=== PATIENT | male | born 1965 | race Caucasian/White ===

== ENCOUNTER 2020-04-04 18:39 | Outpatient (REF) | payer OTHER, SELFPAY ==
--- NOTE | 2020-04-04 18:51 | MR_ITS ---
EXAMINATION: MR LUMBAR SPINE WITHOUT CONTRAST CLINICAL INFORMATION: Disc degeneration, low back pain. COMPARISON: Plain films of the lumbar spine 01/12/2020. MRI scan of the lumbar spine 07/06/2012. TECHNIQUE: MRI of the lumbar spine was obtained using routine sequences without contrast. FINDINGS: VERTEBRAL BODIES AND PARASPINAL STRUCTURES: The study redemonstrates a dextroscoliosis. There are mild retrolistheses of L4 on L5 and L5 on S1. There is narrowing of intervertebral disc height with loss of signal throughout the lumbar spine, relatively sparing L3-L4. There are mild degenerative endplate contour changes with edematous signal toward the right at L5-S1. Vertebral body heights are maintained. No fractures are demonstrated. Marrow signal is homogenous overall. The visualized retroperitoneal and pelvic structures are unremarkable. CONUS MEDULLARIS AND CAUDA EQUINA: Normal, terminating at the level of L1-L2. The lower thoracic spinal cord appears normal. The cauda equina nerve roots and filum terminale appear normal. SPINAL LEVELS: L1-L2: The transverse processes are partially articulated. The facet joints appear normal. There is a small right foraminal disc protrusion without definite exiting nerve root impingement. There is no central stenosis. L2-L3: There is mild bilateral facet arthropathy with ligamenta flava hypertrophy and small facet joint effusions. There is a right foraminal disc protrusion extending far laterally with impingement on the extraforaminal right L2 nerve root, which has developed since the prior study. There is no central stenosis. L3-L4: There is mild bilateral facet arthropathy with ligamenta flava hypertrophy. Disc contour is normal. There is no central stenosis or foraminal narrowing. L4-L5: There is mild to moderate bilateral facet arthropathy. There is a small right paracentral disc protrusion which distorts the ventral thecal sac and narrows the right subarticular recess, similar compared to prior imaging. There is no foraminal nerve root impingement. There is no central stenosis. L5-S1: There is mild to moderate bilateral facet arthropathy. There is a broad-based posterior disc protrusion extending into the right greater than left neural foramina, and there is impingement on the exiting right L5 nerve root. The right neural foramen is further narrowed by right-sided facet osteophytes. There is no central stenosis. These findings appear similar compared to prior imaging. IMPRESSION: 1. At L2-L3 there is now a right foraminal disc protrusion extending far laterally with impingement on the extraforaminal right L2 nerve root. 2. At L4-L5 there is a small right paracentral disc protrusion with narrowing of the right subarticular recess, similar compared to prior imaging. 3. At L5-S1 there is a posterior disc protrusion extending into the right greater than left neural foramina, with impingement on the exiting right L5 nerve root. There is no central stenosis. These findings appear stable.
== END 2020-04-04 18:40 | disposition home or self-care (01) ==
LOC: HO.MRI 18:39
PROVIDERS: Visit Provider Anesthesiology
DX: M51.36 Other intervertebral disc degeneration, lumbar region (principal)
CPT/HCPCS: 72148

== ENCOUNTER → 2020-04-17 10:56 | Outpatient (BNVA) | payer OTHER, SELFPAY | PROVIDERS: PCP Internal Medicine; Visit Provider Anesthesiology | DX: M47.816 Spondylosis without myelopathy or radiculopathy, lumbar region (principal); E11.65 Type 2 diabetes mellitus with hyperglycemia; E11.42 Type 2 diabetes mellitus with diabetic polyneuropathy; G90.523 Complex regional pain syndrome I of lower limb, bilateral | CPT/HCPCS: 99214 ==

== ENCOUNTER 2020-05-28 06:17 | Outpatient (REF) | payer OTHER, SELFPAY ==
--- NOTE | 2020-05-28 08:38 | FL_ITS ---
EXAMINATION: XR FLUOROSCOPY WITH IMAGES CLINICAL INFORMATION: M47.816 - Spondylosis without myelopathy or radiculopathy, lumbar region COMPARISON: MRI lumbar spine 04/04/2020 TECHNIQUE: Fluoroscopy performed by Marjorie Tapia NP. Fluoroscopy time: 0.8 minutes DAP: 12.0 Gycm2 Images: 6 FINDINGS: There are bilateral spinal needles overlying outer aspect of the L3-L4, L4-L5, and L5-S1 neural foramen. Contrast is seen in the nerve sheaths with some transforaminal epidural extension. FL/FL guidance in treatment room IMPRESSION: Fluoroscopy for pain management procedures.
== END 2020-05-28 06:18 | disposition home or self-care (01) ==
LOC: HO.RADIR 06:17
PROVIDERS: Visit Provider Anesthesiology
DX: M47.816 Spondylosis without myelopathy or radiculopathy, lumbar region (principal); E11.65 Type 2 diabetes mellitus with hyperglycemia; E11.42 Type 2 diabetes mellitus with diabetic polyneuropathy; G90.523 Complex regional pain syndrome I of lower limb, bilateral
CPT/HCPCS: 64493; 64494; Q9967

== ENCOUNTER → 2020-06-03 15:17 | Outpatient (BNVA) | payer OTHER, SELFPAY | PROVIDERS: PCP Internal Medicine; Referring Provider Internal Medicine; Visit Provider Anesthesiology | DX: M47.816 Spondylosis without myelopathy or radiculopathy, lumbar region (principal); E11.65 Type 2 diabetes mellitus with hyperglycemia; E11.42 Type 2 diabetes mellitus with diabetic polyneuropathy; G90.523 Complex regional pain syndrome I of lower limb, bilateral | CPT/HCPCS: 99212 ==

== ENCOUNTER 2020-08-01 10:00 | Outpatient (RCR) | payer OTHER, SELFPAY ==
--- NOTE | 2020-06-24 13:00 | MHC.PT.EP ---
[facility] [place] Office [place] Office [place] Office [address] [place] Rand [address] [phone] F: [phone] F: [phone] F: [phone] F: [phone] Physical Therapy Plan of Care Date of Evaluation: 06/24/20 Date of Surgery: none Diagnosis: lumbar spondylosis without myelopathy Assessment: Patient is a 54 year old R handed male who presents with s/s consistent with lumbar spondylosis without myelopathy and radiculopathy. He is currently not working after losing his job in December. He has had chronic low back pain with MRI confirming significant pathology. He also admittedly has poorly controlled Diabetes with peripheral neuropathy. Current impairments include pain, ROM, strength, safety, independence, activity tolerance and functional mobility. Functional limitations include decreased ability to walk, stand, transfer, negotiate stairs, and perform weight bearing activities.. Patient is motivated with good rehab potential. Skilled PT will address impairments and functional limitations in order to achieve goals. 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 Manual therapy to restore motion and function. Therapeutic exercise to improve strength and flexibility. Neuromuscular re-education for posture and balance. Therapeutic activities to return to functional activities of daily living. Electronically signed by: Vikram Woo, PT Please sign and return to therapist. Thank you for your referral.
--- NOTE | 2020-08-23 07:51 | MHC.PT.DC ---
[facility] [place] Office [place] Office [place] Office [address] [place] Rand 140 [facility] [phone] F: [phone] F: [phone] F: [phone] F: [phone] Physical Therapy Discharge Report Diagnosis: lumbar spondylosis without myelopathy Date of Surgery: none Date of Evaluation: 06/24/20 Date of Discharge: 08/23/20 Treatments to Date: 11 Cancellations to Date: No Shows to Date: Discharge Status: Recommend MD Follow-up Discharge Summary: Due to no significant improvement on impairments and functional limitations, we will d/c to HEP with edu on TENS at this time. Pt had very limited activity tolerance, and was unable to have appreciable improvement over the course of skilled PT. He had TTP that never resolved, impaired joint mobility and alignment, and poor response to strength, ROM, flexibility interventions where he had a tough time progressing toward higher level intervention that would translate more to his daily function. As a result of the limited progress, we are holding PT at this time and referring back to MD. Electronically signed by: Vikram Woo, PT Please sign and return to therapist. Thank you for your referral.
== END 2020-08-23 07:52 | disposition home or self-care (01) ==
LOC: HO.PTCHIC 10:00
PROVIDERS: PCP Internal Medicine; Visit Provider Anesthesiology
DX: M47.816 Spondylosis without myelopathy or radiculopathy, lumbar region (principal)
CPT/HCPCS: 97014; 97110; 97112; 97140; 97162

== ENCOUNTER 2020-10-16 11:06 | Outpatient (REF) | payer OTHER, SELFPAY ==
[2020-10-16 14:03] LABS: Hematocrit 44.9 % (42-52); Hemoglobin 15.3 g/dl (14.0-18.0)
[2020-10-16 14:19] LABS: Estimated Average Glucose 163 mg/dL; Hemoglobin A1c % 7.3 %
[2020-10-16 14:42] LABS: Alanine Aminotransferase 39 U/L (0-40); Albumin Level 4.5 g/dL (3.5-5.0); Alkaline Phosphatase 117 U/L (39-117); Anion Gap 17 (12-20); Aspartate Amino Transferase 24 U/L (5-37); Blood Urea Nitrogen 26 mg/dL (9-16); Calcium 9.8 mg/dL (8.4-10.2); Carbon Dioxide 27 mmol/L (22-29); Chloride 101 mmol/L (96-108); Cholesterol 96 mg/dL; Estimated Glomerular Filt Rate 47; HDL Cholesterol 34 mg/dL; LDL Cholesterol Calculated 40 mg/dl; Potassium 4.7 mmol/L (3.3-5.1); Sodium 140 mmol/L (135-145); Total Protein 7.3 g/dL (6.5-8.0); Triglycerides 114 mg/dL
[2020-10-16 15:15] LABS: Glucose Random 300 mg/dL (60-115)
[2020-10-16 15:39] LABS: Creatinine Urine 186.37 mg/dL; Microalbum/Creatinine Ratio Ur 17.1 ug/mg cr
[2020-10-17 07:41] LABS: LDL Cholesterol Direct 41 mg/dL (<100)
== END 2020-10-16 11:07 | disposition home or self-care (01) ==
LOC: HO.HMGCLDS 11:06
PROVIDERS: PCP Internal Medicine; Visit Provider Internal Medicine
DX: E11.65 Type 2 diabetes mellitus with hyperglycemia (principal); E11.42 Type 2 diabetes mellitus with diabetic polyneuropathy; E78.9 Disorder of lipoprotein metabolism, unspecified; I10 Essential (primary) hypertension; E66.9 Obesity, unspecified; F33.9 Major depressive disorder, recurrent, unspecified; G90.523 Complex regional pain syndrome I of lower limb, bilateral; Z79.4 Long term (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
CPT/HCPCS: 36415; 80048; 80053; 80061; 82043; 83036; 83721; 85014; 85018

== ENCOUNTER → 2020-10-21 12:18 | Outpatient (BNVA) | payer OTHER, SELFPAY | PROVIDERS: PCP Internal Medicine; Visit Provider Anesthesiology ==

== ENCOUNTER 2020-12-10 06:30 | Outpatient (REF) | payer OTHER, SELFPAY ==
--- NOTE | ~2020-12-10 | FL_ITS ---
EXAMINATION: XR FLUOROSCOPY WITH IMAGES CLINICAL INFORMATION: Spondylosis without myelopathy COMPARISON: None. TECHNIQUE: Fluoroscopy performed by Marjorie church. Fluoroscopy time: 0.6 minutes DAP: 12.3 Gycm2 Images: 6 FINDINGS: There are needles positioned bilaterally lateral to S1 transverse processes, superior to bilateral L4 and L5 pedicles with contrast opacifying the soft tissues for pain management. Visualized bones and soft tissues are unremarkable. FL/FL guidance in treatment room IMPRESSION: Fluoroscopy was provided to an at least Marjorie Church during pain management
== END 2020-12-10 06:31 | disposition home or self-care (01) ==
LOC: HO.RADIR 06:30
PROVIDERS: Visit Provider Anesthesiology
DX: M47.816 Spondylosis without myelopathy or radiculopathy, lumbar region (principal); G90.523 Complex regional pain syndrome I of lower limb, bilateral; E11.65 Type 2 diabetes mellitus with hyperglycemia; E11.42 Type 2 diabetes mellitus with diabetic polyneuropathy
CPT/HCPCS: 64493; 64494; Q9967

== ENCOUNTER 2020-12-23 16:13 | Outpatient (REF) | payer OTHER, SELFPAY ==
--- NOTE | ~2020-12-23 | XR_ITS ---
EXAMINATION: XR HIP, RIGHT XR PELVIS CLINICAL INFORMATION: Osteoarthritis. COMPARISON: None TECHNIQUE: Two views of the right hip. Two AP views of the pelvis. FINDINGS: Imaged lower lumbar spine is unremarkable. Sacroiliac joints and pubic symphysis are intact. The sacrum is partially obscured by overlying bowel contents. Surgical clips project over the groin soft tissues. There is normal alignment of the right hip. No significant cartilage space loss. No displaced fracture or dislocation. XR/XR hip RT min 2V IMPRESSION: No acute abnormality.
== END 2020-12-23 16:14 | disposition home or self-care (01) ==
LOC: HO.XRAY 16:13
PROVIDERS: PCP Internal Medicine; Visit Provider Anesthesiology
DX: M47.816 Spondylosis without myelopathy or radiculopathy, lumbar region (principal); M16.9 Osteoarthritis of hip, unspecified; E11.65 Type 2 diabetes mellitus with hyperglycemia; E11.42 Type 2 diabetes mellitus with diabetic polyneuropathy; G90.523 Complex regional pain syndrome I of lower limb, bilateral
CPT/HCPCS: 73502; 99212

== ENCOUNTER → 2021-01-02 14:26 | Outpatient (BNVA) | payer OTHER, SELFPAY | PROVIDERS: PCP Internal Medicine; Visit Provider Anesthesiology | DX: E11.65 Type 2 diabetes mellitus with hyperglycemia (principal); E11.42 Type 2 diabetes mellitus with diabetic polyneuropathy; I10 Essential (primary) hypertension; G90.523 Complex regional pain syndrome I of lower limb, bilateral; M47.816 Spondylosis without myelopathy or radiculopathy, lumbar region; M16.9 Osteoarthritis of hip, unspecified; Z79.4 Long term (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 | CPT/HCPCS: 99212 ==

== ENCOUNTER 2021-01-09 08:47 | Outpatient (REF) | payer OTHER, SELFPAY ==
[2021-01-09 11:30] LABS: Hemoglobin 14.6 g/dl (14.0-18.0)
[2021-01-09 11:58] LABS: Microalbum/Creatinine Ratio Ur 3.9 ug/mg cr
[2021-01-09 12:06] LABS: Anion Gap 14 (12-20); Blood Urea Nitrogen 38 mg/dL (9-16); Carbon Dioxide 25 mmol/L (22-29); Chloride 102 mmol/L (96-108); Estimated Glomerular Filt Rate 52; Glucose Fasting 178 mg/dL (60-99); Sodium 137 mmol/L (135-145)
== END 2021-01-09 08:48 | disposition home or self-care (01) ==
LOC: HO.HMGCLDS 08:47
PROVIDERS: PCP Internal Medicine; Visit Provider Internal Medicine
DX: E11.42 Type 2 diabetes mellitus with diabetic polyneuropathy (principal); E11.65 Type 2 diabetes mellitus with hyperglycemia; E78.9 Disorder of lipoprotein metabolism, unspecified; I10 Essential (primary) hypertension; E66.9 Obesity, unspecified; F33.9 Major depressive disorder, recurrent, unspecified; G90.523 Complex regional pain syndrome I of lower limb, bilateral; Z79.4 Long term (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
CPT/HCPCS: 36415; 80048; 82043; 85014; 85018

== ENCOUNTER → 2021-02-17 13:57 | Outpatient (BNVA) | payer OTHER, SELFPAY | PROVIDERS: Visit Provider Internal Medicine | DX: L03.818 Cellulitis of other sites (principal) | CPT/HCPCS: 99212 ==

== ENCOUNTER 2021-03-04 06:30 | Outpatient (REF) | payer OTHER, SELFPAY ==
--- NOTE | ~2021-03-04 | FL_ITS ---
EXAMINATION: XR FLUOROSCOPY WITH IMAGES CLINICAL INFORMATION: Sacrococcygeal disorder. COMPARISON: None. TECHNIQUE: Fluoroscopy performed by Marjorie Tapia. Fluoroscopy time: 0.2 minutes DAP: 2.83 Gycm2 Images: 2 FINDINGS: There are 2 images revealing needle positioned along the SI joint with minimal contrast opacifying the SI joint and the adjacent soft tissues. FL/FL guidance in treatment room IMPRESSION: Fluoroscopy was provided to Marjorie Tapia during SI joint injection.
== END 2021-03-04 06:31 | disposition home or self-care (01) ==
LOC: HO.RADIR 06:30
PROVIDERS: Visit Provider Anesthesiology
DX: M53.3 Sacrococcygeal disorders, not elsewhere classified (principal)
CPT/HCPCS: 27096; J3300; Q9967

== ENCOUNTER 2021-03-22 10:46 | Inpatient (IN) | payer OTHER, SELFPAY ==
[2021-03-22] VITALS (9 sets, daily range): BP systolic 96–132; BP diastolic 48–97; PULSE 72–95; RESP 16–18; TEMP 36.7–36.8; O2SAT 96–99; BMI 35.3
--- NOTE | ~2021-03-22 | CT_ITS ---
EXAMINATION: CT abdomen pelvis wo con CLINICAL INFORMATION: Reason for Exam left flank pain ? kidney stone COMPARISON: No prior CT available for comparison. TECHNIQUE: Multidetector volumetric imaging was performed from the superior aspect of the liver through the pubic symphysis 100 mL of Omnipaque 300 injected Sagittal and coronal reformatted images were obtained on the technologist's workstation. This CT examination was performed using dose optimization techniques as appropriate, variously including the following: *Automated exposure control *Adjustment of mA and/or kV according to patient size (this includes techniques or standardized protocols for targeted exams where dose is matched to indication/reason for exam; i.e. extremities or head) *Use of iterative reconstruction technique DLP: 2675 mGy-cm FINDINGS: LOWER THORAX: Included lung bases are clear. HEPATOBILIARY: No focal hepatic lesions. No biliary ductal dilatation. GALLBLADDER: Gallbladder unremarkable. SPLEEN: Spleen is normal in size. PANCREAS: No focal mass or ductal dilatation. STOMACH AND GASTROINTESTINAL TRACT: Stomach is grossly unremarkable. There is no bowel distention or thickening. There are few diverticula, no evidence of diverticulitis. Appendix is unremarkable. ADRENALS: No adrenal nodules. KIDNEYS/URETERS: There is a left renal hydronephrosis and hydroureter secondary to 3 mm stone lodged in the proximal left ureter about 9 cm from the left ureteropelvic junction this stone measure 5 mm craniocaudally, it is too small for accurate Hounsfield unit attenuation measurement. There is nonobstructing 3 mm stone in the collecting system of the right kidney upper pole and about 4 4 mm nonobstructing stone lower calyx right kidney. No hydronephrosis on the right side. Mild perinephric fat stranding around the left kidney suggesting moderate degree of obstruction. URINARY BLADDER: Partially decompressed. PELVIC VISCERA: Unremarkable PERITONEUM: No free air or fluid. LYMPH NODES: No lymphadenopathy. VASCULAR:Abdominal aorta normal in size, no aneurysm found. BONES, ABDOMINAL WALL AND SOFT TISSUES: Age-appropriate changes of the spine and skeletal system, no destructive osteolytic or osteosclerotic bone lesion found CT/CT abdomen pelvis wo con IMPRESSION: 1. Mild to moderate left renal hydronephrosis and hydroureter secondary to 5 mm stone lodged in the mid course left ureter about 9 cm from the left UPJ. Mild perinephric fat stranding suggesting moderate degree of obstruction. 2. There are nonobstructing stones in the right kidney. 3. Mild diverticular disease.
[2021-03-22 11:59] LABS: Appearance Urine CLEAR; Color Urine YELLOW; Glucose Urine UA NEG (NEG); Leukocyte Esterase Urine NEG (NEG); Nitrite Urine NEG (NEG); PH 5.5 (5.0-8.0); Specific Gravity - Urine >= 1.030 (1.005-1.025); UACC Culture Trigger NO; Urine Blood 2+ (NEG); Urine Ketones NEG (NEG); Urine Protein NEG (NEG-TRACE)
[2021-03-22 12:08] LABS: RBC Urine 30-49 /HPF (0); Renal Epithelial Cells Urine 1+ /LPF
--- NOTE | 2021-03-22 12:32 | ED.GENADULT ---
HPI - General Adult General Chief complaint: General Medical Stated complaint: abd pain Time Seen by Provider: 03/22/21 12:30 History of Present Illness HPI narrative: Patient is 55-year-old male presents today with having abdominal pain. The pain is over the left flank area radiating to the left front. It is sharp in nature is been ongoing for last 3 4 days associated with nausea. No vomiting. Positive generalized malaise. No history of similar pain the past. History of kidney stones in the past. History diabetes. Question history of kidney problems. No cough no congestion or upper respiratory symptoms. Patient been vaccinated for COVID. No pain on urination. No frequency. No change in bowel movement. No history of abdominal surgery in the past. Related Data Home Medications Medication Instructions Recorded Confirmed bupropion HCl 300 mg 24 hr tablet, 300 mg PO QAM 04/17/20 01/15/21 extended release gabapentin 800 mg tablet 800 mg PO TID 04/17/20 01/15/21 insulin aspart U-100 100 unit/mL 6 unit SUBCUT TID 04/17/20 01/15/21 (3 mL) subcutaneous pen duloxetine 60 mg capsule,delayed 60 mg PO DAILY 06/19/20 01/15/21 release aripiprazole 5 mg tablet 5 mg PO DAILY 10/16/20 01/15/21 trazodone 50 mg tablet 50 mg PO BEDTIME 02/07/21 Previous Rx's Medication Instructions Recorded blood-glucose meter (FreeStyle #1 ea 05/30/20 Lite Meter) lancets 28 gauge (FreeStyle #100 ea 05/30/20 Lancets) aspirin 81 mg tablet,delayed 81 mg PO DAILY 90 Days #90 tab 06/13/20 release (Aspirin Low Dose) amlodipine 10 mg tablet 10 mg PO DAILY 90 Days #90 tab 08/28/20 allopurinol 300 mg tablet 300 mg PO DAILY #30 tab 09/09/20 furosemide 20 mg tablet 20 mg PO QAM 90 Days #90 tab 09/30/20 pioglitazone 15 mg tablet 15 mg PO DAILY #90 tab 10/11/20 insulin aspart U-100 100 unit/mL 7 unit SUBCUT TID 90 Days #18.9 ml 11/12/20 (3 mL) subcutaneous pen (Novolog Flexpen U-100 Insulin aspart) insulin glargine 100 unit/mL (3 60 unit SUBCUT QPM 90 Days #54 ml 11/12/20 mL) subcutaneous pen (Lantus Solostar U-100 Insulin) clotrimazole-betamethasone 1 1 appl TOPICAL BID #45 g 01/06/21 %-0.05 % topical cream atorvastatin 20 mg tablet 20 mg PO DAILY 90 Days #90 tab 01/09/21 spironolactone 25 mg tablet 25 mg PO DAILY 90 Days #90 tab 01/17/21 doxycycline hyclate 100 mg tablet 100 mg PO BID #14 tab 02/07/21 prednisone 20 mg tablet 20 mg PO .COMPLEX #18 tab 02/07/21 tizanidine 4 mg tablet 4 mg PO TID PRN 30 Days #90 tab 02/25/21 losartan 100 mg tablet 100 mg PO DAILY #90 tab 03/04/21 oxycodone 5 mg tablet 5 mg PO Q8H PRN #7 tab 03/22/21 tamsulosin 0.4 mg capsule (Flomax) 0.4 mg PO DAILY #7 cap 03/22/21 Allergies Allergy/AdvReac Type Severity Reaction Status Date / Time No Known Allergies Allergy Verified 03/22/21 11:06 Review of Systems Review of Systems: No fever no chills No cough no congestion or upper Respiratory symptoms. No diaphoresis Positive flank pain on the left side. Positive nausea. Yes all other systems are reviewed and are negative [facility] Past Medical History Medical History (Updated 03/22/21 @ 15:23 by Ligia Shultz MD) Complex regional pain syndrome of both lower extremities Depression, major, recurrent Diabetes 1.5, managed as type 1 Diabetes type 2, uncontrolled Diabetic peripheral neuropathy Fatty liver Gout 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, essential Kidney stones Lipid disorder 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 Spondylosis of lumbar region without myelopathy or radiculopathy Family History Family History Other Mental health disorder Social History Social History Housing: Condominium Alcohol intake: never Patient Tobacco Use Status: Never used Tobacco Second Hand Smoke Exposure: No Use of substances other than those prescribed or required for medical reasons: No Advance Directives: No Advance Directives Information Provided: No Current occupational status: disabled Physical Exam Vital Signs: Vital Signs: Last Vital Signs Temp 98.3 F 03/22/21 11:07 Pulse 73 03/22/21 15:07 Resp 18 03/22/21 15:07 BP 113/63 03/22/21 15:07 Pulse Ox 99 03/22/21 15:07 Body Mass Index 35.3 Appearance: Alert. Oriented X3. No acute distress. Eyes: Pupils equal, round and reactive to light. ENT: Pharynx normal. Neck: Normal inspection. Neck supple. No lymph nodes noted. No crepitus CVS: Normal heart rate and rhythm. Pulses normal. Normal S1 and S2 Respiratory: No respiratory distress. Breath sounds normal. No Wheezing. No rales Abdomen: Soft and nontender. No rigidity. No distention. good BS x4 Skin: Skin warm and dry. Normal skin color. Normal skin turgor. Extremities: No lower extremity edema. Neurovascular intact to all extremities. No Lacerations. No Rash Neuro: Oriented X 3. No motor deficit. No sensory deficit. Moving all extermities. No slurred speech Medical Decision Making MDM Narrative Medical decision making narrative: Patient's CT scan of the abdomen positive for a kidney stone. 5 mm mid ureter. Likely causing patient's symptoms. We will give pain medication. Patient's urine showed no infection. Creatinine mildly elevated will have patient follow-up with urology on an outpatient basis. Percocet for pain. Zofran for nausea. Flomax to help move the stone. Patient in stable condition with discharge home. Patient given additional pain medication however prior to discharge patient had increasing in amount of pain. Case was discussed with Urology. An official consult was placed. Will admit patient to the hospitalist service. Patient's case discussed with the hospitalist as well. Understood patient dilemma. Currently in stable condition awaiting admission. Lab Data Result diagrams: 03/22/21 12:56 03/22/21 12:56 Labs: Lab Results 03/22/21 03/22/21 03/22/21 Range/Units 11:50 12:56 12:56 WBC 8.3 (4.8-10.8) X10*3/uL RBC 4.22 L (4.60-5.80) X10*6/uL Hgb 13.2 L (14.0-18.0) g/dl Hct 37.9 L (42-52) % MCV 89.8 (80-98) fL MCH 31.3 (27.0-33.0) pg MCHC 34.8 (31.0-36.0) g/dl RDW 13.1 (11.0-16.0) % Plt Count 201 (160-400) X10*3/uL MPV 10.5 (9.4-12.4) fL Immature Gran % (Auto) 0.2 (0.0-0.4) % Neut % (Auto) 86.7 H (45-73) % Lymph % (Auto) 6.9 L (20-40) % [place] % (Auto) 4.8 (2-11) % Eos % (Auto) 1.0 (0-4) % Baso % (Auto) 0.4 (0-2) % Lymph # (Auto) 0.6 L (1.2-4.9) X10*3/uL [place] # (Auto) 0.4 (0.1-1.2) X10*3/uL Eos # (Auto) 0.1 (0.0-0.4) X10*3/uL Baso # (Auto) 0.0 (0.0-0.2) X10*3/uL Abs Immat Gran (auto) 0.02 (0.00-0.03) X10*3/uL Absolute Neuts (auto) 7.2 (2.0-8.3) X10*3/uL Absolute Nucleated RBC 0.000 (0.0-0.012) X10*3/uL Nucleated RBC % (auto) 0.0 (0.0-0.2) /100WBC Sodium 137 (135-145) mmol/L Potassium 4.8 (3.3-5.1) mmol/L Chloride 103 (96-108) mmol/L Carbon Dioxide 24 (22-29) mmol/L Anion Gap 15 (12-20) BUN 33 H (9-16) mg/dL Creatinine 1.77 H (0.5-1.4) mg/dL Estim Creat Clear Calc 69.8 Estimated GFR 40 Random Glucose 274 H (60-115) mg/dL Calcium 9.6 (8.4-10.2) mg/dL Total Bilirubin 0.6 (0.0-1.0) mg/dL Direct Bilirubin 0.3 (0.0-0.5) mg/dL AST 17 (5-37) U/L ALT 45 H (0-40) U/L Alkaline Phosphatase 77 D (39-117) U/L Total Protein 6.5 (6.5-8.0) g/dL Albumin 4.0 (3.5-5.0) g/dL Lipase 21 (8-78) U/L Urine Color YELLOW Urine Appearance CLEAR Urine pH 5.5 (5.0-8.0) Ur Specific [place] >= 1.030 H (1.005-1.025) Urine Protein NEG (NEG-TRACE) MG/DL Urine Glucose (UA) NEG (NEG) MG/DL Urine Ketones NEG (NEG) MG/DL Urine Blood 2+ H (NEG) Urine Nitrite NEG (NEG) Ur Leukocyte Esterase NEG (NEG) Urine RBC 30-49 H (0) /HPF Urine WBC 1-4 (0-4) /HPF Ur Squamous Epith Cells NONE /LPF Ur Renal Epithelial Cell 1+ /LPF Urine Bacteria NONE /LPF Discharge Plan Discharge Clinical Impression: Renal colic Patient Disposition: Admitted As Inpatient Instructions: Renal Colic (ED) Prescriptions: New tamsulosin [Flomax] 0.4 mg capsule 0.4 mg PO DAILY Qty: 7 RF: 0 oxycodone 5 mg tablet 5 mg PO Q8H PRN (Reason: pain) Qty: 7 RF: 0 No Action (DME) blood-glucose meter [FreeStyle Lite Meter] Kit See Rx Instructions .ROUTE .MEDSUPPLY Qty: 1 RF: 0 (DME) lancets [FreeStyle Lancets] 28 gauge misc See Rx Instructions .ROUTE .MEDSUPPLY Qty: 100 RF: 3 aspirin [Aspirin Low Dose] 81 mg tablet,delayed release (DR/EC) 81 mg PO DAILY 90 Days Qty: 90 RF: 3 amlodipine 10 mg tablet 10 mg PO DAILY 90 Days Qty: 90 RF: 0 allopurinol 300 mg tablet 300 mg PO DAILY Qty: 30 RF: 2 furosemide 20 mg tablet 20 mg PO QAM 90 Days Qty: 90 RF: 0 pioglitazone 15 mg tablet 15 mg PO DAILY Qty: 90 RF: 2 Lantus Solostar U-100 Insulin 100 unit/mL (3 mL) insulin pen 60 unit subcut QPM 90 Days Qty: 54 RF: 3 insulin aspart U-100 [Novolog Flexpen U-100 Insulin] 100 unit/mL (3 mL) insulin pen 7 unit subcut TID 90 Days Qty: 18.9 RF: 3 atorvastatin 20 mg tablet 20 mg PO DAILY 90 Days Qty: 90 RF: 0 spironolactone 25 mg tablet 25 mg PO DAILY 90 Days Qty: 90 RF: 0 tizanidine 4 mg tablet 4 mg PO TID PRN (Reason: muscle spasticity) 30 Days Qty: 90 RF: 11 losartan 100 mg tablet 100 mg PO DAILY Qty: 90 RF: 1 duloxetine 60 mg capsule,delayed release(DR/EC) 60 mg PO DAILY RF: 0 aripiprazole 5 mg tablet 5 mg PO DAILY RF: 0 clotrimazole-betamethasone 1-0.05 % cream 1 appl topical BID Qty: 45 RF: 1 trazodone 50 mg tablet 50 mg PO BEDTIME RF: 0 prednisone 20 mg tablet 20 mg PO .COMPLEX Qty: 18 RF: 0 doxycycline hyclate 100 mg tablet 100 mg PO BID Qty: 14 RF: 0 bupropion HCl 300 mg tablet extended release 24 hr 300 mg PO QAM RF: 0 insulin aspart U-100 100 unit/mL (3 mL) insulin pen 6 unit subcut TID RF: 0 gabapentin 800 mg tablet 800 mg PO TID RF: 0 Referrals: Sylvester Thompson MD [Physician] - 2 days
[2021-03-22 13:03] LABS: MANUAL DIFF FLAG NO
[2021-03-22 13:04] LABS: Basophils Percent Auto 0.4 % (0-2); Eosinophils Absolute Auto 0.1 X10*3/uL (0.0-0.4); Hematocrit 37.9 % (42-52); Hemoglobin 13.2 g/dl (14.0-18.0); Imm Gran Abs Auto 0.02 X10*3/uL (0.00-0.03); Imm Gran Pct Auto 0.2 % (0.0-0.4); Lymphocytes Absolute Auto 0.6 X10*3/uL (1.2-4.9); Lymphocytes Percent Auto 6.9 % (20-40); Mean Corpuscular HGB Conc 34.8 g/dl (31.0-36.0); Mean Corpuscular Hemoglobin 31.3 pg (27.0-33.0); Mean Corpuscular Volume 89.8 fL (80-98); Mean Platelet Volume 10.5 fL (9.4-12.4); Monocytes Absolute Auto 0.4 X10*3/uL (0.1-1.2); Monocytes Percent Auto 4.8 % (2-11); Neutrophils Absolute Auto 7.2 X10*3/uL (2.0-8.3); Neutrophils Percent Auto 86.7 % (45-73); Platelet Count 201 X10*3/uL (160-400); Red Blood Count 4.22 X10*6/uL (4.60-5.80); Red Cell Distribution Width 13.1 % (11.0-16.0); White Blood Count 8.3 X10*3/uL (4.8-10.8)
[2021-03-22] MEDS: HYDROmorphone HCl 0.5 MG/0.5 ML SYRINGE IVPUSH ×2 (13:14→15:37)
[2021-03-22] MEDS: 0.9 % Sodium Chloride 1,000 ML 999 ML IV (13:14)
[2021-03-22] MEDS: ondansetron HCL 4 MG/2 ML VIAL IVPUSH ×2 (13:14→20:45)
[2021-03-22 13:23] LABS: Alanine Aminotransferase 45 U/L (0-40); Alkaline Phosphatase 77 U/L (39-117); Anion Gap 15 (12-20); Aspartate Amino Transferase 17 U/L (5-37); Bilirubin Direct 0.3 mg/dL (0.0-0.5); Bilirubin Total 0.6 mg/dL (0.0-1.0); Blood Urea Nitrogen 33 mg/dL (9-16); Calcium 9.6 mg/dL (8.4-10.2); Carbon Dioxide 24 mmol/L (22-29); Chloride 103 mmol/L (96-108); Creatinine Clr Calc Pharmacy 69.8; Estimated Glomerular Filt Rate 40; Glucose Random 274 mg/dL (60-115); Lipase 21 U/L (8-78); Potassium 4.8 mmol/L (3.3-5.1); Sodium 137 mmol/L (135-145); Total Protein 6.5 g/dL (6.5-8.0)
--- NOTE | 2021-03-22 17:11 | P.HPHOSP_ITS ---
History of Present Illness Date of Service: 03/22/21 Attending physician on admission: Roque Wheeler Chief Complaint: renal stone 55-year-old male with multiple medical issues including diabetes, hypertension, HLP, ch back pain ,fatty liver , gout -patient has right-sided flank pain from few days-he said that he had similar symptoms 5 years ago and that time also had kidney stones and he passed kidney stone that time simultaneously. This time he is having significant pain from 3-4 days and feeling nauseated. Pain is intermittent, left sided , 7 to 8/10, spasmodic, radiated down in the from flank to down, only pain medication helps. Denies any fever or other urinary complaining including dysuria frequency or any hematuria. Denies any new complaint of chest pain or shortness of breath or chills or nausea or vomiting Denies any cough Denies any weakness or numbness. Social history fontaine: Patient does not drink alcohol or recreational drugs or smoking. Has chronic back pain and does not work because of that. Lives with his . Lab imaging reviewed personally and interpreted: Patient has creatinine of 1.77 which is increased from the baseline, imaging fontaine has [id number] and 5 mm stone in the ureter, UA shows rbc's which might be consistent because of renal stone. Patient was given IV Dilaudid as per ED physician -discussed case with urologist on-call as per ED recommended to admit inpatient-for renal colic management. Med reconciliation is still pending have made ED staff aware multiple times. 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 In addition they said that hypertension runs in the family. Social History Housing: [facility] Alcohol intake: never Patient Tobacco Use Status: Never used Tobacco Second Hand Smoke Exposure: No Use of substances other than those prescribed or required for medical reasons: No Advance Directives: No Advance Directives Information Provided: No Current occupational status: disabled Meds Allergies Allergy/AdvReac Type Severity Reaction Status Date / Time No Known Allergies Allergy Verified 03/22/21 11:06 Active Medications: Current Medications Enoxaparin Sodium (Enoxaparin Sodium 40 Mg/0.4 Ml Syringe) 40 mg SUBCUT Q24H [facility]I Hydromorphone HCl (Hydromorphone Hcl 1 Mg/Ml Syringe) 0.5 mg IVPUSH Q3H [facility]I; Protocol Lactated Ringer's (Lr) 1,000 mls @ 100 mls/hr IVCONT .Q10H [facility] Ondansetron HCl (Ondansetron Hcl 4 Mg/2 Ml Vial) 4 mg IVPUSH Q8H [facility]I Sodium Chloride (0.9 % Sodium Chloride Flush 3 Ml Syringe) 3 ml IVFLUSH QSHIFT [facility] Tamsulosin HCl (Tamsulosin Hcl 0.4 Mg Capsule) 0.4 mg PO DAILY HE[facility]I Home Medications Medication Instructions Recorded Confirmed Last Taken Type bupropion HCl 300 mg 24 hr tablet, 300 mg PO QAM 04/17/20 03/22/21 Unknown History extended release gabapentin 800 mg tablet 800 mg PO DAILY 04/17/20 03/22/21 Unknown History duloxetine 60 mg capsule,delayed 60 mg PO BEDTIME 06/19/20 03/23/21 Unknown History release aripiprazole 5 mg tablet 5 mg PO DAILY 10/16/20 03/22/21 Unknown History trazodone 50 mg tablet 100 mg PO BEDTIME 02/07/21 03/22/21 Unknown History gabapentin 800 mg tablet 1,600 mg PO BEDTIME 03/22/21 03/22/21 03/22/21 History (Neurontin) insulin glargine 100 unit/mL (3 50 unit SUBCUT QPM 03/22/21 03/22/21 Unknown History mL) subcutaneous pen (Lantus Solostar U-100 Insulin) penicillin V potassium 250 mg 250 mg PO BID 03/22/21 03/22/21 Unknown History tablet Physical Exam Vital Signs and Narrative: Vital Signs: Last Vital Signs Temp 98.3 F 03/22/21 11:07 Pulse 94 03/22/21 17:09 Resp 16 03/22/21 17:09 BP 132/97 H 03/22/21 17:09 Pulse Ox 99 03/22/21 15:07 Body Mass Index 35.3 Physical exam: Appearance: Alert.? Oriented X3.? not in distress.? Eyes: Pupils equal, round and reactive to light.? Sclera nonicteric.? ENT: Pharynx normal.? Moist mucous membranes. cvs: rrr, [id number] , no murmur res: clear to auscultation ,no rhonchii or wheezing abd: no rebound or guarding ,left flank pain going to groin,, bs present. ext pulses present , no cyanosis ,Gait well balanced well coordinated. neuro: axo3 , nonfocal. Results Labs CBC and Chem 7: 03/22/21 12:56 03/23/21 06:22 Labs: Laboratory Results - last 24 hr 03/22/21 03/22/21 03/22/21 11:50 12:56 12:56 MCV 89.8 MCH 31.3 MCHC 34.8 RDW 13.1 Plt Count 201 MPV 10.5 Immature Gran % (Auto) 0.2 Neut % (Auto) 86.7 H Lymph % (Auto) 6.9 L [place] % (Auto) 4.8 Eos % (Auto) 1.0 Baso % (Auto) 0.4 Lymph # (Auto) 0.6 L [place] # (Auto) 0.4 Eos # (Auto) 0.1 Baso # (Auto) 0.0 Abs Immat Gran (auto) 0.02 Absolute Neuts (auto) 7.2 Absolute Nucleated RBC 0.000 Nucleated RBC % (auto) 0.0 Anion Gap 15 Estim Creat Clear Calc 69.8 Estimated GFR 40 Random Glucose 274 H Calcium 9.6 Total Bilirubin 0.6 Direct Bilirubin 0.3 AST 17 ALT 45 H Alkaline Phosphatase 77 D Total Protein 6.5 Albumin 4.0 Lipase 21 Urine Color YELLOW Urine Appearance CLEAR Urine pH 5.5 Ur Specific [place] >= 1.030 H Urine Protein NEG Urine Glucose (UA) NEG Urine Ketones NEG Urine Blood 2+ H Urine Nitrite NEG Ur Leukocyte Esterase NEG Urine RBC 30-49 H Urine WBC 1-4 Ur Squamous Epith Cells NONE Ur Renal Epithelial Cell 1+ Urine Bacteria NONE Imaging Radiologist's Impressions: Impressions Abdomen/Pelvis CT 03/22/21 12:30 IMPRESSION: 1. Mild to moderate left renal hydronephrosis and hydroureter secondary to 5 mm stone lodged in the mid course left ureter about 9 cm from the left UPJ. Mild perinephric fat stranding suggesting moderate degree of obstruction. 2. There are nonobstructing stones in the right kidney. 3. Mild diverticular disease. Assessment and Plan (1) Renal colic: Status: Acute (2) GÉNESIS (acute kidney injury): Status: Acute 1. left sided Hydronephrosis secondary toObstructive uropathy / nephrolithiasis on left side: Started on IV fluids, IV Dilaudid, Flomax Urology evaluation 2. Diabetes fontaine fingersticks with sliding scale coverage, diabetic diet. 3. 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 we will continue home insulin blood pressure medications. 4. GÉNESIS on ckd : Probably related to hydronephrosis/obstructive uropathy creatinine range 1.2 to 1.4 range Started on IV fluids Check CPK. Urology evaluation 5. Hyperlipidemia: Continue home atorvastatin. DVT prophylaxis with Lovenox Above management discussed with patient in detail and he understand and in agree ment with above plan, in addition: Care discussed with patient and his - currently they want DNR DNI.. Total time spent 70 minutes. Quality Stroke Does the patient have a stroke diagnosis?: No VTE Prior VTE?: No VTE Risk Level:: Medical - moderate - high VTE Device Contraindication: N/A - Device Ordered VTE Drug Contraindication: N/A - Med Ordered
[2021-03-22] MEDS: Lactated Ringers 1,000 ML 100 ML IVCONT (18:08)
[2021-03-22] MEDS: Tamsulosin HCL 0.4 MG CAPSULE PO (18:09)
[2021-03-22] MEDS: HYDROmorphone HCl 1 MG/ML SYRINGE 0.5 MG IVPUSH ×2 (18:10→20:44)
[2021-03-22] MEDS: Enoxaparin Sodium 40 MG/0.4 ML SYRINGE SUBCUT (18:11)
[2021-03-22 18:29] LABS: COVID-19 Test Negative (Negative); IDNOW Serial# 08D9AD1C
--- NOTE | 2021-03-22 19:12 | PC.NURSE ---
Pt was ambulatory to BR with steady gait. Was able to void naturaley.
[2021-03-22 20:33] LABS: Glucose, Whole Blood 345 mg/dL (60-115)
[2021-03-22] MEDS: Insulin Lispro 100 UNIT/ML 3 ML VIAL SUBCUT (20:46)
[2021-03-22 22:08] LABS: Glucose, Whole Blood 248 mg/dL (60-115)
[2021-03-22] MEDS: traZODone HCL 100 MG TABLET PO (23:28)
[2021-03-22] MEDS: Gabapentin 400 MG CAPSULE 1600 MG PO (23:29)
[2021-03-23] VITALS (8 sets, daily range): BP systolic 104–149; BP diastolic 60–75; PULSE 67–93; RESP 16–19; TEMP 36.2–37; O2SAT 94–97
[2021-03-23] MEDS: DULoxetine HCl 60 MG CAPSULE.DR PO ×2 (00:38→10:22)
[2021-03-23] MEDS: ARIPiprazole 5 MG TABLET PO ×2 (00:39→10:23)
[2021-03-23] MEDS: Atorvastatin Calcium 20 MG TABLET PO ×2 (00:39→10:23)
--- NOTE | 2021-03-23 00:40 | PC.NURSE ---
according to the pt, his meds are incorrect in the system, most of the meds that are scheduled for morning but he takes them at night, gave the abilify, atorvastin, and duloxetine tonight
--- NOTE | 2021-03-23 00:51 | PC.NURSE ---
report given to imc rn
[2021-03-23] MEDS: HYDROmorphone HCl 1 MG/ML SYRINGE 0.5 MG IVPUSH ×2 (01:35→06:21)
[2021-03-23] MEDS: 0.9 % Sodium Chloride Flush 3 ML SYRINGE IVFLUSH ×3 (01:35→21:31)
[2021-03-23] MEDS: Lactated Ringers 1,000 ML 100 ML IVCONT ×2 (05:55→14:22)
[2021-03-23 08:06] LABS: Glucose, Whole Blood 137 mg/dL (60-115)
[2021-03-23 08:06] LABS: Anion Gap 15 (12-20); Blood Urea Nitrogen 22 mg/dL (9-16); Calcium 9.2 mg/dL (8.4-10.2); Carbon Dioxide 21 mmol/L (22-29); Chloride 107 mmol/L (96-108); Creatinine Clr Calc Pharmacy 100.4; Estimated Glomerular Filt Rate > 60; Glucose Random 147 mg/dL (60-115); Potassium 4.7 mmol/L (3.3-5.1); Sodium 138 mmol/L (135-145)
--- NOTE | 2021-03-23 08:17 | HO.PM.IMPN ---
Subjective Subjective Date of Service: 03/23/21 Interval History: Obstructive uropathy, renal colic Review of Systems abd /flank pain seems improving Denies any new complaint of chest pain or shortness of breath or fever or chills or nausea or vomiting Denies any cough Denies any weakness or numbness. Physical Exam Vital Signs: Vital Signs: Last Vital Signs Temp 98.0 F 03/23/21 07:27 Pulse 67 03/23/21 07:27 Resp 18 03/23/21 07:27 BP 104/75 03/23/21 07:27 Pulse Ox 97 03/23/21 07:27 Body Mass Index 35.3 Appearance: Alert.? Oriented X3.? not in distress.? Eyes: Pupils equal, round and reactive to light.? Sclera nonicteric.? ENT: Pharynx normal.? Moist mucous membranes. cvs: rrr, [id number] , no murmur res: clear to auscultation ,no rhonchii or wheezing abd: no rebound or guarding ,left flank pain seems improvin,, bs present. ext pulses present , no cyanosis ,Gait well balanced well coordinated. neuro: axo3 , nonfocal. Objective Data Active Medications Amlodipine Besylate (Amlodipine Besylate 10 Mg Tablet) 10 mg PO DAILY [facility]; Protocol Aripiprazole (Aripiprazole 5 Mg Tablet) 5 mg PO DAILY [facility] Last Admin: 03/23/21 00:39 Dose: 5 mg Documented by: FELICIA Aspirin (Aspirin Enteric Coated 81 Mg Tablet.) 81 mg PO DAILY [facility] Atorvastatin Calcium (Atorvastatin Calcium 20 Mg Tablet) 20 mg PO DAILY [facility] Last Admin: 03/23/21 00:39 Dose: 20 mg Documented by: FELICIA Bupropion HCl (Bupropion Hcl Xl 300 Mg Tab.Er.24h) 300 mg PO DAILY [facility] Dextrose (Dextrose 50 % 25 Gm/50 Ml Vial) 25 gm IVPUSH Q15M PRN; Protocol PRN Reason: per Hypoglycemia Standing Ord. Duloxetine HCl (Duloxetine Hcl 60 Mg Capsule.) 60 mg PO DAILY [facility] Last Admin: 03/23/21 00:38 Dose: 60 mg Documented by: FELICIA Enoxaparin Sodium (Enoxaparin Sodium 40 Mg/0.4 Ml Syringe) 40 mg SUBCUT Q24H [facility] Last Admin: 03/22/21 18:11 Dose: 40 mg Documented by: KATHRINE Gabapentin (Gabapentin 400 Mg Capsule) 800 mg PO DAILY [facility] Gabapentin (Gabapentin 400 Mg Capsule) 1,600 mg PO BEDTIME [facility] Last Admin: 03/22/21 23:29 Dose: 1,600 mg Documented by: FELICIA Glucose (Glucose Gel 15 Gm Gel..Gram.) 15 gm PO Q15M PRN; Protocol PRN Reason: per Hypoglycemia Standing Ord. Hydromorphone HCl (Hydromorphone Hcl 1 Mg/Ml Syringe) 0.5 mg IVPUSH Q3H HEIDI; Protocol Last Admin: 03/23/21 06:21 Dose: 0.5 mg Documented by: DOM Lactated Ringer's (Lr) 1,000 mls @ 100 mls/hr IVCONT .Q10H [facility] Last Admin: 03/23/21 05:55 Dose: 100 mls/hr Documented by: DOM Insulin Glargine (Insulin Glargine,Hum.Rec.Anlog 100 Unit/Ml 10 Ml Vial) 50 unit SUBCUT BEDTIME [facility] Insulin Human Lispro (Insulin Lispro 100 Unit/Ml 3 Ml Vial) 0 unit SUBCUT QIDACHS [facility]; Protocol Last Admin: 03/23/21 08:09 Dose: Not Given Documented by: OWEN Non-Admin Reason: No Insulin Coverage Insulin Human Lispro (Insulin Lispro 100 Unit/Ml 3 Ml Vial) 7 unit SUBCUT TID [facility] Losartan Potassium (Losartan Potassium 50 Mg Tablet) 100 mg PO DAILY [facility]; Protocol Ondansetron HCl (Ondansetron Hcl 4 Mg/2 Ml Vial) 4 mg IVPUSH Q8H [facility] Last Admin: 03/23/21 05:55 Dose: Not Given Documented by: DOM Non-Admin Reason: Patient Refused Sodium Chloride (0.9 % Sodium Chloride Flush 3 Ml Syringe) 3 ml IVFLUSH QSHIFT [facility] Last Admin: 03/23/21 01:35 Dose: 3 ml Documented by: DOM Spironolactone (Spironolactone 25 Mg Tablet) 25 mg PO DAILY [facility]; Protocol Tamsulosin HCl (Tamsulosin Hcl 0.4 Mg Capsule) 0.4 mg PO DAILY [facility] Last Admin: 03/22/21 18:09 Dose: 0.4 mg Documented by: HO.SANTEE Trazodone HCl (Trazodone Hcl 100 Mg Tablet) 100 mg PO BEDTIME [facility]I Last Admin: 03/22/21 23:28 Dose: 100 mg Documented by: FELICIA Labs CBC & Chem 7: 03/22/21 12:56 03/23/21 06:22 Labs: Laboratory Results - last 24 hr 03/22/21 03/22/21 03/22/21 11:50 12:56 12:56 MCV 89.8 MCH 31.3 MCHC 34.8 RDW 13.1 Plt Count 201 MPV 10.5 Immature Gran % (Auto) 0.2 Neut % (Auto) 86.7 H Lymph % (Auto) 6.9 L [place] % (Auto) 4.8 Eos % (Auto) 1.0 Baso % (Auto) 0.4 Lymph # (Auto) 0.6 L [place] # (Auto) 0.4 Eos # (Auto) 0.1 Baso # (Auto) 0.0 Abs Immat Gran (auto) 0.02 Absolute Neuts (auto) 7.2 Absolute Nucleated RBC 0.000 Nucleated RBC % (auto) 0.0 Anion Gap 15 Estim Creat Clear Calc 69.8 Estimated GFR 40 POC Glucose Random Glucose 274 H Calcium 9.6 Total Bilirubin 0.6 Direct Bilirubin 0.3 AST 17 ALT 45 H Alkaline Phosphatase 77 D Total Creatine Kinase 71 Total Protein 6.5 Albumin 4.0 Lipase 21 Urine Color YELLOW Urine Appearance CLEAR Urine pH 5.5 Ur Specific [place] >= 1.030 H Urine Protein NEG Urine Glucose (UA) NEG Urine Ketones NEG Urine Blood 2+ H Urine Nitrite NEG Ur Leukocyte Esterase NEG Urine RBC 30-49 H Urine WBC 1-4 Ur Squamous Epith Cells NONE Ur Renal Epithelial Cell 1+ Urine Bacteria NONE COVID-19 ([facility]) COVID-19 Clin Com 03/22/21 03/22/21 03/22/21 17:58 20:29 21:54 MCV MCH MCHC RDW Plt Count MPV Immature Gran % (Auto) Neut % (Auto) Lymph % (Auto) [place] % (Auto) Eos % (Auto) Baso % (Auto) Lymph # (Auto) [place] # (Auto) Eos # (Auto) Baso # (Auto) Abs Immat Gran (auto) Absolute Neuts (auto) Absolute Nucleated RBC Nucleated RBC % (auto) Anion Gap Estim Creat Clear Calc Estimated GFR POC Glucose 345 H 248 H Random Glucose Calcium Total Bilirubin Direct Bilirubin AST ALT Alkaline Phosphatase Total Creatine Kinase Total Protein Albumin Lipase Urine Color Urine Appearance Urine pH Ur Specific [place] Urine Protein Urine Glucose (UA) Urine Ketones Urine Blood Urine Nitrite Ur Leukocyte Esterase Urine RBC Urine WBC Ur Squamous Epith Cells Ur Renal Epithelial Cell Urine Bacteria COVID-19 ([facility]I) Negative COVID-19 Clin Com See Note 03/23/21 03/23/21 06:22 07:29 MCV MCH MCHC RDW Plt Count MPV Immature Gran % (Auto) Neut % (Auto) Lymph % (Auto) [place] % (Auto) Eos % (Auto) Baso % (Auto) Lymph # (Auto) [place] # (Auto) Eos # (Auto) Baso # (Auto) Abs Immat Gran (auto) Absolute Neuts (auto) Absolute Nucleated RBC Nucleated RBC % (auto) Anion Gap 15 Estim Creat Clear Calc 100.4 Estimated GFR > 60 POC Glucose 137 H Random Glucose 147 H D Calcium 9.2 Total Bilirubin Direct Bilirubin AST ALT Alkaline Phosphatase Total Creatine Kinase Total Protein Albumin Lipase Urine Color Urine Appearance Urine pH Ur Specific [place] Urine Protein Urine Glucose (UA) Urine Ketones Urine Blood Urine Nitrite Ur Leukocyte Esterase Urine RBC Urine WBC Ur Squamous Epith Cells Ur Renal Epithelial Cell Urine Bacteria COVID-19 ([facility]) COVID-19 Clin Com Assessment and Plan (1) Ureteral calculus: Status: Acute Assessment and Plan: ?? 1. left sided Hydronephrosis secondary toObstructive uropathy / nephrolithiasis on left side: Started on IV fluids, IV Dilaudid, Flomax 2. Diabetes fontaine fingersticks with sliding scale coverage, diabetic diet. 3. 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 we will continue home insulin blood pressure medications. 4. GÉNESIS on ckd :? Probably related to hydronephrosis/obstructive uropathy creatinine range 1.2 to 1.4 range, cr improving near absleine Check CPK-normal. Started on IV fluids Urology evaluation-moniter , npo past midnight , if does not pass stone -may need urology procedure. 5. Hyperlipidemia:? Continue home atorvastatin. DVT prophylaxis with Lovenox Quality Stroke Does the patient have a stroke diagnosis?: No VTE Prior VTE?: No VTE Risk Level:: Medical - moderate - high VTE Device Contraindication: N/A - Device Ordered VTE Drug Contraindication: N/A - Med Ordered
--- NOTE | 2021-03-23 08:32 | P.CNUR_ITS ---
History of Present Illness Consult details Consult date: 03/23/21 Reason for consult: other (Patient admitted overnight with a ureteral stone 3 x 5 mm. Approximately 9 cm from the UVJ. Patient does have a history of passing stones on his own in the past. Reviewed the stones location and the fact that this should pass on its own. Notably patient is not in acute distress does not have any) Review of Systems Review of Systems: Previous flank pain otherwise review systems is negative. 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 Spondylosis of lumbar region without myelopathy or radiculopathy Family History Family History Other Mental health disorder Social History Social History Housing: [facility] Alcohol intake: never Patient Tobacco Use Status: Never used Tobacco Second Hand Smoke Exposure: No Use of substances other than those prescribed or required for medical reasons: No Advance Directives: No Advance Directives Information Provided: No Current occupational status: disabled Meds Allergies Allergy/AdvReac Type Severity Reaction Status Date / Time No Known Allergies Allergy Verified 03/22/21 11:06 Active Medications: Current Medications Amlodipine Besylate (Amlodipine Besylate 10 Mg Tablet) 10 mg PO DAILY [facility]; Protocol Aripiprazole (Aripiprazole 5 Mg Tablet) 5 mg PO DAILY [facility] Last Admin: 03/23/21 00:39 Dose: 5 mg Documented by: Aspirin (Aspirin Enteric Coated 81 Mg Tablet.) 81 mg PO DAILY [facility] Atorvastatin Calcium (Atorvastatin Calcium 20 Mg Tablet) 20 mg PO DAILY [facility] Last Admin: 03/23/21 00:39 Dose: 20 mg Documented by: Bupropion HCl (Bupropion Hcl Xl 300 Mg Tab.Er.24h) 300 mg PO DAILY [facility] Dextrose (Dextrose 50 % 25 Gm/50 Ml Vial) 25 gm IVPUSH Q15M PRN; Protocol PRN Reason: per Hypoglycemia Standing Ord. Duloxetine HCl (Duloxetine Hcl 60 Mg Capsule.) 60 mg PO DAILY [facility] Last Admin: 03/23/21 00:38 Dose: 60 mg Documented by: Enoxaparin Sodium (Enoxaparin Sodium 40 Mg/0.4 Ml Syringe) 40 mg SUBCUT Q24H [facility] Last Admin: 03/22/21 18:11 Dose: 40 mg Documented by: Gabapentin (Gabapentin 400 Mg Capsule) 800 mg PO DAILY [facility] Gabapentin (Gabapentin 400 Mg Capsule) 1,600 mg PO BEDTIME [facility] Last Admin: 03/22/21 23:29 Dose: 1,600 mg Documented by: Glucose (Glucose Gel 15 Gm Gel..Gram.) 15 gm PO Q15M PRN; Protocol PRN Reason: per Hypoglycemia Standing Ord. Hydromorphone HCl (Hydromorphone Hcl 1 Mg/Ml Syringe) 0.5 mg IVPUSH Q3H [facility]; Protocol Last Admin: 03/23/21 06:21 Dose: 0.5 mg Documented by: Lactated Ringer's (Lr) 1,000 mls @ 100 mls/hr IVCONT .Q10H [facility] Last Admin: 03/23/21 05:55 Dose: 100 mls/hr Documented by: Insulin Glargine (Insulin Glargine,Hum.Rec.Anlog 100 Unit/Ml 10 Ml Vial) 50 unit SUBCUT BEDTIME [facility] Insulin Human Lispro (Insulin Lispro 100 Unit/Ml 3 Ml Vial) 0 unit SUBCUT QIDACHS [facility]; Protocol Last Admin: 03/23/21 08:09 Dose: Not Given Documented by: Insulin Human Lispro (Insulin Lispro 100 Unit/Ml 3 Ml Vial) 7 unit SUBCUT TID [facility] Losartan Potassium (Losartan Potassium 50 Mg Tablet) 100 mg PO DAILY [facility]; P rotocol Ondansetron HCl (Ondansetron Hcl 4 Mg/2 Ml Vial) 4 mg IVPUSH Q8H [facility] Last Admin: 03/23/21 05:55 Dose: Not Given Documented by: Sodium Chloride (0.9 % Sodium Chloride Flush 3 Ml Syringe) 3 ml IVFLUSH QSHIFT [facility] Last Admin: 03/23/21 01:35 Dose: 3 ml Documented by: Spironolactone (Spironolactone 25 Mg Tablet) 25 mg PO DAILY [facility]; Protocol Tamsulosin HCl (Tamsulosin Hcl 0.4 Mg Capsule) 0.4 mg PO DAILY [facility] Last Admin: 03/22/21 18:09 Dose: 0.4 mg Documented by: Trazodone HCl (Trazodone Hcl 100 Mg Tablet) 100 mg PO BEDTIME [facility] Last Admin: 03/22/21 23:28 Dose: 100 mg Documented by: Home Medications Medication Instructions Recorded Confirmed Last Taken Type bupropion HCl 300 mg 24 hr tablet, 300 mg PO QAM 04/17/20 03/22/21 Unknown History extended release gabapentin 800 mg tablet 800 mg PO DAILY 04/17/20 03/22/21 Unknown History duloxetine 60 mg capsule,delayed 60 mg PO BEDTIME 06/19/20 03/23/21 Unknown History release aripiprazole 5 mg tablet 5 mg PO DAILY 10/16/20 03/22/21 Unknown History trazodone 50 mg tablet 100 mg PO BEDTIME 02/07/21 03/22/21 Unknown History gabapentin 800 mg tablet 1,600 mg PO BEDTIME 03/22/21 03/22/21 03/22/21 History (Neurontin) insulin glargine 100 unit/mL (3 50 unit SUBCUT QPM 03/22/21 03/22/21 Unknown History mL) subcutaneous pen (Lantus Solostar U-100 Insulin) penicillin V potassium 250 mg 250 mg PO BID 03/22/21 03/22/21 Unknown History tablet Physical Exam Vital Signs: Vital Signs: Last Vital Signs Temp 98.0 F 03/23/21 07:27 Pulse 67 03/23/21 07:27 Resp 18 03/23/21 07:27 BP 104/75 03/23/21 07:27 Pulse Ox 97 03/23/21 07:27 Body Mass Index 35.3 Const: General: cooperative, healthy appearing, comfortable and no acute distress Orientation/consciousness: patient oriented x3 HENMT: Head: Yes normal to inspection Neck: Neck: Yes normal visual inspection Chest: Chest palpation & inspection: normal inspection of the chest Resp: Effort & Inspection: normal respiratory effort and able to speak in complete sentences Cardio: Rate: regular rate Rhythm: regular rhythm GI: Inspection: Yes normal to inspection : General: Yes no CVA tenderness Back/Spine/Pelvis: Back: no CVA tenderness Neuro: General: patient oriented x3 Extrem: General: Yes full ROM Psych: Appearance: grossly normal Results Labs Result diagrams: 03/22/21 12:56 03/23/21 06:22 Labs: Abnormal lab results 03/22/21 03/22/21 03/22/21 Range/Units 11:50 12:56 12:56 RBC 4.22 L (4.60-5.80) X10*6/uL Hgb 13.2 L (14.0-18.0) g/dl Hct 37.9 L (42-52) % Neut % (Auto) 86.7 H (45-73) % Lymph % (Auto) 6.9 L (20-40) % Lymph # (Auto) 0.6 L (1.2-4.9) X10*3/uL Carbon Dioxide (22-29) mmol/L BUN 33 H (9-16) mg/dL Creatinine 1.77 H (0.5-1.4) mg/dL POC Glucose (60-115) mg/dL Random Glucose 274 H (60-115) mg/dL ALT 45 H (0-40) U/L Ur Specific [place] >= 1.030 H (1.005-1.025) Urine Blood 2+ H (NEG) Urine RBC 30-49 H (0) /HPF 03/22/21 03/22/21 03/23/21 Range/Units 20:29 21:54 06:22 RBC (4.60-5.80) X10*6/uL Hgb (14.0-18.0) g/dl Hct (42-52) % Neut % (Auto) (45-73) % Lymph % (Auto) (20-40) % Lymph # (Auto) (1.2-4.9) X10*3/uL Carbon Dioxide 21 L (22-29) mmol/L BUN 22 H (9-16) mg/dL Creatinine (0.5-1.4) mg/dL POC Glucose 345 H 248 H (60-115) mg/dL Random Glucose 147 H D (60-115) mg/dL ALT (0-40) U/L Ur Specific [place] (1.005-1.025) Urine Blood (NEG) Urine RBC (0) /HPF 03/23/21 Range/Units 07:29 RBC (4.60-5.80) X10*6/uL Hgb (14.0-18.0) g/dl Hct (42-52) % Neut % (Auto) (45-73) % Lymph % (Auto) (20-40) % Lymph # (Auto) (1.2-4.9) X10*3/uL Carbon Dioxide (22-29) mmol/L BUN (9-16) mg/dL Creatinine (0.5-1.4) mg/dL POC Glucose 137 H (60-115) mg/dL Random Glucose (60-115) mg/dL ALT (0-40) U/L Ur Specific [place] (1.005-1.025) Urine Blood (NEG) Urine RBC (0) /HPF Short CBC 03/22/21 Range/Units 12:56 WBC 8.3 (4.8-10.8) X10*3/uL Hgb 13.2 L (14.0-18.0) g/dl Hct 37.9 L (42-52) % Plt Count 201 (160-400) X10*3/uL BMP 03/22/21 03/23/21 12:56 06:22 Sodium 137 138 Potassium 4.8 4.7 Chloride 103 107 Carbon Dioxide 24 21 L BUN 33 H 22 H Creatinine 1.77 H 1.23 Calcium 9.6 9.2 Cardiac Enzymes 03/22/21 Range/Units 12:56 Total Creatine Kinase 71 (38-174) U/L Liver Function 03/22/21 Range/Units 12:56 Total Bilirubin 0.6 (0.0-1.0) mg/dL Direct Bilirubin 0.3 (0.0-0.5) mg/dL AST 17 (5-37) U/L ALT 45 H (0-40) U/L Alkaline Phosphatase 77 D (39-117) U/L Albumin 4.0 (3.5-5.0) g/dL Urine 03/22/21 Range/Units 11:50 Urine Color YELLOW Urine Appearance CLEAR Urine pH 5.5 (5.0-8.0) Ur Specific [place] >= 1.030 H (1.005-1.025) Urine Protein NEG (NEG-TRACE) MG/DL Urine Glucose (UA) NEG (NEG) MG/DL All other labs normal. Imaging Abdomen CT scan report/results: report reviewed and image reviewed Assessment and Plan (1) Ureteral calculus: Status: Acute Procedures Date of Service Date of Service: 03/23/21
[2021-03-23] MEDS: buPROPion HCl XL 300 MG TAB.ER.24H PO (10:22)
[2021-03-23] MEDS: Gabapentin 400 MG CAPSULE 800 MG PO (10:23)
[2021-03-23] MEDS: Aspirin Enteric Coated 81 MG TABLET.DR PO (10:23)
[2021-03-23] MEDS: amLODIPine Besylate 10 MG TABLET PO (10:24)
[2021-03-23] MEDS: Tamsulosin HCL 0.4 MG CAPSULE PO (10:24)
[2021-03-23] MEDS: Insulin Lispro 100 UNIT/ML 3 ML VIAL 7 UNIT SUBCUT ×3 (10:24→21:28)
[2021-03-23] MEDS: Spironolactone 25 MG TABLET PO (10:24)
[2021-03-23] MEDS: Losartan Potassium 50 MG TABLET 100 MG PO (10:25)
--- NOTE | 2021-03-23 11:09 | MHC.CM.PN ---
Lives w/, drives, owns cane. No prior services. Plan is home w/ via when D/C ready. Patient switched from OBS to INP; no HERNANDEZ Form required. CM to follow.
[2021-03-23 11:16] LABS: Glucose, Whole Blood 122 mg/dL (60-115)
[2021-03-23 15:21] LABS: Appearance Urine CLEAR; Color Urine STRAW; Glucose Urine UA NEG (NEG); Leukocyte Esterase Urine TRACE (NEG); Nitrite Urine NEG (NEG); UACC Culture Trigger YES; Urine Blood 3+ (NEG); Urine Ketones NEG (NEG); Urine Protein NEG (NEG-TRACE)
[2021-03-23 15:31] LABS: Squamous Epithelial Cell Urine TRACE /LPF
[2021-03-23 16:26] LABS: Glucose, Whole Blood 138 mg/dL (60-115)
[2021-03-23] MEDS: Enoxaparin Sodium 40 MG/0.4 ML SYRINGE SUBCUT (17:36)
[2021-03-23 20:43] LABS: Glucose, Whole Blood 217 mg/dL (60-115)
[2021-03-23] MEDS: Insulin Lispro 100 UNIT/ML 3 ML VIAL SUBCUT (21:28)
[2021-03-23] MEDS: Gabapentin 400 MG CAPSULE 1600 MG PO (21:30)
[2021-03-23] MEDS: traZODone HCL 100 MG TABLET PO (21:30)
[2021-03-24] MEDS: Lactated Ringers 1,000 ML 100 ML IVCONT ×2 (01:20→10:12)
[2021-03-24 03:22] VITALS: BP 113/59; PULSE 81; RESP 18; TEMP 37; O2SAT 97
[2021-03-24 06:50] LABS: Anion Gap 15 (12-20); Blood Urea Nitrogen 20 mg/dL (9-16); Calcium 9.1 mg/dL (8.4-10.2); Carbon Dioxide 23 mmol/L (22-29); Chloride 106 mmol/L (96-108); Creatinine Clr Calc Pharmacy 101.3; Estimated Glomerular Filt Rate > 60; Glucose Random 113 mg/dL (60-115); Potassium 4.6 mmol/L (3.3-5.1); Sodium 139 mmol/L (135-145)
[2021-03-24 07:34] LABS: Glucose, Whole Blood 106 mg/dL (60-115)
[2021-03-24 08:00] VITALS: BP 143/81; PULSE 74; RESP 17; TEMP 36.3; O2SAT 95
[2021-03-24] MEDS: Tamsulosin HCL 0.4 MG CAPSULE PO (10:10)
[2021-03-24 10:11] VITALS: BP 140/80; PULSE 74
[2021-03-24] MEDS: Losartan Potassium 50 MG TABLET 100 MG PO (10:11)
[2021-03-24] MEDS: Gabapentin 400 MG CAPSULE 800 MG PO (10:11)
[2021-03-24] MEDS: buPROPion HCl XL 300 MG TAB.ER.24H PO (10:11)
[2021-03-24] MEDS: ARIPiprazole 5 MG TABLET PO (10:11)
[2021-03-24 10:12] VITALS: BP 140/80; PULSE 74
[2021-03-24] MEDS: amLODIPine Besylate 10 MG TABLET PO (10:12)
[2021-03-24] MEDS: Insulin Lispro 100 UNIT/ML 3 ML VIAL 7 UNIT SUBCUT (10:12)
[2021-03-24] MEDS: DULoxetine HCl 60 MG CAPSULE.DR PO (10:12)
[2021-03-24] MEDS: Spironolactone 25 MG TABLET PO (10:12)
[2021-03-24] MEDS: Atorvastatin Calcium 20 MG TABLET PO (10:12)
--- NOTE | 2021-03-24 10:57 | P.PNUR_ITS ---
Subjective Subjective Date of Service: 03/24/21 Interval history: Pain resolved early yesterday No pain medications in past 24 hours Creatinine 1.2 Can go home with prednisone and Flomax Follow-up in 4 weeks with ultrasound Physical Exam Vital Signs: Vital Signs: Last Vital Signs Temp 97.3 F 03/24/21 08:00 Pulse 74 03/24/21 10:12 Resp 17 03/24/21 08:00 BP 140/80 H 03/24/21 10:12 Pulse Ox 95 03/24/21 08:00 Body Mass Index 35.3 Const: General: cooperative, healthy appearing, comfortable and no acute distress Orientation/consciousness: patient oriented x3 HENMT: Face and sinus: Yes normal facial exam Mouth: moist mucous membranes Neck: Neck: Yes normal visual inspection, Yes full ROM and Yes trachea midline Chest: Chest palpation & inspection: normal inspection of the chest Resp: Effort & Inspection: normal respiratory effort, able to speak in complete sentences and no respiratory distress GI: Inspection: Yes normal to inspection Back/Spine/Pelvis: Cervical Spine: normal cervical lordosis Thoracic/Lumbar Spine: thoracic and lumbar spine normal to inspection Skin: General skin exam: no rashes or lesions noted Neuro: General: patient oriented x3, gait normal, tone normal and moves all extremities Extrem: General: Yes normal to inspection and Yes capillary refill normal Urology Results Labs CBC & Chem 7: 03/22/21 12:56 03/24/21 05:44 Labs: Laboratory Results - last 24 hr 03/23/21 03/23/21 03/23/21 11:02 14:21 16:10 Sodium Potassium Chloride Carbon Dioxide Anion Gap BUN Creatinine Estim Creat Clear Calc Estimated GFR POC Glucose 122 H 138 H Random Glucose Calcium Urine Color STRAW Urine Appearance CLEAR Urine pH 6.0 Ur Specific [place] 1.010 Urine Protein NEG Urine Glucose (UA) NEG Urine Ketones NEG Urine Blood 3+ H Urine Nitrite NEG Ur Leukocyte Esterase TRACE H Urine RBC 5-9 H Urine WBC 1-4 Ur Squamous Epith Cells TRACE Urine Bacteria NONE 03/23/21 03/24/21 03/24/21 20:31 05:44 07:28 Sodium 139 Potassium 4.6 Chloride 106 Carbon Dioxide 23 Anion Gap 15 BUN 20 H Creatinine 1.22 Estim Creat Clear Calc 101.3 Estimated GFR > 60 POC Glucose 217 H 106 Random Glucose 113 Calcium 9.1 Urine Color Urine Appearance Urine pH Ur Specific [place] Urine Protein Urine Glucose (UA) Urine Ketones Urine Blood Urine Nitrite Ur Leukocyte Esterase Urine RBC Urine WBC Ur Squamous Epith Cells Urine Bacteria Progress Note: A&P Assessment and plan (1) Ureteral calculus: Status: Acute Assessment and Plan: Follow-up 4 week ultrasound Fall Risk Details Current Medications: Current Medications Amlodipine Besylate (Amlodipine Besylate 10 Mg Tablet) 10 mg PO DAILY [facility]; Pr otocol Last Admin: 03/24/21 10:12 Dose: 10 mg Documented by: Aripiprazole (Aripiprazole 5 Mg Tablet) 5 mg PO DAILY [facility] Last Admin: 03/24/21 10:11 Dose: 5 mg Documented by: Aspirin (Aspirin Enteric Coated 81 Mg Tablet.) 81 mg PO DAILY [facility] Last Admin: 03/24/21 10:16 Dose: Not Given Documented by: Atorvastatin Calcium (Atorvastatin Calcium 20 Mg Tablet) 20 mg PO DAILY [facility] Last Admin: 03/24/21 10:12 Dose: 20 mg Documented by: Bupropion HCl (Bupropion Hcl Xl 300 Mg Tab.Er.24h) 300 mg PO DAILY [facility] Last Admin: 03/24/21 10:11 Dose: 300 mg Documented by: Dextrose (Dextrose 50 % 25 Gm/50 Ml Vial) 25 gm IVPUSH Q15M PRN; Protocol PRN Reason: per Hypoglycemia Standing Ord. Duloxetine HCl (Duloxetine Hcl 60 Mg Capsule.) 60 mg PO DAILY [facility] Last Admin: 03/24/21 10:12 Dose: 60 mg Documented by: Enoxaparin Sodium (Enoxaparin Sodium 40 Mg/0.4 Ml Syringe) 40 mg SUBCUT Q24H [facility] Last Admin: 03/23/21 17:36 Dose: 40 mg Documented by: Gabapentin (Gabapentin 400 Mg Capsule) 800 mg PO DAILY [facility] Last Admin: 03/24/21 10:11 Dose: 800 mg Documented by: Gabapentin (Gabapentin 400 Mg Capsule) 1,600 mg PO BEDTIME [facility] Last Admin: 03/23/21 21:30 Dose: 1,600 mg Documented by: Glucose (Glucose Gel 15 Gm Gel..Gram.) 15 gm PO Q15M PRN; Protocol PRN Reason: per Hypoglycemia Standing Ord. Hydromorphone HCl (Hydromorphone Hcl 1 Mg/Ml Syringe) 0.25 mg IVPUSH Q3H [facility]; Protocol Last Admin: 03/24/21 10:22 Dose: Not Given Documented by: Lactated Ringer's (Lr) 1,000 mls @ 100 mls/hr IVCONT .Q10H [facility] Last Admin: 03/24/21 10:12 Dose: 100 mls/hr Documented by: Insulin Glargine (Insulin Glargine,Hum.Rec.Anlog 100 Unit/Ml 10 Ml Vial) 50 unit SUBCUT BEDTIME [facility] Last Admin: 03/23/21 21:29 Dose: Not Given Documented by: Insulin Human Lispro (Insulin Lispro 100 Unit/Ml 3 Ml Vial) 0 unit SUBCUT QIDACHS [facility]; Protocol Last Admin: 03/24/21 08:00 Dose: Not Given Documented by: Insulin Human Lispro (Insulin Lispro 100 Unit/Ml 3 Ml Vial) 7 unit SUBCUT TID [facility] Last Admin: 03/24/21 10:12 Dose: 7 unit Documented by: Losartan Potassium (Losartan Potassium 50 Mg Tablet) 100 mg PO DAILY [facility]; Protocol Last Admin: 03/24/21 10:11 Dose: 100 mg Documented by: Ondansetron HCl (Ondansetron Hcl 4 Mg/2 Ml Vial) 4 mg IVPUSH Q8H [facility] Last Admin: 03/24/21 05:15 Dose: Not Given Documented by: Sodium Chloride (0.9 % Sodium Chloride Flush 3 Ml Syringe) 3 ml IVFLUSH QSHIFT [facility] Last Admin: 03/24/21 10:16 Dose: Not Given Documented by: Spironolactone (Spironolactone 25 Mg Tablet) 25 mg PO DAILY [facility]; Protocol Last Admin: 03/24/21 10:12 Dose: 25 mg Documented by: Tamsulosin HCl (Tamsulosin Hcl 0.4 Mg Capsule) 0.4 mg PO DAILY [facility] Last Admin: 03/24/21 10:10 Dose: 0.4 mg Documented by: Trazodone HCl (Trazodone Hcl 100 Mg Tablet) 100 mg PO BEDTIME [facility] Last Admin: 03/23/21 21:30 Dose: 100 mg Documented by: Time Spent With Patient Time: Total time spent is greater than 50% in coordination of care (as documented) at patient's floor/unit and/or counseling patient: Time with patient: less than 15 minutes Progress Note: Quality Stroke Does the patient have a stroke diagnosis?: No
--- NOTE | 2021-03-24 11:14 | PM.DS ---
DS: Providers Provider Date of Service: 03/24/21 Date of admission: 03/22/21 17:09 Date of discharge: 03/24/21 Primary care physician: Gabby Kelly MD Consults: 03/22/21 16:32 Consult to Urology Stat Consulting Provider: Juvencio Marquez III Reason for consultation: kidney stone 03/22/21 16:52 Consult to Urology Routine Consulting Provider: Juvencio Marquez III Reason for consultation: renal colic Has provider been notified: No DS: Diagnosis Discharge Diagnosis (1) Ureteral calculus: Status: Acute DS: Summary Hospital Course Hospital Course: 55-year-old male with multiple medical issues including diabetes, hypertension, HLP, ch back pain ,fatty liver , gout -patient has right-sided flank pain from few days-he said that he had similar symptoms 5 years ago and that time also had kidney stones and he passed kidney stone that time simultaneously.? This time he is having significant pain from 3-4 days and feeling nauseated. Pain is intermittent, left sided , 7 to 8/10, spasmodic, radiated down in the? from flank to down, only pain medication helps. Denies any fever or other urinary complaining including dysuria frequency or any hematuria. Denies any new complaint of chest pain or shortness of breath or chills or nausea or vomiting Denies any cough Denies any weakness or numbness. Social history fontaine:? Patient does not drink alcohol or recreational drugs or smoking. Has chronic back pain and does not work because of that. Lives with his . Lab imaging reviewed personally and interpreted:? Patient has creatinine of 1.77 which is increased from the baseline, imaging fontaine has [id number] and 5 mm stone in the ureter, UA shows rbc's which might be consistent because of renal stone. Patient was given IV Dilaudid as per ED physician -discussed case with urologist on-call as per ED recommended to admit inpatient-for renal colic management. Med reconciliation is still pending have made ED staff aware multiple time. Hospital course: Patient came with obstructive uropathy secondary to nephrolithiasis and also found to have GÉNESIS: Improved with hydration and pain medication and Flomax. Patient is going home and needs to follow up outpatient with urologist Dr. zepeda. Will hold Lasix since has recent GÉNESIS and need to repeat BMP with PCP and further management and consider starting Lasix after repeating BMP with PCP. Time Spent with Patient Time attestation: Total time spent providing and/or coordinating discharge services: Discharge coordination time: Greater than 30 minutes Quality: Stroke Does the patient have a stroke diagnosis?: No Physical Exam Vital Signs: Vital Signs: Last Vital Signs Temp 97.3 F 03/24/21 08:00 Pulse 74 03/24/21 10:12 Resp 17 03/24/21 08:00 BP 140/80 H 03/24/21 10:12 Pulse Ox 95 03/24/21 08:00 Body Mass Index 35.3 Physical exam: Appearance: Alert.? Oriented X3.? not in distress.? Eyes: Pupils equal, round and reactive to light.? Sclera nonicteric.? ENT: Pharynx normal.? Moist mucous membranes. cvs: rrr, [id number] , no murmur res: clear to auscultation ,no rhonchii or wheezing abd: no rebound or guarding ,nt, bs present. ext pulses present , no cyanosis ,Gait well balanced well coordinated. neuro: axo3 , nonfocal. DS: Data Data Completed and Pending Labs on day of discharge: Laboratory Results - last 24 hr 03/23/21 03/23/21 03/23/21 11:02 14:21 16:10 Sodium Potassium Chloride Carbon Dioxide Anion Gap BUN Creatinine Estim Creat Clear Calc Estimated GFR POC Glucose 122 H 138 H Random Glucose Calcium Urine Color STRAW Urine Appearance CLEAR Urine pH 6.0 Ur Specific [place] 1.010 Urine Protein NEG Urine Glucose (UA) NEG Urine Ketones NEG Urine Blood 3+ H Urine Nitrite NEG Ur Leukocyte Esterase TRACE H Urine RBC 5-9 H Urine WBC 1-4 Ur Squamous Epith Cells TRACE Urine Bacteria NONE 03/23/21 03/24/21 03/24/21 20:31 05:44 07:28 Sodium 139 Potassium 4.6 Chloride 106 Carbon Dioxide 23 Anion Gap 15 BUN 20 H Creatinine 1.22 Estim Creat Clear Calc 101.3 Estimated GFR > 60 POC Glucose 217 H 106 Random Glucose 113 Calcium 9.1 Urine Color Urine Appearance Urine pH Ur Specific [place] Urine Protein Urine Glucose (UA) Urine Ketones Urine Blood Urine Nitrite Ur Leukocyte Esterase Urine RBC Urine WBC Ur Squamous Epith Cells Urine Bacteria Discharge Plan Discharge Patient Disposition: Home, Self-Care Discharge Diagnosis: Obstructive uropathy secondary to nephrolithiasis, GÉNESIS. Referrals: Sylvester Zepeda MD [Physician] - 2 days Gabby Kelly MD [Primary Care Provider] - 1 Week Discharge Medications: New tamsulosin 0.4 mg Capsule 0.4 mg PO BEDTIME 14 Days Qty: 14 RF: 0 Continued (DME) blood-glucose meter [FreeStyle Lite Meter] Kit See Rx Instructions .ROUTE .MEDSUPPLY Qty: 1 RF: 0 (DME) lancets [FreeStyle Lancets] 28 gauge misc See Rx Instructions .ROUTE .MEDSUPPLY Qty: 100 RF: 3 aspirin [Aspirin Low Dose] 81 mg tablet,delayed release (DR/EC) 81 mg PO DAILY 90 Days Qty: 90 RF: 3 amlodipine 10 mg tablet 10 mg PO DAILY 90 Days Qty: 90 RF: 0 pioglitazone 15 mg tablet 15 mg PO DAILY Qty: 90 RF: 2 insulin aspart U-100 [Novolog Flexpen U-100 Insulin] 100 unit/mL (3 mL) insulin pen 7 unit subcut TID 90 Days Qty: 18.9 RF: 3 atorvastatin 20 mg tablet 20 mg PO DAILY 90 Days Qty: 90 RF: 0 spironolactone 25 mg tablet 25 mg PO DAILY 90 Days Qty: 90 RF: 0 losartan 100 mg tablet 100 mg PO DAILY Qty: 90 RF: 1 penicillin V potassium 250 mg Tablet 250 mg PO BID RF: 0 Lantus Solostar U-100 Insulin 100 unit/mL (3 mL) insulin pen 50 unit subcut QPM RF: 0 gabapentin [Neurontin] 800 mg Tablet 1,600 mg PO BEDTIME RF: 0 duloxetine 60 mg capsule,delayed release(DR/EC) 60 mg PO BEDTIME RF: 0 aripiprazole 5 mg tablet 5 mg PO DAILY RF: 0 trazodone 50 mg tablet 100 mg PO BEDTIME RF: 0 bupropion HCl 300 mg tablet extended release 24 hr 300 mg PO QAM RF: 0 gabapentin 800 mg tablet 800 mg PO DAILY RF: 0 Held furosemide 20 mg tablet 20 mg PO QAM 90 Days Qty: 90 RF: 0 Hold Instructions: Resume on 03/26/21. Check BMP in 1 week with PCP and restart Lasix. No Action allopurinol 300 mg tablet 300 mg PO DAILY Qty: 30 RF: 2 Discharge Orders: Discharge Order (Routine); Ordered 03/24/21 Ordered By: Roque Wheeler Diet: advance to usual diet, low fat, low cholesterol and low salt diet Activity on Discharge: As tolerated Stand Alone Forms: Patient Portal Discharge page Care Plan Goals: Patient came with kidney stone and also found to have GÉNESIS: Improved with hydration and pain medication and Flomax. Patient is going home and needs to follow up outpatient with urologist Dr. zepeda. Will hold Lasix since has recent GÉNESIS and need to repeat BMP with PCP and further management and consider starting Lasix after repeating BMP with PCP. Health Concerns: As above. Plan of Treatment: As above. Assessment: As above. Patient Instructions: Renal Colic (ED) Discharge Date/Time: 03/24/21 13:15
--- NOTE | 2021-03-24 11:20 | MHC.CM.PN ---
pt dcd home no skilled servceis ordered by
[2021-03-24 11:27] VITALS: BP 129/76; PULSE 82; RESP 18; TEMP 36.5; O2SAT 94
[2021-03-24 11:36] LABS: Glucose, Whole Blood 132 mg/dL (60-115)
== END 2021-03-24 13:15 | disposition home or self-care (01) | DRG 465 ==
LOC: HO.ED 16:32 → HO.EDOVER 16:58 → HO.IMC 03-23 00:20
PROVIDERS: Admitting Provider Internal Medicine; Emergency Provider Emergency Medicine Emergency Medical Services; PCP Internal Medicine; Visit Provider Internal Medicine
DX: N13.2 Hydronephrosis with renal and ureteral calculous obstruction (principal); N17.9 Acute kidney failure, unspecified; E11.22 Type 2 diabetes mellitus with diabetic chronic kidney disease; Z87.442 Personal history of urinary calculi; K76.0 Fatty (change of) liver, not elsewhere classified; E78.5 Hyperlipidemia, unspecified; G89.29 Other chronic pain; I12.9 Hypertensive chronic kidney disease with stage 1 through stage 4 chronic kidney disease, or unspecified chronic kidney disease; N18.9 Chronic kidney disease, unspecified; Z20.822 Contact with and (suspected) exposure to COVID-19; Z79.4 Long term (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; Z79.82 Long term (current) use of aspirin; Z79.899 Other long term (current) drug therapy
CPT/HCPCS: 36415; 74176; 80048; 80076; 81001; 81003; 82550; 82947; 83690; 85025; 87086; 87635; 99285; J1170; J1650; J2405

== ENCOUNTER 2021-03-31 14:24 | Outpatient (REF) | payer OTHER, SELFPAY ==
--- NOTE | ~2021-03-31 | US_ITS ---
EXAMINATION: US RETROPERITONEAL LIMITED (RENAL ONLY) CLINICAL INFORMATION: Calculus of kidney. COMPARISON: CT abdomen and pelvis without contrast dated 03/22/2021. TECHNIQUE: Real-time imaging of the kidneys. Technically difficult study secondary to body habitus. FINDINGS: RIGHT KIDNEY: 12.5 x 5.6 x 5.7 cm (SAG x AP x TRV). The kidney is normal in size, contour, and echogenicity. Renal cortical thickness is normal. There is a 8 x 6 x 8 mm stone in the midpole. No focal parenchymal lesions or hydronephrosis. LEFT KIDNEY: 12.9 x 6.4 x 5.9 cm (SAG x AP x TRV). The kidney is normal in size, contour, and echogenicity. Renal cortical thickness is normal. No calculi or focal parenchymal lesions. No hydronephrosis. Comparison with previous CT 03/22/2021, left hydronephrosis has resolved. US/US renal BI IMPRESSION: Right renal stone. Resolved left hydronephrosis.
== END 2021-03-31 14:25 | disposition home or self-care (01) ==
LOC: HO.HMGCX 14:24
PROVIDERS: PCP Internal Medicine; Visit Provider Urology
DX: N20.0 Calculus of kidney (principal); N20.1 Calculus of ureter
CPT/HCPCS: 76775

== ENCOUNTER → 2021-04-03 08:49 | Outpatient (BNVA) | payer OTHER, SELFPAY | PROVIDERS: PCP Internal Medicine; Visit Provider Anesthesiology | DX: E11.65 Type 2 diabetes mellitus with hyperglycemia (principal); E11.42 Type 2 diabetes mellitus with diabetic polyneuropathy; M16.9 Osteoarthritis of hip, unspecified; M47.816 Spondylosis without myelopathy or radiculopathy, lumbar region; G90.523 Complex regional pain syndrome I of lower limb, bilateral | CPT/HCPCS: 99212 ==

== ENCOUNTER → 2021-04-25 13:24 | Outpatient (BNVA) | payer OTHER, SELFPAY | PROVIDERS: PCP Internal Medicine; Visit Provider Urology ==

== ENCOUNTER 2021-05-14 06:52 | Day surgery (SDC) | payer OTHER, SELFPAY ==
--- NOTE | 2021-05-13 12:04 | HO.ANESPROP2 ---
Documented by User: Nidia Ortiz NP 05/13/21 12:07 HPI - Anesthesia Eval Consult details Narrative: 55yo M for Right Lithotripsy ESW No prev ESWL on record PMFSH Active Problems Active Problems: All Active Problems (Updated 04/25/21 @ 13:28 by Sylvester Thompson MD) Nephrolithiasis (Acute) Chronic pain syndrome (Acute) Ureteral calculus (Acute) GÉNESIS (acute kidney injury) (Acute) Obesity (Acute) Cellulitis (Acute) Gout (Acute) Dermatitis (Acute) Sacroiliac joint pain (Acute) Renal colic (Acute) Depression, major, recurrent (Acute) Lipid disorder (Acute) 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, essential (Acute) shelter (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 (Acute) Diabetes 1.5, managed as type 1 (Acute) Complex regional pain syndrome of both lower extremities (Acute) Diabetic peripheral neuropathy (Acute) Diabetes type 2, uncontrolled (Acute) Spondylosis of lumbar region without myelopathy or radiculopathy (Acute) Past Medical History Medical History (Updated 04/25/21 @ 13:28 by Sylvester Thompson MD) Chronic pain syndrome Complex regional pain syndrome of both lower extremities Depression, major, recurrent Diabetes 1.5, managed as type 1 Diabetes type 2, uncontrolled Diabetic peripheral neuropathy Fatty liver Gout 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, essential Kidney stones 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 If so, by whom?: No Are you DNR?: No Advance Directives: No Advance Directives Information Provided: Yes Recently lost weight without trying: No Nutrition Risks: No Nutritional Risk Poor oral hygiene: No Current occupational status: disabled Meds Allergies Allergy/AdvReac Type Severity Reaction Status Date / Time No Known Allergies Allergy Verified 04/03/21 09:10 Home Medications Medication Instructions Recorded Confirmed Last Taken Type bupropion HCl 300 mg 24 hr tablet, 300 mg PO QAM 04/17/20 03/22/21 Unknown History extended release gabapentin 800 mg tablet 800 mg PO DAILY 04/17/20 03/22/21 Unknown History duloxetine 60 mg capsule,delayed 60 mg PO BEDTIME 06/19/20 03/23/21 Unknown History release aripiprazole 5 mg tablet 5 mg PO DAILY 10/16/20 03/22/21 Unknown History trazodone 50 mg tablet 100 mg PO BEDTIME 02/07/21 03/22/21 Unknown History gabapentin 800 mg tablet 1,600 mg PO BEDTIME 03/22/21 03/22/21 03/22/21 History (Neurontin) insulin glargine 100 unit/mL (3 50 unit SUBCUT QPM 03/22/21 03/22/21 Unknown History mL) subcutaneous pen (Lantus Solostar U-100 Insulin) penicillin V potassium 250 mg 250 mg PO BID 03/22/21 03/22/21 Unknown History tablet penicillin V potassium 250 mg mg PO 05/14/21 05/14/21 Unknown History tablet Exam Exam Date and Time: May 13, 2021 1204 Pertinent Lab Results Pertinent Lab Results: Laboratory Tests 03/22/21 03/24/21 12:56 05:44 WBC 8.3 Hgb 13.2 L Hct 37.9 L Plt Count 201 Sodium 139 Potassium 4.6 Chloride 106 Carbon Dioxide 23 BUN 20 H Creatinine 1.22 Assessment and Plan Assessment Anesthesia Assessment: Chart Reviewed Documented by User: Laura Espinosa MD 05/14/21 08:29 [facility] Past Medical History Medical History (Updated 04/25/21 @ 13:28 by Sylvester Thompson MD) Chronic pain syndrome Complex regional pain syndrome of both lower extremities Depression, major, recurrent Diabetes 1.5, managed as type 1 Diabetes type 2, uncontrolled Diabetic peripheral neuropathy Fatty liver Gout 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, essential Kidney stones Lipid disorder shelter (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 Spondylosis of lumbar region without myelopathy or radiculopathy Family History Family History Other Mental health disorder Family history of problems with anesthesia: No Surgical History Surgical History (Updated 05/14/21 @ 07:39 by Sophy Rubio RN) Hx of colonoscopy Social History Social History Housing: [facility] Alcohol intake: never Patient Tobacco Use Status: Never used Tobacco Second Hand Smoke Exposure: No Use of substances other than those prescribed or required for medical reasons: No Have you been hit, kicked, punched, or otherwise hurt by someone within the past year? If so, by whom?: No Are you DNR?: No Advance Directives: No Advance Directives Information Provided: Yes Recently lost weight without trying: No Nutrition Risks: No Nutritional Risk Poor oral hygiene: No Current occupational status: disabled [employer] Allergies Allergy/AdvReac Type Severity Reaction Status Date / Time No Known Allergies Allergy Verified 04/03/21 09:10 Home Medications Medication Instructions Recorded Confirmed Last Taken Type bupropion HCl 300 mg 24 hr tablet, 300 mg PO QAM 04/17/20 03/22/21 Unknown History extended release gabapentin 800 mg tablet 800 mg PO DAILY 04/17/20 03/22/21 Unknown History duloxetine 60 mg capsule,delayed 60 mg PO BEDTIME 06/19/20 03/23/21 Unknown History release aripiprazole 5 mg tablet 5 mg PO DAILY 10/16/20 03/22/21 Unknown History trazodone 50 mg tablet 100 mg PO BEDTIME 02/07/21 03/22/21 Unknown History gabapentin 800 mg tablet 1,600 mg PO BEDTIME 03/22/21 03/22/21 03/22/21 History (Neurontin) insulin glargine 100 unit/mL (3 50 unit SUBCUT QPM 03/22/21 03/22/21 Unknown History mL) subcutaneous pen (Lantus Solostar U-100 Insulin) penicillin V potassium 250 mg 250 mg PO BID 03/22/21 03/22/21 Unknown History tablet penicillin V potassium 250 mg mg PO 05/14/21 05/14/21 Unknown History tablet Exam Airway Mallampati Class: III ( Cap upper right) TM Dist: >3cm Neck ROM: Full Heart: rrr Lungs: bl breath sounds Assessment and Plan Assessment Anesthesia Assessment: Anesthesia Plan Discussed and Chart Reviewed Final Anesthetic Review Family History of Problems with Anesthesia: No NPO: Yes ASA Class: III Final Preanesthetic Review: Meds/Zeb Chart Reviewed Patient Risk: Intermediate Procedure Risk: Intermediate Anesthetic Plan Anesthetic Plan: MAC: Disposition: Standard PACU
--- NOTE | ~2021-05-14 | XR_ITS ---
EXAMINATION: XR ABDOMEN KUB CLINICAL INDICATION: Nephrolithiasis COMPARISON: Previous CT of the abdomen and pelvis February 2021 and renal ultrasound March 2021 TECHNIQUE: AP view of the abdomen. FINDINGS: No stone is seen by KUB. The bowel gas pattern is normal. There is curvature of the lumbar spine to the right and degenerative change. XR/XR KUB IMPRESSION: No stone seen by KUB
[2021-05-14 07:15] VITALS: BP 113/46; PULSE 83; RESP 17; TEMP 36.6; O2SAT 99; BMI 35.9
[2021-05-14 07:24] LABS: Glucose, Whole Blood 146 mg/dL (60-115)
[2021-05-14] MEDS: Acetaminophen 325 MG TABLET 650 MG PO (07:47)
[2021-05-14] MEDS: Lactated Ringers 1,000 ML 100 ML IVCONT (07:48)
--- NOTE | 2021-05-14 08:51 | MHC.SHP ---
Pre-Procedural Eval Section A Date of Service: 05/14/21 Section B Chief Complaint: kidney stone Details of Present Illness: right 8mm renal pole stone Relevant Family History (Specify if Yes): No Relevant Social History: None Present Medications: see Short Stay Collaborative assessment Medical History: Significant History History of Previous Operations: Relevant previous surgery/procedure and date(s) Allergies: Allergies Allergy/AdvReac Type Severity Reaction Status Date / Time No Known Allergies Allergy Verified 04/03/21 09:10 Review of Systems Sugical H&P ROS: Negative: Constitution, Cardiovascular, Respiratory, Neurological, Psychiatric, Hem-Onc, Allergic/Immunologic, Gastrointestinal, Genitourinary, Musculoskeletal, Integumentary, Endocrine and Eyes/Ears/Nose/Throat Exam Surgical H&P Exam: Normal: HEENT, Normal: Heart, Normal: Lungs, Normal: Extremities, Normal: Abdomen, Normal: Skin and Normal: Neurological Plan Diagnosis/Plan: Unchanged (Right renal stones midpole ESWL) I have reviewed the history and physical and performed a pertinent physical examination on my patient. No changes have occurred unless specified.
--- NOTE | 2021-05-14 09:48 | W.PM.OPN ---
Operative Note Operative Note Date of Service: 05/14/21 Narrative: PreOperative Diagnosis: Right Renal stones Post Operative Diagnosis: Right Renal stones Procedure: Right ESWL Surgeon: Dr Sylvester Thompson Anesthesia: mac/sedation Indications for procedure: The patient understands ESWL may be a staged procedure and subsequent intervention may be required based on imaging after ESWL. They also understand there is a risk of bleeding to the kidney, infection, damage to adjacent organs, and stone migration following the procedure. - right 8 mm mid pole Procedure: After informed consent was verified the patient was brought to the operating room and placed in a supine position. Anesthesia was performed per protocol. Safety pause time-out was performed. Imaging was displayed in the room and laterality confirmed. ESWL was performed. The 1st 500 shocks were performed at 60 hertz. These were performed with increasing power. Once maximum power was reached the rate was increased to 180 hertz. A total of 2500 shocks were given. Targetted imaging with ultrasound/fluoroscopy showed stone smudging suggestive of disintegration. The patient tolerated the procedure well and was transferred to the recovery area upon completion. Post procedure imaging will be organized. There was no evidence for flank discoloration.
[2021-05-14 10:00] VITALS: BP 136/65; PULSE 77; RESP 12; TEMP 36.9; O2SAT 98
[2021-05-14 10:15] VITALS: BP 117/52; PULSE 72; RESP 17; TEMP 36.9; O2SAT 98
== END 2021-05-14 10:45 | disposition home or self-care (01) ==
PROVIDERS: PCP Internal Medicine; Visit Provider Urology
PROC: (CPT 50590; principal; 2021-05-14 08:50)
DX: N20.0 Calculus of kidney (principal); Z87.442 Personal history of urinary calculi; G89.29 Other chronic pain; M47.816 Spondylosis without myelopathy or radiculopathy, lumbar region; M10.9 Gout, unspecified; G90.523 Complex regional pain syndrome I of lower limb, bilateral; I10 Essential (primary) hypertension; E13.9 Other specified diabetes mellitus without complications; E11.42 Type 2 diabetes mellitus with diabetic polyneuropathy; F33.9 Major depressive disorder, recurrent, unspecified; Z79.4 Long term (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; Z79.899 Other long term (current) drug therapy
CPT/HCPCS: 50590; 74018; 82947; J1100; J2250; J2405; J3010

== ENCOUNTER 2021-06-02 14:23 | Outpatient (REF) | payer OTHER, SELFPAY ==
--- NOTE | ~2021-06-02 | US_ITS ---
EXAMINATION: US RETROPERITONEAL LIMITED (RENAL ONLY) CLINICAL INFORMATION: Calculus of kidney. COMPARISON: KUB dated 05/14/2021. Bilateral renal ultrasound dated 03/31/2021. CT abdomen and pelvis without contrast dated 03/22/2021. Ultrasound abdomen complete dated 12/10/2011. TECHNIQUE: Real-time imaging of the kidneys. FINDINGS: RIGHT KIDNEY: 12.1 x 8.4 x 7.3 cm (SAG x AP x TRV). The kidney is normal in size, contour, and echogenicity. Renal cortical thickness is normal. Previously visualized midpole calculi is not seen at this time. No hydronephrosis. There is a large pericapsular hematoma measuring 7.5 x 3.2 cm. LEFT KIDNEY: 11.5 x 5.5 x 6.7 cm (SAG x AP x TRV). The kidney is normal in size, contour, and echogenicity. Renal cortical thickness is normal. No calculi or focal parenchymal lesions. No hydronephrosis. US/US renal BI IMPRESSION: 1. Large right capsular hematoma. There is mild mass effect on the kidney. 2. Otherwise both kidneys are unremarkable.
== END 2021-06-02 14:24 | disposition home or self-care (01) ==
LOC: HO.HMGCX 14:23
PROVIDERS: PCP Internal Medicine; Visit Provider Urology
DX: N20.0 Calculus of kidney (principal)
CPT/HCPCS: 76775

== ENCOUNTER → 2021-06-06 13:01 | Outpatient (BNVA) | payer OTHER, SELFPAY | PROVIDERS: PCP Internal Medicine; Visit Provider Urology | DX: N20.0 Calculus of kidney (principal); R82.991 Hypocitraturia | CPT/HCPCS: 99212 ==

== ENCOUNTER → 2021-06-09 16:58 | Outpatient (BNVA) | payer OTHER, SELFPAY | PROVIDERS: PCP Internal Medicine; Visit Provider Anesthesiology ==

== ENCOUNTER 2021-08-19 09:54 | Outpatient (REF) | payer OTHER, SELFPAY ==
[2021-08-19 11:56] LABS: Alanine Aminotransferase 23 U/L (0-40); Albumin Level 4.4 g/dL (3.5-5.0); Alkaline Phosphatase 97 U/L (39-117); Anion Gap 16 (12-20); Aspartate Amino Transferase 22 U/L (5-37); Bilirubin Total 0.5 mg/dL (0.0-1.0); Blood Urea Nitrogen 25 mg/dL (9-16); Calcium 9.7 mg/dL (8.4-10.2); Carbon Dioxide 26 mmol/L (22-29); Chloride 101 mmol/L (96-108); Cholesterol 103 mg/dL; Estimated Glomerular Filt Rate 41; Glucose Fasting 217 mg/dL (60-99); HDL Cholesterol 39 mg/dL; LDL Cholesterol Calculated 41 mg/dl; Potassium 4.5 mmol/L (3.3-5.1); Sodium 138 mmol/L (135-145); Total Protein 7.5 g/dL (6.5-8.0); Triglycerides 119 mg/dL
[2021-08-19 11:59] LABS: Estimated Average Glucose 134 mg/dL; Hemoglobin A1c % 6.3 %
[2021-08-19 12:35] LABS: Creatinine Urine 117.03 mg/dL; Microalbumin Urine < 5.0 mg/L
== END 2021-08-19 09:55 | disposition home or self-care (01) ==
LOC: HO.HMGCLDS 09:54
PROVIDERS: PCP Internal Medicine; Visit Provider Urology
DX: E11.65 Type 2 diabetes mellitus with hyperglycemia (principal); E11.42 Type 2 diabetes mellitus with diabetic polyneuropathy; I10 Essential (primary) hypertension; N20.0 Calculus of kidney; E78.9 Disorder of lipoprotein metabolism, unspecified; F33.9 Major depressive disorder, recurrent, unspecified; R79.89 Other specified abnormal findings of blood chemistry; Z79.4 Long term (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
CPT/HCPCS: 36415; 80053; 80061; 82043; 83036

== ENCOUNTER → 2021-09-04 12:58 | Outpatient (BNVA) | payer OTHER, SELFPAY | PROVIDERS: PCP Internal Medicine; Visit Provider Psychiatry & Neurology Neurology | DX: G47.33 Obstructive sleep apnea (adult) (pediatric) (principal); G25.81 Restless legs syndrome | CPT/HCPCS: 99202 ==

== ENCOUNTER 2021-10-07 09:07 | Outpatient (REF) | payer OTHER, SELFPAY ==
[2021-10-07 11:47] LABS: Anion Gap 14 (12-20); Carbon Dioxide 26 mmol/L (22-29); Chloride 105 mmol/L (96-108); Potassium 4.6 mmol/L (3.3-5.1); Sodium 140 mmol/L (135-145)
[2021-10-07 11:52] LABS: Anion Gap 14 (12-20); Blood Urea Nitrogen 25 mg/dL (9-16); Carbon Dioxide 26 mmol/L (22-29); Chloride 104 mmol/L (96-108); Estimated Glomerular Filt Rate 42; Potassium 4.6 mmol/L (3.3-5.1); Sodium 139 mmol/L (135-145)
== END 2021-10-07 09:08 | disposition home or self-care (01) ==
LOC: HO.HMGCLDS 09:07
PROVIDERS: Urology; Visit Provider Internal Medicine
DX: N20.0 Calculus of kidney (principal); R79.89 Other specified abnormal findings of blood chemistry
CPT/HCPCS: 36415; 80051; 82565; 84520

== ENCOUNTER 2021-10-23 14:25 | Outpatient (REF) | payer OTHER, SELFPAY ==
--- NOTE | ~2021-10-23 | US_ITS ---
EXAMINATION: US RETROPERITONEAL LIMITED (RENAL ONLY) CLINICAL INFORMATION: Calculus of kidney. COMPARISON: US retroperitoneal limited (renal only) 06/02/2021 and 03/31/2021. XR abdomen KUB 05/14/2021. CT abdomen and pelvis 03/22/2021. TECHNIQUE: Real-time imaging of the kidneys. FINDINGS: RIGHT KIDNEY: 11.4 x 4.94 x 5.65 cm (SAG x AP x TRV). The kidney is normal in size, contour, and echogenicity. Renal cortical thickness is normal. No renal calculi or hydronephrosis. There is a midpole simple cyst measuring 1 cm. No follow-up imaging recommended. LEFT KIDNEY: 11.5 x 6.52 x 5.23 cm (SAG x AP x TRV). The kidney is normal in size, contour, and echogenicity. Renal cortical thickness is normal. No calculi or focal parenchymal lesions. No hydronephrosis. US/US renal BI IMPRESSION: No calculi visualized. No hydronephrosis.
== END 2021-10-23 14:26 | disposition home or self-care (01) ==
LOC: HO.HMGCX 14:25
PROVIDERS: PCP Internal Medicine; Visit Provider Urology
DX: N20.0 Calculus of kidney (principal)
CPT/HCPCS: 76775

== ENCOUNTER → 2021-10-27 15:46 | Outpatient (REF) | payer OTHER, SELFPAY | LOC: HO.SL 15:46 | PROVIDERS: PCP Internal Medicine; Visit Provider Psychiatry & Neurology Neurology | DX: G47.33 Obstructive sleep apnea (adult) (pediatric) (principal) | CPT/HCPCS: 95806 ==

== ENCOUNTER → 2021-11-03 12:55 | Outpatient (BNVA) | payer OTHER, SELFPAY | PROVIDERS: PCP Internal Medicine; Visit Provider Nurse Practitioner Family | DX: G47.33 Obstructive sleep apnea (adult) (pediatric) (principal) | CPT/HCPCS: 99212 ==

== ENCOUNTER → 2021-12-16 14:29 | Outpatient (BNVA) | payer OTHER, SELFPAY | PROVIDERS: PCP Internal Medicine; Visit Provider Urology | DX: R82.991 Hypocitraturia (principal); Z87.442 Personal history of urinary calculi | CPT/HCPCS: 99212 ==

== ENCOUNTER 2021-12-25 11:39 | Outpatient (REF) | payer OTHER, SELFPAY ==
[2021-12-25 13:50] LABS: Hematocrit 41.9 % (42.0-52.0); Hemoglobin 14.7 g/dl (14.0-18.0); Mean Corpuscular HGB Conc 35.1 g/dl (31.0-36.0); Mean Corpuscular Hemoglobin 30.9 pg (27.0-33.0); Mean Corpuscular Volume 88.2 fL (80.0-98.0); Platelet Count 195 X10*3/uL (160-400); Red Blood Count 4.75 X10*6/uL (4.60-5.80); Red Cell Distribution Width 12.8 % (11.0-16.0); White Blood Count 4.3 X10*3/uL (4.8-10.8)
[2021-12-25 14:05] LABS: Alanine Aminotransferase 21 U/L (0-40); Albumin Level 4.4 g/dL (3.5-5.0); Alkaline Phosphatase 99 U/L (39-117); Anion Gap 11 (12-20); Aspartate Amino Transferase 19 U/L (5-37); Bilirubin Total 0.6 mg/dL (0.0-1.0); Blood Urea Nitrogen 33 mg/dL (9-16); Calcium 9.2 mg/dL (8.4-10.2); Carbon Dioxide 27 mmol/L (22-29); Chloride 104 mmol/L (96-108); Estimated Glomerular Filt Rate 43; Glucose Random 183 mg/dL (60-115); Potassium 4.2 mmol/L (3.3-5.1); Sodium 138 mmol/L (135-145); Total Protein 7.1 g/dL (6.5-8.0)
[2021-12-25 14:49] LABS: Creatinine Urine 142.66 mg/dL; Total Protein Urine Random < 7 mg/dL (<12)
[2021-12-26 12:02] LABS: Calcium (PTHI) 9.6 mg/dL (8.6-10.3); PTHI 64 pg/mL (16-77)
== END 2021-12-25 11:40 | disposition home or self-care (01) ==
LOC: HO.HMGCLDS 11:39
PROVIDERS: Visit Provider Internal Medicine Hypertension Specialist
DX: N18.31 Chronic kidney disease, stage 3a (principal)
CPT/HCPCS: 36415; 80053; 83970; 84156; 85027

== ENCOUNTER 2022-02-09 16:20 | Outpatient (REF) | payer OTHER, SELFPAY ==
--- NOTE | ~2022-02-09 | US_ITS ---
EXAMINATION: US RETROPERITONEAL LIMITED (RENAL ONLY) CLINICAL INFORMATION: Calculus of kidney. COMPARISON: Renal ultrasound 10/23/2021 and 06/02/2021. X-ray abdomen KUB 05/14/2021. CT abdomen and pelvis 03/22/2021. TECHNIQUE: Real-time imaging of the kidneys. FINDINGS: RIGHT KIDNEY: 12.3 x 5.9 x 6.1 cm (SAG x AP x TRV). The kidney is normal in size, contour, and echogenicity. Renal cortical thickness is normal. There is a 7 mm echogenic density in the mid to lower pole with twinkle artifact questionable for a stone. There is question of a 1 x 1.2 cm cyst in the mid to lower pole. No hydronephrosis. LEFT KIDNEY: 12.3 x 6.8 x 4.7 cm (SAG x AP x TRV). The kidney is normal in size, contour, and echogenicity. Renal cortical thickness is normal. No calculi or focal parenchymal lesions. No hydronephrosis. US/US renal BI IMPRESSION: Question right renal stone and small cyst.
== END 2022-02-09 16:21 | disposition home or self-care (01) ==
LOC: HO.US 16:20
PROVIDERS: Visit Provider Internal Medicine Hypertension Specialist
DX: N20.0 Calculus of kidney (principal); N18.31 Chronic kidney disease, stage 3a
CPT/HCPCS: 76775

== ENCOUNTER → 2022-02-17 13:51 | Outpatient (BNVA) | payer OTHER, SELFPAY | PROVIDERS: PCP Internal Medicine; Visit Provider Internal Medicine | DX: L03.818 Cellulitis of other sites (principal) | CPT/HCPCS: 99212 ==

== ENCOUNTER 2022-05-01 08:27 | Outpatient (REF) | payer OTHER, SELFPAY ==
[2022-05-01 11:43] LABS: Hematocrit 41.4 % (42.0-52.0); Hemoglobin 14.2 g/dl (14.0-18.0); Mean Corpuscular HGB Conc 34.3 g/dl (31.0-36.0); Mean Corpuscular Hemoglobin 31.1 pg (27.0-33.0); Mean Corpuscular Volume 90.6 fL (80.0-98.0); Mean Platelet Volume 11.4 fL (9.4-12.4); Platelet Count 183 X10*3/uL (160-400); Red Blood Count 4.57 X10*6/uL (4.60-5.80); White Blood Count 6.5 X10*3/uL (4.8-10.8)
[2022-05-01 12:27] LABS: Anion Gap 18 (12-20); Blood Urea Nitrogen 30 mg/dL (9-16); Calcium 9.8 mg/dL (8.4-10.2); Carbon Dioxide 25 mmol/L (22-29); Chloride 102 mmol/L (96-108); Estimated Glomerular Filt Rate 41; Glucose Random 124 mg/dL (60-115); Potassium 4.5 mmol/L (3.3-5.1); Sodium 140 mmol/L (135-145)
== END 2022-05-01 08:28 | disposition home or self-care (01) ==
LOC: HO.HMGCLDS 08:27
PROVIDERS: PCP Internal Medicine; Visit Provider Internal Medicine Hypertension Specialist
DX: N18.31 Chronic kidney disease, stage 3a (principal)
CPT/HCPCS: 36415; 80048; 85027

== ENCOUNTER → 2022-07-16 10:13 | Outpatient (BNVA) | payer OTHER, SELFPAY | PROVIDERS: PCP Internal Medicine; Visit Provider Anesthesiology | DX: Z76.0 Encounter for issue of repeat prescription (principal); G89.4 Chronic pain syndrome; G90.523 Complex regional pain syndrome I of lower limb, bilateral; G25.81 Restless legs syndrome; M16.9 Osteoarthritis of hip, unspecified; M47.816 Spondylosis without myelopathy or radiculopathy, lumbar region; N20.0 Calculus of kidney; E10.42 Type 1 diabetes mellitus with diabetic polyneuropathy; F33.9 Major depressive disorder, recurrent, unspecified; Z79.4 Long term (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 | CPT/HCPCS: 99212 ==

== ENCOUNTER → 2022-08-04 11:16 | Outpatient (BNVA) | payer OTHER, SELFPAY | PROVIDERS: PCP Internal Medicine; Visit Provider Nurse Practitioner Family | DX: G47.33 Obstructive sleep apnea (adult) (pediatric) (principal) | CPT/HCPCS: 99212 ==

== ENCOUNTER → 2022-08-19 14:19 | Outpatient (BNVA) | payer OTHER, SELFPAY | PROVIDERS: PCP Internal Medicine; Visit Provider Anesthesiology | DX: M47.816 Spondylosis without myelopathy or radiculopathy, lumbar region (principal); M16.9 Osteoarthritis of hip, unspecified; E11.65 Type 2 diabetes mellitus with hyperglycemia; E11.42 Type 2 diabetes mellitus with diabetic polyneuropathy; G90.523 Complex regional pain syndrome I of lower limb, bilateral | CPT/HCPCS: 99212 ==

== ENCOUNTER 2022-10-09 07:28 | Day surgery (SDC) | payer OTHER, SELFPAY ==
[2022-10-07 14:35] VITALS: BMI 37.2
--- NOTE | 2022-10-08 12:10 | HO.ANESPROP2 ---
Documented by User: Nidia Ortiz NP 10/08/22 13:20 HPI - Anesthesia Eval Consult details Narrative: 57yo M for Right Peripheral Nerve Stimulator Trial CKD Stage 3 - last seen by nephro 07/2022 - stable with baseline creat 1.3-1.7 PMFSH Active Problems Active Problems: All Active Problems (Updated 12/16/21 @ 15:02 by Sylvester Thompson MD) Cellulitis (Acute) Gout (Acute) Dermatitis (Acute) Sacroiliac joint pain (Acute) Renal colic (Acute) GÉNESIS (acute kidney injury) (Acute) Nephrolithiasis (Acute) Obesity due to excess calories (Acute) Hypocitraturia (Acute) Elevated serum creatinine (Acute) Restless legs syndrome (RLS) (Acute) Obstructive sleep apnea (Acute) Chronic pain syndrome (Acute) Depression, major, recurrent (Acute) Lipid disorder (Acute) 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, essential (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) Diabetes 1.5, managed as type 1 (Acute) Complex regional pain syndrome of both lower extremities (Acute) Diabetic peripheral neuropathy (Acute) Spondylosis of lumbar region without myelopathy or radiculopathy (Acute) Past Medical History Medical History (Updated 10/15/22 @ 14:59 by Ye Najera MD) Chronic pain syndrome Complex regional pain syndrome of both lower extremities Depression, major, recurrent Diabetes 1.5, managed as type 1 Diabetic peripheral neuropathy Fatty liver Gout 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, essential Kidney stones 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 Obstructive sleep apnea Restless legs syndrome (RLS) Spondylosis of lumbar region without myelopathy or radiculopathy Ureteral calculus Family History Family History Other Mental health disorder Family history of problems with anesthesia: No Surgical History Surgical History (Updated 10/07/22 @ 06:39 by Minda Wolff RN) Hx of colonoscopy Hx of lithotripsy Social History Social History Housing: Condominium Alcohol intake: never Patient Tobacco Use Status: Never used Tobacco Second Hand Smoke Exposure: No Current occupational status: disabled Cognitive needs: No Hearing needs: No Vision needs: Yes Meds Allergies Allergy/AdvReac Type Severity Reaction Status Date / Time No Known Allergies Allergy Verified 10/19/22 09:27 Home Medications Medication Instructions Recorded Confirmed Last Taken Type bupropion HCl 300 mg 24 hr tablet, 300 mg PO QAM 04/17/20 10/19/22 10/09/22 History extended release duloxetine 60 mg capsule,delayed 60 mg PO BEDTIME 06/19/20 10/19/22 Unknown History release aripiprazole 5 mg tablet 5 mg PO DAILY 10/16/20 10/19/22 Unknown History trazodone 50 mg tablet 100 mg PO BEDTIME 02/07/21 10/19/22 Unknown History Exam Exam Date and Time: October 08, 2022 1210 Height,Weight and Vital Signs: Height 6 ft 4 in Weight 138.799 kg Assessment and Plan Final Anesthetic Review Family History of Problems with Anesthesia: No Documented by User: Naren Marx MD 10/29/22 17:00 HPI - Anesthesia Eval Consult details Narrative: 57yo M for Right Peripheral Nerve Stimulator Trial no chest pain , functinal status greater than 4 mets KRISTIN , uses CPAP on penicillin for recurrent LLE celulitis CKD Stage 3 - last seen by nephro 07/2022 - stable with baseline creat 1.3-1.7 PMFSH Past Medical History Medical History (Updated 10/15/22 @ 14:59 by Ye Najera MD) Chronic pain syndrome Complex regional pain syndrome of both lower extremities Depression, major, recurrent Diabetes 1.5, managed as type 1 Diabetic peripheral neuropathy Fatty liver Gout 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, essential Kidney stones Lipid disorder 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 Obstructive sleep apnea Restless legs syndrome (RLS) Spondylosis of lumbar region without myelopathy or radiculopathy Ureteral calculus Family History Family History Other Mental health disorder Surgical History Surgical History (Updated 10/07/22 @ 06:39 by Minda Wolff RN) Hx of colonoscopy Hx of lithotripsy History of Problems with Anesthesia: No Social History Social History Housing: Condominium Alcohol intake: never Patient Tobacco Use Status: Never used Tobacco Second Hand Smoke Exposure: No Current occupational status: disabled Cognitive needs: No Hearing needs: No Vision needs: Yes Meds Allergies Allergy/AdvReac Type Severity Reaction Status Date / Time No Known Allergies Allergy Verified 10/19/22 09:27 Home Medications Medication Instructions Recorded Confirmed Last Taken Type bupropion HCl 300 mg 24 hr tablet, 300 mg PO QAM 04/17/20 10/19/22 10/09/22 History extended release duloxetine 60 mg capsule,delayed 60 mg PO BEDTIME 06/19/20 10/19/22 Unknown History release aripiprazole 5 mg tablet 5 mg PO DAILY 10/16/20 10/19/22 Unknown History trazodone 50 mg tablet 100 mg PO BEDTIME 02/07/21 10/19/22 Unknown History Exam Airway Mallampati Class: III TM Dist: >3cm Neck ROM: Full Loose/Missing/Broken Teeth: Yes Assessment and Plan Assessment Anesthesia Assessment: Anesthesia Plan Discussed and Chart Reviewed Final Anesthetic Review History of Problems with Anesthesia: No NPO: Yes ASA Class: III Final Preanesthetic Review: Meds/Allgs Chart Reviewed, Consent Obtained/Reviewed and Anes Risks/Benef Reviewed Patient Risk: Intermediate Procedure Risk: Intermediate Anesthetic Plan Anesthetic Plan: GA and Agree w/ Assess. and Plan Disposition: Standard PACU
[2022-10-09] VITALS (8 sets, daily range): BP systolic 82–136; BP diastolic 46–92; PULSE 52–80; RESP 16–18; TEMP 36.1–36.6; O2SAT 94–100; BMI 36.5
--- NOTE | ~2022-10-09 | FL_ITS ---
EXAMINATION: XR FLUOROSCOPY WITH IMAGES CLINICAL INFORMATION: Right sacroiliac joint stimulator trial. COMPARISON: 03/04/2021 TECHNIQUE: Fluoroscopy Supervised By: Dr. Ye Najera. Fluoroscopy Time: 0.2 minutes. Cumulative Dose: 6.97 mGy-cm DAP: 1.89 Gy-cm2 Images: 2. FINDINGS: Stimulator wire is seen adjacent to the right sacroiliac joint. FL/FL guidance in OR IMPRESSION: Intraoperative fluoroscopy for pain management procedure.
[2022-10-09 08:01] LABS: Hematocrit 41.6 % (42.0-52.0); Hemoglobin 14.3 g/dl (14.0-18.0); Mean Corpuscular HGB Conc 34.4 g/dl (31.0-36.0); Mean Corpuscular Hemoglobin 30.8 pg (27.0-33.0); Mean Corpuscular Volume 89.7 fL (80.0-98.0); Mean Platelet Volume 10.5 fL (9.4-12.4); Platelet Count 172 X10*3/uL (160-400); Red Blood Count 4.64 X10*6/uL (4.60-5.80); Red Cell Distribution Width 13.2 % (11.0-16.0); White Blood Count 4.2 X10*3/uL (4.8-10.8)
[2022-10-09 08:08] LABS: Glucose, Whole Blood 117 mg/dL (60-115)
[2022-10-09 08:16] LABS: Anion Gap 10 (12-20); Blood Urea Nitrogen 27 mg/dL (9-16); Calcium 9.4 mg/dL (8.4-10.2); Carbon Dioxide 30 mmol/L (22-29); Chloride 106 mmol/L (96-108); Estimated Glomerular Filt Rate 38; Glucose Fasting 126 mg/dL (60-99); Potassium 4.7 mmol/L (3.3-5.1); Sodium 141 mmol/L (135-145)
[2022-10-09] MEDS: Lactated Ringers 1,000 ML 100 ML IVCONT (08:16)
--- NOTE | 2022-10-09 10:08 | P.HPSUR_ITS ---
Pre-Procedural Eval Section A Date of Service: 10/09/22 The patient is an INPATIENT: No Changes since office visit: Yes Patient answered all questions The History & Physical has been completed within 30 days and I have reviewed it.: No Section B Chief Complaint: Sacroiliitis,Sacrococcygeal disorders, Details of Present Illness: as above Relevant Family History (Specify if Yes): No Relevant Social History: None Present Medications: see Short Stay Collaborative assessment Medical History: No relevant PMH History of Previous Operations: Relevant previous surgery/procedure and date(s) Allergies: Allergies Allergy/AdvReac Type Severity Reaction Status Date / Time No Known Allergies Allergy Verified 08/19/22 14:34 Review of Systems Sugical H&P ROS: Negative: Cardiovascular, Respiratory, Neurological, Psychiatric, Hem-Onc, Allergic/Immunologic, Gastrointestinal, Integumentary and Eyes/Ears/Nose/Throat and Yes, Specify: Constitution (morbid obesity), Genito urinary (mild to moderate CRI), Musculoskeletal (sacroiliitis) and Endocrine (DM type 2) Exam Surgical H&P Exam: Normal: HEENT, Normal: Heart, Normal: Lungs, Normal: Extremities, Normal: Skin and Normal: Neurological and Significant Findings: Abdomen (enlarged due to i/a and s/q fat) Plan Diagnosis/Plan: Unchanged I have reviewed the history and physical and performed a pertinent physical examination on my patient. No changes have occurred unless specified. Time Spent With Patient Time: Total time managing care of this patient today ____ minutes.
--- NOTE | 2022-10-09 11:24 | P.BOP_ITS ---
Brief Operative Note Date of Service: 10/09/22 Pre-op diagnosis: sacroiliitis right SI joint pain Post-op diagnosis: same Procedure: SI joint innervation stimulation Curonics trial. Surgeon: eY Najera MD Anesthesia: GLMA Was an Automotive Salesperson used for this Procedure?: No Estimated blood loss (mL): 0 Condition: stable Disposition: PACU
--- NOTE | 2022-10-09 11:26 | W.PM.OPN ---
Operative Note Operative Note Date of Service: 10/09/22 Narrative: Trial of the sacroiliac joint innervation stimulation stim wave right Informed consent was thoroughly explained to the patient before moving him to the operating room.? Risks and benefits were explained and all the questions were answered. Patient ? was taken to the operating room, he was positioned prone on the operating table with the pillow under her pelvis.? [employer] monitors were applied and GLMA was induced. Time out was performed delineated correct name and of the patient, site, side and nature of the procedure, risks of DVT and fire, need for antibiotics. he received 3 g of cefazolin approximately 15 minutes before the onset of the procedure. lower back and buttocks was prepped with ChloraPrep twice, and draped with sterile towels.? Sterilely draped C-arm was brought over the operating field and sq picture of patient's pelvis was demonstrated on the screen.? Attention was concentrated on the? Right SI joint. The sacral ala on the? right was chosen as a target of the needles insertion. 3 cm above the sacral ala projection in the lumbar area injection of the local anesthetic was performed in the skin. Using 11 blade scalpel small linnette in the skin was performed. 16 gauge introducer malleable needle? was inserted through the linnette and advanced toward the sacral alae on the right.? After needle met the bone on sacral ala it was redirected slightly posterior and continued to advance alongside the curvature of the sacral bone.? When the tip of the needle reached the end of the projection of the sacroiliac joint inferiorly advancement stops and guitar wire was introduced into the needle.? It went through the needle without difficulties.. ?After that 8 electrode stimulating array lead was inserted through the needle and advanced to the desired position.? The needle was removed and care was taken not to dislodge the lead.? The driving stylet was removed from the lead and it was replaced with stimulating copper wire antenna electrodes.? After that the knot was was tied just below the level of the 2nd antenna ? contact.? 0-0 silk stitchwere applied to the skin to anchor the leads to the skin. Mastisol was applied to the skin a and Steri-Strips was used to fix the stimulating leads to the skin.? Sterile dressing applied, stimulating pad was applied and taped to the skin using Medipore tape. Upon completion of the procedure the patient was awaken she was taken outside of the operating room to recovery room where she recovered uneventfully.
== END 2022-10-09 12:50 | disposition home or self-care (01) ==
PROVIDERS: Nurse Practitioner; PCP Internal Medicine; Visit Provider Anesthesiology
PROC: (CPT 64555; principal; 2022-10-09 09:10)
DX: M46.1 Sacroiliitis, not elsewhere classified (principal); M53.3 Sacrococcygeal disorders, not elsewhere classified; G89.4 Chronic pain syndrome; G90.523 Complex regional pain syndrome I of lower limb, bilateral; M47.816 Spondylosis without myelopathy or radiculopathy, lumbar region; E13.42 Other specified diabetes mellitus with diabetic polyneuropathy; E13.22 Other specified diabetes mellitus with diabetic chronic kidney disease; I12.9 Hypertensive chronic kidney disease with stage 1 through stage 4 chronic kidney disease, or unspecified chronic kidney disease; N18.30 Chronic kidney disease, stage 3 unspecified; K76.0 Fatty (change of) liver, not elsewhere classified; M10.9 Gout, unspecified; G25.81 Restless legs syndrome; F33.9 Major depressive disorder, recurrent, unspecified; G47.33 Obstructive sleep apnea (adult) (pediatric); Z79.4 Long term (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; Z79.899 Other long term (current) drug therapy; Z79.82 Long term (current) use of aspirin; M16.9 Osteoarthritis of hip, unspecified
CPT/HCPCS: 64555; 36415; 80048; 82947; 85027; C1897; J0690; J2250; J2795; J3010

== ENCOUNTER → 2022-10-15 10:19 | Outpatient (BNVA) | payer OTHER, SELFPAY | PROVIDERS: PCP Internal Medicine; Visit Provider Anesthesiology | DX: M16.9 Osteoarthritis of hip, unspecified (principal); M47.816 Spondylosis without myelopathy or radiculopathy, lumbar region; M53.3 Sacrococcygeal disorders, not elsewhere classified; M46.1 Sacroiliitis, not elsewhere classified; E11.65 Type 2 diabetes mellitus with hyperglycemia; E11.42 Type 2 diabetes mellitus with diabetic polyneuropathy; G90.523 Complex regional pain syndrome I of lower limb, bilateral; Z96.89 Presence of other specified functional implants | CPT/HCPCS: 99212 ==

== ENCOUNTER → 2022-10-19 08:47 | Outpatient (BNVA) | payer OTHER, SELFPAY | PROVIDERS: PCP Internal Medicine; Visit Provider Anesthesiology | DX: G90.523 Complex regional pain syndrome I of lower limb, bilateral (principal); M16.9 Osteoarthritis of hip, unspecified; M47.816 Spondylosis without myelopathy or radiculopathy, lumbar region; M53.3 Sacrococcygeal disorders, not elsewhere classified; M46.1 Sacroiliitis, not elsewhere classified; E11.65 Type 2 diabetes mellitus with hyperglycemia; E11.42 Type 2 diabetes mellitus with diabetic polyneuropathy | CPT/HCPCS: 99212 ==

== ENCOUNTER 2022-12-02 08:53 | Outpatient (REF) | payer OTHER, SELFPAY ==
--- NOTE | ~2022-12-02 | US_ITS ---
EXAMINATION: US RETROPERITONEAL LIMITED (RENAL ONLY) CLINICAL INFORMATION: Calculus of kidney. COMPARISON: Renal ultrasound 02/09/2022 and 10/23/2021. TECHNIQUE: Real-time imaging of the kidneys. FINDINGS: RIGHT KIDNEY: 11.5 x 5.6 x 5.7 cm (SAG x AP x TRV). The kidney is normal in size, contour, and echogenicity. Renal cortical thickness is normal. No renal calculi or hydronephrosis. Simple cyst in the midpole measuring 1.1 cm, for which no imaging follow-up is recommended. LEFT KIDNEY: 12.1 x 6.4 x 5.3 cm (SAG x AP x TRV). The kidney is normal in size, contour, and echogenicity. Renal cortical thickness is normal. No calculi or focal parenchymal lesions. No hydronephrosis. US/US renal BI IMPRESSION: No nephrolithiasis or hydronephrosis.
== END 2022-12-02 08:54 | disposition home or self-care (01) ==
LOC: HO.HMGCX 08:53
PROVIDERS: PCP Internal Medicine; Visit Provider Urology
DX: N20.0 Calculus of kidney (principal)
CPT/HCPCS: 76775

== ENCOUNTER 2022-12-18 13:25 | Outpatient (AMB) | payer OTHER, SELFPAY ==
--- NOTE | 2022-12-18 13:50 | A.OFFVIS_ITS ---
Intake Intake Visit Reasons: 1Y US(set) Intake Note: Patient is present for Follow Up Ultrasound Urology Med: None Antibiotic Allergy: None Blood Thinner: Aspirin Allergies No Known Allergies Allergy (Verified 03/11/23 09:23) HPI HPI Comments History of Present Illness Details Adama is a pleasant male. He is seen for the following urologic conditions - nephrolithiasis - hypocitrauria No stones on imaging Encourage fluid intake Twelve month follow-up Nephrolithiasis Recurrent stone former Intervention - 05/18 right ESWL Urinalysis - 05/18 24 hour urine shows good volume with high sodium, low citrate - 12/17 good volume, improved sodium, imp roved citrate, improved pH, does have increased oxalate Imaging - 03/18 CT scan left distal ureter 3 mm s tone, 6 mm stone on right side - 04/17 renal ultrasound right side 6 mm stone - 06/17 renal ultrasound no evidence of stone, hematoma on right side post ESWL - 12/17 renal ultrasound no stones - 12/18 renal ultrasound no stones Therapeutic plan - 12 months with imaging [facility] Medical History Restless legs syndrome (RLS) Obstructive sleep apnea Chronic pain syndrome Ureteral calculus Fatty liver Gout Kidney stones Depression, major, recurrent Lipid disorder 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, 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 Diabetes 1.5, managed as type 1 Complex regional pain syndrome of both lower extremities Diabetic peripheral neuropathy Spondylosis of lumbar region without myelopathy or radiculopathy Surgical History Hx of lithotripsy Hx of colonoscopy Family History Other Mental health disorder Social History Housing: Condominium Alcohol intake: never Patient Tobacco Use Status: Never used Tobacco e-Cigarette/Vaping Use: Never Used Second Hand Smoke Exposure: No Current occupational status: disabled Cognitive needs: No Hearing needs: No Vision needs: Yes Review of Systems Const Denies chills and Denies fever(s) Card Reports no additional complaints and Denies syncope Resp Denies cough GI Denies abdominal pain and Denies heartburn Reports as per HPI and Denies change in libido Neuro Denies syncope Psych Denies change in libido Endo Denies change in libido Physical Exam Const General: cooperative, healthy appearing, comfortable and no acute distress Orientation/consciousness: patient oriented x3 HEENT Face and sinus: Yes normal facial exam Mouth: moist mucous membranes Neck Neck: Yes normal visual inspection, Yes full ROM and Yes trachea midline Chest Chest palpation & inspection: normal inspection of the chest Resp Effort & Inspection: normal respiratory effort, able to speak in complete sentences and no respiratory distress GI Inspection: Yes normal to inspection Back/Spine/Pelvis Cervical Spine: normal cervical lordosis Thoracic/Lumbar Spine: thoracic and lumbar spine normal to inspection Skin General skin exam: no rashes or lesions noted Neuro General: patient oriented x3, gait normal, tone normal and moves all extremities Extrem General: Yes normal to inspection and Yes capillary refill normal Assessment & Plan Assessment & Plan (1) Nephrolithiasis: Code(s): N20.0 - Calculus of kidney Plan 12 month follow-up ultrasound Patient Instructions: Imaging studies, laboratory and physical exam results were discussed and reviewed in detail. No major barriers to patient understanding were identified. An opportunity to ask questions regarding the treatment plan was provided. All questions were answered. The patient expressed understanding and agreement with the above treatment plan. The patient is aware they should contact our office by phone for worsening of their current condition or the appearance of new urologic symptoms. Compliance is encouraged with any medications and followup testing that is ordered. It is a privilege to participate in the urologic care of your patient. If you have any questions or concerns regarding treatment for the above conditions, or other urologic issues, please do not hesitate to contact me. The office telephone contact is [phone]. This note is constructed using voice recognition software. While every effort has been made to ensure accuracy product owner errors may have been included. Yours sincerely, Dr Sylvester Thompson MD, [facility] - Urology Providers of Expert, Compassionate Care for the Genitourinary System Coding Level of Care Code Est Pt Level 3 (96872) Diagnoses Nephrolithiasis N20.0
== END 2022-12-18 14:22 | disposition home or self-care (01) ==
LOC: HO.HUSH 13:25
PROVIDERS: PCP Internal Medicine; Visit Provider Urology
DX: N20.0 Calculus of kidney (principal)
CPT/HCPCS: 99213

== ENCOUNTER → 2022-12-18 13:25 | Outpatient (BNVA) | payer OTHER, SELFPAY | PROVIDERS: PCP Internal Medicine; Visit Provider Urology | DX: N20.0 Calculus of kidney (principal); R82.991 Hypocitraturia; E10.9 Type 1 diabetes mellitus without complications; E10.42 Type 1 diabetes mellitus with diabetic polyneuropathy | CPT/HCPCS: 99212 ==

== ENCOUNTER 2023-01-13 09:49 | Outpatient (REF) | payer OTHER, SELFPAY ==
[2023-01-13 13:01] LABS: MANUAL DIFF FLAG NO
[2023-01-13 13:32] LABS: Basophils Percent Auto 0.7 % (0-2); Eosinophils Absolute Auto 0.2 X10*3/uL (0.0-0.4); Eosinophils Percent Auto 2.5 % (0-4); Hematocrit 42.7 % (42.0-52.0); Imm Gran Abs Auto 0.01 X10*3/uL (0.00-0.03); Imm Gran Pct Auto 0.2 % (0.0-0.4); Mean Corpuscular HGB Conc 35.1 g/dl (31.0-36.0); Mean Corpuscular Hemoglobin 32.4 pg (27.0-33.0); Mean Corpuscular Volume 92.2 fL (80.0-98.0); Mean Platelet Volume 11.4 fL (9.4-12.4); Monocytes Absolute Auto 0.4 X10*3/uL (0.1-1.2); Monocytes Percent Auto 6.4 % (2-11); Neutrophils Absolute Auto 4.4 x10*3/uL (2.0-8.3); Neutrophils Percent Auto 74.2 % (45-73); Platelet Count 202 X10*3/uL (160-400); Red Blood Count 4.63 X10*6/uL (4.60-5.80); Red Cell Distribution Width 13.1 % (11.0-16.0); White Blood Count 5.9 X10*3/uL (4.8-10.8)
[2023-01-13 15:21] LABS: Estimated Average Glucose 100 mg/dL; Hemoglobin A1C 119.3216 umol/L; Hemoglobin A1c % 5.1 %
[2023-01-13 22:02] LABS: Alanine Aminotransferase 30 U/L (0-40); Albumin Level 4.3 g/dL (3.5-5.0); Alkaline Phosphatase 83 U/L (39-117); Anion Gap 15 (12-20); Aspartate Amino Transferase 30 U/L (5-37); Bilirubin Total 0.5 mg/dL (0.0-1.0); Blood Urea Nitrogen 29 mg/dL (9-16); Calcium 9.8 mg/dL (8.4-10.2); Carbon Dioxide 26 mmol/L (22-29); Chloride 104 mmol/L (96-108); Estimated Glomerular Filt Rate 48; Glucose Random 96 mg/dL (60-115); Potassium 4.5 mmol/L (3.3-5.1); Sodium 140 mmol/L (135-145); Total Protein 7.1 g/dL (6.5-8.0)
[2023-01-15 14:17] LABS: LDL Cholesterol Direct 42 mg/dL (<100)
== END 2023-01-13 09:50 | disposition home or self-care (01) ==
LOC: HO.HMGCLDS 09:49
PROVIDERS: PCP Internal Medicine; Visit Provider Internal Medicine
DX: E11.42 Type 2 diabetes mellitus with diabetic polyneuropathy (principal); E66.09 Other obesity due to excess calories; E78.9 Disorder of lipoprotein metabolism, unspecified; F33.9 Major depressive disorder, recurrent, unspecified; I10 Essential (primary) hypertension; R79.89 Other specified abnormal findings of blood chemistry; Z79.4 Long term (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
CPT/HCPCS: 36415; 80053; 83036; 83721; 85025

== ENCOUNTER 2023-01-15 12:10 | Outpatient (AMB) | payer OTHER, SELFPAY ==
--- NOTE | 2023-01-15 12:12 | A.OFFPC_ITS ---
Vital Signs 01/15/23 12:15 Height 6 ft 4 in Weight 304 lb BMI 37.0 BP 110/70 Blood Pressure Location Lt brachial Position Sitting Pulse 90 Pulse Source Pulse Oximeter Pulse Oximetry (%) 97 Oxygen Delivery Method Room Air Intake Visit Reasons: blood sug re fernando Allergies No Known Allergies Allergy (Verified 01/15/23 12:16) Medication List - Last Reconciled 01/15/23 by Gabby Kelly MD allopurinol 300 mg PO DAILY amlodipine 5 mg PO DAILY amlodipine 5 mg PO DAILY aripiprazole 5 mg PO DAILY aripiprazole 10 mg PO DAILY aspirin (Erick Low Dose Aspirin) 81 mg PO DAILY 90 days atorvastatin 20 mg PO DAILY 90 days blood-glucose meter (FreakOut Lite Meter kit) As directed bupropion HCl 300 mg PO QAM cephalexin 1,000 mg (2 x 500 mg) PO Q8H 7 days duloxetine 60 mg PO BEDTIME flash glucose scanning reader (FreakOut Sonido 2 [place]) As directed flash glucose sensor (FreakOut Sonido 2 Sensor kit) As directed furosemide 20 mg PO QAM 90 days gabapentin 800 mg PO TID insulin aspart U-100 7 units (0.07 mL) subcut TID 90 days insulin glargine (Lantus Solostar U-100 Insulin) 50 units (0.5 mL) subcut QPM 90 days lancets (Mirimusyle Lancets) TID PRN losartan 100 mg PO DAILY pen needle, diabetic (AboutTime Pen Needle) As directed penicillin V potassium 250 mg PO BID 90 days pioglitazone 15 mg PO DAILY potassium citrate ER 20 mEq (2 x 10 mEq (1,080 mg)) PO BID 90 days spironolactone 25 mg PO DAILY 90 days tadalafil 5 mg PO DAILY 30 days trazodone 100 mg PO BEDTIME Tobacco use date assessed: 01/15/23 Dental Screening Dental Screen Date: 01/15/23 Did you have a dental visit in the last 12 months?: Yes Did you have a dental problem in the last 6 months where you did not have access to dental care?: No Was dental information given to patient?: No HPI blood sug re fernando HPI Details Patient is 57-year-old gentleman came in today for his regular follow- up Patient says that he feels his sugar has been dropping more frequently he was seen in walk-in clinic for that as well patient is currently on long-acting insulin 50 units in the night and short- acting insulin 7 units before meals 3 times a day.? I am reducing the dose before meals to 3 units daily If he continued to have hypoglycemia he may stop pre meal insulin altogether. He is eating healthy food now and trying to exercise His hemoglobin A1c came back at 5.1 recently Patient is also taking Actos 15 mg Nephropathy: he is seeing Dr Abraham, all his blood pressure medications are through Nephrology office now Patient has also been seeing Urology , for renal calculi, and was started on potassium supplement recently to prevent them Gout is stable patient is on allopurinol 300 mg.? All his psychiatric medications are through Psychiatry. 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 Obstructive sleep apnea Restless legs syndrome (RLS) Spondylosis of lumbar region without myelopathy or radiculopathy Ureteral calculus Surgical History Hx of colonoscopy Hx of lithotripsy Family History Other Mental health disorder Social History Housing: Condominium Alcohol intake: never Patient Tobacco Use Status: Never used Tobacco e-Cigarette/Vaping Use: Never Used Second Hand Smoke Exposure: No Current occupational status: disabled Cognitive needs: No Hearing needs: No Vision needs: Yes Questionnaire Thrive Questionnaire Date Thrive assessed: 10/30/22 AUDIT C Alcohol Use Questionnaire (AUDIT-C) 1. How often do you have a drink containing alcohol?: Never 3. How often do you have six or more drinks on one occasion?: Never Total Score: 0 Score Reviewed/Action Taken: Yes CRISTOBAL-7 AMB Questionnaire CRISTOBAL-7 Date CRISTOBAL - 7 assessed: 10/30/22 Source: Developed by Drs. Ken Padilla, Vandana Magallon, Janusz Barlow and colleagues, with an educational nick from [employer]. Review of Systems Const Denies chills and Denies fever(s) ENT Denies epistaxis and Denies nasal discharge Card Denies chest pain Resp Denies chest congestion, Denies cough and Denies hemoptysis GI Denies diarrhea and Denies nausea Skin/Breast Denies rash Neuro Reports no additional complaints Psych Reports no additional complaints Endo Reports no additional complaints Physical exam (Primary Care) Vital Signs: Last Vital Signs Pulse 90 01/15/23 12:15 BP 110/70 01/15/23 12:15 Pulse Ox 97 01/15/23 12:15 Oxygen Delivery Method Room Air 01/15/23 12:15 BMI result Body Mass Index 37.0 Tobacco/Smoking Status: Tobacco use Status Tobacco use date assessed 01/15/23 01/15/23 12:17 Patient Tobacco Use Status Never used Tobacco 01/15/23 12:14 e-Cigarette/Vaping Use Never Used 01/15/23 12:17 Thrive Assessment: Date of Thrive Assessment Date Thrive assessed 10/30/22 01/15/23 12:14 Const General: cooperative, comfortable and no acute distress Orientation/consciousness: patient oriented x3 HENMT Head: Yes normocephalic Eyes General: appearance normal, both eyes and all related structures Neck Neck: Yes supple Resp Effort & Inspection: normal respiratory effort, no cough and no stridor Cardio Rhythm: regular rhythm Heart sounds: S1 normal heart sound present and S2 normal heart sound present Skin General skin exam: turgor normal Neuro General: patient oriented x3, tone normal and moves all extremities Extrem Right lower extremity: no edema Left lower extremity: no edema Assessment and Plan Assessment & Plan (1) Diabetes 1.5, managed as type 1: Code(s): E13.9 - Other specified diabetes mellitus without complications (2) Diabetic peripheral neuropathy: Code(s): E11.42 - Type 2 diabetes mellitus with diabetic polyneuropathy (3) 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, essential: Code(s): I10 - Essential (primary) hypertension (4) Lipid disorder: Code(s): E78.9 - Disorder of lipoprotein metabolism, unspecified (5) Depression, major, recurrent: Code(s): F33.9 - Major depressive disorder, recurrent, unspecified (6) Obesity due to excess calories: Code(s): E66.09 - Other obesity due to excess calories (7) Nasal congestion: Code(s): R09.81 - Nasal congestion (8) Bilateral leg weakness: Code(s): R29.898 - Other symptoms and signs involving the musculoskeletal system Plan Patient is 57-year-old gentleman came in today for his regular follow-up Patient says that he feels his sugar has been dropping more frequently he was seen in walk-in clinic for that as well patient is currently on long-acting insulin 50 units in the night and short- acting insulin 7 units before meals 3 times a day.? I am reducing the dose before meals to 3 units daily If he continued to have hypoglycemia he may stop pre meal insulin altogether. He is eating healthy food now and trying to exercise, says that he feels weak in his legs and is requesting physical therapy His hemoglobin A1c came back at 5.1 recently Patient is also taking Actos 15 mg Patient also have diabetic neuropathy in his lower extremity Nephropathy: he is seeing Dr Abraham, all his blood pressure medications are through Nephrology office now Patient has also been seeing Urology , for renal calculi, and was started on potassium supplement recently to prevent them Gout is stable patient is on allopurinol 300 mg.? All his psychiatric medications are through Psychiatry. Continue atorvastatin 20 mg for lipid control Pain medication through Pain Management, gabapentin through Pain Management Follow-up 3 months Orders: Orders Comprehensive Met. Panel 2 Months E11.42 - Type 2 diabetes mellitus with diabetic polyneuropathy, E13.9 - Other specified diabetes mellitus without complications, E78.9 - Disorder of lipoprotein metabolism, unspecified, F33.9 - Major depressive disorder, recurrent, unspecified, I10 - Essential (primary) hypertension Hemoglobin A1c 2 Months E11.42 - Type 2 diabetes mellitus with diabetic polyneuropathy, E13.9 - Other specified diabetes mellitus without complications, E78.9 - Disorder of lipoprotein metabolism, unspecified, F33.9 - Major depressive disorder, recurrent, unspecified, I10 - Essential (primary) hypertension PT Evaluation and Treatment Today R29.898 - Other symptoms and signs involving the musculoskeletal system Medications: Discontinued penicillin V potassium Discontinued Reason: Doctor's Order 250 mg PO BID 90 days 180 tabs 3RF cephalexin take OTC probiotics 25 billion cultures in between the doses of the antibiotics. Discontinued Reason: Patient Completed Course 1,000 mg (2 x 500 mg) PO Q8H 7 days 42 caps 0RF Coding Level of Care Code Est Pt Level 4 (42000) Diagnoses Diabetes 1.5, managed as type 1 E13.9 Diabetic peripheral neuropathy E11.42 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, essential I10 Lipid disorder E78.9 Depression, major, recurrent F33.9 Obesity due to excess calories E66.09 Nasal congestion R09.81 Bilateral leg weakness R29.898
[2023-01-15 12:15] VITALS: BP 110/70; PULSE 90; O2SAT 97; BMI 37.0
== END 2023-01-15 13:15 | disposition home or self-care (01) ==
PROVIDERS: PCP Internal Medicine; Visit Provider Internal Medicine
DX: E11.42 Type 2 diabetes mellitus with diabetic polyneuropathy (principal); I10 Essential (primary) hypertension; E66.09 Other obesity due to excess calories; Z68.37 Body mass index [BMI] 37.0-37.9, adult; F33.9 Major depressive disorder, recurrent, unspecified; E78.9 Disorder of lipoprotein metabolism, unspecified; R09.81 Nasal congestion; R29.898 Other symptoms and signs involving the musculoskeletal system
CPT/HCPCS: 99214

== ENCOUNTER 2023-02-15 11:21 | Outpatient (AMB) | payer MEDICARE, MEDICAID, SELFPAY ==
--- NOTE | 2023-02-15 11:26 | A.OFFVIS_ITS ---
Intake Vital Signs 02/15/23 11:31 Height 6 ft 4 in Weight 303 lb BMI 36.9 BP 122/76 Blood Pressure Location Rt brachial Position Sitting Respiration 19 Pulse 84 Pulse Source Pulse Oximeter Pulse Oximetry (%) 95 Oxygen Delivery Method Room Air Intake Visit Reasons: next steps follow up Allergies No Known Allergies Allergy (Verified 02/15/23 11:30) HPI HPI Comments History of Present Illness Details Adama is back in my office to discuss possibility of treatment of his pain with Nevro SCS. He is suffering from spondylosis of the lumbar spine disc degeneration lumbar spine but his main problem is diabetic polyneuropathy of bilateral lower extremities. Nevro SCS is approved for treatment of pain related to diabetic neuropathy. Due to sympathetic blockade it may also improve circulation in bilateral lower extremities. Will schedule this patient for trial after the insurance approval. He was approved by psychological evaluation for the trial of Nevro SCS. trial of Curonics/stim wave on the right sacroiliac joint.? The trial was done on 10/09/2022.? He reports no pain improvement for the pain in the joint.? He reported unpleasant irritating sensation from the stimulation.? Prior: SI joint injection results 3 weeks of pain relieve on diagnostic injection 100%.? I will schedule him for the The pain under right scapula is another problem for this patient.? I told him that this pain can be treated potentially as a myofascial pain syndrome and I can perform once he is here in my office a trigger point injection into this area hopefully it will give him good pain relief.? ?He is under care of urologist and urologist thinks that this pain might be related to his kidney stones.? However the larger stone he has? is on the left side and that he experiences pain only on the right.? He is going for shockwave lithotripsy with this urologist in the future to destroyed the stones.? As of his polyneuropathy it stems out from diabetes.? His hemoglobin A1c is equal to 8. it is certain improvement from number in around 10. however unfortunately it is not good enough to reduce polyneuropathy.? He reports significant bilateral pain as burning sensations pins and needles in bilateral feet in the is distribution of the low socks.? We discussed the situation with peripheral neuropathy.? Explained to him that unless he would decrease his hemoglobin A1c below 6 I would not expect his pain getting better. ?He is suffering from axial lower back pain and peripheral diabetic polyneuropathy.? ? He was complaining on the pain in the lateral hip area, he was sent for hip x- ray which demonstrated almost no pathology normal alignment no cartilage loss. He went for consult with Dr. Rodrigez a neurosurgeon.? There were no indications to do any surgical interventions by Dr. Rodrigez. 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 Obstructive sleep apnea Restless legs syndrome (RLS) Spondylosis of lumbar region without myelopathy or radiculopathy Ureteral calculus Surgical History Hx of colonoscopy Hx of lithotripsy Family History Other Mental health disorder Social History Housing: Condominium Alcohol intake: never Patient Tobacco Use Status: Never used Tobacco e-Cigarette/Vaping Use: Never Used Second Hand Smoke Exposure: No Current occupational status: disabled Cognitive needs: No Hearing needs: No Vision needs: Yes Review of Systems Const All systems reviewed & are unremarkable except as noted in HPI and below Physical Exam Vital Signs: Last Vital Signs Pulse 84 02/15/23 11:31 Resp 19 02/15/23 11:31 BP 122/76 02/15/23 11:31 Pulse Ox 95 02/15/23 11:31 Oxygen Delivery Method Room Air 02/15/23 11:31 BMI result Body Mass Index 36.9 Const General: cooperative and no acute distress Nutritional Appearance: obese Limitations: no limitations HEENT Head: Yes normocephalic Ears: hearing grossly normal bilaterally Neck Neck: Yes full ROM and Yes supple Resp Effort & Inspection: normal respiratory effort and able to speak in complete sentences Back/Spine/Pelvis Other: Darryl test is positive bilaterally, Gaenslen test is positive bilaterally, pelvic compression test is positive on the right, Stinchfield test is positive on the right. Psych Appearance: grossly normal Mental Status: mental status grossly normal Speech and movement: Normal speech and movement present Affect: normal affect Attitude: cooperative Thought process: Normal thought process present Thought content: Normal thought content present Insight: Good insight present (Psych) Judgement: Good judgement present (Psych) Assessment & Plan Assessment & Plan (1) Hip osteoarthritis: Code(s): M16.9 - Osteoarthritis of hip, unspecified (2) Spondylosis of lumbar region without myelopathy or radiculopathy: Code(s): M47.816 - Spondylosis without myelopathy or radiculopathy, lumbar region (3) Diabetes type 2, uncontrolled: Code(s): E11.65 - Type 2 diabetes mellitus with hyperglycemia (4) Diabetic peripheral neuropathy: Code(s): E11.42 - Type 2 diabetes mellitus with diabetic polyneuropathy (5) Complex regional pain syndrome of both lower extremities: Code(s): G90.523 - Complex regional pain syndrome I of lower limb, bilateral (6) Sacroiliac joint pain: Code(s): M53.3 - Sacrococcygeal disorders, not elsewhere classified (7) Sacroiliitis: Code(s): M46.1 - Sacroiliitis, not elsewhere classified Plan PNS Curonix was not very successful to treat the patient's pain. I offered him Nevro SCS. He is suffering from diabetic neuropathy, he is suffering from bilateral Complex regional pain syndrome of the lower extremities, he also has lower back pain secondary to spondylosis of lumbar spine and disc degeneration of lumbar spine. I will schedule him for the procedure of a trial of Nevro SCS as soon as he is approved by insurance for the procedure. After that we will decide whether never SCS is right way to perform permanent implant. Coding Level of Care Code Est Pt Level 4 (45148) Diagnoses Hip osteoarthritis M16.9 Spondylosis of lumbar region without myelopathy or radiculopathy M47.816 Diabetes type 2, uncontrolled E11.65 Diabetic peripheral neuropathy E11.42 Complex regional pain syndrome of both lower extremities G90.523 Sacroiliac joint pain M53.3 Sacroiliitis M46.1
[2023-02-15 11:31] VITALS: BP 122/76; PULSE 84; RESP 19; O2SAT 95; BMI 36.9
== END 2023-02-15 12:05 | disposition home or self-care (01) ==
PROVIDERS: PCP Internal Medicine; Visit Provider Anesthesiology
DX: M16.9 Osteoarthritis of hip, unspecified (principal); M47.816 Spondylosis without myelopathy or radiculopathy, lumbar region; E11.65 Type 2 diabetes mellitus with hyperglycemia; E11.42 Type 2 diabetes mellitus with diabetic polyneuropathy; G90.523 Complex regional pain syndrome I of lower limb, bilateral; M53.3 Sacrococcygeal disorders, not elsewhere classified; M46.1 Sacroiliitis, not elsewhere classified
CPT/HCPCS: 99214

== ENCOUNTER → 2023-02-15 11:21 | Outpatient (BNVA) | payer MEDICARE, MEDICAID, SELFPAY | PROVIDERS: PCP Internal Medicine; Visit Provider Anesthesiology | DX: G89.4 Chronic pain syndrome (principal); M16.11 Unilateral primary osteoarthritis, right hip; M47.816 Spondylosis without myelopathy or radiculopathy, lumbar region; M53.3 Sacrococcygeal disorders, not elsewhere classified; G90.523 Complex regional pain syndrome I of lower limb, bilateral; G25.81 Restless legs syndrome; E10.42 Type 1 diabetes mellitus with diabetic polyneuropathy; E10.65 Type 1 diabetes mellitus with hyperglycemia; Z79.4 Long term (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 | CPT/HCPCS: 99212 ==

== ENCOUNTER 2023-02-17 13:27 | Outpatient (AMB) | payer OTHER, SELFPAY ==
--- NOTE | 2023-02-17 13:27 | MHC.OFFVIS ---
Intake Vital Signs 02/17/23 13:28 Height 6 ft 4 in Weight 309 lb BMI 37.6 BP 114/80 Blood Pressure Location Lt brachial Position Sitting Pulse 93 Pulse Source Pulse Oximeter Pulse Oximetry (%) 96 Intake Visit Reasons: cellulitis 1 year follow up Allergies No Known Allergies Allergy (Verified 02/19/23 14:43) HPI cellulitis 1 year follow up HPI Details He has no complaints. 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 Obstructive sleep apnea Restless legs syndrome (RLS) Spondylosis of lumbar region without myelopathy or radiculopathy Ureteral calculus Surgical History Hx of colonoscopy Hx of lithotripsy Family History Other Mental health disorder Social History Housing: Condominium Alcohol intake: never Patient Tobacco Use Status: Never used Tobacco e-Cigarette/Vaping Use: Never Used Second Hand Smoke Exposure: No Current occupational status: disabled Cognitive needs: No Hearing needs: No Vision needs: Yes Review of Systems Const All systems reviewed & are unremarkable except as noted in HPI and below Physical Exam Vital Signs: Last Vital Signs Pulse 93 02/17/23 13:28 BP 114/80 02/17/23 13:28 Pulse Ox 96 02/17/23 13:28 BMI result Body Mass Index 37.6 Const General: cooperative Orientation/consciousness: patient oriented x3 HEENT Head: Yes normal to inspection Mouth: Normal oral and palatal mucosa present Eyes General: appearance normal, both eyes and all related structures Pupils: Equal, round and reactive pupils present Resp Effort & Inspection: normal respiratory effort Cardio Rate: regular rate Rhythm: regular rhythm GI Palpation (GI): Soft to palpation and nontender General: Yes no CVA tenderness Back/Spine/Pelvis Back: no CVA tenderness Skin General skin exam: no rashes or lesions noted Neuro General: patient oriented x3 Cranial nerves: Yes CN's II-XII intact bilaterally and Yes Equal, round and reactive pupils present Extrem General: Yes normal to inspection Psych Appearance: grossly normal Assessment & Plan Assessment & Plan (1) Cellulitis: Comment: He has not had any cellulitis last year Code(s): L03.90 - Cellulitis, unspecified Qualifiers: Site of cellulitis: other site Qualified Code(s): L03.818 - Cellulitis of other sites Plan: Continue preventive antibiotics. See in one year. Medications: New penicillin V potassium 250 mg PO BID 180 tabs 3RF 90 days Coding Level of Care Code Est Pt Level 3 (89780) Diagnoses Cellulitis L03.818 Site of cellulitis: other site
[2023-02-17 13:28] VITALS: BP 114/80; PULSE 93; O2SAT 96; BMI 37.6
== END 2023-02-17 14:48 | disposition home or self-care (01) ==
LOC: HO.HID 13:27
PROVIDERS: PCP Internal Medicine; Visit Provider Internal Medicine
DX: L03.818 Cellulitis of other sites (principal)
CPT/HCPCS: 99213

== ENCOUNTER → 2023-02-17 13:27 | Outpatient (BNVA) | payer OTHER, SELFPAY | PROVIDERS: PCP Internal Medicine; Visit Provider Internal Medicine ==

== ENCOUNTER 2023-02-19 13:00 | Outpatient (RCR) | payer OTHER, MEDICAID, SELFPAY ==
--- NOTE | 2023-01-27 15:56 | MHC.PT.EP ---
[facility] Office [place] Office [place] Office [address] [place] [address] [phone] F: [phone] F: [phone] F: [phone] F: [phone] Physical Therapy Plan of Care Date of Evaluation: Date of Surgery: n/a Diagnosis: B leg weakness Assessment: Patient is a 57 year old male presenting to PT with complaints of B LE weakness. Pt reports onset of pain began 3-4 months ago due to insidious onset. He presents today with impairments in LE strength, balance, and endurance. Pt's current occupation is disabled, with baseline physical activities including ambulating, stair negotiation, transfers. Pt expresses half-way goal of improving strength, and is motivated to work towards this in PT. Clinical presentation today is most consistent with signs and sx associated with B LE weakness and pt will benefit from skilled PT 2 week x 4 weeks to address the following problems and impairments noted upon evaluation: strength, balance, and endurance. These problems limit the patient with the following functional activities: ambulating, stair negotiation, transfers. The prescribed treatment plan of care is medically necessary. Co-morbidities of CRPS B LE, DM 1.5, peripheral neuropathy, gout, HTN were identified and taken into considerations of plan of care. Pt was educated on HEP, role of PT, prognosis, POC. Frequency and Duration: The patient will be seen 2 x week x 4 weeks Short Term Goals: Pt will demonstrate 5/5 knee MMT strength in 2 weeks. Pt will demonstrate 4/5 hip abd MMT strength in 2 weeks. Pt will demonstrate ability to perform tandem stance x 30 sec ea with min sway in 2 weeks. 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 Pt will demonstrate improved 30 sec chair stand test by 3 STS in 4 weeks for improved LE endurance. Pt will demonstrate ability to ambulate and negotiate stairs with min to no difficulty in 4 weeks for return to PLOF. Treatment Plan: Modalities to reduce pain, spasms and effusion. Manual therapy to restore motion and function. Therapeutic exercise to improve strength and flexibility. Neuromuscular re-education for posture and balance. Therapeutic activities to return to functional activities of daily living. Electronically signed by: Serenity Macias, PT, DPT, ATC Please sign and return to therapist. Thank you for your referral.
--- NOTE | 2023-03-23 13:56 | MHC.PT.DC ---
[facility] [place] Office [place] Office [place] Office [address] [place] [address] [facility] [phone] F: [phone] F: [phone] F: [phone] F: [phone] Physical Therapy Discharge Report Diagnosis: B leg weakness Date of Surgery: n/a Date of Evaluation: 01/27/23 Date of Discharge: 03/23/23 Treatments to Date: 3 Cancellations to Date: 2 No Shows to Date: 0 Discharge Status: Discharge Summary: Pt has not attended skilled PT in >30 days and therefore to be d/c. Electronically signed by: Serenity Macias, PT, DPT, ATC Please sign and return to therapist. Thank you for your referral.
== END 2023-03-23 13:56 | disposition home or self-care (01) ==
LOC: HO.PTCHIC 13:00
PROVIDERS: PCP Internal Medicine; Visit Provider Internal Medicine
DX: R29.898 Other symptoms and signs involving the musculoskeletal system (principal)
CPT/HCPCS: 97110; 97162; 97530

== ENCOUNTER 2023-02-19 14:27 | Outpatient (AMB) | payer OTHER, SELFPAY ==
--- NOTE | 2023-02-19 14:33 | A.OFFVIS_ITS ---
Intake Vital Signs 02/19/23 14:46 Height 6 ft 4 in Weight 309 lb BMI 37.6 BP 106/82 Blood Pressure Location Rt brachial Position Sitting Pulse 92 Pulse Source Pulse Oximeter Pulse Oximetry (%) 97 Oxygen Delivery Method Room Air Intake Visit Reasons: 02/17/23 LVM+LetNew prob-Amnesia -Confirmed Intake Note: Patient presents for evaluation amnesia. Patient states I've been forgetting important things like putting my insulin after meals,also instructions that are to long I can get it in my head and my mobility has decreased a lolt as well. Allergies No Known Allergies Allergy (Verified 02/19/23 14:43) HPI HPI Comments History of Present Illness Details 57 y/o male patient presents with his for follow up of KRISTIN and new concerns of memory loss. Pt's reports that patient is forgetful and it has worsened over the 2 years. He is also confused by long instructions. Pt usually likes to play video games, but is having difficulty playing complex video games lately. Denies difficulty driving or repeating same questions over. states that patient still takes care of all financial stuff and is good at it. Pt has family hx of autism, and thinks that he has autism. He does not care of his basic daily activities, which include checking his blood sugar and insulin injection. Pt's thinks that he has a lack of motivation to do it. Pt's also thinks that patient has been more spaced out since he started get insulin which 2 years ago. The CPAP compliance and therapy response (11/22/22-02/19/23) reviewed. He is on APAP [id number]. The usage days 98% and the average usage hours 9 hrs. The median pressure was 9.4 and the AHI was 4.6/hr. He sleeps a lot, also has been isolated more lately. He fell a couple times at home, his legs gave out. He is doing physical therapy twice a week. [facility] Medical History Chronic pain syndrome Complex regional pain syndrome of both lower extremities Depression, major, recurrent Diabetes 1.5, managed as type 1 Diabetic peripheral neuropathy Fatty liver Gout 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, essential Kidney stones Lipid disorder [facility] (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 Obstructive sleep apnea Restless legs syndrome (RLS) Spondylosis of lumbar region without myelopathy or radiculopathy Ureteral calculus Surgical History Hx of colonoscopy Hx of lithotripsy Family History Other Mental health disorder Social History Housing: Condominium Alcohol intake: never Patient Tobacco Use Status: Never used Tobacco e-Cigarette/Vaping Use: Never Used Second Hand Smoke Exposure: No Current occupational status: disabled Cognitive needs: No Hearing needs: No Vision needs: Yes Review of Systems Const All systems reviewed & are unremarkable except as noted in HPI and below ENT Reports Normal hearing present Neuro Reports Normal hearing present Physical Exam Vital Signs: Last Vital Signs Pulse 92 02/19/23 14:46 BP 106/82 02/19/23 14:46 Pulse Ox 97 02/19/23 14:46 Oxygen Delivery Method Room Air 02/19/23 14:46 BMI result Body Mass Index 37.6 Const General: cooperative and no acute distress Nutritional Appearance: obese Orientation/consciousness: patient oriented x3 Limitations: no limitations HEENT Head: Yes normocephalic Ears: hearing grossly normal bilaterally Neck Neck: Yes full ROM and Yes supple Resp Effort & Inspection: normal respiratory effort and able to speak in complete sentences Neuro General: patient oriented x3, gait normal and moves all extremities Cranial nerves: Yes Bilaterally intact EOM present, Yes Normal facial strength present, Yes Normal hearing present, Yes Ability to bilaterally rotate head present and Yes Ability to bilaterally elevate shoulders present Cognition (Neuro): normal cognition Gait exam (Neuro): Normal gait present Psych Appearance: grossly normal Mental Status: mental status grossly normal Speech and movement: Normal speech and movement present Assessment & Plan Assessment & Plan (1) Fatigue: Code(s): R53.83 - Other fatigue (2) Hypersomnia: Code(s): G47.10 - Hypersomnia, unspecified (3) Forgetfulness: Code(s): R68.89 - Other general symptoms and signs (4) Memory changes: Code(s): R41.3 - Other amnesia (5) Obstructive sleep apnea: Comment: Severe degree of KRISTIN. AHI 47/hr with oxygen jeremiah was 75%. Code(s): G47.33 - Obstructive sleep apnea (adult) (pediatric) Plan Advised patient to undergo brain MRI. Check labs to find out reversible causes for memory loss and fatigue. Refer patient to neuropsychology evaluation. Advised patient to check his blood sugar regularly to prevent hypoglycemia. Continue to use APAP [id number]. Advised patient to engage more social and physical activity. Orders: Orders Vitamin B12 and Folate 02/19/23 E55.9 - Vitamin D deficiency, unspecified, R41.3 - Other amnesia, R68.89 - Other general symptoms and signs Vitamin D 25-OH (D2 and D3) 02/19/23 E55.9 - Vitamin D deficiency, unspecified, R41.3 - Other amnesia, R68.89 - Other general symptoms and signs MR head/brain wo con 02/19/23 R41.3 - Other amnesia, R68.89 - Other general symptoms and signs TSH reflex Free T4 Today G47.10 - Hypersomnia, unspecified, R41.3 - Other amnesia, R53.83 - Other fatigue, R68.89 - Other general symptoms and signs Referrals Neuropsychiatry Referral R41.3 - Other amnesia, R68.89 - Other general symptoms and signs Coding Level of Care Code Est Pt Level 4 (96654) Diagnoses Fatigue R53.83 Hypersomnia G47.10 Forgetfulness R68.89 Memory changes R41.3 Obstructive sleep apnea G47.33
[2023-02-19 14:46] VITALS: BP 106/82; PULSE 92; O2SAT 97; BMI 37.6
== END 2023-02-19 15:25 | disposition home or self-care (01) ==
PROVIDERS: PCP Internal Medicine; Visit Provider Nurse Practitioner Family
DX: R53.83 Other fatigue (principal); G47.10 Hypersomnia, unspecified; R68.89 Other general symptoms and signs; R41.3 Other amnesia; G47.33 Obstructive sleep apnea (adult) (pediatric)
CPT/HCPCS: 99214

== ENCOUNTER → 2023-02-19 14:27 | Outpatient (BNVA) | payer OTHER, SELFPAY | PROVIDERS: PCP Internal Medicine; Visit Provider Nurse Practitioner Family ==

== ENCOUNTER 2023-03-05 06:05 | Day surgery (SDC) | payer MEDICARE, SELFPAY ==
[2023-03-03 08:16] VITALS: BMI 36.9
--- NOTE | 2023-03-04 10:45 | P.CONAN_ITS ---
Documented by User: Nidia Ortiz NP 03/04/23 10:49 HPI - Anesthesia Eval Consult details Narrative: 57yo M for Spinal Cord Stimulation Trial s/p Right Peripheral Nerve Stimulator Trial 09/2022 with GA-LMA 4 Tx for chronic LE cellulitis CKD Stage 3 - last seen by nephro 01/2023 - stable with baseline creat 1.3-1.7 PMFSH Active Problems Active Problems: All Active Problems (Updated 02/22/23 @ 08:50 by Elías Newman CNP) Fatigue (Acute) Hypersomnia (Acute) Vitamin D deficiency (Acute) Forgetfulness (Acute) Memory changes (Acute) Bilateral leg weakness (Acute) Nasal congestion (Acute) Sacroiliitis (Acute) Cellulitis (Acute) Gout (Acute) Dermatitis (Acute) Sacroiliac joint pain (Acute) Renal colic (Acute) GÉNESIS (acute kidney injury) (Acute) Nephrolithiasis (Acute) Obesity due to excess calories (Acute) Hypocitraturia (Acute) Elevated serum creatinine (Acute) Restless legs syndrome (RLS) (Acute) Obstructive sleep apnea (Acute) Chronic pain syndrome (Acute) Depression, major, recurrent (Acute) Lipid disorder (Acute) 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, essential (Acute) residential (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 (Acute) Diabetes 1.5, managed as type 1 (Acute) Complex regional pain syndrome of both lower extremities (Acute) Diabetic peripheral neuropathy (Acute) Spondylosis of lumbar region without myelopathy or radiculopathy (Acute) Past Medical History Medical History Restless legs syndrome (RLS) Obstructive sleep apnea Chronic pain syndrome Ureteral calculus Fatty liver Gout Kidney stones Depression, major, recurrent Lipid disorder 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, 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 Diabetes 1.5, managed as type 1 Complex regional pain syndrome of both lower extremities Diabetic peripheral neuropathy Spondylosis of lumbar region without myelopathy or radiculopathy Family History Family History Other Mental health disorder Family history of problems with anesthesia: No Surgical History Surgical History Hx of lithotripsy Hx of colonoscopy History of Problems with Anesthesia: No Social History [facility] Alcohol intake: never Patient Tobacco Use Status: Never used Tobacco e-Cigarette/Vaping Use: Never Used Second Hand Smoke Exposure: No Use of substances other than those prescribed or required for medical reasons: No Are you DNR?: No Advance Directives: No Advance Directives Information Provided: Yes Current occupational status: disabled Cognitive needs: No Hearing needs: No Vision needs: Yes Meds Allergies Allergy/AdvReac Type Severity Reaction Status Date / Time No Known Allergies Allergy Verified 02/19/23 14:43 Home Medications Medication Instructions Recorded Confirmed Last Taken Type bupropion HCl 300 mg 24 hr tablet, 300 mg PO QAM 04/17/20 03/05/23 03/05/23 History extended release duloxetine 60 mg capsule,delayed 60 mg PO BEDTIME 06/19/20 03/05/23 Unknown History release trazodone 50 mg tablet 100 mg PO BEDTIME 02/07/21 03/05/23 Unknown History amlodipine 5 mg tablet 5 mg PO DAILY 12/18/22 03/05/23 Unknown History Exam Exam Date and Time: March 04, 2023 1045 Height,Weight and Vital Signs: Height 6 ft 4 in Weight 137.439 kg Pertinent Lab Results Pertinent Lab Results: Laboratory Tests 01/13/23 09:53 WBC 5.9 Hgb 15.0 Hct 42.7 Plt Count 202 Sodium 140 Potassium 4.5 Chloride 104 Carbon Dioxide 26 BUN 29 H Creatinine 1.51 H Assessment and Plan Assessment Anesthesia Assessment: Chart Reviewed Final Anesthetic Review Family History of Problems with Anesthesia: No History of Problems with Anesthesia: No Documented by User: Missy Martin MD 03/05/23 08:43 PMFSH Active Problems Active Problems: All Active Problems (Updated 03/05/23 @ 07:25 by Missy Martin MD) Fatigue (Acute) Hypersomnia (Acute) Vitamin D deficiency (Acute) Forgetfulness (Acute) Memory changes (Acute) Bilateral leg weakness (Acute) Nasal congestion (Acute) Sacroiliitis (Acute) Cellulitis (Acute) Gout (Acute) Dermatitis (Acute) Sacroiliac joint pain (Acute) Renal colic (Acute) GÉNESIS (acute kidney injury) (Acute) Nephrolithiasis (Acute) Obesity due to excess calories (Acute) Hypocitraturia (Acute) Elevated serum creatinine (Acute) Restless legs syndrome (RLS) (Acute) Obstructive sleep apnea (Acute). 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 (Acute) Diabetes 1.5, managed as type 1 (Acute) Complex regional pain syndrome of both lower extremities (Acute) Diabetic peripheral neuropathy (Acute) Spondylosis of lumbar region without myelopathy or radiculopathy (Acute) CKD Past Medical History Medical History Restless legs syndrome (RLS) Obstructive sleep apnea Chronic pain syndrome Ureteral calculus Fatty liver Gout Kidney stones Depression, major, recurrent Lipid disorder 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, essential residential (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 Diabetes 1.5, managed as type 1 Complex regional pain syndrome of both lower extremities Diabetic peripheral neuropathy Spondylosis of lumbar region without myelopathy or radiculopathy Family History Family History Other Mental health disorder Surgical History Surgical History Hx of lithotripsy Hx of colonoscopy Social History Social History Housing: Condominium Alcohol intake: never Patient Tobacco Use Status: Never used Tobacco e-Cigarette/Vaping Use: Never Used Second Hand Smoke Exposure: No Use of substances other than those prescribed or required for medical reasons: No Are you DNR?: No Advance Directives: No Advance Directives Information Provided: Yes Current occupational status: disabled Cognitive needs: No Hearing needs: No Vision needs: Yes Meds Allergies Allergy/AdvReac Type Severity Reaction Status Date / Time No Known Allergies Allergy Verified 02/19/23 14:43 Home Medications Medication Instructions Recorded Confirmed Last Taken Type bupropion HCl 300 mg 24 hr tablet, 300 mg PO QAM 04/17/20 03/05/23 03/05/23 History extended release duloxetine 60 mg capsule,delayed 60 mg PO BEDTIME 06/19/20 03/05/23 Unknown History release trazodone 50 mg tablet 100 mg PO BEDTIME 02/07/21 03/05/23 Unknown History amlodipine 5 mg tablet 5 mg PO DAILY 12/18/22 03/05/23 Unknown History Exam Height,Weight and Vital Signs: Height 6 ft 4 in Weight 137.439 kg Vital Signs Temp Pulse Resp BP Pulse Ox O2 Del Method 03/05/23 06:33 96.9 F 78 18 112/71 96 Room Air Pertinent Lab Results Pertinent Lab Results: Laboratory Tests 01/13/23 09:53 WBC 5.9 Hgb 15.0 Hct 42.7 Plt Count 202 Sodium 140 Potassium 4.5 Chloride 104 Carbon Dioxide 26 BUN 29 H Creatinine 1.51 H Lab Results 03/05/23 Range/Units 06:27 POC Glucose 111 (60-115) mg/dL Airway Mallampati Class: II TM Dist: >3cm Neck ROM: Full Loose/Missing/Broken Teeth: No (Cap upper Right intact. Denies broken, loose or missing teeth) Heart: RRR Lungs: CTAB Assessment and Plan Assessment Anesthesia Assessment: Anesthesia Plan Discussed Final Anesthetic Review NPO: Yes ASA Class: III Final Preanesthetic Review: No Changes in Pt Med Stat, Meds/Allgs Chart Reviewed, Consent Obtained/Reviewed and Anes Risks/Benef Reviewed Patient Risk: Intermediate Procedure Risk: Intermediate Assessment/Block/Sedation in SS: Assess/Block/Sedation-SS Anesthetic Plan Anesthetic Plan: GA Disposition: Standard PACU
[2023-03-05] VITALS (7 sets, daily range): BP systolic 112–147; BP diastolic 69–83; PULSE 68–78; RESP 15–18; TEMP 36.1–36.2; O2SAT 96–98; BMI 36.5
--- NOTE | ~2023-03-05 | FL_ITS ---
EXAMINATION: XR FLUOROSCOPY WITH IMAGES CLINICAL INFORMATION: Spinal stimulator trial COMPARISON: None available. TECHNIQUE: Fluoroscopy Supervised By: Dr. Ye Najera. Fluoroscopy Time: 3.9 minutes. Cumulative Dose: 163 mGy. DAP: 44.6 Gycm2. Images: 2. FINDINGS: Spinal stimulator wiring overlies the lower thoracic spine on these images. A appear to span from T8 through T10. FL/FL guidance in OR IMPRESSION: Fluoroscopic guidance for spinal stimulator trial.
[2023-03-05 06:31] LABS: Glucose, Whole Blood 111 mg/dL (60-115)
--- NOTE | 2023-03-05 07:07 | MHC.SHP ---
Pre-Procedural Eval Section A Date of Service: 03/05/23 The patient is an INPATIENT: No Changes since office visit: Yes Patient answered all questions The History & Physical has been completed within 30 days and I have reviewed it.: No Section B Chief Complaint: type 2 debetes,Complex regional pain syndrome I of Details of Present Illness: as above Relevant Family History (Specify if Yes): No Relevant Social History: None Present Medications: None Medical History: Significant History (diabetic neuropathy) History of Previous Operations: No relevant previous surgery Allergies: Allergies Allergy/AdvReac Type Severity Reaction Status Date / Time No Known Allergies Allergy Verified 02/19/23 14:43 Review of Systems Sugical H&P ROS: Negative: Cardiovascular, Respiratory, Neurological, Psychiatric, Hem-Onc, Allergic/Immunologic, Gastrointestinal, Integumentary and Eyes/Ears/Nose/Throat and Yes, Specify: Constitution (morbid obesity), Genitourinary (CRF, EGFR=57), Musculoskeletal (LBP spondylosis lumbar without radiculopathy) and Endocrine (DM , diabetic neuropathy) Exam Surgical H&P Exam: Normal: HEENT, Normal: Heart, Normal: Lungs, Normal: Extremities and Normal: Skin and Significant Findings: Abdomen (enlarged due to i/a and s/q fat) and Significant Findings: Neurological (numbness feet b/l) Plan Diagnosis/Plan: Unchanged I have reviewed the history and physical and performed a pertinent physical examination on my patient. No changes have occurred unless specified. Time Spent With Patient Time: Total time managing care of this patient today ____10 minutes.
[2023-03-05] MEDS: Lactated Ringers 1,000 ML 100 ML IVCONT (07:25)
--- NOTE | 2023-03-05 09:05 | P.BOP_ITS ---
Brief Operative Note Date of Service: 03/05/23 Pre-op diagnosis: diabetic neuropathy Post-op diagnosis: same Procedure: Nevro SCS trial Surgeon: Ye Najera MD Anesthesia: GETA Was an Registered Nurse Surgical Services used for this Procedure?: No Estimated blood loss (mL): 0 Condition: stable Disposition: PACU
--- NOTE | 2023-03-05 09:06 | P.OP_ITS ---
Operative Note Operative Note Date of Service: 03/05/23 Narrative: Adama is very pleasant 57 y.o. male who came to the operating room for trial of spinal cord stimulator Nevro for the treatment of diabetic neuropathy as well as back pain due to spondylosis and sacroiliitis. ?Preoperatively patient received ? cefazolin 2 g approximately 10 minutes before the procedure. After obtaining informed consent the patient was brought to the operating room, she was positioned prone on operating table, ASA monitor were applied and the patient was minimally sedated. ?Time-out was performed delineating correct site, side, the nature of the procedure, patient's allergy, preoperative antibiotic if needed.? All operating room staff was participating in OR time-out procedure. Patient's entire back was prepped with Chloraprep twice and draped with full body fenestrated laparoscopy drape.? Sterilely draped C-arm was brought over operating field and square picture of the ? T12-L1 L2 vertebrae? were demonstrated on the screen.? ?Attention FIRST? was concentrated on the T12-L1 epidural interspace.? The location of the projection of the right pedicle center of the L2 vertebra was found on the skin using C-arm.? This location was injected with mixture of lidocaine 2% and Marcaine 0.5% - 5 cc.? After that 11 blade was used to make a linnette on the skin.? 10 cm 14 gauge? introducer epidural needle was inserted through the linnette and advanced to? T12-L1 epidural interspace.? The advancement of the needle was performed on anterior posterior and lateral views.?Loss of resistance to air? technique were used to locate epidural space., epidural lead was inserted through the needle and? advanced to the bottom of T7 posterior epidural space.. ? .? After that? the location of the projection of the LEFT pedicle center of the? L2 vertebra was found on the skin using C-arm.? This location was injected with mixture of lidocaine 2% and Marcaine 0.5% 5 cc.? After that 11 blade was used to make a linnette on the skin.? 10 cm 14 gauge introducer epidural needle was inserted through the linnette and advanced to [id number] interspace.? The advancement of the needle was performed on anterior posterior and lateral views.? Guitar wire and loss of resistance to air technique were used to locate epidural space.? When guitar wire was spread in the epidural fashion, epidural lead was inserted through the needle and advanced to the middle of? top of T9 epidural interspace slightly? left to the existing electrode. Lateral view demonstrated both electrodes in the posterior epidural space. Impedance was checked? and it was found to be satisfactory.? Posterior lead placement was verified by lateral x-ray ?The needles were withdrawn, the stylette wires were removed from the epidural leads.? The anchoring devices were dislodged on the leads and advanced to the level of the skin.? The anchoring de vices were sutured with two 0-0 ?Silk sutures per each anchor to the skin of the patient. The central fixation screw of each anchor was rotated until three clicks were heard. The leads were connected to testing device.? Bacitracin ointment was applied to the entrance point of bilateral wires.? Sterile dressing was applied to the patient's back.? The testing device was also taped to the patient's back.? the patient tolerated procedure well he was awaken and taken outside of the operating room to recovery room. he recovered uneventfully.
[2023-03-05] MEDS: oxyCODONE HCl Immed Release 5 MG TABLET 10 MG PO (09:46)
== END 2023-03-05 10:20 | disposition home or self-care (01) ==
PROVIDERS: PCP Internal Medicine; Visit Provider Anesthesiology
PROC: (CPT 63650; principal; 2023-03-05 07:30)
DX: G90.523 Complex regional pain syndrome I of lower limb, bilateral (principal); E13.42 Other specified diabetes mellitus with diabetic polyneuropathy; M47.816 Spondylosis without myelopathy or radiculopathy, lumbar region; M51.36 Other intervertebral disc degeneration, lumbar region; M46.1 Sacroiliitis, not elsewhere classified; G89.4 Chronic pain syndrome; M16.9 Osteoarthritis of hip, unspecified; M79.605 Pain in left leg; M79.604 Pain in right leg; G25.81 Restless legs syndrome; R20.2 Paresthesia of skin; M10.9 Gout, unspecified; I10 Essential (primary) hypertension; F33.9 Major depressive disorder, recurrent, unspecified; Z79.4 Long term (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; G47.33 Obstructive sleep apnea (adult) (pediatric)
CPT/HCPCS: 63650 ×2; 82947; C1713; C1778; J0690; J1100; J2250; J2405; J2795; J3010

== ENCOUNTER → 2023-03-05 06:05 | Outpatient (BNV) | payer OTHER, SELFPAY | PROVIDERS: PCP Internal Medicine; Visit Provider Anesthesiology | DX: E11.42 Type 2 diabetes mellitus with diabetic polyneuropathy (principal); M47.816 Spondylosis without myelopathy or radiculopathy, lumbar region; M46.1 Sacroiliitis, not elsewhere classified | CPT/HCPCS: 63650 ==

== ENCOUNTER 2023-03-11 09:04 | Outpatient (AMB) | payer OTHER, SELFPAY ==
--- NOTE | 2023-03-11 09:08 | A.OFFVIS_ITS ---
Intake Vital Signs 03/11/23 09:23 Height 6 ft 4 in Weight 304 lb BMI 37.0 BP 125/61 Blood Pressure Location Lt brachial Position Sitting Respiration 18 Pulse 83 Pulse Source Pulse Oximeter Pulse Oximetry (%) 96 Oxygen Delivery Method Room Air Intake Visit Reasons: s/p Nevro SCS Trial 03/05/23 Intake Note: patient comes in for post-op appointment. Allergies No Known Allergies Allergy (Verified 03/11/23 09:23) HPI HPI Comments History of Present Illness Details Adama is back in my office to after the trial of Nevro SCS. He reports excellent pain relief specially in bilateral lower extremities. He reports that he is able to sleep very well with device on he reports minor pain in the feet but it does not prevent him to take good sleep. He also reports the device helps for the lower back pain improved his mobility activities of daily living and improve his social interactions. He is very much interested in implantation of the device on permanent basis. I will schedule him for the procedure dolores. It will be scheduled under general anesthesia. He is suffering from spondylosis of the lumbar spine disc degeneration lumbar spine but his main problem is diabetic polyneuropathy of bilateral lower extremities. The insertion of the electrodes site dressing was removed, the site is clean no redness no pathological discharge no swelling no local tenderness. The site was prepped with ChloraPrep and anchoring sutures were severed using 15 blade scalpel. After that the wound was washed with ChloraPrep again and epidural leads were removed with tips intact. Sterile dressing with bacitracin was applied. The patient will be scheduled for the permanent implantation. Prior: SI joint injection results 3 weeks of pain relieve on diagnostic injection 100%.? I will schedule him for the The pain under right scapula is another problem for this patient.? I told him that this pain can be treated potentially as a myofascial pain syndrome and I can perform once he is here in my office a trigger point injection into this area hopefully it will give him good pain relief.? ?He is under care of urologist and urologist thinks that this pain might be related to his kidney stones.? However the larger stone he has? is on the left side and that he experiences pain only on the right.? He is going for shockwave lithotripsy with this urologist in the future to destroyed the stones.? As of his polyneuropathy it stems out from diabetes.? His hemoglobin A1c is equal to 8. it is certain improvement from number in around 10. however unf ortunately it is not good enough to reduce polyneuropathy.? He reports significant bilateral pain as burning sensations pins and needles in bilateral feet in the is distribution of the low socks.? We discussed the situation with peripheral neuropathy.? Explained to him that unless he would decrease his hemoglobin A1c below 6 I would not expect his pain getting better. ?He is suffering from axial lower back pain and peripheral diabetic polyneuropathy.? ? He was complaining on the pain in the lateral hip area, he was sent for hip x- ray which demonstrated almost no pathology normal alignment no cartilage loss. He went for consult with Dr. Rodrigez a neurosurgeon.? There were no indications to do any surgical interventions by Dr. Rodrigez. 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 Diabetes 1.5, managed as type 1 Complex regional pain syndrome of both lower extremities Diabetic peripheral neuropathy Spondylosis of lumbar region without myelopathy or radiculopathy Surgical History Hx of lithotripsy Hx of colonoscopy Family History Other Mental health disorder Social History Housing: Condominium Alcohol intake: never Patient Tobacco Use Status: Never used Tobacco e-Cigarette/Vaping Use: Never Used Second Hand Smoke Exposure: No Current occupational status: disabled Cognitive needs: No Hearing needs: No Vision needs: Yes Review of Systems Const All systems reviewed & are unremarkable except as noted in HPI and below Physical Exam Vital Signs: Last Vital Signs Pulse 83 03/11/23 09:23 Resp 18 03/11/23 09:23 BP 125/61 03/11/23 09:23 Pulse Ox 96 03/11/23 09:23 Oxygen Delivery Method Room Air 03/11/23 09:23 BMI result Body Mass Index 37.0 Const General: cooperative and no acute distress Nutritional Appearance: obese Limitations: no limitations HEENT Head: Yes normocephalic Ears: hearing grossly normal bilaterally Neck Neck: Yes full ROM and Yes supple Resp Effort & Inspection: normal respiratory effort and able to speak in complete sentences Back/Spine/Pelvis Other: Darryl test is positive bilaterally, Gaenslen test is positive bilaterally, pelvic compression test is positive on the right, Stinchfield test is positive on the right. Psych Appearance: grossly normal Mental Status: mental status grossly normal Speech and movement: Normal speech and movement present Affect: normal affect Attitude: cooperative Thought process: Normal thought process present Thought content: Normal thought content present Insight: Good insight present (Psych) Judgement: Good judgement present (Psych) Assessment & Plan Assessment & Plan (1) Hip osteoarthritis: Code(s): M16.9 - Osteoarthritis of hip, unspecified (2) Spondylosis of lumbar region without myelopathy or radiculopathy: Code(s): M47.816 - Spondylosis without myelopathy or radiculopathy, lumbar region (3) Diabetes type 2, uncontrolled: Code(s): E11.65 - Type 2 diabetes mellitus with hyperglycemia (4) Diabetic peripheral neuropathy: Code(s): E11.42 - Type 2 diabetes mellitus with diabetic polyneuropathy (5) Complex regional pain syndrome of both lower extremities: Code(s): G90.523 - Complex regional pain syndrome I of lower limb, bilateral (6) Sacroiliac joint pain: Code(s): M53.3 - Sacrococcygeal disorders, not elsewhere classified (7) Sacroiliitis: Code(s): M46.1 - Sacroiliitis, not elsewhere classified Plan Trial of Nevro SCS he reports reduction of the pain in bilateral lower extremities from 7-8 to down to 2/10. He also reports reduction of the pain in lower back at least 50% maybe more. He reports better mobility better activities of daily living better night's sleep on the device. The device was removed today as above. The patient will be scheduled for Nevro implantation. Coding Level of Care Code Est Pt Level 4 (43240) Diagnoses Hip osteoarthritis M16.9 Spondylosis of lumbar region without myelopathy or radiculopathy M47.816 Diabetes type 2, uncontrolled E11.65 Diabetic peripheral neuropathy E11.42 Complex regional pain syndrome of both lower extremities G90.523 Sacroiliac joint pain M53.3 Sacroiliitis M46.1
[2023-03-11 09:23] VITALS: BP 125/61; PULSE 83; RESP 18; O2SAT 96; BMI 37.0
== END 2023-03-11 09:31 | disposition home or self-care (01) ==
PROVIDERS: PCP Internal Medicine; Visit Provider Anesthesiology
DX: M16.9 Osteoarthritis of hip, unspecified (principal); M47.816 Spondylosis without myelopathy or radiculopathy, lumbar region; E11.65 Type 2 diabetes mellitus with hyperglycemia; E11.42 Type 2 diabetes mellitus with diabetic polyneuropathy; G90.523 Complex regional pain syndrome I of lower limb, bilateral; M53.3 Sacrococcygeal disorders, not elsewhere classified; M46.1 Sacroiliitis, not elsewhere classified
CPT/HCPCS: 99024

== ENCOUNTER → 2023-03-11 09:04 | Outpatient (BNVA) | payer OTHER, SELFPAY | PROVIDERS: PCP Internal Medicine; Visit Provider Anesthesiology ==

== ENCOUNTER 2023-03-26 11:55 | Outpatient (AMB) | payer OTHER, SELFPAY ==
--- NOTE | 2023-03-26 11:55 | A.OFFVIS_ITS ---
Intake Intake Visit Reasons: 3m follow up Intake Note: Patient is Present for Telephone Follow Up Urology Med: None Antibiotic Allergy: None Blood Thinner: Aspirin Pharamcy: [facility] Allergies No Known Allergies Allergy (Verified 03/11/23 09:23) HPI HPI Comments History of Present Illness Details Adama is a pleasant male. He is seen for the following urologic conditions - nephrolithiasis - hypocitrauria - erectile dysfunction Telemedicine Evaluation 15 min Consultation [employer] Mariela Video No stones on imaging Encourage fluid intake Twelve month follow-up Second issue erectile dysfunction No prior use of medications Background diabetes, obstructive sleep apnea, dyslipidemia, depression, hypertension Trial daily tadalafil 10 mg Nephrolithiasis Recurrent stone former Intervention - 05/18 right ESWL Indications - potassium citrate 20 mEq b.i.d. Urinalysis - 05/18 24 hour urine shows good volume with high sodium, low citrate - 12/17 good volume, improved sodium, imp roved citrate, improved pH, does have increased oxalate Imaging - 03/18 CT scan left distal ureter 3 mm s tone, 6 mm stone on right side - 04/17 renal ultrasound right side 6 mm stone - 06/17 renal ultrasound no evidence of stone, hematoma on right side post ESWL - 12/17 renal ultrasound no stones - 12/18 renal ultrasound no stones Therapeutic plan - 12 months with imaging [facility] Medical History Restless legs syndrome (RLS) Obstructive sleep apnea Chronic pain syndrome Ureteral calculus Fatty liver Gout Kidney stones Depression, major, recurrent Lipid disorder 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, essential correction (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 Diabetes 1.5, managed as type 1 Complex regional pain syndrome of both lower extremities Diabetic peripheral neuropathy Spondylosis of lumbar region without myelopathy or radiculopathy Surgical History Hx of lithotripsy Hx of colonoscopy Family History Other Mental health disorder Social History Housing: Condominium Alcohol intake: never Patient Tobacco Use Status: Never used Tobacco e-Cigarette/Vaping Use: Never Used Second Hand Smoke Exposure: No Current occupational status: disabled Cognitive needs: No Hearing needs: No Vision needs: Yes Review of Systems Const All systems reviewed & are unremarkable except as noted in HPI and below Reports no additional complaints Resp Reports no additional complaints GI Reports no additional complaints Reports as per HPI Musc Reports no additional complaints Physical Exam Telemedicine evaluation Appropriate responses Regular breathing rate and rhythm HEENT Head: Yes normal to inspection Ears: hearing grossly normal bilaterally Eyes General: appearance normal, both eyes and all related structures Neck Neck: Yes normal visual inspection Chest Chest palpation & inspection: normal inspection of the chest Resp Effort & Inspection: normal respiratory effort and able to speak in complete sentences Assessment & Plan Assessment & Plan (1) Erectile dysfunction associated with type 2 diabetes mellitus: Code(s): E11.69 - Type 2 diabetes mellitus with other specified complication; N52.1 - Erectile dysfunction due to diseases classified elsewhere Plan Trial tadalafil Medications: New tadalafil 10 mg PO DAILY 90 tabs 0RF sexual activity 90 days E11.69 - Type 2 diabetes mellitus with other specified complication, N52.1 - Erectile dysfunction due to diseases classified elsewhere Patient Instructions: Imaging studies, laboratory and physical exam results were discussed and reviewed in detail. No major barriers to patient understanding were identified. An opportunity to ask questions regarding the treatment plan was provided. All questions were answered. The patient expressed understanding and agreement with the above treatment plan. The patient is aware they should contact our office by phone for worsening of their current condition or the appearance of new urologic symptoms. Compliance is encouraged with any medications and followup testing that is ordered. It is a privilege to participate in the urologic care of your patient. If you have any questions or concerns regarding treatment for the above conditions, or other urologic issues, please do not hesitate to contact me. The office telephone contact is [phone]. This note is constructed using voice recognition software. While every effort has been made to ensure accuracy state fire marshal errors may have been included. Yours sincerely, Dr Sylvester Thompson MD, [facility] - Urology Providers of Expert, Compassionate Care for the Genitourinary System Telehealth Telehealth Location of provider rendering services: practice address Location of patient: address on file Patient Identification confirmed using: Name, : Yes Telehealth method: video Patient verbally consented to treatment: Yes Patient verbally consented to billing insurance company: Yes Patient informed of any privacy concerns related to visit: Yes Coding Level of Care Code Tele Est Pt Level 4 (96785) Diagnoses Erectile dysfunction associated with type 2 diabetes mellitus E11.69; N52.1
== END 2023-03-26 12:21 | disposition home or self-care (01) ==
LOC: HO.HUSH 11:55
PROVIDERS: PCP Internal Medicine; Visit Provider Urology
DX: E11.69 Type 2 diabetes mellitus with other specified complication (principal); N52.1 Erectile dysfunction due to diseases classified elsewhere
CPT/HCPCS: 99213

== ENCOUNTER → 2023-03-26 11:55 | Outpatient (BNVA) | payer OTHER, SELFPAY | PROVIDERS: PCP Internal Medicine; Visit Provider Urology ==

== ENCOUNTER 2023-04-09 07:18 | Outpatient (REF) | payer OTHER, SELFPAY ==
--- NOTE | ~2023-04-09 | MR_ITS ---
EXAMINATION: MR BRAIN WITHOUT CONTRAST CLINICAL INFORMATION: 57-year-old with memory changes, forgetful. COMPARISON: None available. TECHNIQUE: Multiplanar multisequence MR imaging of the brain was performed without IV contrast. FINDINGS: BRAIN VOLUME: Mild generalized diffuse parenchymal volume loss within the limitations of qualitative assessment. STRUCTURAL: No malformations. BRAIN AND MENINGES: DWI sequence demonstrates no restricted diffusion to suggest acute or subacute cerebral ischemia. Faint patchy zones of confluent T2 hyperintensity are noted in the deep parietal white matter bilaterally which are nonspecific findings but could reflect chronic ischemic microangiopathy. Otherwise, the brain parenchyma is normal in morphology and signal intensity. Gradient refocused imaging demonstrates no abnormal susceptibility-weighted signal loss to suggest hemorrhage, hemosiderin staining or abnormal mineralization. No extra-axial fluid collections, space-occupying process or mass effect are identified. VENTRICLES AND SUBARACHNOID SPACES: The ventricular system and subarachnoid spaces are consistent with mild generalized volume loss without hydrocephalus. ORBITAL STRUCTURES: The visualized orbital structures are grossly unremarkable within the limitations of the study. VASCULAR: Signal voids are noted in the visualized major intracranial vessels. OSSEOUS STRUCTURES, SINUSES/MASTOIDS, EXTRACRANIAL SOFT TISSUES: Osseous marrow signal intensity appears within normal limits. There is minor mucosal thickening in the maxillary sinuses and ethmoid complex bilaterally. Small retention cyst right sphenoid sinus. Visualized extracranial soft tissue structures appear grossly unremarkable. MR/MR head/brain wo con IMPRESSION: 1. Mild chronic ischemic microangiopathy in the white matter of both parietal lobes. 2. No acute intracranial process. No evidence for infarction, hemorrhage, extra-axial fluid collection, space-occupying process, mass effect or hydrocephalus. 3. Mild paranasal sinus mucosal inflammatory changes.
== END 2023-04-09 07:19 | disposition home or self-care (01) ==
LOC: HO.MRI 07:18
PROVIDERS: PCP Internal Medicine; Visit Provider Nurse Practitioner Family
DX: R41.3 Other amnesia (principal); R68.89 Other general symptoms and signs
CPT/HCPCS: 70551

== ENCOUNTER 2023-04-16 07:30 | Day surgery (SDC) | payer MEDICARE, MEDICAID, SELFPAY ==
[2023-04-14 11:55] VITALS: BMI 41.2
--- NOTE | 2023-04-15 10:57 | P.CONAN_ITS ---
Documented by User: Nidia Ortiz NP 04/15/23 10:59 HPI - Anesthesia Eval Consult details Narrative: 57yo M for Spinal Cord Stimulation Implant s/p trial 02/2023 with GA-ETT 8 Tx for chronic LE cellulitis CKD Stage 3 - last seen by nephro 01/2023 - stable with baseline creat 1.3-1.7 PMFSH Active Problems Active Problems: All Active Problems (Updated 03/26/23 @ 12:19 by Sylvester Thompson MD) Erectile dysfunction associated with type 2 diabetes mellitus (Acute) Fatigue (Acute) Hypersomnia (Acute) Vitamin D deficiency (Acute) Forgetfulness (Acute) Memory changes (Acute) Bilateral leg weakness (Acute) Nasal congestion (Acute) Sacroiliitis (Acute) Elevated serum creatinine (Acute) Hypocitraturia (Acute) Obesity due to excess calories (Acute) Nephrolithiasis (Acute) GÉNESIS (acute kidney injury) (Acute) Renal colic (Acute) Sacroiliac joint pain (Acute) Dermatitis (Acute) Gout (Acute) Cellulitis (Acute) Restless legs syndrome (RLS) (Acute) Obstructive sleep apnea (Acute) Chronic pain syndrome (Acute) Depression, major, recurrent (Acute) Lipid disorder (Acute) 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, essential (Acute) 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 (Acute) Diabetes 1.5, managed as type 1 (Acute) Complex regional pain syndrome of both lower extremities (Acute) Diabetic peripheral neuropathy (Acute) Spondylosis of lumbar region without myelopathy or radiculopathy (Acute) Past Medical History Medical History (Updated 03/26/23 @ 12:19 by Sylvester Thompson MD) Restless legs syndrome (RLS) Obstructive sleep apnea Chronic pain syndrome Ureteral calculus Fatty liver Gout Kidney stones Depression, major, recurrent Lipid disorder 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, essential senior care (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 Diabetes 1.5, managed as type 1 Complex regional pain syndrome of both lower extremities Diabetic peripheral neuropathy Spondylosis of lumbar region without myelopathy or radiculopathy Family History Family History Other Mental health disorder Family history of problems with anesthesia: No Surgical History Surgical History (Updated 04/14/23 @ 11:51 by Kelsie Scott RN) S/P placement of nerve stimulator Hx of lithotripsy Hx of colonoscopy History of Problems with Anesthesia: No Social History Social History Housing: Condominium Alcohol intake: never Patient Tobacco Use Status: Never used Tobacco e-Cigarette/Vaping Use: Never Used Second Hand Smoke Exposure: No Current occupational status: disabled Cognitive needs: No Hearing needs: No Vision needs: Yes Meds Allergies Allergy/AdvReac Type Severity Reaction Status Date / Time No Known Allergies Allergy Verified 03/11/23 09:23 Home Medications Medication Instructions Recorded Confirmed Last Taken Type bupropion HCl 300 mg 24 hr tablet, 300 mg PO QAM 04/17/20 04/14/23 03/05/23 History extended release duloxetine 60 mg capsule,delayed 60 mg PO BEDTIME 06/19/20 04/14/23 Unknown History release trazodone 50 mg tablet 100 mg PO BEDTIME 02/07/21 04/14/23 Unknown History amlodipine 5 mg tablet 5 mg PO DAILY 12/18/22 04/14/23 Unknown History Exam Exam Date and Time: April 15, 2023 1057 Height,Weight and Vital Signs: Height 6 ft Weight 137.892 kg Pertinent Lab Results Pertinent Lab Results: Laboratory Tests 01/13/23 09:53 WBC 5.9 Hgb 15.0 Hct 42.7 Plt Count 202 Sodium 140 Potassium 4.5 Chloride 104 Carbon Dioxide 26 BUN 29 H Creatinine 1.51 H Assessment and Plan Assessment Anesthesia Assessment: Chart Reviewed Final Anesthetic Review Family History of Problems with Anesthesia: No History of Problems with Anesthesia: No Documented by User: Philippe Marrero MD 04/16/23 06:07 [facility] Past Medical History Medical History (Updated 03/26/23 @ 12:19 by Sylvester Thompson MD) Restless legs syndrome (RLS) Obstructive sleep apnea Chronic pain syndrome Ureteral calculus Fatty liver Gout Kidney stones Depression, major, recurrent Lipid disorder 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, essential senior care (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 Diabetes 1.5, managed as type 1 Complex regional pain syndrome of both lower extremities Diabetic peripheral neuropathy Spondylosis of lumbar region without myelopathy or radiculopathy Family History Family History Other Mental health disorder Surgical History Surgical History (Updated 04/14/23 @ 11:51 by Kelsie Scott RN) S/P placement of nerve stimulator Hx of lithotripsy Hx of colonoscopy Social History Social History Housing: Condominium Alcohol intake: never Patient Tobacco Use Status: Never used Tobacco e-Cigarette/Vaping Use: Never Used Second Hand Smoke Exposure: No Current occupational status: disabled Cognitive needs: No Hearing needs: No Vision needs: Yes Meds Allergies Allergy/AdvReac Type Severity Reaction Status Date / Time No Known Allergies Allergy Verified 03/11/23 09:23 Home Medications Medication Instructions Recorded Confirmed Last Taken Type bupropion HCl 300 mg 24 hr tablet, 300 mg PO QAM 04/17/20 04/14/23 03/05/23 Hi story extended release duloxetine 60 mg capsule,delayed 60 mg PO BEDTIME 06/19/20 04/14/23 Unknown History release trazodone 50 mg tablet 100 mg PO BEDTIME 02/07/21 04/14/23 Unknown History amlodipine 5 mg tablet 5 mg PO DAILY 12/18/22 04/14/23 Unknown History Exam Airway Mallampati Class: III TM Dist: >3cm Neck ROM: Limited Heart: rrr Lungs: cta Assessment and Plan Assessment Anesthesia Assessment: Anesthesia Plan Discussed Final Anesthetic Review ASA Class: IV Final Preanesthetic Review: No Changes in Pt Med Stat, Meds/Allgs Chart Reviewed, Consent Obtained/Reviewed and Anes Risks/Benef Reviewed Patient Risk: High Procedure Risk: Intermediate Anesthetic Plan Anesthetic Plan: GA and Agree w/ Assess. and Plan Disposition: Standard PACU
[2023-04-16] VITALS (10 sets, daily range): BP systolic 100–146; BP diastolic 56–86; PULSE 69–76; RESP 16–18; TEMP 36.2–36.7; O2SAT 95–99
--- NOTE | ~2023-04-16 | FL_ITS ---
EXAMINATION: XR FLUOROSCOPY WITH IMAGES CLINICAL INFORMATION: Spinal STIM implant. COMPARISON: None available. TECHNIQUE: Fluoroscopy Supervised By: Dr. Ye Najera. Fluoroscopy Time: 2.7 minutes. Cumulative Dose: 98.1 mGy. DAP: 26.3 Gycm2. Images: 3. FINDINGS: Images demonstrate 2 spinal stimulator leads projecting over the lower thoracic spinal canal FL/FL guidance in OR IMPRESSION: Fluoroscopy guidance for pain management procedure
--- NOTE | 2023-04-16 08:00 | MHC.SHP ---
Pre-Procedural Eval Section A Date of Service: 04/16/23 The patient is an INPATIENT: No Changes since office visit: Yes Patient answered all questions The History & Physical has been completed within 30 days and I have reviewed it.: No Section B Chief Complaint: type 2 diabetes,complex regional pain syndrome Details of Present Illness: as above Relevant Family History (Specify if Yes): No Relevant Social History: None Present Medications: see Short Stay Collaborative assessment Medical History: Significant History History of Previous Operations: No relevant previous surgery Allergies: Allergies Allergy/AdvReac Type Severity Reaction Status Date / Time No Known Allergies Allergy Verified 03/11/23 09:23 Review of Systems Sugical H&P ROS: Negative: Cardiovascular, Respiratory, Psychiatric, Hem-Onc, Allergic/Immunologic, Gastrointestinal, Genitourinary, Integumentary and Eyes/Ears/Nose/Throat and Yes, Specify: Constitution (obesity), Neurological (neuropathy), Musculoskeletal (LBP) and Endocrine (diabetes mellitus) Exam Surgical H&P Exam: Normal: HEENT, Normal: Heart, Normal: Lungs, Normal: Extremities, Normal: Skin and Normal: Neurological and Significant Findings: Abdomen (enlarged 2 to i/a &s/q fat) Plan Diagnosis/Plan: Unchanged I have reviewed the history and physical and performed a pertinent physical examination on my patient. No changes have occurred unless specified. Time Spent With Patient Time: Total time managing care of this patient today _5___ minutes.
--- NOTE | 2023-04-16 08:07 | P.OP_ITS ---
Operative Note Operative Note Date of Service: 04/16/23 Narrative: implantation of the SCS Nevro lower thoracic spine Adama is very pleasant 57 years old gentleman who came today into the operating room for implantation of spinal cord stimulator for the treatment of chronic pain syndrome, spondylosis of lumbar spine, disc degeneration lumbar.. Preoperatively patient received ?cefazolin 3 g approximately 30 minutes before the procedure. After obtaining informed consent the patient was brought to the operating room, HE was supine on the stretcher? [employer] monitors were applied and general anesthesia was induced with endotracheal intubation. After that patient was transferred to the operating table prone all pressure points were protected. ?Time-out was performed delineating correct site, side, the nature of the procedure, patient's allergy, preoperative antibiotic if needed.? All operating room staff was participating in OR time-out procedure Patient's entire back was prepped with ChloraPrep twice and draped with full body fenestrated drape and ioban film.? Sterilely draped C-arm was brought over operating field and square picture of? T12-L1 and [id number] as were demonstrated on the screen.? The skin was? infiltrated with the mixture of lidocaine 2% and ropivacaine 0.5% in the projection of m L1 and L2? spinouse procesess.?? After that? number 10 Blade scalpel was used to perform strict midline 7 cm? long incision.? the incision was widened and deepened until the prevertebral fascia was reached. Thorough hemostasis was obtained,? After that attention? was concentrated on the T12-L1 epidural interspace.? The location of the projection of the right pedicle center of the? L2 vertebra was found on the fascia using C-arm.? This location was injected with mixture of lidocaine 2% and Marcaine 0.5% 5 cc.? ? 10 cm 14 gauge? introducer epidural needle was inserted through the prevertebral fascia and advanced to? T12-L1 epidural interspace.? The advancement of the needle was performed on anterior posterior and lateral views.? Guitar wire and loss of resistance technique were used to locate epidural space.? When guitar wire was spread in the epidural fashion, epidural lead was inserted through the needle and it was advanced to the posterior epidural space.The lead was advanced? slightly right from the midline? approximately to the? top of T8 vertebra in the posterior epidural space. ? After that location of the projection of the LEFT pedicle center of the L2 vertebra was found using C-arm.? This location was injected with mixture of lidocaine 2% and Marcaine 0.5% 5 cc.?10 cm 14 gauge? introducer epidural needle was inserted through the fascia and advanced to T12-L1 epidural interspace.? The advancement of the needle was performed on anterior posterior and lateral views.? Guitar wire and loss of resistance technique were used to locate epidural space.? When guitar wire was spread in the epidural fashion, epidural lead was inserted through the needle.? Loss of resistance to air technique and guitar wire were used to locate epidural space. After that the? epidural lead was advanced? slightly right to the existing electrode to the top of the? T9 vertebra in the posterior epidural space slightly left to the existing electrode.? lateral image was obtained demonstrating both epidural leads in posterior epidural space. After satisfactory position of the leads were established the needles were withdrawn, the stylette wires were removed from the epidural leads.? The anchoring devices were dislodged on the leads and advanced to the level of the prevertebral fascia.?After that the anchoring devices were sutured to the prevertebral fascia using Tycron 0-0 sutures - 2 sutures per each anchoroing device?. The both fixation screws were locked until 3 clicks heard. The wound was irrigated with vancomycin containing saline and packed with the 4x4 soaked with the same saline solution. After that attention was concentrated on the right upper buttock of the patient ? were the decision was made to implant the battery.? 4 cm below the top of the right iliac crest horizontal incision was made 6.5 cm long using 10 blade scalpel, hemostasis was performed using? electric cautery..? Using sharp and dull dissection pocket for the battery was formed in caudad direction from the incision.? Thorough hemostasis was performed.? After that the? wound pocket was? irrigated with vancomycin containing normal saline and tunneling device was used to connect midline incision and upper buttock incision Tunneling device was used to connect the two wounds.? The epidural leads were dislodged from midline incision to the flank incision through the tunneling device.? After that they were connected to the [employer] battery? and impedance was checked? and found to be satisfactory with all leads connected.? Anchoring? screws were fixed on the back of the battery.? Tycron of 0- 0 sutures were applied to the superior lateral and superior medial corners of the upper portion of the pocket? wound and after that the anchoring sutures were connected to the anchoring orifices on the battery.? Electrodes were gathered behind the body of the battery and battery was dislodged into the? subcutaneous pocket wound.? The sutures were tied and? irrigation was repeated.? After that?0-0 Polysorb sutures? used to close the? both wounds and the 0-2 polisorb sutures were used to apptoximate the level of the skin , [place] were applied to the skin and bacitracin ointment was applied to the staple lines. The sterile dressing comprised of several 4x4 for each wound was affixed to the skin using medipore tape.. The patient was transferred supine on the stretcher,? awaken, Extubated and transferred stable to the PACU.
[2023-04-16] MEDS: Lactated Ringers 1,000 ML 100 ML IVCONT (08:14)
--- NOTE | 2023-04-16 08:14 | PC.NURSE ---
patient currently taking penicillin for recurrent cellulitis on left lower extremity. skin brownish in color at cellulitis site. Dr. Marrero anesthesiologist and Dr. Najera aware.
[2023-04-16 08:33] LABS: Glucose, Whole Blood 138 mg/dL (60-115)
[2023-04-16 09:39] LABS: MRSA Nasal PCR NEGATIVE (Negative); SA Nasal PCR NEGATIVE (Negative)
--- NOTE | 2023-04-16 11:58 | P.BOP_ITS ---
Brief Operative Note Date of Service: 04/16/23 Pre-op diagnosis: Diabetic polyneuropathy, Complex regional pain syndrome bilateral lower extremities. Post-op diagnosis: same Procedure: Implantation of spinal cord stimulator Nevro and to epidural leads. Implants: To epidural leads and Omnia RPG Nevro Surgeon: Ye Najera MD Anesthesia: GETA Was an Economic History Teacher used for this Procedure?: No Estimated blood loss (mL): 19 Pathology: none sent Condition: stable Disposition: PACU
[2023-04-16] MEDS: HYDROmorphone HCl 0.5 MG/0.5 ML SYRINGE 0.25 MG IVPUSH (12:25)
[2023-04-16] MEDS: oxyCODONE HCl Immed Release 5 MG TABLET 10 MG PO (12:55)
== END 2023-04-16 14:15 | disposition home or self-care (01) ==
PROVIDERS: Registered Nurse Emergency; PCP Internal Medicine; Visit Provider Anesthesiology
PROC: (CPT 63685; principal; 2023-04-16 09:00)
DX: M47.816 Spondylosis without myelopathy or radiculopathy, lumbar region (principal); G89.4 Chronic pain syndrome; E13.42 Other specified diabetes mellitus with diabetic polyneuropathy; Z79.4 Long term (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; I10 Essential (primary) hypertension; G47.33 Obstructive sleep apnea (adult) (pediatric); K76.0 Fatty (change of) liver, not elsewhere classified; F33.9 Major depressive disorder, recurrent, unspecified; Z87.442 Personal history of urinary calculi; Z79.899 Other long term (current) drug therapy
CPT/HCPCS: 63685; 63650 ×2; 82947; 87640; 87641; C1713; C1778; C1787; C1816; J0131; J0690; J1170; J2250; J2405; J2795; J3010; J3370

== ENCOUNTER → 2023-04-16 07:30 | Outpatient (BNV) | payer OTHER, SELFPAY | PROVIDERS: PCP Internal Medicine; Visit Provider Anesthesiology | DX: G89.4 Chronic pain syndrome (principal); M47.816 Spondylosis without myelopathy or radiculopathy, lumbar region | CPT/HCPCS: 63650; 63685 ==

== ENCOUNTER 2023-04-22 08:55 | Outpatient (AMB) | payer OTHER, SELFPAY ==
--- NOTE | 2023-04-22 08:55 | MHC.OFFVIS ---
Intake Vital Signs 04/22/23 09:20 Height 6 ft Weight 300 lb BMI 40.7 BP 126/72 Blood Pressure Location Rt brachial Position Sitting Respiration 18 Pulse 81 Pulse Source Pulse Oximeter Pulse Oximetry (%) 98 Oxygen Delivery Method Room Air Intake Visit Reasons: s/p Nevro SCS Implant 04/16/23/CONFIRMED Intake Note: Patient comes in for post-op to Nevro SCS implant 04/16/23 week 1. Site was cleared, notice some redness, no drainage or swelling at site. Site clean with alcohol prep pad, and new dsd/tegaderm applied. Pain level today is 5/10. Allergies No Known Allergies Allergy (Verified 04/22/23 09:21) HPI HPI Comments History of Present Illness Details Adama is back in my office to after the implantation of Nevro SCS. His device is on minimal power now because he is still healing from the surgery. He exhibits slight redness in the projection of the incisions, more in the midline incision and less on the right-sided upper buttock incision. No swelling, no pathological discharge, no significant tenderness on palpation, and no local temperature. He continues to take antibiotics. Bacitracin ointment was applied. We will see the patient in 1 week and I will evaluate condition of the wound. It might be required to keep with the jessi little bit longer. Therefore the full power machine action could be delayed as well. Results of the trial of SCS Nevro: He reports excellent pain relief specially in bilateral lower extremities. He reports that he is able to sleep very well with device on he reports minor pain in the feet but it does not prevent him to take good sleep. He also reports the device helps for the lower back pain improved his mobility activities of daily living and improve his social interactions. He is very much interested in implantation of the device on permanent basis. He is suffering from spondylosis of the lumbar spine disc degeneration lumbar spine but his main problem is diabetic polyneuropathy of bilateral lower extremities. Prior: SI joint injection results 3 weeks of pain relieve on diagnostic injection 100%.? I will schedule him for the The pain under right scapula is another problem for this patient.? I told him that this pain can be treated potentially as a myofascial pain syndrome and I can perform once he is here in my office a trigger point injection into this area hopefully it will give him good pain relief.? ?He is under care of urologist and urologist thinks that this pain might be related to his kidney stones.? However the larger stone he has? is on the left side and that he experiences pain only on the right.? He is going for shockwave lithotripsy with this urologist in the future to destroyed the stones.? As of his polyneuropathy it stems out from diabetes.? His hemoglobin A1c is equal to 8. it is certain improvement from number in around 10. however unfortunately it is not good enough to reduce polyneuropathy.? He reports significant bilateral pain as burning sensations pins and needles in bilateral feet in the is distribution of the low socks.? We discussed the situation with peripheral neuropathy.? Explained to him that unless he would decrease his hemoglobin A1c below 6 I would not expect his pain getting better. ?He is suffering from axial lower back pain and peripheral diabetic polyneuropathy.? ? He was complaining on the pain in the lateral hip area, he was sent for hip x-ray which demonstrated almost no pathology normal alignment no cartilage loss. He went for consult with Dr. Rodrigez a neurosurgeon.? There were no indications to do any surgical interventions by Dr. Rodrigez. 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 Diabetes 1.5, managed as type 1 Complex regional pain syndrome of both lower extremities Diabetic peripheral neuropathy Spondylosis of lumbar region without myelopathy or radiculopathy Surgical History (Updated 04/14/23 @ 11:51 by Kelsie Scott RN) S/P placement of nerve stimulator Hx of lithotripsy Hx of colonoscopy Family History Other Mental health disorder Social History Housing: Condominium Alcohol intake: never Patient Tobacco Use Status: Never used Tobacco e-Cigarette/Vaping Use: Never Used Second Hand Smoke Exposure: No Current occupational status: disabled Cognitive needs: No Hearing needs: No Vision needs: Yes Review of Systems Const All systems reviewed & are unremarkable except as noted in HPI and below Physical Exam Vital Signs: Last Vital Signs Pulse 81 04/22/23 09:20 Resp 18 04/22/23 09:20 BP 126/72 04/22/23 09:20 Pulse Ox 98 04/22/23 09:20 Oxygen Delivery Method Room Air 04/22/23 09:20 BMI result Body Mass Index 40.7 Const General: cooperative and no acute distress Nutritional Appearance: obese Limitations: no limitations HEENT Head: Yes normocephalic Ears: hearing grossly normal bilaterally Neck Neck: Yes full ROM and Yes supple Resp Effort & Inspection: normal respiratory effort and able to speak in complete sentences Psych Appearance: grossly normal Mental Status: mental status grossly normal Speech and movement: Normal speech and movement present Affect: normal affect Attitude: cooperative Thought process: Normal thought process present Thought content: Normal thought content present Insight: Good insight present (Psych) Judgement: Good judgement present (Psych) Assessment & Plan Assessment & Plan (1) Hip osteoarthritis: Code(s): M16.9 - Osteoarthritis of hip, unspecified (2) Spondylosis of lumbar region without myelopathy or radiculopathy: Code(s): M47.816 - Spondylosis without myelopathy or radiculopathy, lumbar region (3) Diabetes type 2, uncontrolled: Code(s): E11.65 - Type 2 diabetes mellitus with hyperglycemia (4) Diabetic peripheral neuropathy: Code(s): E11.42 - Type 2 diabetes mellitus with diabetic polyneuropathy (5) Complex regional pain syndrome of both lower extremities: Code(s): G90.523 - Complex regional pain syndrome I of lower limb, bilateral (6) Sacroiliac joint pain: Code(s): M53.3 - Sacrococcygeal disorders, not elsewhere classified (7) Sacroiliitis: Code(s): M46.1 - Sacroiliitis, not elsewhere classified Plan One week after implantation of Nevro SCS he presents for dressing change in evaluation. The dressing was changed slight redness mostly on the midline incision but also minimal redness at the right upper buttock incision. He continues antibiotics. Bacitracin ointment was applied. Machine is on low power now. After his wounds will completely heal will turn machine to the full power. Next appointment in 1 week. Patient Instructions: I here by testify that I spent 20 minutes evaluating prior records of this patient examining the wounds of this patient and planning his care. Coding Level of Care Code Est Pt Level 3 (70490) Diagnoses Hip osteoarthritis M16.9 Spondylosis of lumbar region without myelopathy or radiculopathy M47.816 Diabetes type 2, uncontrolled E11.65 Diabetic peripheral neuropathy E11.42 Complex regional pain syndrome of both lower extremities G90.523 Sacroiliac joint pain M53.3 Sacroiliitis M46.1
[2023-04-22 09:20] VITALS: BP 126/72; PULSE 81; RESP 18; O2SAT 98; BMI 40.7
== END 2023-04-22 09:44 | disposition home or self-care (01) ==
PROVIDERS: PCP Internal Medicine; Visit Provider Anesthesiology
DX: M16.9 Osteoarthritis of hip, unspecified (principal); M47.816 Spondylosis without myelopathy or radiculopathy, lumbar region; E11.65 Type 2 diabetes mellitus with hyperglycemia; E11.42 Type 2 diabetes mellitus with diabetic polyneuropathy; G90.523 Complex regional pain syndrome I of lower limb, bilateral; M53.3 Sacrococcygeal disorders, not elsewhere classified; M46.1 Sacroiliitis, not elsewhere classified
CPT/HCPCS: 99024

== ENCOUNTER → 2023-04-22 08:55 | Outpatient (BNVA) | payer OTHER, SELFPAY | PROVIDERS: PCP Internal Medicine; Visit Provider Anesthesiology ==

== ENCOUNTER 2023-04-23 13:54 | Outpatient (AMB) | payer OTHER, SELFPAY ==
[2023-04-23 14:00] VITALS: BP 124/78; PULSE 91; O2SAT 94; BMI 41.7
--- NOTE | 2023-04-23 14:00 | MHC.PC.OV ---
Vital Signs 04/23/23 14:00 Height 6 ft Weight 307 lb 6 oz BMI 41.7 BP 124/78 Blood Pressure Location Lt brachial Pulse 91 Pulse Source Pulse Oximeter Pulse Oximetry (%) 94 Oxygen Delivery Method Room Air Intake Visit Reasons: 3 Month follow up DM Allergies No Known Allergies Allergy (Verified 04/23/23 14:01) Medication List - Last Reconciled 04/23/23 by Gabby Kelly MD allopurinol 300 mg PO DAILY amlodipine 5 mg PO DAILY aspirin (Erick Low Dose Aspirin) 81 mg PO DAILY 90 days atorvastatin 20 mg PO DAILY 90 days blood-glucose meter (Mobiss[employer] Lite Meter kit) As directed bupropion HCl 300 mg PO QAM cephalexin 1,000 mg (2 x 500 mg) PO Q8H 14 days duloxetine 60 mg PO BEDTIME flash glucose scanning reader (M[employer] Sonido 2 [place]) As directed flash glucose sensor (Aptalis Pharmayle Sonido 2 Sensor kit) As directed furosemide 20 mg PO QAM 90 days gabapentin 800 mg PO TID insulin glargine (Lantus Solostar U-100 Insulin) 50 units (0.5 mL) subcut QPM 90 days lancets (M[employer]issimo Lancets) TID PRN losartan 100 mg PO DAILY pen needle, diabetic (AboutTime Pen Needle) As directed penicillin V potassium 250 mg PO BID 90 days pioglitazone 15 mg PO DAILY potassium citrate ER 20 mEq (2 x 10 mEq (1,080 mg)) PO BID 90 days spironolactone 25 mg PO DAILY 90 days tadalafil 10 mg PO DAILY 90 days trazodone 100 mg PO BEDTIME Tobacco use date assessed: 01/15/23 Dental Screening Dental Screen Date: 04/23/23 Did you have a dental visit in the last 12 months?: Yes Did you have a dental problem in the last 6 months where you did not have access to dental care?: No Was dental information given to patient?: Patient has dentist HPI 3 Month follow up DM HPI Details Patient is 57-year-old gentleman came in today for his regular follow-up He is here with his today who states that patient gets very short of breath when he is doing activities He does not have a history of smoking, at this time he is comfortable his chest is clear, I have ordered pulmonary function test for the patient patient is currently on long-acting insulin 50 units in the night and short-acting insulin 3 units before meals 3 times a day.? Patient is also taking Actos 15 mg due for labs He suffers from diabetic neuropathy Nephropathy: he is seeing Dr Abraham, all his blood pressure medications are through Nephrology office now however Dr. Garsia has moved to a new practice Patient has also been seeing Urology , for renal calculi, and was started on potassium supplement recently to prevent them He also have diabetic erectile dysfunction which is being treated by urology Gout is stable patient is on allopurinol 300 mg.? All his psychiatric medications are through Psychiatry. Patient suffers from major depression and continued to be depressed Continue atorvastatin 20 mg for lipid control Pain medication through Pain Management, patient is on high-dose gabapentin, he has nerve stimulator now , and is gradually improving BMI is 41.7 patient is morbidly obese having difficulty losing weight Follow-up 3 months PFS Medical History Restless legs syndrome (RLS) Obstructive sleep apnea Chronic pain syndrome Ureteral calculus Fatty liver Gout Kidney stones Depression, major, recurrent Lipid disorder 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, essential senior care (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 Diabetes 1.5, managed as type 1 Complex regional pain syndrome of both lower extremities Diabetic peripheral neuropathy Spondylosis of lumbar region without myelopathy or radiculopathy Surgical History S/P placement of nerve stimulator Hx of lithotripsy Hx of colonoscopy Family History Other Mental health disorder Social History Housing: Condominium Alcohol intake: never Patient Tobacco Use Status: Never used Tobacco e-Cigarette/Vaping Use: Never Used Second Hand Smoke Exposure: No Current occupational status: disabled Cognitive needs: No Hearing needs: No Vision needs: Yes Questionnaire PHQ-9 Over the last 2 weeks, how often have you been bothered by any of the following problems? 1. Little interest or pleasure in doing things: more than half the days 2. Feeling down, depressed, or hopeless: more than half the days 3. Trouble falling or staying asleep, or sleeping too much: more than half the days 4. Feeling tired or having little energy: nearly every day 5. Poor appetite or overeating: more than half the days 6. Feeling bad about yourself - or that you are a failure or have let yourself or your family down: more than half the days 7. Trouble concentrating on things, such as reading the newspaper or watching television: nearly every day 8. Moving or speaking so slowly that other people could have noticed. Or the opposite - being so fidgety or restless that you have been moving around a lot more than usual: several days 9. Thoughts that you would be better off or of hurting yourself in some way: several days Total score: 18 Depression Screening Interpretation: Positive Depression Screening Follow-up: Existing condition and In treatment Depression Screening Done: Yes 43910 - PHQ-9 Billing: Yes Source: Developed by Drs. Ken Padilla, Vandana Magallon, Janusz Barlow and colleagues, with an educational nick from [employer]. Thrive Questionnaire Date Thrive assessed: 10/30/22 CRISTOBAL-7 AMB Questionnaire CRISTOBAL-7 Date CRISTOBAL - 7 assessed: 10/30/22 Source: Developed by Drs. Ken Padilla, Vandana Magallon, Janusz Barlow and colleagues, with an educational nick from [employer]. Review of Systems Const Denies chills and Denies fever(s) ENT Denies epistaxis and Denies nasal discharge Card Denies chest pain Resp Denies chest congestion, Denies cough and Denies hemoptysis GI Denies diarrhea and Denies nausea Skin/Breast Denies rash Neuro Reports no additional complaints Psych Reports no additional complaints Endo Reports no additional complaints Physical exam (Primary Care) Vital Signs: Last Vital Signs Pulse 91 04/23/23 14:00 BP 124/78 04/23/23 14:00 Pulse Ox 94 04/23/23 14:00 Oxygen Delivery Method Room Air 04/23/23 14:00 BMI result Body Mass Index 41.7 Tobacco/Smoking Status: Tobacco use Status Tobacco use date assessed 01/15/23 04/23/23 14:02 Patient Tobacco Use Status Never used Tobacco 04/23/23 14:02 e-Cigarette/Vaping Use Never Used 04/23/23 14:02 PHQ-9: PHQ-9 Score PHQ-9: Total score 18 04/23/23 14:21 Depression Screening Interpretation: Positive Depression Screening Follow-up: Existing condition and In treatment Thrive Assessment: Date of Thrive Assessment Date Thrive assessed 10/30/22 04/23/23 14:02 Const General: cooperative, comfortable and no acute distress Orientation/consciousness: patient oriented x3 HENMT Head: Yes normocephalic Eyes General: appearance normal, both eyes and all related structures Neck Neck: Yes supple Resp Effort & Inspection: normal respiratory effort, no cough and no stridor Cardio Rhythm: regular rhythm Heart sounds: S1 normal heart sound present and S2 normal heart sound present Skin General skin exam: turgor normal Neuro General: patient oriented x3, tone normal and moves all extremities Extrem Right lower extremity: no edema Left lower extremity: no edema Assessment and Plan Assessment & Plan (1) Shortness of breath: Code(s): R06.02 - Shortness of breath (2) Diabetes 1.5, managed as type 1: Code(s): E13.9 - Other specified diabetes mellitus without complications (3) senior care (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: Code(s): Z79.4 - intermediate designer (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 (4) Diabetic peripheral neuropathy: Code(s): E11.42 - Type 2 diabetes mellitus with diabetic polyneuropathy (5) Depression, major, recurrent: Code(s): F33.9 - Major depressive disorder, recurrent, unspecified Qualifiers: Active/Remission status: currently active Major depression episode severity: moderate Qualified Code(s): F33.1 - Major depressive disorder, recurrent, moderate (6) Lipid disorder: Code(s): E78.9 - Disorder of lipoprotein metabolism, unspecified (7) Obstructive sleep apnea: Comment: Severe degree of KRISTIN. AHI 47/hr with oxygen jeremiah was 75%. Code(s): G47.33 - Obstructive sleep apnea (adult) (pediatric) (8) Diabetic nephropathy: Code(s): E11.21 - Type 2 diabetes mellitus with diabetic nephropathy Qualifiers: Diabetes mellitus type: due to underlying condition Qualified Code(s): E08.21 - Diabetes mellitus due to underlying condition with diabetic nephropathy (9) Anemia: Code(s): D64.9 - Anemia, unspecified Qualifiers: Anemia type: due to chronic kidney disease Chronic kidney disease stage: stage 3 (moderate) Chronic kidney disease stage 3 subtype: stage 3a (GFR 45-59) Qualified Code(s): N18.31 - Chronic kidney disease, stage 3a; D63.1 - Anemia in chronic kidney disease (10) Morbid obesity due to excess calories: Code(s): E66.01 - Morbid (severe) obesity due to excess calories Plan Patient is 57-year-old gentleman came in today for his regular follow-up He is here with his today who states that patient gets very short of breath when he is doing activities He does not have a history of smoking, at this time he is comfortable his chest is clear, I have ordered pulmonary function test for the patient patient is currently on long-acting insulin 50 units in the night and short-acting insulin 3 units before meals 3 times a day.? Patient is also taking Actos 15 mg due for labs He suffers from diabetic neuropathy Nephropathy: he is seeing Dr Abraham, all his blood pressure medications are through Nephrology office now however Dr. Garsia has moved to a new practice Patient has also been seeing Urology , for renal calculi, and was started on potassium supplement recently to prevent them He also have diabetic erectile dysfunction which is being treated by urology Gout is stable patient is on allopurinol 300 mg.? All his psychiatric medications are through Psychiatry. Patient suffers from major depression and continued to be depressed Continue atorvastatin 20 mg for lipid control Pain medication through Pain Management, patient is on high-dose gabapentin, he has nerve stimulator now , and is gradually improving BMI is 41.7 patient is morbidly obese having difficulty losing weight Follow-up 3 months Orders: Orders Comprehensive Met. Panel 3 Months D64.9 - Anemia, unspecified, E11.21 - Type 2 diabetes mellitus with diabetic nephropathy, E11.42 - Type 2 diabetes mellitus with diabetic polyneuropathy, E13.9 - Other specified diabetes mellitus without complications, E66.01 - Morbid (severe) obesity due to excess calories, E78.9 - Disorder of lipoprotein metabolism, unspecified, F33.9 - Major depressive disorder, recurrent, unspecified, G47.33 - Obstructive sleep apnea (adult) (pediatric), R06.02 - Shortness of breath, Z79.4 - intermediate designer (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 Microalbumin, Random (w Creat) 3 Months D64.9 - Anemia, unspecified, E11.21 - Type 2 diabetes mellitus with diabetic nephropathy, E11.42 - Type 2 diabetes mellitus with diabetic polyneuropathy, E13.9 - Other specified diabetes mellitus without complications, E66.01 - Morbid (severe) obesity due to excess calories, E78.9 - Disorder of lipoprotein metabolism, unspecified, F33.9 - Major depressive disorder, recurrent, unspecified, G47.33 - Obstructive sleep apnea (adult) (pediatric), R06.02 - Shortness of breath, Z79.4 - intermediate designer (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 PFT pulmonary function test Today R06.02 - Shortness of breath Hemoglobin A1c 3 Months D64.9 - Anemia, unspecified, E11.21 - Type 2 diabetes mellitus with diabetic nephropathy, E11.42 - Type 2 diabetes mellitus with diabetic polyneuropathy, E13.9 - Other specified diabetes mellitus without complications, E66.01 - Morbid (severe) obesity due to excess calories, E78.9 - Disorder of lipoprotein metabolism, unspecified, F33.9 - Major depressive disorder, recurrent, unspecified, G47.33 - Obstructive sleep apnea (adult) (pediatric), R06.02 - Shortness of breath, Z79.4 - senior care (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 Complete Blood Count Auto Diff 3 Months D64.9 - Anemia, unspecified, E11.21 - Type 2 diabetes mellitus with diabetic nephropathy, E11.42 - Type 2 diabetes mellitus with diabetic polyneuropathy, E13.9 - Other specified diabetes mellitus without complications, E66.01 - Morbid (severe) obesity due to excess calories, E78.9 - Disorder of lipoprotein metabolism, unspecified, F33.9 - Major depressive disorder, recurrent, unspecified, G47.33 - Obstructive sleep apnea (adult) (pediatric), R06.02 - Shortness of breath, Z79.4 - senior care (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 Coding Level of Care Code Est Pt Level 4 (58561) Diagnoses Shortness of breath R06.02 Diabetes 1.5, managed as type 1 E13.9 intermediate designer (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 Z79.4 Diabetic peripheral neuropathy E11.42 Moderate episode of recurrent major depressive disorder F33.1 Active/Remission status: currently active Major depression episode severity: moderate Lipid disorder E78.9 Obstructive sleep apnea G47.33 Diabetic nephropathy associated with diabetes mellitus due to underlying condition E08.21 Diabetes mellitus type: due to underlying condition Anemia due to stage 3a chronic kidney disease N18.31; D63.1 Anemia type: due to chronic kidney disease Chronic kidney disease stage: stage 3 (moderate) Chronic kidney disease stage 3 subtype: stage 3a (GFR 45-59) Morbid obesity due to excess calories E66.01
== END 2023-04-23 16:02 | disposition home or self-care (01) ==
PROVIDERS: PCP Internal Medicine; Visit Provider Internal Medicine
DX: E11.42 Type 2 diabetes mellitus with diabetic polyneuropathy (principal); Z79.4 Long term (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; F33.1 Major depressive disorder, recurrent, moderate; N18.31 Chronic kidney disease, stage 3a; E08.21 Diabetes mellitus due to underlying condition with diabetic nephropathy; E66.01 Morbid (severe) obesity due to excess calories; E78.9 Disorder of lipoprotein metabolism, unspecified; R06.02 Shortness of breath; G47.33 Obstructive sleep apnea (adult) (pediatric); D63.1 Anemia in chronic kidney disease
CPT/HCPCS: 99214

== ENCOUNTER 2023-04-26 10:33 | Outpatient (REF) | payer OTHER, SELFPAY ==
[2023-04-26 13:30] LABS: Estimated Average Glucose 111 mg/dL; Hemoglobin A1c % 5.5 % (<6.0)
[2023-04-26 13:58] LABS: Alanine Aminotransferase 26 U/L (0-40); Albumin Level 4.3 g/dL (3.5-5.0); Alkaline Phosphatase 81 U/L (39-117); Anion Gap 17 (12-20); Aspartate Amino Transferase 24 U/L (5-37); Bilirubin Total 0.5 mg/dL (0.0-1.0); Blood Urea Nitrogen 29 mg/dL (9-16); Calcium 9.6 mg/dL (8.4-10.2); Carbon Dioxide 25 mmol/L (22-29); Chloride 103 mmol/L (96-108); Estimated Glomerular Filt Rate 46; Glucose Random 115 mg/dL (60-115); Potassium 4.3 mmol/L (3.3-5.1); Sodium 141 mmol/L (135-145); Total Protein 7.1 g/dL (6.5-8.0)
[2023-04-26 13:59] LABS: TSH reflex Free T4 1.31 uIU/mL (0.32-4.0)
[2023-04-26 14:11] LABS: Folate 15.4 ng/mL (> or = 4.0); Vitamin B12 1377 pg/mL (200-900)
[2023-04-30 14:49] LABS: Vitamin D 25-OH, D2 <4 ng/mL; Vitamin D 25-OH, D3 32 ng/mL; Vitamin D 25-OH, Total 32 ng/mL (30-100)
== END 2023-04-26 10:34 | disposition home or self-care (01) ==
LOC: HO.HMGCLDS 10:33
PROVIDERS: Absent Provider Nurse Practitioner Family; PCP Internal Medicine; Visit Provider Internal Medicine
DX: E11.42 Type 2 diabetes mellitus with diabetic polyneuropathy (principal); I10 Essential (primary) hypertension; E78.9 Disorder of lipoprotein metabolism, unspecified; F33.9 Major depressive disorder, recurrent, unspecified; R41.3 Other amnesia; R68.89 Other general symptoms and signs; E55.9 Vitamin D deficiency, unspecified; G47.10 Hypersomnia, unspecified
CPT/HCPCS: 36415; 80053; 82306; 82607; 82746; 83036; 84443

== ENCOUNTER 2023-04-29 08:49 | Outpatient (AMB) | payer OTHER, SELFPAY ==
--- NOTE | 2023-04-29 08:56 | MHC.OFFVIS ---
Intake Vital Signs 04/29/23 09:16 Height 6 ft Weight 307 lb BMI 41.6 BP 122/74 Blood Pressure Location Lt brachial Position Sitting Respiration 16 Pulse 93 Pulse Source Pulse Oximeter Pulse Oximetry (%) 96 Oxygen Delivery Method Room Air Intake Visit Reasons: s/p Nevro SCS Implant 04/16/23 Intake Note: Patient comes in for s/p Nevro SCS Implant 04/16/23 week 2. Allergies No Known Allergies Allergy (Verified 04/29/23 09:17) HPI HPI Comments History of Present Illness Details Adama is back in my office to after the implantation of Nevro SCS. His device is on minimal power now because he is still healing from the surgery. He exhibits much less Will in the projection of the incisions, No swelling, no pathological discharge, no significant tenderness on palpation, and no local temperature. He is chronically on antibiotics penicillin for prevention of the cellulitis of the lower extremities. He was examined by vascular surgeon. The jessi were removed today It might be required to keep with the jessi little bit longer. Therefore the full power machine action could be delayed as well. Genie consumer sales representative is today with the patient and he expresses the concerned that possibility exists that the leads minimally shifted down the spine. To appropriately perform the stimulation I will send the patient for the thoracic x-ray. The patient will go for these today after visit with me and Genie bradford. Results of the trial of SCS Nevro: He reports excellent pain relief specially in bilateral lower extremities. He reports that he is able to sleep very well with device on he reports minor pain in the feet but it does not prevent him to take good sleep. He also reports the device helps for the lower back pain improved his mobility activities of daily living and improve his social interactions. He is very much interested in implantation of the device on permanent basis. He is suffering from spondylosis of the lumbar spine disc degeneration lumbar spine but his main problem is diabetic polyneuropathy of bilateral lower extremities. Prior: SI joint injection results 3 weeks of pain relieve on diagnostic injection 100%.? I will schedule him for the The pain under right scapula is another problem for this patient.? I told him that this pain can be treated potentially as a myofascial pain syndrome and I can perform once he is here in my office a trigger point injection into this area hopefully it will give him good pain relief.? ?He is under care of urologist and urologist thinks that this pain might be related to his kidney stones.? However the larger stone he has? is on the left side and that he experiences pain only on the right.? He is going for shockwave lithotripsy with this urologist in the future to destroyed the stones.? As of his polyneuropathy it stems out from diabetes.? His hemoglobin A1c is equal to 8. it is certain improvement from number in around 10. however unfortunately it is not good enough to reduce polyneuropathy.? He reports significant bilateral pain as burning sensations pins and needles in bilateral feet in the is distribution of the low socks.? We discussed the situation with peripheral neuropathy.? Explained to him that unless he would decrease his hemoglobin A1c below 6 I would not expect his pain getting better. ?He is suffering from axial lower back pain and peripheral diabetic polyneuropathy.? ? He was complaining on the pain in the lateral hip area, he was sent for hip x-ray which demonstrated almost no pathology normal alignment no cartilage loss. He went for consult with Dr. Rodrigez a neurosurgeon.? There were no indications to do any surgical interventions by Dr. Rodrigez. [facility] Medical History Restless legs syndrome (RLS) Obstructive sleep apnea Chronic pain syndrome Ureteral calculus Fatty liver Gout Kidney stones Depression, major, recurrent Lipid disorder 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, essential group home (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 Diabetes 1.5, managed as type 1 Complex regional pain syndrome of both lower extremities Diabetic peripheral neuropathy Spondylosis of lumbar region without myelopathy or radiculopathy Surgical History S/P placement of nerve stimulator Hx of lithotripsy Hx of colonoscopy Family History Other Mental health disorder Social History Housing: Condominium Alcohol intake: never Patient Tobacco Use Status: Never used Tobacco e-Cigarette/Vaping Use: Never Used Second Hand Smoke Exposure: No Current occupational status: disabled Cognitive needs: No Hearing needs: No Vision needs: Yes Review of Systems Const All systems reviewed & are unremarkable except as noted in HPI and below Physical Exam Vital Signs: Last Vital Signs Pulse 93 04/29/23 09:16 Resp 16 04/29/23 09:16 BP 122/74 04/29/23 09:16 Pulse Ox 96 04/29/23 09:16 Oxygen Delivery Method Room Air 04/29/23 09:16 BMI result Body Mass Index 41.6 Const General: cooperative and no acute distress Nutritional Appearance: obese Limitations: no limitations HEENT Head: Yes normocephalic Ears: hearing grossly normal bilaterally Neck Neck: Yes full ROM and Yes supple Resp Effort & Inspection: normal respiratory effort and able to speak in complete sentences Psych Appearance: grossly normal Mental Status: mental status grossly normal Speech and movement: Normal speech and movement present Affect: normal affect Attitude: cooperative Thought process: Normal thought process present Thought content: Normal thought content present Insight: Good insight present (Psych) Judgement: Good judgement present (Psych) Assessment & Plan Assessment & Plan (1) Spinal cord stimulator status: Code(s): Z96.89 - Presence of other specified functional implants (2) Hip osteoarthritis: Code(s): M16.9 - Osteoarthritis of hip, unspecified (3) Spondylosis of lumbar region without myelopathy or radiculopathy: Code(s): M47.816 - Spondylosis without myelopathy or radiculopathy, lumbar region (4) Diabetes type 2, uncontrolled: Code(s): E11.65 - Type 2 diabetes mellitus with hyperglycemia (5) Diabetic peripheral neuropathy: Code(s): E11.42 - Type 2 diabetes mellitus with diabetic polyneuropathy (6) Complex regional pain syndrome of both lower extremities: Code(s): G90.523 - Complex regional pain syndrome I of lower limb, bilateral (7) Sacroiliac joint pain: Code(s): M53.3 - Sacrococcygeal disorders, not elsewhere classified (8) Sacroiliitis: Code(s): M46.1 - Sacroiliitis, not elsewhere classified Plan One week after implantation of Nevro SCS he presents for dressing change in evaluation. The dressing was changed the redness much subsided the ages of the wounds competent and jessi were removed today. Bacitracin ointment was applied. Never rep is with the patient today interrogating the device. He expressed some concerns about position of the leads we will send patient for the x-ray of the thoracic spine to evaluate position of the leads and perform the stimulation appropriately. I will evaluate his leads position. Next appointment is as needed. Orders: Orders XR thoracic spine 3V Today Z96.89 - Presence of other specified functional implants Coding Level of Care Code Est Pt Level 3 (22533) Diagnoses Spinal cord stimulator status Z96.89 Hip osteoarthritis M16.9 Spondylosis of lumbar region without myelopathy or radiculopathy M47.816 Diabetes type 2, uncontrolled E11.65 Diabetic peripheral neuropathy E11.42 Complex regional pain syndrome of both lower extremities G90.523 Sacroiliac joint pain M53.3 Sacroiliitis M46.1
[2023-04-29 09:16] VITALS: BP 122/74; PULSE 93; RESP 16; O2SAT 96; BMI 41.6
== END 2023-04-29 10:09 | disposition home or self-care (01) ==
PROVIDERS: PCP Internal Medicine; Visit Provider Anesthesiology
DX: M16.9 Osteoarthritis of hip, unspecified (principal); Z96.89 Presence of other specified functional implants; M47.816 Spondylosis without myelopathy or radiculopathy, lumbar region; E11.65 Type 2 diabetes mellitus with hyperglycemia; E11.42 Type 2 diabetes mellitus with diabetic polyneuropathy; G90.523 Complex regional pain syndrome I of lower limb, bilateral; M53.3 Sacrococcygeal disorders, not elsewhere classified; M46.1 Sacroiliitis, not elsewhere classified
CPT/HCPCS: 99213

== ENCOUNTER 2023-04-29 08:49 | Outpatient (REF) | payer OTHER, SELFPAY ==
--- NOTE | ~2023-04-29 | XR_ITS ---
EXAMINATION: XR THORACIC SPINE CLINICAL INFORMATION: Presence of functional implants. COMPARISON: Chest of 03/10/2020. Lower fluoroscopic guidance images of 04/16/2023. TECHNIQUE: 5 views of the thoracic spine. FINDINGS: Lung volumes are low. Visualization limited due to body habitus. Redemonstration of 2 spinal stimulator leads projecting over the lower thoracic spinal canal. Mild S-shaped thoracolumbar scoliosis. Mild multilevel degenerative changes with hypertrophic change in the thoracic spine. No thoracic vertebral body compression fractures are identified, although visualization of the upper thoracic spine is limited due to overlying bony structures and body habitus. XR/XR thoracic spine 3V IMPRESSION: Mild multilevel degenerative changes in the thoracic spine.
== END 2023-04-29 08:50 | disposition home or self-care (01) ==
LOC: HO.XRAY 08:49
PROVIDERS: PCP Internal Medicine; Visit Provider Anesthesiology
DX: Z96.89 Presence of other specified functional implants (principal); M16.9 Osteoarthritis of hip, unspecified; M46.1 Sacroiliitis, not elsewhere classified; M53.3 Sacrococcygeal disorders, not elsewhere classified
CPT/HCPCS: 72072

== ENCOUNTER 2023-05-18 10:37 | Outpatient (AMB) | payer OTHER, SELFPAY ==
--- NOTE | 2023-05-18 10:42 | A.OFFVIS_ITS ---
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 Pt's reports that patient is forgetful and it has worsened over the 2 years. He is also confused by long instructions. Pt usually likes to play video games, but is having difficulty playing complex video games lately. Denies difficulty driving or repeating same questions over. states that patient still takes care of all financial stuff and is good at it. The lab result reviewed, B12 level was 1377 and vitamin D and TSH was WNL. The BUN and creatitine level was elevated, he is followed by nephrology. Pt has family hx of autism, and thinks that he has autism. He does not care of his basic daily activities, which include checking his blood sugar and insulin injection. Pt's thinks that he has a lack of motivation to do it. Pt's also thinks that patient has been more spaced out since he started get insulin which 2 years ago. The CPAP compliance and therapy response (02/18/23-05/18/23) reviewed. He is on APAP [id number]. The usage days 98% and the average usage hours 9 hrs 50 min. The max pressure was 12.9 and the AHI was 5.8/hr. He sleeps a lot, about 10 hrs, also has been isolated more lately. [facility] Medical History Restless legs syndrome (RLS) Obstructive sleep apnea Chronic pain syndrome Ureteral calculus Fatty liver Gout Kidney stones Depression, major, recurrent Lipid disorder 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, essential [facility] (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 Diabetes 1.5, managed as type 1 Complex regional pain syndrome of both lower extremities Diabetic peripheral neuropathy Spondylosis of lumbar region without myelopathy or radiculopathy Surgical History S/P placement of nerve stimulator Hx of lithotripsy Hx of colonoscopy Family History Other Mental health disorder (Updated 05/18/23 @ 10:46 by Heather Hazel CMA) Housing: Condominium Alcohol intake: never Patient Tobacco Use Status: Never used Tobacco e-Cigarette/Vaping Use: Never Used Second Hand Smoke Exposure: No Current occupational status: disabled Cognitive needs: No Hearing needs: No Vision needs: Yes Review of Systems Const All systems reviewed & are unremarkable except as noted in HPI and below Physical Exam Vital Signs: Last Vital Signs Pulse 88 05/18/23 10:46 BP 106/72 05/18/23 10:46 Pulse Ox 98 05/18/23 10:46 Oxygen Delivery Method Room Air 05/18/23 10:46 Const General: cooperative and no acute distress Nutritional Appearance: obese Limitations: no limitations HEENT Head: Yes normocephalic Ears: hearing grossly normal bilaterally Neck Neck: Yes full ROM and Yes supple Resp Effort & Inspection: normal respiratory effort and able to speak in complete sentences Psych Appearance: grossly normal Mental Status: mental status grossly normal Speech and movement: Normal speech and movement present Affect: normal affect Attitude: cooperative Thought process: Normal thought process present Thought content: Normal thought content present Insight: Good insight present (Psych) Judgement: Good judgement present (Psych) Orientation What is the (year) (season) (date) (day) (month)?: year, season, day and month Where are we (state) (county) (town or city) (hospital) (floor)?: state, county, town or city, hospital/clinic and floor Registration Name of 3 unrelated objects clearly and slowly, then ask patient to repeat all 3 of them. (1st repeat determines score. Make sure they can repeat all three): object 1, object 2 and object 3 Attention & Calculation (CHOOSE ONE) Spell WORLD backwards (DLROW): 4 letters Recall Ask patient to repeat the 3 items from question #3.: object 1, object 2 and object 3 Language Show patient a wristwatch & ask what it is. Repeat for pencil.: watch and pencil Ask the patient to repeat the phrase 'No ifs, ands, or buts' after you.: correct Ask the patient to 'take a piece of paper with their right hand' 'fold paper in half' 'place paper on floor': take paper in right hand, fold paper in half and place paper on floor Print the sentence 'CLOSE YOUR EYES' on a piece. If patient actually closes eyes then score.: followed written direction Give patient a blank piece of paper & ask to write a sentence. Score if it contains a noun & verb.: sentence contains subject and verb Ask patient to copy figure of intersecting pentagons exactly. Score if all 10 angles & 2 intersects are included.: all 10 angles present & 2 are intersected Score Score: 28 Assessment & Plan Assessment & Plan (1) Hypersomnia: Code(s): G47.10 - Hypersomnia, unspecified (2) Forgetfulness: Code(s): R68.89 - Other general symptoms and signs (3) Memory changes: Code(s): R41.3 - Other amnesia (4) Obstructive sleep apnea: Comment: Severe degree of KRISTIN. AHI 47/hr with oxygen jeremiah was 75%. Code(s): G47.33 - Obstructive sleep apnea (adult) (pediatric) Plan Referred patient to neuropsychology evaluation, and it is in processing. Advised patient to check his blood sugar regularly to prevent hypoglycemia. Continue to use APAP [id number]. Advised patient to engage more social and physical activity. Coding Level of Care Code Est Pt Level 4 (21320) Diagnoses Hypersomnia G47.10 Forgetfulness R68.89 Memory changes R41.3 Obstructive sleep apnea G47.33
[2023-05-18 10:46] VITALS: BP 106/72; PULSE 88; O2SAT 98
== END 2023-05-18 11:16 | disposition home or self-care (01) ==
PROVIDERS: PCP Internal Medicine; Visit Provider Nurse Practitioner Family
DX: G47.10 Hypersomnia, unspecified (principal); R68.89 Other general symptoms and signs; R41.3 Other amnesia; G47.33 Obstructive sleep apnea (adult) (pediatric)
CPT/HCPCS: 99214

== ENCOUNTER → 2023-05-18 10:37 | Outpatient (BNVA) | payer OTHER, SELFPAY | PROVIDERS: PCP Internal Medicine; Visit Provider Nurse Practitioner Family | DX: R41.3 Other amnesia (principal); R68.89 Other general symptoms and signs; E55.9 Vitamin D deficiency, unspecified ==

== ENCOUNTER 2023-07-02 09:22 | Outpatient (AMB) | payer OTHER, SELFPAY ==
--- NOTE | 2023-07-02 09:26 | MHC.OFFVIS ---
Intake Intake Visit Reasons: 3m follow up Intake Note: Patient is Present for Telephone Follow Up Urology Med: Tadalafil Antibiotic Allergy: None Blood Thinner: Aspirin Allergies No Known Allergies Allergy (Verified 07/02/23 09:28) HPI HPI Comments History of Present Illness Details Adama is a pleasant male. He is seen for the following urologic conditions - nephrolithiasis - hypocitrauria - erectile dysfunction Telemedicine Evaluation 15 min Consultation CanoP Mariela Video attempted Follow-up for erectile dysfunction Had trialed daily tadalafil 10 mg given metabolic background Some benefit, but not effective for intercourse Background diabetes, obstructive sleep apnea, dyslipidemia, depression, hypertension Continue daily tadalafil 10 mg and add 20 mg on demand Nephrolithiasis Recurrent stone former Intervention - 05/18 right ESWL Indications - potassium citrate 20 mEq b.i.d. Urinalysis - 05/18 24 hour urine shows good volume with high sodium, low citrate - 12/17 good volume, improved sodium, improved citrate, improved pH, does have increased oxalate Imaging - 03/18 CT scan left distal ureter 3 mm stone, 6 mm stone on right side - 04/17 renal ultrasound right side 6 mm stone - 06/17 renal ultrasound no evidence of stone, hematoma on right side post ESWL - 12/17 renal ultrasound no stones - 12/18 renal ultrasound no stones Therapeutic plan - 12 months with imaging [facility] Medical History Restless legs syndrome (RLS) Obstructive sleep apnea Chronic pain syndrome Ureteral calculus Fatty liver Gout Kidney stones Depression, major, recurrent Lipid disorder 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, essential [facility] (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 Diabetes 1.5, managed as type 1 Complex regional pain syndrome of both lower extremities Diabetic peripheral neuropathy Spondylosis of lumbar region without myelopathy or radiculopathy Surgical History S/P placement of nerve stimulator Hx of lithotripsy Hx of colonoscopy Family History Other Mental health disorder Social History (Updated 05/18/23 @ 10:46 by Heather Hazel CMA) Housing: Condominium Alcohol intake: never Patient Tobacco Use Status: Never used Tobacco e-Cigarette/Vaping Use: Never Used Second Hand Smoke Exposure: No Current occupational status: disabled Cognitive needs: No Hearing needs: No Vision needs: Yes Review of Systems Const All systems reviewed & are unremarkable except as noted in HPI and below Reports no additional complaints Resp Reports no additional complaints GI Reports no additional complaints Reports as per HPI Musc Reports no additional complaints Physical Exam Telemedicine evaluation Appropriate responses Regular breathing rate and rhythm HEENT Head: Yes normal to inspection Ears: hearing grossly normal bilaterally Eyes General: appearance normal, both eyes and all related structures Neck Neck: Yes normal visual inspection Chest Chest palpation & inspection: normal inspection of the chest Resp Effort & Inspection: normal respiratory effort and able to speak in complete sentences Assessment & Plan Assessment & Plan (1) Erectile dysfunction associated with type 2 diabetes mellitus: Code(s): E11.69 - Type 2 diabetes mellitus with other specified complication; N52.1 - Erectile dysfunction due to diseases classified elsewhere Plan Three month follow-up tele Medications: New tadalafil On demand medication take 60 minutes before intended activity 20 mg PO ONCE PRN 30 tabs 0RF sexual activity 30 days E11.69 - Type 2 diabetes mellitus with other specified complication, N52.1 - Erectile dysfunction due to diseases classified elsewhere Refilled tadalafil 10 mg PO DAILY 90 tabs 0RF sexual activity 90 days E11.69 - Type 2 diabetes mellitus with other specified complication, N52.1 - Erectile dysfunction due to diseases classified elsewhere Patient Instructions: Imaging studies, laboratory and physical exam results were discussed and reviewed in detail. No major barriers to patient understanding were identified. An opportunity to ask questions regarding the treatment plan was provided. All questions were answered. The patient expressed understanding and agreement with the above treatment plan. The patient is aware they should contact our office by phone for worsening of their current condition or the appearance of new urologic symptoms. Compliance is encouraged with any medications and followup testing that is ordered. It is a privilege to participate in the urologic care of your patient. If you have any questions or concerns regarding treatment for the above conditions, or other urologic issues, please do not hesitate to contact me. The office telephone contact is [phone]. This note is constructed using voice recognition software. While every effort has been made to ensure accuracy fish header errors may have been included. Yours sincerely, Dr Sylvester Thompson MD, [facility] - Urology Providers of Expert, Compassionate Care for the Genitourinary System Telehealth Telehealth Location of provider rendering services: practice address Location of patient: address on file Patient Identification confirmed using: Name, : Yes Telehealth method: video Patient verbally consented to treatment: Yes Patient verbally consented to billing insurance company: Yes Patient informed of any privacy concerns related to visit: Yes Coding Level of Care Code Tele Est Pt Level 4 (74463) Diagnoses Erectile dysfunction associated with type 2 diabetes mellitus E11.69; N52.1
== END 2023-07-02 09:47 | disposition home or self-care (01) ==
LOC: HO.HUSH 09:22
PROVIDERS: PCP Internal Medicine; Visit Provider Urology
DX: E11.69 Type 2 diabetes mellitus with other specified complication (principal); N52.1 Erectile dysfunction due to diseases classified elsewhere
CPT/HCPCS: 99214

== ENCOUNTER → 2023-07-02 09:22 | Outpatient (BNVA) | payer OTHER, SELFPAY | PROVIDERS: PCP Internal Medicine; Visit Provider Urology ==

== ENCOUNTER 2023-07-02 10:20 | Outpatient (REF) | payer OTHER, SELFPAY ==
[2023-07-02 13:19] LABS: MANUAL DIFF FLAG NO
[2023-07-02 13:56] LABS: Basophils Percent Auto 0.6 % (0-2); Eosinophils Absolute Auto 0.1 X10*3/uL (0.0-0.4); Hematocrit 43.7 % (42.0-52.0); Hemoglobin 14.8 g/dl (14.0-18.0); Imm Gran Abs Auto 0.01 X10*3/uL (0.00-0.03); Imm Gran Pct Auto 0.2 % (0.0-0.4); Lymphocytes Absolute Auto 0.7 X10*3/uL (1.2-4.9); Lymphocytes Percent Auto 14.3 % (20-40); Mean Corpuscular HGB Conc 33.9 g/dl (31.0-36.0); Mean Corpuscular Hemoglobin 30.9 pg (27.0-33.0); Mean Corpuscular Volume 91.2 fL (80.0-98.0); Mean Platelet Volume 11.5 fL (9.4-12.4); Monocytes Absolute Auto 0.3 X10*3/uL (0.1-1.2); Monocytes Percent Auto 6.2 % (2-11); Neutrophils Absolute Auto 3.6 x10*3/uL (2.0-8.3); Neutrophils Percent Auto 75.7 % (45-73); Platelet Count 187 X10*3/uL (160-400); Red Blood Count 4.79 X10*6/uL (4.60-5.80); White Blood Count 4.7 X10*3/uL (4.8-10.8)
[2023-07-02 14:21] LABS: Alanine Aminotransferase 25 U/L (0-40); Albumin Level 4.4 g/dL (3.5-5.0); Alkaline Phosphatase 87 U/L (39-117); Anion Gap 13 (12-20); Aspartate Amino Transferase 24 U/L (5-37); Bilirubin Total 0.6 mg/dL (0.0-1.0); Blood Urea Nitrogen 28 mg/dL (9-16); Calcium 9.9 mg/dL (8.4-10.2); Carbon Dioxide 27 mmol/L (22-29); Chloride 104 mmol/L (96-108); Estimated Glomerular Filt Rate 46; Glucose Random 102 mg/dL (60-115); Potassium 4.5 mmol/L (3.3-5.1); Sodium 139 mmol/L (135-145); Total Protein 7.4 g/dL (6.5-8.0)
== END 2023-07-02 10:21 | disposition home or self-care (01) ==
LOC: HO.HMGCLDS 10:20
PROVIDERS: PCP Internal Medicine; Visit Provider Internal Medicine
DX: E11.42 Type 2 diabetes mellitus with diabetic polyneuropathy (principal); E11.21 Type 2 diabetes mellitus with diabetic nephropathy; F33.9 Major depressive disorder, recurrent, unspecified; E78.9 Disorder of lipoprotein metabolism, unspecified; G47.33 Obstructive sleep apnea (adult) (pediatric); D64.9 Anemia, unspecified; R06.02 Shortness of breath; E66.01 Morbid (severe) obesity due to excess calories; Z79.4 Long term (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
CPT/HCPCS: 36415; 80053; 82043; 82570; 83036; 85025

== ENCOUNTER 2023-07-07 10:28 | Outpatient (AMB) | payer OTHER, SELFPAY ==
[2023-07-07 10:36] VITALS: BP 126/70; PULSE 108; O2SAT 98; BMI 41.1
--- NOTE | 2023-07-07 10:36 | A.OFFPC_ITS ---
Vital Signs 07/07/23 10:36 Height 6 ft Weight 303 lb 2 oz BMI 41.1 BP 126/70 Blood Pressure Location Lt brachial Position Sitting Pulse 108 H Pulse Source Pulse Oximeter Pulse Oximetry (%) 98 Oxygen Delivery Method Room Air Intake Visit Reasons: PE Allergies No Known Allergies Allergy (Verified 07/07/23 10:38) Medication List - Last Reconciled 07/07/23 by Gabby Kelly MD allopurinol 300 mg PO DAILY amlodipine 5 mg PO DAILY aspirin (Erick Low Dose Aspirin) 81 mg PO DAILY 90 days atorvastatin 20 mg PO DAILY 90 days blood-glucose meter (GO-SIM Lite Meter kit) As directed bupropion HCl 300 mg PO QAM duloxetine 60 mg PO BEDTIME flash glucose scanning reader (GO-SIM Sonido 2 [place]) As directed flash glucose sensor (GO-SIM Sonido 2 Sensor kit) As directed furosemide 20 mg PO QAM 90 days gabapentin 800 mg PO TID lancets (Next[employer]ityle Lancets) TID PRN Lantus Solostar U-100 Insulin (insulin glargine) 50 units (0.5 mL) subcut QPM 90 days NS losartan 100 mg PO DAILY pen needle, diabetic (AboutTime Pen Needle) As directed penicillin V potassium 250 mg PO BID 90 days potassium citrate ER 20 mEq (2 x 10 mEq (1,080 mg)) PO BID 90 days spironolactone 25 mg PO DAILY 90 days tadalafil 10 mg PO DAILY 90 days tadalafil 20 mg PO ONCE PRN 30 days trazodone 100 mg PO BEDTIME Tobacco use date assessed: 07/07/23 Dental Screening Dental Screen Date: 07/07/23 Did you have a dental visit in the last 12 months?: Yes Did you have a dental problem in the last 6 months where you did not have access to dental care?: No Was dental information given to patient?: Patient has dentist HPI PE HPI Details 57-year-old gentleman came today physica l exam Colonoscopy at the age of [address] 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 I have created a new referral for to see Nephrology at [facility] His hemoglobin A1c is 5.5 I am stopping his Actos he may continue with long- acting insulin 50 units Other providers patient is seeing our Pain Management [facility] Dr. Gera Garsia neurology Dr. 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 Diabetes 1.5, managed as type 1 Complex regional pain syndrome of both lower extremities Diabetic peripheral neuropathy Spondylosis of lumbar region without myelopathy or radiculopathy Surgical History S/P placement of nerve stimulator Hx of lithotripsy Hx of colonoscopy Family History Other Mental health disorder Social History Housing: Condominium Alcohol intake: never Patient Tobacco Use Status: Never used Tobacco e-Cigarette/Vaping Use: Never Used Second Hand Smoke Exposure: No Current occupational status: disabled Cognitive needs: No Hearing needs: No Vision needs: Yes Questionnaire PHQ-9 Over the last 2 weeks, how often have you been bothered by any of the following problems? 1. Little interest or pleasure in doing things: not at all 2. Feeling down, depressed, or hopeless: not at all 3. Trouble falling or staying asleep, or sleeping too much: not at all 4. Feeling tired or having little energy: not at all 5. Poor appetite or overeating: not at all 6. Feeling bad about yourself - or that you are a failure or have let yourself or your family down: not at all 7. Trouble concentrating on things, such as reading the newspaper or watching television: not at all 8. Moving or speaking so slowly that other people could have noticed. Or the opposite - being so fidgety or restless that you have been moving around a lot more than usual: not at all 9. Thoughts that you would be better off or of hurting yourself in some way: not at all Total score: 0 Depression Screening Interpretation: Negative Depression Screening Done: Yes 46535 - PHQ-9 Billing: Yes Source: Developed by Drs. Ken Padilla, Vandana Magallon, Janusz Barlow and colleagues, with an educational nick from [employer]. Thrive Questionnaire Date Thrive assessed: 07/07/23 I am a: Patient What is your living situation today?: I have a steady place to live Within the past 12 months, did the food you bought not last and you didn't have the money to get more?: Never true Within the past 12 months, did you worry whether your food would run out before you got money to buy more?: Never true Do you have trouble paying for medicines?: No Do you have trouble getting transportation to medical appointments?: No Do you have trouble paying your heating and electricity bill?: No Do you have trouble taking care of your child, family member or friend?: No Do you have trouble with day-to-day activities such as bathing, preparing meals, shopping, managing finances, etc.?: No Are you currently unemployed and looking for a job?: No Are you interested in more education?: No Please select the resources that you would like help with: None Currently or been in a relationship where the following occur: no concerns reported AUDIT C Alcohol Use Questionnaire (AUDIT-C) 1. How often do you have a drink containing alcohol?: Never 3. How often do you have six or more drinks on one occasion?: Never Total Score: 0 Score Reviewed/Action Taken: Yes CRISTOBAL-7 AMB Questionnaire CRISTOBAL-7 Date CRISTOBAL - 7 assessed: 07/07/23 Feeling nervous, anxious, or on edge: 0 = Not at all Not being able to stop or control worryin = Not at all Worrying too much about different things: 0 = Not at all Trouble relaxin = Not at all Being so restless that it is hard to sit still: 0 = Not at all Becoming easily annoyed or irritable: 0 = Not at all Feeling afraid as if something awful might happen: 0 = Not at all Total CRISTOBAL-7 score (0-4 normal; 5-9 mild; 10-14 moderate; 15-21 severe): 0 Source: Developed by Vandana Barroso.W. Naun, Janusz Barlow and colleagues, with an educational nick from [employer]. CRISTOBAL-7 Assessment Billing CRISTOBAL-7 Assessment Tool: CRISTOBAL-7 Assessment 82183 Review of Systems Const Denies chills, Denies fever(s) and Denies headache(s) Eyes Denies blurry vision ENT Denies headache(s), Denies nasal discharge, Denies nasal obstruction, Denies odynophagia and Denies sinus pain Card Denies chest pain at rest and Denies chest pain with activity Resp Denies cough and Denies hemoptysis GI Denies odynophagia and Denies hematemesis Reports as per HPI Musc Denies abnormal gait Skin/Breast Reports as per HPI Neuro Denies Neuro-related abnormal movements, Denies Abnormal speech present, Denies abnormal gait and Denies headache(s) Psych Denies mood swings and Denies paranoia Endo Reports as per HPI Ralf/Lymph Reports as per HPI Aller/Immun Reports as per HPI Physical exam (Primary Care) Vital Signs: Last Vital Signs Pulse 108 H 07/07/23 10:36 BP 126/70 07/07/23 10:36 Pulse Ox 98 07/07/23 10:36 Oxygen Delivery Method Room Air 07/07/23 10:36 BMI result Body Mass Index 41.1 Tobacco/Smoking Status: Tobacco use Status Tobacco use date assessed 07/07/23 07/07/23 10:39 Patient Tobacco Use Status Never used Tobacco 07/07/23 10:39 e-Cigarette/Vaping Use Never Used 07/07/23 10:39 PHQ-9: PHQ-9 Score PHQ-9: Total score 0 07/07/23 10:58 Depression Screening Interpretation: Negative Thrive Assessment: Date of Thrive Assessment Date Thrive assessed 07/07/23 07/07/23 10:55 Currently or been in a relationship where the following occur: no concerns reported Const General: cooperative, comfortable and no acute distress Orientation/consciousness: patient oriented x3 HENMT Head: Yes normocephalic and Yes atraumatic Eyes General: appearance normal, both eyes and all related structures Pupils: Equal, round and reactive pupils present EOM: EOMs intact bilaterally Neck Neck: Yes supple and No lymphadenopathy Thyroid: Thyroid normal Lymphatic: no lymphadenopathy noted Resp Effort & Inspection: normal respiratory effort and able to speak in complete sentences Auscultation: clear to auscultation bilaterally Cardio Heart sounds: S1 normal heart sound present and S2 normal heart sound present GI Palpation (GI): Soft to palpation Auscultation: normal bowel sounds General: Yes no CVA tenderness Back/Spine/Pelvis Back: no CVA tenderness Skin General skin exam: elasticity normal and turgor normal Neuro General: patient oriented x3 Cranial nerves: Yes Equal, round and reactive pupils present Speech: No Abnormal speech present Coordination: Romberg test negative Extrem General: Yes normal exam except as noted and No edema Assessment and Plan Assessment & Plan (1) Encounter for general adult medical examination with abnormal findings: Code(s): Z00.01 - Encounter for general adult medical examination with abnormal findings (2) Morbid obesity due to excess calories: Code(s): E66.01 - Morbid (severe) obesity due to excess calories (3) Diabetic nephropathy: Code(s): E11.21 - Type 2 diabetes mellitus with diabetic nephropathy Qualifiers: Diabetes mellitus type: due to underlying condition Qualified Code(s): E08.21 - Diabetes mellitus due to underlying condition with diabetic nephropathy (4) Erectile dysfunction associated with type 2 diabetes mellitus: Code(s): E11.69 - Type 2 diabetes mellitus with other specified complication; N52.1 - Erectile dysfunction due to diseases classified elsewhere (5) Hypersomnia: Code(s): G47.10 - Hypersomnia, unspecified (6) Vitamin D deficiency: Code(s): E55.9 - Vitamin D deficiency, unspecified (7) Memory changes: Code(s): R41.3 - Other amnesia (8) Sacroiliitis: Code(s): M46.1 - Sacroiliitis, not elsewhere classified (9) Restless legs syndrome (RLS): Code(s): G25.81 - Restless legs syndrome (10) Obstructive sleep apnea: Comment: Severe degree of KRISTIN. AHI 47/hr with oxygen jeremiah was 75%. Code(s): G47.33 - Obstructive sleep apnea (adult) (pediatric) (11) Depression, major, recurrent: Code(s): F33.9 - Major depressive disorder, recurrent, unspecified Qualifiers: Active/Remission status: currently active Major depression episode severity: moderate Qualified Code(s): F33.1 - Major depressive disorder, recurrent, moderate (12) Lipid disorder: Code(s): E78.9 - Disorder of lipoprotein metabolism, unspecified (13) 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, essential: Code(s): I10 - Essential (primary) hypertension (14) jail (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: Code(s): Z79.4 - long term care pharmacist (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 (15) Diabetes 1.5, managed as type 1: Code(s): E13.9 - Other specified diabetes mellitus without complications (16) Complex regional pain syndrome of both lower extremities: Code(s): G90.523 - Complex regional pain syndrome I of lower limb, bilateral Qualifiers: Complex regional pain syndrome type: type I Qualified Code(s): G90.523 - Complex regional pain syndrome I of lower limb, bilateral (17) Diabetic peripheral neuropathy: Code(s): E11.42 - Type 2 diabetes mellitus with diabetic polyneuropathy (18) Chronic kidney disease: Code(s): N18.9 - Chronic kidney disease, unspecified Qualifiers: Chronic kidney disease stage: stage 3 (moderate) Chronic kidney disease stage 3 subtype: unspecified whether 3a or 3b Qualified Code(s): N18.30 - Chronic kidney disease, stage 3 unspecified Plan 57-year-old gentleman came today physical exam Colonoscopy at the age of [address] 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 I have created a new referral for to see Nephrology at [facility] His hemoglobin A1c is 5.5 I am stopping his Actos he may continue with long- acting insulin 50 units Other providers patient is seeing our Pain Management [facility] Dr. Gera Garsia neurology Dr. Thompson urology Psychiatry BMI is elevated above 40 patient is trying to lose weight Medication list reviewed Orders: Orders Complete Blood Count Auto Diff Today E11.21 - Type 2 diabetes mellitus with diabetic nephropathy, E11.42 - Type 2 diabetes mellitus with diabetic polyneuropathy, E11.69 - Type 2 diabetes mellitus with other specified complication, E13.9 - Other specified diabetes mellitus without complications, E55.9 - Vitamin D deficiency, unspecified, E66.01 - Morbid (severe) obesity due to excess calories, E78.9 - Disorder of lipoprotein metabolism, unspecified, F33.9 - Major depressive disorder, recurrent, unspecified, G25.81 - Restless legs syndrome, G47.10 - Hypersomnia, unspecified, G47.33 - Obstructive sleep apnea (adult) (pediatric), G90.523 - Complex regional pain syndrome I of lower limb, bilateral, I10 - Essential (primary) hypertension, M46.1 - Sacroiliitis, not elsewhere classified, N52.1 - Erectile dysfunction due to diseases classified elsewhere, R41.3 - Other amnesia, Z00.01 - Encounter for general adult medical examination with abnormal findings, Z79.4 - long term care pharmacist (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 Hemoglobin A1c Today E11.21 - Type 2 diabetes mellitus with diabetic nephropathy, E11.42 - Type 2 diabetes mellitus with diabetic polyneuropathy, E11.69 - Type 2 diabetes mellitus with other specified complication, E13.9 - Other specified diabetes mellitus without complications, E55.9 - Vitamin D deficiency, unspecified, E66.01 - Morbid (severe) obesity due to excess calories, E78.9 - Disorder of lipoprotein metabolism, unspecified, F33.9 - Major depressive disorder, recurrent, unspecified, G25.81 - Restless legs syndrome, G47.10 - Hypersomnia, unspecified, G47.33 - Obstructive sleep apnea (adult) (pediatric), G90.523 - Complex regional pain syndrome I of lower limb, bilateral, I10 - Essential (primary) hypertension, M46.1 - Sacroiliitis, not elsewhere classified, N52.1 - Erectile dysfunction due to diseases classified elsewhere, R41.3 - Other amnesia, Z00.01 - Encounter for general adult medical examination with abnormal findings, Z79.4 - jail (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 Comprehensive Met. Panel Today E11.21 - Type 2 diabetes mellitus with diabetic nephropathy, E11.42 - Type 2 diabetes mellitus with diabetic polyneuropathy, E11.69 - Type 2 diabetes mellitus with other specified complication, E13.9 - Other specified diabetes mellitus without complications, E55.9 - Vitamin D deficiency, unspecified, E66.01 - Morbid (severe) obesity due to excess calories, E78.9 - Disorder of lipoprotein metabolism, unspecified, F33.9 - Major depressive disorder, recurrent, unspecified, G25.81 - Restless legs syndrome, G47.10 - Hypersomnia, unspecified, G47.33 - Obstructive sleep apnea (adult) (pediatric), G90.523 - Complex regional pain syndrome I of lower limb, bilateral, I10 - Essential (primary) hypertension, M46.1 - Sacroiliitis, not elsewhere classified, N52.1 - Erectile dysfunction due to diseases classified elsewhere, R41.3 - Other amnesia, Z00.01 - Encounter for general adult medical examination with abnormal findings, Z79.4 - jail (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 Microalbumin, Random (w Creat) Today E11.21 - Type 2 diabetes mellitus with diabetic nephropathy, E11.42 - Type 2 diabetes mellitus with diabetic polyneuropathy, E11.69 - Type 2 diabetes mellitus with other specified complication, E13.9 - Other specified diabetes mellitus without complications, E55.9 - Vitamin D deficiency, unspecified, E66.01 - Morbid (severe) obesity due to excess calories, E78.9 - Disorder of lipoprotein metabolism, unspecified, F33.9 - Major depressive disorder, recurrent, unspecified, G25.81 - Restless legs syndrome, G47.10 - Hypersomnia, unspecified, G47.33 - Obstructive sleep apnea (adult) (pediatric), G90.523 - Complex regional pain syndrome I of lower limb, bilateral, I10 - Essential (primary) hypertension, M46.1 - Sacroiliitis, not elsewhere classified, N52.1 - Erectile dysfunction due to diseases classified elsewhere, R41.3 - Other amnesia, Z00.01 - Encounter for general adult medical examination with abnormal findings, Z79.4 - long term care pharmacist (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 Referrals Nephrology Referral E11.21 - Type 2 diabetes mellitus with diabetic nephropathy, N18.9 - Chronic kidney disease, unspecified Coding Level of Care Code Est [facility] Care 40-64y([id number]) Diagnoses Encounter for general adult medical examination with abnormal findings Z00.01 Morbid obesity due to excess calories E66.01 Diabetic nephropathy associated with diabetes mellitus due to underlying condition E08.21 Diabetes mellitus type: due to underlying condition Erectile dysfunction associated with type 2 diabetes mellitus E11.69; N52.1 Hypersomnia G47.10 Vitamin D deficiency E55.9 Memory changes R41.3 Sacroiliitis M46.1 Restless legs syndrome (RLS) G25.81 Obstructive sleep apnea G47.33 Moderate episode of recurrent major depressive disorder F33.1 Active/Remission status: currently active Major depression episode severity: moderate Lipid disorder E78.9 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, essential I10 long term care pharmacist (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 Z79.4 Diabetes 1.5, managed as type 1 E13.9 Complex regional pain syndrome type 1 of both lower extremities G90.523 Complex regional pain syndrome type: type I Diabetic peripheral neuropathy E11.42 Stage 3 chronic kidney disease, unspecified whether stage 3a or 3b CKD N18.30 Chronic kidney disease stage: stage 3 (moderate) Chronic kidney disease stage 3 subtype: unspecified whether 3a or 3b Additional Codes CRISTOBAL-7 Assessment Billing - CRISTOBAL-7 Assessment Tool: CRISTOBAL-7 Assessment [id number] ([id number])
== END 2023-07-07 11:50 | disposition home or self-care (01) ==
PROVIDERS: PCP Internal Medicine; Visit Provider Internal Medicine
DX: Z00.00 Encounter for general adult medical examination without abnormal findings (principal); E66.01 Morbid (severe) obesity due to excess calories; Z68.41 Body mass index [BMI] 40.0-44.9, adult; E11.42 Type 2 diabetes mellitus with diabetic polyneuropathy; G47.10 Hypersomnia, unspecified; E55.9 Vitamin D deficiency, unspecified; R41.3 Other amnesia; G25.81 Restless legs syndrome; G47.33 Obstructive sleep apnea (adult) (pediatric); E78.9 Disorder of lipoprotein metabolism, unspecified; I10 Essential (primary) hypertension; G90.523 Complex regional pain syndrome I of lower limb, bilateral
CPT/HCPCS: 99396

== ENCOUNTER 2023-07-12 14:20 | Outpatient (REF) | payer OTHER, SELFPAY ==
--- NOTE | 2023-07-12 15:02 | PFT_ITS ---
Spirometry [FVC 89%, FEV1 90%, FEV1/FVC= 77 FEF 25-75 = 93 % Lung Volumes [TLC = 79% RV = 70%] Diffusion Capacity [] 90%, DLCO/VL =101 % Methacholine Challenge [] Flow Volume Loops [THE APPEARANCE IS NORMAL] MVV [] 96 % MIP/MEP(Max inspiratory pressure/Max expiratory pressure) [] 6 Minute Walk Test [] ABG ONCE Interpretation ; NORMAL PULMONARY FUNCTION TEST. THERE IS NO EVIDENCE OF OBSTRUCTIVE OR RESTRICTIVE PULMONARY DISORDER. SLIGHTLY REDUCED TLC AND RESIDUAL VOLUME PROBABLY RELATED TO OBESITY. MTDD
== END 2023-07-12 14:21 | disposition home or self-care (01) ==
LOC: HO.RESP 14:20
PROVIDERS: PCP Internal Medicine; Visit Provider Internal Medicine
DX: R06.02 Shortness of breath (principal)
CPT/HCPCS: 94010; 94727; 94729

== ENCOUNTER → 2023-07-12 15:02 | Outpatient (BNV) | payer OTHER, SELFPAY | PROVIDERS: PCP Internal Medicine; Visit Provider Internal Medicine | DX: R06.02 Shortness of breath (principal) | CPT/HCPCS: 94060; 94727; 94729 ==

== ENCOUNTER 2023-07-20 15:14 | Outpatient (AMB) | payer OTHER, SELFPAY ==
--- NOTE | 2023-07-20 15:18 | HO.NEPHOV_ITS ---
HPI HPI Comments History of Present Illness Details 58-year-old man with a history of diabet es mellitus obesity and obstructive sleep apnea with history of nephrolithiasis is here for evaluation of renal function He is being followed by Urology. 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 Diabetes 1.5, managed as type 1 Complex regional pain syndrome of both lower extremities Diabetic peripheral neuropathy Spondylosis of lumbar region without myelopathy or radiculopathy Surgical History S/P placement of nerve stimulator Hx of lithotripsy Hx of colonoscopy Family History Other Mental health disorder Social History Housing: Condominium Alcohol intake: never Patient Tobacco Use Status: Never used Tobacco e-Cigarette/Vaping Use: Never Used Second Hand Smoke Exposure: No Current occupational status: disabled Cognitive needs: No Hearing needs: No Vision needs: Yes Vital Signs 07/20/23 15:19 Height 6 ft Weight 299 lb BMI 40.5 BP 112/72 Blood Pressure Location Lt brachial Position Sitting Pulse 115 H Pulse Source Pulse Oximeter Pulse Oximetry (%) 99 Oxygen Delivery Method Room Air Intake Medication List - Last Reconciled 07/20/23 by Abilio Garsia MD allopurinol 300 mg PO DAILY amlodipine 5 mg PO DAILY aspirin (Erick Low Dose Aspirin) 81 mg PO DAILY 90 days atorvastatin 20 mg PO DAILY 90 days blood-glucose meter ([employer] Lite Meter kit) As directed bupropion HCl 300 mg PO QAM duloxetine 60 mg PO BEDTIME flash glucose scanning reader ([employer] Sonido 2 [place]) As directed flash glucose sensor ([employer] Sonido 2 Sensor kit) As directed furosemide 20 mg PO QAM lancets ([employer] Lancets) TID PRN Lantus Solostar U-100 Insulin (insulin glargine) 50 units (0.5 mL) subcut QPM 90 days NS losartan 100 mg PO DAILY pen needle, diabetic (AboutTime Pen Needle) As directed penicillin V potassium 250 mg PO BID 90 days potassium citrate ER 20 mEq (2 x 10 mEq (1,080 mg)) PO BID 90 days tadalafil 10 mg PO DAILY 90 days tadalafil 20 mg PO ONCE PRN 30 days trazodone 100 mg PO BEDTIME Physical Exam Vital Signs: Last Vital Signs Pulse 115 H 07/20/23 15:19 BP 112/72 07/20/23 15:19 Pulse Ox 99 07/20/23 15:19 Oxygen Delivery Method Room Air 07/20/23 15:19 BMI result Body Mass Index 40.5 Const General: comfortable Nutritional Appearance: well nourished Orientation/consciousness: patient oriented x3 HEENT Head: No normal to inspection Mouth: moist mucous membranes Neck Neck: Yes supple and Yes no JVD Resp Auscultation: clear to auscultation bilaterally, no rales and rub present Cardio Jugular venous distension: no JVD Palpation: no palpable S3 and no palpable S4 Heart sounds: no rubs GI Palpation (GI): Soft to palpation and nontender Percussion: No Fluid wave present General: Yes no CVA tenderness Back/Spine/Pelvis Back: no CVA tenderness Skin General skin exam: no rashes or lesions noted Neuro General: patient oriented x3 Extrem General: Yes no pedal edema and No clubbing Assessment & Plan Assessment & Plan (1) Chronic kidney disease: Code(s): N18.9 - Chronic kidney disease, unspecified Qualifiers: Chronic kidney disease stage: stage 3 (moderate) Chronic kidney disease stage 3 subtype: unspecified whether 3a or 3b Qualified Code(s): N18.30 - Chronic kidney disease, stage 3 unspecified Plan 56-year-old man with hypertension CKD and nephrolithiasis. Given the history of nephrolithiasis he will benefit from a thiazide diuretic. I will discontinue furosemide and switch spironolactone to Aldactazide. The meantime encouraged him to stay on low-sodium diet He should avoid salt substitute. We will monitor serum potassium closely. Encouraged him to use CPAP regularly. He continue to avoid nephrotoxic agents including NSAIDs. Repeat lab work ordered prior to next visit Orders: Orders Electrolytes 07/20/23 N18.9 - Chronic kidney disease, unspecified Electrolytes 3 Months N18.9 - Chronic kidney disease, unspecified Blood Urea Nitrogen 3 Months N18.9 - Chronic kidney disease, unspecified Creatinine 3 Months N18.9 - Chronic kidney disease, unspecified Medications: New spironolacton-hydrochlorothiaz 25-25 mg 1 tab PO DAILY 30 tabs 3RF Discontinued spironolactone Discontinued Reason: Doctor's Order 25 mg PO DAILY 90 days 90 tabs 0RF I10 - Essential (primary) hypertension furosemide Discontinued Reason: Doctor's Order 20 mg PO QAM Coding Level of Care Code Est Pt Level 4 (68300) Diagnoses Stage 3 chronic kidney disease, unspecified whether stage 3a or 3b CKD N18.30 Chronic kidney disease stage: stage 3 (moderate) Chronic kidney disease stage 3 subtype: unspecified whether 3a or 3b Results Reviewed Nephrology Results: Hgb 14.8 g/dl (14.0-18.0) 07/02/23 WBC 4.7 X10*3/uL (4.8-10.8) L 07/02/23 Plt Count 187 X10*3/uL (160-400) 07/02/23 Sodium 139 mmol/L (135-145) 07/02/23 Potassium 4.5 mmol/L (3.3-5.1) 07/02/23 Chloride 104 mmol/L (96-108) 07/02/23 Carbon Dioxide 27 mmol/L (22-29) 07/02/23 BUN 28 mg/dL (9-16) H 07/02/23 Creatinine 1.56 mg/dL (0.5-1.4) H 07/02/23 Calcium 9.9 mg/dL (8.4-10.2) 07/02/23 Urine Creatinine 104.60 mg/dL 07/02/23
[2023-07-20 15:19] VITALS: BP 112/72; PULSE 115; O2SAT 99; BMI 40.5
== END 2023-07-20 15:41 | disposition home or self-care (01) ==
PROVIDERS: PCP Internal Medicine; Visit Provider Internal Medicine Hypertension Specialist
DX: N18.30 Chronic kidney disease, stage 3 unspecified (principal)
CPT/HCPCS: 99214

== ENCOUNTER → 2023-07-20 15:14 | Outpatient (BNVA) | payer OTHER, SELFPAY | PROVIDERS: PCP Internal Medicine; Visit Provider Internal Medicine Hypertension Specialist ==

== ENCOUNTER 2023-08-16 11:45 | Outpatient (REF) | payer OTHER, SELFPAY ==
--- NOTE | ~2023-08-16 | XR_ITS ---
EXAMINATION: XR CERVICAL SPINE XR THORACIC SPINE CLINICAL INFORMATION: Neck pain, mid back pain. COMPARISON: Thoracic spine 05/04/2023, chest of 03/10/2020, CT abdomen and pelvis of 03/22/2021, right hip 12/23/2020, MRI lumbar spine 04/04/2020, x-rays lumbar spine 01/11/2021. TECHNIQUE: Three views of the cervical spine. Four views of the thoracic spine. FINDINGS: CERVICAL SPINE: Straightening of the normal cervical lordosis. Moderate multilevel cervical spondylosis with loss of disc space height at C4-C5 and C5-C6. C6-C7 obscured by overlying soft tissues. THORACIC SPINE: Lung volumes are low. Visualization substantially limited due to body habitus. Mild multilevel degenerative changes in the thoracic spine. Minimal loss of height of a mid to lower thoracic vertebral body. Visualization is limited due to overlying soft tissues. Redemonstration of 2 spinal stimulator leads projecting over the lower thoracic spinal canal. XR/XR thoracic spine 2V IMPRESSION: 1. Moderate multilevel cervical spondylosis with loss of disc space height at C4-C5, and C5-C6. 2. Mild multilevel degenerative changes in the thoracic spine.
--- NOTE | ~2023-08-16 | XR_ITS ---
EXAMINATION: XR CERVICAL SPINE XR THORACIC SPINE CLINICAL INFORMATION: Neck pain, mid back pain. COMPARISON: Thoracic spine 05/04/2023, chest of 03/10/2020, CT abdomen and pelvis of 03/22/2021, right hip 12/23/2020, MRI lumbar spine 04/04/2020, x-rays lumbar spine 01/11/2021. TECHNIQUE: Three views of the cervical spine. Four views of the thoracic spine. FINDINGS: CERVICAL SPINE: Straightening of the normal cervical lordosis. Moderate multilevel cervical spondylosis with loss of disc space height at C4-C5 and C5-C6. C6-C7 obscured by overlying soft tissues. THORACIC SPINE: Lung volumes are low. Visualization substantially limited due to body habitus. Mild multilevel degenerative changes in the thoracic spine. Minimal loss of height of a mid to lower thoracic vertebral body. Visualization is limited due to overlying soft tissues. Redemonstration of 2 spinal stimulator leads projecting over the lower thoracic spinal canal. XR/XR cervical spine 2V IMPRESSION: 1. Moderate multilevel cervical spondylosis with loss of disc space height at C4-C5, and C5-C6. 2. Mild multilevel degenerative changes in the thoracic spine.
== END 2023-08-16 11:46 | disposition home or self-care (01) ==
LOC: HO.XRAY 11:45
PROVIDERS: Visit Provider Chiropractor
DX: M54.2 Cervicalgia (principal); M54.6 Pain in thoracic spine
CPT/HCPCS: 72040; 72070

== ENCOUNTER 2023-08-24 10:19 | Outpatient (REF) | payer OTHER, SELFPAY ==
--- NOTE | ~2023-08-24 | XR_ITS ---
EXAMINATION: XR LUMBOSACRAL SPINE CLINICAL INFORMATION: Reason for Exam LOW BACK PAIN COMPARISON: Lumbar spine radiographs 01/12/2020 TECHNIQUE: 2 views of the lumbar spine FINDINGS: 5 nonrib-bearing lumbar-type vertebral bodies. Vertebral body heights are maintained. Dextroconvex curvature of the lumbar spine. Similar mild multilevel degenerative disc disease with loss of disc space height and facet arthropathy. Right lower quadrant similar device leads terminating outside of the field of view. XR/XR lumbar spine 2-3V IMPRESSION: 1. Dextroconvex curvature of the lumbar spine. 2. Similar mild multilevel degenerative disc disease with loss of disc space height and facet arthropathy.
== END 2023-08-24 10:20 | disposition home or self-care (01) ==
LOC: HO.XRAY 10:19
PROVIDERS: PCP Internal Medicine; Visit Provider Chiropractor
DX: M54.50 Low back pain, unspecified (principal)
CPT/HCPCS: 72100

== ENCOUNTER 2023-09-24 09:25 | Outpatient (AMB) | payer OTHER, SELFPAY ==
[2023-09-24 09:38] VITALS: BP 112/76; PULSE 102; O2SAT 96; BMI 39.8
--- NOTE | 2023-09-24 09:38 | A.OFFPC_ITS ---
Vital Signs 09/24/23 09:38 Height 6 ft Weight 293 lb 4 oz BMI 39.8 BP 112/76 Blood Pressure Location Rt brachial Position Sitting Pulse 102 H Pulse Source Pulse Oximeter Pulse Oximetry (%) 96 Oxygen Delivery Method Room Air Intake Visit Reasons: 3 Month F/u~ Allergies No Known Allergies Allergy (Verified 09/24/23 09:39) Medication List - Last Reconciled 09/24/23 by Gabby Kelly MD allopurinol 300 mg PO DAILY amlodipine 5 mg PO DAILY aspirin (Erick Low Dose Aspirin) 81 mg PO DAILY 90 days atorvastatin 20 mg PO DAILY 90 days blood-glucose meter ([employer] Lite Meter kit) As directed bupropion HCl 300 mg PO QAM duloxetine 60 mg PO BEDTIME flash glucose scanning reader ([employer] Sonido 2 [place]) As directed flash glucose sensor ([employer] Sonido 2 Sensor kit) As directed lancets ([employer] Lancets) TID PRN Lantus Solostar U-100 Insulin (insulin glargine) 50 units (0.5 mL) subcut QPM 90 days NS losartan 100 mg PO DAILY pen needle, diabetic ([employer] Pen Needle) As directed penicillin V potassium 250 mg PO BID 90 days potassium citrate ER 20 mEq (2 x 10 mEq (1,080 mg)) PO BID 90 days spironolacton-hydrochlorothiaz 25-25 mg 1 tab PO DAILY tadalafil 10 mg PO DAILY 90 days tadalafil 20 mg PO ONCE PRN 30 days trazodone 100 mg PO BEDTIME Tobacco use date assessed: 09/24/23 Dental Screening Dental Screen Date: 09/24/23 Did you have a dental visit in the last 12 months?: Yes Did you have a dental problem in the last 6 months where you did not have access to dental care?: No Was dental information given to patient?: Patient has dentist HPI 3 Month F/u~ HPI Details 57-year-old gentleman came today regular follow-up appointment Patient has been evaluated by ENT specialist, and was told that his chronic cough is not because of his sinuses It was recommended that he sees air conditioning specialist, patient has already tried maintenance inhaler which did not help him with his coughing Another possibility is chronic reflux He is requesting referral to air conditioning specialist Creatinine is elevated 1.5 , patient have chronic diabetic nephropathy he has appointment coming up with Nephrology next month His hemoglobin A1c is 5.5 currently he is taking long-acting insulin 50 units only Other providers patient is seeing our Pain Management [facility] Dr. Gera Garsia neurology for obstructive sleep apnea Dr. 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 Diabetes 1.5, managed as type 1 Complex regional pain syndrome of both lower extremities Diabetic peripheral neuropathy Spondylosis of lumbar region without myelopathy or radiculopathy Surgical History S/P placement of nerve stimulator Hx of lithotripsy Hx of colonoscopy Family History Other Mental health disorder Social History Housing: Condominium Alcohol intake: never Patient Tobacco Use Status: Never used Tobacco e-Cigarette/Vaping Use: Never Used Second Hand Smoke Exposure: No service: No Current occupational status: disabled Cognitive needs: No Hearing needs: No Vision needs: Yes Questionnaire PHQ-9 Over the last 2 weeks, how often have you been bothered by any of the following problems? 1. Little interest or pleasure in doing things: several days 2. Feeling down, depressed, or hopeless: several days 3. Trouble falling or staying asleep, or sleeping too much: more than half the days 4. Feeling tired or having little energy: more than half the days 5. Poor appetite or overeating: not at all 6. Feeling bad about yourself - or that you are a failure or have let yourself or your family down: several days 7. Trouble concentrating on things, such as reading the newspaper or watching television: several days 8. Moving or speaking so slowly that other people could have noticed. Or the opposite - being so fidgety or restless that you have been moving around a lot more than usual: not at all 9. Thoughts that you would be better off or of hurting yourself in some way: not at all Total score: 8 Depression Screening Interpretation: Positive Depression Screening Follow-up: Existing condition and In treatment Depression Screening Done: Yes 36381 - PHQ-9 Billing: Yes Source: Developed by Drs. Ken Padilla, Vandana Magallon, Janusz Barlow and colleagues, with an educational nick from [employer]. Thrive Questionnaire Date Thrive assessed: 09/24/23 I am a: Patient What is your living situation today?: I have a steady place to live Within the past 12 months, did the food you bought not last and you didn't have the money to get more?: Never true Within the past 12 months, did you worry whether your food would run out before you got money to buy more?: Never true Do you have trouble paying for medicines?: No Do you have trouble getting transportation to medical appointments?: No Do you have trouble paying your heating and electricity bill?: No Do you have trouble taking care of your child, family member or friend?: No Do you have trouble with day-to-day activities such as bathing, preparing meals, shopping, managing finances, etc.?: No Are you currently unemployed and looking for a job?: No Are you interested in more education?: No Please select the resources that you would like help with: None Currently or been in a relationship where the following occur: no concerns reported THRIVE Score: 0 AUDIT C Alcohol Use Questionnaire (AUDIT-C) 1. How often do you have a drink containing alcohol?: Never 3. How often do you have six or more drinks on one occasion?: Never Total Score: 0 Score Reviewed/Action Taken: Yes CRISTOBAL-7 AMB Questionnaire CRISTOBAL-7 Date CRISTOBAL - 7 assessed: 09/24/23 Feeling nervous, anxious, or on edge: 2 = More than half the days Not being able to stop or control worryin = More than half the days Worrying too much about different things: 2 = More than half the days Trouble relaxin = Nearly every day Being so restless that it is hard to sit still: 1 = Several days Becoming easily annoyed or irritable: 1 = Several days Feeling afraid as if something awful might happen: 2 = More than half the days Total CRISTOBAL-7 score (0-4 normal; 5-9 mild; 10-14 moderate; 15-21 severe): 13 Source: Developed by Drs. Ken Padilla, Vandana Magallon, Janusz Barlow and colleagues, with an educational nick from [employer]. CRISTOBAL-7 Assessment Billing CRISTOBAL-7 Assessment Tool: CRISTOBAL-7 Assessment 46119 Review of Systems Const Denies chills and Denies fever(s) ENT Denies epistaxis and Denies nasal discharge Card Denies chest pain Resp Denies chest congestion and Denies hemoptysis GI Denies diarrhea and Denies nausea Skin/Breast Denies rash Neuro Reports no additional complaints Psych Reports no additional complaints Endo Reports no additional complaints Physical exam (Primary Care) Vital Signs: Last Vital Signs Pulse 102 H 09/24/23 09:38 BP 112/76 09/24/23 09:38 Pulse Ox 96 09/24/23 09:38 Oxygen Delivery Method Room Air 09/24/23 09:38 BMI result Body Mass Index 39.8 Tobacco/Smoking Status: Tobacco use Status Tobacco use date assessed 09/24/23 09/24/23 09:41 Patient Tobacco Use Status Never used Tobacco 09/24/23 09:41 e-Cigarette/Vaping Use Never Used 09/24/23 09:41 PHQ-9: PHQ-9 Score PHQ-9: Total score 8 09/24/23 10:02 Depression Screening Interpretation: Positive Depression Screening Follow-up: Existing condition and In treatment Thrive Assessment: Date of Thrive Assessment Date Thrive assessed 09/24/23 09/24/23 09:41 Currently or been in a relationship where the following occur: no concerns reported Const General: cooperative, comfortable and no acute distress Orientation/consciousness: patient oriented x3 HENMT Head: Yes normocephalic Eyes General: appearance normal, both eyes and all related structures Neck Neck: Yes supple Resp Effort & Inspection: normal respiratory effort, no cough and no stridor Cardio Rhythm: regular rhythm Heart sounds: S1 normal heart sound present and S2 normal heart sound present Skin General skin exam: turgor normal Neuro General: patient oriented x3, tone normal and moves all extremities Assessment and Plan Assessment & Plan (1) Chronic cough: Code(s): R05.3 - Chronic cough (2) Diabetes 1.5, managed as type 1: Code(s): E13.9 - Other specified diabetes mellitus without complications (3) Complex regional pain syndrome of both lower extremities: Code(s): G90.523 - Complex regional pain syndrome I of lower limb, bilateral Qualifiers: Complex regional pain syndrome type: type I Qualified Code(s): G90.523 - Complex regional pain syndrome I of lower limb, bilateral (4) Diabetic peripheral neuropathy: Code(s): E11.42 - Type 2 diabetes mellitus with diabetic polyneuropathy (5) 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: Code(s): Z79.4 - long-term (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 (6) 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, essential: Code(s): I10 - Essential (primary) hypertension (7) Lipid disorder: Code(s): E78.9 - Disorder of lipoprotein metabolism, unspecified (8) Depression, major, recurrent: Code(s): F33.9 - Major depressive disorder, recurrent, unspecified Qualifiers: Active/Remission status: currently active Major depression episode severity: moderate Qualified Code(s): F33.1 - Major depressive disorder, recurrent, moderate (9) Restless legs syndrome (RLS): Code(s): G25.81 - Restless legs syndrome (10) Diabetic nephropathy: Code(s): E11.21 - Type 2 diabetes mellitus with diabetic nephropathy Qualifiers: Diabetes mellitus type: due to underlying condition Qualified Code(s): E08.21 - Diabetes mellitus due to underlying condition with diabetic nephropathy (11) Morbid obesity due to excess calories: Code(s): E66.01 - Morbid (severe) obesity due to excess calories Plan 57-year-old gentleman came today regular follow-up appointment Patient has been evaluated by ENT specialist, and was told that his chronic cough is not because of his sinuses It was recommended that he sees air conditioning specialist, patient has already tried maintenance inhaler which did not help him with his coughing Another possibility is chronic reflux He is requesting referral to air conditioning specialist Creatinine is elevated 1.5 , patient have chronic diabetic nephropathy he has appointment coming up with Nephrology next month His hemoglobin A1c is 5.5 currently he is taking long-acting insulin 50 units only Other providers patient is seeing our Pain Management [facility] for the management of complex regional pain syndrome Dr. Gera Garsia neurology for obstructive sleep apnea Dr. Thompson urology for erectile dysfunction Psychiatry for depression and anxiety management And nephrology BMI is elevated patient is trying to lose weight Medication list reviewed Labs need to be done fasting before next visit in 3 months Orders: Orders Hemoglobin A1c 3 Months E11.21 - Type 2 diabetes mellitus with diabetic nephropathy, E11.42 - Type 2 diabetes mellitus with diabetic polyneuropathy, E13.9 - Other specified diabetes mellitus without complications, E66.01 - Morbid (severe) obesity due to excess calories, E78.9 - Disorder of lipoprotein metabolism, unspecified, F33.9 - Major depressive disorder, recurrent, unspecified, G25.81 - Restless legs syndrome, G90.523 - Complex regional pain syndrome I of lower limb, bilateral, I10 - Essential (primary) hypertension, R05.3 - Chronic cough, Z79.4 - 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 Complete Blood Count Auto Diff 3 Months E11.21 - Type 2 diabetes mellitus with diabetic nephropathy, E11.42 - Type 2 diabetes mellitus with diabetic polyneuropathy, E13.9 - Other specified diabetes mellitus without complications, E66.01 - Morbid (severe) obesity due to excess calories, E78.9 - Disorder of lipoprotein metabolism, unspecified, F33.9 - Major depressive disorder, recurrent, unspecified, G25.81 - Restless legs syndrome, G90.523 - Complex regional pain syndrome I of lower limb, bilateral, I10 - Essential (primary) hypertension, R05.3 - Chronic cough, Z79.4 - long-term (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 Comprehensive [place]. Panel Fast 3 Months E11.21 - Type 2 diabetes mellitus with diabetic nephropathy, E11.42 - Type 2 diabetes mellitus with diabetic polyneuropathy, E13.9 - Other specified diabetes mellitus without complications, E66.01 - Morbid (severe) obesity due to excess calories, E78.9 - Disorder of lipoprotein metabolism, unspecified, F33.9 - Major depressive disorder, recurrent, unspecified, G25.81 - Restless legs syndrome, G90.523 - Complex regional pain syndrome I of lower limb, bilateral, I10 - Essential (primary) hypertension, R05.3 - Chronic cough, Z79.4 - long-term (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 Lipid Panel 3 Months E11.21 - Type 2 diabetes mellitus with diabetic nephropathy, E11.42 - Type 2 diabetes mellitus with diabetic polyneuropathy, E13.9 - Other specified diabetes mellitus without complications, E66.01 - Morbid (severe) obesity due to excess calories, E78.9 - Disorder of lipoprotein metabolism, unspecified, F33.9 - Major depressive disorder, recurrent, unspecified, G25.81 - Restless legs syndrome, G90.523 - Complex regional pain syndrome I of lower limb, bilateral, I10 - Essential (primary) hypertension, R05.3 - Chronic cough, Z79.4 - long-term (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 Referrals Pulmonary Medicine Referral R05.3 - Chronic cough Medications: Refilled Lantus Solostar U-100 Insulin (insulin glargine) 50 units (0.5 mL) subcut QPM 45 mL 3RF 90 days NS E13.9 - Other specified diabetes mellitus without complications Coding Level of Care Code Est Pt Level 4 (40687) Diagnoses Chronic cough R05.3 Diabetes 1.5, managed as type 1 E13.9 Complex regional pain syndrome type 1 of both lower extremities G90.523 Complex regional pain syndrome type: type I Diabetic peripheral neuropathy E11.42 long-term (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 Z79.4 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, essential I10 Lipid disorder E78.9 Moderate episode of recurrent major depressive disorder F33.1 Active/Remission status: currently active Major depression episode severity: moderate Restless legs syndrome (RLS) G25.81 Diabetic nephropathy associated with diabetes mellitus due to underlying condition E08.21 Diabetes mellitus type: due to underlying condition Morbid obesity due to excess calories E66.01 Additional Codes CRISTOBAL-7 Assessment Billing - CRISTOBAL-7 Assessment Tool: CRISTOBAL-7 Assessment [id number] ([id number])
== END 2023-09-24 11:08 | disposition home or self-care (01) ==
PROVIDERS: PCP Internal Medicine; Visit Provider Internal Medicine
DX: E11.42 Type 2 diabetes mellitus with diabetic polyneuropathy (principal); Z79.4 Long term (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; F33.1 Major depressive disorder, recurrent, moderate; E08.21 Diabetes mellitus due to underlying condition with diabetic nephropathy; E66.01 Morbid (severe) obesity due to excess calories; R05.3 Chronic cough; G90.523 Complex regional pain syndrome I of lower limb, bilateral; I10 Essential (primary) hypertension; E78.9 Disorder of lipoprotein metabolism, unspecified; G25.81 Restless legs syndrome
CPT/HCPCS: 99214

== ENCOUNTER 2023-10-01 08:38 | Outpatient (AMB) | payer OTHER, SELFPAY ==
--- NOTE | 2023-10-01 08:40 | MHC.OFFVIS ---
Intake Intake Visit Reasons: 3M Med Review(Tadalafil)Confirmed Intake Note: Patient is Present for Telephone Follow Up Medication review- Tadalafil Urology Med: Tadalafil Antibiotic Allergy: None Blood Thinner: Aspirin Pharmacy: [facility] Allergies No Known Allergies Allergy (Verified 10/01/23 08:41) Medication List - Last Reconciled 10/01/23 by Sylvester Thompson MD allopurinol 300 mg PO DAILY amlodipine 5 mg PO DAILY aripiprazole 5 mg PO DAILY aspirin (Erick Low Dose Aspirin) 81 mg PO DAILY 90 days atorvastatin 20 mg PO DAILY 90 days blood sugar diagnostic (GuardiCore Ultra Test strips) Test blood sugar once a day bupropion HCl XL 300 mg PO QAM duloxetine 60 mg PO BEDTIME flash glucose scanning reader (CyberSense Sonido 2 [place]) As directed flash glucose sensor (LieboStyle Sonido 2 Sensor kit) As directed Lantus Solostar U-100 Insulin (insulin glargine) 50 units (0.5 mL) subcut QPM 90 days NS losartan 100 mg PO DAILY omeprazole 20 mg PO DAILY pen needle, diabetic (AboutTime Pen Needle) As directed penicillin V potassium 250 mg PO BID 90 days potassium citrate ER 20 mEq (2 x 10 mEq (1,080 mg)) PO BID 90 days spironolacton-hydrochlorothiaz 25-25 mg 1 tab PO DAILY tadalafil 20 mg PO ONCE PRN 30 days tadalafil 10 mg PO DAILY 90 days trazodone 100 mg PO BEDTIME HPI HPI Comments History of Present Illness Details Adama is a pleasant male. He is seen for the following urologic conditions - nephrolithiasis - hypocitrauria - erectile dysfunction Telemedicine Evaluation 15 min Consultation Message Missile Mariela Video attempted Follow-up for erectile dysfunction Moderate effect with daily 10 mg 20 mg on demand Interested in trying 20 mg daily That dosage is used for pulmonary hypertension so fits within safety parameter Also sent information regarding penile vacuum pump Discussed injections however at this point he does not want to go down path Background diabetes, obstructive sleep apnea, dyslipidemia, depression, hypertension Six-month follow-up ultrasound Erectile dysfunction Follow-up Trial daily tadalafil 10 mg with 20 mg on demand Nephrolithiasis Recurrent stone former Intervention - 05/18 right ESWL Indications - potassium citrate 20 mEq b.i.d. Urinalysis - 05/18 24 hour urine shows good volume with high sodium, low citrate - 12/17 good volume, improved sodium, improved citrate, improved pH, does have increased oxalate Imaging - 03/18 CT scan left distal ureter 3 mm stone, 6 mm stone on right side - 04/17 renal ultrasound right side 6 mm stone - 06/17 renal ultrasound no evidence of stone, hematoma on right side post ESWL - 12/17 renal ultrasound no stones - 12/18 renal ultrasound no stones Therapeutic plan - 12 months with imaging [facility] Medical History Restless legs syndrome (RLS) Obstructive sleep apnea Chronic pain syndrome Ureteral calculus Fatty liver Gout Kidney stones Depression, major, recurrent Lipid disorder 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, essential 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 Diabetes 1.5, managed as type 1 Complex regional pain syndrome of both lower extremities Diabetic peripheral neuropathy Spondylosis of lumbar region without myelopathy or radiculopathy Surgical History S/P placement of nerve stimulator Hx of lithotripsy Hx of colonoscopy Family History Other Mental health disorder Social History Housing: Condominium Alcohol intake: never Patient Tobacco Use Status: Never used Tobacco e-Cigarette/Vaping Use: Never Used Second Hand Smoke Exposure: No service: No Current occupational status: disabled Cognitive needs: No Hearing needs: No Vision needs: Yes Assessment & Plan Assessment & Plan (1) Nephrolithiasis: Code(s): N20.0 - Calculus of kidney (2) Erectile dysfunction associated with type 2 diabetes mellitus: Code(s): E11.69 - Type 2 diabetes mellitus with other specified complication; N52.1 - Erectile dysfunction due to diseases classified elsewhere Plan Increased tadalafil dose Six-month follow-up renal ultrasound Orders: Orders US renal BI 6 Months R82.991 - Hypocitraturia Medications: Refilled tadalafil 10 mg PO DAILY 90 days 90 tabs 0RF sexual activity E11.69 - Type 2 diabetes mellitus with other specified complication, N52.1 - Erectile dysfunction due to diseases classified elsewhere tadalafil On demand medication take 60 minutes before intended activity 20 mg PO ONCE 30 days PRN 30 tabs 0RF sexual activity E11.69 - Type 2 diabetes mellitus with other specified complication, N52.1 - Erectile dysfunction due to diseases classified elsewhere tadalafil 10 mg PO DAILY 90 days 90 tabs 1RF sexual activity E11.69 - Type 2 diabetes mellitus with other specified complication, N52.1 - Erectile dysfunction due to diseases classified elsewhere Patient Instructions: Imaging studies, laboratory and physical exam results were discussed and reviewed in detail. No major barriers to patient understanding were identified. An opportunity to ask questions regarding the treatment plan was provided. All questions were answered. The patient expressed understanding and agreement with the above treatment plan. The patient is aware they should contact our office by phone for worsening of their current condition or the appearance of new urologic symptoms. Compliance is encouraged with any medications and followup testing that is ordered. It is a privilege to participate in the urologic care of your patient. If you have any questions or concerns regarding treatment for the above conditions, or other urologic issues, please do not hesitate to contact me. The office telephone contact is [phone]. This note is constructed using voice recognition software. While every effort has been made to ensure accuracy optimization specialist errors may have been included. Yours sincerely, Dr Sylvester Thompson MD, [facility] - Urology Providers of Expert, Compassionate Care for the Genitourinary System Telehealth Telehealth Location of provider rendering services: practice address Location of patient: address on file Patient Identification confirmed using: Name, : Yes Telehealth method: video Patient verbally consented to treatment: Yes Patient verbally consented to billing insurance company: Yes Patient informed of any privacy concerns related to visit: Yes Coding Level of Care Code Tele Est Pt Level 4 (99704) Diagnoses Nephrolithiasis N20.0 Erectile dysfunction associated with type 2 diabetes mellitus E11.69; N52.1
== END 2023-10-01 09:58 | disposition home or self-care (01) ==
LOC: HO.HUSH 08:38
PROVIDERS: PCP Internal Medicine; Visit Provider Urology
DX: N20.0 Calculus of kidney (principal); E11.69 Type 2 diabetes mellitus with other specified complication; N52.1 Erectile dysfunction due to diseases classified elsewhere
CPT/HCPCS: 99214

== ENCOUNTER → 2023-10-01 08:38 | Outpatient (BNVA) | payer OTHER, SELFPAY | PROVIDERS: PCP Internal Medicine; Visit Provider Urology ==

== ENCOUNTER 2023-10-13 13:23 | Outpatient (AMB) | payer OTHER, SELFPAY ==
--- NOTE | 2023-10-13 13:26 | A.OFFVIS_ITS ---
Intake Vital Signs 10/13/23 13:37 Height 6 ft Weight 295 lb BMI 40.0 BP 112/64 Blood Pressure Location Lt brachial Position Sitting Respiration 18 Pulse 95 Pulse Source Pulse Oximeter Pulse Oximetry (%) 99 Oxygen Delivery Method Room Air Intake Visit Reasons: FOLLOW UP FOR BACK PAIN Intake Note: Patient comes in for follow up appointment. Reports pain 10/05. Allergies No Known Allergies Allergy (Verified 10/13/23 13:37) HPI HPI Comments History of Present Illness Details Adama is back in my office to after 1 year of absence. He has [employer]. He reports that he does not use the device lately because it does not alleviate his pain. Carlos the logistics service representative from [employer] will be working today with the patient trying to adjust his stimulation. At the same time patient reports pain in the lower thoracic upper lumbar spine. The pain is being aggravated with the patient flexing backwards. I suspect that it is facet joint problem. His pain is facetogenic in nature and predominantly axial. He reports that he is started to experience this pain when a chiropractor ?started to adjust my spine ?, he had minor pain in the thoracolumbar junction however after chiropractor manipulations his pain became unbearable. We agreed that I will schedule him for bilateral T11-T12 L1 medial branch block the level of the block could be changed at the time of the injection based on the examination under fluoroscopy. Results of the trial of SCS [employer]ro: He reports excellent pain relief specially in bilateral lower extremities. He reports that he is able to sleep very well with device on he reports minor pain in the feet but it does not prevent him to take good sleep. He also reports the device helps for the lower back pain improved his mobility activities of daily living and improve his social interactions. He is very much interested in implantation of the device on permanent basis. He is suffering from spondylosis of the lumbar spine disc degeneration lumbar spine but his main problem is diabetic polyneuropathy of bilateral lower extremities. Prior: SI joint injection results 3 weeks of pain relieve on diagnostic injection 100%.? I will schedule him for the The pain under right scapula is another problem for this patient.? I told him that this pain can be treated potentially as a myofascial pain syndrome and I can perform once he is here in my office a trigger point injection into this area hopefully it will give him good pain relief.? ?He is under care of urologist and urologist thinks that this pain might be related to his kidney stones.? However the larger stone he has? is on the left side and that he experiences pain only on the right.? He is going for shockwave lithotripsy with this urologist in the future to destroyed the stones.? As of his polyneuropathy it stems out from diabetes.? His hemoglobin A1c is equal to 8. it is certain improvement from number in around 10. however unfo rtunately it is not good enough to reduce polyneuropathy.? He reports significant bilateral pain as burning sensations pins and needles in bilateral feet in the is distribution of the low socks.? We discussed the situation with peripheral neuropathy.? Explained to him that unless he would decrease his hemoglobin A1c below 6 I would not expect his pain getting better. ?He is suffering from axial lower back pain and peripheral diabetic polyneuropathy.? ? He was complaining on the pain in the lateral hip area, he was sent for hip x- ray which demonstrated almost no pathology normal alignment no cartilage loss. He went for consult with Dr. Rodrigez a neurosurgeon.? There were no indications to do any surgical interventions by Dr. Rodrigez. 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 Diabetes 1.5, managed as type 1 Complex regional pain syndrome of both lower extremities Diabetic peripheral neuropathy Spondylosis of lumbar region without myelopathy or radiculopathy Surgical History S/P placement of nerve stimulator Hx of lithotripsy Hx of colonoscopy Family History Other Mental health disorder Social History Housing: Condominium Alcohol intake: never Patient Tobacco Use Status: Never used Tobacco e-Cigarette/Vaping Use: Never Used Second Hand Smoke Exposure: No service: No Current occupational status: disabled Cognitive needs: No Hearing needs: No Vision needs: Yes Review of Systems Const All systems reviewed & are unremarkable except as noted in HPI and below Physical Exam Vital Signs: Last Vital Signs Pulse 95 10/13/23 13:37 Resp 18 10/13/23 13:37 BP 112/64 10/13/23 13:37 Pulse Ox 99 10/13/23 13:37 Oxygen Delivery Method Room Air 10/13/23 13:37 BMI result Body Mass Index 40.0 Const General: cooperative and no acute distress Nutritional Appearance: obese Limitations: no limitations HEENT Head: Yes normocephalic Ears: hearing grossly normal bilaterally Neck Neck: Yes full ROM and Yes supple Resp Effort & Inspection: normal respiratory effort and able to speak in complete sentences Psych Appearance: grossly normal Mental Status: mental status grossly normal Speech and movement: Normal speech and movement present Affect: normal affect Attitude: cooperative Thought process: Normal thought process present Thought content: Normal thought content present Insight: Good insight present (Psych) Judgement: Good judgement present (Psych) Assessment & Plan Assessment & Plan (1) Spinal cord stimulator status: Code(s): Z96.89 - Presence of other specified functional implants (2) Hip osteoarthritis: Code(s): M16.9 - Osteoarthritis of hip, unspecified (3) Spondylosis of lumbar region without myelopathy or radiculopathy: Code(s): M47.816 - Spondylosis without myelopathy or radiculopathy, lumbar region (4) Diabetes type 2, uncontrolled: Code(s): E11.65 - Type 2 diabetes mellitus with hyperglycemia (5) Diabetic peripheral neuropathy: Code(s): E11.42 - Type 2 diabetes mellitus with diabetic polyneuropathy (6) Complex regional pain syndrome of both lower extremities: Code(s): G90.523 - Complex regional pain syndrome I of lower limb, bilateral Qualifiers: Complex regional pain syndrome type: type I Qualified Code(s): G90.523 - Complex regional pain syndrome I of lower limb, bilateral (7) Sacroiliac joint pain: Code(s): M53.3 - Sacrococcygeal disorders, not elsewhere classified (8) Sacroiliitis: Code(s): M46.1 - Sacroiliitis, not elsewhere classified Plan He reports that [employer] stopped working for him lately he is in the office today to meet Carlos the logistics service representative of a [employer] to adjust his stimulation. The discussion of the procedure to treat the upper back pain after intervention of the local chiropractor who ?adjusted his spine ?is as above. His pain is predominantly axial and facetogenic in nature. I will schedule him for T11-T12 L1 bilateral medial branch block diagnostic, the level of the inject ions may be changed to the examination under fluoroscopy. I will see this patient after the block. I hope that stimulation will be adjusted today by [employer] logistics service representative to return previously very good alleviation of the neuropathic pain in the feet. Patient Instructions: I here by testify that I spent 35 minutes in conversation with this patient as well as planning his care and organizing this note. Coding Level of Care Code Est Pt Level 4 (26976) Diagnoses Spinal cord stimulator status Z96.89 Hip osteoarthritis M16.9 Spondylosis of lumbar region without myelopathy or radiculopathy M47.816 Diabetes type 2, uncontrolled E11.65 Diabetic peripheral neuropathy E11.42 Complex regional pain syndrome type 1 of both lower extremities G90.523 Complex regional pain syndrome type: type I Sacroiliac joint pain M53.3 Sacroiliitis M46.1
[2023-10-13 13:37] VITALS: BP 112/64; PULSE 95; RESP 18; O2SAT 99; BMI 40.0
== END 2023-10-13 14:36 | disposition home or self-care (01) ==
PROVIDERS: PCP Internal Medicine; Visit Provider Anesthesiology
DX: Z96.89 Presence of other specified functional implants (principal); M16.9 Osteoarthritis of hip, unspecified; M47.816 Spondylosis without myelopathy or radiculopathy, lumbar region; E11.65 Type 2 diabetes mellitus with hyperglycemia; E11.42 Type 2 diabetes mellitus with diabetic polyneuropathy; G90.523 Complex regional pain syndrome I of lower limb, bilateral; M53.3 Sacrococcygeal disorders, not elsewhere classified; M46.1 Sacroiliitis, not elsewhere classified
CPT/HCPCS: 99214

== ENCOUNTER → 2023-10-13 13:23 | Outpatient (BNVA) | payer OTHER, SELFPAY | PROVIDERS: PCP Internal Medicine; Visit Provider Anesthesiology ==

== ENCOUNTER 2023-10-19 13:34 | Outpatient (REF) | payer OTHER, SELFPAY ==
[2023-10-19 15:03] LABS: Anion Gap 11 (12-20); Blood Urea Nitrogen 21 mg/dL (9-16); Calcium 9.7 mg/dL (8.4-10.2); Carbon Dioxide 29 mmol/L (22-29); Chloride 103 mmol/L (96-108); Estimated Glomerular Filt Rate 45; Glucose Random 176 mg/dL (60-115); Potassium 4.2 mmol/L (3.3-5.1); Sodium 139 mmol/L (135-145)
== END 2023-10-19 13:35 | disposition home or self-care (01) ==
LOC: HO.LAB 13:34
PROVIDERS: PCP Internal Medicine; Visit Provider Internal Medicine Hypertension Specialist
DX: N18.30 Chronic kidney disease, stage 3 unspecified (principal)
CPT/HCPCS: 36415; 80048

== ENCOUNTER 2023-10-19 13:51 | Outpatient (AMB) | payer OTHER, SELFPAY ==
[2023-10-19 13:35] VITALS: BP 124/72; PULSE 92; O2SAT 98; BMI 40.3
--- NOTE | 2023-10-19 13:35 | HO.NEPHOV_ITS ---
Vital Signs 10/19/23 13:35 Height 6 ft Weight 297 lb BMI 40.3 BP 124/72 Blood Pressure Location Rt brachial Position Sitting Pulse 92 Pulse Source Pulse Oximeter Pulse Oximetry (%) 98 Oxygen Delivery Method Room Air Intake Visit Reasons: 3mo follow up/ Confirmed Group Work Program Aide Required: No Accompanied by: Self / Same As Patient Allergies No Known Allergies Allergy (Verified 10/19/23 13:37) HPI Comments Details: 58-year-old man with a history of diabetes mellitus obesity and obstructive sleep apnea with history of nephrolithiasis is here for evaluation of renal function He is being followed by Urology. 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 Diabetes 1.5, managed as type 1 Complex regional pain syndrome of both lower extremities Diabetic peripheral neuropathy Spondylosis of lumbar region without myelopathy or radiculopathy Surgical History S/P placement of nerve stimulator Hx of lithotripsy Hx of colonoscopy Family History Other Mental health disorder Social History Housing: Condominium Alcohol intake: never Patient Tobacco Use Status: Never used Tobacco e-Cigarette/Vaping Use: Never Used Second Hand Smoke Exposure: No service: No Current occupational status: disabled Cognitive needs: No Hearing needs: No Vision needs: Yes Physical Exam Vital Signs: Last Vital Signs Pulse 92 10/19/23 13:35 BP 124/72 10/19/23 13:35 Pulse Ox 98 10/19/23 13:35 Oxygen Delivery Method Room Air 10/19/23 13:35 BMI result Body Mass Index 40.3 Const General: comfortable Nutritional Appearance: well nourished Orientation/consciousness: patient oriented x3 HEENT Head: No normal to inspection Mouth: moist mucous membranes Neck Neck: Yes supple and Yes no JVD Resp Auscultation: clear to auscultation bilaterally, no rales and rub present Cardio Jugular venous distension: no JVD Palpation: no palpable S3 and no palpable S4 Heart sounds: no rubs GI Palpation (GI): Soft to palpation and nontender Percussion: No Fluid wave present General: Yes no CVA tenderness Back/Spine/Pelvis Back: no CVA tenderness Skin General skin exam: no rashes or lesions noted Neuro General: patient oriented x3 Extrem General: Yes no pedal edema and No clubbing Results Reviewed Nephrology Results: Hgb 14.8 g/dl (14.0-18.0) 07/02/23 WBC 4.7 X10*3/uL (4.8-10.8) L 07/02/23 Plt Count 187 X10*3/uL (160-400) 07/02/23 Sodium 139 mmol/L (135-145) 10/19/23 Potassium 4.2 mmol/L (3.3-5.1) 10/19/23 Chloride 103 mmol/L (96-108) 10/19/23 Carbon Dioxide 29 mmol/L (22-29) 10/19/23 BUN 21 mg/dL (9-16) H 10/19/23 Creatinine 1.58 mg/dL (0.5-1.4) H 10/19/23 Calcium 9.7 mg/dL (8.4-10.2) 10/19/23 Urine Creatinine 104.60 mg/dL 07/02/23 Assessment & Plan Assessment & Plan (1) Chronic kidney disease: Code(s): N18.9 - Chronic kidney disease, unspecified Category: Medical Qualifiers: Chronic kidney disease stage: stage 3 (moderate) Chronic kidney disease stage 3 subtype: unspecified whether 3a or 3b Qualified Code(s): N18.30 - Chronic kidney disease, stage 3 unspecified Plan 56-year-old man with hypertension CKD and nephrolithiasis. Given the history of nephrolithiasis he will benefit from a thiazide diuretic. ON spironolactone to Aldactazide. The meantime encouraged him to stay on low-sodium diet He should avoid salt substitute. We will monitor serum potassium closely. Encouraged him to use CPAP regularly. He continue to avoid nephrotoxic agents including NSAIDs. Repeat lab work ordered today May need to adjust K supplementation based on lab results Orders: Orders Basic Metabolic Panel Today N18.30 - Chronic kidney disease, stage 3 unspecified Medications: Refilled spironolacton-hydrochlorothiaz 25-25 mg 1 tab PO DAILY 90 tabs 1RF Coding Level of Care Code Est Pt Level 4 (86716) Diagnoses Stage 3 chronic kidney disease, unspecified whether stage 3a or 3b CKD N18.30 Chronic kidney disease stage: stage 3 (moderate) Chronic kidney disease stage 3 subtype: unspecified whether 3a or 3b
== END 2023-10-19 13:52 | disposition home or self-care (01) ==
PROVIDERS: PCP Internal Medicine; Visit Provider Internal Medicine Hypertension Specialist
DX: N18.30 Chronic kidney disease, stage 3 unspecified (principal)
CPT/HCPCS: 99214

== ENCOUNTER 2023-10-26 06:14 | Outpatient (REF) | payer OTHER, SELFPAY ==
--- NOTE | ~2023-10-26 | FL_ITS ---
EXAMINATION: XR FLUOROSCOPY WITH IMAGES CLINICAL INFORMATION: Spondylosis without myelopathy or radiculopathy, lumbar region. COMPARISON: Thoracic and lumbar spine radiographs 08/16/2023. TECHNIQUE: Fluoroscopy Supervised By: Dr. Najera. Fluoroscopy Time: 0.5 minutes. Cumulative Dose: 18.3 mGy. DAP: 5.01 Gycm2. Images: 9. FINDINGS: Intraoperative fluoroscopy and spot films were performed during a procedure in the OR. Imaging demonstrates a needle and contrast at multiple levels in the upper lumbar and lower thoracic spine. Please see Dr. Najera's report for complete details. FL/FL guidance in treatment room IMPRESSION: Intraoperative fluoroscopy and spot films were obtained. Please see Dr. Najera's report for complete details.
== END 2023-10-26 06:15 | disposition home or self-care (01) ==
LOC: CF 06:14
PROVIDERS: Visit Provider Anesthesiology
DX: M47.814 Spondylosis without myelopathy or radiculopathy, thoracic region (principal); M16.9 Osteoarthritis of hip, unspecified; M53.3 Sacrococcygeal disorders, not elsewhere classified; M46.1 Sacroiliitis, not elsewhere classified; E11.42 Type 2 diabetes mellitus with diabetic polyneuropathy; E11.65 Type 2 diabetes mellitus with hyperglycemia; G90.523 Complex regional pain syndrome I of lower limb, bilateral; Z96.89 Presence of other specified functional implants
CPT/HCPCS: 64490; 64491; J2795; Q9967

== ENCOUNTER 2023-10-26 10:23 | Outpatient (AMB) | payer OTHER, SELFPAY ==
--- NOTE | 2023-10-26 10:54 | MHC.OFFVIS ---
Vital Signs 10/26/23 11:48 10/26/23 11:50 Height 6 ft Weight 297 lb BMI 40.3 BP 124/80 126/76 Blood Pressure Location Lt brachial Lt brachial Position Sitting Sitting Respiration 18 18 Pulse 90 78 Pulse Source Pulse Oximeter Pulse Oximeter Pulse Oximetry (%) 97 97 Oxygen Delivery Method Room Air Room Air Comment Pre-Op Post-Op Intake Visit Reasons: Sage Dx [id number] MBB Allergies No Known Allergies Allergy (Verified 10/19/23 13:37) PFSH Medical History Restless legs syndrome (RLS) Obstructive sleep apnea Chronic pain syndrome Ureteral calculus Fatty liver Gout Kidney stones Depression, major, recurrent Lipid disorder 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, essential 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 Diabetes 1.5, managed as type 1 Complex regional pain syndrome of both lower extremities Diabetic peripheral neuropathy Spondylosis of lumbar region without myelopathy or radiculopathy Surgical History S/P placement of nerve stimulator Hx of lithotripsy Hx of colonoscopy Family History Other Mental health disorder Social History Housing: Condominium Alcohol intake: never Patient Tobacco Use Status: Never used Tobacco e-Cigarette/Vaping Use: Never Used Second Hand Smoke Exposure: No service: No Current occupational status: disabled Cognitive needs: No Hearing needs: No Vision needs: Yes Physical Exam Vital Signs: Last Vital Signs Pulse 78 10/26/23 11:50 Resp 18 10/26/23 11:50 BP 126/76 10/26/23 11:50 Pulse Ox 97 10/26/23 11:50 Oxygen Delivery Method Room Air 10/26/23 11:50 BMI result Body Mass Index 40.3 Assessment & Plan Assessment & Plan (1) Spinal cord stimulator status: Code(s): Z96.89 - Presence of other specified functional implants Category: Medical (2) Hip osteoarthritis: Code(s): M16.9 - Osteoarthritis of hip, unspecified (3) Spondylosis of lumbar region without myelopathy or radiculopathy: Code(s): M47.816 - Spondylosis without myelopathy or radiculopathy, lumbar region Category: Medical Plan: Diagnostic medial branch block T10,-T11, T12 bilateral.? ? ?Informed consent was explained to the patient. All questions were explained and? answered.? The patient was taken inside the operating room where he was positioned prone on the operating table. Time-out was performed delineating correct site, side, the nature of the procedure, patient's allergy, . All operating room staff was participating in OR time-out procedure. ? ? The lower back was prepped with ChloraPrep and draped with sterile towels.? C-arm was brought over the operating field and lower thoracic vertebra were delineated on the screen.? The spinous processes of the lower thoracic vertebras was palpated and patient reported that the most of the pain he feels in the projection of the T12 thoracic spinous process. The decision was made to do the procedure on T11, T12 and L1 which would constitute T10-T11 and T12 medial branch blocks. The points of interest were delineated at the Centers of the projection of the pedicle on the above-mentioned vertebra bilaterally. The projection of the point of interest to the skin were injected with the small amount of local anesthetic lidocaine 2% 1-1.5 cc.? After that 22 gauge 3.5 inch spinal needle was driven sequentially to the points of interest in tunnel vision fashion. After needles gently contacted the bone at the point of interests the needle was injected with small amount of the contrast.? The injection of the contrast did not demonstrate any intravascular or intrathecal spread of the contrast.? After that injection of the? ropivacaine 0.5%-1cc was performed at each needle location.??after that the needles were removed and Bandaids were applied. ? Upon completion of the injections? needle was? removed and sterile Band-Aids were applied.? The patient tolerated procedure very well. (4) Diabetes type 2, uncontrolled: Code(s): E11.65 - Type 2 diabetes mellitus with hyperglycemia Category: Medical (5) Diabetic peripheral neuropathy: Code(s): E11.42 - Type 2 diabetes mellitus with diabetic polyneuropathy Category: Medical (6) Complex regional pain syndrome of both lower extremities: Code(s): G90.523 - Complex regional pain syndrome I of lower limb, bilateral Category: Medical Qualifiers: Complex regional pain syndrome type: type I Qualified Code(s): G90.523 - Complex regional pain syndrome I of lower limb, bilateral (7) Sacroiliac joint pain: Code(s): M53.3 - Sacrococcygeal disorders, not elsewhere classified Category: Medical (8) Sacroiliitis: Code(s): M46.1 - Sacroiliitis, not elsewhere classified Category: Medical Plan He reports that [employer] [facility] stopped working for him lately he is in the office today to meet Carlos the passenger representative of a [employer] to adjust his stimulation. The discussion of the procedure to treat the upper back pain after intervention of the local chiropractor who ?adjusted his spine ?is as above. His pain is predominantly axial and facetogenic in nature. I will schedule him for T11-T12 L1 bilateral medial branch block diagnostic, the level of the injections may be changed to the examination under fluoroscopy. I will see this patient after the block. I hope that stimulation will be adjusted today by [employer] passenger representative to return previously very good alleviation of the neuropathic pain in the feet. Orders: Orders FL guidance in treatment room Today M47.816 - Spondylosis without myelopathy or radiculopathy, lumbar region Coding Level of Care Code Procedure Only Diagnoses Spinal cord stimulator status Z96.89 Hip osteoarthritis M16.9 Spondylosis of lumbar region without myelopathy or radiculopathy M47.816 Diabetes type 2, uncontrolled E11.65 Diabetic peripheral neuropathy E11.42 Complex regional pain syndrome type 1 of both lower extremities G90.523 Complex regional pain syndrome type: type I Sacroiliac joint pain M53.3 Sacroiliitis M46.1
[2023-10-26 11:48] VITALS: BP 124/80; PULSE 90; RESP 18; O2SAT 97; BMI 40.3
[2023-10-26 11:50] VITALS: BP 126/76; PULSE 78; RESP 18; O2SAT 97
== END 2023-10-26 11:52 | disposition home or self-care (01) ==
LOC: HO.PMCPRC 10:23
PROVIDERS: PCP Internal Medicine; Visit Provider Anesthesiology
DX: M47.816 Spondylosis without myelopathy or radiculopathy, lumbar region (principal)
CPT/HCPCS: 64490; 64491

== ENCOUNTER 2023-11-01 10:06 | Outpatient (AMB) | payer OTHER, SELFPAY ==
--- NOTE | 2023-11-01 10:13 | A.OFFVIS_ITS ---
Vital Signs 11/01/23 10:27 Height 6 ft Weight 301 lb 8 oz BMI 40.9 BP 108/56 L Blood Pressure Location Lt brachial Position Sitting Respiration 18 Pulse 87 Pulse Source Pulse Oximeter Pulse Oximetry (%) 96 Oxygen Delivery Method Room Air Intake Visit Reasons: BILATERAL DIAGNOSTIC T11,T12, L1 MBB Intake Note: Patient comes in for post-op appointment. Reports pain 09/04. Allergies No Known Allergies Allergy (Verified 11/01/23 10:26) HPI Comments Details: Adama is back in my office after diagnostic medial branch block T10-T11 T12 medial branches to treat possible spondylotic changes of the thoracolumbar junction. Unfortunately the results of the procedure not encouraging. The patient reports not enough of the improvement to justify any interventions. If anything after the injection her this pain became stronger and certainly was not in any extent alleviated . He reports spastic sensations when he lies down. I suspect that he might be my hypomagnesemic. I recommended him to start magnesium glycinate 250 mg q.d. or b.i.d. I also would like to send him to physical therapy. I explained to him the home exercise program as an integrated part of physical therapy. Next appointment is as needed. He has [facility] [facility]. He reports that he does not use the device lately because it does not alleviate his pain. Carlos the technical service representative from [employer] will be working today with the patient trying to adjust his stimulation. At the same time patient reports pain in the lower thoracic upper lumbar spine. The pain is being aggravated with the patient flexing backwards. I suspect that it is facet joint problem. His pain is facetogenic in nature and predominantly axial. He reports that he is started to experience this pain when a chiropractor ?started to adjust my spine ?, he had minor pain in the thoracolumbar junction however after chiropractor manipulations his pain became unbearable. We agreed that I will schedule him for bilateral T11-T12 L1 medial branch block the level of the block could be changed at the time of the injection based on the examination under fluoroscopy. Results of the trial of [facility] [employer]: He reports excellent pain relief specially in bilateral lower extremities. He reports that he is able to sleep very well with device on he reports minor pain in the feet but it does not prevent him to take good sleep. He also reports the device helps for the lower back pain improved his mobility activities of daily living and improve his social interactions. He is very much interested in implantation of the device on permanent basis. He is suffering from spondylosis of the lumbar spine disc degeneration lumbar spine but his main problem is diabetic polyneuropathy of bilateral lower extremities. Prior: SI joint injection results 3 weeks of pain relieve on diagnostic injection 100 %.? I will schedule him for the The pain under right scapula is another problem for this patient.? I told him that this pain can be treated potentially as a myofascial pain syndrome and I can perform once he is here in my office a trigger point injection into this area hopefully it will give him good pain relief.? ?He is under care of urologist and urologist thinks that this pain might be related to his kidney stones.? However the larger stone he has? is on the left side and that he experiences pain only on the right.? He is going for shockwave lithotripsy with this urologist in the future to destroyed the stones.? As of his polyneuropathy it stems out from diabetes.? His hemoglobin A1c is equal to 8. it is certain improvement from number in around 10. however unfortunately it is not good enough to reduce polyneuropathy.? He reports significant bilateral pain as burning sensations pins and needles in bilateral feet in the is distribution of the low socks.? We discussed the situation with peripheral neuropathy.? Explained to him that unless he would decrease his hemoglobin A1c below 6 I would not expect his pain getting better. ?He is suffering from axial lower back pain and peripheral diabetic polyneuropathy.? ? He was complaining on the pain in the lateral hip area, he was sent for hip x- ray which demonstrated almost no pathology normal alignment no cartilage loss. He went for consult with Dr. Rodrigez a neurosurgeon.? There were no indications to do any surgical interventions by Dr. Rodrigez. 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 Diabetes 1.5, managed as type 1 Complex regional pain syndrome of both lower extremities Diabetic peripheral neuropathy Spondylosis of lumbar region without myelopathy or radiculopathy Surgical History S/P placement of nerve stimulator Hx of lithotripsy Hx of colonoscopy Family History Other Mental health disorder Social History Housing: Condominium Alcohol intake: never Patient Tobacco Use Status: Never used Tobacco e-Cigarette/Vaping Use: Never Used Second Hand Smoke Exposure: No service: No Current occupational status: disabled Cognitive needs: No Hearing needs: No Vision needs: Yes Review of Systems Const All systems reviewed & are unremarkable except as noted in HPI and below Physical Exam Vital Signs: Last Vital Signs Pulse 87 11/01/23 10:27 Resp 18 11/01/23 10:27 BP 108/56 L 11/01/23 10:27 Pulse Ox 96 11/01/23 10:27 Oxygen Delivery Method Room Air 11/01/23 10:27 BMI result Body Mass Index 40.9 Const General: cooperative and no acute distress Nutritional Appearance: obese Limitations: no limitations HEENT Head: Yes normocephalic Ears: hearing grossly normal bilaterally Neck Neck: Yes full ROM and Yes supple Resp Effort & Inspection: normal respiratory effort and able to speak in complete sentences 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 myelopathy or radiculopathy: Code(s): M47.816 - Spondylosis without myelopathy or radiculopathy, lumbar region Category: Medical (4) Diabetes type 2, uncontrolled: Code(s): E11.65 - Type 2 diabetes mellitus with hyperglycemia Category: Medical (5) Diabetic peripheral neuropathy: Code(s): E11.42 - Type 2 diabetes mellitus with diabetic polyneuropathy Category: Medical (6) Complex regional pain syndrome of both lower extremities: Code(s): G90.523 - Complex regional pain syndrome I of lower limb, bilateral Category: Medical Qualifiers: Complex regional pain syndrome type: type I Qualified Code(s): G90.523 - Complex regional pain syndrome I of lower limb, bilateral (7) Sacroiliac joint pain: Code(s): M53.3 - Sacrococcygeal disorders, not elsewhere classified Category: Medical (8) Sacroiliitis: Code(s): M46.1 - Sacroiliitis, not elsewhere classified Category: Medical (9) 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 However unfortunately did not result in any pain improvement. I recommended him to start physical therapy. I also recommended him to start magnesium glycinate OTC to help his spastic sensations in the back. When he will complete physical therapy and home exercise program he may give me a call and schedule an appointment with me for further discussion. 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
[2023-11-01 10:27] VITALS: BP 108/56; PULSE 87; RESP 18; O2SAT 96; BMI 40.9
== END 2023-11-01 10:53 | disposition home or self-care (01) ==
PROVIDERS: PCP Internal Medicine; Visit Provider Anesthesiology
DX: M16.9 Osteoarthritis of hip, unspecified (principal); M47.816 Spondylosis without myelopathy or radiculopathy, lumbar region; E11.65 Type 2 diabetes mellitus with hyperglycemia; Z96.89 Presence of other specified functional implants; E11.42 Type 2 diabetes mellitus with diabetic polyneuropathy; G90.523 Complex regional pain syndrome I of lower limb, bilateral; M53.3 Sacrococcygeal disorders, not elsewhere classified; M46.1 Sacroiliitis, not elsewhere classified; M47.815 Spondylosis without myelopathy or radiculopathy, thoracolumbar region
CPT/HCPCS: 99213

== ENCOUNTER → 2023-11-01 10:06 | Outpatient (BNVA) | payer OTHER, SELFPAY | PROVIDERS: PCP Internal Medicine; Visit Provider Anesthesiology ==

== ENCOUNTER 2023-12-21 14:29 | Outpatient (AMB) | payer OTHER, SELFPAY ==
--- NOTE | 2023-12-21 14:33 | A.OFFVIS_ITS ---
Vital Signs 12/21/23 14:34 Height 6 ft Weight 304 lb BMI 41.2 BP 112/62 Blood Pressure Location Rt brachial Position Sitting Pulse 87 Pulse Source Doppler Pulse Oximetry (%) 95 Oxygen Delivery Method Room Air Intake Visit Reasons: chronic cough Allergies No Known Allergies Allergy (Verified 12/21/23 14:39) HPI HPI chronic cough: Details: 58-year-old gentleman, nonsmoker, with underlying chronic cough over 2 years intermittently productive of clear sputum with no changes in his cough with body position, food intake, or time of day. Patient has been tried on empiric PPI, inhaled corticosteroids, ppi, antihistamines, and gabapentin. He was evaluated by ENT with no reason for his cough noted. He denies having any acid reflux. Patient denies family history of lung disease. He denies exposure to industrial dusts. He does have underlying KRISTIN treated with CPAP by sleep specialist. His recent PFT is essentially normal. 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 Diabetes 1.5, managed as type 1 Complex regional pain syndrome of both lower extremities Diabetic peripheral neuropathy Spondylosis of lumbar region without myelopathy or radiculopathy Surgical History S/P placement of nerve stimulator Hx of lithotripsy Hx of colonoscopy Family History Other Mental health disorder Social History Housing: Condominium Alcohol intake: never Patient Tobacco Use Status: Never used Tobacco e-Cigarette/Vaping Use: Never Used Second Hand Smoke Exposure: No service: No Current occupational status: disabled Cognitive needs: No Hearing needs: No Vision needs: Yes Review of Systems Const Denies daytime sleepiness, Denies excessive sweating, Denies fatigue, Denies fever(s), Denies lethargy, Denies malaise, Denies night sweats, Denies snoring and Denies weight loss Eyes Denies blurry vision and Denies itchy eyes ENT Denies nasal congestion, Denies post nasal drip, Denies sinus pain, Denies sinus pressure and Denies other ( Thrush) Card Denies chest pain, Denies pedal edema, Denies dyspnea, Denies orthopnea and Denies paroxysmal nocturnal dyspnea Resp Reports cough, Denies hemoptysis, Denies excessive phlegm production, Denies dyspnea, Denies snoring and Denies wheezing GI Denies abdominal pain and Denies heartburn Musc Denies myalgias, Denies arthralgias and Denies joint swelling Skin/Breast Denies rash Neuro Denies memory loss and Denies seizure-like activity Psych Denies abnormal sleep pattern, Denies anxiety and Denies memory loss Endo Denies excessive sweating, Denies fatigue and Denies heat intolerance Ralf/Lymph Denies easy bruising Aller/Immun Denies itchy eyes, Denies seasonal rhinorrhea and Denies wheezing Physical Exam Vital Signs: Last Vital Signs Pulse 87 12/21/23 14:34 BP 112/62 12/21/23 14:34 Pulse Ox 95 12/21/23 14:34 Oxygen Delivery Method Room Air 12/21/23 14:34 BMI result Body Mass Index 41.2 Const General: no acute distress and alert Nutritional Appearance: not obese Orientation/consciousness: Other orientation findings ( oriented) HEENT Head: Yes atraumatic Eyes General: appearance normal, both eyes and all related structures Sclerae: sclerae normal EOM: EOMs intact bilaterally Neck Neck: Yes supple Lymphatic: no lymphadenopathy noted Resp Effort & Inspection: normal respiratory effort and no use of accessory muscles Auscultation: clear to auscultation bilaterally Cardio Rate: regular rate Rhythm: regular rhythm Heart sounds: no gallops, no murmurs and no rubs Skin General skin exam: other ( warm) Extrem General: No clubbing, No cyanosis and No edema Assessment & Plan Assessment & Plan (1) Chronic cough: Code(s): R05.3 - Chronic cough Category: Medical Plan: Essentially negative workup so far. Will obtain CT chest to rule out early interstitial lung disease. (2) Obstructive sleep apnea: Comment: Severe degree of KRISTIN. AHI 47/hr with oxygen jeremiah was 75%. Code(s): G47.33 - Obstructive sleep apnea (adult) (pediatric) Category: Medical Plan: Well controlled on current CPAP therapy. (3) ILD (interstitial lung disease): Code(s): J84.9 - Interstitial pulmonary disease, unspecified Category: Medical Plan: Will obtain CT chest for further evaluation. Orders: Orders CT chest wo IV con Today J84.9 - Interstitial pulmonary disease, unspecified Coding Level of Care Code New Pt Level 4 (69059) Diagnoses Chronic cough R05.3 Obstructive sleep apnea G47.33 ILD (interstitial lung disease) J84.9
[2023-12-21 14:34] VITALS: BP 112/62; PULSE 87; O2SAT 95; BMI 41.2
== END 2023-12-21 15:02 | disposition home or self-care (01) ==
PROVIDERS: PCP Internal Medicine; Visit Provider Internal Medicine Pulmonary Disease
DX: R05.3 Chronic cough (principal); G47.33 Obstructive sleep apnea (adult) (pediatric); J84.9 Interstitial pulmonary disease, unspecified
CPT/HCPCS: 99204

== ENCOUNTER → 2023-12-21 14:29 | Outpatient (BNVA) | payer OTHER, SELFPAY | PROVIDERS: PCP Internal Medicine; Visit Provider Internal Medicine Pulmonary Disease ==

== ENCOUNTER 2023-12-29 08:56 | Outpatient (REF) | payer OTHER, SELFPAY ==
[2023-12-29 10:08] LABS: MANUAL DIFF FLAG NO
[2023-12-29 10:18] LABS: Basophils Percent Auto 0.6 % (0-2); Eosinophils Absolute Auto 0.2 X10*3/uL (0.0-0.4); Eosinophils Percent Auto 2.8 % (0-4); Hemoglobin 14.3 g/dl (14.0-18.0); Imm Gran Abs Auto 0.01 X10*3/uL (0.00-0.03); Imm Gran Pct Auto 0.2 % (0.0-0.4); Lymphocytes Percent Auto 15.4 % (20-40); Mean Corpuscular Hemoglobin 30.6 pg (27.0-33.0); Mean Corpuscular Volume 89.9 fL (80.0-98.0); Mean Platelet Volume 11.1 fL (9.4-12.4); Monocytes Absolute Auto 0.4 X10*3/uL (0.1-1.2); Monocytes Percent Auto 6.4 % (2-11); Neutrophils Absolute Auto 4.8 x10*3/uL (2.0-8.3); Neutrophils Percent Auto 74.6 % (45-73); Platelet Count 191 X10*3/uL (160-400); Red Blood Count 4.67 X10*6/uL (4.60-5.80); Red Cell Distribution Width 12.7 % (11.0-16.0); White Blood Count 6.4 X10*3/uL (4.8-10.8)
[2023-12-29 10:22] LABS: Estimated Average Glucose 143 mg/dL; Hemoglobin A1c % 6.6 % (<6.0)
[2023-12-29 10:25] LABS: Alanine Aminotransferase 36 U/L (0-40); Albumin Level 4.2 g/dL (3.5-5.0); Alkaline Phosphatase 89 U/L (39-117); Anion Gap 12 (12-20); Aspartate Amino Transferase 22 U/L (5-37); Bilirubin Total 0.5 mg/dL (0.0-1.0); Blood Urea Nitrogen 30 mg/dL (9-16); Calcium 10.1 mg/dL (8.4-10.2); Carbon Dioxide 27 mmol/L (22-29); Chloride 103 mmol/L (96-108); Cholesterol 80 mg/dL (<200); Estimated Glomerular Filt Rate 45; Glucose Fasting 187 mg/dL (60-99); HDL Cholesterol 35 mg/dL (>40); LDL Cholesterol Calculated 18 mg/dL (<100); Potassium 4.5 mmol/L (3.3-5.1); Sodium 137 mmol/L (135-145); Total Protein 6.8 g/dL (6.5-8.0); Triglycerides 137 mg/dL (<150)
== END 2023-12-29 08:57 | disposition home or self-care (01) ==
LOC: HO.HMGCLDS 08:56
PROVIDERS: PCP Internal Medicine; Visit Provider Internal Medicine
DX: E11.42 Type 2 diabetes mellitus with diabetic polyneuropathy (principal); G90.523 Complex regional pain syndrome I of lower limb, bilateral; I10 Essential (primary) hypertension; E78.9 Disorder of lipoprotein metabolism, unspecified; F33.9 Major depressive disorder, recurrent, unspecified; G25.81 Restless legs syndrome; R05.3 Chronic cough; E66.01 Morbid (severe) obesity due to excess calories; Z79.4 Long term (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
CPT/HCPCS: 36415; 80053; 80061; 83036; 85025

== ENCOUNTER 2024-01-04 09:22 | Outpatient (AMB) | payer OTHER, SELFPAY ==
[2024-01-04 09:29] VITALS: BP 116/64; PULSE 84; O2SAT 96; BMI 41.5
--- NOTE | 2024-01-04 09:29 | A.OFFPC_ITS ---
Vital Signs 01/04/24 09:29 Height 6 ft Weight 306 lb 2 oz BMI 41.5 BP 116/64 Blood Pressure Location Rt brachial Position Sitting Pulse 84 Pulse Source Pulse Oximeter Pulse Oximetry (%) 96 Oxygen Delivery Method Room Air Intake Visit Reasons: diabetes f/u - see comments Allergies No Known Allergies Allergy (Verified 01/04/24 09:32) Medication List - Last Reconciled 01/04/24 by Gabby Kelly MD allopurinol 300 mg PO DAILY amlodipine 5 mg PO DAILY aripiprazole 5 mg PO DAILY aspirin (Erick Low Dose Aspirin) 81 mg PO DAILY 90 days atorvastatin 20 mg PO DAILY 90 days blood sugar diagnostic (Pantry Ultra Test strips) Test blood sugar once a day bupropion HCl XL 300 mg PO QAM duloxetine 60 mg PO BEDTIME flash glucose scanning reader ([employer] Sonido 2 [place]) As directed flash glucose sensor ([employer] Sonido 2 Sensor kit) As directed Lantus Solostar U-100 Insulin (insulin glargine) 50 units (0.5 mL) subcut QPM 90 days NS losartan 100 mg PO DAILY pen needle, diabetic (AboutTime Pen Needle) As directed penicillin V potassium 250 mg PO BID 90 days potassium citrate ER 20 mEq (2 x 10 mEq (1,080 mg)) PO BID 90 days spironolacton-hydrochlorothiaz 25-25 mg 1 tab PO DAILY tadalafil 20 mg PO ONCE PRN 30 days tadalafil 10 mg PO DAILY 90 days trazodone 100 mg PO BEDTIME Tobacco use date assessed: 01/04/24 Dental Screening Dental Screen Date: 01/04/24 Did you have a dental visit in the last 12 months?: Yes Did you have a dental problem in the last 6 months where you did not have access to dental care?: No Was dental information given to patient?: Patient has dentist HPI diabetes f/u - see comments HPI Details 58-year-old gentleman came today regular follow-up appointment Continued to have chronic irritated cough Patient has already tried using PPI for 6 weeks without any relief Patient has been evaluated by ENT specialist, and was told that his chronic cough is not because of his sinuses It was recommended that he sees nuisance wildlife specialist, patient has already tried maintenance inhaler which did not help him with his coughing He has seen Dr. Gómez and CT scan of lungs were ordered Creatinine is elevated 1.6 , patient have chronic diabetic nephropathy he is established with Nephrology His hemoglobin A1c is 6.6 currently he is taking long-acting insulin 50 units only At times he is having sugar spike, for that I would recommend to keep a food diary and avoid the foods which is causing the spike Other providers patient is seeing our Pain Management [facility] for the management of complex regional pain syndrome Patient is requesting a referral to [facility] pain management for 2nd opinion, referral is placed Dr. Gera Garsia neurology for obstructive sleep apnea Dr. 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 Diabetes 1.5, managed as type 1 Complex regional pain syndrome of both lower extremities Diabetic peripheral neuropathy Spondylosis of lumbar region without myelopathy or radiculopathy Surgical History S/P placement of nerve stimulator Hx of lithotripsy Hx of colonoscopy Family History Other Mental health disorder Social History Housing: Condominium Alcohol intake: never Patient Tobacco Use Status: Never used Tobacco e-Cigarette/Vaping Use: Never Used Second Hand Smoke Exposure: No service: No Current occupational status: disabled Cognitive needs: No Hearing needs: No Vision needs: Yes Questionnaire Thrive Questionnaire Date Thrive assessed: 09/24/23 AUDIT C Alcohol Use Questionnaire (AUDIT-C) 1. How often do you have a drink containing alcohol?: Never 3. How often do you have six or more drinks on one occasion?: Never Total Score: 0 Score Reviewed/Action Taken: Yes CRISTOBAL-7 AMB Questionnaire CRISTOBAL-7 Date CRISTOBAL - 7 assessed: 09/24/23 Source: Developed by Drs. Ken Padilla, Vandana Magallon, Janusz Barlow and colleagues, with an educational nick from [email or web address]. Review of Systems Const Denies chills and Denies fever(s) ENT Denies epistaxis and Denies nasal discharge Card Denies chest pain Resp Denies chest congestion, Denies cough and Denies hemoptysis GI Denies diarrhea and Denies nausea Skin/Breast Denies rash Neuro Reports no additional complaints Psych Reports no additional complaints Endo Reports no additional complaints Physical exam (Primary Care) Vital Signs: Last Vital Signs Pulse 84 01/04/24 09:29 BP 116/64 01/04/24 09:29 Pulse Ox 96 01/04/24 09:29 Oxygen Delivery Method Room Air 01/04/24 09:29 BMI result Body Mass Index 41.5 Tobacco/Smoking Status: Tobacco use Status Tobacco use date assessed 01/04/24 01/04/24 09:33 Patient Tobacco Use Status Never used Tobacco 01/04/24 09:29 e-Cigarette/Vaping Use Never Used 01/04/24 09:29 Thrive Assessment: Date of Thrive Assessment Date Thrive assessed 09/24/23 01/04/24 09:29 Const General: cooperative, comfortable and no acute distress Orientation/consciousness: patient oriented x3 HENMT Head: Yes normocephalic Eyes General: appearance normal, both eyes and all related structures Neck Neck: Yes supple Resp Effort & Inspection: normal respiratory effort, no cough and no stridor Cardio Rhythm: regular rhythm Heart sounds: S1 normal heart sound present and S2 normal heart sound present Skin General skin exam: turgor normal Neuro General: patient oriented x3, tone normal and moves all extremities Extrem Right lower extremity: no edema Left lower extremity: no edema Assessment and Plan Assessment & Plan (1) Diabetes 1.5, managed as type 1: Code(s): E13.9 - Other specified diabetes mellitus without complications (2) Chronic cough: Code(s): R05.3 - Chronic cough (3) Complex regional pain syndrome of both lower extremities: Code(s): G90.523 - Complex regional pain syndrome I of lower limb, bilateral Qualifiers: Complex regional pain syndrome type: type I Qualified Code(s): G90.523 - Complex regional pain syndrome I of lower limb, bilateral (4) Diabetic peripheral neuropathy: Code(s): E11.42 - Type 2 diabetes mellitus with diabetic polyneuropathy (5) prison (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: Code(s): Z79.4 - technician terminal and repeater (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 (6) 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, essential: Code(s): I10 - Essential (primary) hypertension (7) Lipid disorder: Code(s): E78.9 - Disorder of lipoprotein metabolism, unspecified (8) Depression, major, recurrent: Code(s): F33.9 - Major depressive disorder, recurrent, unspecified Qualifiers: Active/Remission status: currently active Major depression episode severity: moderate Qualified Code(s): F33.1 - Major depressive disorder, recurrent, moderate (9) Restless legs syndrome (RLS): Code(s): G25.81 - Restless legs syndrome (10) Diabetic nephropathy: Code(s): E11.21 - Type 2 diabetes mellitus with diabetic nephropathy Qualifiers: Diabetes mellitus type: due to underlying condition Qualified Code(s): E08.21 - Diabetes mellitus due to underlying condition with diabetic nephropathy (11) Morbid obesity due to excess calories: Code(s): E66.01 - Morbid (severe) obesity due to excess calories (12) Spondylosis of lumbar region without myelopathy or radiculopathy: Code(s): M47.816 - Spondylosis without myelopathy or radiculopathy, lumbar region Plan 58-year-old gentleman came today regular follow-up appointment Continued to have chronic irritated cough Patient has already tried using PPI for 6 weeks without any relief Patient has been evaluated by ENT specialist, and was told that his chronic cough is not because of his sinuses It was recommended that he sees nuisance wildlife specialist, patient has already tried maintenance inhaler which did not help him with his coughing He has seen Dr. Gómez and CT scan of lungs were ordered Creatinine is elevated 1.6 , patient have chronic diabetic nephropathy he is established with Nephrology His hemoglobin A1c is 6.6 currently he is taking long-acting insulin 50 units only At times he is having sugar spike, for that I would recommend to keep a food diary and avoid the foods which is causing the spike Other providers patient is seeing our Pain Management [facility] for the management of complex regional pain syndrome Patient is requesting a referral to [facility] pain management for 2nd opinion, referral is placed Dr. Gera Garsia neurology for obstructive sleep apnea Dr. Thompson urology for erectile dysfunction Psychiatry for depression and anxiety management And nephrology BMI is elevated patient is trying to lose weight Medication list reviewed Follow-up 3 or 4 months 45 minute spent in care of this patient Including reviewing pain management notes, labs, [id number] with the patient Charting, coordination of care Orders: Referrals Pain Management Referral G90.523 - Complex regional pain syndrome I of lower limb, bilateral, M47.816 - Spondylosis without myelopathy or radiculopathy, lumbar region Coding Level of Care Code Est Pt Level 5 (09108) Diagnoses Diabetes 1.5, managed as type 1 E13.9 Chronic cough R05.3 Complex regional pain syndrome type 1 of both lower extremities G90.523 Complex regional pain syndrome type: type I Diabetic peripheral neuropathy E11.42 technician terminal and repeater (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
== END 2024-01-04 11:23 | disposition home or self-care (01) ==
PROVIDERS: PCP Internal Medicine; Visit Provider Internal Medicine
DX: E11.42 Type 2 diabetes mellitus with diabetic polyneuropathy (principal); Z79.4 Long term (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; E66.01 Morbid (severe) obesity due to excess calories; Z68.41 Body mass index [BMI] 40.0-44.9, adult; F33.1 Major depressive disorder, recurrent, moderate; R05.3 Chronic cough; G90.523 Complex regional pain syndrome I of lower limb, bilateral; I10 Essential (primary) hypertension; E78.9 Disorder of lipoprotein metabolism, unspecified; G25.81 Restless legs syndrome; M47.816 Spondylosis without myelopathy or radiculopathy, lumbar region
CPT/HCPCS: 99215

== ENCOUNTER 2024-01-26 16:21 | Outpatient (REF) | payer OTHER, SELFPAY ==
--- NOTE | ~2024-01-26 | CT_ITS ---
EXAMINATION: CT CHEST WITHOUT CONTRAST CLINICAL INFORMATION: Interstitial lung disease. COMPARISON: CT chest dated 03/08/2020. TECHNIQUE: Multidetector volumetric CT imaging of the chest was done. Axial MIP volume rendering provided. Sagittal and coronal reformatted images were obtained. This CT examination was performed using dose optimization techniques as appropriate, variously including the following: *Automated exposure control *Adjustment of mA and/or kV according to patient size (this includes techniques or standardized protocols for targeted exams where dose is matched to indication/reason for exam; i.e. extremities or head) *Use of iterative reconstruction technique DLP: 391 mGy-cm FINDINGS: RENEWALS MANAGER: The lungs are symmetrically well expanded and grossly clear. LUNGS: There are a few bilateral benign, calcified granulomas. No nodule, mass, infiltrate or groundglass opacity is seen. There is no generalized increase in peripheral interlobular septal markings. There is minimal linear scar/subsegmental atelectasis within the anteromedial basal segment of the left lower lobe and at the lateral right base, without associated focal airway obstruction. No generalized small airway thickening is seen. No significant air trapping is noted. The central airways appear patent. MEDIASTINUM: The thyroid is unremarkable. There is no thoracic aortic aneurysm [or dissection]. There are atherosclerotic calcifications of the great vessel origins and thoracic aorta. No mediastinal or hilar lymphadenopathy is seen. CORONARY ARTERY CALCIFICATION: None visualized on this study. PLEURA: There is no pleural effusion. No pleural mass or thickening. AXILLA: No lymphadenopathy. UPPER ABDOMEN: Unremarkable. OSSEOUS STRUCTURES: There is multi-level thoracic spondylosis, most pronounced at T10-11 and T11-12. No acute or aggressive osseous abnormality is seen. A spinal stimulator device is noted. CT/CT chest wo IV con IMPRESSION: 1. There are old benign, calcified granulomas. No noncalcified nodule, mass, infiltrate or groundglass opacity is seen. 2. There is again no generalized increase in peripheral interlobular septal markings. 3. There is minimal bibasilar linear scar/subsegmental atelectasis, without associated focal airway obstruction. 4. No thoracic lymphadenopathy or pleural effusion is seen. 5. There are degenerative changes of the spine. Fleischner guidelines were followed. Electronically signed by: Tyrell Bautista MD 02/22/2024 12:33 PM EDT
== END 2024-01-26 16:22 | disposition home or self-care (01) ==
LOC: HO.CT 16:21
PROVIDERS: Visit Provider Internal Medicine Pulmonary Disease
DX: J84.9 Interstitial pulmonary disease, unspecified (principal)
CPT/HCPCS: 71250

== ENCOUNTER 2024-02-15 12:02 | Outpatient (AMB) | payer OTHER, SELFPAY ==
[2024-02-15 12:05] VITALS: BP 124/72; PULSE 81; O2SAT 98; BMI 41.2
--- NOTE | 2024-02-15 12:05 | HO.NEPHOV_ITS ---
Vital Signs 02/15/24 12:05 Height 6 ft Weight 304 lb BMI 41.2 BP 124/72 Blood Pressure Location Rt brachial Position Sitting Pulse 81 Pulse Source Pulse Oximeter Pulse Oximetry (%) 98 Oxygen Delivery Method Room Air Intake Visit Reasons: CKD/ 4 MO FU/ Conf Warp Worker Required: No Accompanied by: Self / Same As Patient Allergies No Known Allergies Allergy (Verified 02/15/24 12:07) Medication List - Last Reconciled 02/15/24 by Abilio Garsia MD allopurinol 300 mg PO DAILY amlodipine 5 mg PO DAILY aripiprazole 5 mg PO DAILY aspirin (Erick Low Dose Aspirin) 81 mg PO DAILY 90 days atorvastatin 20 mg PO DAILY 90 days blood sugar diagnostic ([employer] Ultra Test strips) Test blood sugar once a day bupropion HCl XL 300 mg PO QAM duloxetine 60 mg PO BEDTIME flash glucose scanning reader ([employer] Sonido 2 [place]) As directed flash glucose sensor ([employer] Sonido 2 Sensor kit) As directed Lantus Solostar U-100 Insulin (insulin glargine) 50 units (0.5 mL) subcut QPM 90 days NS losartan 100 mg PO DAILY pen needle, diabetic (AboutTime Pen Needle) As directed penicillin V potassium 250 mg PO BID 90 days potassium citrate ER 20 mEq (2 x 10 mEq (1,080 mg)) PO BID 90 days spironolacton-hydrochlorothiaz 25-25 mg 1 tab PO DAILY tadalafil 20 mg PO ONCE PRN 30 days tadalafil 10 mg PO DAILY 90 days trazodone 100 mg PO BEDTIME HPI Comments Details: 58-year-old man with a history of diabetes mellitus obesity and obstructive sleep apnea with history of nephrolithiasis is here for evaluation of renal function He is being followed by Urology. On salt substitute [facility] Medical History Restless legs syndrome (RLS) Obstructive sleep apnea Chronic pain syndrome Ureteral calculus Fatty liver Gout Kidney stones Depression, major, recurrent Lipid disorder 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, essential FPC (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 Diabetes 1.5, managed as type 1 Complex regional pain syndrome of both lower extremities Diabetic peripheral neuropathy Spondylosis of lumbar region without myelopathy or radiculopathy Surgical History S/P placement of nerve stimulator Hx of lithotripsy Hx of colonoscopy Family History Other Mental health disorder Social History Housing: Condominium Alcohol intake: never Patient Tobacco Use Status: Never used Tobacco e-Cigarette/Vaping Use: Never Used Second Hand Smoke Exposure: No service: No Current occupational status: disabled Cognitive needs: No Hearing needs: No Vision needs: Yes Physical Exam Vital Signs: Last Vital Signs Pulse 81 02/15/24 12:05 BP 124/72 02/15/24 12:05 Pulse Ox 98 02/15/24 12:05 Oxygen Delivery Method Room Air 02/15/24 12:05 BMI result Body Mass Index 41.2 Const General: comfortable; No acute distress Orientation/consciousness: patient oriented x3 Eyes General: appearance normal, both eyes and all related structures Visual Espinoza: normal visual espinoza by confrontation Neck Neck: Yes supple and Yes no JVD Resp Effort & Inspection: normal respiratory effort and respiratory effort not decreased Auscultation: rhonchi Cardio Palpation: no palpable S3 and no palpable S4 Heart sounds: no rubs GI Inspection: Yes normal to inspection Palpation (GI): Soft to palpation Percussion: Yes normal to percussion Auscultation: normal bowel sounds General: Yes no CVA tenderness Back/Spine/Pelvis Back: no CVA tenderness Skin General skin exam: no petechiae and no purpura Neuro General: patient oriented x3 and no focal motor deficits Extrem General: No clubbing and No edema Results Reviewed Nephrology Results: Hgb 14.3 g/dl (14.0-18.0) 12/29/23 WBC 6.4 X10*3/uL (4.8-10.8) 12/29/23 Plt Count 191 X10*3/uL (160-400) 12/29/23 Sodium 137 mmol/L (135-145) 12/29/23 Potassium 4.5 mmol/L (3.3-5.1) 12/29/23 Chloride 103 mmol/L (96-108) 12/29/23 Carbon Dioxide 27 mmol/L (22-29) 12/29/23 BUN 30 mg/dL (9-16) H 12/29/23 Creatinine 1.60 mg/dL (0.5-1.4) H 12/29/23 Calcium 10.1 mg/dL (8.4-10.2) 12/29/23 Assessment & Plan Assessment & Plan (1) Chronic kidney disease: Code(s): N18.9 - Chronic kidney disease, unspecified Category: Medical Qualifiers: Chronic kidney disease stage: stage 3 (moderate) Chronic kidney disease stage 3 subtype: unspecified whether 3a or 3b Qualified Code(s): N18.30 - Chronic kidney disease, stage 3 unspecified Plan 56-year-old man with hypertension CKD and nephrolithiasis. Given the history of nephrolithiasis Hypocitraturia ON potassium citrate and Aldactazide. encouraged him to stay on low-sodium diet He should avoid salt substitute. We will monitor serum potassium closely. Encouraged him to use CPAP regularly. He continue to avoid nephrotoxic agents including NSAIDs. Blood pressure well controlled. Maintain hemoglobin A1c less than 7%. Discussed weight loss. Orders: Orders Basic Metabolic Panel 5 Months N18.30 - Chronic kidney disease, stage 3 unspecified Medications: Refilled losartan 100 mg PO DAILY 90 tabs 1RF Coding Level of Care Code Est Pt Level 4 (95794) Diagnoses Stage 3 chronic kidney disease, unspecified whether stage 3a or 3b CKD N18.30 Chronic kidney disease stage: stage 3 (moderate) Chronic kidney disease stage 3 subtype: unspecified whether 3a or 3b
== END 2024-02-15 12:19 | disposition home or self-care (01) ==
PROVIDERS: PCP Internal Medicine; Visit Provider Internal Medicine Hypertension Specialist
DX: N18.30 Chronic kidney disease, stage 3 unspecified (principal)
CPT/HCPCS: 99214

== ENCOUNTER → 2024-02-15 12:02 | Outpatient (BNVA) | payer OTHER, SELFPAY | PROVIDERS: PCP Internal Medicine; Visit Provider Internal Medicine Hypertension Specialist ==

== ENCOUNTER 2024-02-16 13:04 | Outpatient (AMB) | payer OTHER, SELFPAY ==
--- NOTE | 2024-02-16 13:05 | A.OFFVIS_ITS ---
Vital Signs 3 02/16/24 13:10 Height 6 ft Weight 308 lb BMI 41.8 Pulse 96 Pulse Source Pulse Oximeter Temp 98.8 F Temp Source Oral Pulse Oximetry (%) 98 Oxygen Delivery Method Room Air Intake Visit Reasons: f/u, 1 yr. Cellulitis Allergies No Known Allergies Allergy (Verified 02/25/24 13:06) HPI HPI f/u, 1 yr. Cellulitis: Details: He reports doing well. He takes PCN V 250 mg bid. He has no complaints. 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 Diabetes 1.5, managed as type 1 Complex regional pain syndrome of both lower extremities Diabetic peripheral neuropathy Spondylosis of lumbar region without myelopathy or radiculopathy Surgical History S/P placement of nerve stimulator Hx of lithotripsy Hx of colonoscopy Family History Other Mental health disorder Social History Housing: Condominium Alcohol intake: never Patient Tobacco Use Status: Never used Tobacco e-Cigarette/Vaping Use: Never Used Second Hand Smoke Exposure: No service: No Current occupational status: disabled Cognitive needs: No Hearing needs: No Vision needs: Yes Review of Systems Const All systems reviewed & are unremarkable except as noted in HPI and below Physical Exam Vital Signs: Last Vital Signs Temp 98.8 F 02/16/24 13:10 Pulse 96 02/16/24 13:10 Pulse Ox 98 02/16/24 13:10 Oxygen Delivery Method Room Air 02/16/24 13:10 BMI result Body Mass Index 41.8 Const Other: General: cooperative Orientation/consciousness: patient oriented x3 HEENT Head: Yes normal to inspection Mouth: Normal oral and palatal mucosa present Eyes General: appearance normal, both eyes and all related structures Pupils: Equal, round and reactive pupils present Resp Effort & Inspection: normal respiratory effort Cardio Rate: regular rate Rhythm: regular rhythm GI Palpation (GI): Soft to palpation and nontender General: Yes no CVA tenderness Back/Spine/Pelvis Back: no CVA tenderness Skin General skin exam: no rashes or lesions noted Neuro General: patient oriented x3 Cranial nerves: Yes CN's II-XII intact bilaterally and Yes Equal, round and reactive pupils present Extrem General: Yes normal to inspection Psych Appearance: grossly normal Assessment & Plan Assessment & Plan (1) Cellulitis: Comment: He has not had any cellulitis last year Code(s): L03.90 - Cellulitis, unspecified Category: Medical Qualifiers: Site of cellulitis: other site Qualified Code(s): L03.818 - Cellulitis of other sites Plan Wishes to continue PCN prophylaxis and agree. Return in one year. Medications: Refilled 2 penicillin V potassium 250 mg PO BID 180 tabs 3RF 90 days Coding Level of Care Code Est Pt Level 3 (61867) Diagnoses Cellulitis of other specified site L03.818 Site of cellulitis: other site
[2024-02-16 13:10] VITALS: PULSE 96; TEMP 37.1; O2SAT 98; BMI 41.8
== END 2024-02-16 14:00 | disposition home or self-care (01) ==
LOC: HO.HID 13:04
PROVIDERS: PCP Internal Medicine; Visit Provider Internal Medicine
DX: L03.818 Cellulitis of other sites (principal)
CPT/HCPCS: 99213

== ENCOUNTER → 2024-02-16 13:04 | Outpatient (BNVA) | payer OTHER, SELFPAY | PROVIDERS: PCP Internal Medicine; Visit Provider Internal Medicine ==

== ENCOUNTER 2024-02-25 12:49 | Outpatient (AMB) | payer OTHER, SELFPAY ==
--- NOTE | 2024-02-25 13:02 | A.OFFVIS_ITS ---
Vital Signs 02/25/24 13:04 Weight 302 lb 0.533 oz BP 122/68 Blood Pressure Location Rt brachial Position Sitting Pulse 89 Pulse Source Pulse Oximeter Pulse Oximetry (%) 97 Oxygen Delivery Method Room Air Intake Visit Reasons: Cough/CT Follow Up Allergies No Known Allergies Allergy (Verified 02/25/24 13:06) Medication List - Last Reconciled 02/25/24 by Kaya Hdez LPN allopurinol 300 mg PO DAILY amlodipine 5 mg PO DAILY aripiprazole 5 mg PO DAILY aspirin (Erick Low Dose Aspirin) 81 mg PO DAILY 90 days atorvastatin 20 mg PO DAILY 90 days blood sugar diagnostic ([employer] Test strips) Test blood sugar once a day bupropion HCl XL 300 mg PO QAM duloxetine 60 mg PO BEDTIME flash glucose scanning reader ([employer] Sonido 2 [place]) As directed flash glucose sensor ([employer] Sonido 2 Sensor kit) As directed Lantus Solostar U-100 Insulin (insulin glargine) 50 units (0.5 mL) subcut QPM 90 days NS losartan 100 mg PO DAILY pen needle, diabetic ([employer] Pen Needle) As directed penicillin V potassium 250 mg PO BID 90 days potassium citrate ER 20 mEq (2 x 10 mEq (1,080 mg)) PO BID 90 days spironolacton-hydrochlorothiaz 25-25 mg 1 tab PO DAILY trazodone 100 mg PO BEDTIME HPI HPI Cough/CT Follow Up: Details: 58-year-old gentleman, nonsmoker, with underlying chronic cough over 2 years intermittently productive of clear sputum with no changes in his cough with body position, food intake, or time of day. Patient has been tried on empiric PPI, inhaled corticosteroids, ppi, antihistamines, and gabapentin. He was evaluated by ENT with no reason for his cough noted. He denies having any acid reflux. Patient denies family history of lung disease. He denies exposure to industrial dusts. He does have underlying KRISTIN treated with CPAP by sleep specialist. His recent PFT is essentially normal. His CT chest shows no signs of underlying interstitial lung disease. 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 Diabetes 1.5, managed as type 1 Complex regional pain syndrome of both lower extremities Diabetic peripheral neuropathy Spondylosis of lumbar region without myelopathy or radiculopathy Surgical History S/P placement of nerve stimulator Hx of lithotripsy Hx of colonoscopy Family History Other Mental health disorder Social History Housing: Condominium Alcohol intake: never Patient Tobacco Use Status: Never used Tobacco e-Cigarette/Vaping Use: Never Used Second Hand Smoke Exposure: No service: No Current occupational status: disabled Cognitive needs: No Hearing needs: No Vision needs: Yes Review of Systems Const Denies daytime sleepiness, Denies excessive sweating, Denies fatigue, Denies fever(s), Denies lethargy, Denies malaise, Denies night sweats, Denies snoring and Denies weight loss Eyes Denies blurry vision and Denies itchy eyes ENT Denies nasal congestion, Denies post nasal drip, Denies sinus pain, Denies sinus pressure and Denies other ( Thrush) Card Denies chest pain, Denies pedal edema, Denies dyspnea, Denies orthopnea and Denies paroxysmal nocturnal dyspnea Resp Reports cough, Denies hemoptysis, Reports excessive phlegm production, Denies dyspnea, Denies snoring and Denies wheezing GI Denies abdominal pain and Denies heartburn Musc Denies myalgias, Denies arthralgias and Denies joint swelling Skin/Breast Denies rash Neuro Denies memory loss and Denies seizure-like activity Psych Denies abnormal sleep pattern, Denies anxiety and Denies memory loss Endo Denies excessive sweating, Denies fatigue and Denies heat intolerance Ralf/Lymph Denies easy bruising Aller/Immun Denies itchy eyes, Denies seasonal rhinorrhea and Denies wheezing Physical Exam Vital Signs: Last Vital Signs Pulse 89 02/25/24 13:04 BP 122/68 02/25/24 13:04 Pulse Ox 97 02/25/24 13:04 Oxygen Delivery Method Room Air 02/25/24 13:04 Const General: no acute distress and alert Nutritional Appearance: not obese Orientation/consciousness: Other orientation findings ( oriented) HEENT Head: Yes atraumatic Eyes General: appearance normal, both eyes and all related structures Sclerae: sclerae normal EOM: EOMs intact bilaterally Neck Neck: Yes supple Lymphatic: no lymphadenopathy noted Resp Effort & Inspection: normal respiratory effort and no use of accessory muscles Auscultation: clear to auscultation bilaterally Cardio Rate: regular rate Rhythm: regular rhythm Heart sounds: no gallops, no murmurs and no rubs Skin General skin exam: other ( warm) Extrem General: No clubbing, No cyanosis and No edema Assessment & Plan Assessment & Plan (1) Chronic cough: Code(s): R05.3 - Chronic cough Category: Medical Plan: Cephalexin Shiley with negative workup. Will referred to [facility] cough clinic. Orders: Referrals Pulmonology Referral R05.3 - Chronic cough Coding Level of Care Code Est Pt Level 3 (66811) Diagnoses Chronic cough R05.3
[2024-02-25 13:04] VITALS: BP 122/68; PULSE 89; O2SAT 97
== END 2024-02-25 13:18 | disposition home or self-care (01) ==
PROVIDERS: PCP Internal Medicine; Visit Provider Internal Medicine Pulmonary Disease
DX: R05.3 Chronic cough (principal)
CPT/HCPCS: 99213

== ENCOUNTER → 2024-02-25 12:49 | Outpatient (BNVA) | payer OTHER, SELFPAY | PROVIDERS: PCP Internal Medicine; Visit Provider Internal Medicine Pulmonary Disease ==

== ENCOUNTER 2024-03-14 15:26 | Outpatient (REF) | payer OTHER, SELFPAY ==
--- NOTE | ~2024-03-14 | US_ITS ---
EXAMINATION: US RETROPERITONEAL LIMITED (RENAL ONLY) CLINICAL INFORMATION: Hypocitraturia. COMPARISON: Renal ultrasound 12/02/2022. TECHNIQUE: Real-time imaging of the kidneys. FINDINGS: RIGHT KIDNEY: 12.1 x 5.5 x 4.5 cm (SAG x AP x TRV). The kidney is normal in size, contour, and echogenicity. Renal cortical thickness is normal. No renal calculi or hydronephrosis. Simple appearing cyst in the interpolar kidney measuring 1.1 cm, for which no imaging follow-up is recommended, this is stable compared to 12/02/2022. LEFT KIDNEY: 12.4 x 7.2 x 7.8 cm (SAG x AP x TRV). The kidney is normal in size, contour, and echogenicity. Renal cortical thickness is normal. No calculi or focal parenchymal lesions. No hydronephrosis. US/US renal BI IMPRESSION: No acute sonographic abnormalities. Electronically signed by: Rajwinder Rodriguez MD 03/21/2024 03:53 PM EDT
== END 2024-03-14 15:27 | disposition home or self-care (01) ==
LOC: HO.HMGCX 15:26
PROVIDERS: PCP Internal Medicine; Visit Provider Urology
DX: R82.991 Hypocitraturia (principal)
CPT/HCPCS: 76775

== ENCOUNTER 2024-03-28 13:36 | Outpatient (AMB) | payer OTHER, SELFPAY ==
--- NOTE | 2024-03-28 13:40 | A.OFFVIS_ITS ---
Intake Visit Reasons: 6M Follow Up-Ultrasound(set) Intake Note: Patient is present for 6M F/U ULTRASOUND Urology Medication:POTASSIUM, ALLOPURINOL Antibiotic Allergy:NONE Blood Thinner:NONE Senior Housekeeper Required: No Allergies No Known Allergies Allergy (Verified 03/28/24 13:41) Medication List - Last Reconciled 03/28/24 by Sylvester Thompson MD allopurinol 300 mg PO DAILY amlodipine 5 mg PO DAILY aripiprazole 5 mg PO DAILY aspirin (Erick Low Dose Aspirin) 81 mg PO DAILY 90 days atorvastatin 20 mg PO DAILY 90 days blood sugar diagnostic ([employer] Test strips) Test blood sugar once a day bupropion HCl XL 300 mg PO QAM codeine-guaifenesin 10-100 mg/5 mL 10 mL PO Q4-6H PRN duloxetine 60 mg PO BEDTIME flash glucose scanning reader ([employer] Sonido 2 [place]) As directed flash glucose sensor ([employer] Sonido 2 Sensor kit) As directed Lantus Solostar U-100 Insulin (insulin glargine) 50 units (0.5 mL) subcut QPM 90 days NS losartan 100 mg PO DAILY pen needle, diabetic ([employer] Pen Needle) As directed penicillin V potassium 250 mg PO BID 90 days pioglitazone 15 mg PO DAILY pioglitazone 15 mg PO DAILY potassium citrate ER 20 mEq (2 x 10 mEq (1,080 mg)) PO BID 90 days spironolacton-hydrochlorothiaz 25-25 mg 1 tab PO DAILY trazodone 100 mg PO BEDTIME HPI Comments Details: Adama is a pleasant male. He is seen for the following urologic conditions - nephrolithiasis - hypocitrauria - erectile dysfunction Follow-up for erectile dysfunction Has been trying 20 mg daily ED no longer a concern Nephrolithiasis normal ultrasound Continued good response to potassium citrate and allopurinol Background diabetes, obstructive sleep apnea, dyslipidemia, depression, hypertension Twelve month imaging follow-up Erectile dysfunction Follow-up Trial daily tadalafil 10 mg with 20 mg on demand Nephrolithiasis Recurrent stone former Intervention - 05/18 right ESWL Indications - potassium citrate 20 mEq b.i.d. Urinalysis - 05/18 24 hour urine shows good volume with high sodium, low citrate - 12/17 good volume, improved sodium, improved citrate, improved pH, does have increased oxalate Imaging - 03/18 CT scan left distal ureter 3 mm stone, 6 mm stone on right side - 04/17 renal ultrasound right side 6 mm stone - 06/17 renal ultrasound no evidence of stone, hematoma on right side post ESWL - 12/17 renal ultrasound no stones - 12/18 renal ultrasound no stones - 12/19 renal ultrasound no evidence of stone Therapeutic plan - 12 months with imaging [facility] Medical History Restless legs syndrome (RLS) Obstructive sleep apnea Chronic pain syndrome Ureteral calculus Fatty liver Gout Kidney stones Depression, major, recurrent Lipid disorder 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, 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 Diabetes 1.5, managed as type 1 Complex regional pain syndrome of both lower extremities Diabetic peripheral neuropathy Spondylosis of lumbar region without myelopathy or radiculopathy Surgical History S/P placement of nerve stimulator Hx of lithotripsy Hx of colonoscopy Family History Other Mental health disorder Social History Housing: Condominium Alcohol intake: never Patient Tobacco Use Status: Never used Tobacco e-Cigarette/Vaping Use: Never Used Second Hand Smoke Exposure: No service: No Current occupational status: disabled Cognitive needs: No Hearing needs: No Vision needs: Yes Review of Systems Const All systems reviewed & are unremarkable except as noted in HPI and below Reports no additional complaints Card Reports no additional complaints and Denies syncope Resp Reports no additional complaints GI Reports no additional complaints Reports as per HPI and Denies change in libido Musc Reports no additional complaints Neuro Denies syncope Psych Denies change in libido Endo Denies change in libido Physical Exam Telemedicine evaluation Appropriate responses Regular breathing rate and rhythm Const General: cooperative, healthy appearing, comfortable and no acute distress Orientation/consciousness: patient oriented x3 HEENT Head: Yes normal to inspection Ears: hearing grossly normal bilaterally Face and sinus: Yes normal facial exam Mouth: moist mucous membranes Eyes General: appearance normal, both eyes and all related structures Neck Neck: Yes normal visual inspection Chest Chest palpation & inspection: normal inspection of the chest Resp Effort & Inspection: normal respiratory effort and able to speak in complete sentences GI Inspection: Yes normal to inspection Back/Spine/Pelvis Cervical Spine: normal cervical lordosis Thoracic/Lumbar Spine: thoracic and lumbar spine normal to inspection Skin General skin exam: no rashes or lesions noted Neuro General: patient oriented x3, gait normal, tone normal and moves all extremities Extrem General: Yes normal to inspection and Yes capillary refill normal Telehealth Telehealth Location of provider rendering services: practice address Location of patient: address on file Patient Identification confirmed using: Name, : Yes Telehealth method: voice only Patient verbally consented to treatment: Yes Patient verbally consented to billing insurance company: Yes Patient informed of any privacy concerns related to visit: Yes Assessment & Plan Assessment & Plan (1) Nephrolithiasis: Code(s): N20.0 - Calculus of kidney Category: Medical Plan Continue medications Twelve month follow-up Orders: Orders US renal BI 1 Month N20.0 - Calculus of kidney Patient Instructions: Imaging studies, laboratory and physical exam results were discussed and reviewed in detail. No major barriers to patient understanding were identified. An opportunity to ask questions regarding the treatment plan was provided. All questions were answered. The patient expressed understanding and agreement with the above treatment plan. The patient is aware they should contact our office by phone for worsening of their current condition or the appearance of new urologic symptoms. Compliance is encouraged with any medications and followup testing that is ordered. It is a privilege to participate in the urologic care of your patient. If you have any questions or concerns regarding treatment for the above conditions, or other urologic issues, please do not hesitate to contact me. The office telephone contact is [phone]. This note is constructed using voice recognition software. While every effort has been made to ensure accuracy escort service attendant errors may have been included. Yours sincerely, Dr Sylvester Thompson MD, [facility] - Urology Providers of Expert, Compassionate Care for the Genitourinary System Coding Level of Care Code Est Pt Level 3 (11312) Diagnoses Nephrolithiasis N20.0
== END 2024-03-28 14:02 | disposition home or self-care (01) ==
PROVIDERS: PCP Internal Medicine; Visit Provider Urology
DX: N20.0 Calculus of kidney (principal)
CPT/HCPCS: 99213

== ENCOUNTER → 2024-03-28 13:36 | Outpatient (BNVA) | payer OTHER, SELFPAY | PROVIDERS: PCP Internal Medicine; Visit Provider Urology ==

== ENCOUNTER 2024-05-15 07:28 | Outpatient (REF) | payer OTHER, SELFPAY ==
[2024-05-15 10:02] LABS: MANUAL DIFF FLAG NO
[2024-05-15 10:23] LABS: Basophils Percent Auto 0.5 % (0-2); Eosinophils Absolute Auto 0.1 X10*3/uL (0.0-0.4); Eosinophils Percent Auto 0.8 % (0-4); Hematocrit 41.9 % (42.0-52.0); Hemoglobin 14.6 g/dl (14.0-18.0); Imm Gran Abs Auto 0.03 X10*3/uL (0.00-0.03); Imm Gran Pct Auto 0.4 % (0.0-0.4); Lymphocytes Absolute Auto 0.8 X10*3/uL (1.2-4.9); Lymphocytes Percent Auto 10.1 % (20-40); Mean Corpuscular HGB Conc 34.8 g/dl (31.0-36.0); Mean Corpuscular Hemoglobin 31.3 pg (27.0-33.0); Mean Corpuscular Volume 89.9 fL (80.0-98.0); Mean Platelet Volume 10.9 fL (9.4-12.4); Monocytes Absolute Auto 0.4 X10*3/uL (0.1-1.2); Monocytes Percent Auto 5.2 % (2-11); Neutrophils Absolute Auto 6.5 x10*3/uL (2.0-8.3); Platelet Count 230 X10*3/uL (160-400); Red Blood Count 4.66 X10*6/uL (4.60-5.80); Red Cell Distribution Width 13.3 % (11.0-16.0); White Blood Count 7.8 X10*3/uL (4.8-10.8)
[2024-05-15 10:25] LABS: Estimated Average Glucose 140 mg/dL; Hemoglobin A1C 179.1058 umol/L; Hemoglobin A1c % 6.5 % (<6.0); Total Hemoglobin (HGBA1C) 3776.4482 umol/L
[2024-05-15 10:47] LABS: Alanine Aminotransferase 34 U/L (0-40); Albumin Level 4.2 g/dL (3.5-5.0); Alkaline Phosphatase 86 U/L (39-117); Anion Gap 12 (12-20); Aspartate Amino Transferase 30 U/L (5-37); Bilirubin Total 0.6 mg/dL (0.0-1.0); Blood Urea Nitrogen 25 mg/dL (9-16); Calcium 9.6 mg/dL (8.4-10.2); Carbon Dioxide 28 mmol/L (22-29); Chloride 102 mmol/L (96-108); Estimated Glomerular Filt Rate 41; Glucose Random 111 mg/dL (60-115); Potassium 4.1 mmol/L (3.3-5.1); Sodium 138 mmol/L (135-145); Total Protein 6.9 g/dL (6.5-8.0)
[2024-05-15 11:08] LABS: Creatinine Urine 131.65 mg/dL; Microalbumin Urine < 5.0 mg/L
== END 2024-05-15 07:29 | disposition home or self-care (01) ==
LOC: HO.HMGCLDS 07:28
PROVIDERS: PCP Internal Medicine; Visit Provider Internal Medicine
DX: Z00.01 Encounter for general adult medical examination with abnormal findings (principal); E66.01 Morbid (severe) obesity due to excess calories; E11.21 Type 2 diabetes mellitus with diabetic nephropathy; E11.69 Type 2 diabetes mellitus with other specified complication; N52.1 Erectile dysfunction due to diseases classified elsewhere; G47.10 Hypersomnia, unspecified; E55.9 Vitamin D deficiency, unspecified; R41.3 Other amnesia; M46.1 Sacroiliitis, not elsewhere classified; G25.81 Restless legs syndrome; G47.33 Obstructive sleep apnea (adult) (pediatric); F33.9 Major depressive disorder, recurrent, unspecified; E78.9 Disorder of lipoprotein metabolism, unspecified; I10 Essential (primary) hypertension; Z79.4 Long term (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; G90.523 Complex regional pain syndrome I of lower limb, bilateral; E11.42 Type 2 diabetes mellitus with diabetic polyneuropathy
CPT/HCPCS: 36415; 80053; 82043; 82570; 83036; 85025

== ENCOUNTER 2024-05-18 14:05 | Outpatient (AMB) | payer OTHER, SELFPAY ==
--- NOTE | 2024-05-18 14:12 | A.OFFVIS_ITS ---
Vital Signs 05/18/24 14:13 Height 6 ft Weight 312 lb BMI 42.3 Intake Visit Reasons: 1 yr f/u-Amnesia Intake Note: Patient presents for follow up Allergies No Known Allergies Allergy (Verified 05/18/24 14:16) HPI Comments Details: 57 y/o male patient presents with his for follow up of KRISTIN and memory loss.He has issues with his mask fitting . I do not have his compliance report today . he uses it everyday.His diabetes is not well controlled. He still has cognitive issues, trouble remembering conversations, has trouble finding ways in his neighborhood. He is also confused by long instructions. Pt usually likes to play video games, but is having difficulty playing complex video games lately. Denies difficulty driving or repeating same questions over. states that patient still takes care of all financial stuff and is good at it. The lab result reviewed, B12 level was 1377 and vitamin D and TSH was WNL. The BUN and creatitine level was elevated, he is followed by nephrology. Pt has family hx of autism, and thinks that he has autism. 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 Diabetes 1.5, managed as type 1 Complex regional pain syndrome of both lower extremities Diabetic peripheral neuropathy Spondylosis of lumbar region without myelopathy or radiculopathy Surgical History S/P placement of nerve stimulator Hx of lithotripsy Hx of colonoscopy Family History Other Mental health disorder Social History Housing: Condominium Alcohol intake: never Patient Tobacco Use Status: Never used Tobacco e-Cigarette/Vaping Use: Never Used Second Hand Smoke Exposure: No service: No Current occupational status: disabled Cognitive needs: No Hearing needs: No Vision needs: Yes Physical Exam Vital Signs: BMI result Body Mass Index 42.3 Const General: cooperative and no acute distress Nutritional Appearance: obese Limitations: no limitations HEENT Head: Yes normocephalic Ears: hearing grossly normal bilaterally Neck Neck: Yes full ROM and Yes supple Resp Effort & Inspection: normal respiratory effort and able to speak in complete sentences Psych Appearance: grossly normal Mental Status: mental status grossly normal Speech and movement: Normal speech and movement present Affect: normal affect Attitude: cooperative Thought process: Normal thought process present Thought content: Normal thought content present Insight: Good insight present (Psych) Judgement: Good judgement present (Psych) Results Reviewed Results Reviewed: 04/19 -MRI brain Mild chronic ischemic microangiopathy in the white matter of both parietal lobes. 2. No acute intracranial process. No evidence for infarction, hemorrhage, extra-axial fluid collection, space-occupying process, mass effect or hydrocephalus. 3. Mild paranasal sinus mucosal inflammatory changes. Assessment & Plan Assessment & Plan (1) Obstructive sleep apnea: Comment: Severe degree of KRISTIN. AHI 47/hr with oxygen jeremiah was 75%. Code(s): G47.33 - Obstructive sleep apnea (adult) (pediatric) Category: Medical (2) Memory changes: Code(s): R41.3 - Other amnesia Category: Medical (3) Peripheral neuropathy: Code(s): G62.9 - Polyneuropathy, unspecified Category: Medical Qualifiers: Peripheral neuropathy type: polyneuropathy associated with underlying disease Qualified Code(s): G63 - Polyneuropathy in diseases classified elsewhere Plan I will schedule him for a CPAP titration study to determine the ideal treatment pressure. Advised patient to check his blood sugar regularly to prevent hypoglycemia. Continue to use APAP [id number]. Advised patient to engage more social and physical activity. will monitor his cognition F/u pain clinic Orders: Orders RT PSG in-lab sleep titration Today G47.33 - Obstructive sleep apnea (adult) (pediatric) Coding Level of Care Code Est Pt Level 4 (73305) Complex EM visit Add On G2211 Diagnoses Obstructive sleep apnea G47.33 Memory changes R41.3 Polyneuropathy associated with underlying disease G63 Peripheral neuropathy type: polyneuropathy associated with underlying disease
[2024-05-18 14:13] VITALS: BMI 42.3
== END 2024-05-18 14:42 | disposition home or self-care (01) ==
PROVIDERS: PCP Internal Medicine; Visit Provider Psychiatry & Neurology Neurology
DX: G47.33 Obstructive sleep apnea (adult) (pediatric) (principal); R41.3 Other amnesia; G63 Polyneuropathy in diseases classified elsewhere
CPT/HCPCS: 99214

== ENCOUNTER → 2024-05-18 14:05 | Outpatient (BNVA) | payer OTHER, SELFPAY | PROVIDERS: PCP Internal Medicine; Visit Provider Psychiatry & Neurology Neurology ==

== ENCOUNTER 2024-05-19 14:49 | Outpatient (AMB) | payer OTHER, SELFPAY ==
[2024-05-19 14:51] VITALS: BP 120/68; PULSE 86; O2SAT 98; BMI 15.4
--- NOTE | 2024-05-19 14:51 | A.OFFPC_ITS ---
Vital Signs 05/19/24 14:51 Height 6 ft Weight 113 lb 6 oz BMI 15.4 BP 120/68 Blood Pressure Location Rt brachial Position Sitting Pulse 86 Pulse Source Pulse Oximeter Pulse Oximetry (%) 98 Oxygen Delivery Method Room Air Intake Visit Reasons: diabetes f/u Allergies No Known Allergies Allergy (Verified 05/19/24 14:52) Medication List - Last Reconciled 05/19/24 by Gabby Kelly MD allopurinol 300 mg PO DAILY amlodipine 5 mg PO DAILY aripiprazole 5 mg PO DAILY aspirin (Erick Low Dose Aspirin) 81 mg PO DAILY 90 days atorvastatin 20 mg PO DAILY 90 days blood sugar diagnostic ([employer] Ultra Test strips) Test blood sugar once a day bupropion HCl XL 300 mg PO QAM codeine-guaifenesin 10-100 mg/5 mL 10 mL PO Q4-6H PRN duloxetine 60 mg PO BEDTIME flash glucose scanning reader (Zigabid Sonido 2 [place]) As directed flash glucose sensor ([employer] Sonido 2 Sensor kit) As directed Lantus Solostar U-100 Insulin (insulin glargine) 50 units (0.5 mL) subcut QPM 90 days NS losartan 100 mg PO DAILY pen needle, diabetic ([employer] Pen Needle) As directed penicillin V potassium 250 mg PO BID 90 days pioglitazone 15 mg PO DAILY pioglitazone 15 mg PO DAILY potassium citrate ER 20 mEq (2 x 10 mEq (1,080 mg)) PO BID 90 days spironolacton-hydrochlorothiaz 25-25 mg 1 tab PO DAILY trazodone 100 mg PO BEDTIME Tobacco use date assessed: 05/19/24 Dental Screening Dental Screen Date: 05/19/24 Did you have a dental visit in the last 12 months?: Yes Did you have a dental problem in the last 6 months where you did not have access to dental care?: No Was dental information given to patient?: Patient has dentist HPI diabetes f/u HPI Details Chief Complaint The patient presents for management of chronic conditions and medication review. Assessment and Plan 58-year-old male with a history of Type 2 Diabetes Mellitus, 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, Chronic Kidney Disease, and Depression presenting for management of these chronic conditions and medication review. The patient's most recent labs show stable blood pressure parameters at 120/68 mmHg and an HbA1c of 6.5%, indicating good glycemic control. However, there is a noted decline in renal function with an increase in creatinine from 1.60 in December to 1.71, and a decrease in GFR from 45 to 41, suggesting progression of Chronic Kidney Disease. Insulin dosage adjustments were discussed due to concerns about hypoglycemia. The patient reports no recent flare-ups of gout and mood is stable with current psychiatric medications. A referral to a cough specialist is planned following an inconclusive etiology determination for a persistent chronic cough through retail marketing specialist [facility] Dr. Gómez, and further evaluation for memory loss concerns is pending with a neurology follow-up. Patient has seen neurologist recently for the management of sleep apnea, and repeat sleep study was recommended as his equipment seems not to be working properly. 1. Depression And Bipolar Disorder Continue current psychiatric medications (Abilify, Wellbutrin, Duloxetine). Regular follow-up with psychiatric med nurse is recommended for medication management. 2. Type 2 Diabetes Mellitus Continue monitoring blood glucose levels, and adjust Lantus insulin dosage from 100 to 90 units based on current glycemic control (A1c 6.5%). Patient advised to keep a candy for hypoglycemic events. Maintain current medication regimen with pioglitazone and other antidiabetic agents. 3. Sleep Apnea Re-evaluation of CPAP therapy due to suspected device inefficiency. Upcoming sleep study to be completed to assess current condition. 4. 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 Blood pressure is well-controlled at 120/68 mmHg. Continue current antihypertensive regimen and monitor regularly. Management is through Nephrolo gy 5. Chronic Kidney Disease Monitor renal function and creatinine levels. Follow up with nephrology in June as scheduled for further evaluation and management. 6. Memory Loss Follow up with neurology in 3 months to reassess memory concerns. Patient previously evaluated by neurologist with further testing planned if necessary. 7. Chronic Cough Plan to consult cough specialist at [facility] for further assessment. Chronic cough remains without a determined etiology. Past evaluations including chest CT showed no notable abnormalities. 8. Gout Continue allopurinol therapy. No recent acute episodes noted; maintain monitoring. Problem List - Obesity - 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 - Chronic Kidney Disease - Type 2 Diabetes Mellitus - Depression - Bipolar Disorder - Gout - Sleep Apnea - Chronic Cough - Memory Loss Patient Instructions - Reduce Lantus insulin dosage to 90 uni ts. Monitor blood glucose regularly and carry a fast-acting carbohydrate source to manage potential hypoglycemia. - Maintain scheduled appointments with n ephrology, neurology, and pulmonary specialists. - Comply with current medication regimen for diabetes, hypertension, and psychiatric conditions. - Attend all follow-up visits for contin ued assessment and management of chronic conditions. - Resume home monitoring of blood pressu re and blood glucose, and provide logs d uring next appointment. [facility] Medical History Peripheral neuropathy Obstructive sleep apnea Restless legs syndrome (RLS) Obstructive sleep apnea Chronic pain syndrome Ureteral calculus Fatty liver Gout Kidney stones Depression, major, recurrent Lipid disorder 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, essential tank terminal gauger (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 Diabetes 1.5, managed as type 1 Complex regional pain syndrome of both lower extremities Diabetic peripheral neuropathy Spondylosis of lumbar region without myelopathy or radiculopathy Surgical History S/P placement of nerve stimulator Hx of lithotripsy Hx of colonoscopy Family History Other Mental health disorder Social History Housing: Condominium Alcohol intake: never Patient Tobacco Use Status: Never used Tobacco e-Cigarette/Vaping Use: Never Used Second Hand Smoke Exposure: No service: No Current occupational status: disabled Cognitive needs: No Hearing needs: No Vision needs: Yes Questionnaire PHQ-9 Over the last 2 weeks, how often have you been bothered by any of the following problems? 1. Little interest or pleasure in doing things: several days 2. Feeling down, depressed, or hopeless: several days 3. Trouble falling or staying asleep, or sleeping too much: more than half the days 4. Feeling tired or having little energy: more than half the days 5. Poor appetite or overeating: not at all 6. Feeling bad about yourself - or that you are a failure or have let yourself or your family down: not at all 7. Trouble concentrating on things, such as reading the newspaper or watching television: several days 8. Moving or speaking so slowly that other people could have noticed. Or the opposite - being so fidgety or restless that you have been moving around a lot more than usual: not at all 9. Thoughts that you would be better off or of hurting yourself in some way: not at all Total score: 7 Depression Screening Interpretation: Negative Depression Screening Done: Yes 58910 - PHQ-9 Billing: Yes Source: Developed by Drs. Ken Padilla, Vandana Magallon, Janusz Barlow and colleagues, with an educational nick from [employer]. Thrive Questionnaire Date Thrive assessed: 05/19/24 I am a: Patient What is your living situation today?: I have a steady place to live Within the past 12 months, did the food you bought not last and you didn't have the money to get more?: Never true Within the past 12 months, did you worry whether your food would run out before you got money to buy more?: Never true Do you have trouble paying for medicines?: No Do you have trouble getting transportation to medical appointments?: No Do you have trouble paying your heating and electricity bill?: No Do you have trouble taking care of your child, family member or friend?: No Do you have trouble with day-to-day activities such as bathing, preparing meals, shopping, managing finances, etc.?: Yes Are you currently unemployed and looking for a job?: No Are you interested in more education?: No Please select the resources that you would like help with: None Currently or been in a relationship where the following occur: No concerns reported THRIVE Score: 0 AUDIT C Alcohol Use Questionnaire (AUDIT-C) 1. How often do you have a drink containing alcohol?: Never 3. How often do you have six or more drinks on one occasion?: Never Total Score: 0 Score Reviewed/Action Taken: Yes CRISTOBAL-7 AMB Questionnaire CRISTOBAL-7 Date CRISTOBAL - 7 assessed: 05/19/24 Feeling nervous, anxious, or on edge: 1 = Several days Not being able to stop or control worryin = Several days Worrying too much about different things: 1 = Several days Trouble relaxin = Several days Being so restless that it is hard to sit still: 1 = Several days Becoming easily annoyed or irritable: 1 = Several days Feeling afraid as if something awful might happen: 0 = Not at all Total CRISTOBAL-7 score (0-4 normal; 5-9 mild; 10-14 moderate; 15-21 severe): 6 Source: Developed by Drs. Ken Padilla, Janusz Najera Kroenke and colleagues, with an educational nick from [employer]. CRISTOBAL-7 Assessment Billing CRISTOBAL-7 Assessment Tool: CRISTOBAL-7 Assessment 21694 Review of Systems Const Denies chills and Denies fever(s) ENT Denies epistaxis and Denies nasal discharge Card Denies chest pain Resp Denies chest congestion and Denies hemoptysis GI Denies diarrhea and Denies nausea Skin/Breast Denies rash Neuro Reports no additional complaints Psych Reports no additional complaints Endo Reports no additional complaints Physical exam (Primary Care) Vital Signs: Last Vital Signs Pulse 86 05/19/24 14:51 BP 120/68 05/19/24 14:51 Pulse Ox 98 05/19/24 14:51 Oxygen Delivery Method Room Air 05/19/24 14:51 BMI result Body Mass Index 15.4 Tobacco/Smoking Status: Tobacco use Status Tobacco use date assessed 05/19/24 05/19/24 14:53 Patient Tobacco Use Status Never used Tobacco 05/19/24 14:53 e-Cigarette/Vaping Use Never Used 05/19/24 14:53 PHQ-9: PHQ-9 Score PHQ-9: Total score 7 05/19/24 15:26 Depression Screening Interpretation: Negative Thrive Assessment: Date of Thrive Assessment Date Thrive assessed 05/19/24 05/19/24 14:53 Currently or been in a relationship where the following occur: No concerns reported Const General: cooperative, comfortable and no acute distress Orientation/consciousness: patient oriented x3 HENMT Head: Yes normocephalic Eyes General: appearance normal, both eyes and all related structures Neck Neck: Yes supple Resp Effort & Inspection: normal respiratory effort, no cough and no stridor Cardio Rhythm: regular rhythm Heart sounds: S1 normal heart sound present and S2 normal heart sound present Skin General skin exam: turgor normal Neuro General: patient oriented x3, tone normal and moves all extremities Extrem Right lower extremity: no edema Left lower extremity: no edema Coding Level of Care Code Est Pt Level 5 (73256) Diagnoses Diabetes 1.5, managed as type 1 E13.9 Diabetic peripheral neuropathy E11.42 tank terminal gauger (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 Z79.4 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, essential I10 Lipid disorder E78.9 Moderate episode of recurrent major depressive disorder F33.1 Active/Remission status: currently active Major depression episode severity: moderate Obstructive sleep apnea G47.33 Chronic gout without tophus, unspecified cause, unspecified site [id number] Chronicity: chronic Gout etiology: unspecified cause Gout site: unspecified site Presence of tophus: without tophus Elevated serum creatinine R79.89 Memory changes R41.3 Diabetic nephropathy associated with diabetes mellitus due to underlying conditi on E08.21 Diabetes mellitus type: due to underlying condition Morbid obesity due to excess calories E66.01 Chronic cough R05.3 Additional Codes CRISTOBAL-7 Assessment Billing - CRISTOBAL-7 Assessment Tool: CRISTOBAL-7 Assessment 96140 ([id number]) PHQ-9 - 90325 - PHQ-9 Billing: Yes ([id number]) Assessment & Plan Assessment & Plan (1) Diabetes 1.5, managed as type 1: Code(s): E13.9 - Other specified diabetes mellitus without complications Category: Medical (2) Diabetic peripheral neuropathy: Code(s): E11.42 - Type 2 diabetes mellitus with diabetic polyneuropathy Category: Medical (3) jail (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: Code(s): Z79.4 - tank terminal gauger (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 Category: Medical (4) 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, essential: Code(s): I10 - Essential (primary) hypertension Category: Medical (5) Lipid disorder: Code(s): E78.9 - Disorder of lipoprotein metabolism, unspecified Category: Medical (6) Depression, major, recurrent: Code(s): F33.9 - Major depressive disorder, recurrent, unspecified Category: Medical Qualifiers: Active/Remission status: currently active Major depression episode severity: moderate Qualified Code(s): F33.1 - Major depressive disorder, recurrent, moderate (7) Obstructive sleep apnea: Comment: Severe degree of KRISTIN. AHI 47/hr with oxygen jeremiah was 75%. Code(s): G47.33 - Obstructive sleep apnea (adult) (pediatric) Category: Medical (8) Gout: Code(s): M10.9 - Gout, unspecified Category: Medical Qualifiers: Chronicity: chronic Gout etiology: unspecified cause Gout site: unspecified site Presence of tophus: without tophus Qualified Code(s): [id number].[id number] - Chronic gout, unspecified, without tophus (tophi) (9) Elevated serum creatinine: Code(s): R79.89 - Other specified abnormal findings of blood chemistry Category: Medical (10) Memory changes: Code(s): R41.3 - Other amnesia Category: Medical (11) Diabetic nephropathy: Code(s): E11.21 - Type 2 diabetes mellitus with diabetic nephropathy Category: Medical Qualifiers: Diabetes mellitus type: due to underlying condition Qualified Code(s): E08.21 - Diabetes mellitus due to underlying condition with diabetic nephropathy (12) Morbid obesity due to excess calories: Code(s): E66.01 - Morbid (severe) obesity due to excess calories Category: Medical (13) Chronic cough: Code(s): R05.3 - Chronic cough Category: Medical Plan Chief Complaint The patient presents for management of chronic conditions and medication review. Assessment and Plan 58-year-old male with a history of Type 2 Diabetes Mellitus, 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, Chronic Kidney Disease, and Depression presenting for management of these chronic conditions and medication review. The patient's most recent labs show stable blood pressure parameters at 120/68 mmHg and an HbA1c of 6.5%, indicating good glycemic control. However, there is a noted decline in renal function with an increase in creatinine from 1.60 in December to 1.71, and a decrease in GFR from 45 to 41, suggesting progression of Chronic Kidney Disease. Insulin dosage adjustments were discussed due to concerns about hypoglycemia. The patient reports no recent flare-ups of gout and mood is stable with current psychiatric medications. A referral to a cough specialist is planned following an inconclusive etiology determination for a persistent chronic cough through [facility] Dr. Gómez, and further evaluation for memory loss concerns is pending with a neurology follow-up. Patient has seen neurologist recently for the management of sleep apnea, and repeat sleep study was recommended as his equipment seems not to be working properly. 1. Depression And Bipolar Disorder Continue current psychiatric medications (Abilify, Wellbutrin, Duloxetine). Regular follow-up with psychiatric med nurse is recommended for medication management. 2. Type 2 Diabetes Mellitus Continue monitoring blood glucose levels, and adjust Lantus insulin dosage from 100 to 90 units based on current glycemic control (A1c 6.5%). Patient advised to keep a candy for hypoglycemic events. Maintain current medication regimen with pioglitazone and other antidiabetic agents. 3. Sleep Apnea Re-evaluation of CPAP therapy due to suspected device inefficiency. Upcoming sleep study to be completed to assess current condition. 4. 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 Blood pressure is well-controlled at 120/68 mmHg. Continue current antihypertensive regimen and monitor regularly. Management is through Nephrology 5. Chronic Kidney Disease Monitor renal function and creatinine levels. Follow up with nephrology in June as scheduled for further evaluation and management. 6. Memory Loss Follow up with neurology in 3 months to reassess memory concerns. Patient previously evaluated by neurologist with further testing planned if necessary. 7. Chronic Cough Plan to consult cough specialist at [facility] for further assessment. Chronic cough remains without a determined etiology. Past evaluations including chest CT showed no notable abnormalities. 8. Gout Continue allopurinol therapy. No recent acute episodes noted; maintain monitoring. Problem List - Obesity - 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 - Chronic Kidney Disease - Type 2 Diabetes Mellitus - Depression - Bipolar Disorder - Gout - Sleep Apnea - Chronic Cough - Memory Loss Patient Instructions - Reduce Lantus insulin dosage to 90 units. Monitor blood glucose regularly and carry a fast-acting carbohydrate source to manage potential hypoglycemia. - Maintain scheduled appointments with nephrology, neurology, and pulmonary specialists. - Comply with current medication regimen for diabetes, hypertension, and psychiatric conditions. - Attend all follow-up visits for continued assessment and management of chronic conditions. - Resume home monitoring of blood pressure and blood glucose, and provide logs during next appointment. 45 minutes spent in care of this patient Medications: Changed From Lantus Solostar U-100 Insulin (insulin glargine) 50 units (0.5 mL) subcut QPM 90 days 45 mL 3RF NS E13.9 - Other specified diabetes mellitus without complications To Lantus Solostar U-100 Insulin (insulin glargine) 90 units (0.9 mL) subcut QPM 81 mL 3RF 90 days NS E13.9 - Other specified diabetes mellitus without complications Refilled flash glucose sensor ([employer] Sonido 2 Sensor kit) As directed 6 ea 3RF E13.9 - Other specified diabetes mellitus without complications
== END 2024-05-19 15:57 | disposition home or self-care (01) ==
PROVIDERS: PCP Internal Medicine; Visit Provider Internal Medicine
DX: E11.42 Type 2 diabetes mellitus with diabetic polyneuropathy (principal); Z79.4 Long term (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; E66.01 Morbid (severe) obesity due to excess calories; F33.1 Major depressive disorder, recurrent, moderate; Z68.1 Body mass index [BMI] 19.9 or less, adult; I10 Essential (primary) hypertension; E78.9 Disorder of lipoprotein metabolism, unspecified; G47.33 Obstructive sleep apnea (adult) (pediatric); M1A.9XX0 Chronic gout, unspecified, without tophus (tophi); R41.3 Other amnesia; R05.3 Chronic cough

== ENCOUNTER → 2024-05-19 14:49 | Outpatient (BNVA) | payer OTHER, SELFPAY | PROVIDERS: PCP Internal Medicine; Visit Provider Internal Medicine | DX: E11.42 Type 2 diabetes mellitus with diabetic polyneuropathy (principal); E11.22 Type 2 diabetes mellitus with diabetic chronic kidney disease; I12.9 Hypertensive chronic kidney disease with stage 1 through stage 4 chronic kidney disease, or unspecified chronic kidney disease; N18.9 Chronic kidney disease, unspecified; E78.9 Disorder of lipoprotein metabolism, unspecified; F33.1 Major depressive disorder, recurrent, moderate; G47.33 Obstructive sleep apnea (adult) (pediatric); M1A.9XX0 Chronic gout, unspecified, without tophus (tophi); R79.89 Other specified abnormal findings of blood chemistry; R41.3 Other amnesia; E66.01 Morbid (severe) obesity due to excess calories; R05.3 Chronic cough; Z79.4 Long term (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; Z79.899 Other long term (current) drug therapy | CPT/HCPCS: 96127 ==

== ENCOUNTER → 2024-06-19 20:30 | Outpatient (REF) | payer OTHER, SELFPAY ==
--- OUTSIDE RECORDS SUMMARY | 2024-06-19 21:05 | XMS_ITS | Encounter Summary ---
Author Name [facility] [place] Organization [facility] [place] Address [address] [place] [address] Care Team Providers Care Assembly Department Supervisor Name Role Phone MARILUZ STEWART Primary Care Provider Unavail able Selected Encounter This section includes the information on record at [place] for the Encounter. Date/Time Encounter Type Encounter Description Reason Provider Source November 18, 2023 01:24 PM Outpatient Encounter HT NON-VIDEO MONITORING ICD-10-CM E66.09 Other obesity due to excess calories SHERIE LUDWIG [facility] Encounter Template Text not used by [place] Assessments - Encounter Diagnoses This section includes the primary and secondary diagnoses documented for the Encounter. Date/Time Primary/Secondary Diagnosis Diagnosis Name Provider Source November 18, 2023 01:27 PM PRIMARY Obesity, unspecified MANEKAS,SHERIE L [place] [facility] [place] [facility] November 18, 2023 01:27 PM PRIMARY Other obesity due to excess calories [facility] November 18, 2023 01:27 PM SECONDARY Body mass index [BMI] 37.0-37.9, adult BIGG SOUZA [facility] Lab Results: +/- 30 days of the encounter This section includes the Chemistry and Hematology Lab Results on record with [place] for the patient. Radiology Reports and Pathology Reports are provided separately, in subsequent sections. Lab Results This section contains the Chemistry/Hematology Results that were resulted 30 days before or 30 daysafter the date of the Encounter. Date/Time Source Result Type Result - Unit Interpretation Reference Range Comment Oct 21, 2023 02:50 PM [facility] HEPATITIS A ANTIBODY (IGG) Specimen Type: SERUM Comment: Hep A IgG: A 'Non-reactive ' result indicates no anti-HAV IgG was detected. Ordering Provider: ARY STEWART Report Released Date/Time: Oct 21, 2023 02:15 PM Reporting Lab: [address] [address] Performing Lab: [facility] [address] [address] HEPATITIS A ANTIBODY (IGG) Non Reactive Non Reactive Oct 21, 2023 02:50 PM [facility] HEPATITIS B SURFACE ANTIBODY (HBsAb)-WH Specimen Type: SERUM No comment entered. Ordering Provider: ARY STEWART Report Released Date/Time: Oct 21, 2023 02:15 PM Reporting Lab: [address] [address] Performing Lab: [facility] [address] [address] HBsAb Non Reactive Non Reactive Oct 21, 2023 02:50 PM [facility] URINALYSIS Specimen Type: URINE Comment: If Glucose = >500 and Ketones are positive, please alert the Physician. Ordering Provider: ARY STEWART Report Released Date/Time: Oct 21, 2023 02:15 PM Reporting Lab: [address] [address] Performing Lab: [address] [address] UA COLOR Yellow Yellow UA APPEARANCE Clear Clear UA GLUCOSE NEGATIVE mg/dL Negative UA KETONES NEGATIVE mg/dL Negative UA BLOOD NEGATIVE mg/dL Negative UA PROTEIN 20 mg/dL Negative UA NITRITE NEGATIVE mg/dL Negative UA BILIRUBIN NEGATIVE mg/dL Negative UA SPECIFIC GRAVITY 1.024 H 1.016-1.022 UA pH 6.0 5.0-9.0 UA UROBILINOGEN <2.0 mg/dL <2.0 UA LEUKOCYTE NEGATIVE Negative Oct 21, 2023 02:50 PM [facility] MICROALBUMIN CREATININE RATIO PANEL Specimen Type: URINE No comment entered. Ordering Provider: ARY STEWART Report Released Date/Time: Oct 21, 2023 02:15 PM Reporting Lab: [facility] [address] [facility] [address] Performing Lab: [facility] [address] [facility] [address] MICROALBUMIN/ CREATININE RATIO 6.2 mg/g 0-29.9 MICROALBUMIN, QUANTITATIVE 1.5 mg/dL RR UNAVAIL CREATININE URINE 240.98 mg/dL Oct 21, 2023 02:50 PM [facility] URIC ACID Specimen Type: SERUM No comment entered. Ordering Provider: ARY STEWART Report Released Date/Time: Oct 21, 2023 02:15 PM Reporting Lab: [facility] [address] [facility] [address] Performing Lab: [facility] [address] [facility] [address] URIC ACID 5.4 mg/dL 3.5-7.2 Oct 21, 2023 02:50 PM [facility] CBC AND DIFF (AUTO) Specimen Type: BLOOD No comment entered. Ordering Provider: ARY STEWART Report Released Date/Time: Oct 21, 2023 02:23 PM Reporting Lab: [facility] [address] [facility] [address] Performing Lab: [facility] [address] [facility] [address] WBC 5.99 10*3/uL 4.50-11.00 RBC 4.47 10*6/uL 4.23-5.66 HGB 14.0 g/dL 12.8-17 HCT 40.0 39.2-50.4 MCV 89.5 fL 82-99 MCHC 35.0 g/dL 30.8-35.1 PLT 211 10*3/uL 140-360 RDW-CV 12.3 12.0-16.0 [place], Abs 0.38 10*3/uL 0.30-1.10 MCH 31.3 pg 26.2-32.6 Neut % 72.5 43.7-75.8 Lymph % 17.5 14.0-42.3 [place] % 6.3 5.1-13.7 Eos % 2.7 0.4-6.8 Baso % 0.8 0.1-2.0 Neut, Abs 4.34 10*3/uL 2.20-7.60 Lymph, Abs 1.05 10*3/uL 1.00-3.20 Eos, Abs 0.16 10*3/uL 0.03-0.44 Baso, Abs 0.05 10*3/uL 0.01-0.13 Immature Gran % 0.2 0.0-0.7 Immature Gran, Abs 0.01 10*3/uL 0.00-0.06 Oct 21, 2023 02:50 PM [facility] TSH Specimen Type: SERUM No comment entered. Ordering Provider: ARY STEWART Report Released Date/Time: Oct 21, 2023 02:15 PM Reporting Lab: [address] [phone] Performing Lab: [address] [address] TSH 1.46 u[IU]/mL 0.35-5.00 Oct 21, 2023 02:50 PM [facility] HIV 1&2 Ag/Ab SCREEN Specimen Type: SERUM No comment entered. Ordering Provider: ARY STEWART Report Released Date/Time: Oct 21, 2023 02:15 PM Reporting Lab: [address] [address] Performing Lab: [address] [address] HIV 1&2 Ag/Ab SCREEN NON-REACTIVE Nonreactive Oct 21, 2023 02:50 PM [facility] HEPATITIS C ANTIBODY (HCV)-ARC Specimen Type: SERUM Comment: Hep C Ab: No HCV antibody detected. If recent infection is suspected or other evidence suggests HCV infection, consider HCV nucleic acid testing Ordering Provider: ARY STEWART Report Released Date/Time: Oct 21, 2023 02:15 PM Reporting Lab: [address] [address] Performing Lab: [address] [address] HEPATITIS C ANTIBODY NON-REACTIVE NON-REACTIVE Oct 21, 2023 02:50 PM [facility] BASIC METABOLIC PANEL (fasting) Specimen Type: SERUM No comment entered. Ordering Provider: ARY STEWART Report Released Date/Time: Oct 21, 2023 02:15 PM Reporting Lab: [address] [address] Performing Lab: [address] [address] UREA NITROGEN 28 mg/dL H 7-25 GLUCOSE 147 mg/dL H 65-100 SODIUM 139 mmol/L 135-145 POTASSIUM 4.4 mmol/L 3.5-5.0 CHLORIDE 103 mmol/L 100-110 CO2 27 meq/L 20-30 CREATININE, Serum 1.74 mg/dL H 0.50-1.40 eGFR(CKD-EPI 2020) 45 mL/min L >60 Oct 21, 2023 02:50 PM [facility] LIVER FUNCTION Specimen Type: SERUM No comment entered. Ordering Provider: ARY STEWART Report Released Date/Time: Oct 21, 2023 02:15 PM Reporting Lab: [address] [address] Performing Lab: [address] [address] PROTEIN,TOTAL 6.7 g/dL 6.0-8.3 ALBUMIN 4.1 g/dL 3.5-5.0 ALKALINE PHOSPHATASE 84 U/L 40-150 AST 19 U/L 5-34 ALT 28 U/L BILIRUBIN, TOTAL 0.6 mg/dL 0.2-1.2 Oct 21, 2023 02:50 PM [facility] LIPID PANEL FASTING Specimen Type: SERUM No comment entered. Ordering Provider: ARY STEWART Report Released Date/Time: Oct 21, 2023 02:15 PM Reporting Lab: [facility] [address] [facility] [address] Performing Lab: [facility] [address] [address] CHOLESTEROL 84 mg/dL TRIGLYCERIDE 87 mg/dL 0-150 LDL calculated 30 mg/dL 0-129 CHOL/HDL 2.3 HDL CHOLESTEROL 37 mg/dL L 40-60 Oct 21, 2023 02:50 PM [facility] HEMOGLOBIN A1C PANEL Specimen Type: BLOOD Comment: Values obtained from A1C measurements can vary. For atypical A1C assays, a reported value of 7.0 could actually be between 6.72 and 7.28 if measured by a reference method. A reported value of 9.0 could actually be between 8.73 and 9.27. Ref: http://www.ng sp.org/CAPdat a.asp Ordering Provider: ARY STEWART Report Released Date/Time: Oct 21, 2023 02:15 PM Reporting Lab: [facility] [address] [facility] [address] Performing Lab: [address] [address] HEMOGLOBIN A1C 6.1 H 4.0-5.6 Social History: Smoking Status (Most current) and Tobacco Use (All prior to encounter date) This section includes the most current, and the historical, smoking and tobacco- related health factors from the [place] facility where the Encounter took place. Current Smoking Status This section includes the most current smoking, or tobacco-related health factor, from the [place] facility where the Encounter took place. Date/Time Current Smoking Status Comment Marcus scales Oct 15, 2023 04:18 PM VA-TOBACCO NEVER USED [facility] Encounter Notes: All associated encounter notes This section contains the clinical notes associated to the Encounter. Date/Time Encounter Note(s) Provider Source November 18, 2023 01:26 PM NUTRITION NOTE: LOCAL TITLE: LOW INTENSITY/LOW ACUITY MONTHLY MONITOR NOTE STANDARD TITLE: NUTRITION NOTE DATE OF NOTE: NOVEMBER 18, 2023@13:26 ENTRY DATE: NOVEMBER 18, 2023@13:26:55 AUTHOR: SHERIE LUDWIG EXP COSIGNER: URGENCY: STATUS: COMPLETED The [facility] is enrolled in the Home Telehealth (HT) program and continues to be monitored via HT technology. The data sent by the [facility] is reviewed and analyzed by the HT staff, who provide ongoing case management and health education while communicating and collaborating with the health care team as appropriate. This note covers a total of 30 minutes for the month monitored. Month monitored:OCTOBER 2023 Dx: E66.09 obesity /es/ SHERIE LUDWIG RD,LDN STAFF DIETITIAN Signed: 11/18/2023 13:33 SHERIE LUDWIG [place] [facility]
--- OUTSIDE RECORDS SUMMARY | 2024-06-19 21:05 | XMS_ITS | Continuity of Care Document ---
Author Organization [facility] Address [address] [place] [id number] Care Team Providers Care Chief General [facility] Name Role Phone Not on Staff, PCP Primary Care Physician Unavail able [place] [facility] [place] 03/02[place]24 - 06/01/24 [facility] [address] [place] [id number]- Attending Physician: Axel Stewart MD Admitting Physician: Axel Stewart MD Encounter Type: Pre-OutPatient One Time Allergies, Adverse Reactions, Alerts No Known Allergies Medications allopurinol 300 mg oral tablet TAKE 1 TABLET BY MOUTH EVERY DAY Start Date: 03/02/24 Status: Ordered Repeat number: 1 amLODIPine 5 mg oral tablet TAKE 1 TABLET BY MOUTH EVERY DAY Start Date: 03/02/24 Status: Ordered Repeat number: 1 ARIPiprazole 5 mg oral tablet TAKE 1 TABLET BY MOUTH EVERY DAY Start Date: 03/02/24 Status: Ordered Repeat number: 1 aspirin 81 mg oral capsule 1 capsule = 81 mg, By Mouth, Every 24 hours, 0 Refills, Maintenance, 03/02/24 1:11:00 PM EDT, Partialfill upon patient request if the prescription is for a schedule II opioid drug. Start Date: 03/02/24 Status: Ordered Repeat number: 1 atorvastatin 20 mg oral tablet TAKE 1 TABLET BY MOUTH EVERY DAY FOR 90 DAYS Start Date: 03/02/24 Status: Ordered Repeat number: 1 buPROPion 300 mg/24 hours (XL) oral tablet, extended release TAKE 1 TABLET BY MOUTH EVERY DAY IN THE MORNING Start Date: 03/02/24 Status: Ordered Repeat number: 1 duloxetine 60 mg oral enteric coated capsule TAKE 1 CAPSULE BY MOUTH EVERY DAY IN THE MORNING Start Date: 03/02/24 Status: Ordered Repeat number: 1 FREESTYLE CLOVIS 2 SENSOR FREESTYLE CLOVIS 2 SENSOR, 0 Refills, Maintenance, 03/02/24 1:07:00 PM EDT Start Date: 03/02/24 Status: Ordered Repeat number: 1 hydrochlorothiazide-spironolactone 25 mg-25 mg oral tablet TAKE 1 TABLET BY MOUTH EVERY DAY Start Date: 03/02/24 Status: Ordered Repeat number: 1 Lantus Solostar Pen 100 units/mL subcutaneous solution INJECT 50 UNITS SUBCUTANEOUSLY EVERY EVENING Start Date: 03/02/24 Status: Ordered Repeat number: 1 losartan 100 mg oral tablet TAKE 1 TABLET BY MOUTH EVERY DAY Start Date: 03/02/24 Status: Ordered Repeat number: 1 penicillin V potassium 250 mg oral tablet TAKE 1 TABLET BY MOUTH TWICE A DAY Start Date: 03/02/24 Status: Ordered Repeat number: 1 potassium citrate 10 mEq oral tablet TAKE 2 TABLETS BY MOUTH TWICE A DAY Start Date: 03/02/24 Status: Ordered Repeat number: 1 traZODone 100 mg oral tablet TAKE 1 TABLET BY MOUTH EVERYDAY AT BEDTIME Start Date: 03/02/24 Status: Ordered Repeat number: 1 Patient Care team information Care Team Personnel Name: Not on Staff, PCP Position: [facility] Physician (General Medicine) Member Role: PCP Care Team Related Persons Name: UNKNOWN, UNKNOWN Insurance Providers Guarantor name: NA Health Plan Information #: 1 Payer: SELF PAY INSURANCE Member Number: NA Policy Number: NA Group Number: NA Health Plan Information #: 2 Payer: [facility] Member Number: NA Policy Number: NA Group Number: NA
--- OUTSIDE RECORDS SUMMARY | 2024-06-19 21:05 | XMS_ITS ---
Author Name [facility] [place] [facility] [place] Organization [facility] [place] Address [address] [place] [address] Care Team Providers Care Melt House Supervisor Name Role Phone MARILUZ STEWART Primary Care Provider Unavail able Selected Encounter This section includes the information on record at [place] for the Encounter. Date/Time Encounter Type Encounter Description Reason Pro vider Source Jan 11, 2024 01:57 PM Outpatient Encounter PRIMARY CARE/MEDICINE IHE Encounter Template Text not used by [place] Social History: Smoking Status (Most current) and Tobacco Use (All prior to encounter date) This section includes the most current, and the historical, smoking and tobacco- related health factors from the [place] facility where the Encounter took place. Current Smoking Status This section includes the most current smoking, or tobacco-related health factor, from the [place] facility where the Encounter took place. Date/Time Current Smoking Status Comment Marcus scales Oct 15, 2023 04:18 PM VA-TOBACCO NEVER USED [facility] [place] [facility] Encounter Notes: All associated encounter notes This section contains the clinical notes associated to the Encounter. Date/Time Encounter Note(s) Provider Source Jan 11, 2024 01:57 PM ADMINISTRATIVE NOTE: LOCAL TITLE: ADMINISTRATIVE NOTE STANDARD TITLE: ADMINISTRATIVE NOTE DATE OF NOTE: JAN 11, 2024@13:57 ENTRY DATE: JAN 11, 2024@13:57:17 AUTHOR: OSMAN MANRIQUE COSIGNER: URGENCY: STATUS: COMPLETED [facility] called to inform them that their appointment was CXLD & was adtemping to reschedule with the . Call was made, no answer, left message and CXLD letter was mail to the . /autumn/ OSMAN GUTIERREZ Signed: 01/11/2024 13:57 OSMAN MANRIQUE [place] [facility]
--- OUTSIDE RECORDS SUMMARY | 2024-06-19 21:05 | XMS_ITS | Encounter Summary ---
Author Name [facility] [place] [facility] [place] Organization [facility] [place] Address [address] [place] [address] Care Team Providers Care Painter Set Name Role Phone MARILUZ STEWART Primary Care Provider Unavail able Selected Encounter This section includes the information on record at [place] for the Encounter. Date/Time Encounter Type Encounter Description Reason Provider Source Jan 14, 2024 11:10 AM Outpatient Encounter HT NON-VIDEO MONITORING ICD-10-CM E66.09 Other obesity due to excess calories SHERIE LUDWIG [facility] Encounter Template Text not used by [place] Assessments - Encounter Diagnoses This section includes the primary and secondary diagnoses documented for the Encounter. Date/Time Primary/Secondary Diagnosis Diagnosis Name Provider Source Jan 14, 2024 11:25 AM PRIMARY Obesity, unspecified MANEKAS,SHERIE L [place] [facility] [place] [facility] Jan 14, 2024 11:25 AM PRIMARY Other obesity due to excess calories [facility] Jan 14, 2024 11:25 AM SECONDARY Body mass index [BMI] 37.0-37.9, adult BIGG SOUZA [facility] Social History: Smoking Status (Most current) and Tobacco Use (All prior to encounter date) This section includes the most current, and the historical, smoking and tobacco- related health factors from the [place] facility where the Encounter took place. Current Smoking Status This section includes the most current smoking, or tobacco-related health factor, from the [place] facility where the Encounter took place. Date/Time Current Smoking Status Comment Facil ity Oct 15, 2023 04:18 PM VA-TOBACCO NEVER USED [facility] Encounter Notes: All associated encounter notes This section contains the clinical notes associated to the Encounter. Date/Time Encounter Note(s) Provider Source Jan 14, 2024 11:24 AM NUTRITION NOTE: LOCAL TITLE: LOW INTENSITY/LOW ACUITY MONTHLY MONITOR NOTE STANDARD TITLE: NUTRITION NOTE DATE OF NOTE: JAN 14, 2024@11:24 ENTRY DATE: JAN 14, 2024@11:24:28 AUTHOR: SHERIE LUDWIG EXP COSIGNER: URGENCY: STATUS: COMPLETED The [place] is enrolled in the Home Telehealth (HT) program and continues to be monitored via HT technology. The data sent by the is reviewed and analyzed by the HT staff, who provide ongoing case management and [place] health education while communicating and collaborating with the health care team as appropriate. This note covers a total of 30 minutes for the month monitored. Month monitored:DECEMBER 2023 Dx: E66.09 obesity /es/ SHERIE LUDWIG RD,LDN STAFF DIETITIAN Signed: 01/14/2024 11:30 SHERIE LUDWIG [facility]
--- OUTSIDE RECORDS SUMMARY | 2024-06-19 21:05 | XMS_ITS ---
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 Date/Time Encounter Type Encounter Description Reason Provider Source Oct 21, 2023 01:00 PM OFFICE O/P NEW MOD 45 MIN PRIMARY CARE/MEDICINE ICD-10-CM M47.9 Spondylosis, unspecified VANWAGNER,WILL MEAGHAN F IHE Encounter Template Text not used by [place] Assessments - Encounter Diagnoses This section includes the primary and secondary diagnoses documented for the Encounter. Date/Time Primary/Secondary Diagnosis Diagnosis Name Provider Source Oct 21, 2023 02:22 PM PRIMARY Spondylosis, unspecified VANWAGNER,WILL MEAGHAN F [place] [facility] [place] [facility] Oct 21, 2023 02:22 PM SECONDARY Contact with and exposure to other hazardous substances GUSTABOWAGNER,WILL MEAGHAN [facility] [place] [facility] Lab Results: +/- 30 days of the encounter This section includes the Chemistry and Hematology Lab Results on record with [place] for the patient. Radiology Reports and Pathology Reports are provided separately, in subsequent sections. Lab Results This section contains the Chemistry/Hematology Results that were resulted 30 days before or 30 daysafter the date of the Encounter. Date/Time Source Result Type Result - Unit Interpretation Reference Range Comment Oct 21, 2023 02:50 PM [facility] HEPATITIS A ANTIBODY (IGG) Specimen Type: SERUM Comment: Hep A IgG: A 'Non-reactive ' result indicates no anti-HAV IgG was detected. Ordering Provider: ARY NORRIS Report Released Date/Time: Oct 21, 2023 02:15 PM Reporting Lab: [address] [address] Performing Lab: [facility] [address] [facility] [address] HEPATITIS A ANTIBODY (IGG) Non Reactive Non Reactive Oct 21, 2023 02:50 PM [facility] HEPATITIS B SURFACE ANTIBODY (HBsAb)-WH Specimen Type: SERUM No comment entered. Ordering Provider: ARY NORRIS Report Released Date/Time: Oct 21, 2023 02:15 PM Reporting Lab: [address] [address] Performing Lab: [address] [address] HBsAb Non Reactive Non Reactive Oct 21, 2023 02:50 PM [facility] URINALYSIS Specimen Type: URINE Comment: If Glucose = >500 and Ketones are positive, please alert the Physician. Ordering Provider: ARY NORRIS Report Released Date/Time: Oct 21, 2023 02:15 PM Reporting Lab: [address] [address] Performing Lab: [address] [address] UA COLOR Yellow Yellow UA APPEARANCE Clear Clear UA GLUCOSE NEGATIVE mg/dL Negative UA KETONES NEGATIVE mg/dL Negative UA BLOOD NEGATIVE mg/dL Negative UA PROTEIN 20 mg/dL Negative UA NITRITE NEGATIVE mg/dL Negative UA BILIRUBIN NEGATIVE mg/dL Negative UA SPECIFIC GRAVITY 1.024 H 1.016-1.022 UA pH 6.0 5.0-9.0 UA UROBILINOGEN <2.0 mg/dL <2.0 UA LEUKOCYTE NEGATIVE Negative Oct 21, 2023 02:50 PM [facility] MICROALBUMIN CREATININE RATIO PANEL Specimen Type: URINE No comment entered. Ordering Provider: ARY NORRIS Report Released Date/Time: Oct 21, 2023 02:15 PM Reporting Lab: [address] [address] Performing Lab: [address] [address] MICROALBUMIN/ CREATININE RATIO 6.2 mg/g 0-29.9 MICROALBUMIN, QUANTITATIVE 1.5 mg/dL RR UNAVAIL CREATININE URINE 240.98 mg/dL Oct 21, 2023 02:50 PM [facility] URIC ACID Specimen Type: SERUM No comment entered. Ordering Provider: ARY NORRIS Report Released Date/Time: Oct 21, 2023 02:15 PM Reporting Lab: [address] [address] Performing Lab: [address] [address] URIC ACID 5.4 mg/dL 3.5-7.2 Oct 21, 2023 02:50 PM [facility] CBC AND DIFF (AUTO) Specimen Type: BLOOD No comment entered. Ordering Provider: ARY NORRIS Report Released Date/Time: Oct 21, 2023 02:23 PM Reporting Lab: [address] [address] Performing Lab: [address] [address] WBC 5.99 10*3/uL 4.50-11.00 RBC 4.47 10*6/uL 4.23-5.66 HGB 14.0 g/dL 12.8-17 HCT 40.0 39.2-50.4 MCV 89.5 fL 82-99 MCHC 35.0 g/dL 30.8-35.1 PLT 211 10*3/uL 140-360 RDW-CV 12.3 12.0-16.0 [place], Abs 0.38 10*3/uL 0.30-1.10 MCH 31.3 pg 26.2-32.6 Neut % 72.5 43.7-75.8 Lymph % 17.5 14.0-42.3 [place] % 6.3 5.1-13.7 Eos % 2.7 0.4-6.8 Baso % 0.8 0.1-2.0 Neut, Abs 4.34 10*3/uL 2.20-7.60 Lymph, Abs 1.05 10*3/uL 1.00-3.20 Eos, Abs 0.16 10*3/uL 0.03-0.44 Baso, Abs 0.05 10*3/uL 0.01-0.13 Immature Gran % 0.2 0.0-0.7 Immature Gran, Abs 0.01 10*3/uL 0.00-0.06 Oct 21, 2023 02:50 PM [facility] TSH Specimen Type: SERUM No comment entered. Ordering Provider: ARY NORRIS Report Released Date/Time: Oct 21, 2023 02:15 PM Reporting Lab: [address] [address] Performing Lab: [address] [address] TSH 1.46 u[IU]/mL 0.35-5.00 Oct 21, 2023 02:50 PM [facility] HIV 1&2 Ag/Ab SCREEN Specimen Type: SERUM No comment entered. Ordering Provider: ARY NORRIS Report Released Date/Time: Oct 21, 2023 02:15 PM Reporting Lab: [address] [address] Performing Lab: [address] [address] HIV 1&2 Ag/Ab SCREEN NON-REACTIVE Nonreactive Oct 21, 2023 02:50 PM [facility] HEPATITIS C ANTIBODY (HCV)-ARC Specimen Type: SERUM Comment: Hep C Ab: No HCV antibody detected. If recent infection is suspected or other evidence suggests HCV infection, consider HCV nucleic acid testing Ordering Provider: ARY NORRIS Report Released Date/Time: Oct 21, 2023 02:15 PM Reporting Lab: [address] [address] Performing Lab: [address] [address] HEPATITIS C ANTIBODY NON-REACTIVE NON-REACTIVE Oct 21, 2023 02:50 PM [facility] BASIC METABOLIC PANEL (fasting) Specimen Type: SERUM No comment entered. Ordering Provider: ARY NORRIS Report Released Date/Time: Oct 21, 2023 02:15 PM Reporting Lab: [address] [address] Performing Lab: [address] [address] UREA NITROGEN 28 mg/dL H 7-25 GLUCOSE 147 mg/dL H 65-100 SODIUM 139 mmol/L 135-145 POTASSIUM 4.4 mmol/L 3.5-5.0 CHLORIDE 103 mmol/L 100-110 CO2 27 meq/L 20-30 CREATININE, Serum 1.74 mg/dL H 0.50-1.40 eGFR(CKD-EPI 2020) 45 mL/min L >60 Oct 21, 2023 02:50 PM [facility] LIVER FUNCTION Specimen Type: SERUM No comment entered. Ordering Provider: ARY NORRIS Report Released Date/Time: Oct 21, 2023 02:15 PM Reporting Lab: [address] [address] Performing Lab: [address] [address] PROTEIN,TOTAL 6.7 g/dL 6.0-8.3 ALBUMIN 4.1 g/dL 3.5-5.0 ALKALINE PHOSPHATASE 84 U/L 40-150 AST 19 U/L 5-34 ALT 28 U/L BILIRUBIN, TOTAL 0.6 mg/dL 0.2-1.2 Oct 21, 2023 02:50 PM [facility] LIPID PANEL FASTING Specimen Type: SERUM No comment entered. Ordering Provider: ARY NORRIS Report Released Date/Time: Oct 21, 2023 02:15 PM Reporting Lab: [facility] [address] [facility] [address] Performing Lab: [address] [address] CHOLESTEROL 84 mg/dL TRIGLYCERIDE 87 mg/dL 0-150 LDL calculated 30 mg/dL 0-129 CHOL/HDL 2.3 HDL CHOLESTEROL 37 mg/dL L 40-60 Oct 21, 2023 02:50 PM [facility] HEMOGLOBIN A1C PANEL Specimen Type: BLOOD Comment: Values obtained from A1C measurements can vary. For atypical A1C assays, a reported value of 7.0 could actually be between 6.72 and 7.28 if measured by a reference method. A reported value of 9.0 could actually be between 8.73 and 9.27. Ref: http://www.ng sp.org/CAPdat a.asp Ordering Provider: ARY NORRIS Report Released Date/Time: Oct 21, 2023 02:15 PM Reporting Lab: [facility] [address] [facility] [address] Performing Lab: [address] [address] HEMOGLOBIN A1C 6.1 H 4.0-5.6 Vital Signs: All taken on the encounter date This section contains inpatient and outpatient Vital Signs collected on the date of the Encounter. Date/Time Temperature Pulse Blood Pressure Respiratory Rate SP02 Pain Height Weight Body Mass Index Source Oct 21, 2023 01:06 PM 98.4 88 100/68 88 5 75 301 38 [facility] Social History: Smoking Status (Most current) and Tobacco Use (All prior to encounter date) This section includes the most current, and the historical, smoking and tobacco- related health factors from the [place] facility where the Encounter took place. Current Smoking Status This section includes the most current smoking, or tobacco-related health factor, from the [place] facility where the Encounter took place. Date/Time Current Smoking Status Comment Facil ity Oct 15, 2023 04:18 PM VA-TOBACCO NEVER USED [facility] Encounter Notes: All associated encounter notes This section contains the clinical notes associated to the Encounter. Date/Time Encounter Note(s) Provider Source Oct 22, 2023 02:22 PM LETTERS: LOCAL TITLE: PATIENT LETTER (B) STANDARD TITLE: LETTERS DATE OF NOTE: OCT 22, 2023@14:22 ENTRY DATE: OCT 22, 2023@14:23:02 AUTHOR: GERHARD NORRIS EXP COSIGNER: URGENCY: STATUS: COMPLETED The following letter was mailed to MICHELE PATEL on OCT 22, 2023 MICHELE PATEL [address] [place], [place] [address] OCT 22, 2023 Dear Mr PATELMORENAMICHELE BARRY, : Aug Your recent labs find your glucose a bit elevated. Please repeat labs before our Appt in December. Other labs were fine. Please share with any NONVA providers. Labs are viewable thru [facility]. Below are your pending appointments at the [facility]: 01/21/2024 13:30 CWM/NO/PACT 3 If you have questions, please contact me through our Telephone Advice Program at: [phone] extension [phone] or [phone] extension [phone] (toll free in this region only). Sincerely, Gerhard Norris PA-C [facility] [address] [place] [address] Ex GERHARD NORRIS [facility] Oct 21, 2023 02:21 PM ACCOUNTING OF DISCLOSURES NOTE: LOCAL TITLE: STATE PRESCRIPTION DRUG MONITORING PROGRAM STANDARD TITLE: ACCOUNTING OF DISCLOSURES NOTE DATE OF NOTE: OCT 21, 2023@14:21:26 ENTRY DATE: OCT 21, 2023@14:21:26 AUTHOR: GERHARD NORRIS EXP COSIGNER: URGENCY: STATUS: COMPLETED This PDMP query was submitted by Gerhard Norris. The clinical justification for this PDMP query is to review controlled substances prescribed outside of the [place], and any additional information that may become available, as an important component of standard clinical care, and in accordance with [facility] policy. Patient information was shared with the [facility] [place]. No prescription(s) for controlled substances outside the [place] were found in the last 90 days. /autumn/ Gerhard Norris PA-C STAFF PHYSICIAN DRIVERS LICENSE EXAMINER Signed: 10/21/2023 14:21 GERHARD NORRIS [facility] Oct 21, 2023 01:50 PM PREVENTIVE MEDICINE NURSING NOTE: LOCAL TITLE: CLINICAL REMINDERS/NURSING STANDARD TITLE: PREVENTIVE MEDICINE NURSING NOTE DATE OF NOTE: OCT 21, 2023@13:50 ENTRY DATE: OCT 21, 2023@13:50:44 AUTHOR: MARIANNE GARCIA EXP COSIGNER: URGENCY: STATUS: COMPLETED COVID-19 Immunization: Pfizer Patient received a prior dose of the Pfizer COVID-19 Vaccine. Documented: COVID-19 (PFIZER), MRNA, LNP-S, PF, 30 MCG/0.3 ML DOSE Historical Date Administered: Aug 09, 2020 Series: Series 1 Outside Location: Outside Healthcare Provider Information Source: FROM OTHER PROVIDER Patient received a prior dose of the Pfizer COVID-19 Vaccine. Documented: COVID-19 (PFIZER), MRNA, LNP-S, PF, 30 MCG/0.3 ML DOSE Historical Date Administered: Sep 27, 2020 Series: Series 2 Outside Location: Outside Healthcare Provider Information Source: FROM OTHER PROVIDER COVID-19 Immunization: Moderna Patient received a prior dose of the Moderna COVID-19 Vaccine. Documented: COVID-19 (MODERNA), MRNA, LNP-S, PF, 100 MCG/0.5ML DOSE OR 50 MCG/0.25ML DOSE Historical Date Administered: Mar 09, 2021 Series: Booster Outside Location: Outside Healthcare Provider Information Source: FROM OTHER PROVIDER /autunm/ MARIANNE GARCIA LPN Signed: 10/21/2023 13:55 MARIANNE GARCIA [facility] Oct 21, 2023 01:41 PM H & P NOTE: LOCAL TITLE: 10-10M/PHYSICIAN/MID-LEVEL (NON-TEMPLATE) STANDARD TITLE: H & P NOTE DATE OF NOTE: OCT 21, 2023@13:41 ENTRY DATE: OCT 21, 2023@13:41:33 AUTHOR: GERHARD NORRIS COSIGNER: URGENCY: STATUS: COMPLETED 10-10M/PHYSICIAN/MID-LEVEL (NON-TEMPLATE) Has ADDENDA CC: 58 year old MALE [place] beneficiary here to establish pcp......amenable to Co- management. Today, his CC is.........Back pain, aggravated by recent chiropractic treatment. He only brings a covid card, NO other records. He had a spinal stimulator implanted lsat fall, 'they are still fixing the program' when I ask how it works. Nursing notes reviewed and appreciated. Drug allergies: Patient has answered NKA Local PCP:See recent nursing notes. Consultants:as above. Vision care: Last exam:pending in December. Dental care: Last exam:...Hygiene discussed. Low cost local alternatives for dental care discussed. Hearing:Conservation discussed. VA and Non VA meds were reconciled with the patient who left with a corrected copy. See medication page for details. ROS: Denies rashes, chest pain, sob/crowder. No dizziness, nausea, vomiting or diarrhea. No blood in stool or urine. Pt has been eating, drinking, voiding and stooling in his normal fashion. Denies falls or excessive fall hazards in the home. Past Surgical History:Back Implant. Colonoscopy:One age 50'clean, ten years . EGD:None. Active problems - Computerized Problem List is the source for the followin. Diabetes mellitus type 2 2. Depression 3. Neuropathy 4. Sleep apnea 5. Arthritis 6. 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 7. Fatty liver 8. Cellulitis Cellulitis- Lower Left leg 9. Spondylosis Spondylosis Lumbar spine PFSH: FH: Noncontributory (patient denies FH of Glaucoma, BRCA, Prostate or Colon cancer).DM and Htn. 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 Living arrangements:Owns a condo, lives there with his . RATED DISABILITIES - NONE FOUND SERVICE CONNECTED % - NONE FOUND Access to Rxs, eye, ear and dental care as well as the question 'what do I do if I get sick between visits' discussed. PE: General: Pt is appropriately dressed, good eye contact. 98.4 F [36.9 C] (10/21/2023 13:06) 88 (10/21/2023 13:06) 88 (10/21/2023 13:06) 100/68 (10/21/2023 13:06) 5 (10/21/2023 13:06) 75 in [190.5 cm] (10/21/2023 13:06) 301 lb [136.53 kg] (10/21/2023 13:06) BMI: 37.7 TARGET HR: 85%=138 70%=113 Neuro: aox3, good historian, mood/affect appropriate, CNII-XII intact, HEENT: nc/at. Cor; RRR, nl s1,2 without murmurs, no carotid bruits, no LE edema, cyanosis, clubbing. LUNGS: Clear to auscultation bilaterally. Extremities: full active range of motion. he is obese. Assessment/Plan: 1.Back pain, we will obtain records, then consider further consultation. 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 [place]/caregiver was made aware of educational resources and printed information was offered and provided if desired. /caregiver has no health or medical concerns related to their concern of environmental exposure. No questions at this time /caregiver was informed of local points of contact. Contact information for local resources: Benefits/Claim for Disability Compensation Questions:National VBA [place] Healthcare Enrollment: [facility] Eligibility direct dialed at [phone] Registry: [facility] Health Coordinator ext [phone] The following connections were provided to the [place]/caregiver: No connections needed at this time BMI>30/>24.99 High Risk: At this visit, the health risks of obesity were reviewed and discussed with the , and the benefits of a weight management treatment program, such as MOVE! was discussed and offered to the . After discussing the health risks of being overweight or obese and providing information about available weight management treatment, the agreed to participate in the MOVE program and referral to the [facility] MOVE program was made. If MOVE program not availble, referred to Nutrition. RHS Screen: RHS Screen Environmental Check Upon inquiry, the individual reports that the environment is safe to proceed. Informed Consent to Screen and Document The individual consents to proceed with screening. The individual consents to documentation of responses. PRIMARY SCREEN: In the past 12 months, how often did a current or former intimate partner (e.g., boyfriend, girlfriend, , , sexual partner): 1. Scream or curse at you Never 2. Insult or talk down to you Never 3. Threaten you with harm Never 4. Physically hurt you Never 5. Force or pressure you to have sexual contact against your will, or when you were unable to say no Never ?? The HITS tool (items 1-4 above) is [place] copyright protected by Sheng Bueno MD, and the user has full rights to use it throughout the [place] system. PRIMARY SCREEN RESULT: The Primary Screen is NEGATIVE. The individual answered never to all forms of IPV above (i.e., answered never to all 5 items) The individual accepts education and/or resources: Other: EDUCATION: Other: Please obtain recent pcp and lean process deployment consultant notes, one year of labs nad imaging, immunization history and his one colooscopy reports. Add meds to nonva medlist. /autumn/ Gerhard Norris PA-C STAFF PHYSICIAN DRIVERS LICENSE EXAMINER Signed: 10/21/2023 14:22 Receipt Acknowledged By: 10/27/2023 13:24 /autumn/ GEGE MICHAEL RN REGISTERED NURSE 10/27/2023 ADDENDUM STATUS: COMPLETED requested records /autumn/ GEGE MICHAEL RN REGISTERED NURSE Signed: 10/27/2023 13:24 GERHARD NORRIS [place] [facility]
--- OUTSIDE RECORDS SUMMARY | 2024-06-19 21:05 | XMS_ITS ---
Author Name [facility] [place] Organization [facility] [place] Address [address] [place] [address] Care Team Providers Care Waiter/Waitress Cafeteria Name Role Phone MARILUZ STEWART Primary Care Provider Unavail able Selected Encounter This section includes the information on record at [place] for the Encounter. Date/Time Encounter Type Encounter Description Reason Provider Source Dec 14, 2023 10:44 AM Outpatient Encounter HT NON-VIDEO MONITORING ICD-10-CM E66.09 Other obesity due to excess calories SHERIE LUDWIG [facility] Encounter Template Text not used by [place] Assessments - Encounter Diagnoses This section includes the primary and secondary diagnoses documented for the Encounter. Date/Time Primary/Secondary Diagnosis Diagnosis Name Provider Source Dec 14, 2023 10:50 AM PRIMARY Obesity, unspecified DONALAS,SHERIE L [place] [facility] [facility] Dec 14, 2023 10:50 AM PRIMARY Other obesity due to excess calories [facility] Dec 14, 2023 10:50 AM SECONDARY Body mass index [BMI] 37.0-37.9, adult [facility]G [facility] Social History: Smoking Status (Most current) and Tobacco Use (All prior to encounter date) This section includes the most current, and the historical, smoking and tobacco- related health factors from the [place] facility where the Encounter took place. Current Smoking Status This section includes the most current smoking, or tobacco-related health factor, from the [place] facility where the Encounter took place. Date/Time Current Smoking Status Comment Facil ity Oct 15, 2023 04:18 PM VA-TOBACCO NEVER USED [facility] Encounter Notes: All associated encounter notes This section contains the clinical notes associated to the Encounter. Date/Time Encounter Note(s) Provider Source Dec 14, 2023 10:47 AM NUTRITION NOTE: LOCAL TITLE: LOW INTENSITY/LOW ACUITY MONTHLY MONITOR NOTE STANDARD TITLE: NUTRITION NOTE DATE OF NOTE: DEC 14, 2023@10:47 ENTRY DATE: DEC 14, 2023@10:48:13 AUTHOR: SHERIE LUDWIG EXP COSIGNER: URGENCY: STATUS: COMPLETED The [place] is enrolled in the Home Telehealth (HT) program and continues to be monitored via HT technology. The data sent by the is reviewed and analyzed by the HT staff, who provide ongoing case management and [place] health education while communicating and collaborating with the health care team as appropriate. This note covers a total of 30 minutes for the month monitored. Month monitored:NOVEMBER 2023 Dx: E66.09 obesity /es/ SHERIE LUDWIG RD,LDN STAFF DIETITIAN Signed: 12/14/2023 10:59 SHERIE LUDWIG [facility]
--- OUTSIDE RECORDS SUMMARY | 2024-06-19 21:05 | XMS_ITS | Encounter Summary ---
Author Name [facility] Organization [facility] Address [address] [place] [address] Care Team Providers Care Leadership Development Consultant Name Role Phone MARILUZ STEWART Primary Care Provider Unavail able Selected Encounter This section includes the information on record at [place] for the Encounter. Date/Time Encounter Type Encounter Description Reason Provider Source Feb 21, 2024 02:48 PM Outpatient Encounter HT NON-VIDEO MONITORING ICD-10-CM E66.09 Other obesity due to excess calories SHERIE LUDWIG [facility] Encounter Template Text not used by [place] Assessments - Encounter Diagnoses This section includes the primary and secondary diagnoses documented for the Encounter. Date/Time Primary/Secondary Diagnosis Diagnosis Name Provider Source Feb 21, 2024 02:55 PM PRIMARY Obesity, unspecified MANDARINELAS,SHERIE L [facility] [place] [facility] Feb 21, 2024 02:55 PM PRIMARY Other obesity due to excess calories [facility] Feb 21, 2024 02:55 PM SECONDARY Body mass index [BMI] 37.0-37.9, adult [facility] Social History: Smoking Status (Most current) and Tobacco Use (All prior to encounter date) This section includes the most current, and the historical, smoking and tobacco- related health factors from the [facility] facility where the Encounter took place. Current Smoking Status This section includes the most current smoking, or tobacco-related health factor, from the [facility] facility where the Encounter took place. Date/Time Current Smoking Status Comment Facil ity Oct 15, 2023 04:18 PM VA-TOBACCO NEVER USED [facility] Encounter Notes: All associated encounter notes This section contains the clinical notes associated to the Encounter. Date/Time Encounter Note(s) Provider Source Feb 21, 2024 02:54 PM CARE COORDINATION HOME TELEHEALTH SUMMARIZATION NOTE: LOCAL TITLE: L2 MONTHLY MONITOR NOTE STANDARD TITLE: CARE COORDINATION HOME TELEHEALTH SUMMARIZATION DATE OF NOTE: FEB 21, 2024@14:54 ENTRY DATE: FEB 21, 2024@14:54:53 AUTHOR: SHERIE LUDWIG EXP COSIGNER: URGENCY: STATUS: COMPLETED SUMMARY OF EPISODE (NON-VIDEO MONTHLY MONITORING): [place] is actively enrolled in the [facility] Program and has been monitored for the past month. Data is sent from the [place] home to the program [facility] and is reviewed for [id number] responses. Month monitored:JANUARY 2024 Diagnosis : E66.09 obesity /es/ SHERIE LUDWIG RD,LDN STAFF DIETITIAN Signed: 02/21/2024 15:04 [facility]
--- OUTSIDE RECORDS SUMMARY | 2024-06-19 21:05 | XMS_ITS | Continuity of Care Document ---
Author Name [facility] Organization [facility] Care Team Providers Care Information Security Specialist Name Role Phone [facility] Unavailable Unavailable Problems Combined list of problems from 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 It does not include entries that were removed or entered in error. Problem Status Onset Date Problem Type Date of Resolution Comments Source Cellulitis Active 06/28/19 15 Condition Oct 15, 2023 Entered By: HA HANCOCK Comment: Cellulitis- Lower Left leg [facility] Fatty liver Active 06/28/19 14 Condition [facility] Spondylosis Active 06/28/19 10 Condition Oct 15, 2023 Entered By: HA HANCOCK Comment: Spondylosis Lumbar spine [facility] Arthritis Active Condition [facility] Depression Active Condition [facility] Diabetes mellitus type 2 Active Condition [facility] Exposure [facility] potentially hazardous substance ([facility] [id number] ) Active Condition Oct 22, 2023 Entered By: GILBERT TORRES Comment: Entered automatically through ALISA Problem List documentation program [facility] 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 Active Condition [facility] Neuropathy Active Condition [facility] Sleep apnea Active Condition [facility] Diagnosis: ICD-10-CM E66.09 Other obesity due to excess calories Active Diagnosis [facility] Diagnosis: ICD-10-CM M47.9 Spondylosis, unspecified Active Diagnosis [facility] Immunizations Combined list of available immunizations from the 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 Immunization Series Date Given Administered By Site Reaction Lot Number CVX Code Drug Project Admin Status Comments Source INFLUENZA, UNSPECIFIED FORMULATION 2022 88 complet ed [facility] COVID-19 (MODERNA), MRNA, LNP-S, PF, 100 MCG/0.5ML DOSE OR 50 MCG/0.25ML DOSE 2020 207 complet ed [facility] COVID-19 (PFIZER), MRNA, LNP-S, PF, 30 MCG/0.3 ML DOSE 2 2020 208 complet ed [facility] COVID-19 (PFIZER), MRNA, LNP-S, PF, 30 MCG/0.3 ML DOSE 1 2020 208 complet ed [facility] Results Combined list of recent chemistry, hematology and other laboratory results from Department of Defense and Veterans Affairs, ranging from 15 months to all on record, depending upon the facility. Order Name Results Value Reference Range Date Interpretation Specimen Comments Source HEPATITI S A ANTIBODY (IGG) HEPATITIS A VIRUS IGG AB [PRESENCE] IN SERUM Non Reactive 10/20 Specimen Type: SERUM Comment: Hep A IgG: A 'Non-reacti ve' result indicates no anti-HAV IgG was detected. Ordering Provider: Pablo STEWART Report Released Date/Time: Oct 21, 2023 02:15 PM Reporting Lab: [facility] [address] [facility] [address] Performing Lab: [address] [address] [facility] HEPATITI S B SURFACE ANTIBODY (HBsAb)- WH HEPATITIS B VIRUS SURFACE AB [PRESENCE] IN SERUM BY IMMUNOASSA Y Non Reactive 10/20 Specimen Type: SERUM No comment entered. Ordering Provider: Pablo STEWART Report Released Date/Time: Oct 21, 2023 02:15 PM Reporting Lab: [facility] [address] [facility] [address] Performing Lab: [facility] [address] [facility] [address] [facility] URINALYS IS COLOR OF URINE Yellow 10/20 Specimen Type: URINE Comment: If Glucose = >500 and Ketones are positive, please alert the Physician. Ordering Provider: Pablo STEWART Report Released Date/Time: Oct 21, 2023 02:15 PM Reporting Lab: [facility] [place] [facility] [address] [facility] [address] Performing Lab: [facility] [place] [facility] [address] [facility] [address] [facility] [place] [facility] URINALYS IS APPEARANCE OF URINE Clear 10/20 Specimen Type: URINE Comment: If Glucose = >500 and Ketones are positive, please alert the Physician. Ordering Provider: Pablo STEWART Report Released Date/Time: Oct 21, 2023 02:15 PM Reporting Lab: [facility] [place] [address] [address] Performing Lab: [facility] [place] [facility] [address] [facility] [address] [facility] [place] [facility] URINALYS IS GLUCOSE [MASS/VOLU ME] IN URINE NEGATIVE mg/dL 10/20 Specimen Type: URINE Comment: If Glucose = >500 and Ketones are positive, please alert the Physician. Ordering Provider: Pablo STEWART Report Released Date/Time: Oct 21, 2023 02:15 PM Reporting Lab: [facility] [place] [facility] [address] [facility] [address] Performing Lab: [facility] [place] [facility] [address] [facility] [address] [facility] [place] [facility] URINALYS IS KETONES [MASS/VOLU ME] IN URINE BY TEST STRIP NEGATIVE mg/dL 10/20 Specimen Type: URINE Comment: If Glucose = >500 and Ketones are positive, please alert the Physician. Ordering Provider: Pablo STEWART Report Released Date/Time: Oct 21, 2023 02:15 PM Reporting Lab: [facility] [place] [address] [address] Performing Lab: [facility] [place] [facility] [address] [facility] [address] [facility] [place] [facility] URINALYS IS ERYTHROCYT ES [PRESENCE] IN URINE SEDIMENT BY LIGHT MICROSCOPY NEGATIVE mg/dL 10/20 Specimen Type: URINE Comment: If Glucose = >500 and Ketones are positive, please alert the Physician. Ordering Provider: Pablo STEWART Report Released Date/Time: Oct 21, 2023 02:15 PM Reporting Lab: [facility] [place] [facility] [address] [facility] [address] Performing Lab: [facility]ITALRBULL[facility]ITALTRN [facility]ITAL[facility] [address] [facility] [address] [facility]ITALN [place] [facility] URINALYS IS PROTEIN [MASS/VOLU ME] IN URINE BY TEST STRIP 20 mg/dL 10/20 Specimen Type: URINE Comment: If Glucose = >500 and Ketones are positive, please alert the Physician. Ordering Provider: Pablo STEWART Report Released Date/Time: Oct 21, 2023 02:15 PM Reporting Lab: [facility] [place] [facility] [address] [facility] [address] Performing Lab: [facility] [place] [facility] [address] [facility] [address] [facility]OSPITALN [facility]ITALUSE [facility] URINALYS IS NITRITE [PRESENCE] IN URINE NEGATIVE mg/dL 10/20 Specimen Type: URINE Comment: If Glucose = >500 and Ketones are positive, please alert the Physician. Ordering Provider: Pablo STEWART Report Released Date/Time: Oct 21, 2023 02:15 PM Reporting Lab: [facility] [place] [facility] [address] [facility] [address] Performing Lab: [facility] [place] [facility] [address] [facility] [address] [facility]ITALR[facility] HOSPITALN [facility]CHUSE [facility] URINALYS IS BILIRUBIN. TOTAL [PRESENCE] IN URINE NEGATIVE mg/dL 10/20 Specimen Type: URINE Comment: If Glucose = >500 and Ketones are positive, please alert the Physician. Ordering Provider: Pablo STEWART Report Released Date/Time: Oct 21, 2023 02:15 PM Reporting Lab: [facility]ITALRBULL[facility]PITALTRN [place] [facility] [address] [facility] [address] Performing Lab: [place] [facility] [place] [facility] [address] [facility] [address] [facility]ITALRBULLOCK [facility] HOSPITALTRN [place] [facility] URINALYS IS SPECIFIC GRAVITY OF URINE BY REFRACTOME TRY 1.024 1.016 - 1.022 10/20 H Specimen Type: URINE Comment: If Glucose = >500 and Ketones are positive, please alert the Physician. Ordering Provider: Pablo STEWART Report Released Date/Time: Oct 21, 2023 02:15 PM Reporting Lab: [facility] [place] [address] [address] Performing Lab: [facility]ITAL[facility] TRN [facility]USE[address] [address] [facility]ITALRBULLOCK COUNTY HOSPITALTRN [facility] HOSPITALUSE [facility] URINALYS IS PH OF URINE BY TEST STRIP 6.0 5.0 - 9.0 10/20 Specimen Type: URINE Comment: If Glucose = >500 and Ketones are positive, please alert the Physician. Ordering Provider: Pablo STEWART Report Released Date/Time: Oct 21, 2023 02:15 PM Reporting Lab: [facility]ITALRBULL[facility]OSPITALTRN [place] [address] [address] Performing Lab: [facility]ITALRL TRN [facility]OSPITALUSETS [facility] [address] [facility] [address] [facility]ITALRL TRN [facility]ENTERCHUSE [facility] URINALYS IS UROBILINOG EN [MASS/VOLU ME] IN URINE BY TEST STRIP <2.0mg/d L <2.0 - 2.0 10/20 Specimen Type: URINE Comment: If Glucose = >500 and Ketones are positive, please alert the Physician. Ordering Provider: Pablo STEWART Report Released Date/Time: Oct 21, 2023 02:15 PM Reporting Lab: [facility]ITALRBULL[facility] HOSPITALTRN [place] [facility] [address] [facility] [address] Performing Lab: [facility] [place] [facility] [address] [facility] [address] [facility] [place] [facility] URINALYS IS LEUKOCYTE ESTERASE [PRESENCE] IN URINE BY TEST STRIP NEGATIVE 10/20 Specimen Type: URINE Comment: If Glucose = >500 and Ketones are positive, please alert the Physician. Ordering Provider: Pablo STEWART Report Released Date/Time: Oct 21, 2023 02:15 PM Reporting Lab: [facility] [place] [facility] [address] [facility] [address] Performing Lab: [facility] [place] [facility] [address] [facility] [address] [facility] [place] [facility] MICROALB UMIN CREATINI NE RATIO PANEL MICROALBUM IN/CREATIN INE [MASS RATIO] IN URINE 6.2 mg/g 0 - 29.9 10/20 Specimen Type: URINE No comment entered. Ordering Provider: Pablo STEWART Report Released Date/Time: Oct 21, 2023 02:15 PM Reporting Lab: [facility] [place] [facility] [address] [facility] [address] Performing Lab: [facility] [place] [facility] [address] [facility] [address] [facility] [place] [facility] MICROALB UMIN CREATINI NE RATIO PANEL MICROALBUM IN [MASS/VOLU ME] IN URINE 1.5 mg/dL 10/20 Specimen Type: URINE No comment entered. Ordering Provider: Pablo STEWART Report Released Date/Time: Oct 21, 2023 02:15 PM Reporting Lab: [facility] [place] [facility] [address] [facility] [address] Performing Lab: [facility] [place] [facility] [address] [facility] [address] [facility] [place] [facility] MICROALB UMIN CREATINI NE RATIO PANEL CREATININE [MASS/VOLU ME] IN URINE 240.98 mg/dL 10/20 Specimen Type: URINE No comment entered. Ordering Provider: Pablo STEWART Report Released Date/Time: Oct 21, 2023 02:15 PM Reporting Lab: [facility] [address] [facility] [address] Performing Lab: [facility] [address] [facility] [address] [facility] [place] [facility] URIC ACID URATE [MASS/VOLU ME] IN SERUM OR PLASMA 5.4 mg/dL 3.5 - 7.2 10/20 Specimen Type: SERUM No comment entered. Ordering Provider: Pablo STEWART Report Released Date/Time: Oct 21, 2023 02:15 PM Reporting Lab: [facility] [place] [facility] [address] [facility] [address] Performing Lab: [facility] [place] [facility] [address] [facility] [address] [facility] [place] [facility] CBC AND DIFF (AUTO) LEUKOCYTES [#/VOLUME] IN BLOOD BY AUTOMATED COUNT 5.99 10*3/uL 4.50 - 11.00 10/20 Specimen Type: BLOOD No comment entered. Ordering Provider: Pablo STEWART Report Released Date/Time: Oct 21, 2023 02:23 PM Reporting Lab: [facility] [place] [facility] [address] [facility] [address] Performing Lab: [facility] [place] [facility] [address] [facility] [address] [facility] [place] [facility] CBC AND DIFF (AUTO) ERYTHROCYT ES [#/VOLUME] IN BLOOD BY AUTOMATED COUNT 4.47 10*6/uL 4.23 - 5.66 10/20 Specimen Type: BLOOD No comment entered. Ordering Provider: Pablo STEWART Report Released Date/Time: Oct 21, 2023 02:23 PM Reporting Lab: [facility] [address] [facility] [address] Performing Lab: [facility] [place] [facility] [address] [facility] [address] [facility] CBC AND DIFF (AUTO) HEMOGLOBIN [MASS/VOLU ME] IN BLOOD 14.0 g/dL 12.8 - 17 10/20 Specimen Type: BLOOD No comment entered. Ordering Provider: Pablo STEWART Report Released Date/Time: Oct 21, 2023 02:23 PM Reporting Lab: [facility] [place] [facility] [address] [facility] [address] Performing Lab: [facility] [address] [facility] [address] [facility] [place] [facility] CBC AND DIFF (AUTO) HEMATOCRIT [VOLUME FRACTION] OF BLOOD BY AUTOMATED COUNT 40.0 39.2 - 50.4 10/20 Specimen Type: BLOOD No comment entered. Ordering Provider: Pablo STEWART Report Released Date/Time: Oct 21, 2023 02:23 PM Reporting Lab: [facility] [place] [facility] [address] [facility] [address] Performing Lab: [facility] [place] [facility] [address] [facility] [address] [facility] [place] [facility] CBC AND DIFF (AUTO) MCV [ENTITIC VOLUME] BY AUTOMATED COUNT 89.5 fL 82 - 99 10/20 Specimen Type: BLOOD No comment entered. Ordering Provider: Pablo STEWART Report Released Date/Time: Oct 21, 2023 02:23 PM Reporting Lab: [facility] [place] [facility] [address] [facility] [address] Performing Lab: [facility] [place] [facility] [address] [facility] [address] [facility] [place] CBC AND DIFF (AUTO) MCHC [MASS/VOLU ME] BY AUTOMATED COUNT 35.0 g/dL 30.8 - 35.1 10/20 Specimen Type: BLOOD No comment entered. Ordering Provider: Pablo STEWART Report Released Date/Time: Oct 21, 2023 02:23 PM Reporting Lab: [facility] [place] [facility] [address] [facility] [address] Performing Lab: [facility] [place] [facility] [address] [facility] [address] [facility] [place] [facility] CBC AND DIFF (AUTO) PLATELETS [#/VOLUME] IN BLOOD BY AUTOMATED COUNT 211 10*3/uL 140 - 360 10/20 Specimen Type: BLOOD No comment entered. Ordering Provider: Pablo STEWART Report Released Date/Time: Oct 21, 2023 02:23 PM Reporting Lab: [facility] [place] [facility] [address] [facility] [address] Performing Lab: [facility] [place] [address] [address] [facility] [place] [facility] CBC AND DIFF (AUTO) ERYTHROCYT E DISTRIBUTI ON WIDTH [RATIO] BY AUTOMATED COUNT 12.3 12.0 - 16.0 10/20 Specimen Type: BLOOD No comment entered. Ordering Provider: Pablo STEWART Report Released Date/Time: Oct 21, 2023 02:23 PM Reporting Lab: [facility] [place] [facility] [address] [facility] [address] Performing Lab: [facility] [place] [facility] [address] [facility] [address] [facility] [place] [facility] CBC AND DIFF (AUTO) MONOCYTES [#/VOLUME] IN BLOOD BY AUTOMATED COUNT 0.38 10*3/uL 0.30 - 1.10 10/20 Specimen Type: BLOOD No comment entered. Ordering Provider: Pablo STEWART Report Released Date/Time: Oct 21, 2023 02:23 PM Reporting Lab: [facility] [place] [facility] [address] [facility] [address] Performing Lab: [facility] [place] [address] [address] [facility] [place] [facility] CBC AND DIFF (AUTO) MCH [ENTITIC MASS] BY AUTOMATED COUNT 31.3 pg 26.2 - 32.6 10/20 Specimen Type: BLOOD No comment entered. Ordering Provider: Pablo STEWART Report Released Date/Time: Oct 21, 2023 02:23 PM Reporting Lab: [facility] [address] [facility] [address] Performing Lab: [facility] [address] [facility] [address] [facility] [place] CBC AND DIFF (AUTO) NEUTROPHIL S/100 LEUKOCYTES IN BLOOD BY AUTOMATED COUNT 72.5 43.7 - 75.8 10/20 Specimen Type: BLOOD No comment entered. Ordering Provider: Pablo STEWART Report Released Date/Time: Oct 21, 2023 02:23 PM Reporting Lab: [facility] [address] [facility] [address] Performing Lab: [facility] [place] [facility] [address] [facility] [address] [facility] [place] CBC AND DIFF (AUTO) LYMPHOCYTE S/100 LEUKOCYTES IN BLOOD BY AUTOMATED COUNT 17.5 14.0 - 42.3 10/20 Specimen Type: BLOOD No comment entered. Ordering Provider: Pablo STEWART Report Released Date/Time: Oct 21, 2023 02:23 PM Reporting Lab: [facility] [address] [facility] [address] Performing Lab: [facility] [place] [facility] [address] [facility] [address] [facility] [place] CBC AND DIFF (AUTO) MONOCYTES/ 100 LEUKOCYTES IN BLOOD BY AUTOMATED COUNT 6.3 5.1 - 13.7 10/20 Specimen Type: BLOOD No comment entered. Ordering Provider: Pablo STEWART Report Released Date/Time: Oct 21, 2023 02:23 PM Reporting Lab: [facility] [place] [facility] [address] [facility] [address] Performing Lab: [facility] [place] [facility] [address] [facility] [address] [facility] [place] CBC AND DIFF (AUTO) EOSINOPHIL S/100 LEUKOCYTES IN BLOOD BY AUTOMATED COUNT 2.7 0.4 - 6.8 10/20 Specimen Type: BLOOD No comment entered. Ordering Provider: Pablo STEWART Report Released Date/Time: Oct 21, 2023 02:23 PM Reporting Lab: [facility] [place] [address] [address] Performing Lab: [facility] [place] [facility] [address] [facility] [address] [facility] [place] [facility] CBC AND DIFF (AUTO) BASOPHILS/ 100 LEUKOCYTES IN BLOOD BY AUTOMATED COUNT 0.8 0.1 - 2.0 10/20 Specimen Type: BLOOD No comment entered. Ordering Provider: Pablo STEWART Report Released Date/Time: Oct 21, 2023 02:23 PM Reporting Lab: [facility] [place] [address] [address] Performing Lab: [facility] [place] [address] [address] [facility] [place] [facility] CBC AND DIFF (AUTO) NEUTROPHIL S [#/VOLUME] IN BLOOD BY AUTOMATED COUNT 4.34 10*3/uL 2.20 - 7.60 10/20 Specimen Type: BLOOD No comment entered. Ordering Provider: Pablo STEWART Report Released Date/Time: Oct 21, 2023 02:23 PM Reporting Lab: [facility] [place] [address] [address] Performing Lab: [facility] [place] [address] [address] [facility] [place] [facility] CBC AND DIFF (AUTO) LYMPHOCYTE S [#/VOLUME] IN BLOOD BY AUTOMATED COUNT 1.05 10*3/uL 1.00 - 3.20 10/20 Specimen Type: BLOOD No comment entered. Ordering Provider: Pablo STEWART Report Released Date/Time: Oct 21, 2023 02:23 PM Reporting Lab: [facility] [place] [address] [address] Performing Lab: [facility] [place] [facility] [address] [facility] [address] [facility] [place] CBC AND DIFF (AUTO) EOSINOPHIL S [#/VOLUME] IN BLOOD BY AUTOMATED COUNT 0.16 10*3/uL 0.03 - 0.44 10/20 Specimen Type: BLOOD No comment entered. Ordering Provider: Pablo STEWART Report Released Date/Time: Oct 21, 2023 02:23 PM Reporting Lab: [facility] [place] [facility] [address] [facility] [address] Performing Lab: [facility] [place] [address] [address] [facility] [place] CBC AND DIFF (AUTO) BASOPHILS [#/VOLUME] IN BLOOD BY AUTOMATED COUNT 0.05 10*3/uL 0.01 - 0.13 10/20 Specimen Type: BLOOD No comment entered. Ordering Provider: Pablo STEWART Report Released Date/Time: Oct 21, 2023 02:23 PM Reporting Lab: [facility] [place] [address] [address] Performing Lab: [facility] [place] [address] [address] [facility] [place] [facility] CBC AND DIFF (AUTO) IMMATURE GRANULOCYT ES/100 LEUKOCYTES IN BLOOD BY AUTOMATED COUNT 0.2 0.0 - 0.7 10/20 Specimen Type: BLOOD No comment entered. Ordering Provider: Pablo STEWART Report Released Date/Time: Oct 21, 2023 02:23 PM Reporting Lab: [facility] [place] [address] [address] Performing Lab: [facility] [place] [address] [address] [facility] CBC AND DIFF (AUTO) IMMATURE GRANULOCYT ES [#/VOLUME] IN BLOOD 0.01 10*3/uL 0.00 - 0.06 10/20 Specimen Type: BLOOD No comment entered. Ordering Provider: Pablo STEWART Report Released Date/Time: Oct 21, 2023 02:23 PM Reporting Lab: [facility] [place] [facility] [address] [facility] [address] Performing Lab: [facility] [place] [address] [address] [facility] [place] [facility] TSH THYROTROPI N [UNITS/VOL UME] IN SERUM OR PLASMA 1.46 u[IU]/mL 0.35 - 5.00 10/20 Specimen Type: SERUM No comment entered. Ordering Provider: Pablo STEWART Report Released Date/Time: Oct 21, 2023 02:15 PM Reporting Lab: [facility] [place] [address] [address] Performing Lab: [facility] [address] [address] [facility] HIV 1&2 Ag/Ab SCREEN HIV 1+2 AB+HIV1 P24 AG [PRESENCE] IN SERUM OR PLASMA BY IMMUNOASSA Y NON-REAC TIVE 10/20 Specimen Type: SERUM No comment entered. Ordering Provider: Pablo STEWART Report Released Date/Time: Oct 21, 2023 02:15 PM Reporting [facility] [address] [address] [facility] Lab[facility] [address] [address] [place] [facility] [place] [facility] HEPATITI S C ANTIBODY (HCV)-AR C HEPATITIS C VIRUS AB [PRESENCE] IN SERUM NON-REAC TIVE 10/20 Specimen Type: SERUM Comment: Hep C Ab: No HCV antibody detected. If recent infection is suspected or other evidence suggests HCV infection, consider HCV nucleic acid testing Ordering Provider: Pablo STEWART Report Released Date/Time: Oct 21, 2023 02:15 PM Reporting [facility] [address] [address] Performing Lab: [place] [facility] [place] [facility] [address] [facility] [phone] [place] [facility] [place] [facility] BASIC METABOLI C PANEL (fasting ) UREA NITROGEN [MASS/VOLU ME] IN SERUM OR PLASMA 28 mg/dL 7 - 25 10/20 H Specimen Type: SERUM No comment entered. Ordering Provider: Pablo STEWART Report Released Date/Time: Oct 21, 2023 02:15 PM Reporting Lab: [place] [facility] [place] [facility] [address] [facility] [phone] Performing Lab: [facility] [address] [facility] [phone] [facility] BASIC METABOLI C PANEL (fasting ) GLUCOSE [MASS/VOLU ME] IN SERUM OR PLASMA 147 mg/dL 65 - 100 10/20 H Specimen Type: SERUM No comment entered. Ordering Provider: Pablo STEWART Report Released Date/Time: Oct 21, 2023 02:15 PM Reporting [facility] [address] [facility] [address] Performing Lab: [place] [facility] [address] [facility] [address] [facility] BASIC METABOLI C PANEL (fasting ) SODIUM [MOLES/VOL UME] IN SERUM OR PLASMA 139 mmol/L 135 - 145 10/20 Specimen Type: SERUM No comment entered. Ordering Provider: Pablo STEWART Report Released Date/Time: Oct 21, 2023 02:15 PM Reporting Lab: [place] [facility] [facility] [address] [facility] [address] Performing Lab: [place] [facility] [facility] [address] [facility] [address] [facility] BASIC METABOLI C PANEL (fasting ) POTASSIUM [MOLES/VOL UME] IN SERUM OR PLASMA 4.4 mmol/L 3.5 - 5.0 10/20 Specimen Type: SERUM No comment entered. Ordering Provider: Pablo STEWART Report Released Date/Time: Oct 21, 2023 02:15 PM Reporting Lab: [facility] [place] [facility] [address] [facility] [address] Performing Lab: [place] [facility] [place] [facility] [address] [facility] [address] [facility] [place] [facility] BASIC METABOLI C PANEL (fasting ) CHLORIDE [MOLES/VOL UME] IN SERUM OR PLASMA 103 mmol/L 100 - 110 10/20 Specimen Type: SERUM No comment entered. Ordering Provider: Pablo TSEWART Report Released Date/Time: Oct 21, 2023 02:15 PM Reporting Lab: [facility] [place] [address] [address] Performing Lab: [facility] [place] [address] [address] [facility] [place] [facility] BASIC METABOLI C PANEL (fasting ) CARBON DIOXIDE, TOTAL [MOLES/VOL UME] IN SERUM OR PLASMA 27 meq/L 20 - 30 10/20 Specimen Type: SERUM No comment entered. Ordering Provider: Pablo STEWART Report Released Date/Time: Oct 21, 2023 02:15 PM Reporting Lab: [facility] [place] [address] [address] Performing Lab: [facility] [place] [address] [address] [facility] [place] [facility] BASIC METABOLI C PANEL (fasting ) CREATININE [MASS/VOLU ME] IN SERUM OR PLASMA 1.74 mg/dL 0.50 - 1.40 10/20 H Specimen Type: SERUM No comment entered. Ordering Provider: Pablo STEWART Report Released Date/Time: Oct 21, 2023 02:15 PM Reporting Lab: [facility] [place] [address] [address] Performing Lab: [facility] [place] [address] [address] [facility] [place] [facility] BASIC METABOLI C PANEL (fasting ) GLOMERULAR FILTRATION RATE/1.73 SQ M.PREDICTE D [VOLUME RATE/AREA] IN SERUM, PLASMA OR BLOOD BY CREATININE -BASED FORMULA (CKD-EPI 2020) 45 mL/min 60 10/20 L Specimen Type: SERUM No comment entered. Ordering Provider: Pablo STEWART Report Released Date/Time: Oct 21, 2023 02:15 PM Reporting Lab: [facility] [place] [facility] [address] [facility] [address] Performing Lab: [facility] [place] [facility] [address] [facility] [address] [facility] [place] [facility] Vital Signs Combined list of inpatient and outpatient Vital Signs from Department of Defense and Veterans Affairs, ranging from 12 months to all on record, depending upon the facility. Vital Sign Value Date Comments Source WEIGHT 305 04/27/2024 15:05:35 [facility] [place] [facility] BMI 38kg/m2 04/27/2024 15:05:35 [facility] WEIGHT 304 03/24/2024 13[facility]20:57 [facility] BMI 38kg/m2 03/24/2024 13:20:57 [facility] WEIGHT 302 01/25/2024 14:53:18 [facility] [place] BMI 38kg/m2 01/25/2024 14:53:18 [facility] SYSTOLIC BLOOD PRESSURE 100 10/21/19 24 13:06:03 [facility] DIASTOLIC BLOOD PRESSURE 68 10/20/ 024 13:06:03 [facility] WEIGHT 301 10/21/2023 13:06:03 [facility] BMI 38kg/m2 10/21/2023 13:06:03 [facility] PAIN 5 10/21/2023 13:06:03 [facility] HEIGHT 75 10/21/2023 13:06:03 [facility] TEMPERATURE 98.4 10/21/2023 13:06:03 [facility] PULSE 88 10/21/2023 13:06:03 [facility] RESPIRATION 88 10/21/2023 13:06:03 [facility] Encounters Combined list of: 1) Encounters from Department of Veterans Affairs facilities going back up to thelast 18 months. 2) Encounters from the Department of [employer] facilities going back up to 280 months. Location Location Details Encounter Type Encounter Number Reason For Visit Attending Provider ADM Date DC Date Status Disposition Source [facility] Encounter [id number] 02/26 [facility] [id number] 10/11 [facility] En[facility] [id number] 10/11 [facility] En[facility] [id number] 10/14 [facility] En[facility] [id number] 10/14 [facility] OFFICE O/P NEW MOD 45 MIN [id number] Diagnos is: ICD-10- CM 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
MARILUZ STEWART 10/20 [facility] Encounter [id number] Diagnos is: ICD-10- CM E66.09 Other obesity due to excess calorie s
MANEKAS,DI NA L 11/17 [facility] En[facility] [id number] 11/25 [facility] En[facility] [id number] Diagnos is: ICD-10- CM E66.09 Other obesity due to excess calorie s
MANEKAS,DI NA L 12/13 [facility] En[facility] [id number] 01/10 [facility] En[facility] [id number] Diagnos is: ICD-10- CM E66.09 Other obesity due to excess calorie s
MANEKAS,DI NA L 01/13 [facility] En[facility] [id number] 02/20 [facility] Encounter [id number] Diagnos is: ICD-10- CM E66.09 Other obesity due to excess calorie s
MANEKAS,DI NA L 02/20 [facility] En[facility] [id number] SARAH GARCIA ISTOPHER E 02/23 [facility] Encounter [id number] Diagnos is: ICD-10- CM E66.09 Other obesity due to excess calorie s
MANEKAS,DI NA L 03/13 [facility] [place] [facility] [place] [facility] Outpatient Encounter [id number] 03/27 [facility] [place] [facility] Outpatient Encounter [id number] Diagnos is: ICD-10- CM E66.09 Other obesity due to excess calorie s
IAM LUDWIG NA L 04/14 [facility] [place] [facility] [place] [facility] Outpatient Encounter [id number] 05/02 [facility] [place] [facility] Social History Combined list of available smoking, tobacco, and other social 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 Social History Type Response Date Comment [facility] e Tobacco smoking status [facility] VA-TOBACCO NEVER USED 10/15/2023 [facility] [place] [facility]
--- OUTSIDE RECORDS SUMMARY | 2024-06-19 21:05 | XMS_ITS ---
Author Name [facility] [place] [facility] [place] Address [address] [place] [address] Care Team Providers Care Patient Observation Assistant Name Role Phone MARILUZ STEWART Primary Care Provider Unavail able Selected Encounter This section includes the information on record at [place] for the Encounter. Date/Time Encounter Type Encounter Description Reason Provider Source Feb 24, 2024 12:48 PM Outpatient Encounter PRIMARY CARE/MEDICINE GABRIELLA GARCIA Encounter Template Text not used by [place] Social History: Smoking Status (Most current) and Tobacco Use (All prior to encounter date) This section includes the most current, and the historical, smoking and tobacco- related health factors from the [place] facility where the Encounter took place. Current Smoking Status This section includes the most current smoking, or tobacco-related health factor, from the [place] facility where the Encounter took place. Date/Time Current Smoking Status Comment Facil loyda Oct 15, 2023 04:18 PM VA-TOBACCO NEVER USED [place] [facility] [facility] Encounter Notes: All associated encounter notes This section contains the clinical notes associated to the Encounter. Date/Time Encounter Note(s) Provider Source Feb 24, 2024 12:48 PM PRIMARY CARE SECUR E MESSAGING: LOCAL TITLE: PRIMARY CARE SECURE MESSAGING STANDARD TITLE: PRIMARY CARE SECURE MESSAGING DATE OF NOTE: FEB 24, 2024@12:48 ENTRY DATE: FEB 24, 2024@12:48:50 AUTHOR: MARIANNE GARCIA EXP COSIGNER: URGENCY: STATUS: COMPLETED ------Original Message -------- Sent: 02/24/2024 12:48 PM ET From: MARIANNE GARCIA To: MICHELE PATEL Subject: General:General Inquiry Please let us know if you have had a colonoscopy or have one scheduled, please give dates and locations /autumn/ MARIANNE GARCIA BAND SALVAGER Signed: 02/24/2024 12:48 MARIANNE GARCIA [place] [facility] [place] [facility]
--- OUTSIDE RECORDS SUMMARY | 2024-06-19 21:05 | XMS_ITS | Encounter Summary ---
Author Name [facility] [place] [place] [facility] [place] [facility] [place] Address [address] [place] [address] Care Team Providers Care Elastic Attacher Chainstitch Name Role Phone MARILUZ STEWART Primary Care Provider Unavail able Selected Encounter This section includes the information on record at [place] for the Encounter. Date/Time Encounter Type Encounter Description Reason Pro vider Source November 26, 2023 01:35 PM Outpatient Encounter TELEPHONE/MEDICINE IHE Encounter Template Text not used by [place] Social History: Smoking Status (Most current) and Tobacco Use (All prior to encounter date) This section includes the most current, and the historical, smoking and tobacco- related health factors from the [place] facility where the Encounter took place. Current Smoking Status This section includes the most current smoking, or tobacco-related health factor, from the [place] facility where the Encounter took place. Date/Time Current Smoking Status Comment Facil loyda Oct 15, 2023 04:18 PM VA-TOBACCO NEVER USED [facility] Encounter Notes: All associated encounter notes This section contains the clinical notes associated to the Encounter. Date/Time Encounter Note(s) Provider Source November 26, 2023 01:35 PM NUTRITION NOTE: LOCAL TITLE: LOW INTENSITY/LOW ACUITY NOTE STANDARD TITLE: NUTRITION NOTE DATE OF NOTE: NOVEMBER 26, 2023@13:35 ENTRY DATE: NOVEMBER 26, 2023@13:35:27 AUTHOR: SHERIE LUDWIG COSIGNER: URGENCY: STATUS: COMPLETED Patient is actively enrolled in the Home TeleMOVE! Weight Management program and is monitored with an in-home messaging device. Monthly data summary is below. Pt identified using two forms of ID: full name and birthdate WEIGHT HISTORY: 11/24/2023 21:01 301.0 Numeric 11/22/2023 23:28 301.0 Numeric 11/20/2023 10:41 298.0 Numeric 11/18/2023 10:15 302.0 Numeric 11/15/2023 11:34 302.0 Numeric INTERVENTION: Monthly data summary [place] has completed 5 sessions out of 90 sessions. Pt has lost 1 pound since start of TeleMOVE! program on Did not speak with pt. New to program. PLAN: Will continue to monitor the 's Home TeleMOVE! transmissions and will follow-up, as appropriate. /autumn/ SHERIE LUDWIG RD,AMRITN STAFF DIETITIAN Signed: 11/26/2023 13:36 SHERIE LUDWIG [place] [facility]
--- OUTSIDE RECORDS SUMMARY | 2024-06-19 21:05 | XMS_ITS ---
Author Name [facility] [place] [facility] [place] [facility] [place] Address [address] [place] [address] Care Team Providers Care Cardiac Exercise Specialist Name Role Phone MARILUZ STEWART Primary Care Provider Unavail able Selected Encounter This section includes the information on record at [place] for the Encounter. Date/Time Encounter Type Encounter Description Reason Pro vider Source Feb 21, 2024 11:55 AM Outpatient Encounter ADMIN PAT ACTIVTIES (MASNONCT) IHE Encounter Template Text not used by [place] Social History: Smoking Status (Most current) and [...] 15, 2023 04:18 PM VA-TOBACCO NEVER USED [place] [facility] [place] [facility] Encounter Notes: All associated encounter notes This section contains the clinical notes associated to the Encounter. 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 Educated that 3x weekly participation is required in order to remain on the L2 program. Vet acknowledged understanding and stated he will transmit a health check when he arrives home later today. Follow-up: e commerce merchandising coordinator will monitor for L2 responses. Length of call: 1 min /autumn/ BIGG SOUZA Signed: 02/21/2024 11:57 BIGG SOUZA [facility]
--- OUTSIDE RECORDS SUMMARY | 2024-06-19 21:06 | XMS_ITS ---
Author Name [facility] [place] [facility] [place] Address [address] [place] [address] Care Team Providers Care Rate Inserter Name Role Phone MARILUZ STEWART Primary Care Provider Unavail able Selected Encounter This section includes the information on record at [place] for the Encounter. Date/Time Encounter Type Encounter Description Reason Pro vider Source Mar 27, 2024 10:23 AM Outpatient Encounter TELEPHONE/MEDICINE IHE Encounter Template Text [...] 15, 2023 04:18 PM VA-TOBACCO NEVER USED [place] [facility] [place] [facility] Encounter Notes: All associated encounter notes This section contains the clinical notes associated to the Encounter. Date/Time Encounter Note(s) Provider Source Mar 27, 2024 10:23 AM CARE COORDINATION HOME TELEHEALTH NOTE: LOCAL TITLE: L2 PROGRESS NOTE (LOW ACUITY/INTENSITY TELEHEALTH) STANDARD TITLE: CARE COORDINATION HOME TELEHEALTH NOTE DATE OF NOTE: MAR 27, 2024@10:23 ENTRY DATE: MAR 28, 2024@10:23:34 AUTHOR: SHERIE LUDWIG EXP COSIGNER: URGENCY: STATUS: COMPLETED L2 Intervention Note is actively enrolled in the L2 Telehealth Program Pt identified using two forms of ID: full name and birthdate. NO ACTION REQUESTED FROM PROVIDER IS BEING MONITORED USING THE FOLLOWING DISEASE MANAGEMENT PROTOCOL: L2 Telehealth, L2 Dmp Weight Management DATA/ASSESSMENT/WEIGHT HISTORY: 03/24/2024 10:51 304.0 Numeric 03/19/2024 10:07 304.0 Numeric 03/15/2024 11:20 303.0 Numeric 03/10/2024 17:54 304.0 Numeric 03/08/2024 21:02 304.0 Numeric 03/01/2024 18:05 304.0 Numeric 02/27/2024 11:21 304.0 Numeric 02/24/2024 16:56 304.0 Numeric 02/21/2024 12:21 304.0 Numeric 02/16/2024 22:59 304.0 Numeric 01/30/2024 18:00 305.0 Numeric 01/26/2024 15:03 302.0 Numeric 01/22/2024 19:41 302.0 Numeric 01/16/2024 19:59 304.0 Numeric 01/12/2024 16:12 303.0 Numeric 01/08/2024 17:03 303.0 Numeric 01/03/2024 12:17 301.0 Numeric 12/30/2023 13:51 301.0 Numeric 12/25/2023 11:40 301.0 Numeric 12/22/2023 16:29 301.0 Numeric 12/19/2023 10:17 302.0 Numeric 12/17/2023 19:55 302.0 Numeric 12/13/2023 22:31 302.0 Numeric 12/10/2023 20:51 302.0 Numeric 12/08/2023 11:15 301.0 Numeric 12/06/2023 11:34 301.0 Numeric 12/03/2023 21:02 301.0 Numeric 11/30/2023 22:29 301.0 Numeric 11/27/2023 10:52 297.0 Numeric 11/24/2023 21:01 301.0 Numeric 11/22/2023 23:28 301.0 Numeric 11/20/2023 10:41 298.0 Numeric 11/18/2023 10:15 302.0 Numeric 11/15/2023 11:34 302.0 Numeric INTERVENTION: Monthly data summary [place] has completed 32 sessions out of 90 sessions. Pt has gained 2 pounds since start of TeleMOVE! program on 11-15-23 BRIEF SUMMARY OF 'S SELF-REPORTED INFORMATION AND EDUCATION: Called pt. No answer. Left vm. PLAN: Will continue to monitor the 's Home TeleMOVE! transmissions and will follow-up, as appropriate. /autumn/ SHERIE LUDWIG RD,LDN STAFF DIETITIAN Signed: 03/28/2024 10:24 SHERIE LUDWIG [place] [facility]
--- OUTSIDE RECORDS SUMMARY | 2024-06-19 21:06 | XMS_ITS ---
Author Name [facility] [place] Organization [facility] [place] Address [address] [place] [address] Care Team Providers Care Senior Applications Engineer Name Role Phone MARILUZ SAHU Primary Care Provider Unavail able Selected Encounter This section includes the information on record at [place] for the Encounter. Date/Time Encounter Type Encounter Description Reason Pro vider Source Oct 15, 2023 04:18 PM Outpatient Encounter TELEPHONE PRIMARY CARE IHE Encounter Template Text not used by [place] Plan of Treatment: Future Appointments (+ 6 months) and Future Tests (+/- 45 days) The Plan of Treatment section includes future care activities for the patient from all [place] treatmentfacilities. This section includes future appointments and future orders which are active, pending or scheduled. Future Appointments This section includes appointments that were scheduled to occur 6 months from the date of the Encounter, up to a maximum of 20 appointments. The data comes from all [place] treatment facilities. Appointment Date/Time Appointment Type Appointme nt Facility Name Oct 21, 2023 01:00 PM AMBULATORY - MEDICINE [facility] Lab Results: +/- 30 days of the encounter This section includes the Chemistry and Hematology Lab Results on record with [place] for the patient. Radiology Reports and Pathology Reports are provided separately, in subsequent sections. Lab Results This section contains the Chemistry/Hematology Results that were resulted 30 days before or 30 daysafter the date of the Encounter. Date/Time Source Result Type Result - Unit Interpretation Reference Range Comment Oct 21, 2023 02:50 PM [facility] HEPATITIS A ANTIBODY (IGG) Specimen Type: SERUM Comment: Hep A IgG: A 'Non-reactive ' result indicates no anti-HAV IgG was detected. Ordering Provider: ARY SAHU Report Released Date/Time: Oct 21, 2023 02:15 PM Reporting Lab: [address] [address] Performing Lab: [facility] [address] [facility] [address] HEPATITIS A ANTIBODY (IGG) Non Reactive Non Reactive Oct 21, 2023 02:50 PM [facility] HEPATITIS B SURFACE ANTIBODY (HBsAb)-WH Specimen Type: SERUM No comment entered. Ordering Provider: ARY SAHU Report Released Date/Time: Oct 21, 2023 02:15 PM Reporting Lab: [address] [address] Performing Lab: [facility] [address] [facility] [address] HBsAb Non Reactive Non Reactive Oct 21, 2023 02:50 PM [facility] URINALYSIS Specimen Type: URINE Comment: If Glucose = >500 and Ketones are positive, please alert the Physician. Ordering Provider: ARY SAHU Report Released Date/Time: Oct 21, 2023 02:15 PM Reporting Lab: [address] [address] Performing Lab: [address] [address] UA COLOR Yellow Yellow UA APPEARANCE Clear Clear UA GLUCOSE NEGATIVE mg/dL Negative UA KETONES NEGATIVE mg/dL Negative UA BLOOD NEGATIVE mg/dL Negative UA PROTEIN 20 mg/dL Negative UA NITRITE NEGATIVE mg/dL Negative UA BILIRUBIN NEGATIVE mg/dL Negative UA SPECIFIC GRAVITY 1.024 H 1.016-1.022 UA pH 6.0 5.0-9.0 UA UROBILINOGEN <2.0 mg/dL <2.0 UA LEUKOCYTE NEGATIVE Negative Oct 21, 2023 02:50 PM [facility] MICROALBUMIN CREATININE RATIO PANEL Specimen Type: URINE No comment entered. Ordering Provider: ARY SAHU Report Released Date/Time: Oct 21, 2023 02:15 PM Reporting Lab: [facility] [address] [facility] [address] Performing Lab: [address] [address] MICROALBUMIN/ CREATININE RATIO 6.2 mg/g 0-29.9 MICROALBUMIN, QUANTITATIVE 1.5 mg/dL RR UNAVAIL CREATININE URINE 240.98 mg/dL Oct 21, 2023 02:50 PM [facility] URIC ACID Specimen Type: SERUM No comment entered. Ordering Provider: ARY SAHU Report Released Date/Time: Oct 21, 2023 02:15 PM Reporting Lab: [address] [address] Performing Lab: [address] [address] URIC ACID 5.4 mg/dL 3.5-7.2 Oct 21, 2023 02:50 PM [facility] CBC AND DIFF (AUTO) Specimen Type: BLOOD No comment entered. Ordering Provider: ARY SAHU Report Released Date/Time: Oct 21, 2023 02:23 PM Reporting Lab: [address] [address] Performing Lab: [address] [address] WBC 5.99 10*3/uL 4.50-11.00 RBC 4.47 10*6/uL 4.23-5.66 HGB 14.0 g/dL 12.8-17 HCT 40.0 39.2-50.4 MCV 89.5 fL 82-99 MCHC 35.0 g/dL 30.8-35.1 PLT 211 10*3/uL 140-360 RDW-CV 12.3 12.0-16.0 [place], Abs 0.38 10*3/uL 0.30-1.10 MCH 31.3 pg 26.2-32.6 Neut % 72.5 43.7-75.8 Lymph % 17.5 14.0-42.3 [place] % 6.3 5.1-13.7 Eos % 2.7 0.4-6.8 Baso % 0.8 0.1-2.0 Neut, Abs 4.34 10*3/uL 2.20-7.60 Lymph, Abs 1.05 10*3/uL 1.00-3.20 Eos, Abs 0.16 10*3/uL 0.03-0.44 Baso, Abs 0.05 10*3/uL 0.01-0.13 Immature Gran % 0.2 0.0-0.7 Immature Gran, Abs 0.01 10*3/uL 0.00-0.06 Oct 21, 2023 02:50 PM [facility] TSH Specimen Type: SERUM No comment entered. Ordering Provider: ARY SAHU Report Released Date/Time: Oct 21, 2023 02:15 PM Reporting Lab: [address] [address] Performing Lab: [address] [address] TSH 1.46 u[IU]/mL 0.35-5.00 Oct 21, 2023 02:50 PM [facility] HIV 1&2 Ag/Ab SCREEN Specimen Type: SERUM No comment entered. Ordering Provider: ARY SAHU Report Released Date/Time: Oct 21, 2023 02:15 PM Reporting Lab: [address] [address] Performing Lab: [address] [address] HIV 1&2 Ag/Ab SCREEN NON-REACTIVE Nonreactive Oct 21, 2023 02:50 PM [facility] HEPATITIS C ANTIBODY (HCV)-ARC Specimen Type: SERUM Comment: Hep C Ab: No HCV antibody detected. If recent infection is suspected or other evidence suggests HCV infection, consider HCV nucleic acid testing Ordering Provider: ARY SAHU Report Released Date/Time: Oct 21, 2023 02:15 PM Reporting Lab: [address] [address] Performing Lab: [address] [address] HEPATITIS C ANTIBODY NON-REACTIVE NON-REACTIVE Oct 21, 2023 02:50 PM [facility] BASIC METABOLIC PANEL (fasting) Specimen Type: SERUM No comment entered. Ordering Provider: ARY SAHU Report Released Date/Time: Oct 21, 2023 02:15 PM Reporting Lab: [address] [address] Performing Lab: [address] [address] UREA NITROGEN 28 mg/dL H 7-25 GLUCOSE 147 mg/dL H 65-100 SODIUM 139 mmol/L 135-145 POTASSIUM 4.4 mmol/L 3.5-5.0 CHLORIDE 103 mmol/L 100-110 CO2 27 meq/L 20-30 CREATININE, Serum 1.74 mg/dL H 0.50-1.40 eGFR(CKD-EPI 2020) 45 mL/min L >60 Oct 21, 2023 02:50 PM [facility] LIVER FUNCTION Specimen Type: SERUM No comment entered. Ordering Provider: ARY SAHU Report Released Date/Time: Oct 21, 2023 02:15 PM Reporting Lab: [address] [address] Performing Lab: [address] [address] PROTEIN,TOTAL 6.7 g/dL 6.0-8.3 ALBUMIN 4.1 g/dL 3.5-5.0 ALKALINE PHOSPHATASE 84 U/L 40-150 AST 19 U/L 5-34 ALT 28 U/L BILIRUBIN, TOTAL 0.6 mg/dL 0.2-1.2 Oct 21, 2023 02:50 PM [facility] LIPID PANEL FASTING Specimen Type: SERUM No comment entered. Ordering Provider: ARY SAHU Report Released Date/Time: Oct 21, 2023 02:15 PM Reporting Lab: [facility] [address] [facility] [address] Performing Lab: [address] [address] CHOLESTEROL 84 mg/dL TRIGLYCERIDE 87 mg/dL 0-150 LDL calculated 30 mg/dL 0-129 CHOL/HDL 2.3 HDL CHOLESTEROL 37 mg/dL L 40-60 Oct 21, 2023 02:50 PM [facility] HEMOGLOBIN A1C PANEL Specimen Type: BLOOD Comment: Values obtained from A1C measurements can vary. For atypical A1C assays, a reported value of 7.0 could actually be between 6.72 and 7.28 if measured by a reference method. A reported value of 9.0 could actually be between 8.73 and 9.27. Ref: http://www.ng sp.org/CAPdat a.asp Ordering Provider: ARY SAHU Report Released Date/Time: Oct 21, 2023 02:15 PM Reporting Lab: [address] [address] Performing Lab: [address] [address] HEMOGLOBIN A1C 6.1 H 4.0-5.6 Social History: Smoking Status (Most current) and Tobacco Use (All prior to encounter date) This section includes the most current, and the historical, smoking and tobacco- related health factors from the [place] facility where the Encounter took place. Current Smoking Status This section includes the most current smoking, or tobacco-related health factor, from the [place] facility where the Encounter took place. Date/Time Current Smoking Status Comment Marcus scales Oct 15, 2023 04:18 PM [place]-TOBACCO NEVER USED [facility] Encounter Notes: All associated encounter notes This section contains the clinical notes associated to the Encounter. Date/Time Encounter Note(s) Provider Source Oct 15, 2023 04:29 PM LETTERS: LOCAL TITLE: PATIENT LETTER (B) STANDARD TITLE: LETTERS DATE OF NOTE: OCT 15, 2023@16:29 ENTRY DATE: OCT 15, 2023@16:29:44 AUTHOR: KARINA GARCIAIGNER: URGENCY: STATUS: [place] [address] 0 [phone] * [phone] Ext [phone] * Date: 10/15/23 Dear [place]: Michele Thank you for choosing the Department of [facility] ([place]) [facility]. Please be a few minutes early to this appt- about 15 mins. We would like to update your demographic information. To schedule or if you would like more information regarding [place] health care benefits, please call toll free at [phone]), visit the [place] website at [email or web address] International Groups , or contact your local [place] Medical Center. Welcome to patient aligned care team (Pact Team 3) with (Scotty Sahu PA-C). Prior to meeting you at your new patient appointment we are requesting some of your past medical history so that we may provide you with the exceptional care you deserve. Please note that it is very helpful to have these documents prior to your appointment date as the more information we have the better we will be able to meet your needs: * Last History & Physical * Immunization records * Medication list * Diagnosis list * Most recent labs * Diagnostic screens (Colonoscopy, Abdominal Aortic Aneurysm screen, Mammograms, PAPS, etc.) We have scheduled the following appt with you to see your new PCP: Your appt is scheduled for (10/21/23@1300)- This appt will be about an hour long appt which will give you and your Provider a chance to get to know each other. We have noticed that you are due to receive the following Immunizations: 1. Zoster vaccine- 2 shot series 2. TD/TDAP immunization 3. Covid 19 vaccine 4. Pneumococcal PCR 15, & 20 5. Hep B Virus Vaccine- 3- shot series You may either bring your records with you to your scheduled appointment, or drop them off ahead of your appointment or you may have them faxed to ATTN: NINFA/ALEIDA/PACT- 3Jose Sahu If you have any questions, please do not hesitate to contact the Department of 's Affairs call center at Ext [phone]. Just so that you know if you're feeling sick we have sick call hours at the [facility], and the [facility]- Wed thru Wednesday 08-1530- first come first serve- walk-in basis. [facility] has sick call hours Wed-Wed- -12, and 3P-4P- first come, first serve, walk-in basis- no appt needed. You can utilize our sick call system once you have seen your Primary Care Physician for the first time. Audiology Phone number- [phone] Ext [phone] Optometry Phone Number- [phone] Ext [phone] Mental Health Clinic- [phone] Ext- [phone] Eligibility/Enrollment- [phone]- [phone], or- [phone] Veterans Rep [phone] Ext [phone] [facility] [phone] VA Transportation [phone] Ext [phone], or,[phone] [place] Act [phone] ( Call within 72hrs of being seen in an acute care setting) Sincerely. [facility] [address] [place] [address] Phone: Ext [phone] Upcoming Appointments: 10/21/23@1300- NINFA/ALEIDA/PACT-3Jose Garcia MSN Ed., BSN, RN [facility] [address] [address] [place] [address] - Ext [phone] [facility] [address] [address] [address] [place] [address] [place] [address] KARINA GARCIA [facility] Oct 15, 2023 04:20 PM LETTERS: LOCAL TITLE: PATIENT LETTER (B) STANDARD TITLE: LETTERS DATE OF NOTE: OCT 15, 2023@16:20 ENTRY DATE: OCT 15, 2023@16:20:29 AUTHOR: KARINA GARCIA EXP COSIGNER: URGENCY: STATUS: COMPLETED [facility] Outpatient [facility] [address] [facility] [address] * [phone] * Date: 10/15/23 Dear : Michele Thank you for choosing the [facility] ([place]) [facility]. The Whole Health Program aims to support you in pursuing what matters most to you, and includes services that support your values and overall wellness. This includes the following offerings: * Yoga * Acupuncture * [facility] for Acute Pain (offered weekly; drop-in or scheduled) * Individual health coaching * Helminthologist * Biofeedback for 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 and Anxiety * Guided Imagery Group * Meditation Group * Cancer Support Group * Stress Management Group ( Stress Less ) The following require no referral from a provider, and can be initiated by you at any time: * Yoga * Meditation * [facility] * Cancer Support Group * Individual Health Coaching * Stress Management Group ( Stress Less ) If interested in any of the above offerings, please reach out to the Whole Health Team at [phone]. [phone]. To schedule consult-required services, or if you would like more information regarding [place] health care benefits, please call toll free at [phone]), visit the [place] website at [email or web address] , or contact your local [place] Medical Center. If you have any questions, please do not hesitate to contact the Department of [place]'s Affairs call center. Sincerely. Dr. Archana [facility] and Integrated Excel Analyst [facility] Direct KARINA GARCIA [facility] [place] [facility] Oct 15, 2023 04:18 PM PREVENTIVE MEDICINE NURSING NOTE: LOCAL TITLE: CLINICAL REMINDERS/NURSING STANDARD TITLE: PREVENTIVE MEDICINE NURSING NOTE DATE OF NOTE: OCT 15, 2023@16:18 ENTRY DATE: OCT 15, 2023@16:18:40 AUTHOR: KARINA GARCIA EXP COSIGNER: URGENCY: STATUS: COMPLETED Advance Directive Screen MH AD: Patient does not have an Advance Directive completed and is requesting more information. The patient received education about Advance Directives and written notification of his/her rights. Vet was sent an advanced directive and was asked to fill out and bring in for PCP appt. Depression Screening: Perform PHQ-2 A PHQ-2 screen was performed. The score was 0 which is a negative screen for depression. Over the past two weeks, how often have you been bothered by the following problems? 1. Little interest or pleasure in doing things Not at all 2. Feeling down, depressed, or hopeless Not at all Suicide Screen: C-SSRS Screening [place] Suicide Severity Rating Scale (C-SSRS) screener 1. Over the past month, have you wished you were or wished you could go to sleep and not wake up? No 2. Over the past month, have you had any actual thoughts of killing yourself? No 3. Over the past month, have you been thinking about how you might do this? Response not required due to responses to other questions. 4. Over the past month, have you had these thoughts and had some intention of acting on them? Response not required due to responses to other questions. 5. Over the past month, have you started to work out or worked out the details of how to kill yourself? Response not required due to responses to other questions. 6. If yes, at any time in the past month did you intend to carry out this plan? Response not required due to responses to other questions. 7. In your lifetime, have you ever done anything, started to do anything, or prepared to do anything to end your life (for example, collected pills, obtained a gun, gave away valuables, went to the roof but didn't jump)? No 8. If YES, was this within the past 3 months? Response not required due to responses to other questions. Homelessness/Food Insecurity Screen: In the past 2 months, have you been living in stable housing that you own, rent, or stay in as part of a household? Yes - Living in stable housing. Are you worried or concerned that in the next 2 months you may NOT have stable housing that you own, rent, or stay in as part of a household? No - Not worried about housing near future The [place] reports the following: Within the past 12 months, you worried whether your food would run out before you got money to buy more. Never true Within the past 12 months, the food you bought just didn't last and you didn't have money to get more. Never true MST Screening: Patient denies experiencing sexual trauma (MST). Preferred Language: What is your, or your caregiver's preferred language for healthcare? Preferred Language: [place]i PTSD Screening: PC-PTSD-5 A PTSD screening test (PC-PTSD-5) was negative (score=0). IN THE PAST MONTH, have you ever had any experience that was so frightening, horrible or traumatic. For example: A serious accident or fire a physical or sexual assault or abuse An earthquake or flood A war Seeing someone be killed or seriously injured Having a loved one through homicide or suicide 1. Have you ever experienced this kind of event? NO 2. Had nightmares about the event(s) or thought about the event(s) when you did not want to? Response not required due to responses to other questions. 3. Tried hard not to think about the event(s) or went out of your way to avoid situations that reminded you of the event(s)? Response not required due to responses to other questions. 4. Been constantly on guard, watchful, or easily startled? Response not required due to responses to other questions. 5. [place] numb or detached from people, activities, or your surroundings? Response not required due to responses to other questions. 6. [place] guilty or unable to stop blaming yourself or others for the event(s) or any problems the event(s) may have caused? Response not required due to responses to other questions. Tobacco Use Screening: The patient has never used tobacco. Tobacco Pack Year History: Patient never smoked cigarettes or smoked FEWER THAN 100 cigarettes/lifetime Influenza Immunization: The patient has received the seasonal influenza vaccine for the current season at another location. Documented: INFLUENZA, UNSPECIFIED FORMULATION Historical Date Administered: Feb 2023 Exact date unknown Outside Location: Outside Healthcare Provider Information Source: FROM OTHER REGISTRY Comment: [facility] Alcohol Use Screen (AUDIT-C): Alcohol Screen: SCREEN FOR ALCOHOL (AUDIT-C) An alcohol screening test (AUDIT-C) was negative (score=0). 1. How often did you have a drink containing alcohol in the past year? Consider a drink to be a 12 ounce can or bottle of regular beer, 8 ounces of malt liquor, a 5 ounce glass of table wine, or a 1.5 ounce shot of liquor (like scotch, gin, or vodka). Never 2. How many drinks containing alcohol did you have on a typical day when you were drinking in the past year? Response not required due to responses to other questions. 3. How often did you have six or more drinks on one occasion in the past year? Response not required due to responses to other questions. /autumn/ KARINA GARCIA MSN Ed., BSN PERINATAL TECH NURSE Signed: 10/15/2023 20:05 KARINA GARCIA CNTL [facility]
--- OUTSIDE RECORDS SUMMARY | 2024-06-19 21:06 | XMS_ITS | Encounter Summary ---
Author Name [facility] [place] Organization [facility] [place] Address [address] [place] [address] Care Team Providers Care Dry Wall Installations Mechanic Name Role Phone MARILUZ STEWART Primary Care Provider Unavail able Selected Encounter This section includes the information on record at [place] for the Encounter. Date/Time Encounter Type Encounter Description Reason Provider Source Mar 13, 2024 03:14 PM Outpatient Encounter HT NON-VIDEO MONITORING ICD-10-CM E66.09 Other obesity due to excess calories [facility]ERIE LUDWIG [facility] Encounter Template Text not used by [place] Assessments - Encounter Diagnoses This section includes the primary and secondary diagnoses documented for the Encounter. Date/Time Primary/Secondary Diagnosis Diagnosis Name Provider Source Mar 13, 2024 03:20 PM PRIMARY Obesity, unspecified MANEKAS,SHERIE L [facility] [place] [facility] Mar 13, 2024 03:20 PM PRIMARY Other obesity due to excess calories [facility] Mar 13, 2024 03:20 PM SECONDARY Body mass index [BMI] 37.0-37.9, adult BIGG SOUZA [facility] Social History: Smoking Status (Most current) and Tobacco Use (All prior to encounter date) This section includes the most current, and the historical, smoking and tobacco- related health factors from the [place] facility where the Encounter took place. Current Smoking Status This section includes the most current smoking, or tobacco-related health factor, from the [place] facility where the Encounter took place. Date/Time Current Smoking Status Comment Facil ity Oct 15, 2023 04:18 PM VA-TOBACCO NEVER USED [facility] Encounter Notes: All associated encounter notes This section contains the clinical notes associated to the Encounter. Date/Time Encounter Note(s) Provider Source Mar 13, 2024 03:19 PM CARE COORDINATION HOME TELEHEALTH SUMMARIZATION NOTE: LOCAL TITLE: L2 MONTHLY MONITOR NOTE STANDARD TITLE: CARE COORDINATION HOME TELEHEALTH SUMMARIZATION DATE OF NOTE: MAR 13, 2024@15:19 ENTRY DATE: MAR 13, 2024@15:19:57 AUTHOR: SHERIE LUDWIG EXP COSIGNER: URGENCY: STATUS: COMPLETED SUMMARY OF EPISODE (NON-VIDEO MONTHLY MONITORING): [place] is actively enrolled in the L2 Telehealth Program and has been monitored for the past month. Data is sent from the Ponce's home to the program Manager Of Exhibitions And Collections and is reviewed for [id number] responses. Month monitored:2023 Diagnosis (if required locally):E66.09 obesity /es/ SHERIE LUDWIG RD,LDN STAFF DIETITIAN Signed: 03/13/2024 15:29 SHERIE LUDWIG [facility]
--- OUTSIDE RECORDS SUMMARY | 2024-06-19 21:06 | XMS_ITS ---
Author Name [facility] [place] [facility] [place] [facility] [place] Address [address] [place] [address] Care Team Providers Care Sheepskin Pickler Name Role Phone MARILUZ STEWART Primary Care Provider Unavail able Selected Encounter This section includes the information on record at [place] for the Encounter. Date/Time Encounter Type Encounter Description Reason Provider Source Apr 14, 2024 04:08 PM Outpatient Encounter HT NON-VIDEO MONITORING ICD-10-CM E66.09 Other obesity due to excess calories BLANK LUDWIGA He [facility] Encounter Template Text not used by [place] Assessments - Encounter Diagnoses This section includes the primary and secondary diagnoses documented for the Encounter. Date/Time Primary/Secondary Diagnosis Diagnosis Name Provider Source Apr 14, 2024 04:13 PM PRIMARY Obesity, unspecified MANEKAS,SHERIE L [facility] [place] [facility] Apr 14, 2024 04:13 PM PRIMARY Other obesity due to excess calories MANEKAS,SHERIE L [facility] [place] [facility] Apr 14, 2024 04:13 PM SECONDARY Body mass index [BMI] 38.0-38.9, adult MANEKAS,SHERIE L [facility] [place] [facility] Social History: Smoking Status (Most current) [...] 15, 2023 04:18 PM [facility]-TOBACCO NEVER USED [facility] Encounter Notes: All associated encounter notes This section contains the clinical notes associated to the Encounter. Date/Time Encounter Note(s) Provider Source Apr 14, 2024 04:12 PM CARE COORDINATION HOME TELEHEALTH SUMMARIZATION NOTE: LOCAL TITLE: L2 MONTHLY MONITOR NOTE STANDARD TITLE: CARE COORDINATION HOME TELEHEALTH SUMMARIZATION DATE OF NOTE: APR 14, 2024@16:12 ENTRY DATE: APR 14, 2024@16:12:34 AUTHOR: SHERIE LUDWIG EXP COSIGNER: URGENCY: STATUS: COMPLETED SUMMARY OF EPISODE (NON-VIDEO MONTHLY MONITORING): is actively enrolled in the L2 Telehealth Program and has been monitored for the past month. Data is sent from the [place] to the program Environmental Services Coordinator and is reviewed for [id number] responses. Month monitored:MARCH 2024 Diagnosis:E66.09 obesity /es/ SHERIE LUDWIG RD,LDN STAFF DIETITIAN Signed: 04/14/2024 16:22 SHERIE LUDWIG [facility]
--- OUTSIDE RECORDS SUMMARY | 2024-06-19 21:06 | XMS_ITS ---
Author Name [facility] [place] [place] [facility] [place] Address [address] [place] [address] Care Team Providers Care Health And Safety Specialist Name Role Phone MARILUZ NORRIS Primary Care Provider Unavail able Selected Encounter This section includes the information on record at [place] for the Encounter. Date/Time Encounter Type Encounter Description Reason Pro vider Source Oct 15, 2023 04:38 PM Outpatient Encounter TELEPHONE PRIMARY CARE IHE Encounter Template Text not used by [place] Plan of Treatment: Future Appointments (+ 6 months) and Future Tests (+/- 45 days) The Plan of Treatment section includes future care activities for the patient from all [place] treatmentfacilities. This section includes future appointments and future orders which are active, pending or scheduled. Future Appointments This section includes appointments that were scheduled to occur 6 months from the date of the Encounter, up to a maximum of 20 appointments. The data comes from all [place] treatment facilities. Appointment Date/Time Appointment Type Appointme nt Facility Name Oct 21, 2023 01:00 PM AMBULATORY - MEDICINE [facility] Lab Results: +/- 30 days of the encounter This section includes the Chemistry and Hematology Lab Results on record with [place] for the patient. Radiology Reports and Pathology Reports are provided separately, in subsequent sections. Lab Results This section contains the Chemistry/Hematology Results that were resulted 30 days before or 30 daysafter the date of the Encounter. Date/Time Source Result Type Result - Unit Interpretation Reference Range Comment Oct 21, 2023 02:50 PM [facility] HEPATITIS A ANTIBODY (IGG) Specimen Type: SERUM Comment: Hep A IgG: A 'Non-reactive ' result indicates no anti-HAV IgG was detected. Ordering Provider: ARY NORRIS Report Released Date/Time: Oct 21, 2023 02:15 PM Reporting Lab: [address] [address] Performing Lab: [facility] [address] [facility] [address] HEPATITIS A ANTIBODY (IGG) Non Reactive Non Reactive Oct 21, 2023 02:50 PM [facility] HEPATITIS B SURFACE ANTIBODY (HBsAb)-WH Specimen Type: SERUM No comment entered. Ordering Provider: ARY NORRIS Report Released Date/Time: Oct 21, 2023 02:15 PM Reporting Lab: [address] [address] Performing Lab: [facility] [address] [facility] [address] HBsAb Non Reactive Non Reactive Oct 21, 2023 02:50 PM [facility] URINALYSIS Specimen Type: URINE Comment: If Glucose = >500 and Ketones are positive, please alert the Physician. Ordering Provider: ARY NORRIS Report Released Date/Time: Oct 21, 2023 02:15 PM Reporting Lab: [address] [address] Performing Lab: [address] [address] UA COLOR Yellow Yellow UA APPEARANCE Clear Clear UA GLUCOSE NEGATIVE mg/dL Negative UA KETONES NEGATIVE mg/dL Negative UA BLOOD NEGATIVE mg/dL Negative UA PROTEIN 20 mg/dL Negative UA NITRITE NEGATIVE mg/dL Negative UA BILIRUBIN NEGATIVE mg/dL Negative UA SPECIFIC GRAVITY 1.024 H 1.016-1.022 UA pH 6.0 5.0-9.0 UA UROBILINOGEN <2.0 mg/dL <2.0 UA LEUKOCYTE NEGATIVE Negative Oct 21, 2023 02:50 PM [facility] MICROALBUMIN CREATININE RATIO PANEL Specimen Type: URINE No comment entered. Ordering Provider: ARY NORRIS Report Released Date/Time: Oct 21, 2023 02:15 PM Reporting Lab: [facility] [address] [facility] [address] Performing Lab: [address] [address] MICROALBUMIN/ CREATININE RATIO 6.2 mg/g 0-29.9 MICROALBUMIN, QUANTITATIVE 1.5 mg/dL RR UNAVAIL CREATININE URINE 240.98 mg/dL Oct 21, 2023 02:50 PM [facility] URIC ACID Specimen Type: SERUM No comment entered. Ordering Provider: ARY NORRIS Report Released Date/Time: Oct 21, 2023 02:15 PM Reporting Lab: [address] [address] Performing Lab: [address] [address] URIC ACID 5.4 mg/dL 3.5-7.2 Oct 21, 2023 02:50 PM [facility] CBC AND DIFF (AUTO) Specimen Type: BLOOD No comment entered. Ordering Provider: ARY NORRIS Report Released Date/Time: Oct 21, 2023 02:23 PM Reporting Lab: [address] [address] Performing Lab: [address] [address] WBC 5.99 10*3/uL 4.50-11.00 RBC 4.47 10*6/uL 4.23-5.66 HGB 14.0 g/dL 12.8-17 HCT 40.0 39.2-50.4 MCV 89.5 fL 82-99 MCHC 35.0 g/dL 30.8-35.1 PLT 211 10*3/uL 140-360 RDW-CV 12.3 12.0-16.0 [place], Abs 0.38 10*3/uL 0.30-1.10 MCH 31.3 pg 26.2-32.6 Neut % 72.5 43.7-75.8 Lymph % 17.5 14.0-42.3 [place] % 6.3 5.1-13.7 Eos % 2.7 0.4-6.8 Baso % 0.8 0.1-2.0 Neut, Abs 4.34 10*3/uL 2.20-7.60 Lymph, Abs 1.05 10*3/uL 1.00-3.20 Eos, Abs 0.16 10*3/uL 0.03-0.44 Baso, Abs 0.05 10*3/uL 0.01-0.13 Immature Gran % 0.2 0.0-0.7 Immature Gran, Abs 0.01 10*3/uL 0.00-0.06 Oct 21, 2023 02:50 PM [facility] TSH Specimen Type: SERUM No comment entered. Ordering Provider: ARY NORRIS Report Released Date/Time: Oct 21, 2023 02:15 PM Reporting Lab: [address] [address] Performing Lab: [address] [address] TSH 1.46 u[IU]/mL 0.35-5.00 Oct 21, 2023 02:50 PM [facility] HIV 1&2 Ag/Ab SCREEN Specimen Type: SERUM No comment entered. Ordering Provider: ARY NORRIS Report Released Date/Time: Oct 21, 2023 02:15 PM Reporting Lab: [address] [address] Performing Lab: [address] [address] HIV 1&2 Ag/Ab SCREEN NON-REACTIVE Nonreactive Oct 21, 2023 02:50 PM [facility] HEPATITIS C ANTIBODY (HCV)-ARC Specimen Type: SERUM Comment: Hep C Ab: No HCV antibody detected. If recent infection is suspected or other evidence suggests HCV infection, consider HCV nucleic acid testing Ordering Provider: ARY NORRIS Report Released Date/Time: Oct 21, 2023 02:15 PM Reporting Lab: [address] [address] Performing Lab: [address] [address] HEPATITIS C ANTIBODY NON-REACTIVE NON-REACTIVE Oct 21, 2023 02:50 PM [facility] BASIC METABOLIC PANEL (fasting) Specimen Type: SERUM No comment entered. Ordering Provider: ARY NORRIS Report Released Date/Time: Oct 21, 2023 02:15 PM Reporting Lab: [address] [address] Performing Lab: [address] [address] UREA NITROGEN 28 mg/dL H 7-25 GLUCOSE 147 mg/dL H 65-100 SODIUM 139 mmol/L 135-145 POTASSIUM 4.4 mmol/L 3.5-5.0 CHLORIDE 103 mmol/L 100-110 CO2 27 meq/L 20-30 CREATININE, Serum 1.74 mg/dL H 0.50-1.40 eGFR(CKD-EPI 2020) 45 mL/min L >60 Oct 21, 2023 02:50 PM [facility] LIVER FUNCTION Specimen Type: SERUM No comment entered. Ordering Provider: ARY NORRIS Report Released Date/Time: Oct 21, 2023 02:15 PM Reporting Lab: [address] [address] Performing Lab: [address] [address] PROTEIN,TOTAL 6.7 g/dL 6.0-8.3 ALBUMIN 4.1 g/dL 3.5-5.0 ALKALINE PHOSPHATASE 84 U/L 40-150 AST 19 U/L 5-34 ALT 28 U/L BILIRUBIN, TOTAL 0.6 mg/dL 0.2-1.2 Oct 21, 2023 02:50 PM [facility] LIPID PANEL FASTING Specimen Type: SERUM No comment entered. Ordering Provider: ARY NORRIS Report Released Date/Time: Oct 21, 2023 02:15 PM Reporting Lab: [facility] [address] [facility] [address] Performing Lab: [address] [address] CHOLESTEROL 84 mg/dL TRIGLYCERIDE 87 mg/dL 0-150 LDL calculated 30 mg/dL 0-129 CHOL/HDL 2.3 HDL CHOLESTEROL 37 mg/dL L 40-60 Oct 21, 2023 02:50 PM [facility] HEMOGLOBIN A1C PANEL Specimen Type: BLOOD Comment: [...] Oct 21, 2023 02:15 PM Reporting Lab: [address] [address] Performing Lab: [address] [address] HEMOGLOBIN A1C 6.1 H 4.0-5.6 Social History: Smoking Status (Most current) and Tobacco Use (All prior to encounter date) This section includes the most current, and the historical, smoking and tobacco- related health factors from the [place] facility where the Encounter took place. Current Smoking Status This section includes the most current smoking, or tobacco-related health factor, from the [place] facility where the Encounter took place. Date/Time Current Smoking Status Comment Marcus scales Oct 15, 2023 04:18 PM [facility]-TO[facility]ACCO NEVER USED [facility] Encounter Notes: All associated encounter notes This section contains the clinical notes associated to the Encounter. Date/Time Encounter Note(s) Provider Source Oct 15, 2023 04:39 PM MEDICATION MGT NOTE: LOCAL TITLE: MEDICATION RECONCILIATION STANDARD TITLE: MEDICATION MGT NOTE DATE OF NOTE: OCT 15, 2023@16:39 ENTRY DATE: OCT 15, 2023@16:40:21 AUTHOR: KARINA GARCIA COSIGNER: URGENCY: STATUS: COMPLETED Vet was given an appt with: Scotty Norris PA-C on 10/21/23@1300 F: Medication reconciliation D: Vet is on the following Meds: 1. Penicillin V potassium 250 mg tablet TAKE 1 TABLET BY MOUTH TWICE A DAY 01/30/2021 completed 6. Atorvastatin 20 mg tablet TAKE 1 TABLET BY MOUTH EVERY DAY 7. FreeStyle Lancets 28 gauge USE 3 TIMES A DAY NEEDED active 10. Aspirin 81 mg tablet,delayed release TAKE 1 TABLET BY MOUTH EVERY DAY active 11. Sildenafil 100 mg tablet TAKE 1 TABLET NEEDED (30 DAYS) 12. Spironolactone/HCTZ 25mg/25mg tablet TAKE 1 TABLET BY MOUTH EVERY DAY active 15. Amlodipine 10 mg tablet TAKE 1 TABLET BY MOUTH EVERY DAY active 18. Allopurinol 300 mg tablet TAKE 1 TABLET BY MOUTH EVERY DAY active 20. losartan 100 mg tablet TAKE 1 TABLET BY MOUTH EVERY DAY active 24. Aripiprazole 10 mg tablet TAKE 1 TABLET BY MOUTH EVERY DAY active 25. Bupropion HCl XL 300 mg 24 hr tablet, extended release TAKE 1 TABLET BY MOUTH EVERY DAY DIRECTED active 27. duloxetine 60 mg capsule,delayed release TAKE 1 CAPSULE BY MOUTH EVERY DAY active 29. FreeStyle Lite Meter kit USE DIRECTED active 30. Lantus Solostar U-100 Insulin 100 unit/mL (3 mL) subcutaneous pen INJECT 5O UNITS SUBCUTANEOUS EVERY DAY active 31. Trazadone 100mg by mouth QHS == Vet has the following adverse affect, or medication allergies: 1. He has No Known Drug allergies Vet see's the following community Providers: 1. [facility] Jett Bedolla, DPM [address] [facility] [address] [place] [id number] 2. Gabby Kelly MD PCP - General [phone] [place] [id number] 3. Abilio Garsia MD Nephrology, Nephrology [phone] [address] [facility] [address] [facility] [address] Tricia Wiseman- Infectious Disease [address] [facility], [address], [place] [address]; phone: [phone]; fax: [phone]. 5. Dr. Ye Najera- Back Pain- Pain Management [address] [place] [address] [address], [place] [address] ======= Here is a list of vet's Medical Hx: 1. Type 2 Diabetes Mellitus 2. Toenail fungus 3. Gout 4. Depression 5. Diabetic Neuropathy 6. Sleep Apnea- CPAP machine used 7. 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 8. Cellulitis- Lower Leftleg 9. Fatty Liver 10. Spondylosis Lumbar spine /autumn/ KARINA GARCIA MSN Ed., BSN ADMINISTRATIVE SERVICES DIRECTOR NURSE Signed: 10/15/2023 20:05 Receipt Acknowledged By: 10/18/2023 07:43 /es/ GEGE MICHAEL, MCKENNA REGISTERED NURSE 10/18/2023 10:21 /es/ MARIANNE GARCIA LPN 10/16/2023 17:49 /es/ Mariluz Norris PA-C STAFF PHYSICIAN PYTHON ARCHITECT KARINA GARCIA [facility]
--- OUTSIDE RECORDS SUMMARY | 2024-06-19 21:06 | XMS_ITS ---
Author Name [facility] [place] Address [address] [place] [id number] Care Team Providers Care Calciner Operator Helper Name Role Phone MARILUZ STEWART Primary Care Provider Unavail able Selected Encounter This section includes the information on record at [place] for the Encounter. Date/Time Encounter Type Encounter Description Reason Pro vider Source Oct 12, 2023 01:17 PM Outpatient Encounter TELEPHONE TRIAGE IHE Encounter Template Text not used by [place] Plan of Treatment: Future Appointments (+ 6 months) and Future Tests (+/- 45 days) The Plan of Treatment section includes future care activities for the patient from all [place] treatmentfacilities. This section includes future appointments and future orders which are active, pending or scheduled. Future Appointments This section includes appointments that were scheduled to occur 6 months from the date of the Encounter, up to a maximum of 20 appointments. The data comes from all [place] treatment facilities. Appointment Date/Time Appointment Type Appointme nt Facility Name Oct 21, 2023 01:00 PM AMBULATORY - MEDICINE [facility] Lab Results: +/- 30 days of the encounter This section includes the Chemistry and Hematology Lab Results on record with [place] for the patient. Radiology Reports and Pathology Reports are provided separately, in subsequent sections. Lab Results This section contains the Chemistry/Hematology Results that were resulted 30 days before or 30 daysafter the date of the Encounter. Date/Time Source Result Type Result - Unit Interpretation Reference Range Comment Oct 21, 2023 02:50 PM [facility] HEPATITIS A ANTIBODY (IGG) Specimen Type: SERUM Comment: Hep A IgG: A 'Non-reactive ' result indicates no anti-HAV IgG was detected. Ordering Provider: ARY STEWART Report Released Date/Time: Oct 21, 2023 02:15 PM Reporting Lab: [address] [address] Performing Lab: [facility] [address] [facility] [address] HEPATITIS A ANTIBODY (IGG) Non Reactive Non Reactive Oct 21, 2023 02:50 PM [facility] HEPATITIS B SURFACE ANTIBODY (HBsAb)-WH Specimen Type: SERUM No comment entered. Ordering Provider: ARY STEWART Report Released Date/Time: Oct 21, 2023 02:15 PM Reporting Lab: [address] [address] Performing Lab: [address] [address] HBsAb Non Reactive Non Reactive Oct 21, 2023 02:50 PM [facility] URINALYSIS Specimen Type: URINE Comment: If Glucose = >500 and Ketones are positive, please alert the Physician. Ordering Provider: ARY STEWART Report Released Date/Time: Oct 21, 2023 02:15 PM Reporting Lab: [address] [address] Performing Lab: [address] [address] UA COLOR Yellow Yellow UA APPEARANCE Clear Clear UA GLUCOSE NEGATIVE mg/dL Negative UA KETONES NEGATIVE mg/dL Negative UA BLOOD NEGATIVE mg/dL Negative UA PROTEIN 20 mg/dL Negative UA NITRITE NEGATIVE mg/dL Negative UA BILIRUBIN NEGATIVE mg/dL Negative UA SPECIFIC GRAVITY 1.024 H 1.016-1.022 UA pH 6.0 5.0-9.0 UA UROBILINOGEN <2.0 mg/dL <2.0 UA LEUKOCYTE NEGATIVE Negative Oct 21, 2023 02:50 PM [facility] MICROALBUMIN CREATININE RATIO PANEL Specimen Type: URINE No comment entered. Ordering Provider: ARY STEWART Report Released Date/Time: Oct 21, 2023 02:15 PM Reporting Lab: [address] [address] Performing Lab: [address] [address] MICROALBUMIN/ CREATININE RATIO 6.2 mg/g 0-29.9 MICROALBUMIN, QUANTITATIVE 1.5 mg/dL RR UNAVAIL CREATININE URINE 240.98 mg/dL Oct 21, 2023 02:50 PM [facility] URIC ACID Specimen Type: SERUM No comment entered. Ordering Provider: ARY STEWART Report Released Date/Time: Oct 21, 2023 02:15 PM Reporting Lab: [address] [address] Performing Lab: [address] [address] URIC ACID 5.4 mg/dL 3.5-7.2 Oct 21, 2023 02:50 PM [facility] CBC AND DIFF (AUTO) Specimen Type: BLOOD No comment entered. Ordering Provider: ARY STEWART Report Released Date/Time: Oct 21, 2023 02:23 PM Reporting Lab: [address] [address] Performing Lab: [address] [address] WBC 5.99 10*3/uL 4.50-11.00 RBC 4.47 10*6/uL 4.23-5.66 HGB 14.0 g/dL 12.8-17 HCT 40.0 39.2-50.4 MCV 89.5 fL 82-99 MCHC 35.0 g/dL 30.8-35.1 PLT 211 10*3/uL 140-360 RDW-CV 12.3 12.0-16.0 [place], Abs 0.38 10*3/uL 0.30-1.10 MCH 31.3 pg 26.2-32.6 Neut % 72.5 43.7-75.8 Lymph % 17.5 14.0-42.3 [place] % 6.3 5.1-13.7 Eos % 2.7 0.4-6.8 Baso % 0.8 0.1-2.0 Neut, Abs 4.34 10*3/uL 2.20-7.60 Lymph, Abs 1.05 10*3/uL 1.00-3.20 Eos, Abs 0.16 10*3/uL 0.03-0.44 Baso, Abs 0.05 10*3/uL 0.01-0.13 Immature Gran % 0.2 0.0-0.7 Immature Gran, Abs 0.01 10*3/uL 0.00-0.06 Oct 21, 2023 02:50 PM [facility] TSH Specimen Type: SERUM No comment entered. Ordering Provider: ARY STEWART Report Released Date/Time: Oct 21, 2023 02:15 PM Reporting Lab: [address] [address] Performing Lab: [address] [address] TSH 1.46 u[IU]/mL 0.35-5.00 Oct 21, 2023 02:50 PM [facility] HIV 1&2 Ag/Ab SCREEN Specimen Type: SERUM No comment entered. Ordering Provider: ARY STEWART Report Released Date/Time: Oct 21, 2023 02:15 PM Reporting Lab: [address] [address] Performing Lab: [address] [address] HIV 1&2 Ag/Ab SCREEN NON-REACTIVE Nonreactive Oct 21, 2023 02:50 PM [facility] HEPATITIS C ANTIBODY (HCV)-ARC Specimen Type: SERUM Comment: Hep C Ab: No HCV antibody detected. If recent infection is suspected or other evidence suggests HCV infection, consider HCV nucleic acid testing Ordering Provider: ARY STEWART Report Released Date/Time: Oct 21, 2023 02:15 PM Reporting Lab: [facility] [address] [facility] [address] Performing Lab: [address] [address] HEPATITIS C ANTIBODY NON-REACTIVE NON-REACTIVE Oct 21, 2023 02:50 PM [facility] BASIC METABOLIC PANEL (fasting) Specimen Type: SERUM No comment entered. Ordering Provider: ARY STEWART Report Released Date/Time: Oct 21, 2023 02:15 PM Reporting Lab: [address] [address] Performing Lab: [address] [address] UREA NITROGEN 28 mg/dL H 7-25 GLUCOSE 147 mg/dL H 65-100 SODIUM 139 mmol/L 135-145 POTASSIUM 4.4 mmol/L 3.5-5.0 CHLORIDE 103 mmol/L 100-110 CO2 27 meq/L 20-30 CREATININE, Serum 1.74 mg/dL H 0.50-1.40 eGFR(CKD-EPI 2020) 45 mL/min L >60 Oct 21, 2023 02:50 PM [facility] LIVER FUNCTION Specimen Type: SERUM No comment entered. Ordering Provider: ARY STEWART Report Released Date/Time: Oct 21, 2023 02:15 PM Reporting Lab: [address] [address] Performing Lab: [address] [address] PROTEIN,TOTAL 6.7 g/dL 6.0-8.3 ALBUMIN 4.1 g/dL 3.5-5.0 ALKALINE PHOSPHATASE 84 U/L 40-150 AST 19 U/L 5-34 ALT 28 U/L BILIRUBIN, TOTAL 0.6 mg/dL 0.2-1.2 Oct 21, 2023 02:50 PM [facility] LIPID PANEL FASTING Specimen Type: SERUM No comment entered. Ordering Provider: ARY STEWART Report Released Date/Time: Oct 21, 2023 02:15 PM Reporting Lab: [facility] [address] [facility] [address] Performing Lab: [facility] [address] [facility] [address] CHOLESTEROL 84 mg/dL TRIGLYCERIDE 87 mg/dL 0-150 LDL calculated 30 mg/dL 0-129 CHOL/HDL 2.3 HDL CHOLESTEROL 37 mg/dL L 40-60 Oct 21, 2023 02:50 PM [facility] HEMOGLOBIN A1C PANEL Specimen Type: BLOOD Comment: [...] Oct 21, 2023 02:15 PM Reporting Lab: [address] [address] Performing Lab: [address] [address] HEMOGLOBIN A1C 6.1 H 4.0-5.6 Encounter Notes: All associated encounter notes This section contains the clinical notes associated to the Encounter. Date/Time Encounter Note(s) Provider Source Oct 15, 2023 03:50 PM ADDENDUM: LOCAL TITLE: Addendum STANDARD TITLE: ADDENDUM DATE OF NOTE: OCT 15, 2023@15:50:29 ENTRY DATE: OCT 15, 2023@15:50:30 AUTHOR: FLYNN DURAN EXP COSIGNER: URGENCY: STATUS: COMPLETED Please call to [facility] no pact 3 /autumn/ FLYNN DURAN AIR CONDITIONING UNIT ASSEMBLER VICK Signed: 10/15/2023 15:50 Receipt Acknowledged By: 12/07/2023 11:47 /es/ KARINA GARCIA MSN Ed., BSN JOURNAL BOX INSPECTOR NURSE --- Original Document --- 10/12/23 CCC: CLINICAL TRIAGE: Patient Demographics Patient Name: MICHELE PATEL Patient Primary Address: [address] [place] [address] [place] [address] Patient : 1965 Patient Age: 58 Caller/Recipient Relation to Patient: Self Emergency Contact: JACOBY PATLE Triage Summary Conducted triage/discussed symptoms Utilized the Triage Tool: Yes Chief Complaint: Back Pain System WHEN: Within 2 Weeks Nurse's Recommendation / WHEN: Within 2 Weeks System WHERE: Clinic Nurse's Recommendation / WHERE: Clinic/[facility] Patient Disposition Patient/Caregiver agrees to plan of care: Yes Nursing Plan and Disposition Other course(s) of action Alternative course of action Alternative courses of action: ALERTING HSS TO ESTABLISH CARE IN [place] Nurse Summary Nurse Summary: SITUATION: C/O MID BACK PAIN X APPROXIMATELY 1 MONTH S/P CHIROPRACTIC ADJUSTMENT. AT PRESENT, HE HAS NO PAIN BUT AT TIMES CAN HAVE MILD TO SEVERE PAIN. STATES THE MOST PAINFUL POSITION IS TRYING TO GET UP FROM A SITTING OR LAYING POSITION. TWISTING IS PAINFUL WELL. ALSO STATES MOBILITY IS LIMITED DUE TO BOUTS OF PAIN. *See [facility] details below for additional +/- signs & symptoms. HAS NO PACT, WANTS TO ESTABLISH CARE IN [place]. TRIAGE OUTCOME IS 2 WEEKS. WILL ALERT HSS TO ASSIGN PCP AND SCHEDULE PCP APPOINTMENT. Clinical Contact Center Codes Clinic/Location: V1 CWM PHONE CCC RN TXCC Triage Complete Triage Date: 10/12/2023 12:11 PM Triage Note: Phone Triage 12 Oct 2023 17:04:14 +0000 [facility] Demographics 58 y/o Male Results CC: Back Pain Software suggested: Within 2 Weeks Software suggested follow-up location: Clinic, consider virtual care Values and Measures Duration of CC: 1 Months Positive Responses HPI: back pain, moderate to severe, duration longer than 2 days MEDS: cholesterol-lowering medication MEDS: insulin PMH: diabetes PMH: high cholesterol PMH: kidney stone VS: temperature not taken Negative Responses Denies: HPI: abdominal pain, with back pain Denies: HPI: arm, shoulder or jaw pain, with back pain Denies: HPI: back injury, recent Denies: HPI: back pain, duration longer than 1 month Denies: HPI: back pain, lower back Denies: HPI: back pain, severe Denies: HPI: back pain, worsening Denies: HPI: cancer Denies: HPI: chest pain, with back pain Denies: HPI: diaphoresis, with back pain, duration longer than 10 minutes Denies: HPI: difficulty walking Denies: HPI: dyspnea, with back pain Denies: HPI: dysuria Denies: HPI: hematuria Denies: HPI: increased urinary frequency Denies: HPI: leg numbness, unilateral Denies: HPI: leg weakness, bilateral, new Denies: HPI: leg weakness, unilateral Denies: HPI: lightheadedness with back pain, duration longer than 10 minutes Denies: HPI: muscle tenderness, generalized Denies: HPI: myalgias, generalized Denies: HPI: numbness, groin or legs, new Denies: HPI: pain, radiation down leg Denies: HPI: pain, similar to past kidney stone Denies: HPI: skin erythema, back, worsening Denies: HPI: skin lump, swollen, painful, over the back Denies: HPI: skin swelling, back, worsening Denies: HPI: syncope Denies: HPI: urinary incontinence Denies: HPI: urinary urgency, constant Denies: HPI: vomiting Denies: HPI: weakness, duration longer than 10 minutes, with the back pain Denies: PMH: aortic aneurysm Denies: PMH: heart disease Denies: PMH: Marfan syndrome Denies: PMH: UTI /es/ GEOVANNA LEA [id number] Signed: 10/12/2023 13:17 Receipt Acknowledged By: 10/12/2023 16:23 /es/ AMINTA DE JESUS MSA AIR CONDITIONING UNIT ASSEMBLER, [facility] 10/15/2023 15:49 /es/ FLYNN DURAN AIR CONDITIONING UNIT ASSEMBLER [facility] 10/12/2023 15:09 /es/ MAMIE KRUEGER AIR CONDITIONING UNIT ASSEMBLER [employer] 10/15/2023 ADDENDUM STATUS: COMPLETED F: Telephone call D: Vet was called and was asked to return call when available to set up an appt with a New Provider. /es/ KARINA GARCIA MSN Ed., BSN JOURNAL BOX INSPECTOR NURSE Signed: 10/15/2023 17:10 FLYNN DURAN [place] [facility] Oct 12, 2023 01:17 PM RN PROGRESS NOTE: LOCAL TITLE: CCC: CLINICAL TRIAGE STANDARD TITLE: RN PROGRESS NOTE DATE OF NOTE: OCT 12, 2023@13:17:47 ENTRY DATE: OCT 12, 2023@13:17:47 AUTHOR: GEOVANNA LEA EXP COSIGNER: URGENCY: STATUS: COMPLETED CCC: CLINICAL TRIAGE Has ADDENDA Patient Demographics Patient Name: MICHELE PATEL Patient Primary [address]: [address] [place] [address] [place] [address] Patient : 1965 Patient Age: 58 Caller/Recipient Relation to Patient: Self Emergency Contact: JACOBY PATEL Triage Summary Conducted triage/discussed symptoms Utilized the Triage Tool: Yes Chief Complaint: Back Pain System WHEN: Within 2 Weeks Nurse's Recommendation / WHEN: Within 2 Weeks System WHERE: Clinic Nurse's Recommendation / WHERE: Clinic/[facility] Patient Disposition Patient/Caregiver agrees to plan of care: Yes Nursing Plan and Disposition Other course(s) of action Alternative course of action Alternative courses of action: ALERTING HSS TO ESTABLISH CARE IN [place] Nurse Summary Nurse Summary: SITUATION: C/O MID BACK PAIN X APPROXIMATELY 1 MONTH S/P CHIROPRACTIC ADJUSTMENT. AT PRESENT, HE HAS NO PAIN BUT AT TIMES CAN HAVE MILD TO SEVERE PAIN. STATES THE MOST PAINFUL POSITION IS TRYING TO GET UP FROM A SITTING OR LAYING POSITION. TWISTING IS PAINFUL WELL. ALSO STATES MOBILITY IS LIMITED DUE TO BOUTS OF PAIN. *See [facility] details below for additional +/- signs & symptoms. HAS NO PACT, WANTS TO ESTABLISH CARE IN [place]. TRIAGE OUTCOME IS 2 WEEKS. WILL ALERT HSS TO ASSIGN PCP AND SCHEDULE PCP APPOINTMENT. Clinical Contact Center Codes Clinic/Location: V1 CWM PHONE CCC RN [place] Triage Complete Triage Date: 10/12/2023 12:11 PM Triage Note: Phone Triage 12 Oct 2023 17:04:14 +0000 [facility] Demographics 58 y/o Male Results CC: Back Pain Software suggested: Within 2 Weeks Software suggested follow-up location: Clinic, consider virtual care Values and Measures Duration of CC: 1 Months Positive Responses HPI: back pain, moderate to severe, duration longer than 2 days MEDS: cholesterol-lowering medication MEDS: insulin PMH: diabetes PMH: high cholesterol PMH: kidney stone VS: temperature not taken Negative Responses Denies: HPI: abdominal pain, with back pain Denies: HPI: arm, shoulder or jaw pain, with back pain Denies: HPI: back injury, recent Denies: HPI: back pain, duration longer than 1 month Denies: HPI: back pain, lower back Denies: HPI: back pain, severe Denies: HPI: back pain, worsening Denies: HPI: cancer Denies: HPI: chest pain, with back pain Denies: HPI: diaphoresis, with back pain, duration longer than 10 minutes Denies: HPI: difficulty walking Denies: HPI: dyspnea, with back pain Denies: HPI: dysuria Denies: HPI: hematuria Denies: HPI: increased urinary frequency Denies: HPI: leg numbness, unilateral Denies: HPI: leg weakness, bilateral, new Denies: HPI: leg weakness, unilateral Denies: HPI: lightheadedness with back pain, duration longer than 10 minutes Denies: HPI: muscle tenderness, generalized Denies: HPI: myalgias, generalized Denies: HPI: numbness, groin or legs, new Denies: HPI: pain, radiation down leg Denies: HPI: pain, similar to past kidney stone Denies: HPI: skin erythema, back, worsening Denies: HPI: skin lump, swollen, painful, over the back Denies: HPI: skin swelling, back, worsening Denies: HPI: syncope Denies: HPI: urinary incontinence Denies: HPI: urinary urgency, constant Denies: HPI: vomiting Denies: HPI: weakness, duration longer than 10 minutes, with the back pain Denies: PMH: aortic aneurysm Denies: PMH: heart disease Denies: PMH: Marfan syndrome Denies: PMH: UTI /es/ GEOVANNA LEA [id number] Signed: 10/12/2023 13:17 Receipt Acknowledged By: 10/12/2023 16:23 /es/ AMINTA DE JESUS MSA AIR CONDITIONING UNIT ASSEMBLER, [facility] 10/15/2023 15:49 /es/ FLYNN DURAN AIR CONDITIONING UNIT ASSEMBLER [facility] 10/12/2023 15:09 /es/ MAMIE KRUEGER AIR CONDITIONING UNIT ASSEMBLER [employer] 10/15/2023 ADDENDUM STATUS: COMPLETED Please call to [facility] pact 3 /es/ FLYNN DURAN AIR CONDITIONING UNIT ASSEMBLER VICK Signed: 10/15/2023 15:50 Receipt Acknowledged By: * AWAITING SIGNATURE * KARINA GARCIA 10/15/2023 ADDENDUM STATUS: COMPLETED F: Telephone call D: Vet was called and was asked to return call when available to set up an appt with a New Provider. /autumn/ KARINA GARCIA MSN Ed., BSN JOURNAL BOX INSPECTOR NURSE Signed: 10/15/2023 17:10 [facility]
--- OUTSIDE RECORDS SUMMARY | 2024-06-19 21:06 | XMS_ITS ---
Author Name [facility] [place] Organization [facility] [place] Address [address] [place] [address] Care Team Providers Care Pr Specialist Name Role Phone MARILUZ STEWART Primary Care Provider Unavail able Selected Encounter This section includes the information on record at [place] for the Encounter. Date/Time Encounter Type Encounter Description Reason Pro vider Source Oct 12, 2023 12:56 PM Outpatient Encounter ADMIN PAT ACTIVTIES (MASNONCT) IHE Encounter Template Text not used by [place] Plan of Treatment: Future Appointments (+ 6 months) and Future Tests (+/- 45 days) The Plan of Treatment section includes future care activities for the patient from all [place] treatmentfacilities. This section includes future appointments and future orders which are active, pending or scheduled. Future Appointments This section includes appointments that were scheduled to occur 6 months from the date of the Encounter, up to a maximum of 20 appointments. The data comes from all [place] treatment facilities. Appointment Date/Time Appointment Type Appointme nt Facility Name Oct 21, 2023 01:00 PM AMBULATORY - MEDICINE [facility] [place] [facility] Lab Results: +/- 30 days of the encounter This section includes the Chemistry and Hematology Lab Results on record with [place] for the patient. Radiology Reports and Pathology Reports are provided separately, in subsequent sections. Lab Results This section contains the Chemistry/Hematology Results that were resulted 30 days before or 30 daysafter the date of the Encounter. Date/Time Source Result Type Result - Unit Interpretation Reference Range Comment Oct 21, 2023 02:50 PM [facility] HEPATITIS A ANTIBODY (IGG) Specimen Type: SERUM Comment: Hep A IgG: A 'Non-reactive ' result indicates no anti-HAV IgG was detected. Ordering Provider: ARY STEWART Report Released Date/Time: Oct 21, 2023 02:15 PM Reporting Lab: [address] [address] Performing Lab: [facility] [address] [facility] [address] HEPATITIS A ANTIBODY (IGG) Non Reactive Non Reactive Oct 21, 2023 02:50 PM [facility] HEPATITIS B SURFACE ANTIBODY (HBsAb)-WH Specimen Type: SERUM No comment entered. Ordering Provider: ARY STEWART Report Released Date/Time: Oct 21, 2023 02:15 PM Reporting Lab: [address] [address] Performing Lab: [address] [address] HBsAb Non Reactive Non Reactive Oct 21, 2023 02:50 PM [facility] URINALYSIS Specimen Type: URINE Comment: If Glucose = >500 and Ketones are positive, please alert the Physician. Ordering Provider: ARY STEWART Report Released Date/Time: Oct 21, 2023 02:15 PM Reporting Lab: [address] [address] Performing Lab: [address] [address] UA COLOR Yellow Yellow UA APPEARANCE Clear Clear UA GLUCOSE NEGATIVE mg/dL Negative UA KETONES NEGATIVE mg/dL Negative UA BLOOD NEGATIVE mg/dL Negative UA PROTEIN 20 mg/dL Negative UA NITRITE NEGATIVE mg/dL Negative UA BILIRUBIN NEGATIVE mg/dL Negative UA SPECIFIC GRAVITY 1.024 H 1.016-1.022 UA pH 6.0 5.0-9.0 UA UROBILINOGEN <2.0 mg/dL <2.0 UA LEUKOCYTE NEGATIVE Negative Oct 21, 2023 02:50 PM [facility] MICROALBUMIN CREATININE RATIO PANEL Specimen Type: URINE No comment entered. Ordering Provider: ARY STEWART Report Released Date/Time: Oct 21, 2023 02:15 PM Reporting Lab: [facility] [address] [facility] [address] Performing [facility]: [facility] [address] [facility] [address] MICROALBUMIN/ CREATININE RATIO 6.2 mg/g 0-29.9 MICROALBUMIN, QUANTITATIVE 1.5 mg/dL RR UNAVAIL CREATININE URINE 240.98 mg/dL Oct 21, 2023 02:50 PM [facility] URIC ACID Specimen Type: SERUM No comment entered. Ordering Provider: ARY STEWART Report Released Date/Time: Oct 21, 2023 02:15 PM Reporting Lab: [facility] [address] Performing Lab: [facility] [address] URIC ACID 5.4 mg/dL 3.5-7.2 Oct 21, 2023 02:50 PM [facility] CBC AND DIFF (AUTO) Specimen Type: BLOOD No comment entered. Ordering Provider: ARY STEWART Report Released Date/Time: Oct 21, 2023 02:23 PM Reporting Lab: [facility] [address] [address] Performing Lab: [facility] [address] [address] WBC 5.99 10*3/uL 4.50-11.00 RBC 4.47 10*6/uL 4.23-5.66 HGB 14.0 g/dL 12.8-17 HCT 40.0 39.2-50.4 MCV 89.5 fL 82-99 MCHC 35.0 g/dL 30.8-35.1 PLT 211 10*3/uL 140-360 RDW-CV 12.3 12.0-16.0 [place], Abs 0.38 10*3/uL 0.30-1.10 MCH 31.3 pg 26.2-32.6 Neut % 72.5 43.7-75.8 Lymph % 17.5 14.0-42.3 [place] % 6.3 5.1-13.7 Eos % 2.7 0.4-6.8 Baso % 0.8 0.1-2.0 Neut, Abs 4.34 10*3/uL 2.20-7.60 Lymph, Abs 1.05 10*3/uL 1.00-3.20 Eos, Abs 0.16 10*3/uL 0.03-0.44 Baso, Abs 0.05 10*3/uL 0.01-0.13 Immature Gran % 0.2 0.0-0.7 Immature Gran, Abs 0.01 10*3/uL 0.00-0.06 Oct 21, 2023 02:50 PM [facility] TSH Specimen Type: SERUM No comment entered. Ordering Provider: ARY STEWART Report Released Date/Time: Oct 21, 2023 02:15 PM Reporting Lab: [address] [address] Performing Lab: [address] [address] TSH 1.46 u[IU]/mL 0.35-5.00 Oct 21, 2023 02:50 PM [facility] HIV 1&2 Ag/Ab SCREEN Specimen Type: SERUM No comment entered. Ordering Provider: ARY STEWART Report Released Date/Time: Oct 21, 2023 02:15 PM Reporting Lab: [address] [address] Performing Lab: [address] [address] HIV 1&2 Ag/Ab SCREEN NON-REACTIVE Nonreactive Oct 21, 2023 02:50 PM [facility] HEPATITIS C ANTIBODY (HCV)-ARC Specimen Type: SERUM Comment: Hep C Ab: No HCV antibody detected. If recent infection is suspected or other evidence suggests HCV infection, consider HCV nucleic acid testing Ordering Provider: ARY STEWART Report Released Date/Time: Oct 21, 2023 02:15 PM Reporting Lab: [facility] [address] [facility] [address] Performing Lab: [address] [address] HEPATITIS C ANTIBODY NON-REACTIVE NON-REACTIVE Oct 21, 2023 02:50 PM [facility] BASIC METABOLIC PANEL (fasting) Specimen Type: SERUM No comment entered. Ordering Provider: ARY STEWART Report Released Date/Time: Oct 21, 2023 02:15 PM Reporting Lab: [address] [address] Performing Lab: [address] [address] UREA NITROGEN 28 mg/dL H 7-25 GLUCOSE 147 mg/dL H 65-100 SODIUM 139 mmol/L 135-145 POTASSIUM 4.4 mmol/L 3.5-5.0 CHLORIDE 103 mmol/L 100-110 CO2 27 meq/L 20-30 CREATININE, Serum 1.74 mg/dL H 0.50-1.40 eGFR(CKD-EPI 2020) 45 mL/min L >60 Oct 21, 2023 02:50 PM [facility] LIVER FUNCTION Specimen Type: SERUM No comment entered. Ordering Provider: ARY STEWART Report Released Date/Time: Oct 21, 2023 02:15 PM Reporting Lab: [address] [address] Performing Lab: [address] [address] PROTEIN,TOTAL 6.7 g/dL 6.0-8.3 ALBUMIN 4.1 g/dL 3.5-5.0 ALKALINE PHOSPHATASE 84 U/L 40-150 AST 19 U/L 5-34 ALT 28 U/L BILIRUBIN, TOTAL 0.6 mg/dL 0.2-1.2 Oct 21, 2023 02:50 PM [facility] LIPID PANEL FASTING Specimen Type: SERUM No comment entered. Ordering Provider: ARY STEWART Report Released Date/Time: Oct 21, 2023 02:15 PM Reporting Lab: [facility] [address] [facility] [address] Performing Lab: [facility] [address] [facility] [address] CHOLESTEROL 84 mg/dL TRIGLYCERIDE 87 mg/dL 0-150 LDL calculated 30 mg/dL 0-129 CHOL/HDL 2.3 HDL CHOLESTEROL 37 mg/dL L 40-60 Oct 21, 2023 02:50 PM [facility] HEMOGLOBIN A1C PANEL Specimen Type: [...] Oct 21, 2023 02:15 PM Reporting Lab: [facility] [address] [facility] [address] Performing Lab: [address] [address] HEMOGLOBIN A1C 6.1 H 4.0-5.6 Encounter Notes: All associated encounter notes This section contains the clinical notes associated to the Encounter. Date/Time Encounter Note(s) Provider Source Oct 12, 2023 12:56 PM ADMINISTRATIVE NOTE: LOCAL TITLE: CCC: SCHEDULING ADMINISTRATION STANDARD TITLE: ADMINISTRATIVE NOTE DATE OF NOTE: OCT 12, 2023@12:56 ENTRY DATE: OCT 12, 2023@12:56:53 AUTHOR: LUIS YDER EXP COSIGNER: URGENCY: STATUS: COMPLETED PT CALLED IN WOULD LIKE A CONSULT FOR PRIMARY CARE SET UP AT [facility]. THE PT CAN BE REACHED AT HOME PHONE ON FILE /autumn/ LUIS DYER Signed: 10/12/2023 12:57 Receipt Acknowledged By: 10/12/2023 16:16 /es/ AMINTA DE JESUS MSA CHECK SCALER, KULM CB 10/15/2023 15:48 /es/ FLYNN DURAN CHECK SCALER [facility]IS [facility]LMSTEAD [facility]
--- OUTSIDE RECORDS SUMMARY | 2024-06-19 21:06 | XMS_ITS | Encounter Summary ---
Author Name [facility] [place] Organization [facility] [place] Address [address] [place] [address] Care Team Providers Care Hide Paster Name Role Phone GERHARD NORRIS Primary Care Provider Unavail able Selected Encounter This section includes the information on record at [place] for the Encounter. Date/Time Encounter Type Encounter Description Reason Pro vider Source May 02, 2024 04:04 PM Outpatient Encounter TELEPHONE/MEDICINE IHE Encounter Template Text not used by [place] Social History: Smoking Status (Most current) and Tobacco Use (All prior to encounter date) This section includes the most current, and the historical, smoking and tobacco- related health factors from the [place] facility where the Encounter took place. Current Smoking Status This section includes the most current smoking, or tobacco-related health factor, from the [place] facility where the Encounter took place. Date/Time Current Smoking Status Comment Facil loyda Oct 15, 2023 04:18 PM [facility] NEVER USED [place] [facility] [place] [facility] Encounter Notes: All associated encounter notes This section contains the clinical notes associated to the Encounter. Date/Time Encounter Note(s) Provider Source May 02, 2024 04:04 PM CARE COORDINATION HOME TELEHEALTH DISCHARGE NOTE: LOCAL TITLE: L2 DISCHARGE NOTE STANDARD TITLE: CARE COORDINATION HOME TELEHEALTH DISCHARGE NOTE DATE OF NOTE: MAY 02, 2024@16:04 ENTRY DATE: MAY 02, 2024@16:04:14 AUTHOR: MANEKAS,SHERIE L EXP COSIGNER: URGENCY: STATUS: COMPLETED L2 DISCHARGE NOTE Has ADDENDA L2 Discharge Note DATE OF DISENROLLMENT: MAY 02, 2024 16:04 PROGRAM DISEASE MANAGEMENT PROTOCOL: L2 Telehealth 11/02/2023 L2 Dmp Weight Management REASON(S) FOR DISENROLLMENT: /caregiver declined services acknowledges understanding of the reasons for disenrollment Questions and concerns have been addressed RESOURCES REVIEWED WITH : has been offered alternate resources to support reaching health goals SUMMARY OF PROGRESS/REVIEW OF GOAL(S) SET BY : Pt has gained 3 pounds since start of TeleMOVE! program on 11-15-23 FOLLOW-UP PLAN FOR CONTINUED DISEASE SPECIFIC, SELF-MANAGEMENT EDUCATION AND HEALTH COACHING: will follow up with PACT team for usual care. /autumn/ SHERIE LUDWIG RD,AMRITN STAFF DIETITIAN Signed: 05/02/2024 16:06 Receipt Acknowledged By: 05/03/2024 15:07 /autumn/ PHILIP GREENBERG 05/02/2024 16:24 /autumn/ Gerhard Norris PA-C STAFF PHYSICIAN TELECASTING ENGINEER 05/03/2024 ADDENDUM STATUS: COMPLETED Discharge letter mailed to . /corina GREENBERG Signed: 05/03/2024 15:08 SHERIE LUDWIG [facility] [place] [facility]
== END ==
LOC: HO.SL 20:30
PROVIDERS: PCP Internal Medicine; Visit Provider Psychiatry & Neurology Neurology
DX: G47.33 Obstructive sleep apnea (adult) (pediatric) (principal)
CPT/HCPCS: 95811

== ENCOUNTER → 2024-06-19 20:50 | Outpatient (BNV) | payer OTHER, SELFPAY | PROVIDERS: PCP Internal Medicine; Visit Provider Psychiatry & Neurology Neurology | DX: G47.33 Obstructive sleep apnea (adult) (pediatric) (principal) | CPT/HCPCS: 95811 ==

== ENCOUNTER 2024-07-14 09:53 | Outpatient (REF) | payer OTHER, SELFPAY ==
--- OUTSIDE RECORDS SUMMARY | 2024-07-14 11:11 | XMS_ITS | Continuity of Care Document ---
Author Name [facility] Organization [facility] Care Team Providers Care Band Splicer Name Role Phone [facility] Unavailable Unavailable Problems Combined list of problems [...] [facility] [facility] Exposure to potentially hazardous substance ([facility] [id number] ) Active Condition Oct 22, 2023 Entered [...] Site Reaction Lot Number CVX Code Drug Mine Inspector Status Comments Source INFLUENZA, UNSPECIFIED FORMULATION 2022 [...] Oct 21, 2023 02:15 PM Reporting Lab: [facility] [address] [facility] [address] Performing Lab: [address] [address] [facility] HEPATITI S B SURFACE ANTIBODY (HBsAb)- WH HEPATITIS B VIRUS SURFACE AB [PRESENCE] IN SERUM BY IMMUNOASSA Y Non Reactive 10/20 Specimen Type: SERUM No comment entered. Ordering Provider: Pablo STEWART Report Released Date/Time: Oct 21, 2023 02:15 PM Reporting Lab: [facility] [address] [facility] [address] Performing Lab: [facility] [address] [facility] [address] [facility] URINALYS IS COLOR OF URINE Yellow 10/20 Specimen Type: URINE Comment: If Glucose = >500 and Ketones are positive, please alert the Physician. Ordering Provider: Pablo STEWART Report Released Date/Time: Oct 21, 2023 02:15 PM Reporting Lab: [facility] [place] [facility] [address] [facility] [address] Performing Lab: [facility] [place] [facility] [address] [facility] [address] [facility] [place] [facility] URINALYS IS APPEARANCE OF URINE Clear 10/20 Specimen Type: URINE Comment: If Glucose = >500 and Ketones are positive, please alert the Physician. Ordering Provider: Pablo STEWART Report Released Date/Time: Oct 21, 2023 02:15 PM Reporting Lab: [facility] [place] [address] [address] Performing Lab: [facility] [place] [facility] [address] [facility] [address] [facility] [place] [facility] URINALYS IS GLUCOSE [MASS/VOLU ME] IN URINE NEGATIVE mg/dL 10/20 Specimen Type: URINE Comment: If Glucose = >500 and Ketones are positive, please alert the Physician. Ordering Provider: Pablo STEWART Report Released Date/Time: Oct 21, 2023 02:15 PM Reporting Lab: [facility] [place] [facility] [address] [facility] [address] Performing Lab: [facility] [place] [facility] [address] [facility] [address] [facility] [place] [facility] URINALYS IS KETONES [MASS/VOLU ME] IN URINE BY TEST STRIP NEGATIVE mg/dL 10/20 Specimen Type: URINE Comment: If Glucose = >500 and Ketones are positive, please alert the Physician. Ordering Provider: Pablo STEWART Report Released Date/Time: Oct 21, 2023 02:15 PM Reporting Lab: [facility] [place] [address] [address] Performing Lab: [facility] [place] [facility] [address] [facility] [address] [facility] [place] [facility] URINALYS IS ERYTHROCYT ES [PRESENCE] IN URINE SEDIMENT BY LIGHT MICROSCOPY NEGATIVE mg/dL 10/20 Specimen Type: URINE Comment: If Glucose = >500 and Ketones are positive, please alert the Physician. Ordering Provider: Pablo STEWART Report Released Date/Time: Oct 21, 2023 02:15 PM Reporting Lab: [facility] [place] [facility] [address] [facility] [address] Performing Lab: [facility]ITALRMOODY HOSPITALTRN [facility] [address] [facility] [address] [facility] HOSPITALN [place] [facility] URINALYS IS PROTEIN [MASS/VOLU ME] IN URINE BY TEST STRIP 20 mg/dL 10/20 Specimen Type: URINE Comment: If Glucose = >500 and Ketones are positive, please alert the Physician. Ordering Provider: Pablo STEWART Report Released Date/Time: Oct 21, 2023 02:15 PM Reporting Lab: [facility] [place] [facility] [address] [facility] [address] Performing Lab: [facility] [place] [facility] [address] [facility] [address] [facility]ITALRUNIVERSITY OF [facility] WOMEN'S HOSPITALN [facility]ITALUSE [facility] URINALYS IS NITRITE [PRESENCE] IN URINE NEGATIVE mg/dL 10/20 Specimen Type: URINE Comment: If Glucose = >500 and Ketones are positive, please alert the Physician. Ordering Provider: Pablo STEWART Report Released Date/Time: Oct 21, 2023 02:15 PM Reporting Lab: [facility] [place] [facility] [address] [facility] [address] Performing Lab: [facility] [place] [facility] [address] [facility] [address] [facility]PITALRUNIVERSITY [facility] WOMEN'S HOSPITALN [facility] URINALYS IS BILIRUBIN. TOTAL [PRESENCE] IN URINE NEGATIVE mg/dL 10/20 Specimen Type: URINE Comment: If Glucose = >500 and Ketones are positive, please alert the Physician. Ordering Provider: Pablo STEWART Report Released Date/Time: Oct 21, 2023 02:15 PM Reporting Lab: [facility]PITALRMOODY HOSPITALTRN [place] [facility] [address] [facility] [address] Performing Lab: [facility] [place] [facility] [address] [facility] [address] [facility]ITALRMOODY HOSPITALTRN [place] [facility] URINALYS IS SPECIFIC GRAVITY OF URINE BY REFRACTOME TRY 1.024 1.016 - 1.022 10/20 H Specimen Type: URINE Comment: If Glucose = >500 and Ketones are positive, please alert the Physician. Ordering Provider: Pablo STEWART Report Released Date/Time: Oct 21, 2023 02:15 PM Reporting Lab: [facility] [place] [address] [address] Performing Lab: [facility]ITALRL TRN [facility]USE[address] [address] [facility]OSPITALRMOODY HOSPITALTRN [facility]OSPITALUSE [facility] URINALYS IS PH OF URINE BY TEST STRIP 6.0 5.0 - 9.0 10/20 Specimen Type: URINE Comment: If Glucose = >500 and Ketones are positive, please alert the Physician. Ordering Provider: Pablo STEWART Report Released Date/Time: Oct 21, 2023 02:15 PM Reporting Lab: [facility]PITALRMOODY HOSPITALTRN [place] [address] [address] Performing Lab: [facility]ITALRL TRN [facility]PITALUSETS [facility] [address] [facility] [address] [facility]ITAL[facility] TRN [facility] URINALYS IS UROBILINOG EN [MASS/VOLU ME] IN URINE BY TEST STRIP <2.0mg/d L <2.0 - 2.0 10/20 Specimen Type: URINE Comment: If Glucose = >500 and Ketones are positive, please alert the Physician. Ordering Provider: Pablo STEWART Report Released Date/Time: Oct 21, 2023 02:15 PM Reporting Lab: [facility]PITALRMOODY HOSPITALTRN [place] [facility] [address] [facility] [address] Performing Lab: [facility] [place] [facility] [address] [facility] [address] [facility] [place] [facility] URINALYS IS LEUKOCYTE ESTERASE [PRESENCE] IN URINE BY TEST STRIP NEGATIVE 10/20 Specimen Type: URINE Comment: If Glucose = >500 and Ketones are positive, please alert the Physician. Ordering Provider: Pablo STEWART Report Released Date/Time: Oct 21, 2023 02:15 PM Reporting Lab: [facility] [place] [facility] [address] [facility] [address] Performing Lab: [facility] [place] [facility] [address] [facility] [address] [facility] [place] [facility] MICROALB UMIN CREATINI NE RATIO PANEL MICROALBUM IN/CREATIN INE [MASS RATIO] IN URINE 6.2 mg/g 0 - 29.9 10/20 Specimen Type: URINE No comment entered. Ordering Provider: Pablo STEWART Report Released Date/Time: Oct 21, 2023 02:15 PM Reporting Lab: [facility] [place] [facility] [address] [facility] [address] Performing Lab: [facility] [place] [facility] [address] [facility] [address] [facility] [place] [facility] MICROALB UMIN CREATINI NE RATIO PANEL MICROALBUM IN [MASS/VOLU ME] IN URINE 1.5 mg/dL 10/20 Specimen Type: URINE No comment entered. Ordering Provider: Pablo STEWART Report Released Date/Time: Oct 21, 2023 02:15 PM Reporting Lab: [facility] [place] [facility] [address] [facility] [address] Performing Lab: [facility] [place] [facility] [address] [facility] [address] [facility] [place] [facility] MICROALB UMIN CREATINI NE RATIO PANEL CREATININE [MASS/VOLU ME] IN URINE 240.98 mg/dL 10/20 Specimen Type: URINE No comment entered. Ordering Provider: Pablo STEWART Report Released Date/Time: Oct 21, 2023 02:15 PM Reporting Lab: [facility] [place] [facility] [address] [facility] [address] Performing Lab: [facility] [place] [facility] [address] [facility] [address] [facility] [place] [facility] URIC ACID URATE [MASS/VOLU ME] IN SERUM OR PLASMA 5.4 mg/dL 3.5 - 7.2 10/20 Specimen Type: SERUM No comment entered. Ordering Provider: Pablo STEWART Report Released Date/Time: Oct 21, 2023 02:15 PM Reporting Lab: [facility] [place] [facility] [address] [facility] [address] Performing Lab: [facility] [place] [facility] [address] [facility] [address] [facility] [place] [facility] CBC AND DIFF (AUTO) LEUKOCYTES [#/VOLUME] IN BLOOD BY AUTOMATED COUNT 5.99 10*3/uL 4.50 - 11.00 10/20 Specimen Type: BLOOD No comment entered. Ordering Provider: Pablo STEWART Report Released Date/Time: Oct 21, 2023 02:23 PM Reporting Lab: [facility] [place] [facility] [address] [facility] [address] Performing Lab: [facility] [place] [facility] [address] [facility] [address] [facility] [place] [facility] CBC AND DIFF (AUTO) ERYTHROCYT ES [#/VOLUME] IN BLOOD BY AUTOMATED COUNT 4.47 10*6/uL 4.23 - 5.66 10/20 Specimen Type: BLOOD No comment entered. Ordering Provider: Pablo STEWART Report Released Date/Time: Oct 21, 2023 02:23 PM Reporting Lab: [facility] [place] [facility] [address] [facility] [address] Performing Lab: [facility] [place] [facility] [address] [facility] [address] [facility] [place] [facility] CBC AND DIFF (AUTO) HEMOGLOBIN [MASS/VOLU ME] IN BLOOD 14.0 g/dL 12.8 - 17 10/20 Specimen Type: BLOOD No comment entered. Ordering Provider: Pablo STEWART Report Released Date/Time: Oct 21, 2023 02:23 PM Reporting Lab: [facility] [place] [facility] [address] [facility] [address] Performing Lab: [facility] [place] [facility] [address] [facility] [address] [facility] [place] [facility] CBC AND DIFF (AUTO) HEMATOCRIT [VOLUME FRACTION] OF BLOOD BY AUTOMATED COUNT 40.0 39.2 - 50.4 10/20 Specimen Type: BLOOD No comment entered. Ordering Provider: Pablo STEWART Report Released Date/Time: Oct 21, 2023 02:23 PM Reporting Lab: [facility] [place] [facility] [address] [facility] [address] Performing Lab: [facility] [place] [facility] [address] [facility] [address] [facility] [place] [facility] CBC AND DIFF (AUTO) MCV [ENTITIC VOLUME] BY AUTOMATED COUNT 89.5 fL 82 - 99 10/20 Specimen Type: BLOOD No comment entered. Ordering Provider: Pablo STEWART Report Released Date/Time: Oct 21, 2023 02:23 PM Reporting Lab: [facility] [place] [facility] [address] [facility] [address] Performing Lab: [facility] [place] [facility] [address] [facility] [address] [facility] [place] [facility] CBC AND DIFF (AUTO) MCHC [MASS/VOLU ME] BY AUTOMATED COUNT 35.0 g/dL 30.8 - 35.1 10/20 Specimen Type: BLOOD No comment entered. Ordering Provider: Pablo STEWART Report Released Date/Time: Oct 21, 2023 02:23 PM Reporting Lab: [facility] [place] [facility] [address] [facility] [address] Performing Lab: [facility] [place] [facility] [address] [facility] [address] [facility] [place] [facility] CBC AND DIFF (AUTO) PLATELETS [#/VOLUME] IN BLOOD BY AUTOMATED COUNT 211 10*3/uL 140 - 360 10/20 Specimen Type: BLOOD No comment entered. Ordering Provider: Pablo STEWART Report Released Date/Time: Oct 21, 2023 02:23 PM Reporting Lab: [facility] [place] [facility] [address] [facility] [address] Performing Lab: [facility] [place] [address] [address] [facility] [place] [facility] CBC AND DIFF (AUTO) ERYTHROCYT E DISTRIBUTI ON WIDTH [RATIO] BY AUTOMATED COUNT 12.3 12.0 - 16.0 10/20 Specimen Type: BLOOD No comment entered. Ordering Provider: Pablo STEWART Report Released Date/Time: Oct 21, 2023 02:23 PM Reporting Lab: [facility] [place] [facility] [address] [facility] [address] Performing Lab: [facility] [place] [facility] [address] [facility] [address] [facility] [place] [facility] CBC AND DIFF (AUTO) MONOCYTES [#/VOLUME] IN BLOOD BY AUTOMATED COUNT 0.38 10*3/uL 0.30 - 1.10 10/20 Specimen Type: BLOOD No comment entered. Ordering Provider: Pablo STEWART Report Released Date/Time: Oct 21, 2023 02:23 PM Reporting Lab: [facility] [place] [facility] [address] [facility] [address] Performing Lab: [facility] [place] [address] [address] [facility] [place] [facility] CBC AND DIFF (AUTO) MCH [ENTITIC MASS] BY AUTOMATED COUNT 31.3 pg 26.2 - 32.6 10/20 Specimen Type: BLOOD No comment entered. Ordering Provider: Pablo STEWART Report Released Date/Time: Oct 21, 2023 02:23 PM Reporting Lab: [facility] [place] [facility] [address] [facility] [address] Performing Lab: [facility] [place] [facility] [address] [facility] [address] [facility] [place] [facility] CBC AND DIFF (AUTO) NEUTROPHIL S/100 LEUKOCYTES IN BLOOD BY AUTOMATED COUNT 72.5 43.7 - 75.8 10/20 Specimen Type: BLOOD No comment entered. Ordering Provider: Pablo STEWART Report Released Date/Time: Oct 21, 2023 02:23 PM Reporting Lab: [facility] [place] [facility] [address] [facility] [address] Performing Lab: [facility] [place] [facility] [address] [facility] [address] [facility] [place] [facility] CBC AND DIFF (AUTO) LYMPHOCYTE S/100 LEUKOCYTES IN BLOOD BY AUTOMATED COUNT 17.5 14.0 - 42.3 10/20 Specimen Type: BLOOD No comment entered. Ordering Provider: Pablo STEWART Report Released Date/Time: Oct 21, 2023 02:23 PM Reporting Lab: [facility] [place] [facility] [address] [facility] [address] Performing Lab: [facility] [place] [facility] [address] [facility] [address] [facility] [place] [facility] CBC AND DIFF (AUTO) MONOCYTES/ 100 LEUKOCYTES IN BLOOD BY AUTOMATED COUNT 6.3 5.1 - 13.7 10/20 Specimen Type: BLOOD No comment entered. Ordering Provider: Pablo STEWART Report Released Date/Time: Oct 21, 2023 02:23 PM Reporting Lab: [facility] [place] [facility] [address] [facility] [address] Performing Lab: [facility] [place] [facility] [address] [facility] [address] [facility] [place] [facility] CBC AND DIFF (AUTO) EOSINOPHIL S/100 LEUKOCYTES IN BLOOD BY AUTOMATED COUNT 2.7 0.4 - 6.8 10/20 Specimen Type: BLOOD No comment entered. Ordering Provider: Pablo STEWART Report Released Date/Time: Oct 21, 2023 02:23 PM Reporting Lab: [facility] [place] [address] [address] Performing Lab: [facility] [place] [facility] [address] [facility] [address] [facility] [place] [facility] CBC AND DIFF (AUTO) BASOPHILS/ 100 LEUKOCYTES IN BLOOD BY AUTOMATED COUNT 0.8 0.1 - 2.0 10/20 Specimen Type: BLOOD No comment entered. Ordering Provider: Pablo STEWART Report Released Date/Time: Oct 21, 2023 02:23 PM Reporting Lab: [facility] [place] [address] [address] Performing Lab: [facility] [place] [address] [address] [facility] [place] [facility] CBC AND DIFF (AUTO) NEUTROPHIL S [#/VOLUME] IN BLOOD BY AUTOMATED COUNT 4.34 10*3/uL 2.20 - 7.60 10/20 Specimen Type: BLOOD No comment entered. Ordering Provider: Pablo STEWART Report Released Date/Time: Oct 21, 2023 02:23 PM Reporting Lab: [facility] [place] [address] [address] Performing Lab: [facility] [place] [address] [address] [facility] [place] [facility] CBC AND DIFF (AUTO) LYMPHOCYTE S [#/VOLUME] IN BLOOD BY AUTOMATED COUNT 1.05 10*3/uL 1.00 - 3.20 10/20 Specimen Type: BLOOD No comment entered. Ordering Provider: Pablo STEWART Report Released Date/Time: Oct 21, 2023 02:23 PM Reporting Lab: [facility] [place] [address] [address] Performing Lab: [facility] [place] [facility] [address] [facility] [address] [facility] [place] [facility] CBC AND DIFF (AUTO) EOSINOPHIL S [#/VOLUME] IN BLOOD BY AUTOMATED COUNT 0.16 10*3/uL 0.03 - 0.44 10/20 Specimen Type: BLOOD No comment entered. Ordering Provider: Pablo STEWART Report Released Date/Time: Oct 21, 2023 02:23 PM Reporting Lab: [facility] [place] [facility] [address] [facility] [address] Performing Lab: [facility] [place] [address] [address] [facility] [place] [facility] CBC AND DIFF (AUTO) BASOPHILS [#/VOLUME] IN BLOOD BY AUTOMATED COUNT 0.05 10*3/uL 0.01 - 0.13 10/20 Specimen Type: BLOOD No comment entered. Ordering Provider: Pablo STEWART Report Released Date/Time: Oct 21, 2023 02:23 PM Reporting Lab: [facility] [place] [address] [address] Performing Lab: [facility] [place] [address] [address] [facility] [place] [facility] CBC AND DIFF (AUTO) IMMATURE GRANULOCYT ES/100 LEUKOCYTES IN BLOOD BY AUTOMATED COUNT 0.2 0.0 - 0.7 10/20 Specimen Type: BLOOD No comment entered. Ordering Provider: Pablo STEWART Report Released Date/Time: Oct 21, 2023 02:23 PM Reporting Lab: [facility] [place] [address] [address] Performing Lab: [facility] [place] [address] [address] [facility] [place] [facility] CBC AND DIFF (AUTO) IMMATURE GRANULOCYT ES [#/VOLUME] IN BLOOD 0.01 10*3/uL 0.00 - 0.06 10/20 Specimen Type: BLOOD No comment entered. Ordering Provider: Pablo STEWART Report Released Date/Time: Oct 21, 2023 02:23 PM Reporting Lab: [facility] [place] [facility] [address] [facility] [address] Performing Lab: [facility] [place] [address] [address] [facility] [place] [facility] TSH THYROTROPI N [UNITS/VOL UME] IN SERUM OR PLASMA 1.46 u[IU]/mL 0.35 - 5.00 10/20 Specimen Type: SERUM No comment entered. Ordering Provider: Pablo STEWART Report Released Date/Time: Oct 21, 2023 02:15 PM Reporting Lab: [facility] [place] [address] [address] Performing Lab: [facility] [address] [address] [facility] [place] [facility] HIV 1&2 Ag/Ab SCREEN HIV 1+2 AB+HIV1 P24 AG [PRESENCE] IN SERUM OR PLASMA BY IMMUNOASSA Y NON-REAC TIVE 10/20 Specimen Type: SERUM No comment entered. Ordering Provider: Pablo STEWART Report Released Date/Time: Oct 21, 2023 02:15 PM Reporting Lab: [facility] [address] [address] Performing Lab: [facility] [address] [address] [facility] [place] [facility] HEPATITI S C ANTIBODY (HCV)-AR C HEPATITIS C VIRUS AB [PRESENCE] IN SERUM NON-REAC TIVE 10/20 Specimen Type: SERUM Comment: Hep C Ab: No HCV antibody detected. If recent infection is suspected or other evidence suggests HCV infection, consider HCV nucleic acid testing Ordering Provider: Pablo STEWART Report Released Date/Time: Oct 21, 2023 02:15 PM Reporting Lab: [facility] [address] [address] Performing Lab: [facility] [place] [facility] [address] [facility] [address] [facility] [place] [facility] BASIC METABOLI C PANEL (fasting ) UREA NITROGEN [MASS/VOLU ME] IN SERUM OR PLASMA 28 mg/dL 7 - 25 10/20 H Specimen Type: SERUM No comment entered. Ordering Provider: Pablo STEWART Report Released Date/Time: Oct 21, 2023 02:15 PM Reporting Lab: [facility] [place] [facility] [address] [facility] [address] Performing Lab: [facility] [address] [facility] [address] [facility] BASIC METABOLI C PANEL (fasting ) GLUCOSE [MASS/VOLU ME] IN SERUM OR PLASMA 147 mg/dL 65 - 100 10/20 H Specimen Type: SERUM No comment entered. Ordering Provider: Pablo STEWART Report Released Date/Time: Oct 21, 2023 02:15 PM Reporting Lab: [facility] [address] [facility] [address] Performing Lab: [facility] [address] [facility] [address] [facility] BASIC METABOLI C PANEL (fasting ) SODIUM [MOLES/VOL UME] IN SERUM OR PLASMA 139 mmol/L 135 - 145 10/20 Specimen Type: SERUM No comment entered. Ordering Provider: Pablo STEWART Report Released Date/Time: Oct 21, 2023 02:15 PM Reporting Lab: [place] [facility] [facility] [address] [facility] [address] Performing Lab: [place] [facility] [facility] [address] [facility] [address] [facility] BASIC METABOLI C PANEL (fasting ) POTASSIUM [MOLES/VOL UME] IN SERUM OR PLASMA 4.4 mmol/L 3.5 - 5.0 10/20 Specimen Type: SERUM No comment entered. Ordering Provider: Pablo STEWART Report Released Date/Time: Oct 21, 2023 02:15 PM Reporting Lab: [facility] [place] [facility] [address] [facility] [address] Performing Lab: [facility] [place] [facility] [address] [facility] [address] [facility] [place] [facility] BASIC METABOLI C PANEL (fasting ) CHLORIDE [MOLES/VOL UME] IN SERUM OR PLASMA 103 mmol/L 100 - 110 10/20 Specimen Type: SERUM No comment entered. Ordering Provider: Pablo STEWART Report Released Date/Time: Oct 21, 2023 02:15 PM Reporting Lab: [facility] [place] [address] [address] Performing Lab: [facility] [place] [address] [address] [facility] [place] [facility] BASIC METABOLI C PANEL (fasting ) CARBON DIOXIDE, TOTAL [MOLES/VOL UME] IN SERUM OR PLASMA 27 meq/L 20 - 30 10/20 Specimen Type: SERUM No comment entered. Ordering Provider: Pablo STEWART Report Released Date/Time: Oct 21, 2023 02:15 PM Reporting Lab: [facility] [place] [address] [address] Performing Lab: [facility] [place] [address] [address] [facility] [place] [facility] BASIC METABOLI C PANEL (fasting ) CREATININE [MASS/VOLU ME] IN SERUM OR PLASMA 1.74 mg/dL 0.50 - 1.40 10/20 H Specimen Type: SERUM No comment entered. Ordering Provider: Pablo STEWART Report Released Date/Time: Oct 21, 2023 02:15 PM Reporting Lab: [facility] [place] [address] [address] Performing Lab: [facility] [place] [address] [address] [facility] [place] [facility] [facility] BASIC METABOLI C PANEL (fasting ) GLOMERULAR FILTRATION RATE/1.73 SQ M.PREDICTE D [VOLUME RATE/AREA] IN SERUM, PLASMA OR BLOOD BY CREATININE -BASED FORMULA (CKD-EPI 2020) 45 mL/min 60 10/20 L Specimen Type: SERUM No comment entered. Ordering Provider: Pablo STEWART Report Released Date/Time: Oct 21, 2023 02:15 PM Reporting Lab: [facility] [address] [address] Performing Lab: [facility] [address] [address] [facility] Vital Signs Combined list of inpatient [...] months. 2) Encounters from the Department of [employer] facilities going back up to 280 months. Location Location Details Encounter Type Encounter Number Reason For Visit Attending Provider ADM Date DC Date Status Disposition Source [facility] Outpatient Encounter [id number] 02/26 [facility] Out[facility]counter [id number] 10/11 [facility] Out[facility]counter [id number] 10/11 [facility] Out[facility] Encounter [id number] 10/14 [facility] Out[facility] Encounter [id number] 10/14 [facility] OFFICE O/P NEW MOD 45 MIN [id number] Diagnos is: ICD-10- CM 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
MARILUZ STEWART 10/20 [facility] Out[facility] Encounter [id number] Diagnos is: ICD-10- CM E66.09 Other obesity due to excess calorie s
MANEKAS,DI NA L 11/17 [facility] Out[facility] Encounter [id number] 11/25 [facility] Out[facility] Encounter [id number] Diagnos is: ICD-10- CM E66.09 Other obesity due to excess calorie s
MANEKAS,DI NA L 12/13 [facility] Encounter [id number] 01/10 [facility] Out[facility] Encounter [id number] Diagnos is: ICD-10- CM E66.09 Other obesity due to excess calorie s
MANEKAS,DI NA L 01/13 [facility] Out[facility] Encounter [id number] 02/20 [facility] Out[facility] Encounter [id number] Diagnos is: ICD-10- CM E66.09 Other obesity due to excess calorie s
MANEKAS,DI NA L 02/20 [facility] Out[facility] Encounter [id number] SARAH GARCIA ISTOPHER E 02/23 [facility] Out[facility] Encounter [id number] Diagnos is: ICD-10- CM E66.09 Other obesity due to excess calorie s
MANEKAS,DI NA L 03/13 [facility] Outpatient Encounter [id number] 03/27 [facility] Outpatient Encounter [id number] Diagnos is: ICD-10- CM E66.09 Other obesity due to excess calorie s
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 Social History Type Response Date Comment [facility] e Tobacco smoking status [facility] VA-TOBACCO NEVER USED 10/15/2023 [facility]
[2024-07-14 13:15] LABS: Anion Gap 13 (12-20); Blood Urea Nitrogen 26 mg/dL (9-16); Calcium 9.5 mg/dL (8.4-10.2); Carbon Dioxide 27 mmol/L (22-29); Chloride 106 mmol/L (96-108); Estimated Glomerular Filt Rate 51; Glucose Random 118 mg/dL (60-115); Potassium 4.5 mmol/L (3.3-5.1); Sodium 141 mmol/L (135-145)
== END 2024-07-14 09:54 | disposition home or self-care (01) ==
LOC: HO.HMGCLDS 09:53
PROVIDERS: PCP Internal Medicine; Visit Provider Internal Medicine Hypertension Specialist
DX: N18.30 Chronic kidney disease, stage 3 unspecified (principal)
CPT/HCPCS: 36415; 80048

== ENCOUNTER 2024-07-18 09:25 | Outpatient (AMB) | payer OTHER, SELFPAY ==
--- NOTE | 2024-07-18 09:26 | HO.NEPHOV_ITS ---
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 Accompanied by: Self / Same As Patient Allergies No Known Allergies Allergy (Verified 07/18/24 09:29) Medication List - Last Reconciled 07/18/24 by Abilio Garsia MD allopurinol 300 mg PO DAILY amlodipine 5 mg PO DAILY aripiprazole 5 mg PO DAILY aspirin (Erick Low Dose Aspirin) 81 mg PO DAILY 90 days atorvastatin 20 mg PO DAILY 90 days blood sugar diagnostic ([employer] Ultra Test strips) Test blood sugar once a day bupropion HCl XL 300 mg PO QAM codeine-guaifenesin 10-100 mg/5 mL 10 mL PO Q4-6H PRN duloxetine 60 mg PO BEDTIME flash glucose scanning reader ([employer] Sonido [employer]) As directed flash glucose sensor ([employer] Sonido 2 Sensor kit) As directed Lantus Solostar U-100 Insulin (insulin glargine) 90 units (0.9 mL) subcut QPM 90 days NS losartan 100 mg PO DAILY pen needle, diabetic ([employer] Pen Needle) As directed penicillin V potassium 250 mg PO BID 90 days pioglitazone 15 mg PO DAILY pioglitazone 15 mg PO DAILY potassium citrate ER 20 mEq (2 x 10 mEq (1,080 mg)) PO BID 90 days spironolacton-hydrochlorothiaz 25-25 mg 1 tab PO DAILY trazodone 100 mg PO BEDTIME HPI Comments Details: 58-year-old man with a history of diabetes mellitus obesity and obstructive sleep apnea with history of nephrolithiasis is here for evaluation of renal function He is being followed by Urology. 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 Diabetes 1.5, managed as type 1 Complex regional pain syndrome of both lower extremities Diabetic peripheral neuropathy Spondylosis of lumbar region without myelopathy or radiculopathy Surgical History S/P placement of nerve stimulator Hx of lithotripsy Hx of colonoscopy Family History Other Mental health disorder Social History Housing: Condominium Alcohol intake: never Patient Tobacco Use Status: Never used Tobacco e-Cigarette/Vaping Use: Never Used Second Hand Smoke Exposure: No service: No Current occupational status: disabled Cognitive needs: No Hearing needs: No Vision needs: Yes Physical Exam Vital Signs: Last Vital Signs Pulse 84 07/18/24 09:27 BP 118/82 07/18/24 09:27 Pulse Ox 97 07/18/24 09:27 Oxygen Delivery Method Room Air 07/18/24 09:27 BMI result Body Mass Index 38.2 Results Reviewed Nephrology Results: Hgb 14.6 g/dl (14.0-18.0) 05/15/24 WBC 7.8 X10*3/uL (4.8-10.8) 05/15/24 Plt Count 230 X10*3/uL (160-400) 05/15/24 Sodium 141 mmol/L (135-145) 07/14/24 Potassium 4.5 mmol/L (3.3-5.1) 07/14/24 Chloride 106 mmol/L (96-108) 07/14/24 Carbon Dioxide 27 mmol/L (22-29) 07/14/24 BUN 26 mg/dL (9-16) H 07/14/24 Creatinine 1.43 mg/dL (0.5-1.4) H 07/14/24 Calcium 9.5 mg/dL (8.4-10.2) 07/14/24 Urine Creatinine 131.65 mg/dL 05/15/24 Renal US 03/14/24 Assessment & Plan Assessment & Plan (1) Chronic kidney disease: Code(s): N18.9 - Chronic kidney disease, unspecified Category: Medical Qualifiers: Chronic kidney disease stage: stage 3 (moderate) Chronic kidney disease stage 3 subtype: unspecified whether 3a or 3b Qualified Code(s): N18.30 - Chronic kidney disease, stage 3 unspecified Plan 56-year-old man with hypertension CKD and nephrolithiasis. Given the history of nephrolithiasis Hypocitraturia ON potassium citrate and Aldactazide. encouraged him to stay on low-sodium diet He should avoid salt substitute. We will monitor serum potassium closely. CKD 3 Cr is down to 1.43 Encouraged him to use CPAP regularly. He continue to avoid nephrotoxic agents including NSAIDs. Blood pressure well controlled. Maintain hemoglobin A1c less than 7%. Discussed weight loss. Orders: Orders Basic Metabolic Panel 4 Months N18.30 - Chronic kidney disease, stage 3 unspecified UA and rflx microscopic 4 Months N18.30 - Chronic kidney disease, stage 3 unspecified Creatinine Urine 4 Months N18.30 - Chronic kidney disease, stage 3 unspecified Total Protein Urine Random 4 Months N18.30 - Chronic kidney disease, stage 3 unspecified Medications: Refilled amlodipine 5 mg PO DAILY 90 tabs 3RF Coding Level of Care Code Est Pt Level 4 (31662) Diagnoses Stage 3 chronic kidney disease, unspecified whether stage 3a or 3b CKD N18.30 Chronic kidney disease stage: stage 3 (moderate) Chronic kidney disease stage 3 subtype: unspecified whether 3a or 3b
[2024-07-18 09:27] VITALS: BP 118/82; PULSE 84; O2SAT 97; BMI 38.2
--- OUTSIDE RECORDS SUMMARY | 2024-07-18 10:16 | XMS_ITS | Continuity of Care Document ---
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 [address] Performing Lab: [address] [address] [facility] HEPATITI S B SURFACE ANTIBODY (HBsAb)- WH HEPATITIS B VIRUS SURFACE AB [PRESENCE] IN SERUM BY IMMUNOASSA Y Non Reactive 10/20 Specimen Type: SERUM No comment entered. Ordering Provider: Pablo STEWART Report Released Date/Time: Oct 21, 2023 02:15 PM Reporting Lab: [facility] [address] [facility] [address] Performing Lab: [facility] [address] [facility] [address] [facility] URINALYS IS COLOR OF URINE Yellow 10/20 Specimen Type: URINE Comment: If Glucose = >500 and Ketones are positive, please alert the Physician. Ordering Provider: Pablo STEWART Report Released Date/Time: Oct 21, 2023 02:15 PM Reporting Lab: [facility] [place] [facility] [address] [facility] [address] Performing Lab: [facility] [place] [facility] [address] [facility] [address] [facility] [place] [facility] URINALYS IS APPEARANCE OF URINE Clear 10/20 Specimen Type: URINE Comment: If Glucose = >500 and Ketones are positive, please alert the Physician. Ordering Provider: Pablo STEWART Report Released Date/Time: Oct 21, 2023 02:15 PM Reporting Lab: [facility] [place] [address] [address] Performing Lab: [facility] [place] [facility] [address] [facility] [address] [facility] [place] [facility] URINALYS IS GLUCOSE [MASS/VOLU ME] IN URINE NEGATIVE mg/dL 10/20 Specimen Type: URINE Comment: If Glucose = >500 and Ketones are positive, please alert the Physician. Ordering Provider: Pablo STEWART Report Released Date/Time: Oct 21, 2023 02:15 PM Reporting Lab: [facility] [place] [facility] [address] [facility] [address] Performing Lab: [facility] [place] [facility] [address] [facility] [address] [facility] [place] [facility] URINALYS IS KETONES [MASS/VOLU ME] IN URINE BY TEST STRIP NEGATIVE mg/dL 10/20 Specimen Type: URINE Comment: If Glucose = >500 and Ketones are positive, please alert the Physician. Ordering Provider: Pablo STEWART Report Released Date/Time: Oct 21, 2023 02:15 PM Reporting Lab: [facility] [place] [address] [address] Performing Lab: [facility] [place] [facility] [address] [facility] [address] [facility] [place] [facility] URINALYS IS ERYTHROCYT ES [PRESENCE] IN URINE SEDIMENT BY LIGHT MICROSCOPY NEGATIVE mg/dL 10/20 Specimen Type: URINE Comment: If Glucose = >500 and Ketones are positive, please alert the Physician. Ordering Provider: Pablo STEWART Report Released Date/Time: Oct 21, 2023 02:15 PM Reporting Lab: [facility] [place] [facility] [address] [facility] [address] Performing Lab: [facility]ITALRSHOALS HOSPITALTRN [facility] HOSPITALUSETS [facility] [address] [facility] [facility] [address] [facility]ITALRW[facility]ITALN [place] [facility] URINALYS IS PROTEIN [MASS/VOLU ME] IN URINE BY TEST STRIP 20 mg/dL 10/20 Specimen Type: URINE Comment: If Glucose = >500 and Ketones are positive, please alert the Physician. Ordering Provider: Pablo STEWART Report Released Date/Time: Oct 21, 2023 02:15 PM Reporting Lab: [facility] [place] [facility] [address] [facility] [address] Performing Lab: [facility] [place] [facility] [address] [facility] [address] [facility]ITALRWALKER COUNTY HOSPITALN [facility] HOSPITALUSE [facility] URINALYS IS NITRITE [PRESENCE] IN URINE NEGATIVE mg/dL 10/20 Specimen Type: URINE Comment: If Glucose = >500 and Ketones are positive, please alert the Physician. Ordering Provider: Pablo STEWART Report Released Date/Time: Oct 21, 2023 02:15 PM Reporting Lab: [facility] [place] [facility] [address] [facility] [address] Performing Lab: [facility] [place] [facility] [address] [facility] [address] [facility]RWALK[facility] HOSPITALN [facility] HOSPITALCHUSE [facility] URINALYS IS BILIRUBIN. TOTAL [PRESENCE] IN URINE NEGATIVE mg/dL 10/20 Specimen Type: URINE Comment: If Glucose = >500 and Ketones are positive, please alert the Physician. Ordering Provider: Pablo STEWART Report Released Date/Time: Oct 21, 2023 02:15 PM Reporting Lab: [facility]ITALRSHOALS HOSPITALTRN [place] [facility] [address] [facility] [address] Performing Lab: [facility] [place] [facility] [address] [facility] [address] [facility]ITALRSHOALS HOSPITALTRN [place] [facility] URINALYS IS SPECIFIC GRAVITY OF URINE BY REFRACTOME TRY 1.024 1.016 - 1.022 10/20 H Specimen Type: URINE Comment: If Glucose = >500 and Ketones are positive, please alert the Physician. Ordering Provider: Pablo STEWART Report Released Date/Time: Oct 21, 2023 02:15 PM Reporting Lab: [facility] [place] [address] [address] Performing Lab: [facility]ITALRL TRN [facility] HOSPITALUSE[address] [address] [facility]PITALRSHOALS HOSPITALTRN [facility] HOSPITALUSE [facility] URINALYS IS PH OF URINE BY TEST STRIP 6.0 5.0 - 9.0 10/20 Specimen Type: URINE Comment: If Glucose = >500 and Ketones are positive, please alert the Physician. Ordering Provider: Pablo STEWART Report Released Date/Time: Oct 21, 2023 02:15 PM Reporting Lab: [facility]ITALRSHOALS HOSPITALTRN [place] [address] [address] Performing Lab: [facility]PITALRL TRN [facility] HOSPITALUSETS [facility] [address] [facility] [facility] [address] FORMERLY [facility]RL TRN [facility] VINCENT'S HOSPITALCHUSE [facility] URINALYS IS UROBILINOG EN [MASS/VOLU ME] IN URINE BY TEST STRIP <2.0mg/d L <2.0 - 2.0 10/20 Specimen Type: URINE Comment: If Glucose = >500 and Ketones are positive, please alert the Physician. Ordering Provider: Pablo STEWART Report Released Date/Time: Oct 21, 2023 02:15 PM Reporting Lab: [facility]ITALRSHOALS HOSPITALTRN [place] [facility] [address] [facility] [facility] [address] Performing Lab: [facility] [place] [facility] [address] [facility] [facility] [address] [facility] [place] [facility] URINALYS IS LEUKOCYTE ESTERASE [PRESENCE] IN URINE BY TEST STRIP NEGATIVE 10/20 Specimen Type: URINE Comment: If Glucose = >500 and Ketones are positive, please alert the Physician. Ordering Provider: Pablo STEWART Report Released Date/Time: Oct 21, 2023 02:15 PM Reporting Lab: [facility] [place] [facility] [address] [facility] [address] Performing Lab: [facility] [place] [facility] [address] [facility] [address] [facility] [place] [facility] MICROALB UMIN CREATINI NE RATIO PANEL MICROALBUM IN/CREATIN INE [MASS RATIO] IN URINE 6.2 mg/g 0 - 29.9 10/20 Specimen Type: URINE No comment entered. Ordering Provider: Pablo STEWART Report Released Date/Time: Oct 21, 2023 02:15 PM Reporting Lab: [facility] [place] [facility] [address] [facility] [facility] [address] Performing Lab: [facility] [place] [facility] [address] [facility] [address] [facility] [place] [facility] MICROALB UMIN CREATINI NE RATIO PANEL MICROALBUM IN [MASS/VOLU ME] IN URINE 1.5 mg/dL 10/20 Specimen Type: URINE No comment entered. Ordering Provider: Pablo STEWART Report Released Date/Time: Oct 21, 2023 02:15 PM Reporting Lab: [facility] [place] [facility] [address] [facility] [address] Performing Lab: [facility] [place] [facility] [address] [facility] [address] [facility] [place] [facility] MICROALB UMIN CREATINI NE RATIO PANEL CREATININE [MASS/VOLU ME] IN URINE 240.98 mg/dL 10/20 Specimen Type: URINE No comment entered. Ordering Provider: Pablo STEWART Report Released Date/Time: Oct 21, 2023 02:15 PM Reporting Lab: [facility] [place] [facility] [address] [facility] [address] Performing Lab: [facility] [place] [facility] [address] [facility] [address] [facility] [place] [facility] URIC ACID URATE [MASS/VOLU ME] IN SERUM OR PLASMA 5.4 mg/dL 3.5 - 7.2 10/20 Specimen Type: SERUM No comment entered. Ordering Provider: Pablo STEWART Report Released Date/Time: Oct 21, 2023 02:15 PM Reporting Lab: [facility] [place] [facility] [address] [facility] [address] Performing Lab: [facility] [place] [facility] [address] [facility] [address] [facility] [place] [facility] CBC AND DIFF (AUTO) LEUKOCYTES [#/VOLUME] IN BLOOD BY AUTOMATED COUNT 5.99 10*3/uL 4.50 - 11.00 10/20 Specimen Type: BLOOD No comment entered. Ordering Provider: Pablo STEWART Report Released Date/Time: Oct 21, 2023 02:23 PM Reporting Lab: [facility] [place] [facility] [address] [facility] [address] Performing Lab: [facility] [place] [facility] [address] [facility] [address] [facility] [place] [facility] CBC AND DIFF (AUTO) ERYTHROCYT ES [#/VOLUME] IN BLOOD BY AUTOMATED COUNT 4.47 10*6/uL 4.23 - 5.66 10/20 Specimen Type: BLOOD No comment entered. Ordering Provider: Pablo STEWART Report Released Date/Time: Oct 21, 2023 02:23 PM Reporting Lab: [facility] [place] [facility] [address] [facility] [address] Performing Lab: [facility] [place] [facility] [address] [facility] [address] [facility] [place] [facility] CBC AND DIFF (AUTO) HEMOGLOBIN [MASS/VOLU ME] IN BLOOD 14.0 g/dL 12.8 - 17 10/20 Specimen Type: BLOOD No comment entered. Ordering Provider: Pablo STEWART Report Released Date/Time: Oct 21, 2023 02:23 PM Reporting Lab: [facility] [place] [facility] [address] [facility] [address] Performing Lab: [facility] [place] [facility] [address] [facility] [address] [facility] [place] [facility] CBC AND DIFF (AUTO) HEMATOCRIT [VOLUME FRACTION] OF BLOOD BY AUTOMATED COUNT 40.0 39.2 - 50.4 10/20 Specimen Type: BLOOD No comment entered. Ordering Provider: Pablo STEWART Report Released Date/Time: Oct 21, 2023 02:23 PM Reporting Lab: [facility] [place] [facility] [address] [facility] [address] Performing Lab: [facility] [place] [facility] [address] [facility] [address] [facility] [place] [facility] CBC AND DIFF (AUTO) MCV [ENTITIC VOLUME] BY AUTOMATED COUNT 89.5 fL 82 - 99 10/20 Specimen Type: BLOOD No comment entered. Ordering Provider: Pablo STEWART Report Released Date/Time: Oct 21, 2023 02:23 PM Reporting Lab: [facility] [place] [facility] [address] [facility] [address] Performing Lab: [facility] [place] [facility] [address] [facility] [address] [facility] [place] [facility] CBC AND DIFF (AUTO) MCHC [MASS/VOLU ME] BY AUTOMATED COUNT 35.0 g/dL 30.8 - 35.1 10/20 Specimen Type: BLOOD No comment entered. Ordering Provider: Pablo STEWART Report Released Date/Time: Oct 21, 2023 02:23 PM Reporting Lab: [facility] [place] [facility] [address] [facility] [address] Performing Lab: [facility] [place] [facility] [address] [facility] [address] [facility] [place] [facility] CBC AND DIFF (AUTO) PLATELETS [#/VOLUME] IN BLOOD BY AUTOMATED COUNT 211 10*3/uL 140 - 360 10/20 Specimen Type: BLOOD No comment entered. Ordering Provider: Pablo STEWART Report Released Date/Time: Oct 21, 2023 02:23 PM Reporting Lab: [facility] [place] [facility] [address] [facility] [address] Performing Lab: [facility] [place] [address] [address] [facility] [place] [facility] CBC AND DIFF (AUTO) ERYTHROCYT E DISTRIBUTI ON WIDTH [RATIO] BY AUTOMATED COUNT 12.3 12.0 - 16.0 10/20 Specimen Type: BLOOD No comment entered. Ordering Provider: Pablo STEWART Report Released Date/Time: Oct 21, 2023 02:23 PM Reporting Lab: [facility] [place] [facility] [address] [facility] [address] Performing Lab: [facility] [place] [facility] [address] [facility] [address] [facility] [place] [facility] CBC AND DIFF (AUTO) MONOCYTES [#/VOLUME] IN BLOOD BY AUTOMATED COUNT 0.38 10*3/uL 0.30 - 1.10 10/20 Specimen Type: BLOOD No comment entered. Ordering Provider: Pablo STEWART Report Released Date/Time: Oct 21, 2023 02:23 PM Reporting Lab: [facility] [place] [facility] [address] [facility] [address] Performing Lab: [facility] [place] [address] [address] [facility] [place] [facility] CBC AND DIFF (AUTO) MCH [ENTITIC MASS] BY AUTOMATED COUNT 31.3 pg 26.2 - 32.6 10/20 Specimen Type: BLOOD No comment entered. Ordering Provider: Pablo STEWART Report Released Date/Time: Oct 21, 2023 02:23 PM Reporting Lab: [facility] [place] [facility] [address] [facility] [address] Performing Lab: [facility] [place] [facility] [address] [facility] [address] [facility] [place] [facility] CBC AND DIFF (AUTO) NEUTROPHIL S/100 LEUKOCYTES IN BLOOD BY AUTOMATED COUNT 72.5 43.7 - 75.8 10/20 Specimen Type: BLOOD No comment entered. Ordering Provider: Pablo STEWART Report Released Date/Time: Oct 21, 2023 02:23 PM Reporting Lab: [facility] [place] [facility] [address] [facility] [address] Performing Lab: [facility] [place] [facility] [address] [facility] [address] [facility] [place] [facility] CBC AND DIFF (AUTO) LYMPHOCYTE S/100 LEUKOCYTES IN BLOOD BY AUTOMATED COUNT 17.5 14.0 - 42.3 10/20 Specimen Type: BLOOD No comment entered. Ordering Provider: Pablo STEWART Report Released Date/Time: Oct 21, 2023 02:23 PM Reporting Lab: [facility] [place] [facility] [address] [facility] [address] Performing Lab: [facility] [place] [facility] [address] [facility] [address] [facility] [place] [facility] CBC AND DIFF (AUTO) MONOCYTES/ 100 LEUKOCYTES IN BLOOD BY AUTOMATED COUNT 6.3 5.1 - 13.7 10/20 Specimen Type: BLOOD No comment entered. Ordering Provider: Pablo STEWART Report Released Date/Time: Oct 21, 2023 02:23 PM Reporting Lab: [facility] [place] [facility] [address] [facility] [address] Performing Lab: [facility] [place] [facility] [address] [facility] [address] [facility] [place] [facility] CBC AND DIFF (AUTO) EOSINOPHIL S/100 LEUKOCYTES IN BLOOD BY AUTOMATED COUNT 2.7 0.4 - 6.8 10/20 Specimen Type: BLOOD No comment entered. Ordering Provider: Pablo STEWART Report Released Date/Time: Oct 21, 2023 02:23 PM Reporting Lab: [facility] [place] [address] [address] Performing Lab: [facility] [place] [facility] [address] [facility] [address] [facility] [place] [facility] CBC AND DIFF (AUTO) BASOPHILS/ 100 LEUKOCYTES IN BLOOD BY AUTOMATED COUNT 0.8 0.1 - 2.0 10/20 Specimen Type: BLOOD No comment entered. Ordering Provider: Pablo STEWART Report Released Date/Time: Oct 21, 2023 02:23 PM Reporting Lab: [facility] [place] [address] [address] Performing Lab: [facility] [place] [address] [address] [facility] [place] [facility] CBC AND DIFF (AUTO) NEUTROPHIL S [#/VOLUME] IN BLOOD BY AUTOMATED COUNT 4.34 10*3/uL 2.20 - 7.60 10/20 Specimen Type: BLOOD No comment entered. Ordering Provider: Pablo STEWART Report Released Date/Time: Oct 21, 2023 02:23 PM Reporting Lab: [facility] [place] [address] [address] Performing Lab: [facility] [place] [address] [address] [facility] [place] [facility] CBC AND DIFF (AUTO) LYMPHOCYTE S [#/VOLUME] IN BLOOD BY AUTOMATED COUNT 1.05 10*3/uL 1.00 - 3.20 10/20 Specimen Type: BLOOD No comment entered. Ordering Provider: Pablo STEWART Report Released Date/Time: Oct 21, 2023 02:23 PM Reporting Lab: [facility] [place] [address] [address] Performing Lab: [facility] [place] [facility] [address] [facility] [address] [facility] [place] [facility] CBC AND DIFF (AUTO) EOSINOPHIL S [#/VOLUME] IN BLOOD BY AUTOMATED COUNT 0.16 10*3/uL 0.03 - 0.44 10/20 Specimen Type: BLOOD No comment entered. Ordering Provider: Pablo STEWART Report Released Date/Time: Oct 21, 2023 02:23 PM Reporting Lab: [facility] [place] [facility] [address] [facility] [address] Performing Lab: [facility] [place] [address] [address] [facility] [place] [facility] CBC AND DIFF (AUTO) BASOPHILS [#/VOLUME] IN BLOOD BY AUTOMATED COUNT 0.05 10*3/uL 0.01 - 0.13 10/20 Specimen Type: BLOOD No comment entered. Ordering Provider: Pablo STEWART Report Released Date/Time: Oct 21, 2023 02:23 PM Reporting Lab: [facility] [place] [address] [address] Performing Lab: [facility] [place] [address] [address] [facility] [place] [facility] CBC AND DIFF (AUTO) IMMATURE GRANULOCYT ES/100 LEUKOCYTES IN BLOOD BY AUTOMATED COUNT 0.2 0.0 - 0.7 10/20 Specimen Type: BLOOD No comment entered. Ordering Provider: Pablo STEWART Report Released Date/Time: Oct 21, 2023 02:23 PM Reporting Lab: [facility] [place] [address] [address] Performing Lab: [facility] [place] [address] [address] [facility] [place] [facility] CBC AND DIFF (AUTO) IMMATURE GRANULOCYT ES [#/VOLUME] IN BLOOD 0.01 10*3/uL 0.00 - 0.06 10/20 Specimen Type: BLOOD No comment entered. Ordering Provider: Pablo STEWART Report Released Date/Time: Oct 21, 2023 02:23 PM Reporting Lab: [facility] [place] [facility] [address] [facility] [address] Performing Lab: [facility] [place] [address] [address] [facility] [place] [facility] TSH THYROTROPI N [UNITS/VOL UME] IN SERUM OR PLASMA 1.46 u[IU]/mL 0.35 - 5.00 10/20 Specimen Type: SERUM No comment entered. Ordering Provider: Pablo STEWART Report Released Date/Time: Oct 21, 2023 02:15 PM Reporting Lab: [facility] [place] [address] [address] Performing Lab: [facility] [address] [address] [facility] [place] [facility] HIV 1&2 Ag/Ab SCREEN HIV 1+2 AB+HIV1 P24 AG [PRESENCE] IN SERUM OR PLASMA BY IMMUNOASSA Y NON-REAC TIVE 10/20 Specimen Type: SERUM No comment entered. Ordering Provider: Pablo STEWART Report Released Date/Time: Oct 21, 2023 02:15 PM Reporting Lab: [facility] [address] [address] Performing Lab: [facility] [address] [address] [facility] [place] [facility] HEPATITI S C ANTIBODY (HCV)-AR C HEPATITIS C VIRUS AB [PRESENCE] IN SERUM NON-REAC TIVE 10/20 Specimen Type: SERUM Comment: Hep C Ab: No HCV antibody detected. If recent infection is suspected or other evidence suggests HCV infection, consider HCV nucleic acid testing Ordering Provider: Pablo STEWART Report Released Date/Time: Oct 21, 2023 02:15 PM Reporting Lab: [facility] [address] [address] Performing Lab: [facility] [place] [facility] [address] [facility] [address] [facility] [place] [facility] BASIC METABOLI C PANEL (fasting ) UREA NITROGEN [MASS/VOLU ME] IN SERUM OR PLASMA 28 mg/dL 7 - 25 10/20 H Specimen Type: SERUM No comment entered. Ordering Provider: Pablo STEWART Report Released Date/Time: Oct 21, 2023 02:15 PM Reporting Lab: [facility] [place] [facility] [address] [facility] [facility] [id number] Performing Lab: [facility] [address] [facility] [id number] [facility] BASIC METABOLI C PANEL (fasting ) GLUCOSE [MASS/VOLU ME] IN SERUM OR PLASMA 147 mg/dL 65 - 100 10/20 H Specimen Type: SERUM No comment entered. Ordering Provider: Pablo STEWART Report Released Date/Time: Oct 21, 2023 02:15 PM Reporting Lab: [facility] [address] [facility] [address] Performing Lab: PR [facility] [address] [facility] [address] [facility] BASIC METABOLI C PANEL (fasting ) SODIUM [MOLES/VOL UME] IN SERUM OR PLASMA 139 mmol/L 135 - 145 10/20 Specimen Type: SERUM No comment entered. Ordering Provider: Pablo STEWART Report Released Date/Time: Oct 21, 2023 02:15 PM Reporting Lab: [place] [facility] [place] [facility] [address] [id number] Performing Lab: [place] [facility] [place] [facility] [address] [address] [facility] BASIC METABOLI C PANEL (fasting ) POTASSIUM [MOLES/VOL UME] IN SERUM OR PLASMA 4.4 mmol/L 3.5 - 5.0 10/20 Specimen Type: SERUM No comment entered. Ordering Provider: Pablo STEWART Report Released Date/Time: Oct 21, 2023 02:15 PM Reporting Lab: [facility] [address] [facility] [address] Performing Lab: [facility] [address] [facility] [address] [facility] BASIC METABOLI C PANEL (fasting ) CHLORIDE [MOLES/VOL UME] IN SERUM OR PLASMA 103 mmol/L 100 - 110 10/20 Specimen Type: SERUM No comment entered. Ordering Provider: Pablo STEWART Report Released Date/Time: Oct 21, 2023 02:15 PM Reporting Lab: [facility] [address] [address] Performing Lab: [facility] [address] [address] [facility] BASIC METABOLI C PANEL (fasting ) CARBON DIOXIDE, TOTAL [MOLES/VOL UME] IN SERUM OR PLASMA 27 meq/L 20 - 30 10/20 Specimen Type: SERUM No comment entered. Ordering Provider: Pablo STEWART Report Released Date/Time: Oct 21, 2023 02:15 PM Reporting Lab: [facility] [address] [address] Performing Lab: [facility] [address] [address] [facility] BASIC METABOLI C PANEL (fasting ) CREATININE [MASS/VOLU ME] IN SERUM OR PLASMA 1.74 mg/dL 0.50 - 1.40 10/20 H Specimen Type: SERUM No comment entered. Ordering Provider: Pablo STEWART Report Released Date/Time: Oct 21, 2023 02:15 PM Reporting Lab: [facility] [address] [address] Performing Lab: [facility] [address] [address] [facility] BASIC METABOLI C PANEL (fasting ) GLOMERULAR FILTRATION RATE/1.73 SQ M.PREDICTE D [VOLUME RATE/AREA] IN SERUM, PLASMA OR BLOOD BY CREATININE -BASED FORMULA (CKD-EPI 2020) 45 mL/min 60 10/20 L Specimen Type: SERUM No comment entered. Ordering Provider: Pablo STEWART Report Released Date/Time: Oct 21, 2023 02:15 PM Reporting Lab: [facility] [address] [address] Performing Lab: [facility] [address] [address] [facility] Vital Signs Combined list of inpatient and [...] months. 2) Encounters from the Department of Countercepts facilities going back up to 280 months. Location Location Details Encounter Type Encounter Number Reason For Visit Attending Provider ADM Date DC Date Status Disposition Source [facility] Out[facility] Encounter [id number] 02/26 [facility] [id number] 10/11 [facility]counter [id number] 10/11 [facility]counter [id number] 10/14 [facility] Encounter [id number] 10/14 [facility] OFFICE O/P NEW MOD 45 MIN [id number] Diagnos is: ICD-10- CM 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
MARILUZ STEWART 10/20 [facility] Encounter [id number] Diagnos is: ICD-10- CM E66.09 Other obesity due to excess calorie s
MANEKAS,DI NA L 11/17 [facility] En[facility] [id number] 11/25 [facility] Encounter [id number] Diagnos is: ICD-10- CM E66.09 Other obesity due to excess calorie s
MANEKAS,DI NA L 12/13 [facility] En[facility] [id number] 01/10 [facility] Encounter [id number] Diagnos is: ICD-10- CM E66.09 Other obesity due to excess calorie s
MANEKAS,DI NA L 01/13 [facility] Encounter [id number] 02/20 [facility] Encounter [id number] Diagnos is: ICD-10- CM E66.09 Other obesity due to excess calorie s
MANEKAS,DI NA L 02/20 [facility] En[facility] [id number] SARAH GARCIA ISTOPHER E 02/23 [facility] Out[facility] Encounter [id number] Diagnos is: ICD-10- CM E66.09 Other obesity due to excess calorie s
MANEKAS,DI NA L 03/13 [facility] Outpatient Encounter [id number] 03/27 [facility] Outpatient Encounter [id number] Diagnos is: ICD-10- CM E66.09 Other obesity due to excess calorie s
IAM LUDWIG NA L 04/14 [facility] Outpatient Encounter [id number] 05/02 [facility] Social History Combined list of available smoking, tobacco, and other social 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 Social History Type Response Date Comment [facility] e Tobacco smoking status [facility] VA-TOBACCO NEVER USED 10/15/2023 [facility]
--- OUTSIDE RECORDS SUMMARY | 2024-07-18 10:16 | XMS_ITS | Clinical Summary ---
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 Name Role Phone Gabby Kelly MD Primary Care Provider [phone] Allergies No known active allergies Medications Multiple Vitamins-Burket als (MULTIVITAMIN ADULT EXTRA C PO) Take 1 capsule by mouth 1 (one) time each day Active allopurinol (ZYLOPRIM) 300 MG tablet Take 1 tablet by mouth 1 (one) time each day Active aspirin (ST LORIN) 81 MG EC tablet Take 1 tablet by mouth 1 (one) time each day Active atorvastatin (LIPITOR) 10 MG tablet Take 1 tablet by mouth 1 (one) time each day Active buPROPion SR (WELLBUTRIN SR) 150 MG 12 hr tablet Take 1 tablet by mouth 1 (one) time each day Active losartan (COZAAR) 50 MG tablet Take 1 tablet by mouth 1 (one) time each day Active penicillin v potassium (VEETID) 250 MG tablet Take 1 tablet by mouth 2 (two) times a day Active ARIPiprazole (ABILIFY) 5 MG tablet Take 5 mg by mouth 1 (one) time each day Active DULoxetine (CYMBALTA) [address] capsule Take 60 mg by mouth 1 (one) time each day Active traZODone (DESYREL) 50 MG tablet Take 50 mg by mouth 1 (one) time each day 2 Active potassium citrate 10 MEQ (1080 MG) CR tablet Take 10 mEq by mouth 1 (one) time each day 2 Active pioglitazone (ACTOS) 15 MG tablet Take 15 mg by mouth 1 (one) time each day Active gabapentin (NEURONTIN) 800 MG tablet Take 800 mg by mouth in the morning and 800 mg at noon and 800 mg in the evening. 3 Active insulin aspart (NovoLOG FLEXPEN) 100 UNIT/ML injection Novolog FlexPen U-100 Insulin aspart 100 unit/mL (3 mL) subcutaneous INJECT 7 UNITS SUBCUTANEOUSLY 3 TIMES A DAY Active Lantus SoloStar 100 UNIT/ML injection INJECT 50 UNITS SUBCUTANEOUSLY EVERY EVENING 2 Active amLODIPine (NORVASC) 5 MG tablet Take 1 tablet (5 mg total) by mouth 1 (one) time each day 90 tablet 3 3 Active spironolactone (Aldactone) 25 MG tablet Take 1 tablet (25 mg total) by mouth 1 (one) time each day 30 tablet 11 3 Active Active Problems Problem Noted Date Diagnosed Date Chronic kidney disease stage 3 08/07/2020 Diabetes mellitus 08/07/2020 Hypertensive disorder 08/07/2020 Renal disorder due to type 2 diabetes mellitus 0 08/07/2020 Family History Medical History Relation Comments Diabetes Father 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 Father Diabetes Mother 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 Mother Diabetes Sibling 1 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 Sibling 2 Relation Status Comments Father Unknown Mother Unknown Sibling 1 Sibling 2 Social History Tobacco Use Types Packs/Day Years Used Date Smoking Tobacco: Never Smokeless Tobacco: Never Alcohol Use Standard Drinks/Week Comments Not Currently 0 (1 standard drink = 0.6 oz pure alcohol) Alcoholic Drinks/day: Occasional social drink Sex and Gender Information Value Date Recorded Sex Assigned at Not on file Legal Sex Male 4:56 PM EST Gender Identity Not on file Sexual Orientation Not on file Last Filed Vital Signs Vital Sign Reading Time Taken Comments Blood Pressure 137/64 02/03/2023 1:03 PM EDT Pulse 86 02/03/2023 1:03 PM EDT Temperature - - Respiratory Rate - - Oxygen Saturation 96% 02/03/2023 1:03 PM EDT Inhaled Oxygen Concentration - - Weight 138 kg (303 lb 6.4 oz) 02/03/2023 1:03 PM EDT Height 193 cm (6' 4 ) 08/05/2022 3:02 PM EST Body Mass Index 36.93 08/05/2022 3:02 PM EST Plan of Treatment Health Maintenance Due Date Last Done Comments Pneumococcal Vaccine: Pediat rics (0 to 5 Years) and At-Risk Patients (6 to 64 Years) (1 of 2 - PCV) 08/27/1971 Hepatitis B Vaccine (1 of 3 - 19+ 3-dose series) 08/26 Colorectal Cancer Screening: Annual FOBT 2014 Colorectal Cancer Screening: Colonoscopy 2014 Colorectal Cancer Screening: Sigmoidoscopy 2014 Diabetes: Hemoglobin A1C 07/28/2020 Diabetes: Ophthalmology Exam 07/28/2020 Diabetes: Pedal Pulse Checked 07/28/2020 Diabetes: Sensory Foot Exam 07/28/2020 Diabetes: Visual Foot Exam 07/28/2020 Influenza Vaccine (#1) 2024 Insurance [place] [facility] [address] [place] [facility] Care Teams 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
== END 2024-07-18 09:41 | disposition home or self-care (01) ==
PROVIDERS: PCP Internal Medicine; Visit Provider Internal Medicine Hypertension Specialist
DX: N18.30 Chronic kidney disease, stage 3 unspecified (principal)
CPT/HCPCS: 99214

== ENCOUNTER → 2024-07-18 09:25 | Outpatient (BNVA) | payer OTHER, SELFPAY | PROVIDERS: PCP Internal Medicine; Visit Provider Internal Medicine Hypertension Specialist ==

== ENCOUNTER 2024-08-23 15:02 | Outpatient (AMB) | payer OTHER, SELFPAY ==
--- NOTE | 2024-08-23 15:01 | MHC.OFFVIS ---
Vital Signs 08/23/24 15:02 Height 6 ft Weight 317 lb 4 oz BMI 43.0 BP 130/88 Blood Pressure Location Rt brachial Position Sitting Pulse 99 Pulse Source Pulse Oximeter Pulse Oximetry (%) 95 Oxygen Delivery Method Room Air Intake Visit Reasons: 1 yr f/u-Amnesia Intake Note: Patient presents to the office today for a 1 year follow up for amnesia. Titration study done on 06/19/24 and sleep study 07/12/24. Accompanied by: Spouse Allergies No Known Allergies Allergy (Verified 08/23/24 15:01) HPI Comments Details: 58 y/o male patient presents with his for follow up of KRISTIN and memory loss. His memory fluctuates He is compliant with CPAP, but uncomfortable . His recent titration showed he did well with BiPAP His last Hg A1C was 6.5 History from last visit ( 05/21)-He has issues with his mask fitting . I do not have his compliance report today . he uses it everyday.His diabetes is not well controlled. He still has cognitive issues, trouble remembering conversations, has trouble finding ways in his neighborhood. He is also confused by long instructions. Pt usually likes to play video games, but is having difficulty playing complex video games lately. Denies difficulty driving or repeating same questions over. states that patient still takes care of all financial stuff and is good at it. The lab result reviewed, B12 level was 1377 and vitamin D and TSH was WNL. The BUN and creatitine level was elevated, he is followed by nephrology. Pt has family hx of autism, and thinks that he has autism. 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 Diabetes 1.5, managed as type 1 Complex regional pain syndrome of both lower extremities Diabetic peripheral neuropathy Spondylosis of lumbar region without myelopathy or radiculopathy Surgical History S/P placement of nerve stimulator Hx of lithotripsy Hx of colonoscopy Family History Other Mental health disorder Social History Housing: Condominium Alcohol intake: never Patient Tobacco Use Status: Never used Tobacco e-Cigarette/Vaping Use: Never Used Second Hand Smoke Exposure: No service: No Current occupational status: disabled Cognitive needs: No Hearing needs: No Vision needs: Yes Physical Exam Vital Signs: Last Vital Signs Pulse 99 08/23/24 15:02 BP 130/88 08/23/24 15:02 Pulse Ox 95 08/23/24 15:02 Oxygen Delivery Method Room Air 08/23/24 15:02 BMI result Body Mass Index 43.0 Const General: cooperative and no acute distress Nutritional Appearance: obese Limitations: no limitations HEENT Head: Yes normocephalic Ears: hearing grossly normal bilaterally Neck Neck: Yes full ROM and Yes supple Resp Effort & Inspection: normal respiratory effort and able to speak in complete sentences Psych Appearance: grossly normal Mental Status: mental status grossly normal Affect: normal affect Attitude: cooperative Thought process: Normal thought process present Thought content: Normal thought content present Insight: Good insight present (Psych) Judgement: Good judgement present (Psych) Orientation What is the (year) (season) (date) (day) (month)?: year, season, date, day and month Where are we (state) (county) (town or city) (hospital) (floor)?: state, county, town or city, hospital/clinic and floor Registration Name of 3 unrelated objects clearly and slowly, then ask patient to repeat all 3 of them. (1st repeat determines score. Make sure they can repeat all three): object 1, object 2 and object 3 Attention & Calculation (CHOOSE ONE) Spell WORLD backwards (DLROW): 5 letters Recall Ask patient to repeat the 3 items from question #3.: object 2 and object 3 Language Show patient a wristwatch & ask what it is. Repeat for pencil.: watch and pencil Ask the patient to repeat the phrase 'No ifs, ands, or buts' after you.: correct Ask the patient to 'take a piece of paper with their right hand' 'fold paper in half' 'place paper on floor': take paper in right hand, fold paper in half and place paper on floor Print the sentence 'CLOSE YOUR EYES' on a piece. If patient actually closes eyes then score.: followed written direction Give patient a blank piece of paper & ask to write a sentence. Score if it contains a noun & verb.: sentence contains subject and verb Ask patient to copy figure of intersecting pentagons exactly. Score if all 10 angles & 2 intersects are included.: all 10 angles present & 2 are intersected Score Score: 29 Assessment & Plan Assessment & Plan (1) Obstructive sleep apnea: Comment: Severe degree of KRISTIN. AHI 47/hr with oxygen jeremiah was 75%. Code(s): G47.33 - Obstructive sleep apnea (adult) (pediatric) Category: Medical (2) Memory changes: Code(s): R41.3 - Other amnesia Category: Medical (3) Peripheral neuropathy: Code(s): G62.9 - Polyneuropathy, unspecified Category: Medical Qualifiers: Peripheral neuropathy type: polyneuropathy associated with underlying disease Qualified Code(s): G63 - Polyneuropathy in diseases classified elsewhere Plan A pres for BiPAP was sent ti [facility] Advised patient to check his blood sugar regularly to prevent hypoglycemia. Continue to use APAP [id number] until he gets CPAP Advised patient to engage more social and physical activity. will monitor his cognition Coding Level of Care Code Est Pt Level 4 (93859) Complex EM visit Add On G2211 Diagnoses Obstructive sleep apnea G47.33 Memory changes R41.3 Polyneuropathy associated with underlying disease G63 Peripheral neuropathy type: polyneuropathy associated with underlying disease
[2024-08-23 15:02] VITALS: BP 130/88; PULSE 99; O2SAT 95; BMI 43.0
--- OUTSIDE RECORDS SUMMARY | 2024-08-23 18:32 | XMS_ITS | Encounter Summary ---
Author Organization [facility] Address [address] [place] [address] Care Team Providers Care Private Equity Associate Name Role Phone Gabby Kelly Primary Care Provider Reason for Visit * Reason Comments New Patient * Consultation (Routine) - Pending Review Specialty Diagnoses / Procedures Referred By Jodie t Referred To Contact Pulmonary Diagnoses cough [facility] [address] [place] [id number] Phone: tel: fax: Referral ID Status Reason Start Date Expiration Date V isits Requested Visits Authorized [id number] Pending Review 03/08/2024 09/07/2025 6 6 Encounter Details Date Type Department Care Team (Late st Contact Info) Description 08/15/2024 11:00 AM EST Office Visit [facility] [address] [place] [id number] Relays Draftsperson: Vikram Pace MD [address] [place] [id number] Chronic cough (Primary Dx) Social History Tobacco Use Types Packs/Day Years Used Date Smoking Tobacco: Never Smokeless Tobacco: Never Tobacco Cessation:Counseling Given: Not Answered Alcohol Use Standard Drinks/Week Comments Not Currently 0 (1 standard drink = 0.6 oz pur e alcohol) Quit years ago pt stated. Sex and Gender Information Value Date Recorded Sex Assigned at Male 08/15/2024 9:58 AM EST Legal Sex Male 2:54 PM EDT Gender Identity Not on file Sexual Orientation Not on file documented as of this encounter Last Filed Vital Signs Vital Sign Reading Time Taken Comments Blood Pressure 119/77 08/15/2024 10:59 AM EST Pulse 98 08/15/2024 10:59 AM EST Temperature - - Respiratory Rate 18 08/15/2024 10:5 9 AM EST Oxygen Saturation 96% 08/15/2024 10: 59 AM EST Inhaled Oxygen Concentration - - Weight 142.3 kg (313 lb 12.8 oz) 2024 10:59 AM EST Height - - Body Mass Index - - documented in this encounter Progress Notes * Vikram Barbour MD - 08/15/2024 11:00 AM EST Images from the original note were not included. Note: This document is intended for record keeping, facilitation of care, and communication of casedata to affiliated medical data analyst. It is not written or constructed in a manner intended forpatient consumption, and therefore may include terminology that is not familiar to patients. Pleaseaddress any questions regarding the content of this note with the author or your care team. This document is also generated with the assistance of an automated dictation program, and may include inadvertent typographical/newspaper distributor supervisor errors until final editing and review is completed. [facility] Patient Name: Adama Ye DOS: 08/15/2024 CHIEF COMPLAINT: Cough HISTORY OF PRESENT ILLNESS: Very pleasant 58-year-old gentleman here in pulmonary clinic for evaluation of chronic cough. He isjoined by his today who aids in supplementing his history. He reports approximately 2 years ofcough. The cough has been consistently the same over those 2 years without significant variation based on season or location. It does vary somewhat based on time of day with most of the symptoms in the morning and in the early evening, but occurs sporadically as well. It is scantly productive of clear phlegm. It appears occasionally associated with postnasal drip. It is severe and pervasive, often resulting in gagging and retching with a prolonged coughing paroxysm. It is not associated dyspnea. He often feels that it it originates in the center of the chest. He has not been treated with any medication or regimen which appears to have been effective in improving his cough. He reports that it may have [facility]. His reports that it began shortly after he switched from drinking a lot of iced tea to drinking mostly water with a dyed flavor packet included. Otherwise he reports no specific inciting event or significant illness, medication change at the time of the onset of his cough. Additional dietary notes include lots of meat, lots of chocolate, no caffeine, no mint, no or minimal fried foods. He reports no symptomatic reflux. He has had an extensive evaluation prior to referral. He has been evaluated by otolaryngology as well as another dollyman. He he had no evidence of sinus disease. He had pulmonary function testing which were overall normal but did show some restriction likely related to body habitus. Notably no methacholine elation challenge was completed. He was treated briefly with a albuterol inhaler. He was treated briefly with a steroid nasal spray and potentially Atrovent nasal spray although both of these were approximately 1 month in duration. PAST MEDICAL HISTORY: DMII HTN HLD Obesity KRISTIN on CPAP CURRENT MEDICATIONS: Reviewed. DRUG ALLERGIES: None. SOCIAL HISTORY: Social History[1] Social history is reviewed with the patient. It is negative for exposures to TB. It is negative forconcerning environmental or occupational exposures except as noted above. No concerning occupational environmental exposures. He is retired. Cough is been pervasive in 2 homes no detectable evidence of mold or water damage. FAMILY HISTORY: NC. REVIEW OF SYSTEMS: Respiratory is as above. GI is as above for esophageal reflux and swallowing difficulty, CARDIAC is negative for chest pain. Other pertinent positives and negatives are as described above. 12 point ROS is otherwise negative except as noted. PHYSICAL EXAMINATION: VITAL SIGNS Blood pressure 119/77, pulse 98, resp. rate 18, weight (!) 142.3 kg (313 lb 12.8 oz), SpO2 96%. GENERAL: a well appearing patient with no evident dyspnea. NAD. He is obese. EYES: Pupils equally round and reactive light, conjunctive not injected, sclera non-icteric. ENT: No oral lesions, no oral thrush, dentition is good. NECK: Supple, trachea midline. LYMPH: No LAD in the head or neck. LUNGS: Normal excursion. No intercostal retractions. No dullness to percussion. Clear to auscultation, good air movement bilaterally. No crackles wheezing or rhonchi. CARDIAC: Regular rate rhythm, normal S1 and S2, no murmurs, pulses 2+ and symmetrical. No JVD, no peripheral edema. GI: Soft, non-distended, normal active bowel sounds, no evidence of hepatosplenomegaly, no tenderness to palpation EXT/MSK: No clubbing cyanosis. No cords. No signs of arthropathy or deformity. Full range of motionUE and LE, bilaterally. NEURO: Alert and oriented x 3. Non-focal. SKIN: no rashes on inspected skin surfaces. PSYCH: Normal mood and affect. DATA: Laboratory Data: All pertinent laboratory data is personally reviewed. Pulmonary Function Testin06/2023: From outside facility. Waggoner, lung volumes, and DLCO are all normal. No KARLIE completed. Chest Imaging: I personally reviewed the chest radiographic images. I have only the report of the CT obtained 12/2023, included below. Cardiac Diagnostic Studies: I have personally reviewed the available cardiac diagnostic studies. ASSESSMENT AND PLANS: 58-year-old gentleman with chronic cough. 1. Cough: Etiology of the patient's cough is uncertain at this time. Testing has been somewhat comprehensive although possibility of cough variant asthma has not been ruled out. Most concerning is his diet which is high in reflux provoking foods, and silent reflux may well be the primary underlyingcause of his cough. We discussed the pathophysiology of chronic cough in detail today with specificattention on reflux. I have supplied the patient with antireflux literature and we have reviewed the foods and habits in his diet which are likely the most problematic. I have recommended he discontinue use of his water additive, and eliminate chocolate from his diet. I believe it is reasonable to t ry to limit any contribution from airway hyperreactivity and ongoing postnasal drip. I have prescribed ipratropium nasal spray to be taken 2-4 times per day. I will also prescribe a combination LABA ICS inhaler which I have asked him to use for the next 3 months. He may benefit from referral to speech-language pathology for additional teaching on cough suppressive techniques. We will reconvene inapproximately 3 months to discuss the impact of these changes. I spent a total of 75 minutes on the date of encounter, which included: ?? Preparing to see the patient (e.g., review of test results) ?? Obtaining and/or reviewing separately obtained history ?? Performing a medically appropriate exam and/or evaluation ?? Counseling and educating the patient/family/caregiver ?? Documenting clinical information in the health record ?? Independently interpreting results (not separately reported) and communicating results to the patient/family/caregiver [1] Social History Socioeconomic History Marital status: Unknown Spouse name: Not on file Number of children: Not on file Years of education: Not on file Highest education level: Not on file Occupational History Not on file Tobacco Use Smoking status: Not on file Smokeless tobacco: Not on file Substance and Sexual Activity Alcohol use: Not on file Drug use: Not on file Sexual activity: Not on file Other Topics Concern Not on file Social History Narrative Not on file documented in this encounter Plan of Treatment Not on file documented as of this encounter Visit Diagnoses Diagnosis Chronic cough- Primary Cough documented in this encounter Care Teams Private Equity Associate Relationship Specialty Start Date End Date Gabby Kelly [facility] [place] [address] PCP - General Internal Medicine 08/15/24 documented as of this encounter
--- OUTSIDE RECORDS SUMMARY | 2024-08-23 18:32 | XMS_ITS | Clinical Summary ---
Author Organization [facility] Address [address] [place] [address] Care Team Providers Care Post Closer Name Role Phone Gabby Kelly Primary Care Provider [phone] Allergies No known active allergies Medications amLODIPine (NORVASC) 5 mg tablet SMARTSI Tablet(s) By Mouth Daily Active allopurinoL (ZYLOPRIM) 300 mg tablet SMARTSI Tablet(s) By Mouth Daily Active ARIPiprazole (ABILIFY) 5 mg tablet Take 10 mg by mouth once a day. 4 Active aspirin 81 mg capsule Take 81 mg by mouth. 4 Active atorvastatin (LIPITOR) 20 mg tablet Take 20 mg by mouth once a day. for 90 days 4 Active buPROPion XL (WELLBUTRIN XL) 300 mg tablet SMARTSI Tablet(s) By Mouth Every Morning Active DULoxetine DR (CYMBALTA) 60 mg capsule SMARTSI Capsule(s) By Mouth Every Morning Active FreeStyle Sonido 2 Sensor kit See admin instructions. 4 Active losartan (COZAAR) 100 mg tablet SMARTSI Tablet(s) By Mouth Daily Active penicillin V potassium 250 mg tablet SMARTSI Tablet(s) By Mouth Twice Daily Active pioglitazone (ACTOS) 15 mg tablet SMARTSI Tablet(s) By Mouth Daily Active potassium citrate ER (UROCIT-K) 10 mEq (1,080 mg) tablet SMARTSI Tablet(s) By Mouth Twice Daily Active spironolacton-h ydrochlorothiaz (ALDACTAZIDE) 25-25 mg per tablet SMARTSI Tablet(s) By Mouth Daily Active traZODone (DESYREL) 50 mg tablet SMARTSI-2 Tablet(s) By Mouth Every Night 4 Active gabapentin (NEURONTIN) 800 mg tablet Take 800 mg by mouth 3 times a day. Active ipratropium (ATROVENT) 0.06% nasal sprayIndication s:Chronic cough Administer 2 sprays into each nostril 4 times a day. 15 mL 5 5 Active budesonide-form oteroL (SYMBICORT) 160-4.5 mcg inhalerIndicati ons:Chronic cough Inhale 2 puffs by mouth 2 times a day. Rinse mouth with water after use. Do not swallow. 10.3 g 5 5 08/15/19 26 Active Encounters Date Type Department Care Team Description 08/15/2024 11:00 AM EST Office Visit [facility] [address] [place] [address] Perishable Freight Inspector: Vikram Pace MD Chronic cough (Primary Dx) 08/15/2024 10:00 AM EST - 08/15/2024 11:59 PM EST Hospital Encounter [facility] [address] [place] [address] Vikram Barbour MD Chronic cough Discharge Disposition: Home or Self Care (01) from Last 3 Months Social History Tobacco Use Types Packs/Day Years [...] - - Body Mass Index - - Plan of Treatment Health Maintenance Due Date Last Done Comments Cologuard 1965 Colon Cancer Screening 1965 Colonoscopy 1965 FOBT / Fit Test 1965 HIV Screening 1965 Hepatitis C Screening 1965 Sigmoidoscopy 1965 Hepatitis B Vaccines (1 of 3 - 19+ 3-dose series) 1984 Zoster Vaccines (1 of 2) 08/27/2015 Pneumococcal Vaccine: 50+ Ye ars (2 of 2 - PCV) 09/10/2019 09/09/2018, 09/03/2015 Alcohol/Substance Use Screening 06/28/2024 Depression Screening and Follow-Up 06/28/2024 Social Drivers of Health Татьяна ual Screening 06/28/2024 DTaP,Tdap,and Td Vaccines (3 - Td or Tdap) 01/31/2030 02/01/2020, 09/09/2018 RSV Vaccine (60+ years old a nd patients) (1 - 1-dose 75+ series) 2040 COVID-19 Vaccine Completed 03/30/2024, 05/2023, 03/09/2022, Additional history exists Influenza Vaccine Completed 03/30/2024, , 02/26/2023, Additional history exists Procedures * Due to [place] [employer] law, this organization might not be sharing negative HIV tests. Procedure Name Priority Date/Time Associated Diagnosis Comments XR CHEST 2 VW Routine 08/15/2024 10:05 AM EST Chronic cough from Last 3 Months Results * Due to [place] [employer] law, this organization might not be sharing negative HIV tests. * XR Chest 2 vw. Standard (08/15/2024 10:05 AM EST) Anatomical Region Laterality Modality Body Computed Radiogr aphy 08/16/2024 9:36 AM EST Impressions 08/16/2024 9:37 AM EST Heart size normal with high diaphragms and low lung volumes. No active airspace process. Neural electrode stimulators present in the lower dorsal spine. If this radiology report contains a blank impression section, it is an incomplete radiology report. ??Please contact the interpreting radiologist or applicable radiology division as soon as possible to obtain the completed interpretation. ? Workstation ID: [id number] Narrative 08/16/2024 9:37 AM EST COMPARISON: ??None FINDINGS AND Resulting Agency Comment [id number] Procedure Note Vikram Fiore MD - 08/16/2024 COMPARISON: None FINDINGS AND IMPRESSION: Heart size normal with high diaphragms and low lung volumes. No activeairspace process. Neural electrode stimulators present in the lower dorsalspine. If this radiology report contains a blank impression section, it is anincomplete radiology report. Please contact the interpreting radiologistor applicable radiology division as soon as possible to obtain thecompleted interpretation. Workstation ID: [id number] us Vikram Barbour MD IMG XR PROCEDURES Final Res ult from Last 3 Months Insurance [facility] Care Teams Post Closer Relationship Specialty Start Date End Date Gabby Kelly [address] [place] [address] PCP - General Internal Medicine 08/15/24
--- OUTSIDE RECORDS SUMMARY | 2024-08-23 18:32 | XMS_ITS | Referral Summary ---
Author Organization [facility] Address [address] [place] [address] Care Team Providers Care Automobile Mechanic Apprentice Name Role Phone Gabby Kelly Primary Care Provider [phone] Encounters Date Type Department Care Team Description 08/15/2024 10:00 AM EST - 08/15/2024 11:59 PM EST Hospital Encounter [facility] [address] [place] [address] Vikram Barbour MD Chronic cough Discharge Disposition: Home or Self Care () 08/15/2024 11:00 AM EST Office Visit [facility] [address] [place] [address] Systems Testing Laboratory Technician: Vikram Pace MD Chronic cough (Primary Dx) from Last 3 Months Allergies No known active allergies Medications amLODIPine [...] 10.3 g 5 5 08/15/19 26 Active Social History Tobacco Use Types Packs/Day Years [...] Mass Index - - Plan of Treatment Not on file Procedures * Due to [place] [employer] law, this organization might not be sharing negative HIV tests. Procedure Name Priority Date/Time Associated Diagnosis Comments XR CHEST 2 VW Routine 08/15/2024 10:05 AM EST Chronic cough from Last 3 Months Results * Due to [place] [employer] law, this organization might not be sharing [...] obtain the completed interpretation. ? Workstation ID: [id number] Narrative 08/16/2024 9:37 AM EST COMPARISON: ??None FINDINGS AND Resulting Agency Comment [id number] Procedure Note Vikram Fiore MD - 08/16/2024 [...] possible to obtain thecompleted interpretation. Workstation ID: [id number] us Vikram Barbour MD IMG XR PROCEDURES Final Res ult from Last 3 Months Insurance [facility] Care Teams Automobile Mechanic Apprentice Relationship Specialty Start Date End Date Gabby Kelly [address] [facility] [place] [address] PCP - General Internal Medicine 08/15/24
--- OUTSIDE RECORDS SUMMARY | 2024-08-23 18:32 | XMS_ITS | Clinical Summary ---
Author Organization [facility] Address [address] [facility] [address] [place] [address] Phone Care Team Providers Care Mail Processing Equipment Mechanic Name Role Phone Gabby Kelly MD Primary Care Provider [phone] Allergies No known active allergies Medications Multiple Vitamins-[place] als (MULTIVITAMIN ADULT EXTRA C PO) Take [...] Influenza Vaccine (#1) 2024 Insurance [place] [address] [place] [address] MEDICAID [facility] Care Teams Mail Processing Equipment Mechanic Relationship Specialty Start Date End Date Gabby Kelly MD [address] [place] [address] PCP - General 07/08/20
--- OUTSIDE RECORDS SUMMARY | 2024-08-23 18:32 | XMS_ITS | Continuity of Care Document ---
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 Ordering Provider: Pablo STEWART Report Released Date/Time: Oct 21, 2023 02:15 PM Reporting Lab: [facility] [address] [facility] [address] Performing Lab: [facility] [address] [address] [facility] URINALYS IS COLOR OF URINE Yellow 10/20 Specimen Type: URINE Comment: If Glucose = >500 and Ketones are positive, please alert the Physician. Ordering Provider: Pablo STEWART Report Released Date/Time: Oct 21, 2023 02:15 PM Reporting Lab: [facility] [place] [facility] [address] [facility] [address] Performing Lab: [facility] [place] [facility] [address] [facility] [address] [facility] [place] [facility] URINALYS IS APPEARANCE OF URINE Clear 10/20 Specimen Type: URINE Comment: If Glucose = >500 and Ketones are positive, please alert the Physician. Ordering Provider: Pablo STEWART Report Released Date/Time: Oct 21, 2023 02:15 PM Reporting Lab: [facility] [place] [address] [address] Performing Lab: [facility] [place] [facility] [address] [facility] [address] [facility] [place] [facility] URINALYS IS GLUCOSE [MASS/VOLU ME] IN URINE NEGATIVE mg/dL 10/20 Specimen Type: URINE Comment: If Glucose = >500 and Ketones are positive, please alert the Physician. Ordering Provider: Pablo STEWART Report Released Date/Time: Oct 21, 2023 02:15 PM Reporting Lab: [facility] [place] [facility] [address] [facility] [address] Performing Lab: [facility] [place] [facility] [address] [facility] [address] [facility] [place] [facility] URINALYS IS KETONES [MASS/VOLU ME] IN URINE BY TEST STRIP NEGATIVE mg/dL 10/20 Specimen Type: URINE Comment: If Glucose = >500 and Ketones are positive, please alert the Physician. Ordering Provider: Pablo STEWART Report Released Date/Time: Oct 21, 2023 02:15 PM Reporting Lab: [facility] [place] [address] [address] Performing Lab: [facility] [place] [facility] [address] [facility] [address] [facility] [place] [facility] URINALYS IS ERYTHROCYT ES [PRESENCE] IN URINE SEDIMENT BY LIGHT MICROSCOPY NEGATIVE mg/dL 10/20 Specimen Type: URINE Comment: If Glucose = >500 and Ketones are positive, please alert the Physician. Ordering Provider: Pablo STEWART Report Released Date/Time: Oct 21, 2023 02:15 PM Reporting Lab: [facility] [place] [facility] [address] [facility] [address] Performing Lab: [facility]ITALRRIVERVIEW [facility]ION[facility]ICAL CENTERTRN [facility]USETS [facility] [address] [facility] [address] [facility]ITALRGR[facility]OSPITALN [place] [facility] URINALYS IS PROTEIN [MASS/VOLU ME] IN URINE BY TEST STRIP 20 mg/dL 10/20 Specimen Type: URINE Comment: If Glucose = >500 and Ketones are positive, please alert the Physician. Ordering Provider: Pablo STEWART Report Released Date/Time: Oct 21, 2023 02:15 PM Reporting Lab: [facility] [place] [facility] [address] [facility] [address] Performing Lab: [facility] [place] [facility] [address] [facility] [address] [facility]ITALRGROVE HILL MEMORIAL HOSPITALN [facility]ENTERUSE [facility] URINALYS IS NITRITE [PRESENCE] IN URINE NEGATIVE mg/dL 10/20 Specimen Type: URINE Comment: If Glucose = >500 and Ketones are positive, please alert the Physician. Ordering Provider: Pablo STEWART Report Released Date/Time: Oct 21, 2023 02:15 PM Reporting Lab: [facility] [place] [facility] [address] [facility] [address] Performing Lab: [facility] [place] [facility] [address] [facility] [address] [facility]ITALRGROVE HILL MEM[facility]IAL HOSPITALN [facility] URINALYS IS BILIRUBIN. TOTAL [PRESENCE] IN URINE NEGATIVE mg/dL 10/20 Specimen Type: URINE Comment: If Glucose = >500 and Ketones are positive, please alert the Physician. Ordering Provider: Pablo STEWART Report Released Date/Time: Oct 21, 2023 02:15 PM Reporting Lab: [facility]ITALRRIVERVIEW REGION[facility] MED[facility] CENTERTRN [place] [facility] [address] [facility] [address] Performing Lab: [facility] [place] [facility] [address] [facility] [address] [facility]ITALRRIVERVIEW REGIONAL MEDICAL CENTERTRN [place] [facility] URINALYS IS SPECIFIC GRAVITY OF URINE BY REFRACTOME TRY 1.024 1.016 - 1.022 10/20 H Specimen Type: URINE Comment: If Glucose = >500 and Ketones are positive, please alert the Physician. Ordering Provider: Pablo STEWART Report Released Date/Time: Oct 21, 2023 02:15 PM Reporting Lab: [facility] [place] [address] [address] Performing Lab: [facility] TRN [facility]ENTERUSE[address] [address] [facility]ITALRRIVERVIEW REGIONAL MEDICAL CENTERTRN [facility] CENTERUSE [facility] URINALYS IS PH OF URINE BY TEST STRIP 6.0 5.0 - 9.0 10/20 Specimen Type: URINE Comment: If Glucose = >500 and Ketones are positive, please alert the Physician. Ordering Provider: Pablo STEWART Report Released Date/Time: Oct 21, 2023 02:15 PM Reporting Lab: [facility]ITALRRIVERVIEW REGION[facility] MEDICAL CENTERTRN [place] [address] [address] Performing Lab: [facility] TRN [facility]ENTERUSETS [facility] [address] [facility] [address] [facility] TRN [facility] CAMPUSCHUSE [facility] URINALYS IS UROBILINOG EN [MASS/VOLU ME] IN URINE BY TEST STRIP <2.0mg/d L <2.0 - 2.0 10/20 Specimen Type: URINE Comment: If Glucose = >500 and Ketones are positive, please alert the Physician. Ordering Provider: Pablo STEWART Report Released Date/Time: Oct 21, 2023 02:15 PM Reporting Lab: [facility]ITALRRIVERVIEW REGIONAL MEDICAL CENTERTRN [place] [facility] [address] [facility] [address] Performing Lab: [facility] [place] [facility] [address] [facility] [address] [facility] [place] [facility] URINALYS IS LEUKOCYTE ESTERASE [PRESENCE] IN URINE BY TEST STRIP NEGATIVE 10/20 Specimen Type: URINE Comment: If Glucose = >500 and Ketones are positive, please alert the Physician. Ordering Provider: Pablo STEWART Report Released Date/Time: Oct 21, 2023 02:15 PM Reporting Lab: [facility] [place] [facility] [address] [facility] [address] Performing Lab: [facility] [place] [facility] [address] [facility] [address] [facility] [place] [facility] MICROALB UMIN CREATINI NE RATIO PANEL MICROALBUM IN/CREATIN INE [MASS RATIO] IN URINE 6.2 mg/g 0 - 29.9 10/20 Specimen Type: URINE No comment entered. Ordering Provider: Pablo STEWART Report Released Date/Time: Oct 21, 2023 02:15 PM Reporting Lab: [facility] [place] [facility] [address] [facility] [address] Performing Lab: [facility] [place] [facility] [address] [facility] [address] [facility] [place] [facility] MICROALB UMIN CREATINI NE RATIO PANEL MICROALBUM IN [MASS/VOLU ME] IN URINE 1.5 mg/dL 10/20 Specimen Type: URINE No comment entered. Ordering Provider: Palbo STEWART Report Released Date/Time: Oct 21, 2023 02:15 PM Reporting Lab: [facility] [place] [facility] [address] [facility] [address] Performing Lab: [facility] [place] [facility] [address] [facility] [address] [facility] [place] [facility] MICROALB UMIN CREATINI NE RATIO PANEL CREATININE [MASS/VOLU ME] IN URINE 240.98 mg/dL 10/20 Specimen Type: URINE No comment entered. Ordering Provider: Pablo STEWART Report Released Date/Time: Oct 21, 2023 02:15 PM Reporting Lab: [facility] [place] [facility] [address] [facility] [address] Performing Lab: [facility] [place] [facility] [address] [facility] [address] [facility] [place] [facility] URIC ACID URATE [MASS/VOLU ME] IN SERUM OR PLASMA 5.4 mg/dL 3.5 - 7.2 10/20 Specimen Type: SERUM No comment entered. Ordering Provider: Pablo STEWART Report Released Date/Time: Oct 21, 2023 02:15 PM Reporting Lab: [facility] [place] [facility] [address] [facility] [address] Performing Lab: [facility] [place] [facility] [address] [facility] [address] [facility] [place] [facility] CBC AND DIFF (AUTO) LEUKOCYTES [#/VOLUME] IN BLOOD BY AUTOMATED COUNT 5.99 10*3/uL 4.50 - 11.00 10/20 Specimen Type: BLOOD No comment entered. Ordering Provider: Pablo STEWART Report Released Date/Time: Oct 21, 2023 02:23 PM Reporting Lab: [facility] [place] [facility] [address] [facility] [address] Performing Lab: [facility] [place] [facility] [address] [facility] [address] [facility] [place] [facility] CBC AND DIFF (AUTO) ERYTHROCYT ES [#/VOLUME] IN BLOOD BY AUTOMATED COUNT 4.47 10*6/uL 4.23 - 5.66 10/20 Specimen Type: BLOOD No comment entered. Ordering Provider: Pablo STEWART Report Released Date/Time: Oct 21, 2023 02:23 PM Reporting Lab: [facility] [place] [facility] [address] [facility] [address] Performing Lab: [facility] [place] [facility] [address] [facility] [address] [facility] [place] [facility] CBC AND DIFF (AUTO) HEMOGLOBIN [MASS/VOLU ME] IN BLOOD 14.0 g/dL 12.8 - 17 10/20 Specimen Type: BLOOD No comment entered. Ordering Provider: Pablo STEWART Report Released Date/Time: Oct 21, 2023 02:23 PM Reporting Lab: [facility] [place] [facility] [address] [facility] [address] Performing Lab: [facility] [place] [facility] [address] [facility] [address] [facility] [place] [facility] CBC AND DIFF (AUTO) HEMATOCRIT [VOLUME FRACTION] OF BLOOD BY AUTOMATED COUNT 40.0 39.2 - 50.4 10/20 Specimen Type: BLOOD No comment entered. Ordering Provider: Pablo STEWART Report Released Date/Time: Oct 21, 2023 02:23 PM Reporting Lab: [facility] [place] [facility] [address] [facility] [address] Performing Lab: [facility] [place] [facility] [address] [facility] [address] [facility] [place] [facility] CBC AND DIFF (AUTO) MCV [ENTITIC VOLUME] BY AUTOMATED COUNT 89.5 fL 82 - 99 10/20 Specimen Type: BLOOD No comment entered. Ordering Provider: Pablo STEWART Report Released Date/Time: Oct 21, 2023 02:23 PM Reporting Lab: [facility] [place] [facility] [address] [facility] [address] Performing Lab: [facility] [place] [facility] [address] [facility] [address] [facility] [place] [facility] CBC AND DIFF (AUTO) MCHC [MASS/VOLU ME] BY AUTOMATED COUNT 35.0 g/dL 30.8 - 35.1 10/20 Specimen Type: BLOOD No comment entered. Ordering Provider: Pablo STEWART Report Released Date/Time: Oct 21, 2023 02:23 PM Reporting Lab: [facility] [place] [facility] [address] [facility] [address] Performing Lab: [facility] [place] [facility] [address] [facility] [address] [facility] [place] [facility] CBC AND DIFF (AUTO) PLATELETS [#/VOLUME] IN BLOOD BY AUTOMATED COUNT 211 10*3/uL 140 - 360 10/20 Specimen Type: BLOOD No comment entered. Ordering Provider: Pablo STEWART Report Released Date/Time: Oct 21, 2023 02:23 PM Reporting Lab: [facility] [place] [facility] [address] [facility] [address] Performing Lab: [facility] [place] [address] [address] [facility] [place] [facility] CBC AND DIFF (AUTO) ERYTHROCYT E DISTRIBUTI ON WIDTH [RATIO] BY AUTOMATED COUNT 12.3 12.0 - 16.0 10/20 Specimen Type: BLOOD No comment entered. Ordering Provider: Pablo STEWART Report Released Date/Time: Oct 21, 2023 02:23 PM Reporting Lab: [facility] [place] [facility] [address] [facility] [address] Performing Lab: [facility] [place] [facility] [address] [facility] [address] [facility] [place] [facility] CBC AND DIFF (AUTO) MONOCYTES [#/VOLUME] IN BLOOD BY AUTOMATED COUNT 0.38 10*3/uL 0.30 - 1.10 10/20 Specimen Type: BLOOD No comment entered. Ordering Provider: Pablo STEWART Report Released Date/Time: Oct 21, 2023 02:23 PM Reporting Lab: [facility] [place] [facility] [address] [facility] [address] Performing Lab: [facility] [place] [address] [address] [facility] [place] [facility] CBC AND DIFF (AUTO) MCH [ENTITIC MASS] BY AUTOMATED COUNT 31.3 pg 26.2 - 32.6 10/20 Specimen Type: BLOOD No comment entered. Ordering Provider: Pablo STEWART Report Released Date/Time: Oct 21, 2023 02:23 PM Reporting Lab: [facility] [place] [facility] [address] [facility] [address] Performing Lab: [facility] [place] [facility] [address] [facility] [address] [facility] [place] [facility] CBC AND DIFF (AUTO) NEUTROPHIL S/100 LEUKOCYTES IN BLOOD BY AUTOMATED COUNT 72.5 43.7 - 75.8 10/20 Specimen Type: BLOOD No comment entered. Ordering Provider: Pablo STEWART Report Released Date/Time: Oct 21, 2023 02:23 PM Reporting Lab: [facility] [place] [facility] [address] [facility] [address] Performing Lab: [facility] [place] [facility] [address] [facility] [address] [facility] [place] [facility] CBC AND DIFF (AUTO) LYMPHOCYTE S/100 LEUKOCYTES IN BLOOD BY AUTOMATED COUNT 17.5 14.0 - 42.3 10/20 Specimen Type: BLOOD No comment entered. Ordering Provider: Pablo STEWART Report Released Date/Time: Oct 21, 2023 02:23 PM Reporting Lab: [facility] [place] [facility] [address] [facility] [address] Performing Lab: [facility] [place] [facility] [address] [facility] [address] [facility] [place] [facility] CBC AND DIFF (AUTO) MONOCYTES/ 100 LEUKOCYTES IN BLOOD BY AUTOMATED COUNT 6.3 5.1 - 13.7 10/20 Specimen Type: BLOOD No comment entered. Ordering Provider: Pablo STEWART Report Released Date/Time: Oct 21, 2023 02:23 PM Reporting Lab: [facility] [place] [facility] [address] [facility] [address] Performing Lab: [facility] [place] [facility] [address] [facility] [address] [facility] [place] [facility] CBC AND DIFF (AUTO) EOSINOPHIL S/100 LEUKOCYTES IN BLOOD BY AUTOMATED COUNT 2.7 0.4 - 6.8 10/20 Specimen Type: BLOOD No comment entered. Ordering Provider: Pablo STEWART Report Released Date/Time: Oct 21, 2023 02:23 PM Reporting Lab: [facility] [place] [address] [address] Performing Lab[facility] [place] [facility] [address] [facility] [address] [facility] [place] [facility] CBC AND DIFF (AUTO) BASOPHILS/ 100 LEUKOCYTES IN BLOOD BY AUTOMATED COUNT 0.8 0.1 - 2.0 10/20 Specimen Type: BLOOD No comment entered. Ordering Provider: Pablo STEWART Report Released Date/Time: Oct 21, 2023 02:23 PM Reporting Lab: [facility] [place] [address] [address] Performing Lab: [facility] [place] [address] [address] [facility] [place] [facility] CBC AND DIFF (AUTO) NEUTROPHIL S [#/VOLUME] IN BLOOD BY AUTOMATED COUNT 4.34 10*3/uL 2.20 - 7.60 10/20 Specimen Type: BLOOD No comment entered. Ordering Provider: Pablo STEWART Report Released Date/Time: Oct 21, 2023 02:23 PM Reporting Lab: [facility] [place] [address] [address] Performing Lab: [facility] [place] [address] [address] [facility] [place] [facility] CBC AND DIFF (AUTO) LYMPHOCYTE S [#/VOLUME] IN BLOOD BY AUTOMATED COUNT 1.05 10*3/uL 1.00 - 3.20 10/20 Specimen Type: BLOOD No comment entered. Ordering Provider: Pablo STEWART Report Released Date/Time: Oct 21, 2023 02:23 PM Reporting Lab: [facility] [place] [address] [address] Performing Lab[facility] [place] [facility] [address] [facility] [address] [facility] [place] [facility] CBC AND DIFF (AUTO) EOSINOPHIL S [#/VOLUME] IN BLOOD BY AUTOMATED COUNT 0.16 10*3/uL 0.03 - 0.44 10/20 Specimen Type: BLOOD No comment entered. Ordering Provider: Pablo STEWART Report Released Date/Time: Oct 21, 2023 02:23 PM Reporting Lab: [facility] [place] [facility] [address] [facility] [address] Performing Lab: [facility] [place] [address] [address] [facility] [place] [facility] CBC AND DIFF (AUTO) BASOPHILS [#/VOLUME] IN BLOOD BY AUTOMATED COUNT 0.05 10*3/uL 0.01 - 0.13 10/20 Specimen Type: BLOOD No comment entered. Ordering Provider: Pablo STEWART Report Released Date/Time: Oct 21, 2023 02:23 PM Reporting Lab: [facility] [place] [address] [address] Performing Lab: [facility] [place] [address] [address] [facility] [place] [facility] CBC AND DIFF (AUTO) IMMATURE GRANULOCYT ES/100 LEUKOCYTES IN BLOOD BY AUTOMATED COUNT 0.2 0.0 - 0.7 10/20 Specimen Type: BLOOD No comment entered. Ordering Provider: Pablo STEWART Report Released Date/Time: Oct 21, 2023 02:23 PM Reporting Lab: [facility] [place] [address] [address] Performing Lab: [facility] [place] [address] [address] [facility] [place] [facility] CBC AND DIFF (AUTO) IMMATURE GRANULOCYT ES [#/VOLUME] IN BLOOD 0.01 10*3/uL 0.00 - 0.06 10/20 Specimen Type: BLOOD No comment entered. Ordering Provider: Pablo STEWART Report Released Date/Time: Oct 21, 2023 02:23 PM Reporting Lab: [facility] [place] [facility] [address] [facility] [address] Performing Lab: [facility] [place] [address] [address] [facility] [place] [facility] TSH THYROTROPI N [UNITS/VOL UME] IN SERUM OR PLASMA 1.46 u[IU]/mL 0.35 - 5.00 10/20 Specimen Type: SERUM No comment entered. Ordering Provider: Pablo STEWART Report Released Date/Time: Oct 21, 2023 02:15 PM Reporting Lab: [facility] [place] [address] [address] Performing Lab: [facility] [address] [address] [facility] [place] [facility] HIV 1&2 Ag/Ab SCREEN HIV 1+2 AB+HIV1 P24 AG [PRESENCE] IN SERUM OR PLASMA BY IMMUNOASSA Y NON-REAC TIVE 10/20 Specimen Type: SERUM No comment entered. Ordering Provider: Pablo STEWART Report Released Date/Time: Oct 21, 2023 02:15 PM Reporting Lab: [facility] [address] [address] Performing Lab: [facility] [address] [address] [facility] [place] [facility] HEPATITI S C ANTIBODY (HCV)-AR C HEPATITIS C VIRUS AB [PRESENCE] IN SERUM NON-REAC TIVE 10/20 Specimen Type: SERUM Comment: Hep C Ab: No HCV antibody detected. If recent infection is suspected or other evidence suggests HCV infection, consider HCV nucleic acid testing Ordering Provider: Pablo STEWART Report Released Date/Time: Oct 21, 2023 02:15 PM Reporting Lab: [facility] [address] [address] Performing Lab: [facility] [place] [facility] [address] [facility] [address] [facility] [place] [facility] BASIC METABOLI C PANEL (fasting ) UREA NITROGEN [MASS/VOLU ME] IN SERUM OR PLASMA 28 mg/dL 7 - 25 10/20 H Specimen Type: SERUM No comment entered. Ordering Provider: Pablo STEWART Report Released Date/Time: Oct 21, 2023 02:15 PM Reporting Lab: [facility] [place] [facility] [address] [facility] [address] Performing Lab: [facility] [address] [facility] [address] [address] [facility] BASIC METABOLI C PANEL (fasting ) GLUCOSE [MASS/VOLU ME] IN SERUM OR PLASMA 147 mg/dL 65 - 100 10/20 H Specimen Type: SERUM No comment entered. Ordering Provider: Pablo STEWART Report Released Date/Time: Oct 21, 2023 02:15 PM Reporting [facility] [address] [facility] [address] Performing Lab: [facility] [address] [facility] [address] [facility] BASIC METABOLI C PANEL (fasting ) SODIUM [MOLES/VOL UME] IN SERUM OR PLASMA 139 mmol/L 135 - 145 10/20 Specimen Type: SERUM No comment entered. Ordering Provider: Pablo STEWART Report Released Date/Time: Oct 21, 2023 02:15 PM Reporting Lab: [facility] [place] [facility] [address] [facility] [phone] Performing Lab: [facility] [place] [facility] [address] [facility] [address] [facility] BASIC METABOLI C PANEL (fasting ) POTASSIUM [MOLES/VOL UME] IN SERUM OR PLASMA 4.4 mmol/L 3.5 - 5.0 10/20 Specimen Type: SERUM No comment entered. Ordering Provider: Pablo STEWART Report Released Date/Time: Oct 21, 2023 02:15 PM Reporting Lab: [facility] [address] [address] Performing Lab: [facility] [address] [facility] [address] [facility] BASIC METABOLI C PANEL (fasting ) CHLORIDE [MOLES/VOL UME] IN SERUM OR PLASMA 103 mmol/L 100 - 110 10/20 Specimen Type: SERUM No comment entered. Ordering Provider: Pablo STEWART Report Released Date/Time: Oct 21, 2023 02:15 PM Reporting Lab: [facility] [address] [address] Performing Lab: [facility] [address] [address] [facility] BASIC METABOLI C PANEL (fasting ) CARBON DIOXIDE, TOTAL [MOLES/VOL UME] IN SERUM OR PLASMA 27 meq/L 20 - 30 10/20 Specimen Type: SERUM No comment entered. Ordering Provider: Pablo STEWART Report Released Date/Time: Oct 21, 2023 02:15 PM Reporting Lab: [facility] [address] [address] Performing Lab: [facility] [address] [address] [facility] BASIC METABOLI C PANEL (fasting ) CREATININE [MASS/VOLU ME] IN SERUM OR PLASMA 1.74 mg/dL 0.50 - 1.40 10/20 H Specimen Type: SERUM No comment entered. Ordering Provider: Pablo STEWART Report Released Date/Time: Oct 21, 2023 02:15 PM Reporting Lab: [facility] [address] [address] Performing Lab: [facility] [address] [address] [facility] BASIC METABOLI C PANEL (fasting ) GLOMERULAR FILTRATION RATE/1.73 SQ M.PREDICTE D [VOLUME RATE/AREA] IN SERUM, PLASMA OR BLOOD BY CREATININE -BASED FORMULA (CKD-EPI 2020) 45 mL/min 60 10/20 L Specimen Type: SERUM No comment entered. Ordering Provider: Pablo STEWART Report Released Date/Time: Oct 21, 2023 02:15 PM Reporting Lab: [facility] [address] [facility] [address] Performing Lab: [facility] [address] [address] [facility] Vital Signs Combined list of inpatient and outpatient Vital Signs from Department of Defense and Veterans Affairs, ranging from 12 months to all on record, depending upon the facility. Vital Sign Value Date Comments Source WEIGHT 305 04/27/2024 15:05:35 [facility] BMI 38 kg/m2 04/27/2024 15:05:35 [facility] WEIGHT 304 03/24/2024 13:20:57 [facility] BMI 38 kg/m2 03/24/2024 13:20:57 [facility] WEIGHT 302 01/25/2024 14:53:18 [facility] BMI 38 kg/m2 01/25/2024 14:53:18 [facility] SYSTOLIC BLOOD PRESSURE 100 10/21/19 24 13:06:03 [facility] DIASTOLIC BLOOD PRESSURE 68 10/20/ 024 13:06:03 [facility] WEIGHT 301 10/21/2023 13:06:03 [facility] BMI 38 kg/m2 10/21/2023 13:06:03 [facility] [...] from Department of Veterans Affairs facilities going backup to the last 18 months, not all VA inpatient encounters are included; 2) Encounters from the Department of Defense facilities going backup to 280 months. Location Location Details Encounter Type Encounter Number Reason For Visit Attending Provider ADM Date DC Date Status Disposition Source [facility] Out[facility] Encounter [id number] 02/26 [facility] [id number] 10/11 [facility] [id number] 10/11 [facility] [id number] 10/14 [facility] En[facility] [id number] 10/14 [facility] OFFICE O/P NEW MOD 45 MIN [id number] Diagnos is: ICD-10- CM 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, unspeci MARILUZ Grider 10/20 [facility] Encounter [id number] Diagnos is: ICD-10- CM E66.09 Other obesity due to excess calorie s MANEKAS,DI NA L 11/17 [facility] En[facility] [id number] 11/25 [facility] Encounter [id number] Diagnos is: ICD-10- CM E66.09 Other obesity due to excess calorie s MANEKAS,DI NA L 12/13 [facility] En[facility] [id number] 01/10 [facility] En[facility] [id number] Diagnos is: ICD-10- CM E66.09 Other obesity due to excess calorie s MANEKAS,DI NA L 01/13 [facility] En[facility] [id number] 02/20 [facility] En[facility] [id number] Diagnos is: ICD-10- CM E66.09 Other obesity due to excess calorie s MANEKAS,DI NA L 02/20 [facility] Encounter [id number] SARAH GARCIA ISTOPHER E 02/23 [facility] Out[facility] Encounter [id number] Diagnos is: ICD-10- CM E66.09 Other obesity due to excess calorie s MANEKAS,DI NA L 03/13 [facility] Outpatient [facility]counter [id number] 03/27 [facility] Outpatient Encounter [id number] Diagnos is: ICD-10- CM E66.09 Other obesity due to excess calorie s IAM LUDWIG 04/14 [facility] Outpatient Encounter [id number] 05/02 [facility] Social History Combined list of available smoking, tobacco, and other social 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 Social History Type Response Date Comment Sourc e Tobacco smoking status [facility] NEVER USED 10/15/2023 [facility]
--- OUTSIDE RECORDS SUMMARY | 2024-08-23 18:32 | XMS_ITS | Encounter Summary ---
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 Name Role Phone Gabby Kelly Primary Care Provider [phone] Encounter Details Date Type Department Care Team (Latest Contact Info) Description 08/15/2024 10:00 AM EST - 08/15/2024 11:59 PM [facility] Hospital Encounter [facility] XRay [address] [place] [address] Vikram Barbour MD [address] [place] [address] Chronic cough Discharge Disposition: Home or Self Care () Social History Tobacco Use Types Packs/Day Years [...] on file documented as of this encounter Medications at Time of Discharge allopurinoL (ZYLOPRIM) 300 mg tablet SMARTSI Tablet(s) By Mouth Daily amLODIPine (NORVASC) 5 mg tablet SMARTSI Tablet(s) By Mouth Daily ARIPiprazole (ABILIFY) 5 mg tablet Take 10 mg by mouth once a day. 03/25/2024 aspirin 81 mg capsule Take 81 mg by mouth. 03/02/2024 atorvastatin (LIPITOR) 20 mg tablet Take 20 mg by mouth once a day. for 90 days 03/02/2024 budesonide-formo teroL (SYMBICORT) 160-4.5 mcg inhalerIndicatio ns:Chronic cough Inhale 2 puffs by mouth 2 times a day. Rinse mouth with water after use. Do not swallow. 10.3 g 5 08/15/2024 buPROPion XL (WELLBUTRIN XL) 300 mg tablet SMARTSI Tablet(s) By Mouth Every Morning DULoxetine DR (CYMBALTA) 60 mg capsule SMARTSI Capsule(s) By Mouth Every Morning FreeStyle Sonido 2 Sensor kit See admin instructions. 05/22/2024 gabapentin (NEURONTIN) 800 mg tablet Take 800 mg by mouth 3 times a day. ipratropium (ATROVENT) 0.06% nasal sprayIndications :Chronic cough Administer 2 sprays into each nostril 4 times a day. 15 mL 5 08/15/2024 losartan (COZAAR) 100 mg tablet SMARTSI Tablet(s) By Mouth Daily penicillin V potassium 250 mg tablet SMARTSI Tablet(s) By Mouth Twice Daily pioglitazone (ACTOS) 15 mg tablet SMARTSI Tablet(s) By Mouth Daily potassium citrate ER (UROCIT-K) 10 mEq (1,080 mg) tablet SMARTSI Tablet(s) By Mouth Twice Daily spironolacton-hy drochlorothiaz (ALDACTAZIDE) 25-25 mg per tablet SMARTSI Tablet(s) By Mouth Daily traZODone (DESYREL) 50 mg tablet SMARTSI-2 Tablet(s) By Mouth Every Night 10/14/2023 documented as of this encounter Plan of Treatment Not on file documented as of this encounter Procedures * Due to [place] [employer] law, this organization might not be sharing negative HIV tests. Procedure Name Priority Date/Time Associated Diagnosis Comments XR CHEST 2 VW Routine 08/15/2024 10:05 AM EST Chronic cough documented in this encounter Results * Due to [place] [employer] law, this organization might not be sharing [...] obtain the completed interpretation. ? Workstation ID: [id number] Narrative 08/16/2024 9:37 AM EST COMPARISON: ??None FINDINGS AND Resulting Agency Comment [id number] Procedure Note Vikram Fiore MD - 08/16/2024 [...] possible to obtain thecompleted interpretation. Workstation ID: [id number] us Vikram Barbour MD IMG XR PROCEDURES Final Res ult documented in this encounter Visit Diagnoses Diagnosis Chronic cough Cough documented in this encounter Care Teams Waste[employer] Treatment Plant Operator Relationship Specialty Start Date End Date Gabby Kelly [address] [place] [phone] PCP - General Internal Medicine 08/15/24 documented as of this encounter
== END 2024-08-23 15:26 | disposition home or self-care (01) ==
PROVIDERS: PCP Internal Medicine; Visit Provider Psychiatry & Neurology Neurology
DX: G47.33 Obstructive sleep apnea (adult) (pediatric) (principal); R41.3 Other amnesia; G63 Polyneuropathy in diseases classified elsewhere
CPT/HCPCS: 99214

== ENCOUNTER → 2024-08-23 15:02 | Outpatient (BNVA) | payer OTHER, SELFPAY | PROVIDERS: PCP Internal Medicine; Visit Provider Psychiatry & Neurology Neurology | DX: G47.33 Obstructive sleep apnea (adult) (pediatric) (principal); R41.3 Other amnesia; G63 Polyneuropathy in diseases classified elsewhere ==

== ENCOUNTER 2024-09-15 14:00 | Outpatient (AMB) | payer OTHER, SELFPAY ==
[2024-09-15 14:02] VITALS: BP 130/78; PULSE 90; O2SAT 93; BMI 42.9
--- NOTE | 2024-09-15 14:02 | A.OFFPC_ITS ---
Vital Signs 09/15/24 14:02 Height 6 ft Weight 316 lb BMI 42.9 BP 130/78 Blood Pressure Location Lt brachial Position Sitting Pulse 90 Pulse Source Pulse Oximeter Pulse Oximetry (%) 93 Oxygen Delivery Method Room Air Intake Visit Reasons: 4m follow up Accompanied by: Self / Same As Patient Allergies No Known Allergies Allergy (Verified 09/15/24 14:03) Medication List - Last Reconciled 09/15/24 by Gabby Kelly MD allopurinol 300 mg PO DAILY amlodipine 5 mg PO DAILY aripiprazole 5 mg PO DAILY aspirin (Erick Low Dose Aspirin) 81 mg PO DAILY 90 days atorvastatin 20 mg PO DAILY 90 days blood sugar diagnostic ([employer] Ultra Test strips) Test blood sugar once a day bupropion HCl XL 300 mg PO QAM duloxetine 60 mg PO BEDTIME flash glucose scanning reader ([employer] Sonido 2 [place]) As directed flash glucose sensor ([employer] Sonido 2 Sensor kit) As directed Lantus Solostar U-100 Insulin (insulin glargine) 90 units (0.9 mL) subcut QPM 90 days NS losartan 100 mg PO DAILY pen needle, diabetic ([employer] Pen Needle) As directed penicillin V potassium 250 mg PO BID 90 days pioglitazone 15 mg PO DAILY pioglitazone 15 mg PO DAILY potassium citrate ER 20 mEq (2 x 10 mEq (1,080 mg)) PO BID 90 days spironolacton-hydrochlorothiaz 25-25 mg 1 tab PO DAILY trazodone 100 mg PO BEDTIME Tobacco use date assessed: 09/15/24 Dental Screening Dental Screen Date: 09/15/24 Did you have a dental visit in the last 12 months?: Yes Did you have a dental problem in the last 6 months where you did not have access to dental care?: No Was dental information given to patient?: Patient has dentist HPI 4m follow up HPI Details History - The patient is a 59-year-old male pres enting with a follow-up for Type 2 Diabetes Mellitus, low back pain, hypertension, and other chronic medical issues. - Type 2 Diabetes Mellitus: The patient has successfully adjusted his insulin dosage to achieve improved blood glucose control. The adjustment from 98 units to 80 units has increased morning glucose readings to approximately 100 mg/dL. - Low Back Pain: The patient experienced a flare-up due to an acute twisting movement, worsening his chronic low back pain. He reports minimal relief and continues to have difficulty with mobility, specifically with activities that involve bending. He has appointment coming up with a paint formulator - Depression: Managed with veronique Waldrop the patient reports as effective in controlling his symptoms. Patient is established with psychiatrist and a counselor - Obesity: The patient?s weight remains a concern, with continued increases despite lifestyle interventions. A therapeutic trial of a GLP-1 receptor agonist is being considered. - Chronic Cellulitis: The patient is on long-term antimicrobial treatment; current monitoring reveals stability in previously affected sites. Through Infectious Disease - Chronic Kidney Disease: An improvement in kidney function has been noted. The patient continues to see a urology physician for management. - Gastroesophageal Reflux Disease (GERD) : Persistent symptoms have been unresponsive to prior treatment efforts. Problem List - Type 2 Diabetes Mellitus - Low Back Pain - 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 - Depression - Obesity - Chronic Cellulitis - Chronic Kidney Disease - Acid Reflux Patient Instructions - Continue with current insulin regimen and monitor blood glucose levels re gularly. 80 units long-acting insulin once a day - Avoid activities that involve bending forward or lifting to prevent aggravation of low back pain. Consider alternative methods to perform household tasks that minimize back strain. - Continue taking Abilify for depression management and report any mood changes. - Explore dietary modifications with inc reased fruits and vegetables to address weight management. - Follow up with the infectious disease specialist for cellulitis management as scheduled. - Monitor kidney function as advised by your kidney specialist. - Continue current GERD management plan and report any persistent or worsening symptoms. - chronic cough, patient has been evalua bhumi by health program specialist in [place] and it was thought that his cough is secondary to GERD - Check with the pharmacy regarding the coverage of the prescribed Zepbound injection and monitor for side effects. - Schedule follow-up appointments as dir ected by your healthcare providers. Review of Systems - General: No fever no chills - Neurological: No headaches no dizziness - Ear nose throat: No sore throat no hearing difficulty no ear pain - Cardiovascular: No syncope, no chest pain, no palpitations - Gastrointestinal: No nausea vomiting or diarrhea - Endocrine: No polyuria polydipsia no heat intolerance - Genitourinary: No dysuria , no blood in urine Physical Exam - General: No acute distress - HEENT: No acute findings - Neck: Supple - Respiratory system: Able to talk in f ull sentences, no audible wheeze - cardiovascular: S1-S2 regular in rate and rhythm - Gastrointestinal: No pain - Extremities: No new findings - ADVERTISING SOLICITOR: Alert awake oriented x3 motor se nsory intact - Skin: Normal turgor PFSH Medical History Peripheral neuropathy Obstructive sleep apnea Restless legs syndrome (RLS) Obstructive sleep apnea Chronic pain syndrome Ureteral calculus Fatty liver Gout Kidney stones Depression, major, recurrent Lipid disorder 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, essential 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 terminal manager (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 Diabetes 1.5, managed as type 1 Complex regional pain syndrome of both lower extremities Diabetic peripheral neuropathy Spondylosis of lumbar region without myelopathy or radiculopathy Surgical History S/P placement of nerve stimulator Hx of lithotripsy Hx of colonoscopy Family History Other Mental health disorder Social History Housing: Condominium Alcohol intake: never Patient Tobacco Use Status: Never used Tobacco e-Cigarette/Vaping Use: Never Used Second Hand Smoke Exposure: No service: No Current occupational status: disabled Cognitive needs: No Hearing needs: No Vision needs: Yes Questionnaire PHQ-9 Over the last 2 weeks, how often have you been bothered by any of the following problems? 1. Little interest or pleasure in doing things: several days 2. Feeling down, depressed, or hopeless: several days 3. Trouble falling or staying asleep, or sleeping too much: more than half the days 4. Feeling tired or having little energy: several days 5. Poor appetite or overeating: not at all 6. Feeling bad about yourself - or that you are a failure or have let yourself or your family down: not at all 7. Trouble concentrating on things, such as reading the newspaper or watching television: several days 8. Moving or speaking so slowly that other people could have noticed. Or the opposite - being so fidgety or restless that you have been moving around a lot more than usual: not at all 9. Thoughts that you would be better off or of hurting yourself in some way: not at all Total score: 6 Depression Screening Interpretation: Negative Depression Screening Done: Yes 71496 - PHQ-9 Billing: Yes Source: Developed by Drs. Ken Padilla, Vandana Magallon, Janusz Barlow and colleagues, with an educational nick from [employer]. Thrive Questionnaire Date Thrive assessed: 09/15/24 I am a: Patient What is your living situation today?: I have a steady place to live Within the past 12 months, did the food you bought not last and you didn't have the money to get more?: Never true Within the past 12 months, did you worry whether your food would run out before you got money to buy more?: Never true Do you have trouble paying for medicines?: No Do you have trouble getting transportation to medical appointments?: No Do you have trouble paying your heating and electricity bill?: No Do you have trouble taking care of your child, family member or friend?: I choose not to answer this question Do you have trouble with day-to-day activities such as bathing, preparing meals, shopping, managing finances, etc.?: No Are you currently unemployed and looking for a job?: No Are you interested in more education?: No Please select the resources that you would like help with: None Currently or been in a relationship where the following occur: No concerns reported THRIVE Score: 0 AUDIT C Alcohol Use Questionnaire (AUDIT-C) 1. How often do you have a drink containing alcohol?: Never 3. How often do you have six or more drinks on one occasion?: Never Total Score: 0 Score Reviewed/Action Taken: Yes CRISTOBAL-7 AMB Questionnaire CRISTOBAL-7 Date CRISTOBAL - 7 assessed: 09/15/24 Feeling nervous, anxious, or on edge: 1 = Several days Not being able to stop or control worryin = Several days Worrying too much about different things: 1 = Several days Trouble relaxin = Several days Being so restless that it is hard to sit still: 1 = Several days Becoming easily annoyed or irritable: 0 = Not at all Feeling afraid as if something awful might happen: 0 = Not at all Total CRISTOBAL-7 score (0-4 normal; 5-9 mild; 10-14 moderate; 15-21 severe): 5 Source: Developed by Vandana Barroso Naun, Janusz Barlow and colleagues, with an educational nick from [employer]. CRISTOBAL-7 Assessment Billing CRISTOBAL-7 Assessment Tool: CRISTOBAL-7 Assessment 59068 Physical exam (Primary Care) Vital Signs: Last Vital Signs Pulse 90 09/15/24 14:02 BP 130/78 09/15/24 14:02 Pulse Ox 93 09/15/24 14:02 Oxygen Delivery Method Room Air 09/15/24 14:02 BMI result Body Mass Index 42.9 Tobacco/Smoking Status: Tobacco use Status Tobacco use date assessed 09/15/24 09/15/24 14:08 Patient Tobacco Use Status Never used Tobacco 09/15/24 14:08 e-Cigarette/Vaping Use Never Used 09/15/24 14:08 PHQ-9: PHQ-9 Score PHQ-9: Total score 6 09/15/24 15:16 Depression Screening Interpretation: Negative Thrive Assessment: Date of Thrive Assessment Date Thrive assessed 09/15/24 09/15/24 14:08 Currently or been in a relationship where the following occur: No concerns reported Coding Level of Care Code Est Pt Level 5 (46615) Diagnoses Diabetes 1.5, managed as type 1 E13.9 Diabetic peripheral neuropathy E11.42 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 Z79.4 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, essential I10 Lipid disorder E78.9 Moderate episode of recurrent major depressive disorder F33.1 Active/Remission status: currently active Major depression episode severity: moderate Obstructive sleep apnea G47.33 Chronic gout without tophus, unspecified cause, unspecified site [id number] Chronicity: chronic Gout etiology: unspecified cause Gout site: unspecified site Presence of tophus: without tophus Elevated serum creatinine R79.89 Memory changes R41.3 Diabetic nephropathy associated with diabetes mellitus due to underlying condition E08.21 Diabetes mellitus type: due to underlying condition Morbid obesity due to excess calories E66.01 Chronic cough R05.3 Additional Codes CRISTOBAL-7 Assessment Billing - CRISTOBAL-7 Assessment Tool: CRISTOBAL-7 Assessment 14128 ([id number]) PHQ-9 - 91284 - PHQ-9 Billing: Yes ([id number]) Time Spent (min) 40 Comment [id number] with the patient and his significant other, coordination of care Assessment & Plan Assessment & Plan (1) Diabetes 1.5, managed as type 1: Code(s): E13.9 - Other specified diabetes mellitus without complications Category: Medical (2) Diabetic peripheral neuropathy: Code(s): E11.42 - Type 2 diabetes mellitus with diabetic polyneuropathy Category: Medical (3) assistant terminal manager (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: Code(s): Z79.4 - 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 Category: Medical (4) 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, essential: Code(s): I10 - Essential (primary) hypertension Category: Medical (5) Lipid disorder: Code(s): E78.9 - Disorder of lipoprotein metabolism, unspecified Category: Medical (6) Depression, major, recurrent: Code(s): F33.9 - Major depressive disorder, recurrent, unspecified Category: Medical Qualifiers: Active/Remission status: currently active Major depression episode severity: moderate Qualified Code(s): F33.1 - Major depressive disorder, recurrent, moderate (7) Obstructive sleep apnea: Comment: Severe degree of KRISTIN. AHI 47/hr with oxygen jeremiah was 75%. Code(s): G47.33 - Obstructive sleep apnea (adult) (pediatric) Category: Medical (8) Gout: Code(s): M10.9 - Gout, unspecified Category: Medical Qualifiers: Chronicity: chronic Gout etiology: unspecified cause Gout site: unspecified site Presence of tophus: without tophus Qualified Code(s): M1A.9XX0 - Chronic gout, unspecified, without tophus (tophi) (9) Elevated serum creatinine: Code(s): R79.89 - Other specified abnormal findings of blood chemistry Category: Medical (10) Memory changes: Code(s): R41.3 - Other amnesia Category: Medical (11) Diabetic nephropathy: Code(s): E11.21 - Type 2 diabetes mellitus with diabetic nephropathy Category: Medical Qualifiers: Diabetes mellitus type: due to underlying condition Qualified Code(s): E08.21 - Diabetes mellitus due to underlying condition with diabetic nephropathy (12) Morbid obesity due to excess calories: Code(s): E66.01 - Morbid (severe) obesity due to excess calories Category: Medical (13) Chronic cough: Code(s): R05.3 - Chronic cough Category: Medical Plan History - The patient is a 59-year-old male with a history of gout, memory change, mostly sedentary, lipid disorder, depression, anxiety, hypertension difficulty sleeping presenting with a follow-up for Type 2 Diabetes Mellitus, low back pain, hypertension, and other chronic medical issues. - Type 2 Diabetes Mellitus: The patient has successfully adjusted his insulin dosage to achieve improved blood glucose control. The adjustment from 98 units to 80 units has increased morning glucose readings to approximately 100 mg/dL. - Low Back Pain: The patient experienced a flare-up due to an acute twisting movement, worsening his chronic low back pain. He reports minimal relief and continues to have difficulty with mobility, specifically with activities that involve bending. He has appointment coming up with a paint formulator - Depression: Managed with Abilify, which the patient reports as effective in controlling his symptoms. Patient is established with psychiatrist and a counselor - Obesity: The patient?s weight remains a concern, with continued increases despite lifestyle interventions. A therapeutic trial of a GLP-1 receptor agonist is being considered. - Chronic Cellulitis: The patient is on long-term antimicrobial treatment; current monitoring reveals stability in previously affected sites. Through Infectious Disease - Chronic Kidney Disease: An improvement in kidney function has been noted. The patient continues to see a urology physician for management. - Gastroesophageal Reflux Disease (GERD): Persistent symptoms have been unresponsive to prior treatment efforts. Problem List - Type 2 Diabetes Mellitus - Low Back Pain - 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 - Depression - Obesity - Chronic Cellulitis - Chronic Kidney Disease - Acid Reflux Patient Instructions - Continue with current insulin regimen and monitor blood glucose levels regularly. 80 units long-acting insulin once a day - Avoid activities that involve bending forward or lifting to prevent aggravation of low back pain. Consider alternative methods to perform household tasks that minimize back strain. - Continue taking Abilify for depression management and report any mood changes. - Explore dietary modifications with increased fruits and vegetables to address weight management. - Follow up with the infectious disease specialist for cellulitis management as scheduled. - Monitor kidney function as advised by your kidney specialist. - Continue current GERD management plan and report any persistent or worsening symptoms. - chronic cough, patient has been evaluated by health program specialist in [place] and it was thought that his cough is secondary to GERD - Check with the pharmacy regarding the coverage of the prescribed Zepbound injection and monitor for side effects. - Schedule follow-up appointments as directed by your healthcare providers. Medications: New tirzepatide (weight loss) (Zepbound) for 4 weeks 2.5 mg (0.5 mL) subcut QWEEK 2 mL 0RF
--- OUTSIDE RECORDS SUMMARY | 2024-09-15 16:18 | XMS_ITS | Encounter Summary ---
Author Organization [facility] Address [address] [place] [address] Care Team Providers Care C Architect Name Role Phone Gabby Kelly Primary Care Provider [phone] Encounter Details Date Type Department Care Team (Latest Contact Info) Description 08/15/2024 10:00 AM EST - 08/15/2024 11:59 PM [facility] Hospital Encounter [facility] XRay [address] [place] [address] Vikram Barbour MD [address] [place] [address] Chronic cough Discharge Disposition: Home or Self [...] of this encounter Procedures * Due to [place] [employer] law, this organization might not be sharing negative HIV tests. Procedure Name Priority Date/Time Associated Diagnosis Comments XR CHEST 2 VW Routine 08/15/2024 10:05 AM EST Chronic cough documented in this encounter Results * Due to [place] [employer] law, this organization might not be sharing [...] obtain the completed interpretation. ? Workstation ID: [id number] Narrative 08/16/2024 9:37 AM EST COMPARISON: ??None FINDINGS AND Resulting Agency Comment [id number] Procedure Note Vikram Fiore MD - 08/16/2024 [...] possible to obtain thecompleted interpretation. Workstation ID: [id number] us Vikram Barbour MD IMG XR PROCEDURES Final Res ult documented in this encounter Visit Diagnoses Diagnosis Chronic cough Cough documented in this encounter Care Teams C Architect Relationship Specialty Start Date End Date Gabby Kelly [address] [place] [id number] PCP - General Internal Medicine 08/15/24 documented as of this encounter
--- OUTSIDE RECORDS SUMMARY | 2024-09-15 16:18 | XMS_ITS | Clinical Summary ---
Author Organization [facility] Address [address] [place] [address] Phone Care Team Providers Care Freight Checker Name Role Phone Gabby Kelly MD Primary Care Provider Allergies No known active allergies Medications Multiple Vitamins-Swain als (MULTIVITAMIN ADULT EXTRA C PO) Take [...] Influenza Vaccine (#1) 2024 Insurance MEDICAID [place] [facility] [place] [address] [place] [facility] Care Teams Freight Checker Relationship Specialty Start Date End Date Gabby Kelly MD [address] [place] [address] PCP - General 07/08/20
--- OUTSIDE RECORDS SUMMARY | 2024-09-15 16:18 | XMS_ITS | Clinical Summary ---
Author Organization [facility] Address [address] [place] [address] Care Team Providers Care Classified Ad Taker Name Role Phone Gabby Kelly Primary Care Provider [phone] Allergies No known active allergies Medications amLODIPine [...] Description 08/15/2024 11:00 AM EST Office Visit [facility] [address] [place] [address] Meat And Poultry Inspector: Vikram Pace MD Chronic cough (Primary Dx) 08/15/2024 10:00 AM EST - 08/15/2024 11:59 PM EST Hospital Encounter [facility] XRay [address] [place] [address] Vikram Barbour MD Chronic cough Discharge Disposition: [...] Additional history exists Procedures * Due to [place] [employer] law, this organization might not be sharing negative HIV tests. Procedure Name Priority Date/Time Associated Diagnosis Comments XR CHEST 2 VW Routine 08/15/2024 10:05 AM EST Chronic cough from Last 3 Months Results * Due to [place] [employer] law, this organization might not be sharing [...] obtain the completed interpretation. ? Workstation ID: [id number] Narrative 08/16/2024 9:37 AM EST COMPARISON: ??None FINDINGS AND Resulting Agency Comment [id number] Procedure Note Vikram Fiore MD - 08/16/2024 [...] possible to obtain thecompleted interpretation. Workstation ID: [id number] us Vikram Barbour MD IMG XR PROCEDURES Final Res ult from Last 3 Months Insurance [facility] Care Teams Classified Ad Taker Relationship Specialty Start Date End Date Gabby Kelly [address] [place] [address] PCP - General Internal Medicine 08/15/24
--- OUTSIDE RECORDS SUMMARY | 2024-09-15 16:18 | XMS_ITS | Continuity of Care Document ---
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 [address] [facility] HEPATITI S B SURFACE ANTIBODY (HBsAb)- WH HEPATITIS B VIRUS SURFACE AB [PRESENCE] IN SERUM BY IMMUNOASSA Y Non Reactive 10/20 Specimen Type: SERUM No comment entered. Ordering Provider: Pablo STEWART Report Released Date/Time: Oct 21, 2023 02:15 PM Reporting Lab: [facility] [address] [facility] [address] Performing Lab: [facility] [address] [facility] [address] [facility] HEMOGLOB IN A1C PANEL HEMOGLOBIN A1C/HEMOGL OBIN.TOTAL IN BLOOD BY HPLC 6.1 4.0 - 5.6 10/20 H Specimen Type: BLOOD Comment: Values obtained from A1C measurement s can vary. For atypical A1C assays, a reported value of 7.0 could actually be between 6.72 and 7.28 if measured by a reference method. A reported value of 9.0 could actually be between 8.73 and 9.27. Ref: http://www. ngsp.org/[place] Pdata.asp Ordering Provider: Pablo STEWART Report Released Date/Time: Oct 21, 2023 02:15 PM Reporting Lab: [facility] [place] [address] [address] Performing Lab: [facility] [place] [address] [address] [facility] [place] [facility] URINALYS IS COLOR OF URINE Yellow 10/20 Specimen Type: URINE Comment: If Glucose = >500 and Ketones are positive, please alert the Physician. Ordering Provider: Pablo STEWART Report Released Date/Time: Oct 21, 2023 02:15 PM Reporting Lab: [facility] [place] [address] [address] Performing Lab: [facility] [place] [address] [address] [facility] [place] [facility] URINALYS IS APPEARANCE OF URINE Clear 10/20 Specimen Type: URINE Comment: If Glucose = >500 and Ketones are positive, please alert the Physician. Ordering Provider: Pablo STEWART Report Released Date/Time: Oct 21, 2023 02:15 PM Reporting Lab: [facility] [place] [address] [address] Performing Lab: [facility] [place] [address] [address] [facility] [place] [facility] URINALYS IS GLUCOSE [MASS/VOLU ME] IN URINE NEGATIVE mg/dL 10/20 Specimen Type: URINE Comment: If Glucose = >500 and Ketones are positive, please alert the Physician. Ordering Provider: Pablo STEWART Report Released Date/Time: Oct 21, 2023 02:15 PM Reporting Lab: [facility] [place] [facility] [address] [facility] [address] Performing Lab: [facility] [place] [facility] [address] [facility] [address] [facility] [place] [facility] URINALYS IS KETONES [MASS/VOLU ME] IN URINE BY TEST STRIP NEGATIVE mg/dL 10/20 Specimen Type: URINE Comment: If Glucose = >500 and Ketones are positive, please alert the Physician. Ordering Provider: Pablo STEWART Report Released Date/Time: Oct 21, 2023 02:15 PM Reporting Lab: [facility] [place] [address] [address] Performing Lab: [facility] [place] [address] [address] [facility] [place] [facility] URINALYS IS ERYTHROCYT ES [PRESENCE] IN URINE SEDIMENT BY LIGHT MICROSCOPY NEGATIVE mg/dL 10/20 Specimen Type: URINE Comment: If Glucose = >500 and Ketones are positive, please alert the Physician. Ordering Provider: Pablo STEWART Report Released Date/Time: Oct 21, 2023 02:15 PM Reporting Lab: [facility] [place] [address] [address] Performing Lab: [facility] [place] [address] [address] [facility] [place] [facility] URINALYS IS PROTEIN [MASS/VOLU ME] IN URINE BY TEST STRIP 20 mg/dL 10/20 Specimen Type: URINE Comment: If Glucose = >500 and Ketones are positive, please alert the Physician. Ordering Provider: Pablo STEWART Report Released Date/Time: Oct 21, 2023 02:15 PM Reporting Lab: [facility] [place] [address] [address] Performing Lab: [facility] [place] [facility] [address] [facility] [address] [facility] [place] [facility] URINALYS IS NITRITE [PRESENCE] IN URINE NEGATIVE mg/dL 10/20 Specimen Type: URINE Comment: If Glucose = >500 and Ketones are positive, please alert the Physician. Ordering Provider: Pablo STEWART Report Released Date/Time: Oct 21, 2023 02:15 PM Reporting Lab: [facility] [place] [facility] [address] [facility] [address] Performing Lab: [facility] [place] [facility] [address] [facility] [address] [facility] [facility] URINALYS IS BILIRUBIN. TOTAL [PRESENCE] IN URINE NEGATIVE mg/dL 10/20 Specimen Type: URINE Comment: If Glucose = >500 and Ketones are positive, please alert the Physician. Ordering Provider: Pablo STEWART Report Released Date/Time: Oct 21, 2023 02:15 PM Reporting Lab: [facility] [place] [facility] [address] [facility] [address] Performing Lab: [facility] [place] [address] [address] [facility] [place] [facility] URINALYS IS SPECIFIC GRAVITY OF URINE BY REFRACTOME TRY 1.024 1.016 - 1.022 10/20 H Specimen Type: URINE Comment: If Glucose = >500 and Ketones are positive, please alert the Physician. Ordering Provider: Pablo STEWART Report Released Date/Time: Oct 21, 2023 02:15 PM Reporting Lab: [facility] [place] [address] [address] Performing Lab: [facility] [place] [address] [address] [facility] URINALYS IS PH OF URINE BY TEST STRIP 6.0 5.0 - 9.0 10/20 Specimen Type: URINE Comment: If Glucose = >500 and Ketones are positive, please alert the Physician. Ordering Provider: Pablo STEWART Report Released Date/Time: Oct 21, 2023 02:15 PM Reporting Lab: [facility] [place] [facility] [address] [facility] [address] Performing Lab: [facility] [place] [facility] [address] [facility] [address] [facility] [place] [facility] URINALYS IS UROBILINOG EN [MASS/VOLU ME] IN URINE BY TEST STRIP <2.0mg/d L <2.0 - 2.0 10/20 Specimen Type: URINE Comment: If Glucose = >500 and Ketones are positive, please alert the Physician. Ordering Provider: Pablo STEWART Report Released Date/Time: Oct 21, 2023 02:15 PM Reporting Lab: [facility] [place] [address] [address] Performing Lab: [facility] [place] [address] [address] [facility] [place] [facility] URINALYS IS LEUKOCYTE ESTERASE [PRESENCE] IN URINE BY TEST STRIP NEGATIVE 10/20 Specimen Type: URINE Comment: If Glucose = >500 and Ketones are positive, please alert the Physician. Ordering Provider: Pablo STEWART Report Released Date/Time: Oct 21, 2023 02:15 PM Reporting Lab: [facility] [place] [address] [address] Performing Lab: [facility] [place] [address] [address] [facility] [place] [facility] MICROALB UMIN CREATINI NE RATIO PANEL MICROALBUM IN/CREATIN INE [MASS RATIO] IN URINE 6.2 mg/g 0 - 29.9 10/20 Specimen Type: URINE No comment entered. Ordering Provider: Pablo STEWART Report Released Date/Time: Oct 21, 2023 02:15 PM Reporting Lab: [facility] [place] [address] [address] Performing Lab: [facility] [place] [facility] [address] [facility] [address] [facility] [place] [facility] MICROALB UMIN CREATINI NE RATIO PANEL MICROALBUM IN [MASS/VOLU ME] IN URINE 1.5 mg/dL 10/20 Specimen Type: URINE No comment entered. Ordering Provider: Pablo STEWART Report Released Date/Time: Oct 21, 2023 02:15 PM Reporting Lab: [facility] [place] [facility] [address] [facility] [address] Performing Lab: [facility] [place] [facility] [address] [facility] [address] [facility] [place] [facility] MICROALB UMIN CREATINI NE RATIO PANEL CREATININE [MASS/VOLU ME] IN URINE 240.98 mg/dL 10/20 Specimen Type: URINE No comment entered. Ordering Provider: Pablo STEWART Report Released Date/Time: Oct 21, 2023 02:15 PM Reporting Lab: [facility] [place] [facility] [address] [facility] [address] Performing Lab: [facility] [place] [facility] [address] [facility] [address] [facility] [place] [facility] URIC ACID URATE [MASS/VOLU ME] IN SERUM OR PLASMA 5.4 mg/dL 3.5 - 7.2 10/20 Specimen Type: SERUM No comment entered. Ordering Provider: Pablo STEWART Report Released Date/Time: Oct 21, 2023 02:15 PM Reporting Lab: [facility] [place] [facility] [address] [facility] [address] Performing Lab: [facility] [place] [facility] [address] [facility] [address] [facility] [place] [facility] CBC AND DIFF (AUTO) LEUKOCYTES [#/VOLUME] IN BLOOD BY AUTOMATED COUNT 5.99 10*3/uL 4.50 - 11.00 10/20 Specimen Type: BLOOD No comment entered. Ordering Provider: Pablo STEWART Report Released Date/Time: Oct 21, 2023 02:23 PM Reporting Lab: [facility] [place] [facility] [address] [facility] [address] Performing Lab: [facility] [place] [facility] [address] [facility] [address] [facility] [place] CBC AND DIFF (AUTO) ERYTHROCYT ES [#/VOLUME] IN BLOOD BY AUTOMATED COUNT 4.47 10*6/uL 4.23 - 5.66 10/20 Specimen Type: BLOOD No comment entered. Ordering Provider: Pablo STEWART Report Released Date/Time: Oct 21, 2023 02:23 PM Reporting Lab: [facility] [place] [facility] [address] [facility] [address] Performing Lab: [facility] [place] [facility] [address] [facility] [address] [facility] [place] CBC AND DIFF (AUTO) HEMOGLOBIN [MASS/VOLU ME] IN BLOOD 14.0 g/dL 12.8 - 17 10/20 Specimen Type: BLOOD No comment entered. Ordering Provider: Pablo STEWART Report Released Date/Time: Oct 21, 2023 02:23 PM Reporting Lab: [facility] [place] [facility] [address] [facility] [address] Performing Lab: [facility] [place] [facility] [address] [facility] [address] [facility] [place] CBC AND DIFF (AUTO) HEMATOCRIT [VOLUME FRACTION] OF BLOOD BY AUTOMATED COUNT 40.0 39.2 - 50.4 10/20 Specimen Type: BLOOD No comment entered. Ordering Provider: Pablo STEWART Report Released Date/Time: Oct 21, 2023 02:23 PM Reporting Lab: [facility] [place] [facility] [address] [facility] [address] Performing Lab: [facility] [place] [facility] [address] [facility] [address] [facility] [place] CBC AND DIFF (AUTO) MCV [ENTITIC VOLUME] BY AUTOMATED COUNT 89.5 fL 82 - 99 10/20 Specimen Type: BLOOD No comment entered. Ordering Provider: Pablo STEWART Report Released Date/Time: Oct 21, 2023 02:23 PM Reporting Lab: [facility] [place] [facility] [address] [facility] [address] Performing Lab: [facility] [place] [facility] [address] [facility] [address] [facility] [place] [facility] CBC AND DIFF (AUTO) MCHC [MASS/VOLU ME] BY AUTOMATED COUNT 35.0 g/dL 30.8 - 35.1 10/20 Specimen Type: BLOOD No comment entered. Ordering Provider: Pablo STEWART Report Released Date/Time: Oct 21, 2023 02:23 PM Reporting Lab: [facility] [place] [address] [address] Performing Lab: [facility] [place] [address] [address] [facility] [place] [facility] CBC AND DIFF (AUTO) PLATELETS [#/VOLUME] IN BLOOD BY AUTOMATED COUNT 211 10*3/uL 140 - 360 10/20 Specimen Type: BLOOD No comment entered. Ordering Provider: Pablo STEWART Report Released Date/Time: Oct 21, 2023 02:23 PM Reporting Lab: [facility] [place] [address] [address] Performing Lab: [facility] [place] [facility] [address] [facility] [address] [facility] [place] [facility] CBC AND DIFF (AUTO) ERYTHROCYT E DISTRIBUTI ON WIDTH [RATIO] BY AUTOMATED COUNT 12.3 12.0 - 16.0 10/20 Specimen Type: BLOOD No comment entered. Ordering Provider: Pablo STEWART Report Released Date/Time: Oct 21, 2023 02:23 PM Reporting Lab: [facility] [place] [address] [address] Performing Lab: [facility] [place] [facility] [address] [facility] [address] [facility] [place] [facility] CBC AND DIFF (AUTO) MONOCYTES [#/VOLUME] IN BLOOD BY AUTOMATED COUNT 0.38 10*3/uL 0.30 - 1.10 10/20 Specimen Type: BLOOD No comment entered. Ordering Provider: Pablo STEWART Report Released Date/Time: Oct 21, 2023 02:23 PM Reporting Lab: [facility] [place] [facility] [address] [facility] [address] Performing Lab: [facility] [place] [facility] [address] [facility] [address] [facility] [place] [facility] CBC AND DIFF (AUTO) MCH [ENTITIC MASS] BY AUTOMATED COUNT 31.3 pg 26.2 - 32.6 10/20 Specimen Type: BLOOD No comment entered. Ordering Provider: Pablo STEWART Report Released Date/Time: Oct 21, 2023 02:23 PM Reporting Lab: [facility] [place] [facility] [address] [facility] [address] Performing Lab: [facility] [place] [facility] [address] [facility] [address] [facility] [place] [facility] CBC AND DIFF (AUTO) NEUTROPHIL S/100 LEUKOCYTES IN BLOOD BY AUTOMATED COUNT 72.5 43.7 - 75.8 10/20 Specimen Type: BLOOD No comment entered. Ordering Provider: Pablo STEWART Report Released Date/Time: Oct 21, 2023 02:23 PM Reporting Lab: [facility] [place] [facility] [address] [facility] [address] Performing Lab: [facility] [place] [facility] [address] [facility] [address] [facility] [place] CBC AND DIFF (AUTO) LYMPHOCYTE S/100 LEUKOCYTES IN BLOOD BY AUTOMATED COUNT 17.5 14.0 - 42.3 10/20 Specimen Type: BLOOD No comment entered. Ordering Provider: Pablo STEWART Report Released Date/Time: Oct 21, 2023 02:23 PM Reporting Lab: [facility] [place] [facility] [address] [facility] [address] Performing Lab: [facility] [place] [facility] [address] [facility] [address] [facility] [place] CBC AND DIFF (AUTO) MONOCYTES/ 100 LEUKOCYTES IN BLOOD BY AUTOMATED COUNT 6.3 5.1 - 13.7 10/20 Specimen Type: BLOOD No comment entered. Ordering Provider: Pablo STEWART Report Released Date/Time: Oct 21, 2023 02:23 PM Reporting Lab: [facility] [place] [facility] [address] [facility] [address] Performing Lab: [facility] [place] [facility] [address] [facility] [address] [facility] [place] [facility] CBC AND DIFF (AUTO) EOSINOPHIL S/100 LEUKOCYTES IN BLOOD BY AUTOMATED COUNT 2.7 0.4 - 6.8 10/20 Specimen Type: BLOOD No comment entered. Ordering Provider: Pablo STEWART Report Released Date/Time: Oct 21, 2023 02:23 PM Reporting Lab: [facility] [place] [facility] [address] [facility] [address] Performing Lab: [facility] [place] [facility] [address] [facility] [address] [facility] [place] [facility] CBC AND DIFF (AUTO) BASOPHILS/ 100 LEUKOCYTES IN BLOOD BY AUTOMATED COUNT 0.8 0.1 - 2.0 10/20 Specimen Type: BLOOD No comment entered. Ordering Provider: Pablo STEWART Report Released Date/Time: Oct 21, 2023 02:23 PM Reporting Lab: [facility] [place] [facility] [address] [facility] [address] Performing Lab: [facility] [place] [facility] [address] [facility] [address] [facility] [place] CBC AND DIFF (AUTO) NEUTROPHIL S [#/VOLUME] IN BLOOD BY AUTOMATED COUNT 4.34 10*3/uL 2.20 - 7.60 10/20 Specimen Type: BLOOD No comment entered. Ordering Provider: Pablo STEWART Report Released Date/Time: Oct 21, 2023 02:23 PM Reporting Lab: [facility] [place] [facility] [address] [facility] [address] Performing Lab: [facility] [place] [address] [address] [facility] [place] [facility] CBC AND DIFF (AUTO) LYMPHOCYTE S [#/VOLUME] IN BLOOD BY AUTOMATED COUNT 1.05 10*3/uL 1.00 - 3.20 10/20 Specimen Type: BLOOD No comment entered. Ordering Provider: Pablo STEWART Report Released Date/Time: Oct 21, 2023 02:23 PM Reporting Lab: [facility] [place] [address] [address] Performing Lab: [facility] [place] [address] [address] [facility] [place] [facility] CBC AND DIFF (AUTO) EOSINOPHIL S [#/VOLUME] IN BLOOD BY AUTOMATED COUNT 0.16 10*3/uL 0.03 - 0.44 10/20 Specimen Type: BLOOD No comment entered. Ordering Provider: Pablo STEWART Report Released Date/Time: Oct 21, 2023 02:23 PM Reporting Lab: [facility] [place] [address] [address] Performing Lab[facility] [place] [facility] [address] [facility] [address] [facility] [place] [facility] CBC AND DIFF (AUTO) BASOPHILS [#/VOLUME] IN BLOOD BY AUTOMATED COUNT 0.05 10*3/uL 0.01 - 0.13 10/20 Specimen Type: BLOOD No comment entered. Ordering Provider: Pablo STEWART Report Released Date/Time: Oct 21, 2023 02:23 PM Reporting Lab: [facility] [place] [address] [address] Performing Lab[facility] [place] [facility] [address] [facility] [address] [facility] [place] [facility] CBC AND DIFF (AUTO) IMMATURE GRANULOCYT ES/100 LEUKOCYTES IN BLOOD BY AUTOMATED COUNT 0.2 0.0 - 0.7 10/20 Specimen Type: BLOOD No comment entered. Ordering Provider: Pablo STEWART Report Released Date/Time: Oct 21, 2023 02:23 PM Reporting Lab: [facility] [place] [facility] [address] [facility] [address] Performing Lab: [facility] [address] [facility] [address] [facility] CBC AND DIFF (AUTO) IMMATURE GRANULOCYT ES [#/VOLUME] IN BLOOD 0.01 10*3/uL 0.00 - 0.06 10/20 Specimen Type: BLOOD No comment entered. Ordering Provider: Pablo STEWART Report Released Date/Time: Oct 21, 2023 02:23 PM Reporting Lab: [facility] [address] [facility] [address] Performing Lab: [facility] [address] [facility] [address] [facility] TSH THYROTROPI N [UNITS/VOL UME] IN SERUM OR PLASMA 1.46 u[IU]/mL 0.35 - 5.00 10/20 Specimen Type: SERUM No comment entered. Ordering Provider: Pablo STEWART Report Released Date/Time: Oct 21, 2023 02:15 PM Reporting Lab: [facility] [address] [facility] [address] Performing Lab: [facility] [address] [address] [facility] HIV 1&2 Ag/Ab SCREEN HIV 1+2 AB+HIV1 P24 AG [PRESENCE] IN SERUM OR PLASMA BY IMMUNOASSA Y NON-REAC TIVE 10/20 Specimen Type: SERUM No comment entered. Ordering Provider: Pablo STEWART Report Released Date/Time: Oct 21, 2023 02:15 PM Reporting Lab: [facility] [place] [facility] [address] [facility] [address] Performing Lab: [facility] [place] [facility] [address] [facility] [address] [facility] [place] [facility] HEPATITI S C ANTIBODY (HCV)-AR C HEPATITIS C VIRUS AB [PRESENCE] IN SERUM NON-REAC TIVE 10/20 Specimen Type: SERUM Comment: Hep C Ab: No HCV antibody detected. If recent infection is suspected or other evidence suggests HCV infection, consider HCV nucleic acid testing Ordering Provider: Pablo STEWART Report Released Date/Time: Oct 21, 2023 02:15 PM Reporting Lab: [facility] [place] [facility] [address] [facility] [address] Performing Lab: [facility] [place] [facility] [address] [facility] [address] [facility] [place] [facility] Vital Signs Combined list of inpatient and [...] [facility] [place] [facility] DIASTOLIC BLOOD PRESSURE 68 024 13:06:03 [facility] [place] [facility] [...] included; 2) Encounters from the Department of [facility] facilities going backup to 280 months. Location Location Details Encounter Type Encounter Number Reason For Visit Attending Provider ADM Date DC Date Status Disposition Source [facility]counter [id number] 10/11 [facility] [id number] 10/11 [facility] [id number] 10/14 [facility] En[facility] [id number] 10/14 [facility] OFFICE O/P NEW MOD 45 MIN [id number] Diagnos is: ICD-10- CM 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, unspeci MARILUZ Grider 10/20 [facility] En[facility] [id number] Diagnos is: ICD-10- CM E66.09 Other obesity due to excess calorie s MANEKAS,DI NA L 11/17 [facility] En[facility] [id number] 11/25 [facility] En[facility] [id number] Diagnos is: ICD-10- CM E66.09 Other obesity due to excess calorie s MANEKAS,DI NA L 12/13 [facility] En[facility] [id number] 01/10 [facility] En[facility] [id number] Diagnos is: ICD-10- CM E66.09 Other obesity due to excess calorie s MANEKAS,DI NA L 01/13 [facility] En[facility] [id number] 02/20 [facility] En[facility] [id number] Diagnos is: ICD-10- CM E66.09 Other obesity due to excess calorie s MANEKAS,DI NA L 02/20 [facility] En[facility] [id number] SARAH GARCIA ISTOPHER E 02/23 [facility] En[facility] [id number] Diagnos is: ICD-10- CM E66.09 Other obesity due to excess calorie s MANDARINELAS,DI NA L 03/13 [facility] [facility] Outpatient Encounter [id number] 03/27 [facility] Outpatient Encounter [id number] Diagnos is: ICD-10- CM E66.09 Other obesity due to excess calorie s MANEKAS,DI NA L 04/14 [facility] [place] [facility] Outpatient Encounter [id number] 05/02 [facility] [place] [facility] Social History Combined list of available smoking, tobacco, and other social 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 Social History Type Response Date Comment Sourc e Tobacco smoking status FORMERLY [facility] NEVER USED 10/15/2023 [facility] [place] [facility] Plan of Care List of future care activities from Department of Veterans Affairs facilities. Additional future care activities may be listed in the Assessment and Plan section. Date/Time Care Activity Care Activity Detail Facili ty 09/04/2024 Laboratory - Modeling And Simulation Analyst ry Order OCCULT BLOOD FIT X1 SCREEN ([facility] ONLY) STOOL FECES SP [facility] [place] [facility]
--- OUTSIDE RECORDS SUMMARY | 2024-09-15 16:18 | XMS_ITS | Referral Summary ---
Author Organization [facility] Address [address] [place] [address] Care Team Providers Care Medical Dosimetrist Name Role Phone Gabby Kelly Primary Care Provider [phone] Encounters Date Type Department Care Team Description 08/15/2024 10:00 AM EST - 08/15/2024 11:59 PM EST Hospital Encounter [facility] [address] [place] [address] Vikram Barbour MD Chronic cough Discharge Disposition: Home or Self Care () 08/15/2024 11:00 AM EST Office Visit [facility] [address] [place] [address] Loading Checker: Vikram Pace MD Chronic cough (Primary Dx) [...] Not on file Procedures * Due to [place] law, this organization might not be sharing negative HIV tests. Procedure Name Priority Date/Time Associated Diagnosis Comments XR CHEST 2 VW Routine 08/15/2024 10:05 AM EST Chronic cough from Last 3 Months Results * Due to [place] law, this organization might not be sharing [...] obtain the completed interpretation. ? Workstation ID: [id number] Narrative 08/16/2024 9:37 AM EST COMPARISON: ??None FINDINGS AND Resulting Agency Comment [id number] Procedure Note Vikram Fiore MD - 08/16/2024 [...] possible to obtain thecompleted interpretation. Workstation ID: [id number] us Vikram Barbour MD IMG XR PROCEDURES Final Res ult from Last 3 Months Insurance [facility] Care Teams Medical Dosimetrist Relationship Specialty Start Date End Date Gabby Kelly 1961 [facility] [place] [id number] PCP - General Internal Medicine 08/15/24
== END 2024-09-15 14:26 | disposition home or self-care (01) ==
LOC: HO.HMCC 14:00
PROVIDERS: PCP Internal Medicine; Visit Provider Internal Medicine
DX: E11.42 Type 2 diabetes mellitus with diabetic polyneuropathy (principal); Z79.4 Long term (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; I10 Essential (primary) hypertension; E78.9 Disorder of lipoprotein metabolism, unspecified; F33.1 Major depressive disorder, recurrent, moderate; G47.33 Obstructive sleep apnea (adult) (pediatric); M1A.9XX0 Chronic gout, unspecified, without tophus (tophi); R79.89 Other specified abnormal findings of blood chemistry; R41.3 Other amnesia; E08.21 Diabetes mellitus due to underlying condition with diabetic nephropathy; E66.01 Morbid (severe) obesity due to excess calories; R05.3 Chronic cough

== ENCOUNTER → 2024-09-15 14:00 | Outpatient (BNVA) | payer OTHER, SELFPAY | PROVIDERS: PCP Internal Medicine; Visit Provider Internal Medicine | DX: E11.42 Type 2 diabetes mellitus with diabetic polyneuropathy (principal); I12.9 Hypertensive chronic kidney disease with stage 1 through stage 4 chronic kidney disease, or unspecified chronic kidney disease; E11.22 Type 2 diabetes mellitus with diabetic chronic kidney disease; N18.9 Chronic kidney disease, unspecified; E78.9 Disorder of lipoprotein metabolism, unspecified; F33.1 Major depressive disorder, recurrent, moderate; G47.33 Obstructive sleep apnea (adult) (pediatric); M1A.9XX0 Chronic gout, unspecified, without tophus (tophi); R79.89 Other specified abnormal findings of blood chemistry; R41.3 Other amnesia; E66.01 Morbid (severe) obesity due to excess calories; Z68.41 Body mass index [BMI] 40.0-44.9, adult; R05.3 Chronic cough; Z79.4 Long term (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 | CPT/HCPCS: 96127 ==

== ENCOUNTER 2024-09-27 15:21 | Outpatient (AMB) | payer OTHER, SELFPAY ==
[2024-09-27 15:27] VITALS: BP 122/74; PULSE 91; O2SAT 99; BMI 43.8
--- NOTE | 2024-09-27 15:27 | MHC.OFFVIS ---
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 He reports shooting pain with attempt to flex forward and he reports pain aggravation with flexing backwards. He reports weakness in bilateral lower extremities. He can not make sure if his weakness is secondary to pain or it is significant weakness of the bilateral lower extremities. He had an MRI more than 5 years ago. He requests me to send him for MRI of the lumbar spine. I will schedule him for the MRI. He has [employer] SCS. He will call his sales representative consultant Carlos from [employer] and request him to teach how to turn the device into MRI mode. In the past medial branch T11-T12 L1 blocks resulted in no pain improvement. Results of the trial of [employer]CS Nevro: He reports excellent pain relief specially in bilateral lower extremities. He reports that he is able to sleep very well with device on he reports minor pain in the feet but it does not prevent him to take good sleep. He also reports the device helps for the lower back pain improved his mobility activities of daily living and improve his social interactions. He is very much interested in implantation of the device on permanent basis. He is suffering from spondylosis of the lumbar spine disc degeneration lumbar spine but his main problem is diabetic polyneuropathy of bilateral lower extremities. Prior: SI joint injection results 3 weeks of pain relieve on diagnostic injection 100%.? The pain under right scapula is another problem for this patient.? I told him that this pain can be treated potentially as a myofascial pain syndrome and I can perform once he is here in my office a trigger point injection into this area hopefully it will give him good pain relief.? ?He is under care of urologist and urologist thinks that this pain might be related to his kidney stones.? However the larger stone he has? is on the left side and that he experiences pain only on the right.? He is going for shockwave lithotripsy with this urologist in the future to destroyed the stones.? As of his polyneuropathy it stems out from diabetes.? His hemoglobin A1c is equal to 8. it is certain improvement from number in around 10. however unfortunately it is not good enough to reduce polyneuropathy.? He reports significant bilateral pain as burning sensations pins and needles in bilateral feet in the is distribution of the low socks.? We discussed the situation with peripheral neuropathy.? Explained to him that unless he would decrease his hemoglobin A1c below 6 I would not expect his pain getting better. ?He is suffering from axial lower back pain and peripheral diabetic polyneuropathy.? ? He was complaining on the pain in the lateral hip area, he was sent for hip x-ray which demonstrated almost no pathology normal alignment no cartilage loss. He went for consult with Dr. Rain hobbs neurosurgeon.? There were no indications to do any surgical interventions by Dr. Rodrigez. 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 Diabetes 1.5, managed as type 1 Complex regional pain syndrome of both lower extremities Diabetic peripheral neuropathy Spondylosis of lumbar region without myelopathy or radiculopathy Surgical History S/P placement of nerve stimulator Hx of lithotripsy Hx of colonoscopy Family History Other Mental health disorder Social History Housing: Condominium Alcohol intake: never Patient Tobacco Use Status: Never used Tobacco e-Cigarette/Vaping Use: Never Used Second Hand Smoke Exposure: No service: No Current occupational status: disabled Cognitive needs: No Hearing needs: No Vision needs: Yes Review of Systems Const All systems reviewed & are unremarkable except as noted in HPI and below Physical Exam Vital Signs: Last Vital Signs Pulse 91 09/27/24 15:27 BP 122/74 09/27/24 15:27 Pulse Ox 99 09/27/24 15:27 Oxygen Delivery Method Room Air 09/27/24 15:27 BMI result Body Mass Index 43.8 Const General: cooperative and no acute distress Nutritional Appearance: obese Limitations: no limitations HEENT Head: Yes normocephalic Ears: hearing grossly normal bilaterally Neck Neck: Yes full ROM and Yes supple Resp Effort & Inspection: normal respiratory effort and able to speak in complete sentences 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 myelopathy or radiculopathy: Code(s): M47.816 - Spondylosis without myelopathy or radiculopathy, lumbar region Category: Medical (4) Diabetic peripheral neuropathy: Code(s): E11.42 - Type 2 diabetes mellitus with diabetic polyneuropathy Category: Medical (5) Complex regional pain syndrome of both lower extremities: Code(s): G90.523 - Complex regional pain syndrome I of lower limb, bilateral Category: Medical Qualifiers: Complex regional pain syndrome type: type I Qualified Code(s): G90.523 - Complex regional pain syndrome I of lower limb, bilateral (6) Sacroiliac joint pain: Code(s): M53.3 - Sacrococcygeal disorders, not elsewhere classified Category: Medical (7) Sacroiliitis: Code(s): M46.1 - Sacroiliitis, not elsewhere classified Category: Medical (8) 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 He had an MRI more than 5 years ago. He requests me to send him for MRI of the lumbar spine. He has Nevro device which needs to be turned into the MRI mode before the MRI. After he will get off of the MRI device he would need to give me a call and schedule an appointment with me. Orders: Orders MR lumbar spine wo con Today M47.815 - Spondylosis without myelopathy or radiculopathy, thoracolumbar region, M51.369 - Other intervertebral disc degeneration, lumbar region without mention of lumbar back pain or lower extremity pain Coding Level of Care Code Est Pt Level 3 (75071) Diagnoses Spinal cord stimulator status Z96.89 Hip osteoarthritis M16.9 Spondylosis of lumbar region without myelopathy or radiculopathy M47.816 Diabetic peripheral neuropathy E11.42 Complex regional pain syndrome type 1 of both lower extremities G90.523 Complex regional pain syndrome type: type I Sacroiliac joint pain M53.3 Sacroiliitis M46.1 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
--- OUTSIDE RECORDS SUMMARY | 2024-09-27 17:43 | XMS_ITS | Continuity of Care Document ---
Author Name [facility] Organization [facility] Care Team Providers Care Supervisor Fabrication And Assembly Name Role Phone [facility] Unavailable Unavailable Problems Combined list of problems [...] [facility] Exposure to potentially hazardous substance ([facility] [id number] ) Active Condition Oct 22, 2023 Entered [...] Site Reaction Lot Number CVX Code Drug Broach Setter Status Comments Source INFLUENZA, UNSPECIFIED FORMULATION 2022 [...] Oct 21, 2023 02:15 PM Reporting Lab: [facility] [address] [address] Performing Lab: [facility] [address] [address] [facility] HEPATITI S B SURFACE ANTIBODY (HBsAb)- WH HEPATITIS B VIRUS SURFACE AB [PRESENCE] IN SERUM BY IMMUNOASSA Y Non Reactive 10/20 Specimen Type: SERUM No comment entered. Ordering Provider: Pablo STEWART Report Released Date/Time: Oct 21, 2023 02:15 PM Reporting Lab: [facility] [address] [address] Performing Lab: [facility] [address] [address] [facility] HEMOGLOB IN A1C PANEL HEMOGLOBIN A1C/HEMOGL [...] Oct 21, 2023 02:15 PM Reporting Lab: [facility] [place] [address] [address] Performing Lab: [facility] [place] [address] [address] [facility] [place] [facility] URINALYS IS COLOR OF URINE Yellow 10/20 Specimen Type: URINE Comment: If Glucose = >500 and Ketones are positive, please alert the Physician. Ordering Provider: Pablo STEWART Report Released Date/Time: Oct 21, 2023 02:15 PM Reporting Lab: [facility] [place] [address] [address] Performing Lab: [facility] [place] [address] [address] [facility] [place] [facility] URINALYS IS APPEARANCE OF URINE Clear 10/20 Specimen Type: URINE Comment: If Glucose = >500 and Ketones are positive, please alert the Physician. Ordering Provider: Pablo STEWART Report Released Date/Time: Oct 21, 2023 02:15 PM Reporting Lab: [facility] [place] [address] [address] Performing Lab: [facility] [place] [address] [address] [facility] [place] [facility] URINALYS IS GLUCOSE [MASS/VOLU ME] IN URINE NEGATIVE mg/dL 10/20 Specimen Type: URINE Comment: If Glucose = >500 and Ketones are positive, please alert the Physician. Ordering Provider: Pablo STEWART Report Released Date/Time: Oct 21, 2023 02:15 PM Reporting Lab: [facility] [place] [facility] [address] [address] Performing Lab: [facility] [place] [facility] [address] [address] [facility] [place] [facility] URINALYS IS KETONES [MASS/VOLU ME] IN URINE BY TEST STRIP NEGATIVE mg/dL 10/20 Specimen Type: URINE Comment: If Glucose = >500 and Ketones are positive, please alert the Physician. Ordering Provider: Pablo STEWART Report Released Date/Time: Oct 21, 2023 02:15 PM Reporting Lab: [facility] [place] [address] [address] Performing Lab: [facility] [place] [address] [address] [facility] [place] [facility] URINALYS IS ERYTHROCYT ES [PRESENCE] IN URINE SEDIMENT BY LIGHT MICROSCOPY NEGATIVE mg/dL 10/20 Specimen Type: URINE Comment: If Glucose = >500 and Ketones are positive, please alert the Physician. Ordering Provider: Pablo STEWART Report Released Date/Time: Oct 21, 2023 02:15 PM Reporting Lab: [facility] [place] [address] [address] Performing Lab: [facility] [place] [address] [address] [facility] [place] [facility] URINALYS IS PROTEIN [MASS/VOLU ME] IN URINE BY TEST STRIP 20 mg/dL 10/20 Specimen Type: URINE Comment: If Glucose = >500 and Ketones are positive, please alert the Physician. Ordering Provider: Pablo STEWART Report Released Date/Time: Oct 21, 2023 02:15 PM Reporting Lab: [facility] [place] [address] [address] Performing Lab: [facility] [place] [facility] [address] [address] [facility] [place] [facility] URINALYS IS NITRITE [PRESENCE] IN URINE NEGATIVE mg/dL 10/20 Specimen Type: URINE Comment: If Glucose = >500 and Ketones are positive, please alert the Physician. Ordering Provider: Pablo STEWART Report Released Date/Time: Oct 21, 2023 02:15 PM Reporting Lab: [facility] [place] [facility] [address] [address] Performing Lab: [facility] [place] [facility] [address] [address] [facility] [facility] URINALYS IS BILIRUBIN. TOTAL [PRESENCE] IN URINE NEGATIVE mg/dL 10/20 Specimen Type: URINE Comment: If Glucose = >500 and Ketones are positive, please alert the Physician. Ordering Provider: Pablo STEWART Report Released Date/Time: Oct 21, 2023 02:15 PM Reporting Lab: [facility] [place] [facility] [address] [address] Performing Lab: [facility] [place] [address] [address] [facility] [place] [facility] URINALYS IS SPECIFIC GRAVITY OF URINE BY REFRACTOME TRY 1.024 1.016 - 1.022 10/20 H Specimen Type: URINE Comment: If Glucose = >500 and Ketones are positive, please alert the Physician. Ordering Provider: Pablo STEWART Report Released Date/Time: Oct 21, 2023 02:15 PM Reporting Lab: [facility] [place] [address] [address] Performing Lab: [facility] [place] [address] [address] [facility] URINALYS IS PH OF URINE BY TEST STRIP 6.0 5.0 - 9.0 10/20 Specimen Type: URINE Comment: If Glucose = >500 and Ketones are positive, please alert the Physician. Ordering Provider: Pablo STEWART Report Released Date/Time: Oct 21, 2023 02:15 PM Reporting Lab: [facility] [place] [facility] [address] [address] Performing Lab: [facility] [place] [facility] [address] [address] [facility] [place] [facility] URINALYS IS UROBILINOG EN [MASS/VOLU ME] IN URINE BY TEST STRIP <2.0mg/d L <2.0 - 2.0 10/20 Specimen Type: URINE Comment: If Glucose = >500 and Ketones are positive, please alert the Physician. Ordering Provider: Pablo STEWART Report Released Date/Time: Oct 21, 2023 02:15 PM Reporting Lab: [facility] [place] [address] [address] Performing Lab: [facility] [place] [address] [address] [facility] [place] [facility] URINALYS IS LEUKOCYTE ESTERASE [PRESENCE] IN URINE BY TEST STRIP NEGATIVE 10/20 Specimen Type: URINE Comment: If Glucose = >500 and Ketones are positive, please alert the Physician. Ordering Provider: Pablo STEWART Report Released Date/Time: Oct 21, 2023 02:15 PM Reporting Lab: [facility] [place] [address] [address] Performing Lab: [facility] [place] [address] [address] [facility] [place] [facility] MICROALB UMIN CREATINI NE RATIO PANEL MICROALBUM IN/CREATIN INE [MASS RATIO] IN URINE 6.2 mg/g 0 - 29.9 10/20 Specimen Type: URINE No comment entered. Ordering Provider: Pablo STEWART Report Released Date/Time: Oct 21, 2023 02:15 PM Reporting Lab: [facility] [place] [address] [address] Performing Lab: [facility] [place] [facility] [address] [address] [facility] [place] [facility] MICROALB UMIN CREATINI NE RATIO PANEL MICROALBUM IN [MASS/VOLU ME] IN URINE 1.5 mg/dL 10/20 Specimen Type: URINE No comment entered. Ordering Provider: Pablo STEWART Report Released Date/Time: Oct 21, 2023 02:15 PM Reporting Lab: [facility] [place] [facility] [address] [address] Performing Lab: [facility] [place] [facility] [address] [address] [facility] [place] [facility] MICROALB UMIN CREATINI NE RATIO PANEL CREATININE [MASS/VOLU ME] IN URINE 240.98 mg/dL 10/20 Specimen Type: URINE No comment entered. Ordering Provider: Pablo STEWART Report Released Date/Time: Oct 21, 2023 02:15 PM Reporting Lab: [facility] [place] [facility] [address] [address] Performing Lab: [facility] [place] [facility] [address] [address] [facility] [place] [facility] URIC ACID URATE [MASS/VOLU ME] IN SERUM OR PLASMA 5.4 mg/dL 3.5 - 7.2 10/20 Specimen Type: SERUM No comment entered. Ordering Provider: Pablo STEWART Report Released Date/Time: Oct 21, 2023 02:15 PM Reporting Lab: [facility] [place] [facility] [address] [address] Performing Lab: [facility] [place] [facility] [address] [address] [facility] [place] [facility] CBC AND DIFF (AUTO) LEUKOCYTES [#/VOLUME] IN BLOOD BY AUTOMATED COUNT 5.99 10*3/uL 4.50 - 11.00 10/20 Specimen Type: BLOOD No comment entered. Ordering Provider: Pablo STEWART Report Released Date/Time: Oct 21, 2023 02:23 PM Reporting Lab: [facility] [place] [facility] [address] [address] Performing Lab: [facility] [place] [facility] [address] [address] [facility] [place] CBC AND DIFF (AUTO) ERYTHROCYT ES [#/VOLUME] IN BLOOD BY AUTOMATED COUNT 4.47 10*6/uL 4.23 - 5.66 10/20 Specimen Type: BLOOD No comment entered. Ordering Provider: Pablo STEWART Report Released Date/Time: Oct 21, 2023 02:23 PM Reporting Lab: [facility] [place] [facility] [address] [address] Performing Lab: [facility] [place] [facility] [address] [address] [facility] [place] CBC AND DIFF (AUTO) HEMOGLOBIN [MASS/VOLU ME] IN BLOOD 14.0 g/dL 12.8 - 17 10/20 Specimen Type: BLOOD No comment entered. Ordering Provider: Pablo STEWART Report Released Date/Time: Oct 21, 2023 02:23 PM Reporting Lab: [facility] [place] [facility] [address] [address] Performing Lab: [facility] [place] [facility] [address] [address] [facility] [place] CBC AND DIFF (AUTO) HEMATOCRIT [VOLUME FRACTION] OF BLOOD BY AUTOMATED COUNT 40.0 39.2 - 50.4 10/20 Specimen Type: BLOOD No comment entered. Ordering Provider: Pablo STEWART Report Released Date/Time: Oct 21, 2023 02:23 PM Reporting Lab: [facility] [place] [facility] [address] [address] Performing Lab: [facility] [place] [facility] [address] [address] [facility] [place] CBC AND DIFF (AUTO) MCV [ENTITIC VOLUME] BY AUTOMATED COUNT 89.5 fL 82 - 99 10/20 Specimen Type: BLOOD No comment entered. Ordering Provider: Pablo STEWART Report Released Date/Time: Oct 21, 2023 02:23 PM Reporting Lab: [facility] [place] [facility] [address] [address] Performing Lab: [facility] [place] [facility] [address] [address] [facility] [place] [facility] CBC AND DIFF (AUTO) MCHC [MASS/VOLU ME] BY AUTOMATED COUNT 35.0 g/dL 30.8 - 35.1 10/20 Specimen Type: BLOOD No comment entered. Ordering Provider: Pablo STEWART Report Released Date/Time: Oct 21, 2023 02:23 PM Reporting Lab: [facility] [place] [address] [address] Performing Lab: [facility] [place] [address] [address] [facility] [place] [facility] CBC AND DIFF (AUTO) PLATELETS [#/VOLUME] IN BLOOD BY AUTOMATED COUNT 211 10*3/uL 140 - 360 10/20 Specimen Type: BLOOD No comment entered. Ordering Provider: Pablo STEWART Report Released Date/Time: Oct 21, 2023 02:23 PM Reporting Lab: [facility] [place] [address] [address] Performing Lab[facility] [place] [facility] [address] [address] [facility] [place] [facility] CBC AND DIFF (AUTO) ERYTHROCYT E DISTRIBUTI ON WIDTH [RATIO] BY AUTOMATED COUNT 12.3 12.0 - 16.0 10/20 Specimen Type: BLOOD No comment entered. Ordering Provider: Pablo STEWART Report Released Date/Time: Oct 21, 2023 02:23 PM Reporting Lab: [facility] [place] [address] [address] Performing Lab: [facility] [place] [facility] [address] [address] [facility] [place] CBC AND DIFF (AUTO) MONOCYTES [#/VOLUME] IN BLOOD BY AUTOMATED COUNT 0.38 10*3/uL 0.30 - 1.10 10/20 Specimen Type: BLOOD No comment entered. Ordering Provider: Pablo STEWART Report Released Date/Time: Oct 21, 2023 02:23 PM Reporting Lab: [facility] [place] [facility] [address] [address] Performing Lab: [facility] [place] [facility] [address] [address] [facility] CBC AND DIFF (AUTO) MCH [ENTITIC MASS] BY AUTOMATED COUNT 31.3 pg 26.2 - 32.6 10/20 Specimen Type: BLOOD No comment entered. Ordering Provider: Pablo STEWART Report Released Date/Time: Oct 21, 2023 02:23 PM Reporting Lab: [facility] [place] [facility] [address] [address] Performing Lab: [facility] [place] [address] [address] [facility] CBC AND DIFF (AUTO) NEUTROPHIL S/100 LEUKOCYTES IN BLOOD BY AUTOMATED COUNT 72.5 43.7 - 75.8 10/20 Specimen Type: BLOOD No comment entered. Ordering Provider: Pablo STEWART Report Released Date/Time: Oct 21, 2023 02:23 PM Reporting Lab: [facility] [place] [facility] [address] [address] Performing Lab: [facility] [place] [facility] [address] [address] [facility] CBC AND DIFF (AUTO) LYMPHOCYTE S/100 LEUKOCYTES IN BLOOD BY AUTOMATED COUNT 17.5 14.0 - 42.3 10/20 Specimen Type: BLOOD No comment entered. Ordering Provider: Pablo STEWART Report Released Date/Time: Oct 21, 2023 02:23 PM Reporting Lab: [facility] [place] [facility] [address] [address] Performing Lab: [facility] [place] [facility] [address] [address] [facility] [place] CBC AND DIFF (AUTO) MONOCYTES/ 100 LEUKOCYTES IN BLOOD BY AUTOMATED COUNT 6.3 5.1 - 13.7 10/20 Specimen Type: BLOOD No comment entered. Ordering Provider: Pablo STEWART Report Released Date/Time: Oct 21, 2023 02:23 PM Reporting Lab: [facility] [place] [facility] [address] [address] Performing Lab: [facility] [place] [facility] [address] [address] [facility] [place] CBC AND DIFF (AUTO) EOSINOPHIL S/100 LEUKOCYTES IN BLOOD BY AUTOMATED COUNT 2.7 0.4 - 6.8 10/20 Specimen Type: BLOOD No comment entered. Ordering Provider: Pablo STEWART Report Released Date/Time: Oct 21, 2023 02:23 PM Reporting Lab: [facility] [place] [facility] [address] [address] Performing Lab: [facility] [place] [facility] [address] [address] [facility] [place] CBC AND DIFF (AUTO) BASOPHILS/ 100 LEUKOCYTES IN BLOOD BY AUTOMATED COUNT 0.8 0.1 - 2.0 10/20 Specimen Type: BLOOD No comment entered. Ordering Provider: Pablo STEWART Report Released Date/Time: Oct 21, 2023 02:23 PM Reporting Lab: [facility] [place] [facility] [address] [address] Performing Lab: [facility] [place] [facility] [address] [address] [facility] CBC AND DIFF (AUTO) NEUTROPHIL S [#/VOLUME] IN BLOOD BY AUTOMATED COUNT 4.34 10*3/uL 2.20 - 7.60 10/20 Specimen Type: BLOOD No comment entered. Ordering Provider: Pablo STEWART Report Released Date/Time: Oct 21, 2023 02:23 PM Reporting Lab: [facility] [place] [facility] [address] [address] Performing Lab: [facility] [place] [address] [address] [facility] CBC AND DIFF (AUTO) LYMPHOCYTE S [#/VOLUME] IN BLOOD BY AUTOMATED COUNT 1.05 10*3/uL 1.00 - 3.20 10/20 Specimen Type: BLOOD No comment entered. Ordering Provider: Pablo STEWART Report Released Date/Time: Oct 21, 2023 02:23 PM Reporting Lab: [facility] [place] [address] [address] Performing Lab: [facility] [place] [address] [address] [facility] [place] [facility] CBC AND DIFF (AUTO) EOSINOPHIL S [#/VOLUME] IN BLOOD BY AUTOMATED COUNT 0.16 10*3/uL 0.03 - 0.44 10/20 Specimen Type: BLOOD No comment entered. Ordering Provider: Pablo STEWART Report Released Date/Time: Oct 21, 2023 02:23 PM Reporting Lab: [facility] [place] [address] [address] Performing Lab: [facility] [place] [facility] [address] [address] [facility] [place] [facility] CBC AND DIFF (AUTO) BASOPHILS [#/VOLUME] IN BLOOD BY AUTOMATED COUNT 0.05 10*3/uL 0.01 - 0.13 10/20 Specimen Type: BLOOD No comment entered. Ordering Provider: Pablo STEWART Report Released Date/Time: Oct 21, 2023 02:23 PM Reporting Lab: [facility] [place] [address] [address] Performing Lab[facility] [place] [facility] [address] [address] [facility] CBC AND DIFF (AUTO) IMMATURE GRANULOCYT ES/100 LEUKOCYTES IN BLOOD BY AUTOMATED COUNT 0.2 0.0 - 0.7 10/20 Specimen Type: BLOOD No comment entered. Ordering Provider: Pablo STEWART Report Released Date/Time: Oct 21, 2023 02:23 PM Reporting Lab: [facility] [place] [facility] [address] [address] Performing Lab: [facility] [address] [address] [facility] CBC AND DIFF (AUTO) IMMATURE GRANULOCYT ES [#/VOLUME] IN BLOOD 0.01 10*3/uL 0.00 - 0.06 10/20 Specimen Type: BLOOD No comment entered. Ordering Provider: Pablo STEWART Report Released Date/Time: Oct 21, 2023 02:23 PM Reporting Lab: [facility] [address] [address] Performing Lab: [facility] [address] [address] [facility] TSH THYROTROPI N [UNITS/VOL UME] IN SERUM OR PLASMA 1.46 u[IU]/mL 0.35 - 5.00 10/20 Specimen Type: SERUM No comment entered. Ordering Provider: Pablo STEWART Report Released Date/Time: Oct 21, 2023 02:15 PM Reporting Lab: [facility] [address] [address] Performing Lab: [facility] [address] [address] [facility] HIV 1&2 Ag/Ab SCREEN HIV 1+2 AB+HIV1 P24 AG [PRESENCE] IN SERUM OR PLASMA BY IMMUNOASSA Y NON-REAC TIVE 10/20 Specimen Type: SERUM No comment entered. Ordering Provider: Pablo STEWART Report Released Date/Time: Oct 21, 2023 02:15 PM Reporting Lab: [facility] [place] [facility] [address] [address] Performing Lab: [facility] [place] [facility] [address] [address] [facility] HEPATITI S C ANTIBODY (HCV)-AR C HEPATITIS C VIRUS AB [PRESENCE] IN SERUM NON-REAC TIVE 10/20 Specimen Type: SERUM Comment: Hep C Ab: No HCV antibody detected. If recent infection is suspected or other evidence suggests HCV infection, consider HCV nucleic acid testing Ordering Provider: Pablo STEWART Report Released Date/Time: Oct 21, 2023 02:15 PM Reporting Lab: [facility] [place] [facility] [address] [address] Performing Lab: [facility] [place] [facility] [address] [address] [facility] Vital Signs Combined list of inpatient [...] included; 2) Encounters from the Department of [facility] facilities going backup to 280 months. Location Location Details Encounter Type Encounter Number Reason For Visit Attending Provider ADM Date DC Date Status Disposition Source [facility] [id number] 10/11 [facility] [id number] 10/11 [facility] [id number] 10/14 [facility] En[facility] [id number] 10/14 [facility] OFFICE O/P NEW MOD 45 MIN [id number] Diagnos is: ICD-10- CM 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, unspeci MARILUZ Grider 10/20 [facility] [id number] Diagnos is: ICD-10- CM E66.09 Other obesity due to excess calorie s MANEKAS,DI NA L 11/17 [facility] En[facility] [id number] 11/25 [facility] En[facility] [id number] Diagnos is: ICD-10- CM E66.09 Other obesity due to excess calorie s MANEKAS,DI NA L 12/13 [facility] En[facility] [id number] 01/10 [facility] En[facility] [id number] Diagnos is: ICD-10- CM E66.09 Other obesity due to excess calorie s MANEKAS,DI NA L 01/13 [facility] En[facility] [id number] 02/20 [facility] En[facility] [id number] Diagnos is: ICD-10- CM E66.09 Other obesity due to excess calorie s MANEKAS,DI NA L 02/20 [facility] En[facility] [id number] SARAH GARCIA ISTOPHER E 02/23 [facility] Encounter [id number] Diagnos is: ICD-10- CM E66.09 Other obesity due to excess calorie s MANDARINELAS,DI NA L 03/13 [facility] Outpatient [facility]counter [id number] 03/27 [facility] Outpatient Encounter [id number] Diagnos is: ICD-10- CM E66.09 Other obesity due to excess calorie s MANEKAS,DI NA L 04/14 [facility] Outpatient [facility]counter [id number] 05/02 [facility] Social History Combined list of available smoking, tobacco, and other social 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 Social History Type Response Date Comment Sourc e Tobacco smoking status [facility] NEVER USED 10[facility]15[facility]2023 [facility] Plan of Care List of future care activities from Department of Veterans Affairs facilities. Additional future care activities may be listed in the Assessment and Plan section. 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
--- OUTSIDE RECORDS SUMMARY | 2024-09-27 17:43 | XMS_ITS | Referral Summary ---
Author Organization [facility] Address [address] [place] [address] Care Team Providers Care Registered Midwife Name Role Phone Gabby Kelly Primary Care Provider [phone] Encounters Date Type Department Care Team Description 08/15/2024 10:00 AM EST - 08/15/2024 11:59 PM EST Hospital Encounter [facility] [address] [place] [address] Vikram Barbour MD Chronic cough Discharge Disposition: Home or Self Care () 08/15/2024 11:00 AM EST Office Visit [facility] [address] [place] [address] Compensation And Hris Analyst: Vikram Pace MD Chronic cough (Primary Dx) [...] Not on file Procedures * Due to [place] [employer] law, this organization might not be sharing negative HIV tests. Procedure Name Priority Date/Time Associated Diagnosis Comments XR CHEST 2 VW Routine 08/15/2024 10:05 AM EST Chronic cough from Last 3 Months Results * Due to [place] [employer] law, this organization might not be [...] obtain the completed interpretation. ? Workstation ID: [id number] Narrative 08/16/2024 9:37 AM EST COMPARISON: ??None FINDINGS AND Resulting Agency Comment [id number] Procedure Note Vikram Fiore MD - 08/16/2024 [...] possible to obtain thecompleted interpretation. Workstation ID: [id number] us Vikram Barbour MD IMG XR PROCEDURES Final Res ult from Last 3 Months Insurance [facility] Care Teams Registered Midwife Relationship Specialty Start Date End Date Gabby Kelly 1961 [facility] [place] [address] PCP - General Internal Medicine 08/15/24
--- OUTSIDE RECORDS SUMMARY | 2024-09-27 17:43 | XMS_ITS | Clinical Summary ---
Author Organization [facility] Address [address] [place] [address] Care Team Providers Care Emergency Department Clinician Name Role Phone Gabby Kelly Primary Care Provider [phone] Allergies No known active allergies Medications amLODIPine [...] Description 08/15/2024 11:00 AM EST Office Visit [facility] [address] [place] [address] Cushion Gum Applicator: Vikram Pace MD Chronic cough (Primary Dx) 08/15/2024 10:00 AM EST - 08/15/2024 11:59 PM EST Hospital Encounter [facility] [address] [place] [address] Vikram Barbour MD Chronic cough Discharge Disposition: [...] Additional history exists Procedures * Due to [place] [employer] law, this organization might not be sharing negative HIV tests. Procedure Name Priority Date/Time Associated Diagnosis Comments XR CHEST 2 VW Routine 08/15/2024 10:05 AM EST Chronic cough from Last 3 Months Results * Due to [place] [employer] law, this organization might not be sharing [...] obtain the completed interpretation. ? Workstation ID: [id number] Narrative 08/16/2024 9:37 AM EST COMPARISON: ??None FINDINGS AND Resulting Agency Comment [id number] Procedure Note Vikram Fiore MD - 08/16/2024 [...] possible to obtain thecompleted interpretation. Workstation ID: [id number] us Vikram Barbour MD IMG XR PROCEDURES Final Res ult from Last 3 Months Insurance [facility] Care Teams Emergency Department Clinician Relationship Specialty Start Date End Date Gabby Kelly [address] [place] [address] PCP - General Internal Medicine 08/15/24
--- OUTSIDE RECORDS SUMMARY | 2024-09-27 17:43 | XMS_ITS | Clinical Summary ---
Author Organization [facility] Address [address] [facility] [address] [place] [address] Phone Care Team Providers Care Business Advisor Name Role Phone Gabby Kelly MD Primary Care Provider [phone] Allergies No known active allergies Medications Multiple Vitamins-Wise als (MULTIVITAMIN ADULT EXTRA C PO) Take [...] Influenza Vaccine (#1) 2024 Insurance MEDICAID [facility] [place] [address] MEDICAID [place] [facility] Care Teams Business Advisor Relationship Specialty Start Date End Date Gabby Kelly MD [address] [place] [address] PCP - General 07/08/20
== END 2024-09-27 15:57 | disposition home or self-care (01) ==
LOC: HO.PMC 15:22
PROVIDERS: PCP Internal Medicine; Visit Provider Anesthesiology
DX: M16.9 Osteoarthritis of hip, unspecified (principal); M47.816 Spondylosis without myelopathy or radiculopathy, lumbar region; E11.42 Type 2 diabetes mellitus with diabetic polyneuropathy; G90.523 Complex regional pain syndrome I of lower limb, bilateral; M53.3 Sacrococcygeal disorders, not elsewhere classified; M46.1 Sacroiliitis, not elsewhere classified; M47.815 Spondylosis without myelopathy or radiculopathy, thoracolumbar region; M51.369 Other intervertebral disc degeneration, lumbar region without mention of lumbar back pain or lower extremity pain; Z96.89 Presence of other specified functional implants
CPT/HCPCS: 99213

== ENCOUNTER 2024-09-28 14:00 | Outpatient (RCR) | payer OTHER, SELFPAY ==
--- NOTE | 2024-08-16 11:32 | MHC.PT.EP ---
[facility] [place] Office [place] Office [place] Office [address] Aurora Rand [address] [phone] F: [phone] F: [phone] F: [phone] F: [phone] Physical Therapy Plan of Care Date of Evaluation: 08/16/24 Date of Surgery: Diagnosis: low back pain Assessment: Patient is a 58 year old R handed male who presents with s/s consistent with low back pain. 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 Patient past medical history includes chronic back pain, DM, KRISTIN, Bipolar disorder and obesity. Current impairments include pain, posture, flexibility, ROM, strength, activity tolerance and functional mobility. Functional limitations include decreased ability to walk, stand, bend, lift, carry, sit, push and pull. Patient is motivated with good rehab potential. Skilled PT will address impairments and functional limitations in order to achieve goals. Frequency and Duration: The patient will be seen 2x/weeks for 5 weeks Short Term Goals: I with HEP - 2 weeks AROM rotation 75% - 3 weeks 90/90 lacking 30 or less - 3 weeks min tight b/l gastroc - 3 weeks Able to walk 15 minutes without increased pain - 3 weeks Able to stand 15 minutes without increased pain - 3 weeks Marbleizer Goals: 90/90 lacking 24 or less - 5 weeks Hip strength 4+/5 grossly - 5 weeks Oswestry 18% or better - 5 weeks Able to walk and stand > 20 minutes - 5 weeks Treatment Plan: Modalities to reduce pain, spasms and effusion. Manual therapy to restore motion and function. Therapeutic exercise to improve strength and flexibility. Neuromuscular re-education for posture and balance. Therapeutic activities to return to functional activities of daily living. Electronically signed by: Vikram Woo, PT Please sign and return to therapist. Thank you for your referral.
--- NOTE | 2025-01-16 10:25 | MHC.PT.DC ---
[facility] [place] [facility] [place] [facility] [place] [facility] [address] Aurora Rand [address] [phone] F: [phone] F: [phone] F: [phone] F: [phone] Physical Therapy Discharge Report Diagnosis: low back pain Date of Surgery: Date of Evaluation: 08/16/24 Date of Discharge: 10/28/24 Treatments to Date: 9 Cancellations to Date: No Shows to Date: Discharge Status: Improved Function Independent with HEP Discharge Summary: 09/28/24: we discussed the plan at length with patient as well as response to skilled PT. No notes unchanged pain and minimal functional gains. We decided to hold on skilled PT at this time and d/c to HEP as pt will follow up with MD. all questions answered. 09/21; Pt challenged with balance exs with no foam. Hip fatigued after exs. pt struggles with tab;e transfer. 09/19; Pt unable to perform some exs due to pain. Modified program to pt zhane. Pt felt relief from manual Rx. 09/06; Pt stated he felt a little better after gentle mobilization. Pt guarded with gait. If pt noticed reduction in sxs increase mobs 11. 08/31; Pt fatigued after hip strengthening. Pt deconditioned shaking U.E with piriformis stretch. Tight PVM's QL. Pt had pain with poor transfer supine to sit. 08/29/24: pt progressing well with skilled PT. continue to progress strength and manage pain back. 08/24/24: pt has been having pain still but with improved activity tolerance and no adverse reactions from the above program. progress and issued HEP. 08/22/24: pt progressing well overall with skilled PT. increased flex/strength/overall activity. assess response and progress as tolerated - add HEP. Patient is a 58 year old R handed male who presents with s/s consistent with low back pain. 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 Patient past medical history includes chronic back pain, DM, KRISTIN, Bipolar disorder and obesity. Current impairments include pain, posture, flexibility, ROM, strength, activity tolerance and functional mobility. Functional limitations include decreased ability to walk, stand, bend, lift, carry, sit, push and pull. Patient is motivated with good rehab potential. Skilled PT will address impairments and functional limitations in order to achieve goals. Electronically signed by: Vikram Woo, PT Please sign and return to therapist. Thank you for your referral.
== END 2025-01-16 10:25 | disposition home or self-care (01) ==
LOC: HO.PTCHIC 14:00
PROVIDERS: PCP Internal Medicine; Visit Provider Internal Medicine
DX: M54.50 Low back pain, unspecified (principal)
CPT/HCPCS: 97110; 97140; 97162

== ENCOUNTER 2024-10-24 16:33 | Outpatient (REF) | payer OTHER, SELFPAY ==
--- NOTE | ~2024-10-24 | MR_ITS ---
EXAMINATION: MR LUMBAR SPINE WITHOUT CONTRAST CLINICAL INFORMATION: Spondylosis without adenopathy or radiculopathy. COMPARISON: April 04, 2020. TECHNIQUE: MRI of the lumbar spine was obtained using routine sequences without contrast. FINDINGS: Last rib-bearing vertebra labeled T12. Paramagnetic field distortion secondary to metallic neurostimulator device in the deep fat planes of the soft tissues posterior lumbar region from L2 to L3 with electrodes entering at T12-L1 towards the thoracic spine. Mild subtle bone marrow STIR signal in the endplates of L5-S1. And the posterior elements/posterior spinous processes of L1. Multilevel marginal osteophyte formation and disc desiccation throughout the lower thoracic spine and the lumbar spine. There is a grade 1 retrolisthesis L5-S1. Focal hyperintense T2 signal in the posterior intervertebral disc of L4 and L5 likely related to annular fissure. Conus medullaris ends at inferior endplate of L1 with normal signal. T12-L1: Paramagnetic field distortion. No gross disc herniation or neuroforamina stenosis. L1-2: No disc herniation. No neuroforamina stenosis. L2-3: Broad-based disc bulging. Facet joint hypertrophy. No compression upon neural elements. L3-4: Broad-based disc bulging. Facet joint hypertrophy. No compression upon neural elements. L4-5: Central broad-based disc herniation resulting in ventral indentation to the thecal sac and abutting the L5 nerve roots on the lateral recesses. Bilateral facet joint hypertrophy. Bilateral neuroforamina narrowing without compressing the exiting nerve root. L5-S1: Central/right subarticular and foraminal broad-based disc herniation abutting the right S1 nerve root and the right L5 nerve root. Right neuroforamina stenosis. Left neuroforamina narrowing on a degenerative basis. No prevertebral compartment hematoma, mass or fluid collection. MR/MR lumbar spine wo con IMPRESSION: Multilevel thoracolumbar spondylosis involving mostly the L4-5 and the L5-S1 levels. . Central/right subarticular and foraminal broad-based disc herniation L5-S1 abutting the right S1 likely compressing the right L5 nerve roots. Electronically signed by: Esdras Aguila MD 10/26/2024 10:27 AM EDT
--- OUTSIDE RECORDS SUMMARY | 2024-10-24 18:38 | XMS_ITS | Clinical Summary ---
Author Organization [facility] Address [address] [facility] [address] [place] [address] Phone Care Team Providers Care Home Visitor Name Role Phone Gabby Kelly MD Primary Care Provider [phone] Allergies No known active allergies Medications Multiple Vitamins-Laurens als (MULTIVITAMIN ADULT EXTRA C PO) Take [...] Health Maintenance Due Date Last Done Comments Hepatitis B Vaccine (1 of 3 - 19+ 3-dose series) 08/26 Pneumococcal Vaccine: 50+ Years (1 of 2 - PCV) 985 Colorectal Cancer Screening: Annual FOBT 2014 Colorectal Cancer Screening: Colonoscopy 2014 Colorectal Cancer Screening: Sigmoidoscopy 2014 Diabetes: Hemoglobin A1C 07/28/2020 Diabetes: Ophthalmology Exam 07/28/2020 Diabetes: Pedal Pulse Checked 07/28/2020 Diabetes: Sensory Foot Exam 07/28/2020 Diabetes: Visual Foot Exam 07/28/2020 Influenza Vaccine (Season Ended) 2025 Insurance Medicaid [facility] Medicaid [place] [facility] Care Teams Home Visitor Relationship Specialty Start Date End Date Gabby Kelly MD [facility] [place] [address] PCP - General 07/08/20
--- OUTSIDE RECORDS SUMMARY | 2024-10-24 18:38 | XMS_ITS | Continuity of Care Document ---
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 Name Role Phone DOD-[facility] Unavailable Unavailable Problems Combined list of problems [...] [place] [facility] Exposure to potentially hazardous substance ([facility] [id number] ) Active Condition Oct 22, 2023 Entered [...] Site Reaction Lot Number CVX Code Drug Paid Search Marketing Analyst Status Comments Source INFLUENZA, UNSPECIFIED FORMULATION 2022 88 complet ed HISTORICA L INFORMATI ON - FROM OTHER REGISTRY, [facility] [place] COVID-19 (MODERNA), MRNA, LNP-S, PF, 100 MCG/0.5ML DOSE OR 50 MCG/0.25ML DOSE 2020 207 complet ed Booster for Series, HISTORICA L INFORMATI ON - FROM OTHER PROVIDER, [facility] [place] COVID-19 (PFIZER), MRNA, LNP-S, PF, 30 MCG/0.3 ML DOSE 2 2020 208 complet ed HISTORICA L INFORMATI ON - [facility] COVID-19 (PFIZER), MRNA, LNP-S, PF, 30 MCG/0.3 ML DOSE 1 2020 208 complet ed HISTORICA L INFORMATI ON - [facility] Results Combined list of recent chemistry, hematology [...] Oct 21, 2023 02:15 PM Reporting Lab: [address] [address] Performing Lab: [address] [address] [facility] HEPATITI S B SURFACE ANTIBODY (HBsAb)- WH HEPATITIS B VIRUS SURFACE AB [PRESENCE] IN SERUM BY IMMUNOASSA Y Non Reactive 10/20 Specimen Type: SERUM No comment entered. Ordering Provider: Pablo STEWART Report Released Date/Time: Oct 21, 2023 02:15 PM Reporting Lab: [address] [address] Performing Lab: [facility] [address] [facility] [address] [facility] HEMOGLOB IN A1C PANEL HEMOGLOBIN A1C/HEMOGL [...] Oct 21, 2023 02:15 PM Reporting Lab: [address] [address] Performing Lab: [address] [address] [facility] URINALYS IS COLOR OF URINE Yellow 10/20 Specimen Type: URINE Comment: If Glucose = >500 and Ketones are positive, please alert the Physician. Ordering Provider: Pablo STEWART Report Released Date/Time: Oct 21, 2023 02:15 PM Reporting Lab: [facility] [address] [facility] [address] Performing Lab: [facility] [address] [facility] URINALYS IS APPEARANCE OF URINE Clear 10/20 Specimen Type: URINE Comment: If Glucose = >500 and Ketones are positive, please alert the Physician. Ordering Provider: Pablo STEWART Report Released Date/Time: Oct 21, 2023 02:15 PM Reporting Lab: [facility] [address] [facility] [address] Performing Lab: [address] [address] [facility] URINALYS IS GLUCOSE [MASS/VOLU ME] IN URINE NEGATIVE mg/dL 10/20 Specimen Type: URINE Comment: If Glucose = >500 and Ketones are positive, please alert the Physician. Ordering Provider: Pablo STEWART Report Released Date/Time: Oct 21, 2023 02:15 PM Reporting Lab: [facility] [place] [address] [address] Performing Lab: [facility] [place] [facility] [address] [facility] [address] [facility] [place] [facility] URINALYS IS KETONES [MASS/VOLU ME] IN URINE BY TEST STRIP NEGATIVE mg/dL 10/20 Specimen Type: URINE Comment: If Glucose = >500 and Ketones are positive, please alert the Physician. Ordering Provider: Pablo STEWART Report Released Date/Time: Oct 21, 2023 02:15 PM Reporting Lab: [facility] [place] [facility] [address] [facility] [address] Performing Lab: [facility] [place] [facility] [address] [facility] [address] [facility] [place] [facility] URINALYS IS ERYTHROCYT ES [PRESENCE] IN URINE SEDIMENT BY LIGHT MICROSCOPY NEGATIVE mg/dL 10/20 Specimen Type: URINE Comment: If Glucose = >500 and Ketones are positive, please alert the Physician. Ordering Provider: Pablo STEWART Report Released Date/Time: Oct 21, 2023 02:15 PM Reporting Lab: [facility] [place] [facility] [address] [facility] [address] Performing Lab: [facility] [place] [address] [address] [facility] [place] [facility] URINALYS IS PROTEIN [MASS/VOLU ME] IN URINE BY TEST STRIP 20 mg/dL 10/20 Specimen Type: URINE Comment: If Glucose = >500 and Ketones are positive, please alert the Physician. Ordering Provider: Pablo TSEWART Report Released Date/Time: Oct 21, 2023 02:15 PM Reporting Lab: [facility] [place] [facility] [address] [facility] [address] Performing Lab: [facility] [place] [facility] [address] [facility] [address] [facility] URINALYS IS NITRITE [PRESENCE] IN URINE NEGATIVE mg/dL 10/20 Specimen Type: URINE Comment: If Glucose = >500 and Ketones are positive, please alert the Physician. Ordering Provider: Pablo STEWART Report Released Date/Time: Oct 21, 2023 02:15 PM Reporting Lab: [facility] [place] [facility] [address] [facility] [address] Performing Lab: [facility] [place] [facility] [address] [facility] [address] [facility] [place] URINALYS IS BILIRUBIN. TOTAL [PRESENCE] IN URINE NEGATIVE mg/dL 10/20 Specimen Type: URINE Comment: If Glucose = >500 and Ketones are positive, please alert the Physician. Ordering Provider: Pablo STEWART Report Released Date/Time: Oct 21, 2023 02:15 PM Reporting Lab: [facility] [place] [facility] [address] [facility] [address] Performing Lab: [facility] [place] [facility] [address] [facility] [address] [facility] URINALYS IS SPECIFIC GRAVITY OF URINE BY REFRACTOME TRY 1.024 1.016 - 1.022 10/20 H Specimen Type: URINE Comment: If Glucose = >500 and Ketones are positive, please alert the Physician. Ordering Provider: Pablo STEWART Report Released Date/Time: Oct 21, 2023 02:15 PM Reporting Lab: [facility] [place] [facility] [address] [facility] [address] Performing Lab: [facility] [place] [facility] [address] [facility] [address] [facility] [place] URINALYS IS PH OF URINE BY TEST STRIP 6.0 5.0 - 9.0 10/20 Specimen Type: URINE Comment: If Glucose = >500 and Ketones are positive, please alert the Physician. Ordering Provider: Pablo STEWART Report Released Date/Time: Oct 21, 2023 02:15 PM Reporting Lab: [facility] [place] [facility] [address] [facility] [address] Performing Lab: [facility] [place] [facility] [address] [facility] [address] [facility] [place] [facility] URINALYS IS UROBILINOG EN [MASS/VOLU ME] IN URINE BY TEST STRIP <2.0mg/d L <2.0 - 2.0 10/20 Specimen Type: URINE Comment: If Glucose = >500 and Ketones are positive, please alert the Physician. Ordering Provider: Pablo STEWART Report Released Date/Time: Oct 21, 2023 02:15 PM Reporting Lab: [facility] [place] [facility] [address] [facility] [address] Performing Lab: [facility] [place] [facility] [address] [facility] [address] [facility] [place] [facility] URINALYS IS LEUKOCYTE ESTERASE [PRESENCE] IN URINE BY TEST STRIP NEGATIVE 10/20 Specimen Type: URINE Comment: If Glucose = >500 and Ketones are positive, please alert the Physician. Ordering Provider: Pablo STEWART Report Released Date/Time: Oct 21, 2023 02:15 PM Reporting Lab: [facility] [place] [facility] [address] [facility] [address] Performing Lab: [facility] [place] [facility] [address] [facility] [address] [facility] [place] [facility] MICROALB UMIN CREATINI NE RATIO PANEL MICROALBUM IN/CREATIN INE [MASS RATIO] IN URINE 6.2 mg/g 0 - 29.9 10/20 Specimen Type: URINE No comment entered. Ordering Provider: VANWAGNER,W ILLIAM F Report Released Date/Time: Oct 21, 2023 02:15 PM Reporting Lab: [facility] [place] [address] [facility] [address] Performing Lab: [facility] [place] [facility] [address] [facility] [address] [facility] [place] [facility] MICROALB UMIN CREATINI NE RATIO PANEL MICROALBUM IN [MASS/VOLU ME] IN URINE 1.5 mg/dL 10/20 Specimen Type: URINE No comment entered. Ordering Provider: Pablo STEWART Report Released Date/Time: Oct 21, 2023 02:15 PM Reporting Lab: [facility] [place] [facility] [address] [facility] [address] Performing Lab: [facility] [place] [facility] [address] [facility] [address] [facility] [place] [facility] MICROALB UMIN CREATINI NE RATIO PANEL CREATININE [MASS/VOLU ME] IN URINE 240.98 mg/dL 10/20 Specimen Type: URINE No comment entered. Ordering Provider: Pablo STEWART Report Released Date/Time: Oct 21, 2023 02:15 PM Reporting Lab: [facility] [place] [facility] [address] [facility] [address] Performing Lab: [facility] [place] [facility] [address] [facility] [address] [facility] [place] [facility] URIC ACID URATE [MASS/VOLU ME] IN SERUM OR PLASMA 5.4 mg/dL 3.5 - 7.2 10/20 Specimen Type: SERUM No comment entered. Ordering Provider: Pablo STEWART Report Released Date/Time: Oct 21, 2023 02:15 PM Reporting Lab: [facility] [place] [facility] [address] [facility] [address] Performing Lab: [facility] [place] [facility] [address] [facility] [address] [facility] [place] [facility] CBC AND DIFF (AUTO) LEUKOCYTES [#/VOLUME] IN BLOOD BY AUTOMATED COUNT 5.99 10*3/uL 4.50 - 11.00 10/20 Specimen Type: BLOOD No comment entered. Ordering Provider: Pablo STEWART Report Released Date/Time: Oct 21, 2023 02:23 PM Reporting Lab: [facility] [place] [facility] [address] [facility] [address] Performing Lab: [facility] [place] [facility] [address] [facility] [address] [facility] [place] [facility] CBC AND DIFF (AUTO) ERYTHROCYT ES [#/VOLUME] IN BLOOD BY AUTOMATED COUNT 4.47 10*6/uL 4.23 - 5.66 10/20 Specimen Type: BLOOD No comment entered. Ordering Provider: Pablo STEWART Report Released Date/Time: Oct 21, 2023 02:23 PM Reporting Lab: [facility] [place] [address] [address] Performing Lab: [facility] [place] [facility] [address] [facility] [address] [facility] [place] [facility] CBC AND DIFF (AUTO) HEMOGLOBIN [MASS/VOLU ME] IN BLOOD 14.0 g/dL 12.8 - 17 10/20 Specimen Type: BLOOD No comment entered. Ordering Provider: Pablo STEWART Report Released Date/Time: Oct 21, 2023 02:23 PM Reporting Lab: [facility] [place] [facility] [address] [facility] [address] Performing Lab: [facility] [place] [facility] [address] [facility] [address] [facility] [place] [facility] CBC AND DIFF (AUTO) HEMATOCRIT [VOLUME FRACTION] OF BLOOD BY AUTOMATED COUNT 40.0 39.2 - 50.4 10/20 Specimen Type: BLOOD No comment entered. Ordering Provider: Pablo STEWART Report Released Date/Time: Oct 21, 2023 02:23 PM Reporting Lab: [facility] [place] [address] [address] Performing Lab: [facility] [place] [facility] [address] [facility] [address] [facility] [place] [facility] CBC AND DIFF (AUTO) MCV [ENTITIC VOLUME] BY AUTOMATED COUNT 89.5 fL 82 - 99 10/20 Specimen Type: BLOOD No comment entered. Ordering Provider: Pablo STEWART Report Released Date/Time: Oct 21, 2023 02:23 PM Reporting Lab: [facility] [place] [facility] [address] [facility] [address] Performing Lab: [facility] [place] [facility] [address] [facility] [address] [facility] [place] [facility] CBC AND DIFF (AUTO) MCHC [MASS/VOLU ME] BY AUTOMATED COUNT 35.0 g/dL 30.8 - 35.1 10/20 Specimen Type: BLOOD No comment entered. Ordering Provider: Pablo STEWART Report Released Date/Time: Oct 21, 2023 02:23 PM Reporting Lab: [facility] [place] [facility] [address] [facility] [address] Performing Lab: [facility] [place] [facility] [address] [facility] [address] [facility] [place] [facility] CBC AND DIFF (AUTO) PLATELETS [#/VOLUME] IN BLOOD BY AUTOMATED COUNT 211 10*3/uL 140 - 360 10/20 Specimen Type: BLOOD No comment entered. Ordering Provider: Pablo STEWART Report Released Date/Time: Oct 21, 2023 02:23 PM Reporting Lab: [facility] [place] [facility] [address] [facility] [address] Performing Lab: [facility] [place] [facility] [address] [facility] [address] [facility] [place] [facility] CBC AND DIFF (AUTO) ERYTHROCYT E DISTRIBUTI ON WIDTH [RATIO] BY AUTOMATED COUNT 12.3 12.0 - 16.0 10/20 Specimen Type: BLOOD No comment entered. Ordering Provider: VANWAGNER,W ILLIAM F Report Released Date/Time: Oct 21, 2023 02:23 PM Reporting Lab: [facility] [place] [facility] [address] [facility] [address] Performing Lab: [facility] [place] [facility] [address] [facility] [address] [facility] [place] CBC AND DIFF (AUTO) MONOCYTES [#/VOLUME] IN BLOOD BY AUTOMATED COUNT 0.38 10*3/uL 0.30 - 1.10 10/20 Specimen Type: BLOOD No comment entered. Ordering Provider: Pablo STEWART Report Released Date/Time: Oct 21, 2023 02:23 PM Reporting Lab: [facility] [place] [facility] [address] [facility] [address] Performing Lab: [facility] [place] [facility] [address] [facility] [address] [facility] CBC AND DIFF (AUTO) MCH [ENTITIC MASS] BY AUTOMATED COUNT 31.3 pg 26.2 - 32.6 10/20 Specimen Type: BLOOD No comment entered. Ordering Provider: Pablo STEWART Report Released Date/Time: Oct 21, 2023 02:23 PM Reporting Lab: [facility] [place] [facility] [address] [facility] [address] Performing Lab: [facility] [place] [facility] [address] [facility] [address] [facility] [place] CBC AND DIFF (AUTO) NEUTROPHIL S/100 LEUKOCYTES IN BLOOD BY AUTOMATED COUNT 72.5 43.7 - 75.8 10/20 Specimen Type: BLOOD No comment entered. Ordering Provider: Pablo STEWART Report Released Date/Time: Oct 21, 2023 02:23 PM Reporting Lab: [facility] [place] [facility] [address] [facility] [address] Performing Lab: [facility] [place] [facility] [address] [facility] [address] [facility] [place] CBC AND DIFF (AUTO) LYMPHOCYTE S/100 LEUKOCYTES IN BLOOD BY AUTOMATED COUNT 17.5 14.0 - 42.3 10/20 Specimen Type: BLOOD No comment entered. Ordering Provider: Pablo STEWART Report Released Date/Time: Oct 21, 2023 02:23 PM Reporting Lab: [facility] [place] [facility] [address] [facility] [address] Performing Lab: [facility] [place] [facility] [address] [facility] [address] [facility] CBC AND DIFF (AUTO) MONOCYTES/ 100 LEUKOCYTES IN BLOOD BY AUTOMATED COUNT 6.3 5.1 - 13.7 10/20 Specimen Type: BLOOD No comment entered. Ordering Provider: Pablo STEWART Report Released Date/Time: Oct 21, 2023 02:23 PM Reporting Lab: [facility] [place] [facility] [address] [facility] [address] Performing Lab: [facility] [place] [facility] [address] [facility] [address] [facility] CBC AND DIFF (AUTO) EOSINOPHIL S/100 LEUKOCYTES IN BLOOD BY AUTOMATED COUNT 2.7 0.4 - 6.8 10/20 Specimen Type: BLOOD No comment entered. Ordering Provider: Pablo STEWART Report Released Date/Time: Oct 21, 2023 02:23 PM Reporting Lab: [facility] [place] [facility] [address] [facility] [address] Performing Lab: [facility] [place] [facility] [address] [facility] [address] [facility] [place] CBC AND DIFF (AUTO) BASOPHILS/ 100 LEUKOCYTES IN BLOOD BY AUTOMATED COUNT 0.8 0.1 - 2.0 10/20 Specimen Type: BLOOD No comment entered. Ordering Provider: Pablo STEWART Report Released Date/Time: Oct 21, 2023 02:23 PM Reporting Lab: [facility] [place] [facility] [address] [facility] [address] Performing Lab: [facility] [place] [facility] [address] [facility] [address] [facility] [place] [facility] CBC AND DIFF (AUTO) NEUTROPHIL S [#/VOLUME] IN BLOOD BY AUTOMATED COUNT 4.34 10*3/uL 2.20 - 7.60 10/20 Specimen Type: BLOOD No comment entered. Ordering Provider: Pablo STEWART Report Released Date/Time: Oct 21, 2023 02:23 PM Reporting Lab: [facility] [place] [address] [address] Performing Lab: [facility] [place] [address] [address] [facility] [place] [facility] CBC AND DIFF (AUTO) LYMPHOCYTE S [#/VOLUME] IN BLOOD BY AUTOMATED COUNT 1.05 10*3/uL 1.00 - 3.20 10/20 Specimen Type: BLOOD No comment entered. Ordering Provider: Pablo STEWART Report Released Date/Time: Oct 21, 2023 02:23 PM Reporting Lab: [facility] [place] [address] [address] Performing Lab: [facility] [place] [address] [address] [facility] [place] [facility] CBC AND DIFF (AUTO) EOSINOPHIL S [#/VOLUME] IN BLOOD BY AUTOMATED COUNT 0.16 10*3/uL 0.03 - 0.44 10/20 Specimen Type: BLOOD No comment entered. Ordering Provider: Pablo STEWART Report Released Date/Time: Oct 21, 2023 02:23 PM Reporting Lab: [facility] [place] [address] [address] Performing Lab[facility] [place] [address] [address] [facility] [place] [facility] CBC AND DIFF (AUTO) BASOPHILS [#/VOLUME] IN BLOOD BY AUTOMATED COUNT 0.05 10*3/uL 0.01 - 0.13 10/20 Specimen Type: BLOOD No comment entered. Ordering Provider: Pablo STEWART Report Released Date/Time: Oct 21, 2023 02:23 PM Reporting Lab: [facility] [place] [facility] [address] [facility] [address] Performing Lab: [facility] [place] [facility] [address] [facility] [address] [facility] [place] [facility] CBC AND DIFF (AUTO) IMMATURE GRANULOCYT ES/100 LEUKOCYTES IN BLOOD BY AUTOMATED COUNT 0.2 0.0 - 0.7 10/20 Specimen Type: BLOOD No comment entered. Ordering Provider: Pablo STEWART Report Released Date/Time: Oct 21, 2023 02:23 PM Reporting Lab: [facility] [place] [address] [address] Performing Lab: [facility] [place] [address] [address] [facility] [place] [facility] CBC AND DIFF (AUTO) IMMATURE GRANULOCYT ES [#/VOLUME] IN BLOOD 0.01 10*3/uL 0.00 - 0.06 10/20 Specimen Type: BLOOD No comment entered. Ordering Provider: Pablo STEWART Report Released Date/Time: Oct 21, 2023 02:23 PM Reporting Lab: [facility] [place] [address] [address] Performing Lab: [facility] [place] [address] [address] [facility] [place] [facility] TSH THYROTROPI N [UNITS/VOL UME] IN SERUM OR PLASMA 1.46 u[IU]/mL 0.35 - 5.00 10/20 Specimen Type: SERUM No comment entered. Ordering Provider: Pablo STEWART Report Released Date/Time: Oct 21, 2023 02:15 PM Reporting Lab: [facility] [place] [address] [address] Performing Lab: [facility] [place] [address] [address] [facility] [place] [facility] HIV 1&2 Ag/Ab SCREEN HIV 1+2 AB+HIV1 P24 AG [PRESENCE] IN SERUM OR PLASMA BY IMMUNOASSA Y NON-REAC TIVE 10/20 Specimen Type: SERUM No comment entered. Ordering Provider: Pablo STEWART Report Released Date/Time: Oct 21, 2023 02:15 PM Reporting Lab: [facility] [place] [facility] [address] [facility] [address] Performing Lab: [facility] [place] [facility] [address] [facility] [address] [facility] [place] [facility] HEPATITI S C ANTIBODY (HCV)-AR C HEPATITIS C VIRUS AB [PRESENCE] IN SERUM NON-REAC TIVE 10/20 Specimen Type: SERUM Comment: Hep C Ab: No HCV antibody detected. If recent infection is suspected or other evidence suggests HCV infection, consider HCV nucleic acid testing Ordering Provider: Pablo STEWART Report Released Date/Time: Oct 21, 2023 02:15 PM Reporting Lab: [facility] [place] [facility] [address] [facility] [address] Performing Lab: [facility] [place] [facility] [address] [facility] [address] [facility] [place] [facility] Vital Signs Combined list of inpatient and outpatient Vital Signs from Department of Defense and Veterans Affairs, ranging from 12 months to all on record, depending upon the facility. Vital Sign Value Date Comments Source WEIGHT 305 04/27/2024 15:05:35 [facility] BMI 38 kg/m2 04/27/2024 15:05:35 [facility] WEIGHT 304 03/24/2024 13:20:57 [facility] BMI 38 kg/m2 03/24/2024 13:20:57 [facility] WEIGHT 302 01/25/2024 14:53:18 [facility] BMI 38 kg/m2 01/25/2024 14:53:18 [facility] Encounters Combined list of: [...] Disposition Source [facility] Outpatient Encounter [id number] 10/11 [facility] [id number] 10[facility]11 [facility] Outpatient [facility]counter [id number] 10/14 [facility] Outpatient Encounter [id number] 10/14 [facility] OFFICE O/P NEW MOD 45 MIN [id number] Diagnos is: ICD-10- CM 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, unspeci MARILUZ Grider 10/20 [facility] Outpatient Encounter [id number] Diagnos is: ICD-10- CM E66.09 Other obesity due to excess calorie s IAM LUDWIG NA L 11/17 [facility] Outpatient Encounter [id number] 11/25 [facility] Outpatient Encounter [id number] Diagnos is: ICD-10- CM E66.09 Other obesity due to excess calorie s MANDAISHA,DI NA L 12/13 [facility] En[facility] [id number] 01/10 [facility] En[facility] [id number] Diagnos is: ICD-10- CM E66.09 Other obesity due to excess calorie s MANEKAS,DI NA L 01/13 [facility] En[facility] [id number] 02/20 [facility] Encounter [id number] Diagnos is: ICD-10- CM E66.09 Other obesity due to excess calorie s MANEKAS,DI NA L 02/20 [facility] Out[facility] Encounter [id number] GARCIA,SARAH ISTOPHER E 02/23 [facility] Outpatient Encounter [id number] Diagnos is: ICD-10- CM E66.09 Other obesity due to excess calorie s MANEKAS,DI NA L 03/13 [facility] En[facility] [id number] 03/27 [facility] Outpatient Encounter [id number] Diagnos is: ICD-10- CM E66.09 Other obesity due to excess calorie s MANEKAS,DI NA L 04/14 [facility] Encounter [id number] 05/02 [facility] Social History Combined list of available smoking, tobacco, and other social 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 Social History Type Response Date Comment Sour e Tobacco smoking status [facility] VA-TOBACCO NEVER USED 10/15/2023 [facility]
== END 2024-10-24 16:34 | disposition home or self-care (01) ==
LOC: HO.MRI 16:33
PROVIDERS: PCP Internal Medicine; Visit Provider Anesthesiology
DX: M47.815 Spondylosis without myelopathy or radiculopathy, thoracolumbar region (principal); M51.369 Other intervertebral disc degeneration, lumbar region without mention of lumbar back pain or lower extremity pain
CPT/HCPCS: 72148

== ENCOUNTER → 2024-10-24 16:33 | Outpatient (BNV) | payer OTHER, SELFPAY | PROVIDERS: PCP Internal Medicine; Visit Provider Radiology Diagnostic Radiology | DX: M47.815 Spondylosis without myelopathy or radiculopathy, thoracolumbar region (principal) | CPT/HCPCS: 72148 ==

== ENCOUNTER 2024-10-27 10:53 | Outpatient (REF) | payer OTHER, SELFPAY ==
--- OUTSIDE RECORDS SUMMARY | 2024-10-27 12:01 | XMS_ITS | Referral Summary ---
Author Organization [facility] Address [address] [place] [address] Care Team Providers Care Fireboat Operator Name Role Phone Gabby Kelly Primary Care Provider [phone] Encounters Date Type Department Care Team Description 08/15/2024 10:00 AM EST - 08/15/2024 11:59 PM EST Hospital Encounter [facility] [address] [place] [address] Vikram Barbour MD Chronic cough Discharge Disposition: Home or Self Care () 08/15/2024 11:00 AM EST Office Visit [facility] [address] [place] [address] Occupational Therapy Instructor: Vikram Pace MD Chronic cough (Primary Dx) [...] Not on file Procedures * Due to [employer] law, this organization might not be sharing negative HIV tests. Procedure Name Priority Date/Time Associated Diagnosis Comments XR CHEST 2 VW Routine 08/15/2024 10:05 AM EST Chronic cough from Last 3 Months Results * Due to [employer] law, this organization might not be sharing [...] obtain the completed interpretation. ? Workstation ID: [id number] Narrative 08/16/2024 9:37 AM EST COMPARISON: ??None FINDINGS AND Resulting Agency Comment [id number] Procedure Note Vikram Fiore MD - 08/16/2024 [...] possible to obtain thecompleted interpretation. Workstation ID: [id number] us Vikram Barbour MD IMG XR PROCEDURES Final Res ult from Last 3 Months Insurance [facility] Care Teams Fireboat Operator Relationship Specialty Start Date End Date Gabby Kelly 1961 [facility] [place] [id number] PCP - General Internal Medicine 08/15/24
--- OUTSIDE RECORDS SUMMARY | 2024-10-27 12:01 | XMS_ITS | Clinical Summary ---
Author Organization [facility] Address [address] [place] [address] Phone Care Team Providers Care Color Buffer Name Role Phone Gabby Kelly MD Primary Care Provider [phone] Allergies No known active allergies Medications Multiple Vitamins-Horseradish Maker als (MULTIVITAMIN ADULT EXTRA C PO) Take [...] Vaccine (Season Ended) 2025 Insurance Medicaid [place] [facility] [place] [facility] Care Teams Color Buffer Relationship Specialty Start Date End Date Gabby Kelly MD [facility] [place] [address] PCP - General 07/08/20
--- OUTSIDE RECORDS SUMMARY | 2024-10-27 12:01 | XMS_ITS | Continuity of Care Document ---
Author Name [facility] Organization [facility] Care Team Providers Care Barmaid Name Role Phone [facility] Unavailable Unavailable Problems Combined list of problems [...] to potentially hazardous substance ([facility] [id number] ) Active Condition Oct 22, 2023 Entered [...] Site Reaction Lot Number CVX Code Drug Base Ply Hand Status Comments Source INFLUENZA, UNSPECIFIED FORMULATION 2022 88 complet ed HISTORICA L INFORMATI ON - FROM OTHER REGISTRY, [facility] [place] COVID-19 (MODERNA), MRNA, LNP-S, PF, 100 MCG/0.5ML DOSE OR 50 MCG/0.25ML DOSE 2020 207 complet ed Booster for Series, HISTORICA L INFORMATI ON - FROM OTHER PROVIDER, [facility] COVID-19 (PFIZER), MRNA, LNP-S, PF, 30 MCG/0.3 ML DOSE 2 2020 208 complet ed HISTORICA L INFORMATI ON - [facility] COVID-19 (PFIZER), MRNA, LNP-S, PF, 30 MCG/0.3 ML DOSE 1 2020 208 complet ed HISTORICA L INFORMATI ON - [facility] Results Combined list of recent [...] Oct 21, 2023 02:15 PM Reporting Lab: [address] [address] Performing Lab: [address] [address] [facility] HEPATITI S B SURFACE ANTIBODY (HBsAb)- WH HEPATITIS B VIRUS SURFACE AB [PRESENCE] IN SERUM BY IMMUNOASSA Y Non Reactive 10/20 Specimen Type: SERUM No comment entered. Ordering Provider: Pablo STEWART Report Released Date/Time: Oct 21, 2023 02:15 PM Reporting Lab: [address] [address] Performing Lab: [facility] [address] [address] [facility] [place] HEMOGLOB IN A1C PANEL HEMOGLOBIN A1C/HEMOGL OBIN.TOTAL [...] Oct 21, 2023 02:15 PM Reporting Lab: [address] [address] Performing Lab: [address] [address] [facility] URINALYS IS COLOR OF URINE Yellow 10/20 Specimen Type: URINE Comment: If Glucose = >500 and Ketones are positive, please alert the Physician. Ordering Provider: Pablo STEWART Report Released Date/Time: Oct 21, 2023 02:15 PM Reporting Lab: [facility] [address] [facility] [address] Performing Lab: [facility] [address] [facility] URINALYS IS APPEARANCE OF URINE Clear 10/20 Specimen Type: URINE Comment: If Glucose = >500 and Ketones are positive, please alert the Physician. Ordering Provider: Pablo STEWART Report Released Date/Time: Oct 21, 2023 02:15 PM Reporting Lab: [facility] [address] [facility] [address] Performing Lab: [address] [address] [facility] URINALYS IS GLUCOSE [MASS/VOLU ME] IN URINE NEGATIVE mg/dL 10/20 Specimen Type: URINE Comment: If Glucose = >500 and Ketones are positive, please alert the Physician. Ordering Provider: Pablo STEWART Report Released Date/Time: Oct 21, 2023 02:15 PM Reporting Lab: [facility] [place] [address] [address] Performing Lab: [facility] [place] [facility] [address] [facility] [address] [facility] [place] URINALYS IS KETONES [MASS/VOLU ME] IN URINE BY TEST STRIP NEGATIVE mg/dL 10/20 Specimen Type: URINE Comment: If Glucose = >500 and Ketones are positive, please alert the Physician. Ordering Provider: Pablo STEWART Report Released Date/Time: Oct 21, 2023 02:15 PM Reporting Lab: [facility] [place] [facility] [address] [facility] [address] Performing Lab: [facility] [place] [facility] [address] [facility] [address] [facility] [place] URINALYS IS ERYTHROCYT ES [PRESENCE] IN URINE SEDIMENT BY LIGHT MICROSCOPY NEGATIVE mg/dL 10/20 Specimen Type: URINE Comment: If Glucose = >500 and Ketones are positive, please alert the Physician. Ordering Provider: Pablo STEWART Report Released Date/Time: Oct 21, 2023 02:15 PM Reporting Lab: [facility] [place] [facility] [address] [facility] [address] Performing Lab: [facility] [place] [address] [address] [facility] [address] [place] URINALYS IS PROTEIN [MASS/VOLU ME] IN URINE BY TEST STRIP 20 mg/dL 10/20 Specimen Type: URINE Comment: If Glucose = >500 and Ketones are positive, please alert the Physician. Ordering Provider: Pablo STEWART Report Released Date/Time: Oct 21, 2023 02:15 PM Reporting Lab: [facility] [place] [address] [facility] [address] Performing Lab: [facility] [address] [facility] [address] [facility] URINALYS IS NITRITE [PRESENCE] IN URINE NEGATIVE mg/dL 10/20 Specimen Type: URINE Comment: If Glucose = >500 and Ketones are positive, please alert the Physician. Ordering Provider: Pablo STEWART Report Released Date/Time: Oct 21, 2023 02:15 PM Reporting Lab: [facility] [address] [facility] [address] Performing Lab: [facility] [place] [facility] [address] [facility] [address] [facility] URINALYS IS BILIRUBIN. TOTAL [PRESENCE] IN URINE NEGATIVE mg/dL 10/20 Specimen Type: URINE Comment: If Glucose = >500 and Ketones are positive, please alert the Physician. Ordering Provider: Pablo STEWART Report Released Date/Time: Oct 21, 2023 02:15 PM Reporting Lab: [facility] [place] [facility] [address] [facility] [address] Performing Lab: [facility] [place] [facility] [address] [facility] [address] [facility] URINALYS IS SPECIFIC GRAVITY OF URINE BY REFRACTOME TRY 1.024 1.016 - 1.022 10/20 H Specimen Type: URINE Comment: If Glucose = >500 and Ketones are positive, please alert the Physician. Ordering Provider: Pablo STEWART Report Released Date/Time: Oct 21, 2023 02:15 PM Reporting Lab: [facility] [place] [facility] [address] [facility] [address] Performing Lab: [facility] [place] [facility] [address] [facility] [address] [facility] URINALYS IS PH OF URINE BY TEST STRIP 6.0 5.0 - 9.0 10/20 Specimen Type: URINE Comment: If Glucose = >500 and Ketones are positive, please alert the Physician. Ordering Provider: Pablo STEWART Report Released Date/Time: Oct 21, 2023 02:15 PM Reporting Lab: [facility] [place] [facility] [address] [facility] [address] Performing Lab: [facility] [place] [facility] [address] [facility] [address] [facility] [place] URINALYS IS UROBILINOG EN [MASS/VOLU ME] IN URINE BY TEST STRIP <2.0mg/d L <2.0 - 2.0 10/20 Specimen Type: URINE Comment: If Glucose = >500 and Ketones are positive, please alert the Physician. Ordering Provider: Pablo STEWART Report Released Date/Time: Oct 21, 2023 02:15 PM Reporting Lab: [facility] [place] [facility] [address] [facility] [address] Performing Lab: [facility] [place] [facility] [address] [facility] [address] [facility] [place] URINALYS IS LEUKOCYTE ESTERASE [PRESENCE] IN URINE BY TEST STRIP NEGATIVE 10/20 Specimen Type: URINE Comment: If Glucose = >500 and Ketones are positive, please alert the Physician. Ordering Provider: Pablo STEWART Report Released Date/Time: Oct 21, 2023 02:15 PM Reporting Lab: [facility] [place] [facility] [address] [facility] [address] Performing Lab: [facility] [place] [facility] [address] [facility] [address] [facility] [facility] MICROALB UMIN CREATINI NE RATIO PANEL MICROALBUM IN/CREATIN INE [MASS RATIO] IN URINE 6.2 mg/g 0 - 29.9 10/20 Specimen Type: URINE No comment entered. Ordering Provider: VANWAGNER,W ILLIAM F Report Released Date/Time: Oct 21, 2023 02:15 PM Reporting Lab: [facility] [address] [facility] [address] Performing Lab: [facility] [place] [facility] [address] [facility] [address] [facility] [place] [facility] MICROALB UMIN CREATINI NE RATIO PANEL MICROALBUM IN [MASS/VOLU ME] IN URINE 1.5 mg/dL 10/20 Specimen Type: URINE No comment entered. Ordering Provider: Pablo STEWART Report Released Date/Time: Oct 21, 2023 02:15 PM Reporting Lab: [facility] [place] [facility] [address] [facility] [address] Performing Lab: [facility] [place] [facility] [address] [facility] [address] [facility] [place] [facility] MICROALB UMIN CREATINI NE RATIO PANEL CREATININE [MASS/VOLU ME] IN URINE 240.98 mg/dL 10/20 Specimen Type: URINE No comment entered. Ordering Provider: Pablo STEWART Report Released Date/Time: Oct 21, 2023 02:15 PM Reporting Lab: [facility] [place] [facility] [address] [facility] [address] Performing Lab: [facility] [place] [facility] [address] [facility] [address] [facility] [facility] URIC ACID URATE [MASS/VOLU ME] IN SERUM OR PLASMA 5.4 mg/dL 3.5 - 7.2 10/20 Specimen Type: SERUM No comment entered. Ordering Provider: Pablo STEWART Report Released Date/Time: Oct 21, 2023 02:15 PM Reporting Lab: [facility] [place] [facility] [address] [facility] [address] Performing Lab: [facility] [place] [facility] [address] [facility] [address] [facility] [facility] CBC AND DIFF (AUTO) LEUKOCYTES [#/VOLUME] IN BLOOD BY AUTOMATED COUNT 5.99 10*3/uL 4.50 - 11.00 10/20 Specimen Type: BLOOD No comment entered. Ordering Provider: Pablo STEWART Report Released Date/Time: Oct 21, 2023 02:23 PM Reporting Lab: [facility] [place] [facility] [address] [facility] [address] Performing Lab: [facility] [place] [facility] [address] [facility] [address] [facility] [place] [facility] CBC AND DIFF (AUTO) ERYTHROCYT ES [#/VOLUME] IN BLOOD BY AUTOMATED COUNT 4.47 10*6/uL 4.23 - 5.66 10/20 Specimen Type: BLOOD No comment entered. Ordering Provider: Palbo STEWART Report Released Date/Time: Oct 21, 2023 02:23 PM Reporting Lab: [facility] [place] [address] [address] Performing Lab: [facility] [place] [facility] [address] [facility] [address] [facility] [place] [facility] CBC AND DIFF (AUTO) HEMOGLOBIN [MASS/VOLU ME] IN BLOOD 14.0 g/dL 12.8 - 17 10/20 Specimen Type: BLOOD No comment entered. Ordering Provider: Pablo STEWART Report Released Date/Time: Oct 21, 2023 02:23 PM Reporting Lab: [facility] [place] [facility] [address] [facility] [address] Performing Lab: [facility] [place] [facility] [address] [facility] [address] [facility] [place] [facility] CBC AND DIFF (AUTO) HEMATOCRIT [VOLUME FRACTION] OF BLOOD BY AUTOMATED COUNT 40.0 39.2 - 50.4 10/20 Specimen Type: BLOOD No comment entered. Ordering Provider: Pablo STEWART Report Released Date/Time: Oct 21, 2023 02:23 PM Reporting Lab: [facility] [place] [address] [address] Performing Lab: [facility] [place] [facility] [address] [facility] [address] [facility] [facility] CBC AND DIFF (AUTO) MCV [ENTITIC VOLUME] BY AUTOMATED COUNT 89.5 fL 82 - 99 10/20 Specimen Type: BLOOD No comment entered. Ordering Provider: Pablo STEWART Report Released Date/Time: Oct 21, 2023 02:23 PM Reporting Lab: [facility] [place] [facility] [address] [facility] [address] Performing Lab: [facility] [place] [facility] [address] [facility] [address] [facility] [place] [facility] CBC AND DIFF (AUTO) MCHC [MASS/VOLU ME] BY AUTOMATED COUNT 35.0 g/dL 30.8 - 35.1 10/20 Specimen Type: BLOOD No comment entered. Ordering Provider: Pablo STEWART Report Released Date/Time: Oct 21, 2023 02:23 PM Reporting Lab: [facility] [place] [facility] [address] [facility] [address] Performing Lab: [facility] [place] [facility] [address] [facility] [address] [facility] [place] [facility] CBC AND DIFF (AUTO) PLATELETS [#/VOLUME] IN BLOOD BY AUTOMATED COUNT 211 10*3/uL 140 - 360 10/20 Specimen Type: BLOOD No comment entered. Ordering Provider: Pablo STEWART Report Released Date/Time: Oct 21, 2023 02:23 PM Reporting Lab: [facility] [place] [facility] [address] [facility] [address] Performing Lab: [facility] [place] [facility] [address] [facility] [address] [facility] [place] [facility] CBC AND DIFF (AUTO) ERYTHROCYT E DISTRIBUTI ON WIDTH [RATIO] BY AUTOMATED COUNT 12.3 12.0 - 16.0 10/20 Specimen Type: BLOOD No comment entered. Ordering Provider: VANWAGNER,W ILLIAM F Report Released Date/Time: Oct 21, 2023 02:23 PM Reporting Lab: [facility] [place] [facility] [address] [facility] [address] Performing Lab: [facility] [place] [facility] [address] [facility] [address] [facility] CBC AND DIFF (AUTO) MONOCYTES [#/VOLUME] IN BLOOD BY AUTOMATED COUNT 0.38 10*3/uL 0.30 - 1.10 10/20 Specimen Type: BLOOD No comment entered. Ordering Provider: Pablo STEWART Report Released Date/Time: Oct 21, 2023 02:23 PM Reporting Lab: [facility] [place] [facility] [address] [facility] [address] Performing Lab: [facility] [place] [facility] [address] [facility] [address] [facility] CBC AND DIFF (AUTO) MCH [ENTITIC MASS] BY AUTOMATED COUNT 31.3 pg 26.2 - 32.6 10/20 Specimen Type: BLOOD No comment entered. Ordering Provider: Pablo STEWART Report Released Date/Time: Oct 21, 2023 02:23 PM Reporting Lab: [facility] [place] [facility] [address] [facility] [address] Performing Lab: [facility] [place] [facility] [address] [facility] [address] [facility] CBC AND DIFF (AUTO) NEUTROPHIL S/100 LEUKOCYTES IN BLOOD BY AUTOMATED COUNT 72.5 43.7 - 75.8 10/20 Specimen Type: BLOOD No comment entered. Ordering Provider: Pablo STEWART Report Released Date/Time: Oct 21, 2023 02:23 PM Reporting Lab: [facility] [address] [facility] [address] Performing Lab: [facility] [place] [facility] [address] [facility] [address] [facility] CBC AND DIFF (AUTO) LYMPHOCYTE S/100 LEUKOCYTES IN BLOOD BY AUTOMATED COUNT 17.5 14.0 - 42.3 10/20 Specimen Type: BLOOD No comment entered. Ordering Provider: Pablo STEWART Report Released Date/Time: Oct 21, 2023 02:23 PM Reporting Lab: [facility] [place] [facility] [address] [facility] [address] Performing Lab: [facility] [place] [facility] [address] [facility] [address] [facility] CBC AND DIFF (AUTO) MONOCYTES/ 100 LEUKOCYTES IN BLOOD BY AUTOMATED COUNT 6.3 5.1 - 13.7 10/20 Specimen Type: BLOOD No comment entered. Ordering Provider: Pablo STEWART Report Released Date/Time: Oct 21, 2023 02:23 PM Reporting Lab: [facility] [place] [facility] [address] [facility] [address] Performing Lab: [facility] [place] [facility] [address] [facility] [address] [facility] CBC AND DIFF (AUTO) EOSINOPHIL S/100 LEUKOCYTES IN BLOOD BY AUTOMATED COUNT 2.7 0.4 - 6.8 10/20 Specimen Type: BLOOD No comment entered. Ordering Provider: Pablo STEWART Report Released Date/Time: Oct 21, 2023 02:23 PM Reporting Lab: [facility] [place] [facility] [address] [facility] [address] Performing Lab: [facility] [facility] [address] [facility] [address] [facility] CBC AND DIFF (AUTO) BASOPHILS/ 100 LEUKOCYTES IN BLOOD BY AUTOMATED COUNT 0.8 0.1 - 2.0 10/20 Specimen Type: BLOOD No comment entered. Ordering Provider: Pablo STEWART Report Released Date/Time: Oct 21, 2023 02:23 PM Reporting Lab: [facility] [place] [facility] [address] [facility] [address] Performing Lab: [facility] [place] [address] [facility] [address] [facility] [place] [facility] CBC AND DIFF (AUTO) NEUTROPHIL S [#/VOLUME] IN BLOOD BY AUTOMATED COUNT 4.34 10*3/uL 2.20 - 7.60 10/20 Specimen Type: BLOOD No comment entered. Ordering Provider: Pablo STEWART Report Released Date/Time: Oct 21, 2023 02:23 PM Reporting Lab: [facility] [place] [address] [address] Performing Lab: [facility] [place] [address] [address] [facility] [place] [facility] CBC AND DIFF (AUTO) LYMPHOCYTE S [#/VOLUME] IN BLOOD BY AUTOMATED COUNT 1.05 10*3/uL 1.00 - 3.20 10/20 Specimen Type: BLOOD No comment entered. Ordering Provider: Pablo STEWART Report Released Date/Time: Oct 21, 2023 02:23 PM Reporting Lab: [facility] [place] [address] [address] Performing Lab: [facility] [place] [address] [address] [facility] [place] [facility] CBC AND DIFF (AUTO) EOSINOPHIL S [#/VOLUME] IN BLOOD BY AUTOMATED COUNT 0.16 10*3/uL 0.03 - 0.44 10/20 Specimen Type: BLOOD No comment entered. Ordering Provider: Pablo STEWART Report Released Date/Time: Oct 21, 2023 02:23 PM Reporting Lab: [facility] [place] [address] [address] Performing Lab: [facility] [place] [address] [address] [facility] [place] [facility] CBC AND DIFF (AUTO) BASOPHILS [#/VOLUME] IN BLOOD BY AUTOMATED COUNT 0.05 10*3/uL 0.01 - 0.13 10/20 Specimen Type: BLOOD No comment entered. Ordering Provider: Pablo STEWART Report Released Date/Time: Oct 21, 2023 02:23 PM Reporting Lab: [facility] [place] [facility] [address] [facility] [address] Performing Lab: [facility] [place] [facility] [address] [facility] [address] [facility] [place] [facility] CBC AND DIFF (AUTO) IMMATURE GRANULOCYT ES/100 LEUKOCYTES IN BLOOD BY AUTOMATED COUNT 0.2 0.0 - 0.7 10/20 Specimen Type: BLOOD No comment entered. Ordering Provider: Pablo STEWART Report Released Date/Time: Oct 21, 2023 02:23 PM Reporting Lab: [facility] [place] [address] [address] Performing Lab: [facility] [place] [address] [address] [facility] [place] [facility] CBC AND DIFF (AUTO) IMMATURE GRANULOCYT ES [#/VOLUME] IN BLOOD 0.01 10*3/uL 0.00 - 0.06 10/20 Specimen Type: BLOOD No comment entered. Ordering Provider: Pablo STEWART Report Released Date/Time: Oct 21, 2023 02:23 PM Reporting Lab: [facility] [place] [address] [address] Performing Lab: [facility] [place] [address] [address] [facility] [place] [facility] TSH THYROTROPI N [UNITS/VOL UME] IN SERUM OR PLASMA 1.46 u[IU]/mL 0.35 - 5.00 10/20 Specimen Type: SERUM No comment entered. Ordering Provider: Pablo STEWART Report Released Date/Time: Oct 21, 2023 02:15 PM Reporting Lab: [facility] [place] [address] [address] Performing Lab: [facility] [place] [address] [address] [facility] [place] [facility] HIV 1&2 Ag/Ab SCREEN HIV 1+2 AB+HIV1 P24 AG [PRESENCE] IN SERUM OR PLASMA BY IMMUNOASSA Y NON-REAC TIVE 10/20 Specimen Type: SERUM No comment entered. Ordering Provider: Pablo STEWART Report Released Date/Time: Oct 21, 2023 02:15 PM Reporting Lab: [facility] [place] [facility] [address] [facility] [address] Performing Lab: [facility] [place] [facility] [address] [facility] [address] [facility] [place] [facility] HEPATITI S C ANTIBODY (HCV)-AR C HEPATITIS C VIRUS AB [PRESENCE] IN SERUM NON-REAC TIVE 10/20 Specimen Type: SERUM Comment: Hep C Ab: No HCV antibody detected. If recent infection is suspected or other evidence suggests HCV infection, consider HCV nucleic acid testing Ordering Provider: Pablo STEWART Report Released Date/Time: Oct 21, 2023 02:15 PM Reporting Lab: [facility] [place] [facility] [address] [facility] [address] Performing Lab: [facility] [place] [facility] [address] [facility] [address] [facility] [place] [facility] Vital Signs Combined list of [...] Disposition Source [facility] [place] [facility] Outpatient Encounter [id number] 10/11 [facility] En[facility] [id number] 10/11 [facility] [place] [facility] Outpatient Encounter [id number] 10/14 [facility] [place] [facility] [place] [facility] Outpatient Encounter [id number] 10/14 [facility] [place] [facility] [place] [facility] OFFICE O/P NEW MOD 45 MIN [id number] Diagnos is: ICD-10- CM 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, unspeci MARILUZ Grider 10/20 [facility] [place] [facility] [place] [facility] Outpatient Encounter [id number] Diagnos is: ICD-10- CM E66.09 Other obesity due to excess calorie s IAM LUDWIG NA L 11/17 [facility] [place] Outpatient Encounter [id number] 11/25 [facility] Outpatient Encounter [id number] Diagnos is: ICD-10- CM E66.09 Other obesity due to excess calorie s MANDAISHA,DI NA L 12/13 [facility] En[facility] [id number] 01/10 [facility] En[facility] [id number] Diagnos is: ICD-10- CM E66.09 Other obesity due to excess calorie s MANEKAS,DI NA L 01/13 [facility] En[facility] [id number] 02/20 [facility] En[facility] [id number] Diagnos is: ICD-10- CM E66.09 Other obesity due to excess calorie s MANEKAS,DI NA L 02/20 [facility] En[facility] [id number] GARCIA,SARAH ISTOPHER E 02/23 [facility] Outpatient Encounter [id number] Diagnos is: ICD-10- CM E66.09 Other obesity due to excess calorie s MANEKAS,DI NA L 03/13 [facility] En[facility] [id number] 03/27 [facility] Outpatient Encounter [id number] Diagnos is: ICD-10- CM E66.09 Other obesity due to excess calorie s MANEKAS,DI NA L 04/14 [facility] [facility] Outpatient Encounter [id number] 05/02 [facility] Social History Combined list of available smoking, tobacco, and other social 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 Social History Type Response Date Comment Sour e Tobacco smoking status [facility] NEVER USED 10/15/2023 [facility]
--- OUTSIDE RECORDS SUMMARY | 2024-10-27 12:01 | XMS_ITS | Clinical Summary ---
Author Organization [facility] Address [address] [place] [address] Care Team Providers Care Human Resources Talent Manager Name Role Phone Gabby Kelly Primary Care Provider [phone] Allergies No known active allergies Medications amLODIPine [...] Description 08/15/2024 11:00 AM EST Office Visit [facility] [address] [place] [address] Sap Pp Consultant: Vikram Pace MD Chronic cough (Primary Dx) 08/15/2024 10:00 AM EST - 08/15/2024 11:59 PM EST Hospital Encounter [facility] X[facility] [address] [place] [address] Vikram Barbour MD Chronic cough Discharge Disposition: [...] Additional history exists Procedures * Due to [place] [employer] law, this organization might not be sharing negative HIV tests. Procedure Name Priority Date/Time Associated Diagnosis Comments XR CHEST 2 VW Routine 08/15/2024 10:05 AM EST Chronic cough from Last 3 Months Results * Due to [place] [employer] law, this organization might not be sharing [...] obtain the completed interpretation. ? Workstation ID: [id number] Narrative 08/16/2024 9:37 AM EST COMPARISON: ??None FINDINGS AND Resulting Agency Comment [id number] Procedure Note Vikram Fiore MD - 08/16/2024 [...] possible to obtain thecompleted interpretation. Workstation ID: [id number] us Vikram Barbour MD IMG XR PROCEDURES Final Res ult from Last 3 Months Insurance [facility] Care Teams Human Resources Talent Manager Relationship Specialty Start Date End Date Gabby Kelly [address] [place] [address] PCP - General Internal Medicine 08/15/24
[2024-10-27 13:36] LABS: Appearance Urine Clear; Color Urine Yellow; Glucose Urine UA Negative (Negative); Leukocyte Esterase Urine Negative (Negative); Nitrite Urine Negative (Negative); PH 6.5 (5.0-9.0); Specific Gravity - Urine 1.015 (1.005-1.025); Urine Blood Negative (Negative); Urine Ketones Trace mg/dL (Negative); Urine Protein Negative (Neg-Trace)
[2024-10-27 13:44] LABS: Creatinine Urine 181.43 mg/dL; Total Protein Urine Random < 7 mg/dL (<12)
[2024-10-27 13:46] LABS: Anion Gap 14 (12-20); Blood Urea Nitrogen 26 mg/dL (9-16); Carbon Dioxide 29 mmol/L (22-29); Chloride 102 mmol/L (96-108); Estimated Glomerular Filt Rate 44; Glucose Random 131 mg/dL (60-115); Potassium 4.7 mmol/L (3.3-5.1); Sodium 140 mmol/L (135-145)
== END 2024-10-27 10:54 | disposition home or self-care (01) ==
LOC: HO.HMGCLDS 10:53
PROVIDERS: PCP Internal Medicine; Visit Provider Internal Medicine Hypertension Specialist
DX: N18.30 Chronic kidney disease, stage 3 unspecified (principal)
CPT/HCPCS: 36415; 80048; 81003; 82570; 84156

== ENCOUNTER 2024-10-31 11:37 | Outpatient (AMB) | payer OTHER, SELFPAY ==
[2024-10-31 11:47] VITALS: BP 118/62; PULSE 86; O2SAT 96; BMI 42.2
--- NOTE | 2024-10-31 11:47 | HO.NEPHOV ---
Vital Signs 10/31/24 11:47 Height 6 ft Weight 311 lb BMI 42.2 BP 118/62 Blood Pressure Location Rt brachial Position Sitting Pulse 86 Pulse Source Pulse Oximeter Pulse Oximetry (%) 96 Oxygen Delivery Method Room Air Intake Visit Reasons: CKD/ Conf Social Service Coordinator Required: No Accompanied by: Self / Same As Patient Allergies No Known Allergies Allergy (Verified 10/31/24 11:48) Medication List - Last Reconciled 10/31/24 by Abilio Garsai MD allopurinol 300 mg PO DAILY amlodipine 5 mg PO DAILY aripiprazole 5 mg PO DAILY aspirin (Erick Low Dose Aspirin) 81 mg PO DAILY 90 days atorvastatin 20 mg PO DAILY 90 days [bath tub mount As directed] blood sugar diagnostic (GranData Ultra Test strips) Test blood sugar once a day bupropion HCl XL 300 mg PO QAM duloxetine 60 mg PO BEDTIME flash glucose scanning reader ([employer] Sonido 2 [place]) As directed flash glucose sensor (The [employer] Sonido 2 Sensor kit) As directed Lantus Solostar U-100 Insulin (insulin glargine) 90 units (0.9 mL) subcut QPM 90 days NS losartan 100 mg PO DAILY pen needle, diabetic (AboutTime Pen Needle) As directed penicillin V potassium 250 mg PO BID 90 days pioglitazone 15 mg PO DAILY potassium citrate ER 20 mEq (2 x 10 mEq (1,080 mg)) PO BID 90 days Shower Chair Use As directed spironolacton-hydrochlorothiaz 25-25 mg 1 tab PO DAILY tirzepatide (weight loss) 5 mg (0.5 mL) subcut QWEEK 90 days trazodone 100 mg PO BEDTIME walker Use As directed HPI Comments Details: Middle aged man with a history of diabetes mellitus obesity and obstructive sleep apnea with history of nephrolithiasis is here for evaluation of renal function He is being followed by Urology. On salt substitute 07/18/24 Overall doing well ;Still has cough with scanty clear sputum 10/31/24 Still has cough. 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 Diabetes 1.5, managed as type 1 Complex regional pain syndrome of both lower extremities Diabetic peripheral neuropathy Spondylosis of lumbar region without myelopathy or radiculopathy Surgical History S/P placement of nerve stimulator Hx of lithotripsy Hx of colonoscopy (~11/10/16) Family History Other Mental health disorder Social History [facility] Alcohol intake: never Patient Tobacco Use Status: Never used Tobacco e-Cigarette/Vaping Use: Never Used Second Hand Smoke Exposure: No service: No Current occupational status: disabled Cognitive needs: No Hearing needs: No Vision needs: Yes Physical Exam Vital Signs: Last Vital Signs Pulse 86 10/31/24 11:47 BP 118/62 10/31/24 11:47 Pulse Ox 96 10/31/24 11:47 Oxygen Delivery Method Room Air 10/31/24 11:47 BMI result Body Mass Index 42.2 Const General: comfortable; No acute distress Orientation/consciousness: patient oriented x3 Eyes General: appearance normal, both eyes and all related structures Visual Espinoza: normal visual espinoza by confrontation Neck Neck: Yes supple and Yes no JVD Resp Effort & Inspection: normal respiratory effort and respiratory effort not decreased Auscultation: rhonchi Cardio Palpation: no palpable S3 and no palpable S4 Heart sounds: no rubs GI Inspection: Yes normal to inspection Palpation (GI): Soft to palpation Percussion: Yes normal to percussion Auscultation: normal bowel sounds General: Yes no CVA tenderness Back/Spine/Pelvis Back: no CVA tenderness Skin General skin exam: no petechiae and no purpura Neuro General: patient oriented x3 and no focal motor deficits Extrem General: No clubbing and No edema Results Reviewed Nephrology Results: Sodium 140 mmol/L (135-145) 10/27/24 Potassium 4.7 mmol/L (3.3-5.1) 10/27/24 Chloride 102 mmol/L (96-108) 10/27/24 Carbon Dioxide 29 mmol/L (22-29) 10/27/24 BUN 26 mg/dL (9-16) H 10/27/24 Creatinine 1.60 mg/dL (0.5-1.4) H 10/27/24 Calcium 10.0 mg/dL (8.4-10.2) 10/27/24 Urine Protein Negative mg/dL (Neg-Trace) 10/27/24 Urine Creatinine 181.43 mg/dL 10/27/24 Assessment & Plan Assessment & Plan (1) Chronic kidney disease: Code(s): N18.9 - Chronic kidney disease, unspecified Category: Medical Qualifiers: Chronic kidney disease stage: stage 3 (moderate) Chronic kidney disease stage 3 subtype: unspecified whether 3a or 3b Qualified Code(s): N18.30 - Chronic kidney disease, stage 3 unspecified Plan Middle aged man with hypertension CKD and nephrolithiasis. Given the history of nephrolithiasis Hypocitraturia ON potassium citrate and Aldactazide. encouraged him to stay on low-sodium diet He should avoid salt substitute. We will monitor serum potassium closely. CKD 3 in a setting of DM obesity and nephrolithiasis Cr at 1.6 Encouraged him to use CPAP regularly. He continue to avoid nephrotoxic agents including NSAIDs. Blood pressure well controlled. Maintain hemoglobin A1c less than 7%. With weight loss, BP is expected to decrease Encouraged to watch BP at home and call if SBP < 100 or if he is light headed- would gradually taper Amlodipine Coding Level of Care Code Est Pt Level 4 (91279) Diagnoses Stage 3 chronic kidney disease, unspecified whether stage 3a or 3b CKD N18.30 Chronic kidney disease stage: stage 3 (moderate) Chronic kidney disease stage 3 subtype: unspecified whether 3a or 3b
--- OUTSIDE RECORDS SUMMARY | 2024-10-31 13:18 | XMS_ITS | Clinical Summary ---
Author Organization [facility] Address [address] [place] [address] Phone Care Team Providers Care Music Supervisor Name Role Phone Gabby Kelly MD Primary Care Provider [phone] Allergies No known active allergies Medications Multiple Vitamins-Technology Auditor als (MULTIVITAMIN ADULT EXTRA C PO) Take [...] Vaccine (Season Ended) 2025 Insurance Medicaid [facility] Medicaid [facility] Care Teams Music Supervisor Relationship Specialty Start Date End Date Gabby Kelly MD [facility] [address] PCP - General 07/08/20
--- OUTSIDE RECORDS SUMMARY | 2024-10-31 13:18 | XMS_ITS | Clinical Summary ---
Author Organization [facility] Address [address] [place] [address] Care Team Providers Care Aerologist Name Role Phone Gabby Kelly Primary Care Provider [phone] Allergies No known active allergies Medications amLODIPine [...] Description 08/15/2024 11:00 AM EST Office Visit [facility] [address] [place] [address] Waste Water Worker: Vikram Pace MD Chronic cough (Primary Dx) 08/15/2024 10:00 AM EST - 08/15/2024 11:59 PM EST Hospital Encounter [facility] XRay [address] [place] [address] Vikram Barbour MD Chronic cough Discharge Disposition: [...] Additional history exists Procedures * Due to [place] [employer] law, this organization might not be sharing negative HIV tests. Procedure Name Priority Date/Time Associated Diagnosis Comments XR CHEST 2 VW Routine 08/15/2024 10:05 AM EST Chronic cough from Last 3 Months Results * Due to [place] [employer] law, this organization might not be sharing [...] obtain the completed interpretation. ? Workstation ID: [id number] Narrative 08/16/2024 9:37 AM EST COMPARISON: ??None FINDINGS AND Resulting Agency Comment [id number] Procedure Note Vikram Fiore MD - 08/16/2024 [...] possible to obtain thecompleted interpretation. Workstation ID: [id number] us Vikram Barbour MD IMG XR PROCEDURES Final Res ult from Last 3 Months Insurance [facility] Care Teams Aerologist Relationship Specialty Start Date End Date Gabby Kelly [address] [place] [address] PCP - General Internal Medicine 08/15/24
--- OUTSIDE RECORDS SUMMARY | 2024-10-31 13:18 | XMS_ITS | Referral Summary ---
Author Organization [facility] Address [address] [place] [address] Care Team Providers Care Surgical Garment Assembly Supervisor Name Role Phone Gabby Kelly Primary Care Provider [phone] Encounters Date Type Department Care Team Description 08/15/2024 10:00 AM EST - 08/15/2024 11:59 PM EST Hospital Encounter [facility] X[facility] [address] [place] [address] Vikram Barbour MD Chronic cough Discharge Disposition: Home or Self Care () 08/15/2024 11:00 AM EST Office Visit [facility] [address] [place] [address] Director Marketing: Vikram Pace MD Chronic cough (Primary Dx) [...] Not on file Procedures * Due to [place] [employer] law, this organization might not be sharing negative HIV tests. Procedure Name Priority Date/Time Associated Diagnosis Comments XR CHEST 2 VW Routine 08/15/2024 10:05 AM EST Chronic cough from Last 3 Months Results * Due to [place] [employer] law, this organization might not be sharing [...] obtain the completed interpretation. ? Workstation ID: [id number] Narrative 08/16/2024 9:37 AM EST COMPARISON: ??None FINDINGS AND Resulting Agency Comment [id number] Procedure Note Vikram Fiore MD - 08/16/2024 [...] possible to obtain thecompleted interpretation. Workstation ID: [id number] us Vikram Barbour MD IMG XR PROCEDURES Final Res ult from Last [address] [facility] Care Teams Surgical Garment Assembly Supervisor Relationship Specialty Start Date End Date Gabby Kelly [address] [facility] [place] [address] PCP - General Internal Medicine 08/15/24
--- OUTSIDE RECORDS SUMMARY | 2024-10-31 13:18 | XMS_ITS | Continuity of Care Document ---
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 [place] COVID-19 (PFIZER), MRNA, LNP-S, PF, 30 MCG/0.3 ML DOSE 2 2020 208 complet ed HISTORICA L INFORMATI ON - [facility] [place] COVID-19 (PFIZER), MRNA, LNP-S, PF, 30 MCG/0.3 ML DOSE 1 2020 208 complet ed HISTORICA L INFORMATI ON - [facility] Results Combined list of recent chemistry, hematology [...] Oct 21, 2023 02:15 PM Reporting Lab: [address] [address] Performing Lab: [address] [address] [facility] HEPATITI S B SURFACE ANTIBODY (HBsAb)- WH HEPATITIS B VIRUS SURFACE AB [PRESENCE] IN SERUM BY IMMUNOASSA Y Non Reactive 10/20 Specimen Type: SERUM No comment entered. Ordering Provider: Pablo STEWART Report Released Date/Time: Oct 21, 2023 02:15 PM Reporting Lab: [address] [address] Performing Lab: [facility] [place] [facility] [address] [facility] [address] [facility] [place] [facility] LIVER FUNCTION PROTEIN [MASS/VOLU ME] IN SERUM OR PLASMA 6.7 g/dL 6.0 - 8.3 10/20 Specimen Type: SERUM No comment entered. Ordering Provider: Pablo STEWART Report Released Date/Time: Oct 21, 2023 02:15 PM Reporting Lab: [facility] [place] [facility] [address] [facility] [address] Performing Lab: [facility] [place] [facility] [address] [facility] [address] [facility] [place] [facility] LIVER FUNCTION ALBUMIN [MASS/VOLU ME] IN SERUM OR PLASMA 4.1 g/dL 3.5 - 5.0 10/20 Specimen Type: SERUM No comment entered. Ordering Provider: Pablo STEWART Report Released Date/Time: Oct 21, 2023 02:15 PM Reporting Lab: [facility] [place] [facility] [address] [facility] [address] Performing Lab: [facility] [place] [facility] [address] [facility] [address] [facility] [place] [facility] LIVER FUNCTION ALKALINE PHOSPHATAS E [ENZYMATIC ACTIVITY/V OLUME] IN SERUM OR PLASMA 84 U/L 40 - 150 10/20 Specimen Type: SERUM No comment entered. Ordering Provider: Pablo STEWART Report Released Date/Time: Oct 21, 2023 02:15 PM Reporting Lab: [facility] [place] [facility] [address] [facility] [address] Performing Lab: [facility] [place] [facility] [address] [facility] [address] [facility] [place] [facility] LIVER FUNCTION ASPARTATE AMINOTRANS FERASE [ENZYMATIC ACTIVITY/V OLUME] IN SERUM OR PLASMA 19 U/L 5 - 34 10/20 Specimen Type: SERUM No comment entered. Ordering Provider: VANWAGNER,W ILLIAM F Report Released Date/Time: Oct 21, 2023 02:15 PM Reporting Lab: [facility] [place] [facility] [address] [facility] [address] Performing Lab: [facility] [place] [facility] [address] [facility] [address] [facility] [place] [facility] LIVER FUNCTION ALANINE AMINOTRANS FERASE [ENZYMATIC ACTIVITY/V OLUME] IN SERUM OR PLASMA 28 U/L 10/20 Specimen Type: SERUM No comment entered. Ordering Provider: Pablo STEWART Report Released Date/Time: Oct 21, 2023 02:15 PM Reporting Lab: [facility] [place] [facility] [address] [facility] [address] Performing Lab: [facility] [place] [facility] [address] [facility] [address] [facility] [place] [facility] LIVER FUNCTION BILIRUBIN. TOTAL [MASS/VOLU ME] IN SERUM OR PLASMA 0.6 mg/dL 0.2 - 1.2 10/20 Specimen Type: SERUM No comment entered. Ordering Provider: Pablo STEWART Report Released Date/Time: Oct 21, 2023 02:15 PM Reporting Lab: [facility] [place] [facility] [address] [facility] [address] Performing Lab: [facility] [place] [facility] [address] [facility] [address] [facility] [place] [facility] LIPID PANEL FASTING CHOLESTERO L [MASS/VOLU ME] IN SERUM OR PLASMA 84 mg/dL 10/20 Specimen Type: SERUM No comment entered. Ordering Provider: Pablo STEWART Report Released Date/Time: Oct 21, 2023 02:15 PM Reporting Lab: [facility] [place] [facility] [address] [facility] [address] Performing Lab: [facility] [place] [facility] [address] [facility] [address] [facility] [place] [facility] LIPID PANEL FASTING TRIGLYCERI DE [MASS/VOLU ME] IN SERUM OR PLASMA 87 mg/dL 0 - 150 10/20 Specimen Type: SERUM No comment entered. Ordering Provider: Pablo STEWART Report Released Date/Time: Oct 21, 2023 02:15 PM Reporting Lab: [facility] [place] [facility] [address] [facility] [address] Performing Lab: [facility] [place] [facility] [address] [facility] [address] [facility] [place] [facility] LIPID PANEL FASTING CHOLESTERO L IN LDL [MASS/VOLU ME] IN SERUM OR PLASMA BY CALCULATIO N 30 mg/dL 0 - 129 10/20 Specimen Type: SERUM No comment entered. Ordering Provider: Pablo STEWART Report Released Date/Time: Oct 21, 2023 02:15 PM Reporting Lab: [facility] [place] [facility] [address] [facility] [address] Performing Lab: [facility] [place] [facility] [address] [facility] [address] [facility] [place] [facility] LIPID PANEL FASTING CHOLESTERO L.TOTAL/CH OLESTEROL IN HDL [MASS RATIO] IN SERUM OR PLASMA 2.3 10/20 Specimen Type: SERUM No comment entered. Ordering Provider: Pablo STEWART Report Released Date/Time: Oct 21, 2023 02:15 PM Reporting Lab: [facility] [place] [address] [address] Performing Lab[facility] [place] [facility] [address] [facility] [address] [facility] [place] [facility] LIPID PANEL FASTING CHOLESTERO L IN HDL [MASS/VOLU ME] IN SERUM OR PLASMA 37 mg/dL 40 - 60 10/20 L Specimen Type: SERUM No comment entered. Ordering Provider: Pablo STEWART Report Released Date/Time: Oct 21, 2023 02:15 PM Reporting Lab: [facility] [place] [facility] [address] [facility] [address] Performing Lab: [facility] [place] [facility] [address] [facility] [address] [facility] [place] [facility] HEMOGLOB IN A1C PANEL HEMOGLOBIN A1C/HEMOGL OBIN.TOTAL [...] Oct 21, 2023 02:15 PM Reporting Lab: [facility] [place] [address] Performing Lab: [facility] [place] [address] [address] [facility]RDECAT[facility] [place] [facility] URINALYS IS COLOR OF URINE Yellow 10/20 Specimen Type: URINE Comment: If Glucose = >500 and Ketones are positive, please alert the Physician. Ordering Provider: Pablo STEWART Report Released Date/Time: Oct 21, 2023 02:15 PM Reporting Lab: [facility] [place] [address] [address] Performing Lab: [facility] [place] [address] [address] [facility]ITALTRN [place] [facility] URINALYS IS APPEARANCE OF URINE Clear 10/20 Specimen Type: URINE Comment: If Glucose = >500 and Ketones are positive, please alert the Physician. Ordering Provider: Pablo STEWART Report Released Date/Time: Oct 21, 2023 02:15 PM Reporting Lab: [facility] [place] [address] [address] Performing Lab: [facility] [place] [address] [address] [facility]ITALTRN [place] [facility] URINALYS IS GLUCOSE [MASS/VOLU ME] IN URINE NEGATIVE mg/dL 10/20 Specimen Type: URINE Comment: If Glucose = >500 and Ketones are positive, please alert the Physician. Ordering Provider: Pablo STEWART Report Released Date/Time: Oct 21, 2023 02:15 PM Reporting Lab: [facility]TR[facility] [place] [address] [address] Performing Lab: [facility] [place] [address] [address] [facility] [place] [facility] URINALYS IS KETONES [MASS/VOLU ME] IN URINE BY TEST STRIP NEGATIVE mg/dL 10/20 Specimen Type: URINE Comment: If Glucose = >500 and Ketones are positive, please alert the Physician. Ordering Provider: Pablo STEWART Report Released Date/Time: Oct 21, 2023 02:15 PM Reporting Lab: [facility]TR[facility] [place] [address] [address] Performing Lab: [facility] [place] [address] [address] [facility]RJ[facility]ITALTRN [place] [facility] URINALYS IS ERYTHROCYT ES [PRESENCE] IN URINE SEDIMENT BY LIGHT MICROSCOPY NEGATIVE mg/dL 10/20 Specimen Type: URINE Comment: If Glucose = >500 and Ketones are positive, please alert the Physician. Ordering Provider: Pablo STEWART Report Released Date/Time: Oct 21, 2023 02:15 PM Reporting Lab: [facility] [place] [address] [address] Performing Lab: [facility] [place] [address] [address] [facility] [place] [facility] URINALYS IS PROTEIN [MASS/VOLU ME] IN URINE BY TEST STRIP 20 mg/dL 10/20 Specimen Type: URINE Comment: If Glucose = >500 and Ketones are positive, please alert the Physician. Ordering Provider: Pablo STEWART Report Released Date/Time: Oct 21, 2023 02:15 PM Reporting Lab: [facility] [place] [facility] [address] [facility] [address] Performing Lab: [facility] [place] [facility] [address] [facility] [address] [facility] [place] [facility] URINALYS IS NITRITE [PRESENCE] IN URINE NEGATIVE mg/dL 10/20 Specimen Type: URINE Comment: If Glucose = >500 and Ketones are positive, please alert the Physician. Ordering Provider: Pablo STEWART Report Released Date/Time: Oct 21, 2023 02:15 PM Reporting Lab: [facility] [place] [facility] [address] [facility] [address] Performing Lab: [facility] [facility] [address] [facility] [address] [facility] [place] [facility] URINALYS IS BILIRUBIN. TOTAL [PRESENCE] IN URINE NEGATIVE mg/dL 10/20 Specimen Type: URINE Comment: If Glucose = >500 and Ketones are positive, please alert the Physician. Ordering Provider: Pablo STEWART Report Released Date/Time: Oct 21, 2023 02:15 PM Reporting Lab: [facility] [place] [facility] [address] [facility] [address] Performing Lab: [facility] [facility] [address] [facility] [address] [facility] [place] [facility] URINALYS IS SPECIFIC GRAVITY OF URINE BY REFRACTOME TRY 1.024 1.016 - 1.022 10/20 H Specimen Type: URINE Comment: If Glucose = >500 and Ketones are positive, please alert the Physician. Ordering Provider: Pablo STEWART Report Released Date/Time: Oct 21, 2023 02:15 PM Reporting Lab: [facility] [facility] [address] [facility] [address] Performing Lab: [facility] [facility] [address] [facility] [address] [facility] [place] [facility] URINALYS IS PH OF URINE BY TEST STRIP 6.0 5.0 - 9.0 10/20 Specimen Type: URINE Comment: If Glucose = >500 and Ketones are positive, please alert the Physician. Ordering Provider: Pablo STEWART Report Released Date/Time: Oct 21, 2023 02:15 PM Reporting Lab: [facility] [place] [facility] [address] [facility] [address] Performing Lab: [facility]RJ[facility]PITALTRN [place] [address] [address] [facility]RJ[facility]ITALTRN [place] [facility] URINALYS IS UROBILINOG EN [MASS/VOLU ME] IN URINE BY TEST STRIP <2.0mg/d L <2.0 - 2.0 10/20 Specimen Type: URINE Comment: If Glucose = >500 and Ketones are positive, please alert the Physician. Ordering Provider: Pablo STEWART Report Released Date/Time: Oct 21, 2023 02:15 PM Reporting Lab: [facility]ITALTR[facility] [place] [address] [address] Performing Lab: [facility] [place] [address] [address] [facility]ITALRDECATUR [facility]USN [place] [facility] URINALYS IS LEUKOCYTE ESTERASE [PRESENCE] IN URINE BY TEST STRIP NEGATIVE 10/20 Specimen Type: URINE Comment: If Glucose = >500 and Ketones are positive, please alert the Physician. Ordering Provider: Pablo STEWART Report Released Date/Time: Oct 21, 2023 02:15 PM Reporting Lab: [facility]ITALTR[facility] [place] [address] [address] Performing Lab: [facility] TRN [place] [address] [address] [facility]RJ[facility]ITALTRN [place] [facility] MICROALB UMIN CREATINI NE RATIO PANEL MICROALBUM IN/CREATIN INE [MASS RATIO] IN URINE 6.2 mg/g 0 - 29.9 10/20 Specimen Type: URINE No comment entered. Ordering Provider: Pablo STEWART Report Released Date/Time: Oct 21, 2023 02:15 PM Reporting Lab: [facility] [place] [facility] [address] [facility] [address] Performing Lab: [facility] [place] [facility] [address] [facility] [address] [facility] [place] [facility] MICROALB UMIN CREATINI NE RATIO PANEL MICROALBUM IN [MASS/VOLU ME] IN URINE 1.5 mg/dL 10/20 Specimen Type: URINE No comment entered. Ordering Provider: Pablo STEWART Report Released Date/Time: Oct 21, 2023 02:15 PM Reporting Lab: [facility] [place] [facility] [address] [facility] [address] Performing Lab: [facility] [place] [facility] [address] [facility] [address] [facility] [place] [facility] MICROALB UMIN CREATINI NE RATIO PANEL CREATININE [MASS/VOLU ME] IN URINE 240.98 mg/dL 10/20 Specimen Type: URINE No comment entered. Ordering Provider: Pablo STEWART Report Released Date/Time: Oct 21, 2023 02:15 PM Reporting Lab: [facility] [place] [facility] [address] [facility] [address] Performing Lab: [facility] [place] [facility] [address] [facility] [address] [facility] [place] [facility] URIC ACID URATE [MASS/VOLU ME] IN SERUM OR PLASMA 5.4 mg/dL 3.5 - 7.2 10/20 Specimen Type: SERUM No comment entered. Ordering Provider: Pablo STEWART Report Released Date/Time: Oct 21, 2023 02:15 PM Reporting Lab: [facility] [place] [facility] [address] [facility] [address] Performing Lab: [facility] [place] [facility] [address] [facility] [address] [facility] [place] [facility] CBC AND DIFF (AUTO) LEUKOCYTES [#/VOLUME] IN BLOOD BY AUTOMATED COUNT 5.99 10*3/uL 4.50 - 11.00 10/20 Specimen Type: BLOOD No comment entered. Ordering Provider: Pablo STEWART Report Released Date/Time: Oct 21, 2023 02:23 PM Reporting Lab: [facility] [place] [facility] [address] [facility] [address] Performing Lab: [facility] [place] [facility] [address] [facility] [address] [facility] [place] [facility] CBC AND DIFF (AUTO) ERYTHROCYT ES [#/VOLUME] IN BLOOD BY AUTOMATED COUNT 4.47 10*6/uL 4.23 - 5.66 10/20 Specimen Type: BLOOD No comment entered. Ordering Provider: Pablo STEWART Report Released Date/Time: Oct 21, 2023 02:23 PM Reporting Lab: [facility] [place] [facility] [address] [facility] [address] Performing Lab: [facility] [facility] [address] [facility] [address] [facility] [place] [facility] CBC AND DIFF (AUTO) HEMOGLOBIN [MASS/VOLU ME] IN BLOOD 14.0 g/dL 12.8 - 17 10/20 Specimen Type: BLOOD No comment entered. Ordering Provider: Pablo STEWART Report Released Date/Time: Oct 21, 2023 02:23 PM Reporting Lab: [facility] [place] [facility] [address] [facility] [address] Performing Lab: [facility] [place] [facility] [address] [facility] [address] [facility] [place] [facility] CBC AND DIFF (AUTO) HEMATOCRIT [VOLUME FRACTION] OF BLOOD BY AUTOMATED COUNT 40.0 39.2 - 50.4 10/20 Specimen Type: BLOOD No comment entered. Ordering Provider: Pablo STEWART Report Released Date/Time: Oct 21, 2023 02:23 PM Reporting Lab: [facility] [place] [facility] [address] [facility] [address] Performing Lab: [facility] [place] [address] [address] [facility] [place] [facility] CBC AND DIFF (AUTO) MCV [ENTITIC VOLUME] BY AUTOMATED COUNT 89.5 fL 82 - 99 10/20 Specimen Type: BLOOD No comment entered. Ordering Provider: Pablo STEWART Report Released Date/Time: Oct 21, 2023 02:23 PM Reporting Lab: [facility] [facility] [address] [facility] [address] Performing Lab: [facility] [place] [facility] [address] [facility] [address] [facility] [place] [facility] CBC AND DIFF (AUTO) MCHC [MASS/VOLU ME] BY AUTOMATED COUNT 35.0 g/dL 30.8 - 35.1 10/20 Specimen Type: BLOOD No comment entered. Ordering Provider: Pablo STEWART Report Released Date/Time: Oct 21, 2023 02:23 PM Reporting Lab: [facility] [facility] [address] [facility] [address] Performing Lab: [facility] [facility] [address] [facility] [address] [facility] [place] [facility] CBC AND DIFF (AUTO) PLATELETS [#/VOLUME] IN BLOOD BY AUTOMATED COUNT 211 10*3/uL 140 - 360 10/20 Specimen Type: BLOOD No comment entered. Ordering Provider: Pablo STEWART Report Released Date/Time: Oct 21, 2023 02:23 PM Reporting Lab: [facility] [place] [facility] [address] [facility] [address] Performing Lab: [facility] [place] [facility] [address] [facility] [address] [facility] [place] [facility] CBC AND DIFF (AUTO) ERYTHROCYT E DISTRIBUTI ON WIDTH [RATIO] BY AUTOMATED COUNT 12.3 12.0 - 16.0 10/20 Specimen Type: BLOOD No comment entered. Ordering Provider: Pablo STEWART Report Released Date/Time: Oct 21, 2023 02:23 PM Reporting Lab: [facility] [place] [facility] [address] [facility] [address] Performing Lab: [facility] [place] [facility] [address] [facility] [address] [facility] [place] [facility] CBC AND DIFF (AUTO) MONOCYTES [#/VOLUME] IN BLOOD BY AUTOMATED COUNT 0.38 10*3/uL 0.30 - 1.10 10/20 Specimen Type: BLOOD No comment entered. Ordering Provider: Pablo STEWART Report Released Date/Time: Oct 21, 2023 02:23 PM Reporting Lab: [facility] [place] [facility] [address] [facility] [address] Performing Lab: [facility] [facility] [address] [facility] [address] [facility] [place] [facility] CBC AND DIFF (AUTO) MCH [ENTITIC MASS] BY AUTOMATED COUNT 31.3 pg 26.2 - 32.6 10/20 Specimen Type: BLOOD No comment entered. Ordering Provider: Pablo STEWART Report Released Date/Time: Oct 21, 2023 02:23 PM Reporting Lab: [facility] [place] [address] [address] Performing Lab: [facility] [place] [facility] [address] [facility] [address] [facility] [place] [facility] CBC AND DIFF (AUTO) NEUTROPHIL S/100 LEUKOCYTES IN BLOOD BY AUTOMATED COUNT 72.5 43.7 - 75.8 10/20 Specimen Type: BLOOD No comment entered. Ordering Provider: Pablo STEWART Report Released Date/Time: Oct 21, 2023 02:23 PM Reporting Lab: [facility] [place] [facility] [address] [facility] [address] Performing Lab: [facility] [place] [facility] [address] [facility] [address] [facility] [place] [facility] CBC AND DIFF (AUTO) LYMPHOCYTE S/100 LEUKOCYTES IN BLOOD BY AUTOMATED COUNT 17.5 14.0 - 42.3 04/25 /2024 Specimen Type: BLOOD No comment entered. Ordering Provider: Pablo STEWART Report Released Date/Time: Oct 21, 2023 02:23 PM Reporting Lab: [facility] [place] [facility] [address] [address] Performing Lab: [facility] [place] [facility] [address] [facility] [address] [facility] CBC AND DIFF (AUTO) MONOCYTES/ 100 LEUKOCYTES IN BLOOD BY AUTOMATED COUNT 6.3 5.1 - 13.7 10/20 Specimen Type: BLOOD No comment entered. Ordering Provider: Pablo STEWART Report Released Date/Time: Oct 21, 2023 02:23 PM Reporting Lab: [facility] [place] [facility] [address] [facility] [address] Performing Lab: [facility] [place] [facility] [address] [facility] [address] [facility] CBC AND DIFF (AUTO) EOSINOPHIL S/100 LEUKOCYTES IN BLOOD BY AUTOMATED COUNT 2.7 0.4 - 6.8 10/20 Specimen Type: BLOOD No comment entered. Ordering Provider: Pablo STEWART Report Released Date/Time: Oct 21, 2023 02:23 PM Reporting Lab: [facility] [place] [address] [facility] [address] Performing Lab: [facility] [place] [facility] [address] [facility] [address] [facility] CBC AND DIFF (AUTO) BASOPHILS/ 100 LEUKOCYTES IN BLOOD BY AUTOMATED COUNT 0.8 0.1 - 2.0 10/20 Specimen Type: BLOOD No comment entered. Ordering Provider: Pablo STEWART Report Released Date/Time: Oct 21, 2023 02:23 PM Reporting Lab: [facility] [address] [facility] [address] Performing Lab: [facility] [address] [facility] [address] [facility] CBC AND DIFF (AUTO) NEUTROPHIL S [#/VOLUME] IN BLOOD BY AUTOMATED COUNT 4.34 10*3/uL 2.20 - 7.60 10/20 Specimen Type: BLOOD No comment entered. Ordering Provider: Pablo STEWART Report Released Date/Time: Oct 21, 2023 02:23 PM Reporting Lab: [facility] [address] [facility] [address] Performing Lab: [facility] [address] [facility] [address] [facility] CBC AND DIFF (AUTO) LYMPHOCYTE S [#/VOLUME] IN BLOOD BY AUTOMATED COUNT 1.05 10*3/uL 1.00 - 3.20 10/20 Specimen Type: BLOOD No comment entered. Ordering Provider: Pablo STEWART Report Released Date/Time: Oct 21, 2023 02:23 PM Reporting Lab: [facility] [address] [address] Performing Lab: [facility] [address] [address] [facility] CBC AND DIFF (AUTO) EOSINOPHIL S [#/VOLUME] IN BLOOD BY AUTOMATED COUNT 0.16 10*3/uL 0.03 - 0.44 10/20 Specimen Type: BLOOD No comment entered. Ordering Provider: Pablo STEWART Report Released Date/Time: Oct 21, 2023 02:23 PM Reporting Lab: [facility] [address] [facility] [address] Performing Lab: [facility] [address] [address] [facility] CBC AND DIFF (AUTO) BASOPHILS [#/VOLUME] IN BLOOD BY AUTOMATED COUNT 0.05 10*3/uL 0.01 - 0.13 10/20 Specimen Type: BLOOD No comment entered. Ordering Provider: Pablo STEWART Report Released Date/Time: Oct 21, 2023 02:23 PM Reporting Lab: [facility] [address] [facility] [address] Performing Lab: [facility] [address] [facility] [address] [facility] CBC AND DIFF (AUTO) IMMATURE GRANULOCYT ES/100 LEUKOCYTES IN BLOOD BY AUTOMATED COUNT 0.2 0.0 - 0.7 10/20 Specimen Type: BLOOD No comment entered. Ordering Provider: Pablo STEWART Report Released Date/Time: Oct 21, 2023 02:23 PM Reporting Lab: [facility] [address] [facility] [address] Performing Lab: [facility] [address] [facility] [address] [facility] CBC AND DIFF (AUTO) IMMATURE GRANULOCYT ES [#/VOLUME] IN BLOOD 0.01 10*3/uL 0.00 - 0.06 10/20 Specimen Type: BLOOD No comment entered. Ordering Provider: Pablo STEWART Report Released Date/Time: Oct 21, 2023 02:23 PM Reporting Lab: [facility] [address] [facility] [address] Performing Lab: [facility] [address] [facility] [address] [facility] TSH THYROTROPI N [UNITS/VOL UME] IN SERUM OR PLASMA 1.46 u[IU]/mL 0.35 - 5.00 10/20 Specimen Type: SERUM No comment entered. Ordering Provider: Pablo STEWART Report Released Date/Time: Oct 21, 2023 02:15 PM Reporting Lab: [facility] [address] [facility] [address] Performing Lab: [facility] [address] [address] [facility] Vital Signs Combined list of inpatient [...] included; 2) Encounters from the Department of [place] facilities going backup to 280 months. Location Location Details Encounter Type Encounter Number Reason For Visit Attending Provider ADM Date DC Date Status Disposition Source [facility] Outpatient Encounter [id number] 10/11 [facility] Encounter [id number] 10/11 [facility] Out[facility]counter [id number] 10/14 [facility] Out[facility] Encounter [id number] 10/14 [facility] OFFICE O/P NEW MOD 45 MIN [id number] Diagnos is: ICD-10- CM 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, unspeci MARILUZ Grider 10/20 [facility] Out[facility] Encounter [id number] Diagnos is: ICD-10- CM E66.09 Other obesity due to excess calorie s MANEKAS,DI NA L 11/17 [facility] Out[facility] Encounter [id number] 11/25 [facility] Encounter [id number] Diagnos is: ICD-10- CM E66.09 Other obesity due to excess calorie s MANEKAS,DI NA L 12/13 [facility] Out[facility] Encounter [id number] 01/10 [facility] Out[facility] Encounter [id number] Diagnos is: ICD-10- CM E66.09 Other obesity due to excess calorie s MANEKAS,DI NA L 01/13 [facility] Out[facility] Encounter [id number] 02/20 [facility] Out[facility] Encounter [id number] Diagnos is: ICD-10- CM E66.09 Other obesity due to excess calorie s MANEKAS,DI NA L 02/20 [facility] Out[facility] Encounter [id number] SARAH GARCIA ISTOPHER E 02/23 [facility] Out[facility] Encounter [id number] Diagnos is: ICD-10- CM E66.09 Other obesity due to excess calorie s MANDARINELAS,DI NA L 03/13 [facility] Outpatient Encounter [id number] 03/27 [facility] Outpatient Encounter [id number] Diagnos is: ICD-10- CM E66.09 Other obesity due to excess calorie s MANDARINELAS,DI NA L 04/14 [facility] Outpatient Encounter [id number] 05/02 [facility] Social History Combined list of available smoking, tobacco, and other social 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 Social History Type Response Date Comment Sourc e Tobacco smoking status [facility] NEVER USED 10/15/2023 [facility]
== END 2024-10-31 12:07 | disposition home or self-care (01) ==
LOC: HO.HKA 11:38
PROVIDERS: PCP Internal Medicine; Visit Provider Internal Medicine Hypertension Specialist
DX: N18.30 Chronic kidney disease, stage 3 unspecified (principal)
CPT/HCPCS: 99214

== ENCOUNTER → 2024-10-31 11:37 | Outpatient (BNVA) | payer OTHER, SELFPAY | PROVIDERS: PCP Internal Medicine; Visit Provider Internal Medicine Hypertension Specialist ==

== ENCOUNTER 2024-11-02 13:58 | Outpatient (AMB) | payer OTHER, SELFPAY ==
--- NOTE | 2024-11-02 14:01 | MHC.OFFVIS ---
Vital Signs 11/02/24 14:02 Height 6 ft Weight 305 lb BMI 41.4 BP 111/71 Blood Pressure Location Lt brachial Position Sitting Respiration 16 Pulse 110 H Pulse Source Pulse Oximeter Pulse Oximetry (%) 97 Oxygen Delivery Method Room Air Intake Visit Reasons: FOLLOW UP FOR BACK PAIN Equalizing Saw Operator Required: No Allergies No Known Allergies Allergy (Verified 11/02/24 14:03) Medication List - Last Reconciled 11/02/24 by Marcia Greenberg LPN allopurinol 300 mg PO DAILY amlodipine 5 mg PO DAILY aripiprazole 5 mg PO DAILY aspirin (Erick Low Dose Aspirin) 81 mg PO DAILY 90 days atorvastatin 20 mg PO DAILY 90 days [bath tub mount As directed] blood sugar diagnostic (FestEvo Ultra Test strips) Test blood sugar once a day bupropion HCl XL 300 mg PO QAM duloxetine 60 mg PO BEDTIME flash glucose scanning reader (Intercomyle Sonido 2 [place]) As directed flash glucose sensor (C[employer] Meets BagelStyle Sonido 2 Sensor kit) As directed Lantus Solostar U-100 Insulin (insulin glargine) 90 units (0.9 mL) subcut QPM 90 days NS losartan 100 mg PO DAILY pen needle, diabetic (AboutTime Pen Needle) As directed penicillin V potassium 250 mg PO BID 90 days pioglitazone 15 mg PO DAILY potassium citrate ER 20 mEq (2 x 10 mEq (1,080 mg)) PO BID 90 days Shower Chair Use As directed spironolacton-hydrochlorothiaz 25-25 mg 1 tab PO DAILY tirzepatide (weight loss) 5 mg (0.5 mL) subcut QWEEK 90 days trazodone 100 mg PO BEDTIME walker Use As directed HPI Comments Details: Adama is back in my office with complains on pain being unbearable in his lower back. He reports shooting pain with attempt to flex forward and he reports pain aggravation with flexing backwards. he reports most aggravating pain with standing but not with walking. He went for MRI and results of the MRI dictated as below. I would like to perform bilateral medial branch block on this patient. If this injection will not result in good pain relief I will consider repeating diagnostic bilateral sacroiliac joint injection which in the past gave patient 3 weeks of pain relief. Only after those injections will be failing the relief of the pain of the patient is I will consider transforaminal epidural steroid injection for this patient. Prior: Results of the trial of SCS [facility]: He reports excellent pain relief specially in bilateral lower extremities. He reports that he is able to sleep very well with device on he reports minor pain in the feet but it does not prevent him to take good sleep. He also reports the device helps for the lower back pain improved his mobility activities of daily living and improve his social interactions. He is very much interested in implantation of the device on permanent basis. He is suffering from spondylosis of the lumbar spine disc degeneration lumbar spine but his main problem is diabetic polyneuropathy of bilateral lower extremities. SI joint injection results 3 weeks of pain relieve on diagnostic injection 100%.? The pain under right scapula is another problem for this patient.? I told him that this pain can be treated potentially as a myofascial pain syndrome and I can perform once he is here in my office a trigger point injection into this area hopefully it will give him good pain relief.? ?He is under care of urologist and urologist thinks that this pain might be related to his kidney stones.? However the larger stone he has? is on the left side and that he experiences pain only on the right.? He is going for shockwave lithotripsy with this urologist in the future to destroyed the stones.? As of his polyneuropathy it stems out from diabetes.? His hemoglobin A1c is equal to 8. it is certain improvement from number in around 10. however unfortunately it is not good enough to reduce polyneuropathy.? He reports significant bilateral pain as burning sensations pins and needles in bilateral feet in the is distribution of the low socks.? We discussed the situation with peripheral neuropathy.? Explained to him that unless he would decrease his hemoglobin A1c below 6 I would not expect his pain getting better. ?He is suffering from axial lower back pain and peripheral diabetic polyneuropathy.? ? He was complaining on the pain in the lateral hip area, he was sent for hip x-ray which demonstrated almost no pathology normal alignment no cartilage loss. He went for consult with Dr. Rodrigez a neurosurgeon.? There were no indications to do any surgical interventions by Dr. Rodrigez. [facility] Medical History (Updated 10/13/24 @ 13:01 by Gabby Kelly MD) Peripheral neuropathy Obstructive sleep apnea Restless legs syndrome (RLS) Obstructive sleep apnea Chronic pain syndrome Ureteral calculus Fatty liver Gout Kidney stones Depression, major, recurrent Lipid disorder 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, essential long term (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 Diabetes 1.5, managed as type 1 Complex regional pain syndrome of both lower extremities Diabetic peripheral neuropathy Spondylosis of lumbar region without myelopathy or radiculopathy Surgical History S/P placement of nerve stimulator Hx of lithotripsy Hx of colonoscopy (~11/10/16) Family History Other Mental health disorder Social History Housing: Condominium Alcohol intake: never Patient Tobacco Use Status: Never used Tobacco e-Cigarette/Vaping Use: Never Used Second Hand Smoke Exposure: No service: No Current occupational status: disabled Cognitive needs: No Hearing needs: No Vision needs: Yes Review of Systems Const All systems reviewed & are unremarkable except as noted in HPI and below Physical Exam Vital Signs: Last Vital Signs Pulse 110 H 11/02/24 14:02 Resp 16 11/02/24 14:02 BP 111/71 11/02/24 14:02 Pulse Ox 97 11/02/24 14:02 Oxygen Delivery Method Room Air 11/02/24 14:02 BMI result Body Mass Index 41.4 Const General: cooperative and no acute distress Nutritional Appearance: obese Limitations: no limitations HEENT Head: Yes normocephalic Ears: hearing grossly normal bilaterally Neck Neck: Yes full ROM and Yes supple Resp Effort & Inspection: normal respiratory effort and able to speak in complete sentences Psych Appearance: grossly normal Mental Status: mental status grossly normal Speech and movement: Normal speech and movement present Affect: normal affect Attitude: cooperative Thought process: Normal thought process present Thought content: Normal thought content present Insight: Good insight present (Psych) Judgement: Good judgement present (Psych) Results Reviewed Results Reviewed: EXAMINATION: MR LUMBAR SPINE WITHOUT CONTRAST CLINICAL INFORMATION: Spondylosis without adenopathy or radiculopathy. COMPARISON: April 04, 2020. TECHNIQUE: MRI of the lumbar spine was obtained using routine sequences without contrast. FINDINGS: Last rib-bearing vertebra labeled T12. Paramagnetic field distortion secondary to metallic neurostimulator device in the deep fat planes of the soft tissues posterior lumbar region from L2 to L3 with electrodes entering at T12-L1 towards the thoracic spine. Mild subtle bone marrow STIR signal in the endplates of L5-S1. And the posterior elements/posterior spinous processes of L1. Multilevel marginal osteophyte formation and disc desiccation throughout the lower thoracic spine and the lumbar spine. There is a grade 1 retrolisthesis L5-S1. Focal hyperintense T2 signal in the posterior intervertebral disc of L4 and L5 likely related to annular fissure. Conus medullaris ends at inferior endplate of L1 with normal signal. T12-L1: Paramagnetic field distortion. No gross disc herniation or neuroforamina stenosis. L1-2: No disc herniation. No neuroforamina stenosis. L2-3: Broad-based disc bulging. Facet joint hypertrophy. No compression upon neural elements. L3-4: Broad-based disc bulging. Facet joint hypertrophy. No compression upon neural elements. L4-5: Central broad-based disc herniation resulting in ventral indentation to the thecal sac and abutting the L5 nerve roots on the lateral recesses. Bilateral facet joint hypertrophy. Bilateral neuroforamina narrowing without compressing the exiting nerve root. L5-S1: Central/right subarticular and foraminal broad-based disc herniation abutting the right S1 nerve root and the right L5 nerve root. Right neuroforamina stenosis. Left neuroforamina narrowing on a degenerative basis. No prevertebral compartment hematoma, mass or fluid collection. IMPRESSION: Multilevel thoracolumbar spondylosis involving mostly the L4-5 and the L5-S1 levels. . Central/right subarticular and foraminal broad-based disc herniation L5-S1 abutting the right S1 likely compressing the right L5 nerve roots. Assessment & Plan Assessment & Plan (1) Spinal cord stimulator status: Code(s): Z96.89 - Presence of other specified functional implants Category: Medical (2) Hip osteoarthritis: Code(s): M16.9 - Osteoarthritis of hip, unspecified (3) Spondylosis of lumbar region without myelopathy or radiculopathy: Code(s): M47.816 - Spondylosis without myelopathy or radiculopathy, lumbar region Category: Medical (4) Diabetic peripheral neuropathy: Code(s): E11.42 - Type 2 diabetes mellitus with diabetic polyneuropathy Category: Medical (5) Complex regional pain syndrome of both lower extremities: Code(s): G90.523 - Complex regional pain syndrome I of lower limb, bilateral Category: Medical Qualifiers: Complex regional pain syndrome type: type I Qualified Code(s): G90.523 - Complex regional pain syndrome I of lower limb, bilateral (6) Sacroiliac joint pain: Code(s): M53.3 - Sacrococcygeal disorders, not elsewhere classified Category: Medical (7) Sacroiliitis: Code(s): M46.1 - Sacroiliitis, not elsewhere classified Category: Medical (8) 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 The patient in the past also had diagnostic sacroiliac joint injection which resulted in 3 weeks of pain relief. I would like to try 1st medial branch blocks L3, L4, dorsal ramus L5 diagnostic. If this will not help the patient's pain I will try bilateral diagnostic sacroiliac joint injection. Only if those 2 injections will result in no pain improvement I will try transforaminal epidural steroid injection for this patient possibly L4-5 L5-S1 on the right side. Coding Level of Care Code Est Pt Level 3 (15234) Diagnoses Spinal cord stimulator status Z96.89 Hip osteoarthritis M16.9 Spondylosis of lumbar region without myelopathy or radiculopathy M47.816 Diabetic peripheral neuropathy E11.42 Complex regional pain syndrome type 1 of both lower extremities G90.523 Complex regional pain syndrome type: type I Sacroiliac joint pain M53.3 Sacroiliitis M46.1 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
[2024-11-02 14:02] VITALS: BP 111/71; PULSE 110; RESP 16; O2SAT 97; BMI 41.4
--- OUTSIDE RECORDS SUMMARY | 2024-11-02 14:54 | XMS_ITS | Continuity of Care Document ---
Author Name DOD-MS Organization DOD-MS Care Team Providers Care [employer] Faculty Name Role Phone DOD-MS Unavailable Unavailable Problems Combined list of problems [...] [facility] Exposure to potentially hazardous substance (RUST [id number] ) Active Condition Oct 22, 2023 Entered [...] Site Reaction Lot Number CVX Code Drug Trademark Affixer Status Comments Source INFLUENZA, UNSPECIFIED FORMULATION 2022 88 complet ed HISTORICA L INFORMATI ON - FROM OTHER REGISTRY, [facility] [place] COVID-19 (MODERNA), MRNA, LNP-S, PF, 100 MCG/0.5ML DOSE OR 50 MCG/0.25ML DOSE 2020 207 complet ed Booster for Series, HISTORICA L INFORMATI ON - FROM OTHER PROVIDER, [facility] [place] COVID-19 (PFIZER), MRNA, LNP-S, PF, 30 MCG/0.3 ML DOSE 2 2020 208 complet ed HISTORICA L INFORMATI ON - [facility] COVID-19 (PFIZER), MRNA, LNP-S, PF, 30 MCG/0.3 ML DOSE 1 2020 208 complet ed HISTORICA L INFORMATI ON - [facility] Results Combined list of recent [...] Oct 21, 2023 02:15 PM Reporting Lab: [address] [address] Performing Lab: [address] [address] [facility] HEPATITI S B SURFACE ANTIBODY (HBsAb)- WH HEPATITIS B VIRUS SURFACE AB [PRESENCE] IN SERUM BY IMMUNOASSA Y Non Reactive 10/20 Specimen Type: SERUM No comment entered. Ordering Provider: Pablo STEWART Report Released Date/Time: Oct 21, 2023 02:15 PM Reporting Lab: [address] [address] Performing Lab: [facility] [place] [facility] [address] [facility] [address] [facility] [place] [facility] LIVER FUNCTION PROTEIN [MASS/VOLU ME] IN SERUM OR PLASMA 6.7 g/dL 6.0 - 8.3 10/20 Specimen Type: SERUM No comment entered. Ordering Provider: Pablo STEWART Report Released Date/Time: Oct 21, 2023 02:15 PM Reporting Lab: [facility] [place] [facility] [address] [facility] [address] Performing Lab: [facility] [place] [facility] [address] [facility] [address] [facility] [place] [facility] LIVER FUNCTION ALBUMIN [MASS/VOLU ME] IN SERUM OR PLASMA 4.1 g/dL 3.5 - 5.0 10/20 Specimen Type: SERUM No comment entered. Ordering Provider: Pablo STEWART Report Released Date/Time: Oct 21, 2023 02:15 PM Reporting Lab: [facility] [place] [facility] [address] [facility] [address] Performing Lab: [facility] [place] [facility] [address] [facility] [address] [facility] [facility] LIVER FUNCTION ALKALINE PHOSPHATAS E [ENZYMATIC ACTIVITY/V OLUME] IN SERUM OR PLASMA 84 U/L 40 - 150 10/20 Specimen Type: SERUM No comment entered. Ordering Provider: Pablo STEWART Report Released Date/Time: Oct 21, 2023 02:15 PM Reporting Lab: [facility] [place] [facility] [address] [facility] [address] Performing Lab: [facility] [place] [facility] [address] [facility] [address] [facility] [place] [facility] LIVER FUNCTION ASPARTATE AMINOTRANS FERASE [ENZYMATIC ACTIVITY/V OLUME] IN SERUM OR PLASMA 19 U/L 5 - 34 10/20 Specimen Type: SERUM No comment entered. Ordering Provider: VANWAGNER,W ILLIAM F Report Released Date/Time: Oct 21, 2023 02:15 PM Reporting Lab: [facility] [place] [facility] [address] [facility] [address] Performing Lab: [facility] [place] [facility] [address] [facility] [address] [facility] [place] [facility] LIVER FUNCTION ALANINE AMINOTRANS FERASE [ENZYMATIC ACTIVITY/V OLUME] IN SERUM OR PLASMA 28 U/L 10/20 Specimen Type: SERUM No comment entered. Ordering Provider: Pablo STEWART Report Released Date/Time: Oct 21, 2023 02:15 PM Reporting Lab: [facility] [place] [facility] [address] [facility] [address] Performing Lab: [facility] [place] [facility] [address] [facility] [address] [facility] [place] [facility] LIVER FUNCTION BILIRUBIN. TOTAL [MASS/VOLU ME] IN SERUM OR PLASMA 0.6 mg/dL 0.2 - 1.2 10/20 Specimen Type: SERUM No comment entered. Ordering Provider: Pablo STEWART Report Released Date/Time: Oct 21, 2023 02:15 PM Reporting Lab: [facility] [place] [facility] [address] [facility] [address] Performing Lab: [facility] [place] [facility] [address] [facility] [address] [facility] [place] [facility] LIPID PANEL FASTING CHOLESTERO L [MASS/VOLU ME] IN SERUM OR PLASMA 84 mg/dL 10/20 Specimen Type: SERUM No comment entered. Ordering Provider: Pablo STEWART Report Released Date/Time: Oct 21, 2023 02:15 PM Reporting Lab: [facility] [place] [facility] [address] [facility] [address] Performing Lab: [facility] [place] [facility] [address] [facility] [address] [facility] [place] [facility] LIPID PANEL FASTING TRIGLYCERI DE [MASS/VOLU ME] IN SERUM OR PLASMA 87 mg/dL 0 - 150 10/20 Specimen Type: SERUM No comment entered. Ordering Provider: Pablo STEWART Report Released Date/Time: Oct 21, 2023 02:15 PM Reporting Lab: [facility] [place] [facility] [address] [facility] [address] Performing Lab: [facility] [place] [facility] [address] [facility] [address] [facility] [place] [facility] LIPID PANEL FASTING CHOLESTERO L IN LDL [MASS/VOLU ME] IN SERUM OR PLASMA BY CALCULATIO N 30 mg/dL 0 - 129 10/20 Specimen Type: SERUM No comment entered. Ordering Provider: Pablo STEWRAT Report Released Date/Time: Oct 21, 2023 02:15 PM Reporting Lab: [facility] [place] [facility] [address] [facility] [address] Performing Lab: [facility] [place] [facility] [address] [facility] [address] [facility] [place] [facility] LIPID PANEL FASTING CHOLESTERO L.TOTAL/CH OLESTEROL IN HDL [MASS RATIO] IN SERUM OR PLASMA 2.3 10/20 Specimen Type: SERUM No comment entered. Ordering Provider: Pablo STEWART Report Released Date/Time: Oct 21, 2023 02:15 PM Reporting Lab: [facility] [place] [address] [address] Performing Lab: [facility] [place] [facility] [address] [facility] [address] [facility] [place] [facility] LIPID PANEL FASTING CHOLESTERO L IN HDL [MASS/VOLU ME] IN SERUM OR PLASMA 37 mg/dL 40 - 60 10/20 L Specimen Type: SERUM No comment entered. Ordering Provider: Pablo STEWART Report Released Date/Time: Oct 21, 2023 02:15 PM Reporting Lab: [facility] [place] [facility] [address] [facility] [address] Performing Lab: [facility] [place] [facility] [address] [facility] [address] [facility] [place] [facility] HEMOGLOB IN A1C PANEL HEMOGLOBIN A1C/HEMOGL OBIN.TOTAL [...] Oct 21, 2023 02:15 PM Reporting Lab: [facility] [address] [address] Performing Lab: [facility] [place] [address] [address] [facility] [place] [facility] URINALYS IS COLOR OF URINE Yellow 10/20 Specimen Type: URINE Comment: If Glucose = >500 and Ketones are positive, please alert the Physician. Ordering Provider: Pablo STEWART Report Released Date/Time: Oct 21, 2023 02:15 PM Reporting Lab: [facility] [place] [address] [address] Performing Lab: [facility] [place] [address] [address] [facility]TR[facility] [place] [facility] URINALYS IS APPEARANCE OF URINE Clear 10/20 Specimen Type: URINE Comment: If Glucose = >500 and Ketones are positive, please alert the Physician. Ordering Provider: Pablo STEWART Report Released Date/Time: Oct 21, 2023 02:15 PM Reporting Lab: [facility] [place] [address] [address] Performing Lab: [facility] [place] [address] [address] [facility]TR[facility] [place] [facility] URINALYS IS GLUCOSE [MASS/VOLU ME] IN URINE NEGATIVE mg/dL 10/20 Specimen Type: URINE Comment: If Glucose = >500 and Ketones are positive, please alert the Physician. Ordering Provider: Pablo STEWART Report Released Date/Time: Oct 21, 2023 02:15 PM Reporting Lab: [facility]TR[facility] [place] [address] [address] Performing Lab: [facility] [place] [address] [address] [facility] [place] [facility] URINALYS IS KETONES [MASS/VOLU ME] IN URINE BY TEST STRIP NEGATIVE mg/dL 10/20 Specimen Type: URINE Comment: If Glucose = >500 and Ketones are positive, please alert the Physician. Ordering Provider: Pablo STEWART Report Released Date/Time: Oct 21, 2023 02:15 PM Reporting Lab: [facility]TR[facility] [place] [address] [address] Performing Lab: [facility] [place] [address] [address] [facility]TR[facility] [place] [facility] URINALYS IS ERYTHROCYT ES [PRESENCE] IN URINE SEDIMENT BY LIGHT MICROSCOPY NEGATIVE mg/dL 10/20 Specimen Type: URINE Comment: If Glucose = >500 and Ketones are positive, please alert the Physician. Ordering Provider: Pablo STEWART Report Released Date/Time: Oct 21, 2023 02:15 PM Reporting Lab: [facility] [place] [address] [address] Performing Lab: [facility] [place] [address] [address] [facility] [place] [facility] URINALYS IS PROTEIN [MASS/VOLU ME] IN URINE BY TEST STRIP 20 mg/dL 10/20 Specimen Type: URINE Comment: If Glucose = >500 and Ketones are positive, please alert the Physician. Ordering Provider: Pablo STEWART Report Released Date/Time: Oct 21, 2023 02:15 PM Reporting Lab: [facility] [place] [facility] [address] [facility] [address] Performing Lab: [facility] [place] [facility] [address] [facility] [address] [facility] [place] [facility] URINALYS IS NITRITE [PRESENCE] IN URINE NEGATIVE mg/dL 10/20 Specimen Type: URINE Comment: If Glucose = >500 and Ketones are positive, please alert the Physician. Ordering Provider: Pablo STEWART Report Released Date/Time: Oct 21, 2023 02:15 PM Reporting Lab: [facility] [place] [facility] [address] [facility] [address] Performing Lab: [facility] [place] [facility] [address] [facility] [address] [facility] [place] [facility] URINALYS IS BILIRUBIN. TOTAL [PRESENCE] IN URINE NEGATIVE mg/dL 10/20 Specimen Type: URINE Comment: If Glucose = >500 and Ketones are positive, please alert the Physician. Ordering Provider: Pablo STEWART Report Released Date/Time: Oct 21, 2023 02:15 PM Reporting Lab: [facility] [place] [facility] [address] [facility] [address] Performing Lab: [facility] [place] [facility] [address] [facility] [address] [facility] [place] [facility] URINALYS IS SPECIFIC GRAVITY OF URINE BY REFRACTOME TRY 1.024 1.016 - 1.022 10/20 H Specimen Type: URINE Comment: If Glucose = >500 and Ketones are positive, please alert the Physician. Ordering Provider: Pablo STEWART Report Released Date/Time: Oct 21, 2023 02:15 PM Reporting Lab: [facility] [place] [facility] [address] [facility] [address] Performing Lab: [facility] [facility] [address] [facility] [address] [facility] [place] [facility] URINALYS IS PH OF URINE BY TEST STRIP 6.0 5.0 - 9.0 10/20 Specimen Type: URINE Comment: If Glucose = >500 and Ketones are positive, please alert the Physician. Ordering Provider: Pablo STEWART Report Released Date/Time: Oct 21, 2023 02:15 PM Reporting Lab: [facility] [place] [facility] [address] [facility] [address] Performing Lab: [facility]ITALRBA[facility]ITALTRN [place] [address] [address] [facility]ITALTRN [place] [facility] URINALYS IS UROBILINOG EN [MASS/VOLU ME] IN URINE BY TEST STRIP <2.0mg/d L <2.0 - 2.0 10/20 Specimen Type: URINE Comment: If Glucose = >500 and Ketones are positive, please alert the Physician. Ordering Provider: Pablo STEWART Report Released Date/Time: Oct 21, 2023 02:15 PM Reporting Lab: [facility]ITALTR[facility] [place] [address] [address] Performing Lab: [facility] [place] [address] [address] [facility]ERN [place] [facility] URINALYS IS LEUKOCYTE ESTERASE [PRESENCE] IN URINE BY TEST STRIP NEGATIVE 10/20 Specimen Type: URINE Comment: If Glucose = >500 and Ketones are positive, please alert the Physician. Ordering Provider: Pablo STEWART Report Released Date/Time: Oct 21, 2023 02:15 PM Reporting Lab: [facility]TR[facility] [place] [address] [address] Performing Lab: [facility]RL TRN [place] [address] [address] [facility]ITALTR[facility] [place] [facility] MICROALB UMIN CREATINI NE RATIO PANEL MICROALBUM IN/CREATIN INE [MASS RATIO] IN URINE 6.2 mg/g 0 - 29.9 10/20 Specimen Type: URINE No comment entered. Ordering Provider: Pablo STEWART Report Released Date/Time: Oct 21, 2023 02:15 PM Reporting Lab: [facility] [place] [facility] [address] [facility] [address] Performing Lab: [facility] [place] [facility] [address] [facility] [address] [facility] [place] [facility] MICROALB UMIN CREATINI NE RATIO PANEL MICROALBUM IN [MASS/VOLU ME] IN URINE 1.5 mg/dL 10/20 Specimen Type: URINE No comment entered. Ordering Provider: Pablo STEWART Report Released Date/Time: Oct 21, 2023 02:15 PM Reporting Lab: [facility] [place] [facility] [address] [facility] [address] Performing Lab: [facility] [place] [facility] [address] [facility] [address] [facility] [place] [facility] MICROALB UMIN CREATINI NE RATIO PANEL CREATININE [MASS/VOLU ME] IN URINE 240.98 mg/dL 10/20 Specimen Type: URINE No comment entered. Ordering Provider: Pablo STEWART Report Released Date/Time: Oct 21, 2023 02:15 PM Reporting Lab: [facility] [place] [facility] [address] [facility] [address] Performing Lab: [facility] [place] [facility] [address] [facility] [address] [facility] [place] [facility] URIC ACID URATE [MASS/VOLU ME] IN SERUM OR PLASMA 5.4 mg/dL 3.5 - 7.2 10/20 Specimen Type: SERUM No comment entered. Ordering Provider: Pablo STEWART Report Released Date/Time: Oct 21, 2023 02:15 PM Reporting Lab: [facility] [place] [facility] [address] [facility] [address] Performing Lab: [facility] [place] [facility] [address] [facility] [address] [facility] [place] [facility] CBC AND DIFF (AUTO) LEUKOCYTES [#/VOLUME] IN BLOOD BY AUTOMATED COUNT 5.99 10*3/uL 4.50 - 11.00 10/20 Specimen Type: BLOOD No comment entered. Ordering Provider: Pablo STEWART Report Released Date/Time: Oct 21, 2023 02:23 PM Reporting Lab: [facility] [place] [facility] [address] [facility] [address] Performing Lab: [facility] [place] [facility] [address] [facility] [address] [facility] [place] [facility] CBC AND DIFF (AUTO) ERYTHROCYT ES [#/VOLUME] IN BLOOD BY AUTOMATED COUNT 4.47 10*6/uL 4.23 - 5.66 10/20 Specimen Type: BLOOD No comment entered. Ordering Provider: Pablo STEWART Report Released Date/Time: Oct 21, 2023 02:23 PM Reporting Lab: [facility] [place] [facility] [address] [facility] [address] Performing Lab: [facility] [place] [facility] [address] [facility] [address] [facility] [place] [facility] CBC AND DIFF (AUTO) HEMOGLOBIN [MASS/VOLU ME] IN BLOOD 14.0 g/dL 12.8 - 17 10/20 Specimen Type: BLOOD No comment entered. Ordering Provider: Pablo STEWART Report Released Date/Time: Oct 21, 2023 02:23 PM Reporting Lab: [facility] [place] [facility] [address] [facility] [address] Performing Lab: [facility] [place] [facility] [address] [facility] [address] [facility] [place] [facility] CBC AND DIFF (AUTO) HEMATOCRIT [VOLUME FRACTION] OF BLOOD BY AUTOMATED COUNT 40.0 39.2 - 50.4 10/20 Specimen Type: BLOOD No comment entered. Ordering Provider: Pablo STEWART Report Released Date/Time: Oct 21, 2023 02:23 PM Reporting Lab: [facility] [place] [facility] [address] [facility] [address] Performing Lab: [facility] [place] [address] [address] [facility] [place] [facility] CBC AND DIFF (AUTO) MCV [ENTITIC VOLUME] BY AUTOMATED COUNT 89.5 fL 82 - 99 10/20 Specimen Type: BLOOD No comment entered. Ordering Provider: Pablo STEWART Report Released Date/Time: Oct 21, 2023 02:23 PM Reporting Lab: [facility] [place] [facility] [address] [facility] [address] Performing Lab: [facility] [place] [facility] [address] [facility] [address] [facility] [place] [facility] CBC AND DIFF (AUTO) MCHC [MASS/VOLU ME] BY AUTOMATED COUNT 35.0 g/dL 30.8 - 35.1 10/20 Specimen Type: BLOOD No comment entered. Ordering Provider: Pablo STEWART Report Released Date/Time: Oct 21, 2023 02:23 PM Reporting Lab: [facility] [place] [facility] [address] [facility] [address] Performing Lab: [facility] [facility] [address] [facility] [address] [facility] [place] [facility] CBC AND DIFF (AUTO) PLATELETS [#/VOLUME] IN BLOOD BY AUTOMATED COUNT 211 10*3/uL 140 - 360 10/20 Specimen Type: BLOOD No comment entered. Ordering Provider: Pablo STEWART Report Released Date/Time: Oct 21, 2023 02:23 PM Reporting Lab: [facility] [place] [facility] [address] [facility] [address] Performing Lab: [facility] [place] [facility] [address] [facility] [address] [facility] [place] [facility] CBC AND DIFF (AUTO) ERYTHROCYT E DISTRIBUTI ON WIDTH [RATIO] BY AUTOMATED COUNT 12.3 12.0 - 16.0 10/20 Specimen Type: BLOOD No comment entered. Ordering Provider: Pablo STEWART Report Released Date/Time: Oct 21, 2023 02:23 PM Reporting Lab: [facility] [place] [facility] [address] [facility] [address] Performing Lab: [facility] [place] [facility] [address] [facility] [address] [facility] [place] [facility] CBC AND DIFF (AUTO) MONOCYTES [#/VOLUME] IN BLOOD BY AUTOMATED COUNT 0.38 10*3/uL 0.30 - 1.10 10/20 Specimen Type: BLOOD No comment entered. Ordering Provider: Pablo STEWART Report Released Date/Time: Oct 21, 2023 02:23 PM Reporting Lab: [facility] [place] [facility] [address] [facility] [address] Performing Lab: [facility] [place] [facility] [address] [facility] [address] [facility] [place] [facility] CBC AND DIFF (AUTO) MCH [ENTITIC MASS] BY AUTOMATED COUNT 31.3 pg 26.2 - 32.6 10/20 Specimen Type: BLOOD No comment entered. Ordering Provider: Pablo STEWART Report Released Date/Time: Oct 21, 2023 02:23 PM Reporting Lab: [facility] [place] [address] [address] Performing Lab: [facility] [place] [facility] [address] [facility] [address] [facility] [place] [facility] CBC AND DIFF (AUTO) NEUTROPHIL S/100 LEUKOCYTES IN BLOOD BY AUTOMATED COUNT 72.5 43.7 - 75.8 10/20 Specimen Type: BLOOD No comment entered. Ordering Provider: Pablo STEWART Report Released Date/Time: Oct 21, 2023 02:23 PM Reporting Lab: [facility] [place] [facility] [address] [facility] [address] Performing Lab: [facility] [place] [facility] [address] [facility] [address] [facility] [place] [facility] CBC AND DIFF (AUTO) LYMPHOCYTE S/100 LEUKOCYTES IN BLOOD BY AUTOMATED COUNT 17.5 14.0 - 42.3 04/25 /2024 Specimen Type: BLOOD No comment entered. Ordering Provider: Pablo STEWART Report Released Date/Time: Oct 21, 2023 02:23 PM Reporting Lab: [facility] [place] [facility] [address] [facility] [address] Performing Lab: [facility] [place] [facility] [address] [facility] [address] [facility] [place] [facility] CBC AND DIFF (AUTO) MONOCYTES/ 100 LEUKOCYTES IN BLOOD BY AUTOMATED COUNT 6.3 5.1 - 13.7 10/20 Specimen Type: BLOOD No comment entered. Ordering Provider: Pablo STEWART Report Released Date/Time: Oct 21, 2023 02:23 PM Reporting Lab: [facility] [address] [facility] [address] Performing Lab: [facility] [address] [facility] [address] [facility] CBC AND DIFF (AUTO) EOSINOPHIL S/100 LEUKOCYTES IN BLOOD BY AUTOMATED COUNT 2.7 0.4 - 6.8 10/20 Specimen Type: BLOOD No comment entered. Ordering Provider: Pablo STEWART Report Released Date/Time: Oct 21, 2023 02:23 PM Reporting Lab: [facility] [address] [facility] [address] Performing Lab: [facility] [address] [facility] [address] [facility] CBC AND DIFF (AUTO) BASOPHILS/ 100 LEUKOCYTES IN BLOOD BY AUTOMATED COUNT 0.8 0.1 - 2.0 10/20 Specimen Type: BLOOD No comment entered. Ordering Provider: Pablo STEWART Report Released Date/Time: Oct 21, 2023 02:23 PM Reporting Lab: [facility] [address] [facility] [address] Performing Lab: [facility] [address] [facility] [address] [facility] CBC AND DIFF (AUTO) NEUTROPHIL S [#/VOLUME] IN BLOOD BY AUTOMATED COUNT 4.34 10*3/uL 2.20 - 7.60 10/20 Specimen Type: BLOOD No comment entered. Ordering Provider: Pablo STEWART Report Released Date/Time: Oct 21, 2023 02:23 PM Reporting Lab: [facility] [facility] [address] [facility] [address] Performing Lab: [facility] [place] [facility] [address] [facility] [address] [facility] [place] [facility] CBC AND DIFF (AUTO) LYMPHOCYTE S [#/VOLUME] IN BLOOD BY AUTOMATED COUNT 1.05 10*3/uL 1.00 - 3.20 10/20 Specimen Type: BLOOD No comment entered. Ordering Provider: Pablo STEWART Report Released Date/Time: Oct 21, 2023 02:23 PM Reporting Lab: [facility] [place] [address] [address] Performing Lab: [facility] [place] [address] [address] [facility] [place] [facility] CBC AND DIFF (AUTO) EOSINOPHIL S [#/VOLUME] IN BLOOD BY AUTOMATED COUNT 0.16 10*3/uL 0.03 - 0.44 10/20 Specimen Type: BLOOD No comment entered. Ordering Provider: Pablo STEWART Report Released Date/Time: Oct 21, 2023 02:23 PM Reporting Lab: [facility] [place] [facility] [address] [facility] [address] Performing Lab: [facility] [place] [address] [address] [facility] CBC AND DIFF (AUTO) BASOPHILS [#/VOLUME] IN BLOOD BY AUTOMATED COUNT 0.05 10*3/uL 0.01 - 0.13 10/20 Specimen Type: BLOOD No comment entered. Ordering Provider: Pablo STEWART Report Released Date/Time: Oct 21, 2023 02:23 PM Reporting Lab: [facility] [place] [facility] [address] [facility] [address] Performing Lab: [facility] [place] [facility] [address] [facility] [address] [facility] [place] [facility] CBC AND DIFF (AUTO) IMMATURE GRANULOCYT ES/100 LEUKOCYTES IN BLOOD BY AUTOMATED COUNT 0.2 0.0 - 0.7 10/20 Specimen Type: BLOOD No comment entered. Ordering Provider: Pablo STEWART Report Released Date/Time: Oct 21, 2023 02:23 PM Reporting Lab: [facility] [place] [facility] [address] [facility] [address] Performing Lab: [facility] [place] [facility] [address] [facility] [address] [facility] [place] [facility] CBC AND DIFF (AUTO) IMMATURE GRANULOCYT ES [#/VOLUME] IN BLOOD 0.01 10*3/uL 0.00 - 0.06 10/20 Specimen Type: BLOOD No comment entered. Ordering Provider: Pablo STEWART Report Released Date/Time: Oct 21, 2023 02:23 PM Reporting Lab: [facility] [place] [facility] [address] [facility] [address] Performing Lab: [facility] [place] [facility] [address] [facility] [address] [facility] [place] [facility] TSH THYROTROPI N [UNITS/VOL UME] IN SERUM OR PLASMA 1.46 u[IU]/mL 0.35 - 5.00 10/20 Specimen Type: SERUM No comment entered. Ordering Provider: Pablo STEWART Report Released Date/Time: Oct 21, 2023 02:15 PM Reporting Lab: [facility] [place] [facility] [address] [facility] [address] Performing Lab: [facility] [place] [address] [address] [facility] [place] [facility] Vital Signs Combined list of inpatient [...] included; 2) Encounters from the Department of [facility] facilities going backup to 280 months. Location Location Details Encounter Type Encounter Number Reason For Visit Attending Provider ADM Date DC Date Status Disposition Source [facility] En[facility] [id number] 10/11 [facility] [id number] 10/11 [facility] [id number] 10/14 [facility] En[facility] [id number] 10/14 [facility] OFFICE O/P NEW MOD 45 MIN [id number] Diagnos is: ICD-10- CM 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, unspeci MARILUZ Grider 10/20 [facility] En[facility] [id number] Diagnos is: ICD-10- CM E66.09 Other obesity due to excess calorie s MANEKAS,DI NA L 11/17 [facility] En[facility] [id number] 11/25 [facility] En[facility] [id number] Diagnos is: ICD-10- CM E66.09 Other obesity due to excess calorie s MANEKAS,DI NA L 12/13 [facility] En[facility] [id number] 01/10 [facility] [id number] Diagnos is: ICD-10- CM E66.09 Other obesity due to excess calorie s MANEKAS,DI NA L 01/13 [facility] En[facility] [id number] 02/20 [facility] Encounter [id number] Diagnos is: ICD-10- CM E66.09 Other obesity due to excess calorie s MANEKAS,DI NA L 02/20 [facility] Encounter [id number] SARAH GARCIA ISTOPHER E 02/23 [facility] En[facility] [id number] Diagnos is: ICD-10- CM E66.09 Other obesity due to excess calorie s MANDARINELAS,DI NA L 03/13 [facility] Outpatient [facility]counter [id number] 03/27 [facility] Outpatient Encounter [id number] Diagnos is: ICD-10- CM E66.09 Other obesity due to excess calorie s MANDARINELAS,DI NA L 04/14 [facility] [place] Outpatient Encounter [id number] 05/02 [facility] Social History Combined list of available smoking, tobacco, and other social 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 Social History Type Response Date Comment Sourc e Tobacco smoking status [facility] NEVER USED 10/15/2023 [facility] [place] [facility]
--- OUTSIDE RECORDS SUMMARY | 2024-11-02 14:54 | XMS_ITS | Clinical Summary ---
Author Organization [facility] Address [address] [place] [address] Care Team Providers Care Car Stereo Installer Name Role Phone Gabby Kelly Primary Care Provider [phone] Allergies No known active allergies Medications amLODIPine [...] Description 08/15/2024 11:00 AM EST Office Visit [facility] [address] [place] [address] Authorization Representative: Vikram Pace MD Chronic cough (Primary Dx) 08/15/2024 10:00 AM EST - 08/15/2024 11:59 PM EST Hospital Encounter [facility] [address] [place] [address] Vikram Barbour MD Chronic cough Discharge Disposition: [...] Additional history exists Procedures * Due to [place] [employer] law, this organization might not be sharing negative HIV tests. Procedure Name Priority Date/Time Associated Diagnosis Comments XR CHEST 2 VW Routine 08/15/2024 10:05 AM EST Chronic cough from Last 3 Months Results * Due to [place] [employer] law, this organization might not be sharing [...] obtain the completed interpretation. ? Workstation ID: [id number] Narrative 08/16/2024 9:37 AM EST COMPARISON: ??None FINDINGS AND Resulting Agency Comment [id number] Procedure Note Vikram Fiore MD - 08/16/2024 [...] possible to obtain thecompleted interpretation. Workstation ID: [id number] us Vikram Barbour MD IMG XR PROCEDURES Final Res ult from Last 3 Months Insurance [facility] Care Teams Car Stereo Installer Relationship Specialty Start Date End Date Gabby Kelly [address] [place] [address] PCP - General Internal Medicine 08/15/24
--- OUTSIDE RECORDS SUMMARY | 2024-11-02 14:54 | XMS_ITS | Clinical Summary ---
Author Organization [facility] Address [address] [facility] [address] [place] [address] Phone Care Team Providers Care Inside Wireman Name Role Phone Gabby Kelly MD Primary Care Provider [phone] Allergies No known active allergies Medications Multiple Vitamins-Packer And Carry Out als (MULTIVITAMIN ADULT EXTRA C PO) Take [...] Vaccine (Season Ended) 2025 Insurance Medicaid [place] [facility] [place] [facility] Care Teams Inside Wireman Relationship Specialty Start Date End Date Gabby Kelly MD [place] [place] [address] PCP - General 07/08/20
--- OUTSIDE RECORDS SUMMARY | 2024-11-02 14:54 | XMS_ITS | Referral Summary ---
Author Organization [facility] Address [address] [place] [address] Care Team Providers Care Bronc Buster Name Role Phone Gabby Kelly Primary Care Provider [phone] Encounters Date Type Department Care Team Description 08/15/2024 10:00 AM EST - 08/15/2024 11:59 PM EST Hospital Encounter [facility] [address] [place] [address] Vikram Barbour MD Chronic cough Discharge Disposition: Home or Self Care () 08/15/2024 11:00 AM EST Office Visit [facility] [address] [place] [address] Electrician Office: Vikram Pace MD Chronic cough (Primary Dx) [...] Not on file Procedures * Due to [place] [employer] law, this organization might not be sharing negative HIV tests. Procedure Name Priority Date/Time Associated Diagnosis Comments XR CHEST 2 VW Routine 08/15/2024 10:05 AM EST Chronic cough from Last 3 Months Results * Due to [place] [employer] law, this organization might not be sharing [...] obtain the completed interpretation. ? Workstation ID: [id number] Narrative 08/16/2024 9:37 AM EST COMPARISON: ??None FINDINGS AND Resulting Agency Comment [id number] Procedure Note Vikram Fiore MD - 08/16/2024 [...] possible to obtain thecompleted interpretation. Workstation ID: [id number] us Vikram Barbour MD IMG XR PROCEDURES Final Res ult from Last 3 Months Insurance [facility] Care Teams Bronc Buster Relationship Specialty Start Date End Date Gabby Kelly [address] [facility] [place] [address] PCP - General Internal Medicine 08/15/24
== END 2024-11-02 14:31 | disposition home or self-care (01) ==
LOC: HO.PMC 13:59
PROVIDERS: PCP Internal Medicine; Visit Provider Anesthesiology
DX: M16.9 Osteoarthritis of hip, unspecified (principal); M47.816 Spondylosis without myelopathy or radiculopathy, lumbar region; E11.42 Type 2 diabetes mellitus with diabetic polyneuropathy; G90.523 Complex regional pain syndrome I of lower limb, bilateral; M53.3 Sacrococcygeal disorders, not elsewhere classified; M46.1 Sacroiliitis, not elsewhere classified; M47.815 Spondylosis without myelopathy or radiculopathy, thoracolumbar region; M51.369 Other intervertebral disc degeneration, lumbar region without mention of lumbar back pain or lower extremity pain
CPT/HCPCS: 99213

== ENCOUNTER 2024-12-26 06:49 | Outpatient (REF) | payer OTHER, SELFPAY ==
--- NOTE | ~2024-12-26 | FL_ITS ---
EXAMINATION: FL GUIDANCE ONLY HISTORY: M47.816 - Spondylosis without myelopathy or radiculopathy, lumbar region COMPARISON: None available. TECHNIQUE: Fluoroscopy time: 0.5 minutes. Cumulative Dose: 25.3 mGy. DAP: 0.439 mGym2 Images: 6. FINDINGS: Fluoroscopic spot films of the lumbar spine in the AP projection demonstrate needles and contrast material in the regions of the bilateral L3-4, L4-5, and L5-S1 facet joints. FL/FL guidance in treatment room IMPRESSION: Fluoroscopy during procedure. Please see procedure report for additional information. Electronically signed by: Ken Juarez MD 12/26/2024 03:21 PM EDT
--- OUTSIDE RECORDS SUMMARY | 2024-12-26 01:50 | XMS_ITS | Continuity of Care Document ---
Author Name [facility] Organization [facility] Care Team Providers Care Button Cutting Machine Operator Name Role Phone [facility] Unavailable Unavailable Problems Combined list of problems [...] [facility] Exposure to potentially hazardous substance ([facility] [id number] ) Active Condition Oct 22, 2023 Entered [...] Site Reaction Lot Number CVX Code Drug Public Information Specialist Status Comments Source INFLUENZA, UNSPECIFIED FORMULATION 2022 88 complet ed HISTORICA L INFORMATI ON - FROM OTHER REGISTRY, [facility] [place] COVID-19 (MODERNA), MRNA, LNP-S, PF, 100 MCG/0.5ML DOSE OR 50 MCG/0.25ML DOSE 2020 207 complet ed Booster for Series, HISTORICA L INFORMATI ON - FROM OTHER PROVIDER, [facility] [place] COVID-19 (PFIZER), MRNA, LNP-S, PF, 30 MCG/0.3 ML DOSE 2 2020 208 complet ed HISTORICA L INFORMATI ON - [facility] COVID-19 (PFIZER), MRNA, LNP-S, PF, 30 MCG/0.3 ML DOSE 1 2020 208 complet ed HISTORICA L INFORMATI ON - [facility] PROVID[facility] Results Combined list of recent [...] Oct 21, 2023 02:15 PM Reporting Lab: [address] [address] Performing Lab: [address] [address] [facility] HEPATITI S B SURFACE ANTIBODY (HBsAb)- WH HEPATITIS B VIRUS SURFACE AB [PRESENCE] IN SERUM BY IMMUNOASSA Y Non Reactive 10/20 Specimen Type: SERUM No comment entered. Ordering Provider: Pablo STEWART Report Released Date/Time: Oct 21, 2023 02:15 PM Reporting Lab: [address] [address] Performing Lab: [facility] [address] [facility] [address] [facility] HEPATITI S C ANTIBODY (HCV)-AR C HEPATITIS C VIRUS AB [PRESENCE] IN SERUM NON-REAC TIVE 10/20 Specimen Type: SERUM Comment: Hep C Ab: No HCV antibody detected. If recent infection is suspected or other evidence suggests HCV infection, consider HCV nucleic acid testing Ordering Provider: Pablo STEWART Report Released Date/Time: Oct 21, 2023 02:15 PM Reporting Lab: [facility] [address] [facility] [address] Performing Lab: [facility] [address] [address] [facility] BASIC METABOLI C PANEL (fasting ) UREA NITROGEN [MASS/VOLU ME] IN SERUM OR PLASMA 28 mg/dL 7 - 25 10/20 H Specimen Type: SERUM No comment entered. Ordering Provider: Pablo STEWART Report Released Date/Time: Oct 21, 2023 02:15 PM Reporting Lab: [facility] [address] [address] Performing Lab: [facility] [address] [facility] [address] [facility] BASIC METABOLI C PANEL (fasting ) GLUCOSE [MASS/VOLU ME] IN SERUM OR PLASMA 147 mg/dL 65 - 100 10/20 H Specimen Type: SERUM No comment entered. Ordering Provider: Pablo STEWART Report Released Date/Time: Oct 21, 2023 02:15 PM Reporting Lab: [facility] [address] [address] Performing Lab: [facility] [address] [address] [facility] BASIC METABOLI C PANEL (fasting ) SODIUM [MOLES/VOL UME] IN SERUM OR PLASMA 139 mmol/L 135 - 145 10/20 Specimen Type: SERUM No comment entered. Ordering Provider: Pablo STEWART Report Released Date/Time: Oct 21, 2023 02:15 PM Reporting Lab: [facility] [place] [facility] [address] [facility] [address] Performing Lab: [facility] [place] [address] [address] [facility] [facility] BASIC METABOLI C PANEL (fasting ) POTASSIUM [MOLES/VOL UME] IN SERUM OR PLASMA 4.4 mmol/L 3.5 - 5.0 10/20 Specimen Type: SERUM No comment entered. Ordering Provider: Pablo STEWART Report Released Date/Time: Oct 21, 2023 02:15 PM Reporting Lab: [facility] [place] [address] [address] Performing Lab: [facility] [place] [address] [address] [facility] [place] [facility] BASIC METABOLI C PANEL (fasting ) CHLORIDE [MOLES/VOL UME] IN SERUM OR PLASMA 103 mmol/L 100 - 110 10/20 Specimen Type: SERUM No comment entered. Ordering Provider: Pablo STEWART Report Released Date/Time: Oct 21, 2023 02:15 PM Reporting Lab: [facility] [place] [address] [address] Performing Lab: [facility] [place] [address] [address] [facility] [place] [facility] BASIC METABOLI C PANEL (fasting ) CARBON DIOXIDE, TOTAL [MOLES/VOL UME] IN SERUM OR PLASMA 27 meq/L 20 - 30 10/20 Specimen Type: SERUM No comment entered. Ordering Provider: Pablo STEWART Report Released Date/Time: Oct 21, 2023 02:15 PM Reporting Lab: [facility] [place] [address] [address] Performing Lab: [facility] [place] [address] [place] [address] [facility] [place] [facility] BASIC METABOLI C PANEL (fasting ) CREATININE [MASS/VOLU ME] IN SERUM OR PLASMA 1.74 mg/dL 0.50 - 1.40 10/20 H Specimen Type: SERUM No comment entered. Ordering Provider: Pablo STEWART Report Released Date/Time: Oct 21, 2023 02:15 PM Reporting Lab: [facility] [place] [address] [address] Performing Lab: [facility] [place] [address] [address] [facility] [place] [facility] BASIC METABOLI C PANEL (fasting ) GLOMERULAR FILTRATION RATE/1.73 SQ M.PREDICTE D [VOLUME RATE/AREA] IN SERUM, PLASMA OR BLOOD BY CREATININE -BASED FORMULA (CKD-EPI 2020) 45 mL/min 60 10/20 L Specimen Type: SERUM No comment entered. Ordering Provider: Pablo STEWART Report Released Date/Time: Oct 21, 2023 02:15 PM Reporting Lab: [facility] [place] [address] [address] Performing Lab: [facility] [place] [address] [address] [facility] [place] [facility] LIVER FUNCTION PROTEIN [MASS/VOLU ME] IN SERUM OR PLASMA 6.7 g/dL 6.0 - 8.3 10/20 Specimen Type: SERUM No comment entered. Ordering Provider: Pablo STEWART Report Released Date/Time: Oct 21, 2023 02:15 PM Reporting Lab: [facility] [place] [address] [address] Performing Lab: [facility] [place] [address] [address] [facility] [place] [facility] LIVER FUNCTION ALBUMIN [MASS/VOLU ME] IN SERUM OR PLASMA 4.1 g/dL 3.5 - 5.0 10/20 Specimen Type: SERUM No comment entered. Ordering Provider: Pablo STEWART Report Released Date/Time: Oct 21, 2023 02:15 PM Reporting Lab: [facility] [place] [facility] [address] [facility] [address] Performing Lab: [facility] [place] [facility] [address] [facility] [address] [facility] [place] [facility] LIVER FUNCTION ALKALINE PHOSPHATAS E [ENZYMATIC ACTIVITY/V OLUME] IN SERUM OR PLASMA 84 U/L 40 - 150 10/20 Specimen Type: SERUM No comment entered. Ordering Provider: Pablo STEWART Report Released Date/Time: Oct 21, 2023 02:15 PM Reporting Lab: [facility] [place] [facility] [address] [facility] [address] Performing Lab: [facility] [place] [facility] [address] [facility] [address] [facility] [place] [facility] LIVER FUNCTION ASPARTATE AMINOTRANS FERASE [ENZYMATIC ACTIVITY/V OLUME] IN SERUM OR PLASMA 19 U/L 5 - 34 10/20 Specimen Type: SERUM No comment entered. Ordering Provider: Pablo STEWART Report Released Date/Time: Oct 21, 2023 02:15 PM Reporting Lab: [facility] [place] [facility] [address] [facility] [address] Performing Lab: [facility] [place] [facility] [address] [facility] [address] [facility] [place] [facility] LIVER FUNCTION ALANINE AMINOTRANS FERASE [ENZYMATIC ACTIVITY/V OLUME] IN SERUM OR PLASMA 28 U/L 10/20 Specimen Type: SERUM No comment entered. Ordering Provider: Pablo STEWART Report Released Date/Time: Oct 21, 2023 02:15 PM Reporting Lab: [facility] [place] [facility] [address] [facility] [address] Performing Lab: [facility] [place] [facility] [address] [facility] [address] [facility] [place] [facility] LIVER FUNCTION BILIRUBIN. TOTAL [MASS/VOLU ME] IN SERUM OR PLASMA 0.6 mg/dL 0.2 - 1.2 10/20 Specimen Type: SERUM No comment entered. Ordering Provider: Pablo STEWART Report Released Date/Time: Oct 21, 2023 02:15 PM Reporting Lab: [facility] [place] [address] [address] Performing Lab: [facility] [place] [address] [address] [facility] [place] [facility] LIPID PANEL FASTING CHOLESTERO L [MASS/VOLU ME] IN SERUM OR PLASMA 84 mg/dL 10/20 Specimen Type: SERUM No comment entered. Ordering Provider: Pablo STEWART Report Released Date/Time: Oct 21, 2023 02:15 PM Reporting Lab: [facility] [place] [address] [address] Performing Lab: [facility] [place] [address] [address] [facility] [place] [facility] LIPID PANEL FASTING TRIGLYCERI DE [MASS/VOLU ME] IN SERUM OR PLASMA 87 mg/dL 0 - 150 10/20 Specimen Type: SERUM No comment entered. Ordering Provider: Pablo STEWART Report Released Date/Time: Oct 21, 2023 02:15 PM Reporting Lab: [facility] [place] [address] [address] Performing Lab: [facility] [place] [address] [address] [facility] [place] [facility] LIPID PANEL FASTING CHOLESTERO L IN LDL [MASS/VOLU ME] IN SERUM OR PLASMA BY CALCULATIO N 30 mg/dL 0 - 129 10/20 Specimen Type: SERUM No comment entered. Ordering Provider: Pablo STEWART Report Released Date/Time: Oct 21, 2023 02:15 PM Reporting Lab: [facility] [place] [address] [address] Performing Lab: [facility] [address] [facility] [address] [facility] LIPID PANEL FASTING CHOLESTERO L.TOTAL/CH OLESTEROL IN HDL [MASS RATIO] IN SERUM OR PLASMA 2.3 10/20 Specimen Type: SERUM No comment entered. Ordering Provider: Pablo STEWART Report Released Date/Time: Oct 21, 2023 02:15 PM Reporting Lab: [facility] [address] [facility] [address] Performing Lab: [facility]USE[facility] [address] [facility] [address] [facility] LIPID PANEL FASTING CHOLESTERO L IN HDL [MASS/VOLU ME] IN SERUM OR PLASMA 37 mg/dL 40 - 60 10/20 L Specimen Type: SERUM No comment entered. Ordering Provider: Pablo STEWART Report Released Date/Time: Oct 21, 2023 02:15 PM Reporting Lab: [facility] [address] [facility] [address] Performing Lab: [facility] TRN [facility]ENTERUSE[address] [address] [facility] HEMOGLOB IN A1C PANEL HEMOGLOBIN [...] Oct 21, 2023 02:15 PM Reporting Lab: [address] [address] Performing Lab: [address] [address] [facility] URINALYS IS COLOR OF URINE Yellow 10/20 Specimen Type: URINE Comment: If Glucose = >500 and Ketones are positive, please alert the Physician. Ordering Provider: Pablo STEWART Report Released Date/Time: Oct 21, 2023 02:15 PM Reporting Lab: [facility] [place] [facility] [address] [facility] [address] Performing Lab: [facility] [place] [facility] [address] [facility] [address] [facility] URINALYS IS APPEARANCE OF URINE Clear 10/20 Specimen Type: URINE Comment: If Glucose = >500 and Ketones are positive, please alert the Physician. Ordering Provider: Pablo STEWART Report Released Date/Time: Oct 21, 2023 02:15 PM Reporting Lab: [facility] [place] [address] [address] Performing Lab: [facility] [place] [facility] [address] [facility] [address] [facility] [place] [facility] URINALYS IS GLUCOSE [MASS/VOLU ME] IN URINE NEGATIVE mg/dL 10/20 Specimen Type: URINE Comment: If Glucose = >500 and Ketones are positive, please alert the Physician. Ordering Provider: Pablo STEWART Report Released Date/Time: Oct 21, 2023 02:15 PM Reporting Lab: [facility] [place] [facility] [address] [facility] [address] Performing Lab: [facility] [place] [facility] [address] [facility] [address] [facility] [place] URINALYS IS KETONES [MASS/VOLU ME] IN URINE BY TEST STRIP NEGATIVE mg/dL 10/20 Specimen Type: URINE Comment: If Glucose = >500 and Ketones are positive, please alert the Physician. Ordering Provider: Pablo STEWART Report Released Date/Time: Oct 21, 2023 02:15 PM Reporting Lab: [facility] [place] [facility] [address] [facility] [address] Performing Lab: [facility] [place] [facility] [address] [facility] [address] [facility] [place] [facility] URINALYS IS ERYTHROCYT ES [PRESENCE] IN URINE SEDIMENT BY LIGHT MICROSCOPY NEGATIVE mg/dL 10/20 Specimen Type: URINE Comment: If Glucose = >500 and Ketones are positive, please alert the Physician. Ordering Provider: Pablo STEWART Report Released Date/Time: Oct 21, 2023 02:15 PM Reporting Lab: [facility] [place] [facility] [address] [facility] [address] Performing Lab: [facility] [place] [facility] [address] [facility] [address] [facility] [place] [facility] URINALYS IS PROTEIN [MASS/VOLU ME] IN URINE BY TEST STRIP 20 mg/dL 10/20 Specimen Type: URINE Comment: If Glucose = >500 and Ketones are positive, please alert the Physician. Ordering Provider: Pablo STEWART Report Released Date/Time: Oct 21, 2023 02:15 PM Reporting Lab: [facility] [place] [facility] [address] [facility] [address] Performing Lab: [facility] [place] [facility] [address] [facility] [address] [facility] [place] [facility] URINALYS IS NITRITE [PRESENCE] IN URINE NEGATIVE mg/dL 10/20 Specimen Type: URINE Comment: If Glucose = >500 and Ketones are positive, please alert the Physician. Ordering Provider: Pablo STEWART Report Released Date/Time: Oct 21, 2023 02:15 PM Reporting Lab: [facility] [place] [facility] [address] [facility] [address] Performing Lab: [facility] [place] [facility] [address] [facility] [address] [facility] [place] [facility] URINALYS IS BILIRUBIN. TOTAL [PRESENCE] IN URINE NEGATIVE mg/dL 10/20 Specimen Type: URINE Comment: If Glucose = >500 and Ketones are positive, please alert the Physician. Ordering Provider: Pablo STEWART Report Released Date/Time: Oct 21, 2023 02:15 PM Reporting Lab: [facility]ITALN [facility]ENTERUSETS [facility] [address] [facility] [address] Performing Lab: [facility]ENTERUSE[address] [address] [facility]USE [facility] URINALYS IS SPECIFIC GRAVITY OF URINE BY REFRACTOME TRY 1.024 1.016 - 1.022 10/20 H Specimen Type: URINE Comment: If Glucose = >500 and Ketones are positive, please alert the Physician. Ordering Provider: Pablo STEWART Report Released Date/Time: Oct 21, 2023 02:15 PM Reporting Lab: [facility]ENTERUSE[address] [address] Performing Lab: [facility]ITALN [facility]ENTERUSE[address] [address] [facility] URINALYS IS PH OF URINE BY TEST STRIP 6.0 5.0 - 9.0 10/20 Specimen Type: URINE Comment: If Glucose = >500 and Ketones are positive, please alert the Physician. Ordering Provider: Pablo STEWART Report Released Date/Time: Oct 21, 2023 02:15 PM Reporting Lab: [facility]ENTERUSE[address] [address] Performing Lab: [facility]WRST[facility]ILTONTRN [facility]ENTERUSE[address] [address] [facility]USE [facility] URINALYS IS UROBILINOG EN [MASS/VOLU ME] IN URINE BY TEST STRIP <2.0mg/d L <2.0 - 2.0 10/20 Specimen Type: URINE Comment: If Glucose = >500 and Ketones are positive, please alert the Physician. Ordering Provider: Pablo STEWART Report Released Date/Time: Oct 21, 2023 02:15 PM Reporting Lab: [facility] [place] [facility] [address] [facility] [address] Performing Lab: [facility] [place] [facility] [address] [facility] [address] [facility] [place] [facility] URINALYS IS LEUKOCYTE ESTERASE [PRESENCE] IN URINE BY TEST STRIP NEGATIVE 10/20 Specimen Type: URINE Comment: If Glucose = >500 and Ketones are positive, please alert the Physician. Ordering Provider: Pablo STEWART Report Released Date/Time: Oct 21, 2023 02:15 PM Reporting Lab: [facility] [place] [facility] [address] [facility] [address] Performing Lab: [facility] [place] [facility] [address] [facility] [address] [facility] [place] [facility] MICROALB UMIN CREATINI NE RATIO PANEL MICROALBUM IN/CREATIN INE [MASS RATIO] IN URINE 6.2 mg/g 0 - 29.9 10/20 Specimen Type: URINE No comment entered. Ordering Provider: Pablo STEWART Report Released Date/Time: Oct 21, 2023 02:15 PM Reporting Lab: [facility] [place] [facility] [address] [facility] [address] Performing Lab: [facility] [place] [facility] [address] [facility] [address] [facility] [place] [facility] MICROALB UMIN CREATINI NE RATIO PANEL MICROALBUM IN [MASS/VOLU ME] IN URINE 1.5 mg/dL 10/20 Specimen Type: URINE No comment entered. Ordering Provider: Pablo STEWART Report Released Date/Time: Oct 21, 2023 02:15 PM Reporting Lab: [facility] [place] [facility] [address] [facility] [address] Performing Lab: [facility] [place] [facility] [address] [facility] [address] [facility] [place] [facility] MICROALB UMIN CREATINI NE RATIO PANEL CREATININE [MASS/VOLU ME] IN URINE 240.98 mg/dL 10/20 Specimen Type: URINE No comment entered. Ordering Provider: Pablo STEWART Report Released Date/Time: Oct 21, 2023 02:15 PM Reporting Lab: [facility] [place] [facility] [address] [facility] [address] Performing Lab: [facility] [place] [facility] [address] [facility] [address] [facility] URIC ACID URATE [MASS/VOLU ME] IN SERUM OR PLASMA 5.4 mg/dL 3.5 - 7.2 10/20 Specimen Type: SERUM No comment entered. Ordering Provider: Pablo STEWART Report Released Date/Time: Oct 21, 2023 02:15 PM Reporting Lab: [facility] [place] [facility] [address] [facility] [address] Performing Lab: [facility] [place] [facility] [address] [facility] [address] [facility] [place] [facility] Vital Signs Combined list of [...] [facility] En[facility] [id number] 10/11 [facility] En[facility] [id number] 10/11 [facility] En[facility] [id number] 10/14 [facility] En[facility] [id number] 10/14 [facility] OFFICE O/P NEW MOD 45 MIN [id number] Diagnos is: ICD-10- CM 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, unspeci MARILUZ Grider 10/20 [facility] [id number] Diagnos is: ICD-10- CM E66.09 Other obesity due to excess calorie s MANEKAS,DI NA L 11/17 [facility] En[facility] [id number] 11/25 [facility] En[facility] [id number] Diagnos is: ICD-10- CM E66.09 Other obesity due to excess calorie s MANEKAS,DI NA L 12/13 [facility] En[facility] [id number] 01/10 [facility] En[facility] [id number] Diagnos is: ICD-10- CM E66.09 Other obesity due to excess calorie s MANEKAS,DI NA L 01/13 [facility] En[facility] [id number] 02/20 [facility] En[facility] [id number] 1. Diagnos is: ICD-10- CM E66.09 Other obesity due to excess calorie s MANEKAS,DI NA L 02/20 [facility] Out[facility] Encounter [id number] SARAH GARCIA ISTOPHER E 02/23 [facility] Encounter [id number] Diagnos is: ICD-10- CM E66.09 Other obesity due to excess calorie s MANEKAS,DI NA L 03/13 [facility] En[facility] [id number] 03/27 [facility] Encounter [id number] Diagnos is: ICD-10- CM E66.09 Other obesity due to excess calorie s MANEKAS,DI NA L 04/14 [facility] En[facility] [id number] 05/02 [facility] En[facility] [id number] 11/08 [facility] Social History Combined list of available smoking, tobacco, and other social 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 Social History Type Response Date Comment Sourc e Tobacco smoking status NHIS [facility] NEVER USED 10/15/2023 [facility]
--- OUTSIDE RECORDS SUMMARY | 2024-12-26 06:51 | XMS_ITS | Clinical Summary ---
Author Organization [facility] Address [address] [facility] [address] [place] [address] Phone Care Team Providers Care Glass Ribbon Machine Operator Name Role Phone Gabby Kelly MD Primary Care Provider [phone] Allergies No known active allergies Medications Multiple Vitamins-[place] als (MULTIVITAMIN ADULT EXTRA C PO) Take [...] Vaccine (Season Ended) 2025 Insurance Medicaid [place] [facility] [place] [facility] Care Teams Glass Ribbon Machine Operator Relationship Specialty Start Date End Date Gabby Kelly MD [facility] [place] [address] PCP - General 07/08/20
--- OUTSIDE RECORDS SUMMARY | 2024-12-26 06:51 | XMS_ITS | Patient Health Record ---
Author Organization [facility] Tavon brittany Lyndsey Address [address] [facility] [place] [address] Care Team Providers Care Business Process Architect Name Role Phone Robin Pierre Primary Care Provider Unavailabl e Black, Stephanie Unavailable [phone] Reason For Referral No Information Medications Medication SIG (Take, Route, Frequency, Duration) Notes Start Date End Date Status oxyCODONE-Acetaminophen 5-32 5 MG Orally Active Fluconazole 150 MG Orally N ot-Taking amLODIPine Besylate 5 MG 1 tablet Orally Once a day Active Soma Active Gabapentin Active buPROPion HCl Active metFORMIN HCl 500 MG 1 tablet with a meal Orally Twice a day Active FLUoxetine HCl 40 MG Orally Once a day Not-Taking Penicillin V Potassium Active hydroCHLOROthiazide 25 MG 1 tablet in th e morning Orally Once a day Active Aspirin Active Allopurinol 300 MG 1 tablet Orally Active Immunizations Vaccine Route Administration Date Status Comme nts Influenza Unknown 03/04/2017 Administered Influenza Unknown 03/28/2018 Administered Social History Tobacco Use: Social History Observation Description Date Details (start date - stop date) Never Smoker NA - NA Tobacco Use/Smoking Question Answer Notes Are you a: nonsmoker Additional Findings: Tobacco Non-User Current no n-smoker Alcohol Screen Question Answer Notes Did you have a drink contain ing alcohol in the past year? Yes How often did you have a dri nk containing alcohol in the past year? Monthly or less (1 point) Points 1 Interpretation Negative Tobacco use other than smoking: Question Answer Notes Are you an other tobacco user? No Problems Problem Type SNOMED Code ICD Code Onset Dates Problem Status W/U Status Risk Notes Problem Acquired hammer toe of right foot (6117301074254735 ) Other hammer toe(s) (acquired), right foot (M20.41) Active confirmed Problem Acquired hammer toe of left foot (0944659023231067 ) Other hammer toe(s) (acquired), left foot (M20.42) Active confirmed Problem Polyneuropathy due to type 2 diabetes mellitus (990522050) Type 2 diabetes mellitus with diabetic polyneuropathy (E11.42) Active confirmed Plan Of Treatment Pending Test Test Name Order Date X ray : Foot, right 3V 09/16/2017 [id number] NAIL, 1-5 09/05/2018 [id number] NAIL, 1-5 03/18/2017 [id number] NAIL, 1-5 09/16/2017 [id number] Plate 09/05/2018 [id number] SKIN LESIONS, 2 TO 4 09/06/19 19 [id number] NAIL(S) 09/05/2018 [id number] NAIL(S) 09/16/2017 [id number] NAIL(S) 03/18/2017 Medical (General) History Medical History History ICD Code Anxiety Back,Hip,and Knee pain Depression Diabetic Gout High blood pressure Numbness Surgical History Surgery Date(Month/Year) Hospitalization History Reason Date(Month/Year) [facility]/17 [facility] [place] [facility] [place] 07/2018
--- OUTSIDE RECORDS SUMMARY | 2024-12-26 06:51 | XMS_ITS | Clinical Summary ---
Author Organization [facility] Address [address] [place] [address] Care Team Providers Care Regional Operations Director Name Role Phone Gabby Kelly Primary Care Provider [phone] Allergies No known active allergies Medications amLODIPine [...] Completed 03/30/2024, , 02/26/2023, Additional history exists Insurance [facility] Care Teams Regional Operations Director Relationship Specialty Start Date End Date Gabby Kelly [facility] ORALIA Denis [phone] PCP - General Internal Medicine 08/15/24
== END 2024-12-26 06:50 | disposition home or self-care (01) ==
LOC: CF 06:49
PROVIDERS: Visit Provider Anesthesiology
DX: M47.816 Spondylosis without myelopathy or radiculopathy, lumbar region (principal)
CPT/HCPCS: 64493; 64494; J2003; J2795; Q9967

== ENCOUNTER 2024-12-26 12:38 | Outpatient (AMB) | payer OTHER, SELFPAY ==
[2024-12-26 12:46] VITALS: BP 115/76; PULSE 95; RESP 20; O2SAT 96; BMI 40.4
--- NOTE | 2024-12-26 12:46 | MHC.OFFVIS ---
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 Allergies No Known Allergies Allergy (Verified 12/26/24 12:46) [facility] Medical History (Updated 10/13/24 @ 13:01 by Gabby Kelly MD) Peripheral neuropathy Obstructive sleep apnea Restless legs syndrome (RLS) Obstructive sleep apnea Chronic pain syndrome Ureteral calculus Fatty liver Gout Kidney stones Depression, major, recurrent Lipid disorder 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, essential FDC (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 Diabetes 1.5, managed as type 1 Complex regional pain syndrome of both lower extremities Diabetic peripheral neuropathy Spondylosis of lumbar region without myelopathy or radiculopathy Surgical History S/P placement of nerve stimulator Hx of lithotripsy Hx of colonoscopy (~11/10/16) Family History Other Mental health disorder Social History Housing: Condominium Alcohol intake: never Patient Tobacco Use Status: Never used Tobacco e-Cigarette/Vaping Use: Never Used Second Hand Smoke Exposure: No service: No Current occupational status: disabled Cognitive needs: No Hearing needs: No Vision needs: Yes Physical Exam Vital Signs: Last Vital Signs Pulse 95 12/26/24 12:46 Resp 20 12/26/24 12:46 BP 115/76 12/26/24 12:46 Pulse Ox 96 12/26/24 12:46 Oxygen Delivery Method Room Air 12/26/24 12:46 BMI result Body Mass Index 40.4 Assessment & Plan Assessment & Plan (1) Spondylosis of lumbar region without myelopathy or radiculopathy: Code(s): M47.816 - Spondylosis without myelopathy or radiculopathy, lumbar region Category: Medical Plan Diagnostic medial branch block L3,L4 dorsal ramus L5 bilateral.? ? ?Informed consent was explained to the patient. All questions were explained and? answered.? The patient was taken inside the operating room where she was positioned prone on the operating table. Time-out was performed delineating correct site, side, the nature of the procedure, patient's allergy, . All operating room staff was participating in OR time-out procedure. ? ? The lower back was prepped with ChloraPrep and draped with sterile towels.? C-arm was brought over the operating field and sq picture of L4-, L5 vertebra and S1 AREA were delineated on the screen.? Advanced scoliotic changes and advanced spondylosis were noted on the images. Point of interest were delineated as confluence of superior articular process of L4 and L5 vertebra bilaterally with corresponding transverse processes as well as confluence of the sacral alae bilaterally with superior articular process of S1.? The projection of the point of interest to the skin were injected with the small amount of local anesthetic lidocaine 2% mixed with ropivacaine 0.5% 1-1 approcimately 1 cc.? After that 22 gauge 3.5 inch spinal needle was driven sequentially to the points of interest in tunnel vision fashion. After needles gently contacted the bone at the point of interests the needle was injected with small amount of the contrast.? The injection of the contrast did not demonstrate any intravascular or intrathecal spread of the contrast.? After that injection of the? ropivacaine 0.5%-1cc was performed at each needle location. ?after that the needles were removed and Bandaids were applied. Orders: Orders FL guidance in treatment room Today M47.816 - Spondylosis without myelopathy or radiculopathy, lumbar region Coding Level of Care Code Procedure Only Diagnoses Spondylosis of lumbar region without myelopathy or radiculopathy M47.816
[2024-12-26 13:19] VITALS: BP 113/69; PULSE 84; RESP 18; O2SAT 96
== END 2024-12-26 14:02 | disposition home or self-care (01) ==
LOC: HO.PMCPRC 12:38
PROVIDERS: PCP Internal Medicine; Visit Provider Anesthesiology
DX: M47.816 Spondylosis without myelopathy or radiculopathy, lumbar region (principal)
CPT/HCPCS: 64493; 64494

== ENCOUNTER 2024-12-28 11:06 | Outpatient (AMB) | payer OTHER, SELFPAY ==
--- OUTSIDE RECORDS SUMMARY | 2024-12-26 01:50 | XMS_ITS | Continuity of Care Document ---
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 Status Comments Source INFLUENZA, UNSPECIFIED FORMULATION 2022 88 complet ed HISTORICA L INFORMATI ON - FROM OTHER REGISTRY, [facility] [place] COVID-19 (MODERNA), MRNA, LNP-S, PF, 100 MCG/0.5ML DOSE OR 50 MCG/0.25ML DOSE 2020 207 complet ed Booster for Series, HISTORICA L INFORMATI ON - FROM OTHER PROVIDER, [facility] [place] COVID-19 (PFIZER), MRNA, LNP-S, PF, 30 MCG/0.3 ML DOSE 2 2020 208 complet ed HISTORICA L INFORMATI ON - [facility] OTHER PROVID[facility], [facility] [place] COVID-19 (PFIZER), MRNA, LNP-S, PF, 30 MCG/0.3 ML DOSE 1 2020 208 complet ed HISTORICA L INFORMATI ON - [facility] Results Combined list of recent chemistry, [...] Oct 21, 2023 02:15 PM Reporting Lab: [address] [address] Performing Lab: [address] [address] [facility] HEPATITI S B SURFACE ANTIBODY (HBsAb)- WH HEPATITIS B VIRUS SURFACE AB [PRESENCE] IN SERUM BY IMMUNOASSA Y Non Reactive 10/20 Specimen Type: SERUM No comment entered. Ordering Provider: Pablo STEWART Report Released Date/Time: Oct 21, 2023 02:15 PM Reporting Lab: [address] [address] Performing Lab: [facility] [address] [facility] [address] [facility] HEPATITI S C ANTIBODY (HCV)-AR C HEPATITIS C VIRUS AB [PRESENCE] IN SERUM NON-REAC TIVE 10/20 Specimen Type: SERUM Comment: Hep C Ab: No HCV antibody detected. If recent infection is suspected or other evidence suggests HCV infection, consider HCV nucleic acid testing Ordering Provider: Pablo STEWART Report Released Date/Time: Oct 21, 2023 02:15 PM Reporting Lab: [facility] [address] [facility] [address] Performing Lab: [facility] [address] [address] [facility] BASIC METABOLI C PANEL (fasting ) UREA NITROGEN [MASS/VOLU ME] IN SERUM OR PLASMA 28 mg/dL 7 - 25 10/20 H Specimen Type: SERUM No comment entered. Ordering Provider: Pablo STEWART Report Released Date/Time: Oct 21, 2023 02:15 PM Reporting Lab: [facility] [address] [address] Performing Lab: [facility] [address] [facility] [address] [facility] BASIC METABOLI C PANEL (fasting ) GLUCOSE [MASS/VOLU ME] IN SERUM OR PLASMA 147 mg/dL 65 - 100 10/20 H Specimen Type: SERUM No comment entered. Ordering Provider: Pablo STEWART Report Released Date/Time: Oct 21, 2023 02:15 PM Reporting Lab: [facility] [address] [address] Performing Lab: [facility] [address] [address] [facility] BASIC METABOLI C PANEL (fasting ) SODIUM [MOLES/VOL UME] IN SERUM OR PLASMA 139 mmol/L 135 - 145 10/20 Specimen Type: SERUM No comment entered. Ordering Provider: Pablo STEWART Report Released Date/Time: Oct 21, 2023 02:15 PM Reporting Lab: [facility] [place] [facility] [address] [facility] [address] Performing Lab: [facility] [place] [address] [address] [facility] [place] [facility] BASIC METABOLI C PANEL (fasting ) POTASSIUM [MOLES/VOL UME] IN SERUM OR PLASMA 4.4 mmol/L 3.5 - 5.0 10/20 Specimen Type: SERUM No comment entered. Ordering Provider: Pablo STEWART Report Released Date/Time: Oct 21, 2023 02:15 PM Reporting Lab: [facility] [place] [address] [address] Performing Lab: [facility] [place] [address] [address] [facility] [place] [facility] BASIC METABOLI C PANEL (fasting ) CHLORIDE [MOLES/VOL UME] IN SERUM OR PLASMA 103 mmol/L 100 - 110 10/20 Specimen Type: SERUM No comment entered. Ordering Provider: Pablo STEWART Report Released Date/Time: Oct 21, 2023 02:15 PM Reporting Lab: [facility] [place] [address] [address] Performing Lab: [facility] [place] [address] [address] [facility] [place] [facility] BASIC METABOLI C PANEL (fasting ) CARBON DIOXIDE, TOTAL [MOLES/VOL UME] IN SERUM OR PLASMA 27 meq/L 20 - 30 10/20 Specimen Type: SERUM No comment entered. Ordering Provider: Pablo STEWART Report Released Date/Time: Oct 21, 2023 02:15 PM Reporting Lab: [facility] [place] [address] [address] Performing Lab: [facility] [place] [address] [place] [address] [facility] [place] [facility] BASIC METABOLI C PANEL (fasting ) CREATININE [MASS/VOLU ME] IN SERUM OR PLASMA 1.74 mg/dL 0.50 - 1.40 10/20 H Specimen Type: SERUM No comment entered. Ordering Provider: Pablo STEWART Report Released Date/Time: Oct 21, 2023 02:15 PM Reporting Lab: [facility] [place] [address] [address] Performing Lab: [facility] [place] [address] [address] [facility] [place] [facility] BASIC METABOLI C PANEL (fasting ) GLOMERULAR FILTRATION RATE/1.73 SQ M.PREDICTE D [VOLUME RATE/AREA] IN SERUM, PLASMA OR BLOOD BY CREATININE -BASED FORMULA (CKD-EPI 2020) 45 mL/min 60 10/20 L Specimen Type: SERUM No comment entered. Ordering Provider: Pablo STEWART Report Released Date/Time: Oct 21, 2023 02:15 PM Reporting Lab: [facility] [place] [address] [address] Performing Lab: [facility] [place] [place] [address] [address] [facility] [place] [facility] LIVER FUNCTION PROTEIN [MASS/VOLU ME] IN SERUM OR PLASMA 6.7 g/dL 6.0 - 8.3 10/20 Specimen Type: SERUM No comment entered. Ordering Provider: Pablo STEWART Report Released Date/Time: Oct 21, 2023 02:15 PM Reporting Lab: [facility] [place] [address] [address] Performing Lab: [facility] [place] [address] [address] [facility] [place] [facility] LIVER FUNCTION ALBUMIN [MASS/VOLU ME] IN SERUM OR PLASMA 4.1 g/dL 3.5 - 5.0 10/20 Specimen Type: SERUM No comment entered. Ordering Provider: Pablo STEWART Report Released Date/Time: Oct 21, 2023 02:15 PM Reporting Lab: [facility] [place] [facility] [address] [facility] [address] Performing Lab: [facility] [place] [facility] [address] [facility] [address] [facility] [place] [facility] LIVER FUNCTION ALKALINE PHOSPHATAS E [ENZYMATIC ACTIVITY/V OLUME] IN SERUM OR PLASMA 84 U/L 40 - 150 10/20 Specimen Type: SERUM No comment entered. Ordering Provider: Pablo STEWART Report Released Date/Time: Oct 21, 2023 02:15 PM Reporting Lab: [facility] [place] [facility] [address] [facility] [address] Performing Lab: [facility] [place] [facility] [address] [facility] [address] [facility] [place] [facility] LIVER FUNCTION ASPARTATE AMINOTRANS FERASE [ENZYMATIC ACTIVITY/V OLUME] IN SERUM OR PLASMA 19 U/L 5 - 34 10/20 Specimen Type: SERUM No comment entered. Ordering Provider: Pablo STEWART Report Released Date/Time: Oct 21, 2023 02:15 PM Reporting Lab: [facility] [place] [facility] [address] [facility] [address] Performing Lab: [facility] [place] [facility] [address] [facility] [address] [facility] [place] [facility] LIVER FUNCTION ALANINE AMINOTRANS FERASE [ENZYMATIC ACTIVITY/V OLUME] IN SERUM OR PLASMA 28 U/L 10/20 Specimen Type: SERUM No comment entered. Ordering Provider: Pablo STEWART Report Released Date/Time: Oct 21, 2023 02:15 PM Reporting Lab: [facility] [place] [facility] [address] [facility] [address] Performing Lab: [facility] [place] [facility] [address] [facility] [address] [facility] [place] [facility] LIVER FUNCTION BILIRUBIN. TOTAL [MASS/VOLU ME] IN SERUM OR PLASMA 0.6 mg/dL 0.2 - 1.2 10/20 Specimen Type: SERUM No comment entered. Ordering Provider: Pablo STEWART Report Released Date/Time: Oct 21, 2023 02:15 PM Reporting Lab: [facility] [place] [address] [address] Performing Lab: [facility] [place] [address] [address] [facility] [place] [facility] LIPID PANEL FASTING CHOLESTERO L [MASS/VOLU ME] IN SERUM OR PLASMA 84 mg/dL 10/20 Specimen Type: SERUM No comment entered. Ordering Provider: Pablo STEWART Report Released Date/Time: Oct 21, 2023 02:15 PM Reporting Lab: [facility] [place] [address] [address] Performing Lab: [facility] [place] [address] [address] [facility] [place] [facility] LIPID PANEL FASTING TRIGLYCERI DE [MASS/VOLU ME] IN SERUM OR PLASMA 87 mg/dL 0 - 150 10/20 Specimen Type: SERUM No comment entered. Ordering Provider: Pablo STEWART Report Released Date/Time: Oct 21, 2023 02:15 PM Reporting Lab: [facility] [place] [address] [address] Performing Lab: [facility] [place] [address] [address] [facility] [place] [facility] LIPID PANEL FASTING CHOLESTERO L IN LDL [MASS/VOLU ME] IN SERUM OR PLASMA BY CALCULATIO N 30 mg/dL 0 - 129 10/20 Specimen Type: SERUM No comment entered. Ordering Provider: Pablo STEWART Report Released Date/Time: Oct 21, 2023 02:15 PM Reporting Lab: [facility] [place] [address] [address] Performing Lab: [facility] [address] [facility] [address] [facility] LIPID PANEL FASTING CHOLESTERO L.TOTAL/CH OLESTEROL IN HDL [MASS RATIO] IN SERUM OR PLASMA 2.3 10/20 Specimen Type: SERUM No comment entered. Ordering Provider: Pablo STEWART Report Released Date/Time: Oct 21, 2023 02:15 PM Reporting Lab: [facility] TRN [facility] [address] [facility] [address] Performing Lab: [facility]EN[facility] [address] [facility] [address] [facility] LIPID PANEL FASTING CHOLESTERO L IN HDL [MASS/VOLU ME] IN SERUM OR PLASMA 37 mg/dL 40 - 60 10/20 L Specimen Type: SERUM No comment entered. Ordering Provider: Pablo STEWART Report Released Date/Time: Oct 21, 2023 02:15 PM Reporting Lab: [facility]N [facility] [address] [facility] [address] Performing Lab: [facility] TRN [facility] CHILDRENUSE[address] [address] [facility] HEMOGLOB IN A1C PANEL HEMOGLOBIN A1C/HEMOGL [...] Oct 21, 2023 02:15 PM Reporting Lab: [address] [address] Performing Lab: [address] [address] [facility] [place] URINALYS IS COLOR OF URINE Yellow 10/20 Specimen Type: URINE Comment: If Glucose = >500 and Ketones are positive, please alert the Physician. Ordering Provider: Pablo STEWART Report Released Date/Time: Oct 21, 2023 02:15 PM Reporting Lab: [facility] [place] [place] [facility] [address] [facility] [address] Performing Lab: [facility] [facility] [address] [facility] [address] [facility] [place] [facility] URINALYS IS APPEARANCE OF URINE Clear 10/20 Specimen Type: URINE Comment: If Glucose = >500 and Ketones are positive, please alert the Physician. Ordering Provider: Pablo STEWART Report Released Date/Time: Oct 21, 2023 02:15 PM Reporting Lab: [facility] [place] [address] [address] Performing Lab: [facility] [place] [facility] [address] [facility] [address] [facility] [place] [facility] URINALYS IS GLUCOSE [MASS/VOLU ME] IN URINE NEGATIVE mg/dL 10/20 Specimen Type: URINE Comment: If Glucose = >500 and Ketones are positive, please alert the Physician. Ordering Provider: Pablo STEWART Report Released Date/Time: Oct 21, 2023 02:15 PM Reporting Lab: [facility] [place] [facility] [address] [facility] [address] Performing Lab: [facility] [place] [facility] [address] [facility] [address] [facility] [place] [facility] URINALYS IS KETONES [MASS/VOLU ME] IN URINE BY TEST STRIP NEGATIVE mg/dL 10/20 Specimen Type: URINE Comment: If Glucose = >500 and Ketones are positive, please alert the Physician. Ordering Provider: Pablo STEWART Report Released Date/Time: Oct 21, 2023 02:15 PM Reporting Lab: [facility] [place] [facility] [address] [facility] [address] Performing Lab: [facility] [place] [facility] [address] [facility] [address] [facility] [place] [facility] URINALYS IS ERYTHROCYT ES [PRESENCE] IN URINE SEDIMENT BY LIGHT MICROSCOPY NEGATIVE mg/dL 10/20 Specimen Type: URINE Comment: If Glucose = >500 and Ketones are positive, please alert the Physician. Ordering Provider: Pablo STEWART Report Released Date/Time: Oct 21, 2023 02:15 PM Reporting Lab: [facility] [place] [facility] [address] [facility] [address] Performing Lab: [facility] [place] [facility] [address] [facility] [address] [facility] [place] [facility] URINALYS IS PROTEIN [MASS/VOLU ME] IN URINE BY TEST STRIP 20 mg/dL 10/20 Specimen Type: URINE Comment: If Glucose = >500 and Ketones are positive, please alert the Physician. Ordering Provider: Pablo STEWART Report Released Date/Time: Oct 21, 2023 02:15 PM Reporting Lab: [facility] [place] [facility] [address] [facility] [address] Performing Lab: [facility] [facility] [address] [facility] [address] [facility] [place] [facility] URINALYS IS NITRITE [PRESENCE] IN URINE NEGATIVE mg/dL 10/20 Specimen Type: URINE Comment: If Glucose = >500 and Ketones are positive, please alert the Physician. Ordering Provider: Pablo STEWART Report Released Date/Time: Oct 21, 2023 02:15 PM Reporting Lab: [facility] [place] [facility] [address] [facility] [address] Performing Lab: [facility] [facility] [address] [facility] [address] [facility] [place] [facility] URINALYS IS BILIRUBIN. TOTAL [PRESENCE] IN URINE NEGATIVE mg/dL 10/20 Specimen Type: URINE Comment: If Glucose = >500 and Ketones are positive, please alert the Physician. Ordering Provider: Pablo STEWART Report Released Date/Time: Oct 21, 2023 02:15 PM Reporting Lab: [facility]ENUS[facility] [address] [facility] [address] Performing Lab: [facility] CHILDRENUSE[address] [address] [facility]ENUSE [facility] URINALYS IS SPECIFIC GRAVITY OF URINE BY REFRACTOME TRY 1.024 1.016 - 1.022 10/20 H Specimen Type: URINE Comment: If Glucose = >500 and Ketones are positive, please alert the Physician. Ordering Provider: Pablo STEWART Report Released Date/Time: Oct 21, 2023 02:15 PM Reporting Lab: [facility]ILDRENUSE[address] [address] Performing Lab: [facility] CHILDRENUSE[address] [address] [facility]ITAL[facility] URINALYS IS PH OF URINE BY TEST STRIP 6.0 5.0 - 9.0 10/20 Specimen Type: URINE Comment: If Glucose = >500 and Ketones are positive, please alert the Physician. Ordering Provider: Pablo STEWART Report Released Date/Time: Oct 21, 2023 02:15 PM Reporting Lab: [facility]ILDRENUSE[address] [address] Performing Lab: [facility]ERR[facility]ENTERTRN [facility] CHILDRENUSE[address] [address] [facility]ILDRENUSE [facility] URINALYS IS UROBILINOG EN [MASS/VOLU ME] IN URINE BY TEST STRIP <2.0mg/d L <2.0 - 2.0 10/20 Specimen Type: URINE Comment: If Glucose = >500 and Ketones are positive, please alert the Physician. Ordering Provider: Pablo STEWART Report Released Date/Time: Oct 21, 2023 02:15 PM Reporting Lab: [facility] [place] [facility] [address] [facility] [address] Performing Lab: [facility] [place] [facility] [address] [facility] [address] [facility] [place] [facility] URINALYS IS LEUKOCYTE ESTERASE [PRESENCE] IN URINE BY TEST STRIP NEGATIVE 10/20 Specimen Type: URINE Comment: If Glucose = >500 and Ketones are positive, please alert the Physician. Ordering Provider: Pablo STEWART Report Released Date/Time: Oct 21, 2023 02:15 PM Reporting Lab: [facility] [place] [facility] [address] [facility] [address] Performing Lab: [facility] [place] [facility] [address] [facility] [address] [facility] [place] [facility] MICROALB UMIN CREATINI NE RATIO PANEL MICROALBUM IN/CREATIN INE [MASS RATIO] IN URINE 6.2 mg/g 0 - 29.9 10/20 Specimen Type: URINE No comment entered. Ordering Provider: Pablo STEWART Report Released Date/Time: Oct 21, 2023 02:15 PM Reporting Lab: [facility] [place] [facility] [address] [facility] [address] Performing Lab: [facility] [place] [facility] [address] [facility] [address] [facility] [place] [facility] MICROALB UMIN CREATINI NE RATIO PANEL MICROALBUM IN [MASS/VOLU ME] IN URINE 1.5 mg/dL 10/20 Specimen Type: URINE No comment entered. Ordering Provider: Pablo STEWART Report Released Date/Time: Oct 21, 2023 02:15 PM Reporting Lab: [facility] [place] [facility] [address] [facility] [address] Performing Lab: [facility] [place] [facility] [address] [facility] [address] [facility] [place] [facility] MICROALB UMIN CREATINI NE RATIO PANEL CREATININE [MASS/VOLU ME] IN URINE 240.98 mg/dL 10/20 Specimen Type: URINE No comment entered. Ordering Provider: Pablo STEWART Report Released Date/Time: Oct 21, 2023 02:15 PM Reporting Lab: [facility] [place] [facility] [address] [facility] [address] Performing Lab: [facility] [place] [facility] [address] [facility] [address] [facility] URIC ACID URATE [MASS/VOLU ME] IN SERUM OR PLASMA 5.4 mg/dL 3.5 - 7.2 10/20 Specimen Type: SERUM No comment entered. Ordering Provider: Pablo STEWART Report Released Date/Time: Oct 21, 2023 02:15 PM Reporting Lab: [facility] [place] [facility] [address] [facility] [address] Performing Lab: [facility] [place] [facility] [address] [facility] [address] [facility] [place] [facility] Vital Signs Combined list of [...] [facility] [place] Out[facility] En[facility] [id number] 10/11 [facility] En[facility] [id number] 10/11 [facility] [place] En[facility] [id number] 10/14 [facility] [place] En[facility] [id number] 10/14 [facility] OFFICE O/P NEW MOD 45 MIN [id number] Diagnos is: ICD-10- CM 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, unspeci MARILUZ Grider 10/20 [facility] [id number] Diagnos is: ICD-10- CM E66.09 Other obesity due to excess calorie s MANEKAS,DI NA L 11/17 [facility] En[facility] [id number] 11/25 [facility] [place] [id number] Diagnos is: ICD-10- CM E66.09 Other obesity due to excess calorie s MANEKAS,DI NA L 12/13 [facility] En[facility] [id number] 01/10 [facility] En[facility] [id number] Diagnos is: ICD-10- CM E66.09 Other obesity due to excess calorie s MANEKAS,DI NA L 01/13 [facility] En[facility] [id number] 02/20 [facility] En[facility] [id number] 1. Diagnos is: ICD-10- CM E66.09 Other obesity due to excess calorie s MANEKAS,DI NA L 02/20 [facility] En[facility] [id number] SARAH GARCIA ISTOPHER E 02/23 [facility] En[facility] [id number] Diagnos is: ICD-10- CM E66.09 Other obesity due to excess calorie s MANEKAS,DI NA L 03/13 [facility] En[facility] [id number] 03/27 [facility] En[facility] [id number] Diagnos is: ICD-10- CM E66.09 Other obesity due to excess calorie s MANEKAS,DI NA L 04/14 [facility] [id number] 05/02 [facility] En[facility] [id number] 11/08 [facility] Social History Combined list of available smoking, tobacco, and other social 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 Social History Type Response Date Comment Sourc e Tobacco smoking status NHIS [facility] NEVER USED 10/15/2023 [facility]
--- NOTE | 2024-12-28 11:10 | MHC.OFFVIS ---
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 Unfortunately if pain relief was felt by the patient it was very minimal. Before the procedure he reported his pain 3/10. After the procedure his pain was 2/10 to 3/10. It went to 6/10 at the 6 hour after the procedure. And although the patient reported that he performed most painful maneuvers which usually aggravate his pain I can not consider this much of the pain relief as the indication on pain generators. I decided to schedule him for diagnostic sacroiliac joint injection bilateral. He requests me to perform this procedure late at night because it this is when his pain is most severe. The latest I can schedule him is 330 in the afternoon. The patient agreed to go for the procedure. He also reported that he tried to take his baclofen increasing the dose 3 fold. He reports some improvement on this dose. I will prescribe him 20 mg baclofen 4 times a day so he can not get some alleviation of his pain. Prior:. He reports shooting pain with attempt to flex forward and he reports pain aggravation with flexing backwards. he reports most aggravating pain with standing but not with walking. He went for MRI and results of the MRI dictated as below. I would like to perform bilateral medial branch block on this patient. If this injection will not result in good pain relief I will consider repeating diagnostic bilateral sacroiliac joint injection which in the past gave patient 3 weeks of pain relief. Only after those injections will be failing the relief of the pain of the patient is I will consider transforaminal epidural steroid injection for this patient. Prior: Results of the trial of SCS Merlyro: He reports excellent pain relief specially in bilateral lower extremities. He reports that he is able to sleep very well with device on he reports minor pain in the feet but it does not prevent him to take good sleep. He also reports the device helps for the lower back pain improved his mobility activities of daily living and improve his social interactions. He is very much interested in implantation of the device on permanent basis. He is suffering from spondylosis of the lumbar spine disc degeneration lumbar spine but his main problem is diabetic polyneuropathy of bilateral lower extremities. SI joint injection results 3 weeks of pain relieve on diagnostic injection 100%.? The pain under right scapula is another problem for this patient.? I told him that this pain can be treated potentially as a myofascial pain syndrome and I can perform once he is here in my office a trigger point injection into this area hopefully it will give him good pain relief.? ?He is under care of urologist and urologist thinks that this pain might be related to his kidney stones.? However the larger stone he has? is on the left side and that he experiences pain only on the right.? He is going for shockwave lithotripsy with this urologist in the future to destroyed the stones.? As of his polyneuropathy it stems out from diabetes.? His hemoglobin A1c is equal to 8. it is certain improvement from number in around 10. however unfortunately it is not good enough to reduce polyneuropathy.? He reports significant bilateral pain as burning sensations pins and needles in bilateral feet in the is distribution of the low socks.? We discussed the situation with peripheral neuropathy.? Explained to him that unless he would decrease his hemoglobin A1c below 6 I would not expect his pain getting better. ?He is suffering from axial lower back pain and peripheral diabetic polyneuropathy.? ? He was complaining on the pain in the lateral hip area, he was sent for hip x-ray which demonstrated almost no pathology normal alignment no cartilage loss. He went for consult with Dr. Rodrigez a neurosurgeon.? There were no indications to do any surgical interventions by Dr. Rodrigez. 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 Diabetes 1.5, managed as type 1 Complex regional pain syndrome of both lower extremities Diabetic peripheral neuropathy Spondylosis of lumbar region without myelopathy or radiculopathy Surgical History S/P placement of nerve stimulator Hx of lithotripsy Hx of colonoscopy (~11/10/16) Family History Other Mental health disorder Social History [facility] Alcohol intake: never Patient Tobacco Use Status: Never used Tobacco e-Cigarette/Vaping Use: Never Used Second Hand Smoke Exposure: No service: No Current occupational status: disabled Cognitive needs: No Hearing needs: No Vision needs: Yes Review of Systems Const All systems reviewed & are unremarkable except as noted in HPI and below Physical Exam Vital Signs: Last Vital Signs Pulse 97 12/28/24 11:11 Resp 18 12/28/24 11:11 BP 117/72 12/28/24 11:11 Pulse Ox 98 12/28/24 11:11 Oxygen Delivery Method Room Air 12/28/24 11:11 BMI result Body Mass Index 39.6 Const General: cooperative and no acute distress Nutritional Appearance: obese Limitations: no limitations HEENT Head: Yes normocephalic Ears: hearing grossly normal bilaterally Neck Neck: Yes full ROM and Yes supple Resp Effort & Inspection: normal respiratory effort and able to speak in complete sentences Back/Spine/Pelvis Other: Darryl test is positive bilaterally. Pelvic compression test is positive bilaterally. Pelvic distraction test is positive bilaterally. Stinchfield test is positive bilaterally. Psych Appearance: grossly normal Mental Status: mental status grossly normal Speech and movement: Normal speech and movement present Affect: normal affect Attitude: cooperative Thought process: Normal thought process present Thought content: Normal thought content present Insight: Good insight present (Psych) Judgement: Good judgement present (Psych) Results Reviewed Results Reviewed: EXAMINATION: MR LUMBAR SPINE WITHOUT CONTRAST CLINICAL INFORMATION: Spondylosis without adenopathy or radiculopathy. COMPARISON: April 04, 2020. TECHNIQUE: MRI of the lumbar spine was obtained using routine sequences without contrast. FINDINGS: Last rib-bearing vertebra labeled T12. Paramagnetic field distortion secondary to metallic neurostimulator device in the deep fat planes of the soft tissues posterior lumbar region from L2 to L3 with electrodes entering at T12-L1 towards the thoracic spine. Mild subtle bone marrow STIR signal in the endplates of L5-S1. And the posterior elements/posterior spinous processes of L1. Multilevel marginal osteophyte formation and disc desiccation throughout the lower thoracic spine and the lumbar spine. There is a grade 1 retrolisthesis L5-S1. Focal hyperintense T2 signal in the posterior intervertebral disc of L4 and L5 likely related to annular fissure. Conus medullaris ends at inferior endplate of L1 with normal signal. T12-L1: Paramagnetic field distortion. No gross disc herniation or neuroforamina stenosis. L1-2: No disc herniation. No neuroforamina stenosis. L2-3: Broad-based disc bulging. Facet joint hypertrophy. No compression upon neural elements. L3-4: Broad-based disc bulging. Facet joint hypertrophy. No compression upon neural elements. L4-5: Central broad-based disc herniation resulting in ventral indentation to the thecal sac and abutting the L5 nerve roots on the lateral recesses. Bilateral facet joint hypertrophy. Bilateral neuroforamina narrowing without compressing the exiting nerve root. L5-S1: Central/right subarticular and foraminal broad-based disc herniation abutting the right S1 nerve root and the right L5 nerve root. Right neuroforamina stenosis. Left neuroforamina narrowing on a degenerative basis. No prevertebral compartment hematoma, mass or fluid collection. IMPRESSION: Multilevel thoracolumbar spondylosis involving mostly the L4-5 and the L5-S1 levels. . Central/right subarticular and foraminal broad-based disc herniation L5-S1 abutting the right S1 likely compressing the right L5 nerve roots. Assessment & Plan Assessment & Plan (1) Spinal cord stimulator status: Code(s): Z96.89 - Presence of other specified functional implants Category: Medical (2) Hip osteoarthritis: Code(s): M16.9 - Osteoarthritis of hip, unspecified (3) Spondylosis of lumbar region without myelopathy or radiculopathy: Code(s): M47.816 - Spondylosis without myelopathy or radiculopathy, lumbar region Category: Medical (4) Diabetic peripheral neuropathy: Code(s): E11.42 - Type 2 diabetes mellitus with diabetic polyneuropathy Category: Medical (5) Complex regional pain syndrome of both lower extremities: Code(s): G90.523 - Complex regional pain syndrome I of lower limb, bilateral Category: Medical Qualifiers: Complex regional pain syndrome type: type I Qualified Code(s): G90.523 - Complex regional pain syndrome I of lower limb, bilateral (6) Sacroiliac joint pain: Code(s): M53.3 - Sacrococcygeal disorders, not elsewhere classified Category: Medical (7) Sacroiliitis: Code(s): M46.1 - Sacroiliitis, not elsewhere classified Category: Medical (8) 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 The patient in the past also had diagnostic sacroiliac joint injection which resulted in 3 weeks of pain relief. Unfortunately diagnostic medial branch block L3-L4 does ramus L5 resulted in minimal improvement. I will schedule him for bilateral diagnostic SI joint injection. He insists scheduling of the procedure later on the day when his pain is most severe. I told him that I can schedule this procedure the latest time at 15:30. Patient agreed. On the physical exam there is a reason to believe that he might have sacroiliitis as well as spondylosis of the lumbar spine. I also would like to increase the dose of the baclofen I prescribed him in the past making it 20 mg 4 times a day. Medications: New baclofen 20 mg PO QID 120 tabs 8RF 30 days Discontinued baclofen Discontinued Reason: Doctor's Order 10 mg PO TID 30 days 90 tabs 6RF Coding Level of Care Code Est Pt Level 3 (21462) Diagnoses Spinal cord stimulator status Z96.89 Hip osteoarthritis M16.9 Spondylosis of lumbar region without myelopathy or radiculopathy M47.816 Diabetic peripheral neuropathy E11.42 Complex regional pain syndrome type 1 of both lower extremities G90.523 Complex regional pain syndrome type: type I Sacroiliac joint pain M53.3 Sacroiliitis M46.1 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
[2024-12-28 11:11] VITALS: BP 117/72; PULSE 97; RESP 18; O2SAT 98; BMI 39.6
--- OUTSIDE RECORDS SUMMARY | 2024-12-28 11:58 | XMS_ITS | Patient Health Record ---
Author Organization [facility] Tavon brittany Lyndsey Address [address] [facility] [place] [address] Care Team Providers Care Brick Mason Name Role Phone Robin Pierre Primary Care Provider Unavailabl e Black, Stephanie Unavailable [phone] Reason For Referral No Information Medications Medication [...] Problem Acquired hammer toe of right foot ([id number] ) Other hammer toe(s) (acquired), right foot (M20.41) Active confirmed Problem Acquired hammer toe of left foot (5009084657847659 ) Other hammer toe(s) (acquired), left foot (M20.42) Active confirmed Problem Polyneuropathy due to type 2 diabetes mellitus (401838752) Type 2 diabetes mellitus with diabetic polyneuropathy (E11.42) Active confirmed Plan Of Treatment Pending Test Test Name Order Date X ray : Foot, right 3V 09/16/2017 [id number] NAIL, 1-5 09/05/2018 [id number] NAIL, 1-5 03/18/2017 [id number] NAIL, 1-5 09/16/2017 [id number] Plate 09/05/2018 [id number] SKIN LESIONS, 2 TO 4 09/06/19 19 [id number] NAIL(S) 09/05/2018 [id number] NAIL(S) 09/16/2017 [id number] NAIL(S) 03/18/2017 Medical (General) History Medical History History ICD Code Anxiety Back,Hip,and Knee pain Depression Diabetic Gout High blood pressure Numbness Surgical History Surgery Date(Month/Year) Hospitalization History Reason Date(Month/Year) [facility] [place]
--- OUTSIDE RECORDS SUMMARY | 2024-12-28 11:58 | XMS_ITS | Clinical Summary ---
Author Organization [facility] Address [address] [facility] [address] [place] [address] Phone Care Team Providers Care Metallurgical Tester Name Role Phone Gabby Kelly MD Primary Care Provider [phone] Allergies No known active allergies Medications Multiple Vitamins-[place] als (MULTIVITAMIN ADULT EXTRA C PO) Take [...] Vaccine (Season Ended) 2025 [place] Medicaid [place] [facility] [place] [facility] Care Teams Metallurgical Tester Relationship Specialty Start Date End Date Gabby Kelly MD [place] [address] PCP - General 07/08/20
--- OUTSIDE RECORDS SUMMARY | 2024-12-28 11:58 | XMS_ITS | Clinical Summary ---
Author Organization [facility] Address [address] [place] [address] Care Team Providers Care Inserting Operator Name Role Phone Gabby Kelly Primary Care Provider [phone] Allergies No known active allergies Medications amLODIPine [...] [employer] Татьяна ual Screening 06/28/2024 Influenza Vaccine (#1) 2025 , 04/08/2023, 02/26/2023, Additional history exists DTaP,Tdap,and Td Vaccines (3 - Td or Tdap) 01/31/2030 02/01/2020, 09/09/2018 RSV Vaccine (60+ years old a nd patients) (1 - 1-dose 75+ series) 2040 COVID-19 Vaccine Completed 03/30/2024, 05/2023, 03/09/2022, Additional history exists Insurance [facility] Care Teams Inserting Operator Relationship Specialty Start Date End Date Robin, Gabby [facility] ORALIA Wallace [phone] PCP - General Internal Medicine 08/15/24
== END 2024-12-28 11:44 | disposition home or self-care (01) ==
LOC: HO.PMC 11:06
PROVIDERS: PCP Internal Medicine; Visit Provider Anesthesiology
DX: Z96.89 Presence of other specified functional implants (principal); M16.9 Osteoarthritis of hip, unspecified; M47.816 Spondylosis without myelopathy or radiculopathy, lumbar region; E11.42 Type 2 diabetes mellitus with diabetic polyneuropathy; G90.523 Complex regional pain syndrome I of lower limb, bilateral; M53.3 Sacrococcygeal disorders, not elsewhere classified; M46.1 Sacroiliitis, not elsewhere classified; M47.815 Spondylosis without myelopathy or radiculopathy, thoracolumbar region; M51.369 Other intervertebral disc degeneration, lumbar region without mention of lumbar back pain or lower extremity pain
CPT/HCPCS: 99213

== ENCOUNTER 2025-01-12 11:27 | Outpatient (REF) | payer OTHER, SELFPAY ==
--- OUTSIDE RECORDS SUMMARY | 2024-12-26 01:50 | XMS_ITS | Continuity of Care Document ---
Author Name [facility] Organization [facility] Care Team Providers Care Clam Sorter Name Role Phone [facility] Unavailable Unavailable Problems Combined list of problems [...] [facility] Exposure to potentially hazardous substance ([facility] [id number] ) Active Condition Oct 22, 2023 Entered [...] Site Reaction Lot Number CVX Code Drug Director Clinical Applications Status Comments Source INFLUENZA, UNSPECIFIED FORMULATION 2022 88 complet ed HISTORICA L INFORMATI ON - FROM OTHER REGISTRY, [facility] [place] COVID-19 (MODERNA), MRNA, LNP-S, PF, 100 MCG/0.5ML DOSE OR 50 MCG/0.25ML DOSE 2020 207 complet ed Booster for Series, HISTORICA L INFORMATI ON - FROM OTHER PROVIDER, [facility] [place] COVID-19 (PFIZER), MRNA, LNP-S, PF, 30 MCG/0.3 ML DOSE 2 2020 208 complet ed HISTORICA L INFORMATI ON - FROM OTHER PROVIDER, [facility] [place] COVID-19 (PFIZER), MRNA, LNP-S, PF, 30 MCG/0.3 ML DOSE 1 2020 208 complet ed HISTORICA L INFORMATI ON - [facility] Results Combined list of recent chemistry, [...] Oct 21, 2023 02:15 PM Reporting Lab: [address] [address] Performing Lab: [address] [address] [facility] HEPATITI S B SURFACE ANTIBODY (HBsAb)- WH HEPATITIS B VIRUS SURFACE AB [PRESENCE] IN SERUM BY IMMUNOASSA Y Non Reactive 10/20 Specimen Type: SERUM No comment entered. Ordering Provider: Pablo STEWART Report Released Date/Time: Oct 21, 2023 02:15 PM Reporting Lab: [address] [address] Performing Lab: [facility] [address] [facility] [address] [facility] HEPATITI S C ANTIBODY (HCV)-AR C HEPATITIS C VIRUS AB [PRESENCE] IN SERUM NON-REAC TIVE 10/20 Specimen Type: SERUM Comment: Hep C Ab: No HCV antibody detected. If recent infection is suspected or other evidence suggests HCV infection, consider HCV nucleic acid testing Ordering Provider: Pablo STEWART Report Released Date/Time: Oct 21, 2023 02:15 PM Reporting Lab: [facility] [address] [facility] [address] Performing Lab: [facility] [address] [address] [facility] BASIC METABOLI C PANEL (fasting ) UREA NITROGEN [MASS/VOLU ME] IN SERUM OR PLASMA 28 mg/dL 7 - 25 10/20 H Specimen Type: SERUM No comment entered. Ordering Provider: Pablo STEWART Report Released Date/Time: Oct 21, 2023 02:15 PM Reporting Lab: [facility] [address] [address] Performing Lab: [facility] [address] [facility] [address] [facility] BASIC METABOLI C PANEL (fasting ) GLUCOSE [MASS/VOLU ME] IN SERUM OR PLASMA 147 mg/dL 65 - 100 10/20 H Specimen Type: SERUM No comment entered. Ordering Provider: Pablo STEWART Report Released Date/Time: Oct 21, 2023 02:15 PM Reporting Lab: [facility]ITAL[facility] [address] [address] Performing Lab: [facility] [address] [address] [facility]ITALN [facility] BASIC METABOLI C PANEL (fasting ) SODIUM [MOLES/VOL UME] IN SERUM OR PLASMA 139 mmol/L 135 - 145 10/20 Specimen Type: SERUM No comment entered. Ordering Provider: Pablo STEWART Report Released Date/Time: Oct 21, 2023 02:15 PM Reporting Lab: [place] [facility] [place] [facility] [address] [facility] [address] Performing Lab: [facility] [place] [address] [address] [place] [facility] [place] [facility] BASIC METABOLI C PANEL (fasting ) POTASSIUM [MOLES/VOL UME] IN SERUM OR PLASMA 4.4 mmol/L 3.5 - 5.0 10/20 Specimen Type: SERUM No comment entered. Ordering Provider: Pablo STEWART Report Released Date/Time: Oct 21, 2023 02:15 PM Reporting Lab: [facility] [place] [address] [address] Performing Lab: [facility] [place] [address] [address] [facility] [place] [facility] BASIC METABOLI C PANEL (fasting ) CHLORIDE [MOLES/VOL UME] IN SERUM OR PLASMA 103 mmol/L 100 - 110 10/20 Specimen Type: SERUM No comment entered. Ordering Provider: Pablo STEWART Report Released Date/Time: Oct 21, 2023 02:15 PM Reporting Lab: [facility] [place] [address] [address] Performing Lab: [facility] [place] [address] [address] [facility] [place] [facility] BASIC METABOLI C PANEL (fasting ) CARBON DIOXIDE, TOTAL [MOLES/VOL UME] IN SERUM OR PLASMA 27 meq/L 20 - 30 10/20 Specimen Type: SERUM No comment entered. Ordering Provider: Pablo STEWART Report Released Date/Time: Oct 21, 2023 02:15 PM Reporting Lab: [facility] [place] [address] [address] Performing Lab: [facility] [place] [address] [place] [address] [facility] [place] [facility] BASIC METABOLI C PANEL (fasting ) CREATININE [MASS/VOLU ME] IN SERUM OR PLASMA 1.74 mg/dL 0.50 - 1.40 10/20 H Specimen Type: SERUM No comment entered. Ordering Provider: Pablo STEWART Report Released Date/Time: Oct 21, 2023 02:15 PM Reporting Lab: [facility] [place] [address] [address] Performing Lab: [facility] [place] [address] [address] [place] [facility] [place] [facility] BASIC METABOLI C PANEL (fasting ) GLOMERULAR FILTRATION RATE/1.73 SQ M.PREDICTE D [VOLUME RATE/AREA] IN SERUM, PLASMA OR BLOOD BY CREATININE -BASED FORMULA (CKD-EPI 2020) 45 mL/min 60 10/20 L Specimen Type: SERUM No comment entered. Ordering Provider: Pablo STEWART Report Released Date/Time: Oct 21, 2023 02:15 PM Reporting Lab: [facility] [place] [address] [address] Performing Lab: [place] [facility] [place] [address] [address] [facility] [place] [facility] LIVER FUNCTION PROTEIN [MASS/VOLU ME] IN SERUM OR PLASMA 6.7 g/dL 6.0 - 8.3 10/20 Specimen Type: SERUM No comment entered. Ordering Provider: Pablo STEWART Report Released Date/Time: Oct 21, 2023 02:15 PM Reporting Lab: [facility] [place] [address] [address] Performing Lab: [facility] [place] [address] [address] [facility] [place] [facility] LIVER FUNCTION ALBUMIN [MASS/VOLU ME] IN SERUM OR PLASMA 4.1 g/dL 3.5 - 5.0 10/20 Specimen Type: SERUM No comment entered. Ordering Provider: Pablo STEWART Report Released Date/Time: Oct 21, 2023 02:15 PM Reporting Lab: [facility] [place] [facility] [address] [facility] [address] Performing Lab: [facility] [place] [facility] [address] [facility] [address] [facility] [place] [facility] LIVER FUNCTION ALKALINE PHOSPHATAS E [ENZYMATIC ACTIVITY/V OLUME] IN SERUM OR PLASMA 84 U/L 40 - 150 10/20 Specimen Type: SERUM No comment entered. Ordering Provider: Pablo STEWART Report Released Date/Time: Oct 21, 2023 02:15 PM Reporting Lab: [facility] [place] [facility] [address] [facility] [address] Performing Lab: [facility] [place] [facility] [address] [facility] [address] [facility] [place] [facility] LIVER FUNCTION ASPARTATE AMINOTRANS FERASE [ENZYMATIC ACTIVITY/V OLUME] IN SERUM OR PLASMA 19 U/L 5 - 34 10/20 Specimen Type: SERUM No comment entered. Ordering Provider: Pablo STEWART Report Released Date/Time: Oct 21, 2023 02:15 PM Reporting Lab: [facility] [place] [facility] [address] [facility] [address] Performing Lab: [facility] [place] [facility] [address] [facility] [address] [facility] [place] [facility] LIVER FUNCTION ALANINE AMINOTRANS FERASE [ENZYMATIC ACTIVITY/V OLUME] IN SERUM OR PLASMA 28 U/L 10/20 Specimen Type: SERUM No comment entered. Ordering Provider: Pablo STEWART Report Released Date/Time: Oct 21, 2023 02:15 PM Reporting Lab: [facility] [place] [facility] [address] [facility] [address] Performing Lab: [facility] [place] [facility] [address] [facility] [address] [facility] [place] [facility] LIVER FUNCTION BILIRUBIN. TOTAL [MASS/VOLU ME] IN SERUM OR PLASMA 0.6 mg/dL 0.2 - 1.2 10/20 Specimen Type: SERUM No comment entered. Ordering Provider: Pablo STEWART Report Released Date/Time: Oct 21, 2023 02:15 PM Reporting Lab: [facility] [place] [address] [address] Performing Lab: [facility] [place] [address] [address] [place] [facility] [place] [facility] LIPID PANEL FASTING CHOLESTERO L [MASS/VOLU ME] IN SERUM OR PLASMA 84 mg/dL 10/20 Specimen Type: SERUM No comment entered. Ordering Provider: Pablo STEWART Report Released Date/Time: Oct 21, 2023 02:15 PM Reporting Lab: [facility] [place] [address] [address] Performing Lab: [facility] [place] [address] [address] [facility] [place] [facility] LIPID PANEL FASTING TRIGLYCERI DE [MASS/VOLU ME] IN SERUM OR PLASMA 87 mg/dL 0 - 150 10/20 Specimen Type: SERUM No comment entered. Ordering Provider: Pablo STEWART Report Released Date/Time: Oct 21, 2023 02:15 PM Reporting Lab: [facility] [place] [address] [address] Performing Lab: [facility] [place] [address] [address] [facility] [place] [facility] LIPID PANEL FASTING CHOLESTERO L IN LDL [MASS/VOLU ME] IN SERUM OR PLASMA BY CALCULATIO N 30 mg/dL 0 - 129 10/20 Specimen Type: SERUM No comment entered. Ordering Provider: Pablo STEWART Report Released Date/Time: Oct 21, 2023 02:15 PM Reporting Lab: [facility] [place] [address] [address] Performing Lab: [facility] [address] [facility] [address] [facility] LIPID PANEL FASTING CHOLESTERO L.TOTAL/CH OLESTEROL IN HDL [MASS RATIO] IN SERUM OR PLASMA 2.3 10/20 Specimen Type: SERUM No comment entered. Ordering Provider: Pablo STEWART Report Released Date/Time: Oct 21, 2023 02:15 PM Reporting Lab: [facility]N [facility]USE[facility] [address] [facility] [address] Performing Lab: [facility]ALTHRPRATTVIL[facility]OSPITALN [facility]ENTERUSE[facility] [address] [facility] [address] [facility]USE [facility] LIPID PANEL FASTING CHOLESTERO L IN HDL [MASS/VOLU ME] IN SERUM OR PLASMA 37 mg/dL 40 - 60 10/20 L Specimen Type: SERUM No comment entered. Ordering Provider: Pablo STEWART Report Released Date/Time: Oct 21, 2023 02:15 PM Reporting Lab: [facility]ENTERUSE[facility] [address] [facility] [address] Performing Lab: [facility] TRN [facility] CENTERUSE[address] [address] [facility] HEMOGLOB IN A1C PANEL HEMOGLOBIN [...] Oct 21, 2023 02:15 PM Reporting Lab: [address] [address] Performing Lab: [address] [address] [facility] [place] [facility] URINALYS IS COLOR OF URINE Yellow 10/20 Specimen Type: URINE Comment: If Glucose = >500 and Ketones are positive, please alert the Physician. Ordering Provider: Pablo STEAWRT Report Released Date/Time: Oct 21, 2023 02:15 PM Reporting Lab: [place] [facility] [place] [facility] [address] [facility] [address] Performing Lab: [place] [facility] [place] [facility] [address] [facility] [address] [facility] [place] [facility] URINALYS IS APPEARANCE OF URINE Clear 10/20 Specimen Type: URINE Comment: If Glucose = >500 and Ketones are positive, please alert the Physician. Ordering Provider: Pablo STEWART Report Released Date/Time: Oct 21, 2023 02:15 PM Reporting Lab: [facility] [place] [address] [address] Performing Lab: [place] [facility] [place] [facility] [address] [facility] [address] [facility] [place] [facility] URINALYS IS GLUCOSE [MASS/VOLU ME] IN URINE NEGATIVE mg/dL 10/20 Specimen Type: URINE Comment: If Glucose = >500 and Ketones are positive, please alert the Physician. Ordering Provider: Pablo STEWART Report Released Date/Time: Oct 21, 2023 02:15 PM Reporting Lab: [facility] [place] [facility] [address] [facility] [address] Performing Lab: [place] [facility] [place] [facility] [address] [facility] [address] [facility] [place] [facility] URINALYS IS KETONES [MASS/VOLU ME] IN URINE BY TEST STRIP NEGATIVE mg/dL 10/20 Specimen Type: URINE Comment: If Glucose = >500 and Ketones are positive, please alert the Physician. Ordering Provider: Pablo STEWART Report Released Date/Time: Oct 21, 2023 02:15 PM Reporting Lab: [place] [facility] [place] [facility] [address] [facility] [address] Performing Lab: [place] [facility] [place] [facility] [address] [facility] [address] [facility] [place] [facility] URINALYS IS ERYTHROCYT ES [PRESENCE] IN URINE SEDIMENT BY LIGHT MICROSCOPY NEGATIVE mg/dL 10/20 Specimen Type: URINE Comment: If Glucose = >500 and Ketones are positive, please alert the Physician. Ordering Provider: Pablo STEWART Report Released Date/Time: Oct 21, 2023 02:15 PM Reporting Lab: [place] [facility] [place] [facility] [address] [facility] [address] Per[place] Lab: [place] [facility] [place] [facility] [address] [facility] [address] [facility] [place] [facility] URINALYS IS PROTEIN [MASS/VOLU ME] IN URINE BY TEST STRIP 20 mg/dL 10/20 Specimen Type: URINE Comment: If Glucose = >500 and Ketones are positive, please alert the Physician. Ordering Provider: Pablo STEWART Report Released Date/Time: Oct 21, 2023 02:15 PM Reporting Lab: [place] [facility] [place] [facility] [address] [facility] [address] Performing Lab: [facility] [place] [facility] [address] [facility] [address] [facility] [place] [facility] URINALYS IS NITRITE [PRESENCE] IN URINE NEGATIVE mg/dL 10/20 Specimen Type: URINE Comment: If Glucose = >500 and Ketones are positive, please alert the Physician. Ordering Provider: Pablo STEWART Report Released Date/Time: Oct 21, 2023 02:15 PM Reporting Lab: [place] [facility] [place] [facility] [address] [facility] [address] Per[facility] Lab: [facility] [place] [facility] [address] [facility] [address] [place] [facility] [place] [facility] URINALYS IS BILIRUBIN. TOTAL [PRESENCE] IN URINE NEGATIVE mg/dL 10/20 Specimen Type: URINE Comment: If Glucose = >500 and Ketones are positive, please alert the Physician. Ordering Provider: Pablo STEWART Report Released Date/Time: Oct 21, 2023 02:15 PM Reporting Lab: [facility]ALTHRPRATTVIL[facility]OSPITALN [facility] CENTERUSETS [facility] [address] [facility] [address] Performing Lab: [facility]ERN [facility] CENTERUSE[address] [address] [facility]ERN [facility]ENTERUSE [facility] URINALYS IS SPECIFIC GRAVITY OF URINE BY REFRACTOME TRY 1.024 1.016 - 1.022 10/20 H Specimen Type: URINE Comment: If Glucose = >500 and Ketones are positive, please alert the Physician. Ordering Provider: Pablo STEWART Report Released Date/Time: Oct 21, 2023 02:15 PM Reporting Lab: [facility]ERN [facility] CENTERUSE[address] [address] Performing Lab: [facility]RPRATTVIL[facility] HOSPITALN [facility] CENTERUSE[address] [address] [facility] URINALYS IS PH OF URINE BY TEST STRIP 6.0 5.0 - 9.0 10/20 Specimen Type: URINE Comment: If Glucose = >500 and Ketones are positive, please alert the Physician. Ordering Provider: Pablo STEWART Report Released Date/Time: Oct 21, 2023 02:15 PM Reporting Lab: [facility]ERN [facility] CENTERUSE[address] [address] Performing Lab: [facility]RJACKSON HOSPITALTRN [facility] CENTERUSE[address] [address] [facility]ERN [facility]ENTERUSE [facility] URINALYS IS UROBILINOG EN [MASS/VOLU ME] IN URINE BY TEST STRIP <2.0mg/d L <2.0 - 2.0 10/20 Specimen Type: URINE Comment: If Glucose = >500 and Ketones are positive, please alert the Physician. Ordering Provider: Pablo STEWART Report Released Date/Time: Oct 21, 2023 02:15 PM Reporting Lab: [facility] [place] [facility] [address] [facility] [address] Per[facility] Lab: [facility] [place] [facility] [address] [facility] [address] [facility] [place] [facility] URINALYS IS LEUKOCYTE ESTERASE [PRESENCE] IN URINE BY TEST STRIP NEGATIVE 10/20 Specimen Type: URINE Comment: If Glucose = >500 and Ketones are positive, please alert the Physician. Ordering Provider: Pablo STEWART Report Released Date/Time: Oct 21, 2023 02:15 PM Reporting Lab: [facility] [place] [facility] [address] [facility] [address] Performing Lab: [facility] [place] [facility] [address] [facility] [address] [facility] [place] [facility] MICROALB UMIN CREATINI NE RATIO PANEL MICROALBUM IN/CREATIN INE [MASS RATIO] IN URINE 6.2 mg/g 0 - 29.9 10/20 Specimen Type: URINE No comment entered. Ordering Provider: Pablo STEWART Report Released Date/Time: Oct 21, 2023 02:15 PM Reporting Lab: [facility] [place] [facility] [address] [facility] [address] Performing Lab: [facility] [place] [facility] [address] [facility] [address] [facility] [place] [facility] MICROALB UMIN CREATINI NE RATIO PANEL MICROALBUM IN [MASS/VOLU ME] IN URINE 1.5 mg/dL 10/20 Specimen Type: URINE No comment entered. Ordering Provider: Pablo STEWART Report Released Date/Time: Oct 21, 2023 02:15 PM Reporting Lab: [facility] [place] [facility] [address] [facility] [address] Performing Lab: [facility] [place] [facility] [address] [facility] [address] [facility] [place] [facility] MICROALB UMIN CREATINI NE RATIO PANEL CREATININE [MASS/VOLU ME] IN URINE 240.98 mg/dL 10/20 Specimen Type: URINE No comment entered. Ordering Provider: Pablo STEWART Report Released Date/Time: Oct 21, 2023 02:15 PM Reporting Lab: [facility] [place] [facility] [address] [facility] [address] Performing Lab: [facility] [place] [facility] [address] [facility] [address] [facility] [place] URIC ACID URATE [MASS/VOLU ME] IN SERUM OR PLASMA 5.4 mg/dL 3.5 - 7.2 10/20 Specimen Type: SERUM No comment entered. Ordering Provider: Pablo STEWART Report Released Date/Time: Oct 21, 2023 02:15 PM Reporting Lab: [facility] [place] [facility] [address] [facility] [address] Performing Lab: [facility] [place] [facility] [address] [facility] [address] [facility] [place] [facility] Vital Signs Combined list of inpatient [...] [facility] [place] En[facility] [id number] 10/11 [facility] En[facility] [id number] 10/11 [facility] [place] En[facility] [id number] 10/14 [facility] [place] En[facility] [id number] 10/14 [facility] OFFICE O/P NEW MOD 45 MIN [id number] Diagnos is: ICD-10- CM 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, unspeci MARILUZ Grider 10/20 [facility] [id number] Diagnos is: ICD-10- CM E66.09 Other obesity due to excess calorie s MANEKAS,DI NA L 11/17 [facility] En[facility] [id number] 11/25 [facility] [place] [id number] Diagnos is: ICD-10- CM E66.09 Other obesity due to excess calorie s MANEKAS,DI NA L 12/13 [facility] En[facility] [id number] 01/10 [facility] [id number] Diagnos is: ICD-10- CM E66.09 Other obesity due to excess calorie s MANEKAS,DI NA L 01/13 [facility] En[facility] [id number] 02/20 [facility] [id number] 1. Diagnos is: ICD-10- CM E66.09 Other obesity due to excess calorie s MANEKAS,DI NA L 02/20 [facility] Out[facility] Encounter [id number] SARAH GARCIA ISTOPHER E 02/23 [facility] Encounter [id number] Diagnos is: ICD-10- CM E66.09 Other obesity due to excess calorie s MANEKAS,DI NA L 03/13 [facility]counter [id number] 03/27 [facility] Encounter [id number] Diagnos is: ICD-10- CM E66.09 Other obesity due to excess calorie s MANEKAS,DI NA L 04/14 [facility] [id number] 05/02 [facility] [id number] 11/08 [facility] Social History Combined list of available smoking, tobacco, and other social 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 Social History Type Response Date Comment Sourc e Tobacco smoking status NHIS [facility]AC[facility] NEVER USED 10/15/2023 [facility]
--- OUTSIDE RECORDS SUMMARY | 2025-01-12 11:53 | XMS_ITS | Patient Health Record ---
Author Organization [facility] Tavon brittany [place] Address [address] [facility] [place] [address] Care Team Providers Care Scientific Software Developer Name Role Phone Robin Pierre Primary Care Provider Unavailabl e Black, Stephanie Unavailable [phone] Reason For Referral No Information Medications Medication [...] Problem Acquired hammer toe of right foot ([id number]) Other hammer toe(s) (acquired), right foot (M20.41) Active confirmed Problem Acquired hammer toe of left foot ([id number]) Other hammer toe(s) (acquired), left foot (M20.42) Active confirmed Problem Type 2 diabetes mellitus with diabetic polyneuropathy (E11.42) Active confirmed Plan Of Treatment Pending Test Test Name Order Date X ray : Foot, right 3V 09/16/2017 [id number] NAIL, 1-5 09/05/2018 [id number] NAIL, 1-5 03/18/2017 [id number] NAIL, 1-09/16/2017 [id number] Plate 09/05/2018 [id number] SKIN LESIONS, 2 TO 4 09/06/19 19 [id number] NAIL(S) 09/05/2018 [id number] NAIL(S) 09/16/2017 [id number] NAIL(S) 03/18/2017 Medical (General) History Medical History History ICD Code Anxiety Back,Hip,and Knee pain Depression Diabetic Gout High blood pressure Numbness Surgical History Surgery Date(Month/Year) Hospitalization History Reason Date(Month/Year) C-CEellulitis Left leg- 9 DAYS 01/07/17 [facility] [place] cellulitis 07/2018
--- OUTSIDE RECORDS SUMMARY | 2025-01-12 11:53 | XMS_ITS | Clinical Summary ---
Author Organization [facility] Address [address] [facility] [address] [place] [address] Phone Care Team Providers Care Marketing Manager Name Role Phone Gabby Kelly MD Primary Care Provider Allergies No known active allergies Medications Multiple Vitamins-Sibley als (MULTIVITAMIN ADULT EXTRA C PO) Take [...] Visual Foot Exam 07/28/2020 Influenza Vaccine (#1) 2025 Insurance Medicaid [facility] Medicaid [facility] Care Teams Marketing Manager Relationship Specialty Start Date End Date Gabby Kelly MD [facility] [place] [address] PCP - General 07/08/20
--- OUTSIDE RECORDS SUMMARY | 2025-01-12 11:53 | XMS_ITS | Clinical Summary ---
Author Organization [facility] Address [address] [place] [address] Care Team Providers Care Goal Umpire Name Role Phone Gabby Kelly Primary Care Provider [phone] Allergies No known active allergies Medications amLODIPine [...] 03/30/2024, 05/2023, 03/09/2022, Additional history exists Insurance [facility] Care Teams Goal Umpire Relationship Specialty Start Date End Date Robin, Gabby [facility] ORALIA Wallace [id number] PCP - General Internal Medicine 08/15/24
[2025-01-12 13:18] LABS: Hemoglobin A1C 122.8023 umol/L; Total Hemoglobin (HGBA1C) 3583.3320 umol/L
[2025-01-12 13:28] LABS: Alanine Aminotransferase 40 U/L (0-40); Albumin Level 4.4 g/dL (3.5-5.0); Alkaline Phosphatase 84 U/L (39-117); Anion Gap 11 (12-20); Aspartate Amino Transferase 26 U/L (5-37); Blood Urea Nitrogen 22 mg/dL (9-16); Calcium 9.3 mg/dL (8.4-10.2); Carbon Dioxide 28 mmol/L (22-29); Chloride 104 mmol/L (96-108); Estimated Glomerular Filt Rate 44; Potassium 4.2 mmol/L (3.3-5.1); Sodium 139 mmol/L (135-145); Total Protein 6.8 g/dL (6.5-8.0)
== END 2025-01-12 11:28 | disposition home or self-care (01) ==
LOC: HO.HMGCLDS 11:27
PROVIDERS: PCP Internal Medicine; Visit Provider Internal Medicine
DX: I10 Essential (primary) hypertension (principal); E13.9 Other specified diabetes mellitus without complications
CPT/HCPCS: 36415; 80053; 83036

== ENCOUNTER 2025-01-16 14:31 | Outpatient (AMB) | payer OTHER, SELFPAY ==
--- OUTSIDE RECORDS SUMMARY | 2024-12-26 01:50 | XMS_ITS | Continuity of Care Document ---
Author Name [facility] Organization [facility] Care Team Providers Care Bottom Hoop Driver Name Role Phone [facility] Unavailable Unavailable Problems Combined list of problems [...] [place] [facility] Exposure to potentially hazardous substance ([facility] [id number] ) Active Condition Oct 22, 2023 Entered [...] Site Reaction Lot Number CVX Code Drug Labor Conciliator Status Comments Source INFLUENZA, UNSPECIFIED FORMULATION 2022 88 complet ed HISTORICA L INFORMATI ON - FROM OTHER REGISTRY, [facility] [place] COVID-19 (MODERNA), MRNA, LNP-S, PF, 100 MCG/0.5ML DOSE OR 50 MCG/0.25ML DOSE 2020 207 complet ed Booster for Series, HISTORICA L INFORMATI ON - FROM OTHER PROVIDER, [facility] [place] COVID-19 (PFIZER), MRNA, LNP-S, PF, 30 MCG/0.3 ML DOSE 2 2020 208 complet ed HISTORICA L INFORMATI ON - [facility] COVID-19 (PFIZER), MRNA, LNP-S, PF, 30 MCG/0.3 ML DOSE 1 2020 208 complet ed HISTORICA L INFORMATI ON - [facility] Results Combined list of recent chemistry, hematology [...] Oct 21, 2023 02:15 PM Reporting Lab: [address] [address] Performing Lab: [address] [address] [facility] HEPATITI S B SURFACE ANTIBODY (HBsAb)- WH HEPATITIS B VIRUS SURFACE AB [PRESENCE] IN SERUM BY IMMUNOASSA Y Non Reactive 10/20 Specimen Type: SERUM No comment entered. Ordering Provider: Pablo STEWART Report Released Date/Time: Oct 21, 2023 02:15 PM Reporting Lab: [address] [address] Performing Lab: [facility] [address] [facility] [address] [facility] HEPATITI S C ANTIBODY (HCV)-AR C HEPATITIS C VIRUS AB [PRESENCE] IN SERUM NON-REAC TIVE 10/20 Specimen Type: SERUM Comment: Hep C Ab: No HCV antibody detected. If recent infection is suspected or other evidence suggests HCV infection, consider HCV nucleic acid testing Ordering Provider: Pablo STEWART Report Released Date/Time: Oct 21, 2023 02:15 PM Reporting Lab: [facility] [address] [facility] [address] Performing Lab: [facility] [address] [address] [facility] BASIC METABOLI C PANEL (fasting ) UREA NITROGEN [MASS/VOLU ME] IN SERUM OR PLASMA 28 mg/dL 7 - 25 10/20 H Specimen Type: SERUM No comment entered. Ordering Provider: Pablo STEWART Report Released Date/Time: Oct 21, 2023 02:15 PM Reporting Lab: [facility]ITALN [address] [address] Performing Lab: [facility]ITALRL [facility] [address] [facility] [address] [facility] BASIC METABOLI C PANEL (fasting ) GLUCOSE [MASS/VOLU ME] IN SERUM OR PLASMA 147 mg/dL 65 - 100 10/20 H Specimen Type: SERUM No comment entered. Ordering Provider: Pablo STEWART Report Released Date/Time: Oct 21, 2023 02:15 PM Reporting Lab: [facility]N [address] [address] Performing Lab: [facility]ITALN [address] [address] [facility]N [facility] BASIC METABOLI C PANEL (fasting ) SODIUM [MOLES/VOL UME] IN SERUM OR PLASMA 139 mmol/L 135 - 145 10/20 Specimen Type: SERUM No comment entered. Ordering Provider: Pablo STEWART Report Released Date/Time: Oct 21, 2023 02:15 PM Reporting Lab: [facility] [place] [facility] [address] [facility] [address] Performing Lab: [facility] [place] [address] [address] [facility] [place] [facility] BASIC METABOLI C PANEL (fasting ) POTASSIUM [MOLES/VOL UME] IN SERUM OR PLASMA 4.4 mmol/L 3.5 - 5.0 10/20 Specimen Type: SERUM No comment entered. Ordering Provider: Pablo STEWART Report Released Date/Time: Oct 21, 2023 02:15 PM Reporting Lab: [facility] [place] [address] [address] Performing Lab: [facility] [place] [address] [address] [facility] [place] [facility] BASIC METABOLI C PANEL (fasting ) CHLORIDE [MOLES/VOL UME] IN SERUM OR PLASMA 103 mmol/L 100 - 110 10/20 Specimen Type: SERUM No comment entered. Ordering Provider: Pablo STEWART Report Released Date/Time: Oct 21, 2023 02:15 PM Reporting Lab: [facility] [place] [address] [address] Performing Lab: [facility] [place] [address] [address] [facility] [place] [facility] BASIC METABOLI C PANEL (fasting ) CARBON DIOXIDE, TOTAL [MOLES/VOL UME] IN SERUM OR PLASMA 27 meq/L 20 - 30 10/20 Specimen Type: SERUM No comment entered. Ordering Provider: Pablo STEWART Report Released Date/Time: Oct 21, 2023 02:15 PM Reporting Lab: [facility] [place] [address] [address] Performing Lab: [facility] [place] [address] [place] [address] [facility] [place] [facility] BASIC METABOLI C PANEL (fasting ) CREATININE [MASS/VOLU ME] IN SERUM OR PLASMA 1.74 mg/dL 0.50 - 1.40 10/20 H Specimen Type: SERUM No comment entered. Ordering Provider: Pablo TSEWART Report Released Date/Time: Oct 21, 2023 02:15 PM Reporting Lab: [facility] [place] [address] [address] Performing Lab: [facility] [place] [address] [address] [place] [facility] [place] [facility] BASIC METABOLI C PANEL (fasting ) GLOMERULAR FILTRATION RATE/1.73 SQ M.PREDICTE D [VOLUME RATE/AREA] IN SERUM, PLASMA OR BLOOD BY CREATININE -BASED FORMULA (CKD-EPI 2020) 45 mL/min 60 10/20 L Specimen Type: SERUM No comment entered. Ordering Provider: Pablo STEWART Report Released Date/Time: Oct 21, 2023 02:15 PM Reporting Lab: [facility] [place] [address] [address] Performing Lab: [facility] [place] [address] [address] [facility] [place] [facility] LIVER FUNCTION PROTEIN [MASS/VOLU ME] IN SERUM OR PLASMA 6.7 g/dL 6.0 - 8.3 10/20 Specimen Type: SERUM No comment entered. Ordering Provider: Pablo STEWART Report Released Date/Time: Oct 21, 2023 02:15 PM Reporting Lab: [facility] [place] [address] [address] Performing Lab: [facility] [place] [address] [address] [facility] [place] [facility] LIVER FUNCTION ALBUMIN [MASS/VOLU ME] IN SERUM OR PLASMA 4.1 g/dL 3.5 - 5.0 10/20 Specimen Type: SERUM No comment entered. Ordering Provider: Pablo STEWART Report Released Date/Time: Oct 21, 2023 02:15 PM Reporting Lab: [facility] [place] [facility] [address] [facility] [address] Performing Lab: [facility] [place] [facility] [address] [facility] [address] [facility] [place] [facility] LIVER FUNCTION ALKALINE PHOSPHATAS E [ENZYMATIC ACTIVITY/V OLUME] IN SERUM OR PLASMA 84 U/L 40 - 150 10/20 Specimen Type: SERUM No comment entered. Ordering Provider: Pablo STEWART Report Released Date/Time: Oct 21, 2023 02:15 PM Reporting Lab: [facility] [place] [facility] [address] [facility] [address] Performing Lab: [facility] [place] [facility] [address] [facility] [address] [facility] [place] [facility] LIVER FUNCTION ASPARTATE AMINOTRANS FERASE [ENZYMATIC ACTIVITY/V OLUME] IN SERUM OR PLASMA 19 U/L 5 - 34 10/20 Specimen Type: SERUM No comment entered. Ordering Provider: Pablo STEWART Report Released Date/Time: Oct 21, 2023 02:15 PM Reporting Lab: [facility] [place] [facility] [address] [facility] [address] Performing Lab: [facility] [place] [facility] [address] [facility] [address] [facility] [place] [facility] LIVER FUNCTION ALANINE AMINOTRANS FERASE [ENZYMATIC ACTIVITY/V OLUME] IN SERUM OR PLASMA 28 U/L 10/20 Specimen Type: SERUM No comment entered. Ordering Provider: Pablo STEWART Report Released Date/Time: Oct 21, 2023 02:15 PM Reporting Lab: [facility] [place] [facility] [address] [facility] [address] Performing Lab: [facility] [place] [facility] [address] [facility] [address] [facility] [place] [facility] LIVER FUNCTION BILIRUBIN. TOTAL [MASS/VOLU ME] IN SERUM OR PLASMA 0.6 mg/dL 0.2 - 1.2 10/20 Specimen Type: SERUM No comment entered. Ordering Provider: Pablo STEWART Report Released Date/Time: Oct 21, 2023 02:15 PM Reporting Lab: [facility] [place] [address] [address] Performing Lab: [facility] [place] [address] [address] [facility] [place] [facility] LIPID PANEL FASTING CHOLESTERO L [MASS/VOLU ME] IN SERUM OR PLASMA 84 mg/dL 10/20 Specimen Type: SERUM No comment entered. Ordering Provider: Pablo STEWART Report Released Date/Time: Oct 21, 2023 02:15 PM Reporting Lab: [facility] [place] [address] [address] Performing Lab: [facility] [place] [address] [address] [facility] [place] [facility] LIPID PANEL FASTING TRIGLYCERI DE [MASS/VOLU ME] IN SERUM OR PLASMA 87 mg/dL 0 - 150 10/20 Specimen Type: SERUM No comment entered. Ordering Provider: Pablo STEWART Report Released Date/Time: Oct 21, 2023 02:15 PM Reporting Lab: [facility] [place] [address] [address] Performing Lab: [facility] [place] [address] [address] [facility] [place] [facility] LIPID PANEL FASTING CHOLESTERO L IN LDL [MASS/VOLU ME] IN SERUM OR PLASMA BY CALCULATIO N 30 mg/dL 0 - 129 10/20 Specimen Type: SERUM No comment entered. Ordering Provider: Pablo STEWART Report Released Date/Time: Oct 21, 2023 02:15 PM Reporting Lab: [facility] [place] [address] [address] Performing Lab: [facility] [address] [facility] [address] FORMER[facility]RL [facility]N [facility]USE [facility] LIPID PANEL FASTING CHOLESTERO L.TOTAL/CH OLESTEROL IN HDL [MASS RATIO] IN SERUM OR PLASMA 2.3 10/20 Specimen Type: SERUM No comment entered. Ordering Provider: Pablo STEWART Report Released Date/Time: Oct 21, 2023 02:15 PM Reporting Lab: [facility]PITALRL TRN [facility] HOSPITALUSEMOHAWK [facility] [address] [facility] [address] Performing Lab: [facility]ITALRCL[facility] HOSPITALN [facility] HOSPITALUSEMOHAWK [facility] [address] [address] [facility]USE [facility] LIPID PANEL FASTING CHOLESTERO L IN HDL [MASS/VOLU ME] IN SERUM OR PLASMA 37 mg/dL 40 - 60 10/20 L Specimen Type: SERUM No comment entered. Ordering Provider: Pablo STEWART Report Released Date/Time: Oct 21, 2023 02:15 PM Reporting Lab: [facility]LY [facility]PITALRL TRN [facility] HOSPITALUSEMOHAWK [facility] [address] [facility] [address] Performing Lab: FORMERLY [facility]PITALRL TRN [facility]OSPITALUSE[address] [address] [facility]USE [facility] HEMOGLOB IN A1C PANEL HEMOGLOBIN A1C/HEMOGL [...] Oct 21, 2023 02:15 PM Reporting Lab: [address] [address] Performing Lab: [address] [address] [facility] [place] URINALYS IS COLOR OF URINE Yellow 10/20 Specimen Type: URINE Comment: If Glucose = >500 and Ketones are positive, please alert the Physician. Ordering Provider: Pablo STEWART Report Released Date/Time: Oct 21, 2023 02:15 PM Reporting Lab: [facility] [place] [facility] [address] [facility] [address] Performing Lab: [facility] [place] [facility] [address] [facility] [address] [facility] [place] [facility] URINALYS IS APPEARANCE OF URINE Clear 10/20 Specimen Type: URINE Comment: If Glucose = >500 and Ketones are positive, please alert the Physician. Ordering Provider: Pablo STEWART Report Released Date/Time: Oct 21, 2023 02:15 PM Reporting Lab: [facility] [place] [address] [address] Performing Lab: [place] [facility] [place] [facility] [address] [facility] [address] [facility]RL [facility] [place] [facility] URINALYS IS GLUCOSE [MASS/VOLU ME] IN URINE NEGATIVE mg/dL 10/20 Specimen Type: URINE Comment: If Glucose = >500 and Ketones are positive, please alert the Physician. Ordering Provider: Pablo STEWART Report Released Date/Time: Oct 21, 2023 02:15 PM Reporting Lab: [facility] [place] [facility] [address] [facility] [address] Performing Lab: [facility] [place] [facility] [address] [facility] [address] [facility] [place] URINALYS IS KETONES [MASS/VOLU ME] IN URINE BY TEST STRIP NEGATIVE mg/dL 10/20 Specimen Type: URINE Comment: If Glucose = >500 and Ketones are positive, please alert the Physician. Ordering Provider: Pablo STEWART Report Released Date/Time: Oct 21, 2023 02:15 PM Reporting Lab: [facility] [facility] [address] [facility] [address] Performing Lab: [facility] [place] [facility] [address] [facility] [address] [place] [facility] [place] [facility] URINALYS IS ERYTHROCYT ES [PRESENCE] IN URINE SEDIMENT BY LIGHT MICROSCOPY NEGATIVE mg/dL 10/20 Specimen Type: URINE Comment: If Glucose = >500 and Ketones are positive, please alert the Physician. Ordering Provider: Pablo STEWART Report Released Date/Time: Oct 21, 2023 02:15 PM Reporting Lab: [facility] [place] [facility] [address] [facility] [address] Performing Lab: [facility] [place] [facility] [address] [facility] [address] [facility] [place] [facility] URINALYS IS PROTEIN [MASS/VOLU ME] IN URINE BY TEST STRIP 20 mg/dL 10/20 Specimen Type: URINE Comment: If Glucose = >500 and Ketones are positive, please alert the Physician. Ordering Provider: Pablo STEWART Report Released Date/Time: Oct 21, 2023 02:15 PM Reporting Lab: [facility] [place] [facility] [address] [facility] [address] Performing Lab: [facility] [place] [facility] [address] [facility] [address] [facility] [place] [facility] URINALYS IS NITRITE [PRESENCE] IN URINE NEGATIVE mg/dL 10/20 Specimen Type: URINE Comment: If Glucose = >500 and Ketones are positive, please alert the Physician. Ordering Provider: Pablo STEWART Report Released Date/Time: Oct 21, 2023 02:15 PM Reporting Lab: [facility] [place] [facility] [address] [facility] [address] Performing Lab: [facility] [place] [facility] [address] [facility] [address] [place] [facility] [place] [facility] URINALYS IS BILIRUBIN. TOTAL [PRESENCE] IN URINE NEGATIVE mg/dL 10/20 Specimen Type: URINE Comment: If Glucose = >500 and Ketones are positive, please alert the Physician. Ordering Provider: Pablo STEWART Report Released Date/Time: Oct 21, 2023 02:15 PM Reporting Lab: [facility]ITALRCL[facility] COUNTY HOSPITALN [facility] HOSPITALUSETS [facility] [address] [address] Performing Lab: [facility]OSPITALUSE[address] [address] [facility] HOSPITALUSE [facility] URINALYS IS SPECIFIC GRAVITY OF URINE BY REFRACTOME TRY 1.024 1.016 - 1.022 10/20 H Specimen Type: URINE Comment: If Glucose = >500 and Ketones are positive, please alert the Physician. Ordering Provider: Pablo STEWART Report Released Date/Time: Oct 21, 2023 02:15 PM Reporting Lab: [facility]ITALUSE[address] [address] Performing Lab: FORMERLY [facility]PITALRCLAY COUNTY HOSPITALN [facility]OSPITALUSE[address] [address] [facility]USE [facility] URINALYS IS PH OF URINE BY TEST STRIP 6.0 5.0 - 9.0 10/20 Specimen Type: URINE Comment: If Glucose = >500 and Ketones are positive, please alert the Physician. Ordering Provider: Pablo STEWART Report Released Date/Time: Oct 21, 2023 02:15 PM Reporting Lab: [facility]OSPITALUSE[address] [address] Performing Lab: FOR[facility]LY [facility]PITALRRANDOLPH MEDICAL CENTERTRN [facility]OSPITALUSE[address] [address] [facility]ITALUSE [facility] URINALYS IS UROBILINOG EN [MASS/VOLU ME] IN URINE BY TEST STRIP <2.0mg/d L <2.0 - 2.0 10/20 Specimen Type: URINE Comment: If Glucose = >500 and Ketones are positive, please alert the Physician. Ordering Provider: Pablo STEWART Report Released Date/Time: Oct 21, 2023 02:15 PM Reporting Lab: [facility] [place] [facility] [address] [facility] [address] Performing Lab: [facility] [place] [facility] [address] [facility] [address] [facility] [place] [facility] URINALYS IS LEUKOCYTE ESTERASE [PRESENCE] IN URINE BY TEST STRIP NEGATIVE 10/20 Specimen Type: URINE Comment: If Glucose = >500 and Ketones are positive, please alert the Physician. Ordering Provider: Pablo STEWART Report Released Date/Time: Oct 21, 2023 02:15 PM Reporting Lab: [facility] [place] [facility] [address] [facility] [address] Performing Lab: [facility] [place] [facility] [address] [facility] [address] [facility] [place] [facility] MICROALB UMIN CREATINI NE RATIO PANEL MICROALBUM IN/CREATIN INE [MASS RATIO] IN URINE 6.2 mg/g 0 - 29.9 10/20 Specimen Type: URINE No comment entered. Ordering Provider: Pablo STEWART Report Released Date/Time: Oct 21, 2023 02:15 PM Reporting Lab: [facility] [place] [facility] [address] [facility] [address] Performing Lab: [facility] [place] [facility] [address] [facility] [address] [facility] [place] [facility] MICROALB UMIN CREATINI NE RATIO PANEL MICROALBUM IN [MASS/VOLU ME] IN URINE 1.5 mg/dL 10/20 Specimen Type: URINE No comment entered. Ordering Provider: Pablo STEWART Report Released Date/Time: Oct 21, 2023 02:15 PM Reporting Lab: [facility] [place] [facility] [address] [facility] [address] Performing Lab: [facility] [place] [facility] [address] [facility] [address] [facility] [place] [facility] MICROALB UMIN CREATINI NE RATIO PANEL CREATININE [MASS/VOLU ME] IN URINE 240.98 mg/dL 10/20 Specimen Type: URINE No comment entered. Ordering Provider: Pablo STEWART Report Released Date/Time: Oct 21, 2023 02:15 PM Reporting Lab: [facility] [place] [facility] [address] [facility] [address] Performing Lab: [facility] [place] [facility] [address] [facility] [address] [facility] URIC ACID URATE [MASS/VOLU ME] IN SERUM OR PLASMA 5.4 mg/dL 3.5 - 7.2 10/20 Specimen Type: SERUM No comment entered. Ordering Provider: Pablo STEWART Report Released Date/Time: Oct 21, 2023 02:15 PM Reporting Lab: [facility] [place] [facility] [address] [facility] [address] Performing Lab: [facility] [place] [facility] [address] [facility] [address] [facility] [place] [facility] Vital Signs Combined list of inpatient [...] [facility] [place] Out[facility] En[facility] [id number] 10/11 [facility] En[facility] [id number] 10/11 [facility] En[facility] [id number] 10/14 [facility] En[facility] [id number] 10/14 [facility] OFFICE O/P NEW MOD 45 MIN [id number] Diagnos is: ICD-10- CM 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, unspeci MARILUZ Grider 10/20 [facility] [id number] Diagnos is: ICD-10- CM E66.09 Other obesity due to excess calorie s MANEKAS,DI NA L 11/17 [facility] En[facility] [id number] 11/25 [facility] [id number] Diagnos is: ICD-10- CM E66.09 Other obesity due to excess calorie s MANEKAS,DI NA L 12/13 [facility] En[facility] [id number] 01/10 [facility] En[facility] [id number] Diagnos is: ICD-10- CM E66.09 Other obesity due to excess calorie s MANEKAS,DI NA L 01/13 [facility] En[facility] [id number] 02/20 [facility] [id number] 1. Diagnos is: ICD-10- CM E66.09 Other obesity due to excess calorie s MANEKAS,DI NA L 02/20 [facility] En[facility] [id number] SARAH GARCIA ISTOPHER E 02/23 [facility] En[facility] [id number] Diagnos is: ICD-10- CM E66.09 Other obesity due to excess calorie s MANEKAS,DI NA L 03/13 [facility] En[facility] [id number] 03/27 [facility] En[facility] [id number] Diagnos is: ICD-10- CM E66.09 Other obesity due to excess calorie s MANEKAS,DI NA L 04/14 [facility] [id number] 05/02 [facility] En[facility] [id number] 11/08 [facility] Social History Combined list of available smoking, tobacco, and other social 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 Social History Type Response Date Comment Sourc e Tobacco smoking status NHIS [facility] NEVER USED 10[facility]2023 [facility]
[2025-01-16 14:34] VITALS: BP 108/72; PULSE 86; RESP 18; O2SAT 96; BMI 40.3
--- NOTE | 2025-01-16 14:34 | A.OFFPC_ITS ---
Vital Signs 01/16/25 14:34 Height 6 ft Weight 297 lb BMI 40.3 BP 108/72 Blood Pressure Location Lt brachial Position Sitting Respiration 18 Pulse 86 Pulse Source Pulse Oximeter Pulse Oximetry (%) 96 Oxygen Delivery Method Room Air Intake Visit Reasons: 4 months f/up - see comments Allergies No Known Allergies Allergy (Verified 01/16/25 14:34) Medication List - Last Reconciled 01/16/25 by Gabby Kelly MD allopurinol 300 mg PO DAILY amlodipine 5 mg PO DAILY aripiprazole 10 mg PO BEDTIME aspirin (Erick Low Dose Aspirin) 81 mg PO DAILY 90 days atorvastatin 20 mg PO DAILY 90 days baclofen 20 mg PO QID 30 days [bath tub mount As directed] blood sugar diagnostic (SGB Test strips) Test blood sugar once a day bupropion HCl XL 300 mg PO QAM duloxetine 60 mg PO BEDTIME flash glucose scanning reader ([employer] Sonido 2 [place]) As directed flash glucose sensor (Sight[employer]ix Sonido 2 Sensor kit) As directed Lantus Solostar U-100 Insulin (insulin glargine) 90 units (0.9 mL) subcut QPM 90 days NS losartan 100 mg PO DAILY pen needle, diabetic (AboutTime Pen Needle) As directed penicillin V potassium 250 mg PO BID 90 days pioglitazone 15 mg PO DAILY potassium citrate ER 20 mEq (2 x 10 mEq (1,080 mg)) PO BID 90 days Shower Chair Use As directed spironolacton-hydrochlorothiaz 25-25 mg 1 tab PO DAILY tirzepatide (weight loss) 5 mg (0.5 mL) subcut QWEEK 90 days trazodone 100 mg PO BEDTIME walker Use As directed Tobacco use date assessed: 09/15/24 Dental Screening Dental Screen Date: 09/15/24 HPI 4 months f/up - see comments HPI Details - The patient is a 59-year-old male pres enting for follow-up appointment ongoing care His blood pressure has been running low. - The patient has been experiencing occa sional dizziness upon standing, which resolves quickly. The dizziness was first observed in the context of low blood pressure readings. - The patient?s blood pressure was noted to be 108 mmHg, described as low, especially in the context of diagnosed essential hypertension. I am stopping his amlodipine and patient will start monitoring his blood pressure at home. He has appointment with Nephrology coming up in February - The patient has been under the care of Dr. Virgen for both hypertension and kidney function management. - The patient's insulin intake has varie d significantly, with doses ranging from 20 to 40 units per day based on self-monitored blood glucose patterns. Hemoglobin A1c is 5.3, I am stopping his pioglitazone he is to continue monitoring his sugar at home and continued taking long-acting insulin once a day - The patient acknowledged fluctuations in weight with recent readings indicating a decrease from previous figures; no specific impact or symptoms related to weight changes were detailed. - The patient reported improved mobility after a recent period of compromised mobility, initially experiencing difficulty getting out of bed. He is not able to take care of himself able to bathe and dress himself and is walking more steady He is on potassium supplement through Urology to prevent kidney stones, recent labs shows normal potassium level Taking the lb 5 mg however weight has been steady Medical History: - Essential 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 - Chronic Kidney Disease with stable kid saima function - History of Kidney Stones - Type 2 Diabetes Mellitus, currently ma naged with insulin and previously with pioglitazone - Cellulitis, managed with prophylactic penicillin through Infectious Disease - Chronic Pain managed with occasional b aclofen and pain management interventions - Gout - Depression and Anxiety, managed with W ellbutrin and Duloxetine to Psychiatry - Insomnia, previously addressed with tr azodone no longer taking - Dyslipidemia Medications - Amlodipine: For management of hyperten padmini. - Loratadine 100 mg: Indication not spec ified. - Pioglitazone 15 mg: Previously for Typ e 2 Diabetes Mellitus control, recently discontinued. - Penicillin: Prophylactic for celluliti s. - Potassium supplements: Recommended by urologist, possibly for addressing side effects related to kidney stones or medications. - Spironolactone: For fluid management a nd potassium balance. - Hydrochlorothiazide: For diuretic and antihypertensive purposes. - Allopurinol 300 mg: For management of nodular gout. - Abilify 10 mg: For psychiatric managem ent. - Atorvastatin 20 mg: For cholesterol ma nagement. - Wellbutrin 300 mg: For depression. - Duloxetine 60 mg: For anxiety and depr ession. - Losartan 100 mg: For hypertension [place]. - Baclofen: Used occasionally for pain m anagement. Problem List - Essential 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 - Chronic Kidney Disease - Type 2 Diabetes Mellitus - recurrent Cellulitis lower extremity - Gout - Chronic Pain - Depression - Insomnia - Dyslipidemia - morbid obesity Diagnostic results - Labs showing creatinine level at 1.61 (compared to previous 1.60 in October and 1.71 in April last year). - Kidney filtration rate of 44, stable w ithin the 40s to 50s range. - Glycated Hemoglobin (A1c) at 5.3%. - Electrolytes are stable with potassium levels acceptable despite supplementation. [place] [facility] - Dr. Garsia for kidney and blood press ure management - psychiatry - infectious disease - pain management Patient Instructions - Start checking your blood pressure at home, and bring the monitor along with records to the next visit. - Hold off on taking amlodipine for now due to low blood pressure readings. - Consistently insulin - Stop taking pioglitazone as part of di abetes management. - Avoid trazodone and minimize medicatio n intake to reduce stress on the kidneys. Review of Systems General: No fever no chills neurological: No headaches ear nose throat: No sore throat no hearing difficulty no ear pain cardiovascular: No syncope, no chest pain, no palpitations gastrointestinal: No nausea vomiting or diarrhea endocrine: No polyuria polydipsia no heat intolerance genitourinary: No dysuria skin: No new complaints Physical Exam general: No acute distress HEENT: No acute findings neck: Supple respiratory system: Able to talk in full sentences, no audible wheeze no stridor cardiovascular: S1-S2 RRR gastrointestinal: No pain extremities: No new findings SENIOR MARKETING MANAGER: Alert awake oriented x3 motor sensory intact skin: Normal turgor PFSH Medical History Peripheral neuropathy Obstructive sleep apnea Restless legs syndrome (RLS) Obstructive sleep apnea Chronic pain syndrome Ureteral calculus Fatty liver Gout Kidney stones Depression, major, recurrent Lipid disorder 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, essential alf (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 Diabetes 1.5, managed as type 1 Complex regional pain syndrome of both lower extremities Diabetic peripheral neuropathy Spondylosis of lumbar region without myelopathy or radiculopathy Surgical History S/P placement of nerve stimulator Hx of lithotripsy Hx of colonoscopy (~11/10/16) Family History Other Mental health disorder Social History Housing: Condominium Alcohol intake: never Patient Tobacco Use Status: Never used Tobacco e-Cigarette/Vaping Use: Never Used Second Hand Smoke Exposure: No service: No Current occupational status: disabled Cognitive needs: No Hearing needs: No Vision needs: Yes Questionnaire Thrive Questionnaire Date Thrive assessed: 01/16/25 I am a: Patient What is your living situation today?: I have a steady place to live Within the past 12 months, did the food you bought not last and you didn't have the money to get more?: Never true Within the past 12 months, did you worry whether your food would run out before you got money to buy more?: Never true Do you have trouble paying for medicines?: No Do you have trouble getting transportation to medical appointments?: No Do you have trouble paying your heating and electricity bill?: No Do you have trouble taking care of your child, family member or friend?: I choose not to answer this question Do you have trouble with day-to-day activities such as bathing, preparing meals, shopping, managing finances, etc.?: No Are you currently unemployed and looking for a job?: No Are you interested in more education?: No Please select the resources that you would like help with: None Currently or been in a relationship where the following occur: No concerns reported THRIVE Score: 0 CRISTOBAL-7 AMB Questionnaire CRISTOBAL-7 Date CRISTOBAL - 7 assessed: 09/15/24 Source: Developed by Drs. Ken Padilla, Vandana Magallon, Janusz Barlow and colleagues, with an educational nick from [employer]. Physical exam (Primary Care) Vital Signs: Last Vital Signs Pulse 86 01/16/25 14:34 Resp 18 01/16/25 14:34 BP 108/72 01/16/25 14:34 Pulse Ox 96 01/16/25 14:34 Oxygen Delivery Method Room Air 01/16/25 14:34 BMI result Body Mass Index 40.3 Tobacco/Smoking Status: Tobacco use Status Tobacco use date assessed 09/15/24 01/16/25 14:37 Patient Tobacco Use Status Never used Tobacco 01/16/25 14:37 e-Cigarette/Vaping Use Never Used 01/16/25 14:37 Thrive Assessment: Date of Thrive Assessment Date Thrive assessed 01/16/25 01/16/25 14:37 Currently or been in a relationship where the following occur: No concerns reported Coding Level of Care Code Est Pt Level 5 (21577) Diagnoses Diabetes 1.5, managed as type 1 E13.9 Diabetic peripheral neuropathy E11.42 alf (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 Z79.4 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, essential I10 Lipid disorder E78.9 Moderate episode of recurrent major depressive disorder F33.1 Active/Remission status: currently active Major depression episode severity: moderate Chronic gout without tophus, unspecified cause, unspecified site M1A.[id number] Chronicity: chronic Gout etiology: unspecified cause Gout site: unspecified site Presence of tophus: without tophus Elevated serum creatinine R79.89 Diabetic nephropathy associated with diabetes mellitus due to underlying condition E08.21 Diabetes mellitus type: due to underlying condition Morbid obesity due to excess calories E66.01 Time Spent (min) 40 Comment Reviewing chart/labs/hbrk-io-hclq/coordination of care Assessment & Plan Assessment & Plan (1) Diabetes 1.5, managed as type 1: Code(s): E13.9 - Other specified diabetes mellitus without complications Category: Medical (2) Diabetic peripheral neuropathy: Code(s): E11.42 - Type 2 diabetes mellitus with diabetic polyneuropathy Category: Medical (3) buttermaker helper (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: Code(s): Z79.4 - buttermaker helper (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 Category: Medical (4) 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, essential: Code(s): I10 - Essential (primary) hypertension Category: Medical (5) Lipid disorder: Code(s): E78.9 - Disorder of lipoprotein metabolism, unspecified Category: Medical (6) Depression, major, recurrent: Code(s): F33.9 - Major depressive disorder, recurrent, unspecified Category: Medical Qualifiers: Active/Remission status: currently active Major depression episode severity: moderate Qualified Code(s): F33.1 - Major depressive disorder, recurrent, moderate (7) Gout: Code(s): M10.9 - Gout, unspecified Category: Medical Qualifiers: Chronicity: chronic Gout etiology: unspecified cause Gout site: unspecified site Presence of tophus: without tophus Qualified Code(s): M1A.9XX0 - Chronic gout, unspecified, without tophus (tophi) (8) Elevated serum creatinine: Code(s): R79.89 - Other specified abnormal findings of blood chemistry Category: Medical (9) Diabetic nephropathy: Code(s): E11.21 - Type 2 diabetes mellitus with diabetic nephropathy Category: Medical Qualifiers: Diabetes mellitus type: due to underlying condition Qualified Code(s): E08.21 - Diabetes mellitus due to underlying condition with diabetic nephropathy (10) Morbid obesity due to excess calories: Code(s): E66.01 - Morbid (severe) obesity due to excess calories Category: Medical Plan - The patient is a 59-year-old male presenting for follow-up appointment ongoing care Patient has history of diabetic nephropathy, neuropathy, obstructive sleep apnea, hypertension, chronic depression, chronic back pain, gout, lipid disorder, back spasms, recurrent cellulitis lower extremity History kidney stones His blood pressure has been running low. - The patient has been experiencing occasional dizziness upon standing, which resolves quickly. The dizziness was first observed in the context of low blood pressure readings. - The patient?s blood pressure was noted to be 108 mmHg, described as low, especially in the context of diagnosed essential hypertension. I am stopping his amlodipine and patient will start monitoring his blood pressu re at home. He has appointment with Nephrology coming up in February - The patient has been under the care of Dr. Virgen for both hypertension and kidney function management. - The patient's insulin intake has varied significantly, with doses ranging from 20 to 40 units per day based on self-monitored blood glucose patterns. Hemoglobin A1c is 5.3, I am stopping his pioglitazone he is to continue monitoring his sugar at home and continued taking long-acting insulin once a day - The patient acknowledged fluctuations in weight with recent readings indicating a decrease from previous figures; no specific impact or symptoms related to weight changes were detailed. - The patient reported improved mobility after a recent period of compromised mobility, initially experiencing difficulty getting out of bed. He is not able to take care of himself able to bathe and dress himself and is walking more steady He is on potassium supplement through Urology to prevent kidney stones, recent labs shows normal potassium level Taking the lb 5 mg however weight has been steady Medical History: - Essential 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 - Chronic Kidney Disease with stable kidney function - History of Kidney Stones - Type 2 Diabetes Mellitus, currently managed with insulin and previously with pioglitazone - Cellulitis, managed with prophylactic penicillin through Infectious Disease - Chronic Pain managed with occasional baclofen and pain management interventions - Gout - Depression and Anxiety, managed with Wellbutrin and Duloxetine to Psychiatry - Insomnia, previously addressed with trazodone no longer taking - Dyslipidemia Medications - Amlodipine: For management of hypertension. - Loratadine 100 mg: Indication not specified. - Pioglitazone 15 mg: Previously for Type 2 Diabetes Mellitus control, recently discontinued. - Penicillin: Prophylactic for cellulitis. - Potassium supplements: Recommended by urologist, possibly for addressing side effects related to kidney stones or medications. - Spironolactone: For fluid management and potassium balance. - Hydrochlorothiazide: For diuretic and antihypertensive purposes. - Allopurinol 300 mg: For management of nodular gout. - Abilify 10 mg: For psychiatric management. - Atorvastatin 20 mg: For cholesterol management. - Wellbutrin 300 mg: For depression. - Duloxetine 60 mg: For anxiety and depression. - Losartan 100 mg: For hypertension management. - Baclofen: Used occasionally for pain management. Problem List - Essential 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 - Chronic Kidney Disease - Type 2 Diabetes Mellitus - recurrent Cellulitis lower extremity - Gout - Chronic Pain - Depression - Insomnia - Dyslipidemia - morbid obesity Diagnostic results - Labs showing creatinine level at 1.61 (compared to previous 1.60 in October and 1.71 in April last year). - Kidney filtration rate of 44, stable within the 40s to 50s range. - Glycated Hemoglobin (A1c) at 5.3%. - Electrolytes are stable with potassium levels acceptable despite supplementation. [place] [facility] - Dr. Garsia for kidney and blood pressure management - psychiatry - infectious disease - pain management Patient Instructions - Start checking your blood pressure at home, and bring the monitor along with records to the next visit. - Hold off on taking amlodipine for now due to low blood pressure readings. - Consistently insulin - Stop taking pioglitazone as part of diabetes management. - Avoid trazodone and minimize medication intake to reduce stress on the kidneys. Medications: Discontinued pioglitazone FIRST DOSE NOW Discontinued Reason: Doctor's Order 15 mg PO DAILY 90 tabs 1RF
--- OUTSIDE RECORDS SUMMARY | 2025-01-16 15:46 | XMS_ITS | Clinical Summary ---
Author Organization [facility] Address [address] [place] [address] Care Team Providers Care Die Maintenance Technician Name Role Phone Gabby Kelly Primary Care Provider [phone] Allergies No known active allergies Medications amLODIPine [...] 03/30/2024, 05/2023, 03/09/2022, Additional history exists Insurance [facility] Care Teams Die Maintenance Technician Relationship Specialty Start Date End Date Robin, Gabby [facility] ORALIA Wallace [phone] PCP - General Internal Medicine 08/15/24
--- OUTSIDE RECORDS SUMMARY | 2025-01-16 15:46 | XMS_ITS | Patient Health Record ---
Author Organization [facility] Tavon brittany [place] Address [address] [facility] [address] Care Team Providers Care Chief Privacy Officer Name Role Phone Robin Pierre Primary Care Provider Unavailabl e Black, Stephanie Unavailable [phone] Reason For Referral No Information Medications Medication [...] Problem Acquired hammer toe of right foot ([id number] ) Other hammer toe(s) (acquired), right foot (M20.41) Active confirmed Problem Acquired hammer toe of left foot ([id number] ) Other hammer toe(s) (acquired), left foot (M20.42) Active confirmed Problem Polyneuropathy due to type 2 diabetes mellitus (573504475) Type 2 diabetes mellitus with diabetic polyneuropathy (E11.42) Active confirmed Plan Of Treatment Pending Test Test Name Order Date X ray : Foot, right 3V 09/16/2017 [id number] NAIL, 1-5 09/05/2018 [id number] NAIL, 1-5 03/18/2017 [id number] NAIL, 1-5 09/16/2017 [id number] Plate 09/05/2018 [id number] SKIN LESIONS, 2 TO 4 09/06/19 19 [id number] NAIL(S) 09/05/2018 [id number] NAIL(S) 09/16/2017 [id number] NAIL(S) 03/18/2017 Medical (General) History Medical History History ICD Code Anxiety Back,Hip,and Knee pain Depression Diabetic Gout High blood pressure Numbness Surgical History Surgery Date(Month/Year) Hospitalization History Reason Date(Month/Year) [facility] 01/[facility]/17 [facility] [place] [facility] - recurrent cellulitis 07/2018
--- OUTSIDE RECORDS SUMMARY | 2025-01-16 15:46 | XMS_ITS | Clinical Summary ---
Author Organization [facility] Address [address] [facility] [address] [place] [address] Phone Care Team Providers Care Ear Flap Binder Name Role Phone Gabby Kelly MD Primary Care Provider [phone] Allergies No known active allergies Medications Multiple Vitamins-[place] als (MULTIVITAMIN ADULT EXTRA C PO) Take [...] Influenza Vaccine (#1) 2025 Insurance Medicaid [place] [facility] [place] [facility] Care Teams Ear Flap Binder Relationship Specialty Start Date End Date Gabby Kelly MD [facility] [place] [address] PCP - General 07/08/20
== END 2025-01-16 15:35 | disposition home or self-care (01) ==
LOC: HO.HMCC 14:32
PROVIDERS: PCP Internal Medicine; Visit Provider Internal Medicine
DX: E11.42 Type 2 diabetes mellitus with diabetic polyneuropathy (principal); Z79.4 Long term (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; E66.01 Morbid (severe) obesity due to excess calories; Z68.41 Body mass index [BMI] 40.0-44.9, adult; F33.1 Major depressive disorder, recurrent, moderate; I10 Essential (primary) hypertension; E78.9 Disorder of lipoprotein metabolism, unspecified; M1A.9XX0 Chronic gout, unspecified, without tophus (tophi); R79.89 Other specified abnormal findings of blood chemistry

== ENCOUNTER 2025-02-01 13:09 | Outpatient (AMB) | payer OTHER, SELFPAY ==
--- OUTSIDE RECORDS SUMMARY | 2024-12-26 01:50 | XMS_ITS | Continuity of Care Document ---
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 Source INFLUENZA, UNSPECIFIED FORMULATION 2022 88 complet ed HISTORICA L INFORMATI ON - FROM OTHER REGISTRY, [facility] [place] COVID-19 (MODERNA), MRNA, LNP-S, PF, 100 MCG/0.5ML DOSE OR 50 MCG/0.25ML DOSE 2020 207 complet ed Booster for Series, HISTORICA L INFORMATI ON - FROM OTHER PROVIDER, [facility] COVID-19 (PFIZER), MRNA, LNP-S, PF, 30 MCG/0.3 ML DOSE 2 2020 208 complet ed HISTORICA L INFORMATI ON - [facility] COVID-19 (PFIZER), MRNA, LNP-S, PF, 30 MCG/0.3 ML DOSE 1 2020 208 complet ed HISTORICA L INFORMATI ON - [facility] Results Combined list of recent chemistry, [...] Oct 21, 2023 02:15 PM Reporting Lab: [address] [address] Performing Lab: [address] [address] [facility] HEPATITI S B SURFACE ANTIBODY (HBsAb)- WH HEPATITIS B VIRUS SURFACE AB [PRESENCE] IN SERUM BY IMMUNOASSA Y Non Reactive 10/20 Specimen Type: SERUM No comment entered. Ordering Provider: Pablo STEWART Report Released Date/Time: Oct 21, 2023 02:15 PM Reporting Lab: [address] [address] Performing Lab: [facility] [address] [facility] [address] [facility] HEPATITI S C ANTIBODY (HCV)-AR C HEPATITIS C VIRUS AB [PRESENCE] IN SERUM NON-REAC TIVE 10/20 Specimen Type: SERUM Comment: Hep C Ab: No HCV antibody detected. If recent infection is suspected or other evidence suggests HCV infection, consider HCV nucleic acid testing Ordering Provider: Pablo STEWART Report Released Date/Time: Oct 21, 2023 02:15 PM Reporting Lab: [facility] [address] [address] Performing Lab: [facility] [address] [address] [facility] BASIC METABOLI C PANEL (fasting ) UREA NITROGEN [MASS/VOLU ME] IN SERUM OR PLASMA 28 mg/dL 7 - 25 10/20 H Specimen Type: SERUM No comment entered. Ordering Provider: Pablo STEWART Report Released Date/Time: Oct 21, 2023 02:15 PM Reporting Lab: [facility] [address] [address] Performing Lab: [facility] [address] [address] [facility] BASIC METABOLI C PANEL (fasting ) GLUCOSE [MASS/VOLU ME] IN SERUM OR PLASMA 147 mg/dL 65 - 100 10/20 H Specimen Type: SERUM No comment entered. Ordering Provider: Pablo STEWART Report Released Date/Time: Oct 21, 2023 02:15 PM Reporting Lab: [facility] [address] [address] Performing Lab: [facility] [address] [address] [facility] BASIC METABOLI C PANEL (fasting ) SODIUM [MOLES/VOL UME] IN SERUM OR PLASMA 139 mmol/L 135 - 145 10/20 Specimen Type: SERUM No comment entered. Ordering Provider: Pablo STEWART Report Released Date/Time: Oct 21, 2023 02:15 PM Reporting Lab: [facility] [place] [facility] [address] [address] Performing Lab: [facility] [place] [address] [address] [facility] BASIC METABOLI C PANEL (fasting ) POTASSIUM [MOLES/VOL UME] IN SERUM OR PLASMA 4.4 mmol/L 3.5 - 5.0 10/20 Specimen Type: SERUM No comment entered. Ordering Provider: Pablo STEWART Report Released Date/Time: Oct 21, 2023 02:15 PM Reporting Lab: [facility] [place] [address] [address] Performing Lab: [facility] [place] [address] [address] [facility] [facility] BASIC METABOLI C PANEL (fasting ) CHLORIDE [MOLES/VOL UME] IN SERUM OR PLASMA 103 mmol/L 100 - 110 10/20 Specimen Type: SERUM No comment entered. Ordering Provider: Pablo STEWART Report Released Date/Time: Oct 21, 2023 02:15 PM Reporting Lab: [facility] [place] [address] [address] Performing Lab: [facility] [place] [address] [address] [facility] BASIC METABOLI C PANEL (fasting ) CARBON DIOXIDE, TOTAL [MOLES/VOL UME] IN SERUM OR PLASMA 27 meq/L 20 - 30 10/20 Specimen Type: SERUM No comment entered. Ordering Provider: Pablo STEWART Report Released Date/Time: Oct 21, 2023 02:15 PM Reporting Lab: [facility] [place] [address] [address] Performing Lab: [facility] [place] [address] [place] [address] [facility] [facility] BASIC METABOLI C PANEL (fasting ) CREATININE [MASS/VOLU ME] IN SERUM OR PLASMA 1.74 mg/dL 0.50 - 1.40 10/20 H Specimen Type: SERUM No comment entered. Ordering Provider: Pablo STEWART Report Released Date/Time: Oct 21, 2023 02:15 PM Reporting Lab: [facility] [place] [address] [address] Performing Lab: [facility] [place] [address] [address] [facility] [place] BASIC METABOLI C PANEL (fasting ) GLOMERULAR FILTRATION RATE/1.73 SQ M.PREDICTE D [VOLUME RATE/AREA] IN SERUM, PLASMA OR BLOOD BY CREATININE -BASED FORMULA (CKD-EPI 2020) 45 mL/min 60 10/20 L Specimen Type: SERUM No comment entered. Ordering Provider: Pablo STEWART Report Released Date/Time: Oct 21, 2023 02:15 PM Reporting Lab: [facility] [place] [address] [address] Performing Lab: [facility] [place] [address] [address] [facility] [place] [facility] LIVER FUNCTION PROTEIN [MASS/VOLU ME] IN SERUM OR PLASMA 6.7 g/dL 6.0 - 8.3 10/20 Specimen Type: SERUM No comment entered. Ordering Provider: Pablo STEWART Report Released Date/Time: Oct 21, 2023 02:15 PM Reporting Lab: [facility] [place] [address] [address] Performing Lab: [facility] [place] [address] [address] [facility] [facility] LIVER FUNCTION ALBUMIN [MASS/VOLU ME] IN SERUM OR PLASMA 4.1 g/dL 3.5 - 5.0 10/20 Specimen Type: SERUM No comment entered. Ordering Provider: Pablo STEWART Report Released Date/Time: Oct 21, 2023 02:15 PM Reporting Lab: [facility] [place] [facility] [address] [address] Performing Lab: [facility] [place] [facility] [address] [address] [facility] LIVER FUNCTION ALKALINE PHOSPHATAS E [ENZYMATIC ACTIVITY/V OLUME] IN SERUM OR PLASMA 84 U/L 40 - 150 10/20 Specimen Type: SERUM No comment entered. Ordering Provider: Pablo STEWART Report Released Date/Time: Oct 21, 2023 02:15 PM Reporting Lab: [facility] [place] [facility] [address] [address] Performing Lab: [facility] [place] [facility] [address] [address] [facility] LIVER FUNCTION ASPARTATE AMINOTRANS FERASE [ENZYMATIC ACTIVITY/V OLUME] IN SERUM OR PLASMA 19 U/L 5 - 34 10/20 Specimen Type: SERUM No comment entered. Ordering Provider: Pablo STEWART Report Released Date/Time: Oct 21, 2023 02:15 PM Reporting Lab: [facility] [place] [facility] [address] [address] Performing Lab: [facility] [place] [facility] [address] [address] [facility] LIVER FUNCTION ALANINE AMINOTRANS FERASE [ENZYMATIC ACTIVITY/V OLUME] IN SERUM OR PLASMA 28 U/L 10/20 Specimen Type: SERUM No comment entered. Ordering Provider: Pablo STEWART Report Released Date/Time: Oct 21, 2023 02:15 PM Reporting Lab: [facility] [place] [facility] [address] [address] Performing Lab: [facility] [place] [facility] [address] [address] [facility] LIVER FUNCTION BILIRUBIN. TOTAL [MASS/VOLU ME] IN SERUM OR PLASMA 0.6 mg/dL 0.2 - 1.2 10/20 Specimen Type: SERUM No comment entered. Ordering Provider: Pablo STEWART Report Released Date/Time: Oct 21, 2023 02:15 PM Reporting Lab: [facility] [place] [address] [address] Performing Lab: [facility] [place] [address] [address] [facility] LIPID PANEL FASTING CHOLESTERO L [MASS/VOLU ME] IN SERUM OR PLASMA 84 mg/dL 10/20 Specimen Type: SERUM No comment entered. Ordering Provider: Pablo STEWART Report Released Date/Time: Oct 21, 2023 02:15 PM Reporting Lab: [facility] [place] [address] [address] Performing Lab: [facility] [place] [address] [address] [facility] [place] [facility] LIPID PANEL FASTING TRIGLYCERI DE [MASS/VOLU ME] IN SERUM OR PLASMA 87 mg/dL 0 - 150 10/20 Specimen Type: SERUM No comment entered. Ordering Provider: Pablo STEWART Report Released Date/Time: Oct 21, 2023 02:15 PM Reporting Lab: [facility] [place] [address] [address] Performing Lab: [facility] [place] [address] [address] [facility] LIPID PANEL FASTING CHOLESTERO L IN LDL [MASS/VOLU ME] IN SERUM OR PLASMA BY CALCULATIO N 30 mg/dL 0 - 129 10/20 Specimen Type: SERUM No comment entered. Ordering Provider: Pablo STEWART Report Released Date/Time: Oct 21, 2023 02:15 PM Reporting Lab: [facility] [place] [address] [address] Performing Lab: [facility] [address] [address] [facility] LIPID PANEL FASTING CHOLESTERO L.TOTAL/CH OLESTEROL IN HDL [MASS RATIO] IN SERUM OR PLASMA 2.3 10/20 Specimen Type: SERUM No comment entered. Ordering Provider: Pablo STEWART Report Released Date/Time: Oct 21, 2023 02:15 PM Reporting Lab: [facility] [address] [address] Performing Lab: [facility]OSPITALN [facility] [address] [address] [facility] LIPID PANEL FASTING CHOLESTERO L IN HDL [MASS/VOLU ME] IN SERUM OR PLASMA 37 mg/dL 40 - 60 10/20 L Specimen Type: SERUM No comment entered. Ordering Provider: Pablo STEWART Report Released Date/Time: Oct 21, 2023 02:15 PM Reporting Lab: [facility] [address] [address] Performing Lab: [facility] TRN [facility]ITALUSE[address] [address] [facility] HEMOGLOB IN A1C PANEL HEMOGLOBIN A1C/HEMOGL [...] Oct 21, 2023 02:15 PM Reporting Lab: [address] [address] Performing Lab: [address] [address] [facility] URINALYS IS COLOR OF URINE Yellow 10/20 Specimen Type: URINE Comment: If Glucose = >500 and Ketones are positive, please alert the Physician. Ordering Provider: Pablo STEWART Report Released Date/Time: Oct 21, 2023 02:15 PM Reporting Lab: [facility] [place] [facility] [address] [address] Performing Lab: [facility] [place] [facility] [address] [address] [facility] URINALYS IS APPEARANCE OF URINE Clear 10/20 Specimen Type: URINE Comment: If Glucose = >500 and Ketones are positive, please alert the Physician. Ordering Provider: Pablo STEWART Report Released Date/Time: Oct 21, 2023 02:15 PM Reporting Lab: [facility] [place] [address] [address] Performing Lab: [facility] [place] [facility] [address] [address] [facility] URINALYS IS GLUCOSE [MASS/VOLU ME] IN URINE NEGATIVE mg/dL 10/20 Specimen Type: URINE Comment: If Glucose = >500 and Ketones are positive, please alert the Physician. Ordering Provider: Pablo STEWART Report Released Date/Time: Oct 21, 2023 02:15 PM Reporting Lab: [facility] [place] [facility] [address] [address] Performing Lab: [facility] [place] [facility] [address] [address] [facility] URINALYS IS KETONES [MASS/VOLU ME] IN URINE BY TEST STRIP NEGATIVE mg/dL 10/20 Specimen Type: URINE Comment: If Glucose = >500 and Ketones are positive, please alert the Physician. Ordering Provider: Pablo STEWART Report Released Date/Time: Oct 21, 2023 02:15 PM Reporting Lab: [facility] [place] [facility] [address] [address] Performing Lab: [facility] [place] [facility] [address] [address] [facility] URINALYS IS ERYTHROCYT ES [PRESENCE] IN URINE SEDIMENT BY LIGHT MICROSCOPY NEGATIVE mg/dL 10/20 Specimen Type: URINE Comment: If Glucose = >500 and Ketones are positive, please alert the Physician. Ordering Provider: Pablo STEWART Report Released Date/Time: Oct 21, 2023 02:15 PM Reporting Lab: [facility] [place] [facility] [address] [address] Performing Lab: [facility] [place] [facility] [address] [address] [facility] [facility] URINALYS IS PROTEIN [MASS/VOLU ME] IN URINE BY TEST STRIP 20 mg/dL 10/20 Specimen Type: URINE Comment: If Glucose = >500 and Ketones are positive, please alert the Physician. Ordering Provider: Pablo STEWART Report Released Date/Time: Oct 21, 2023 02:15 PM Reporting Lab: [facility] [place] [facility] [address] [address] Performing Lab: [facility] [place] [facility] [address] [address] [facility] [facility] URINALYS IS NITRITE [PRESENCE] IN URINE NEGATIVE mg/dL 10/20 Specimen Type: URINE Comment: If Glucose = >500 and Ketones are positive, please alert the Physician. Ordering Provider: Pablo STEWART Report Released Date/Time: Oct 21, 2023 02:15 PM Reporting Lab: [facility] [place] [facility] [address] [address] Performing Lab: [facility] [place] [facility] [address] [address] [facility] URINALYS IS BILIRUBIN. TOTAL [PRESENCE] IN URINE NEGATIVE mg/dL 10/20 Specimen Type: URINE Comment: If Glucose = >500 and Ketones are positive, please alert the Physician. Ordering Provider: Pablo STEWART Report Released Date/Time: Oct 21, 2023 02:15 PM Reporting Lab: [facility]ITALN [facility]ITAL[facility] [address] [address] Performing Lab: [facility] [address] [facility]ITAL[facility] URINALYS IS SPECIFIC GRAVITY OF URINE BY REFRACTOME TRY 1.024 1.016 - 1.022 10/20 H Specimen Type: URINE Comment: If Glucose = >500 and Ketones are positive, please alert the Physician. Ordering Provider: Pablo STEWART Report Released Date/Time: Oct 21, 2023 02:15 PM Reporting Lab: [facility]ITALUSE[address] [address] Performing Lab: [facility]ITALN [facility]ITALUSE[address] [address] [facility] URINALYS IS PH OF URINE BY TEST STRIP 6.0 5.0 - 9.0 10/20 Specimen Type: URINE Comment: If Glucose = >500 and Ketones are positive, please alert the Physician. Ordering Provider: Pablo STEWART Report Released Date/Time: Oct 21, 2023 02:15 PM Reporting Lab: [facility]ITALUSE[address] [address] Performing Lab: [facility]ENTERTRN [facility]ITALUSE[address] [address] [facility]ITAL[facility] URINALYS IS UROBILINOG EN [MASS/VOLU ME] IN URINE BY TEST STRIP <2.0mg/d L <2.0 - 2.0 10/20 Specimen Type: URINE Comment: If Glucose = >500 and Ketones are positive, please alert the Physician. Ordering Provider: Pablo STEWART Report Released Date/Time: Oct 21, 2023 02:15 PM Reporting Lab: [facility] [place] [facility] [address] [address] Performing Lab: [facility] [place] [facility] [address] [address] [facility] URINALYS IS LEUKOCYTE ESTERASE [PRESENCE] IN URINE BY TEST STRIP NEGATIVE 10/20 Specimen Type: URINE Comment: If Glucose = >500 and Ketones are positive, please alert the Physician. Ordering Provider: Pablo STEWART Report Released Date/Time: Oct 21, 2023 02:15 PM Reporting Lab: [facility] [place] [facility] [address] [address] Performing Lab: [facility] [place] [facility] [address] [address] [facility] MICROALB UMIN CREATINI NE RATIO PANEL MICROALBUM IN/CREATIN INE [MASS RATIO] IN URINE 6.2 mg/g 0 - 29.9 10/20 Specimen Type: URINE No comment entered. Ordering Provider: Pablo STEWART Report Released Date/Time: Oct 21, 2023 02:15 PM Reporting Lab: [facility] [place] [facility] [address] [address] Performing Lab: [facility] [place] [facility] [address] [address] [facility] MICROALB UMIN CREATINI NE RATIO PANEL MICROALBUM IN [MASS/VOLU ME] IN URINE 1.5 mg/dL 10/20 Specimen Type: URINE No comment entered. Ordering Provider: Pablo STEWART Report Released Date/Time: Oct 21, 2023 02:15 PM Reporting Lab: [facility] [place] [facility] [address] [address] Performing Lab: [facility] [place] [facility] [address] [address] [facility] MICROALB UMIN CREATINI NE RATIO PANEL CREATININE [MASS/VOLU ME] IN URINE 240.98 mg/dL 10/20 Specimen Type: URINE No comment entered. Ordering Provider: Pablo STEWART Report Released Date/Time: Oct 21, 2023 02:15 PM Reporting Lab: [facility] [place] [address] [address] Performing Lab: [facility] [place] [facility] [address] [address] [facility] URIC ACID URATE [MASS/VOLU ME] IN SERUM OR PLASMA 5.4 mg/dL 3.5 - 7.2 10/20 Specimen Type: SERUM No comment entered. Ordering Provider: Pablo STEWART Report Released Date/Time: Oct 21, 2023 02:15 PM Reporting Lab: [facility] [place] [address] [address] Performing Lab: [facility] [place] [facility] [address] [address] [facility] Vital Signs Combined list of inpatient [...] [facility] En[facility] [id number] 10/11 [facility] En[facility] [id number] 10/11 [facility] En[facility] [id number] 10/14 [facility] En[facility] [id number] 10/14 [facility] OFFICE O/P NEW MOD 45 MIN [id number] Diagnos is: ICD-10- CM 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, unspeci MARILUZ Grider 10/20 [facility] [id number] Diagnos is: ICD-10- CM E66.09 Other obesity due to excess calorie s MANEKAS,DI NA L 11/17 [facility] En[facility] [id number] 11/25 [facility] [id number] Diagnos is: ICD-10- CM E66.09 Other obesity due to excess calorie s MANEKAS,DI NA L 12/13 [facility] En[facility] [id number] 01/10 [facility] [id number] Diagnos is: ICD-10- CM E66.09 Other obesity due to excess calorie s MANEKAS,DI NA L 01/13 [facility] En[facility] [id number] 02/20 [facility] En[facility] [id number] 1. Diagnos is: ICD-10- CM E66.09 Other obesity due to excess calorie s MANEKAS,DI NA L 02/20 [facility] En[facility] [id number] SARAH GARCIA ISTOPHER E 02/23 [facility] [id number] Diagnos is: ICD-10- CM E66.09 Other obesity due to excess calorie s MANEKAS,DI NA L 03/13 [facility] En[facility] [id number] 03/27 [facility] [id number] Diagnos is: ICD-10- CM E66.09 Other obesity due to excess calorie s MANEKAS,DI NA L 04/14 [facility] En[facility] [id number] 05/02 [facility] En[facility] [id number] 11/08 [facility] Social History Combined list of available smoking, tobacco, and other social 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 Social History Type Response Date Comment Sourc e Tobacco smoking status NHIS [facility] NEVER USED 10[facility]15[facility]2023 [facility] [place] [facility]
--- OUTSIDE RECORDS SUMMARY | 2025-02-01 13:12 | XMS_ITS | Patient Health Record ---
Author Organization [facility] Tavon brittany Lyndsey Address [address] [facility] [place] [address] Care Team Providers Care Community Development Manager Name Role Phone Robin Pierre Primary Care Provider Unavailabl e Black, Stephanie Unavailable [phone] Reason For Referral No Information Medications Medication [...] Problem Acquired hammer toe of right foot ([id number] ) Other hammer toe(s) (acquired), right foot (M20.41) Active confirmed Problem Acquired hammer toe of left foot ([id number] ) Other hammer toe(s) (acquired), left foot (M20.42) Active confirmed Problem Polyneuropathy due to type 2 diabetes mellitus (878805480) Type 2 diabetes mellitus with diabetic polyneuropathy (E11.42) Active confirmed Plan Of Treatment Pending Test Test Name Order Date X ray : Foot, right 3V 09/16/2017 [id number] NAIL, 1-5 09/05/2018 [id number] NAIL, 1-5 03/18/2017 [id number] NAIL, 1-5 09/16/2017 [id number] Plate 09/05/2018 [id number] SKIN LESIONS, 2 TO 4 09/06/19 19 [id number] NAIL(S) 09/05/2018 [id number] NAIL(S) 09/16/2017 [id number] NAIL(S) 03/18/2017 Medical (General) History Medical History History ICD Code Anxiety Back,Hip,and Knee pain Depression Diabetic Gout High blood pressure Numbness Surgical History Surgery Date(Month/Year) Hospitalization History Reason Date(Month/Year) [facility] [place] [facility] [place] 07/2018
--- OUTSIDE RECORDS SUMMARY | 2025-02-01 13:12 | XMS_ITS | Clinical Summary ---
Author Organization [facility] Address [address] [place] [address] Care Team Providers Care Sheltered Workshop Worker Name Role Phone Gabby Kelly Primary Care Provider [phone] Allergies No known active allergies Medications amLODIPine [...] 03/30/2024, 05/2023, 03/09/2022, Additional history exists Insurance [facility] Care Teams Sheltered Workshop Worker Relationship Specialty Start Date End Date Robin, Gabby [facility] ORALIA Wallace [phone] PCP - General Internal Medicine 08/15/24
--- OUTSIDE RECORDS SUMMARY | 2025-02-01 13:12 | XMS_ITS | Clinical Summary ---
Author Organization [facility] Address [address] [facility] [address] [place] [address] Phone Care Team Providers Care Product Marketing Programs Manager Name Role Phone Gabby Kelly MD Primary Care Provider [phone] Allergies No known active allergies Medications Multiple Vitamins-[place] als (MULTIVITAMIN ADULT EXTRA C PO) Take [...] Influenza Vaccine (#1) 2025 Insurance Medicaid [place] [facility] [place] [facility] Care Teams Product Marketing Programs Manager Relationship Specialty Start Date End Date Gabby Kelly [place] [address] PCP - General 07/08/20
[2025-02-01 13:34] VITALS: BP 124/72; PULSE 94; RESP 16; O2SAT 96; BMI 35.4
--- NOTE | 2025-02-01 13:34 | MHC.OFFWIV ---
Intake Vital Signs 02/01/25 13:34 02/01/25 14:16 02/01/25 14:17 02/01/25 14:18 Height 6 ft 4 in Weight 291 lb 4 oz BMI 35.4 BP 124/72 114/74 112/70 98/74 Blood Pressure Location Lt brachial Lt brachial Lt brachial Lt brachial Position Sitting Supine Sitting Standing Respiration 16 Pulse 94 Pulse Source Pulse Oximeter Pulse Oximetry (%) 96 Oxygen Delivery Method Room Air Intake Visit Reasons: EP Low BP 108/74, dizzy when standing Intake Note: Pt came in, ambulated (I) gait steady. C/o dizziness from lying to standing x 2 weeks. Pt appears pale, slightly tremulous. Pt stated that his brainer had decreased medication Losaratan 100mg to 50mg and his pcp had discontinued his medication Amlodipine. Pt is a/o x 3, no sob/sasha noted. Vs lying - 114/74; sitting - 112/70; standing - 98/74. Bia (CARINA) aware. Patient Tobacco Use Status: Never used Tobacco Allergies No Known Allergies Allergy (Verified 02/01/25 14:27) HPI HPI Comments History of Present Illness Details 59 y/o Male patient who presents to the walk in clinic with concerns for Low blood pressure. Reports dizziness from lying to standing for 2 weeks. Pt stated that his brainer decreased Losartan from 100mg to 50mg and his pcp has discontinued Amlodipine. Orthostatic Blood Pressure were taken today: lying down = 114/74; sitting = 112/70; and Standing = 98/74. I contacted His Proof Machine Operator Supervisor Dr. Roberson who advised to stop Losartan for now, and he will have patient f/u with him in the office soon. 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 Diabetes 1.5, managed as type 1 Complex regional pain syndrome of both lower extremities Diabetic peripheral neuropathy Spondylosis of lumbar region without myelopathy or radiculopathy Surgical History S/P placement of nerve stimulator Hx of lithotripsy Hx of colonoscopy (~11/10/16) Family History Other Mental health disorder Social History Housing: Condominium Alcohol intake: never Patient Tobacco Use Status: Never used Tobacco e-Cigarette/Vaping Use: Never Used Second Hand Smoke Exposure: No service: No Current occupational status: disabled Cognitive needs: No Hearing needs: No Vision needs: Yes Review of Systems Const All systems reviewed & are unremarkable except as noted in HPI and below Physical Exam Vital Signs: Last Vital Signs Pulse 94 02/01/25 13:34 Resp 16 02/01/25 13:34 BP 98/74 02/01/25 14:18 Pulse Ox 96 02/01/25 13:34 Oxygen Delivery Method Room Air 02/01/25 13:34 BMI result Body Mass Index 35.4 Const General: no acute distress Nutritional Appearance: obese Orientation/consciousness: patient oriented x3 Resp Effort & Inspection: normal respiratory effort Auscultation: clear to auscultation bilaterally Cardio Heart sounds: S1 normal heart sound present and S2 normal heart sound present Neuro General: patient oriented x3 Assessment & Plan Assessment & Plan (1) Orthostatic hypotension: Code(s): I95.1 - Orthostatic hypotension Plan: Per Proof Machine Operator Supervisor will Hold Losartan for now. Change positions slowly. Sleeping with the head of the bed raised. Limiting exposure to hot, humid environments. F/U with PCP and Proof Machine Operator Supervisor. Coding Level of Care Code Est Pt Level 4 (14430) Diagnoses Orthostatic hypotension I95.1 Time Spent (min) 20
[2025-02-01 14:16] VITALS: BP 114/74
[2025-02-01 14:17] VITALS: BP 112/70
[2025-02-01 14:18] VITALS: BP 98/74
== END 2025-02-01 14:52 | disposition home or self-care (01) ==
PROVIDERS: PCP Internal Medicine; Visit Provider Nurse Practitioner Family
DX: I95.1 Orthostatic hypotension (principal)

== ENCOUNTER 2025-02-12 10:57 | Outpatient (AMB) | payer OTHER, SELFPAY ==
--- OUTSIDE RECORDS SUMMARY | 2024-12-26 01:50 | XMS_ITS | Continuity of Care Document ---
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 [id number] ) Active Condition Oct 22, 2023 Entered [...] Site Reaction Lot Number CVX Code [facility] Director Status Comments Source INFLUENZA, UNSPECIFIED FORMULATION 2022 88 complet ed HISTORICA L INFORMATI ON - FROM OTHER REGISTRY, [facility] [place] COVID-19 (MODERNA), MRNA, LNP-S, PF, 100 MCG/0.5ML DOSE OR 50 MCG/0.25ML DOSE 2020 207 complet ed Booster for Series, HISTORICA L INFORMATI ON - FROM OTHER PROVIDER, [facility] COVID-19 (PFIZER), MRNA, LNP-S, PF, 30 MCG/0.3 ML DOSE 2 2020 208 complet ed HISTORICA L INFORMATI ON - [facility] COVID-19 (PFIZER), MRNA, LNP-S, PF, 30 MCG/0.3 ML DOSE 1 2020 208 complet ed HISTORICA L INFORMATI ON - [facility] Results Combined list of recent chemistry, hematology [...] Oct 21, 2023 02:15 PM Reporting Lab: [address] [address] Performing Lab: [address] [address] [facility] HEPATITI S B SURFACE ANTIBODY (HBsAb)- WH HEPATITIS B VIRUS SURFACE AB [PRESENCE] IN SERUM BY IMMUNOASSA Y Non Reactive 10/20 Specimen Type: SERUM No comment entered. Ordering Provider: Pablo STEWART Report Released Date/Time: Oct 21, 2023 02:15 PM Reporting Lab: [address] [address] Performing Lab: [facility] [address] [facility] [address] [facility] HEPATITI S C ANTIBODY (HCV)-AR C HEPATITIS C VIRUS AB [PRESENCE] IN SERUM NON-REAC TIVE 10/20 Specimen Type: SERUM Comment: Hep C Ab: No HCV antibody detected. If recent infection is suspected or other evidence suggests HCV infection, consider HCV nucleic acid testing Ordering Provider: Pablo STWEART Report Released Date/Time: Oct 21, 2023 02:15 PM Reporting Lab: [facility] [address] [facility] [address] Performing Lab: [facility] [address] [address] [facility] BASIC METABOLI C PANEL (fasting ) UREA NITROGEN [MASS/VOLU ME] IN SERUM OR PLASMA 28 mg/dL 7 - 25 10/20 H Specimen Type: SERUM No comment entered. Ordering Provider: Pablo STEWART Report Released Date/Time: Oct 21, 2023 02:15 PM Reporting Lab: [facility] [address] [address] Performing Lab: [facility] [address] [facility] [address] [facility] BASIC METABOLI C PANEL (fasting ) GLUCOSE [MASS/VOLU ME] IN SERUM OR PLASMA 147 mg/dL 65 - 100 10/20 H Specimen Type: SERUM No comment entered. Ordering Provider: Pablo STEWART Report Released Date/Time: Oct 21, 2023 02:15 PM Reporting Lab: [facility] [address] [address] Performing Lab: [facility] [address] [address] [facility] BASIC METABOLI C PANEL (fasting ) SODIUM [MOLES/VOL UME] IN SERUM OR PLASMA 139 mmol/L 135 - 145 10/20 Specimen Type: SERUM No comment entered. Ordering Provider: Pablo STEWART Report Released Date/Time: Oct 21, 2023 02:15 PM Reporting Lab: [place] [facility] [place] [facility] [address] [facility] [address] Performing Lab: [place] [facility] [place] [address] [address] [place] [facility] [place] [facility] BASIC METABOLI C PANEL (fasting ) POTASSIUM [MOLES/VOL UME] IN SERUM OR PLASMA 4.4 mmol/L 3.5 - 5.0 10/20 Specimen Type: SERUM No comment entered. Ordering Provider: Pablo STEWART Report Released Date/Time: Oct 21, 2023 02:15 PM Reporting Lab: [facility] [place] [address] [address] Performing Lab: [place] [facility] [place] [address] [address] [facility] BASIC METABOLI C PANEL (fasting ) CHLORIDE [MOLES/VOL UME] IN SERUM OR PLASMA 103 mmol/L 100 - 110 10/20 Specimen Type: SERUM No comment entered. Ordering Provider: Pablo STEWART Report Released Date/Time: Oct 21, 2023 02:15 PM Reporting Lab: [facility] [place] [address] [address] Performing Lab: [facility] [place] [address] [address] [place] [facility] [place] [facility] BASIC METABOLI C PANEL (fasting ) CARBON DIOXIDE, TOTAL [MOLES/VOL UME] IN SERUM OR PLASMA 27 meq/L 20 - 30 10/20 Specimen Type: SERUM No comment entered. Ordering Provider: Pablo STEWART Report Released Date/Time: Oct 21, 2023 02:15 PM Reporting Lab: [facility] [place] [address] [address] Performing Lab: [facility] [place] [address] [place] [address] [place] [facility] [place] [facility] BASIC METABOLI C PANEL (fasting ) CREATININE [MASS/VOLU ME] IN SERUM OR PLASMA 1.74 mg/dL 0.50 - 1.40 10/20 H Specimen Type: SERUM No comment entered. Ordering Provider: Pablo STEWART Report Released Date/Time: Oct 21, 2023 02:15 PM Reporting Lab: [facility] [place] [address] [address] Performing Lab: [facility] [place] [address] [address] [place] [facility] [place] [facility] BASIC METABOLI C PANEL (fasting ) GLOMERULAR FILTRATION RATE/1.73 SQ M.PREDICTE D [VOLUME RATE/AREA] IN SERUM, PLASMA OR BLOOD BY CREATININE -BASED FORMULA (CKD-EPI 2020) 45 mL/min 60 10/20 L Specimen Type: SERUM No comment entered. Ordering Provider: Pablo STEWART Report Released Date/Time: Oct 21, 2023 02:15 PM Reporting Lab: [facility] [place] [address] [address] Performing Lab: [place] [facility] [place] [address] [address] [facility] [place] [facility] LIVER FUNCTION PROTEIN [MASS/VOLU ME] IN SERUM OR PLASMA 6.7 g/dL 6.0 - 8.3 10/20 Specimen Type: SERUM No comment entered. Ordering Provider: Pablo STEWART Report Released Date/Time: Oct 21, 2023 02:15 PM Reporting Lab: [place] [facility] [place] [address] [address] Performing Lab: [facility] [place] [address] [address] [facility] [place] [facility] LIVER FUNCTION ALBUMIN [MASS/VOLU ME] IN SERUM OR PLASMA 4.1 g/dL 3.5 - 5.0 10/20 Specimen Type: SERUM No comment entered. Ordering Provider: Pablo STEWART Report Released Date/Time: Oct 21, 2023 02:15 PM Reporting Lab: [facility] [place] [facility] [address] [facility] [address] Performing Lab: [facility] [place] [facility] [address] [facility] [address] [facility] [place] [facility] LIVER FUNCTION ALKALINE PHOSPHATAS E [ENZYMATIC ACTIVITY/V OLUME] IN SERUM OR PLASMA 84 U/L 40 - 150 10/20 Specimen Type: SERUM No comment entered. Ordering Provider: Pablo STEWART Report Released Date/Time: Oct 21, 2023 02:15 PM Reporting Lab: [facility] [place] [facility] [address] [facility] [address] Performing Lab: [facility] [place] [facility] [address] [facility] [address] [facility] [place] [facility] LIVER FUNCTION ASPARTATE AMINOTRANS FERASE [ENZYMATIC ACTIVITY/V OLUME] IN SERUM OR PLASMA 19 U/L 5 - 34 10/20 Specimen Type: SERUM No comment entered. Ordering Provider: Pablo STEWART Report Released Date/Time: Oct 21, 2023 02:15 PM Reporting Lab: [facility] [place] [facility] [address] [facility] [address] Performing Lab: [facility] [place] [facility] [address] [facility] [address] [facility] [place] [facility] LIVER FUNCTION ALANINE AMINOTRANS FERASE [ENZYMATIC ACTIVITY/V OLUME] IN SERUM OR PLASMA 28 U/L 10/20 Specimen Type: SERUM No comment entered. Ordering Provider: Pablo STEWART Report Released Date/Time: Oct 21, 2023 02:15 PM Reporting Lab: [facility] [place] [facility] [address] [facility] [address] Performing Lab: [facility] [place] [facility] [address] [facility] [address] [facility] [place] [facility] LIVER FUNCTION BILIRUBIN. TOTAL [MASS/VOLU ME] IN SERUM OR PLASMA 0.6 mg/dL 0.2 - 1.2 10/20 Specimen Type: SERUM No comment entered. Ordering Provider: Pablo STEWART Report Released Date/Time: Oct 21, 2023 02:15 PM Reporting Lab: [facility] [place] [address] [address] Performing Lab: [facility] [place] [address] [address] [place] [facility] [place] [facility] LIPID PANEL FASTING CHOLESTERO L [MASS/VOLU ME] IN SERUM OR PLASMA 84 mg/dL 10/20 Specimen Type: SERUM No comment entered. Ordering Provider: Pablo STEWART Report Released Date/Time: Oct 21, 2023 02:15 PM Reporting Lab: [place] [facility] [place] [place] [address] [address] Performing Lab: [place] [facility] [place] [place] [address] [address] [facility] [place] [facility] LIPID PANEL FASTING TRIGLYCERI DE [MASS/VOLU ME] IN SERUM OR PLASMA 87 mg/dL 0 - 150 10/20 Specimen Type: SERUM No comment entered. Ordering Provider: Pablo STEWART Report Released Date/Time: Oct 21, 2023 02:15 PM Reporting Lab: [facility] [place] [address] [address] Performing Lab: [facility] [place] [address] [address] [place] [facility] [place] [facility] LIPID PANEL FASTING CHOLESTERO L IN LDL [MASS/VOLU ME] IN SERUM OR PLASMA BY CALCULATIO N 30 mg/dL 0 - 129 10/20 Specimen Type: SERUM No comment entered. Ordering Provider: Pablo STEWART Report Released Date/Time: Oct 21, 2023 02:15 PM Reporting Lab: [place] [facility] [place] [place] [address] [address] Performing Lab: [facility] [address] [facility] [address] [facility] LIPID PANEL FASTING CHOLESTERO L.TOTAL/CH OLESTEROL IN HDL [MASS RATIO] IN SERUM OR PLASMA 2.3 10/20 Specimen Type: SERUM No comment entered. Ordering Provider: Pablo STEWART Report Released Date/Time: Oct 21, 2023 02:15 PM Reporting Lab: [facility] [address] [facility] [address] Performing Lab: [facility]N [facility]ITAL[facility] [address] [facility] [address] [facility] LIPID PANEL FASTING CHOLESTERO L IN HDL [MASS/VOLU ME] IN SERUM OR PLASMA 37 mg/dL 40 - 60 10/20 L Specimen Type: SERUM No comment entered. Ordering Provider: Pablo STEWART Report Released Date/Time: Oct 21, 2023 02:15 PM Reporting Lab: [facility]ITAL[facility] [address] [facility] [address] Performing Lab: [facility] TRN [facility]ITALUSE[address] [address] [facility] HEMOGLOB IN A1C PANEL HEMOGLOBIN A1C/HEMOGL OBIN.TOTAL [...] Oct 21, 2023 02:15 PM Reporting Lab: [address] [address] Performing Lab: [address] [address] [facility] URINALYS IS COLOR OF URINE Yellow 10/20 Specimen Type: URINE Comment: If Glucose = >500 and Ketones are positive, please alert the Physician. Ordering Provider: Pablo STEWART Report Released Date/Time: Oct 21, 2023 02:15 PM Reporting Lab: [place] [facility] [place] [facility] [address] [facility] [address] Performing Lab: [place] [facility] [place] [facility] [address] [facility] [address] [facility] URINALYS IS APPEARANCE OF URINE Clear 10/20 Specimen Type: URINE Comment: If Glucose = >500 and Ketones are positive, please alert the Physician. Ordering Provider: Pablo STEWART Report Released Date/Time: Oct 21, 2023 02:15 PM Reporting Lab: [facility] [place] [place] [address] [address] Performing Lab: [place] [facility] [place] [facility] [address] [facility] [address] [facility] [place] [facility] URINALYS IS GLUCOSE [MASS/VOLU ME] IN URINE NEGATIVE mg/dL 10/20 Specimen Type: URINE Comment: If Glucose = >500 and Ketones are positive, please alert the Physician. Ordering Provider: Pablo STEWART Report Released Date/Time: Oct 21, 2023 02:15 PM Reporting Lab: [place] [facility] [place] [place] [facility] [address] [facility] [address] Performing Lab: [place] [facility] [place] [place] [facility] [address] [facility] [address] [facility] [place] URINALYS IS KETONES [MASS/VOLU ME] IN URINE BY TEST STRIP NEGATIVE mg/dL 10/20 Specimen Type: URINE Comment: If Glucose = >500 and Ketones are positive, please alert the Physician. Ordering Provider: Pablo STEWART Report Released Date/Time: Oct 21, 2023 02:15 PM Reporting Lab: [place] [facility] [place] [facility] [address] [facility] [address] Performing Lab: [place] [facility] [place] [place] [facility] [address] [facility] [address] [place] [facility] [place] [facility] URINALYS IS ERYTHROCYT ES [PRESENCE] IN URINE SEDIMENT BY LIGHT MICROSCOPY NEGATIVE mg/dL 10/20 Specimen Type: URINE Comment: If Glucose = >500 and Ketones are positive, please alert the Physician. Ordering Provider: Pablo STEWART Report Released Date/Time: Oct 21, 2023 02:15 PM Reporting Lab: [place] [facility] [place] [facility] [address] [facility] [address] Performing Lab: [place] [facility] [place] [facility] [address] [facility] [address] [facility] [place] [facility] URINALYS IS PROTEIN [MASS/VOLU ME] IN URINE BY TEST STRIP 20 mg/dL 10/20 Specimen Type: URINE Comment: If Glucose = >500 and Ketones are positive, please alert the Physician. Ordering Provider: Pablo STEWART Report Released Date/Time: Oct 21, 2023 02:15 PM Reporting Lab: [place] [facility] [place] [place] [facility] [address] [facility] [address] Performing Lab: [facility] [place] [facility] [address] [facility] [address] [facility] [place] [facility] URINALYS IS NITRITE [PRESENCE] IN URINE NEGATIVE mg/dL 10/20 Specimen Type: URINE Comment: If Glucose = >500 and Ketones are positive, please alert the Physician. Ordering Provider: Pablo STEWART Report Released Date/Time: Oct 21, 2023 02:15 PM Reporting Lab: [facility] [place] [facility] [address] [facility] [address] Performing Lab: [facility] [place] [facility] [address] [facility] [address] [place] [facility] [facility] URINALYS IS BILIRUBIN. TOTAL [PRESENCE] IN URINE NEGATIVE mg/dL 10/20 Specimen Type: URINE Comment: If Glucose = >500 and Ketones are positive, please alert the Physician. Ordering Provider: Pablo STEWART Report Released Date/Time: Oct 21, 2023 02:15 PM Reporting Lab: [facility] MON[facility]OMERYN [facility]ITALUSETS [facility] [address] [facility] [address] Performing Lab: [facility]ITALUSE[address] [address] [facility]ITALUSE [facility] URINALYS IS SPECIFIC GRAVITY OF URINE BY REFRACTOME TRY 1.024 1.016 - 1.022 10/20 H Specimen Type: URINE Comment: If Glucose = >500 and Ketones are positive, please alert the Physician. Ordering Provider: Pablo STEWART Report Released Date/Time: Oct 21, 2023 02:15 PM Reporting Lab: [facility]ITALUSE[address] [address] Performing Lab: [facility] MON[facility]OMERYN [facility]ITALUSE[address] [address] [facility] URINALYS IS PH OF URINE BY TEST STRIP 6.0 5.0 - 9.0 10/20 Specimen Type: URINE Comment: If Glucose = >500 and Ketones are positive, please alert the Physician. Ordering Provider: Pablo STEWART Report Released Date/Time: Oct 21, 2023 02:15 PM Reporting Lab: [facility]ITALUSE[address] [address] Performing Lab: [facility]IONRCROSSBRID[facility] BEH[facility] HEALTHTRN [facility]ITALUSE[address] [address] [facility]ITALUSE [facility] URINALYS IS UROBILINOG EN [MASS/VOLU ME] IN URINE BY TEST STRIP <2.0mg/d L <2.0 - 2.0 10/20 Specimen Type: URINE Comment: If Glucose = >500 and Ketones are positive, please alert the Physician. Ordering Provider: Pablo STEWART Report Released Date/Time: Oct 21, 2023 02:15 PM Reporting Lab: [facility] [place] [facility] [address] [facility] [address] Performing Lab: [facility] [place] [facility] [address] [facility] [address] [facility] [place] [facility] URINALYS IS LEUKOCYTE ESTERASE [PRESENCE] IN URINE BY TEST STRIP NEGATIVE 10/20 Specimen Type: URINE Comment: If Glucose = >500 and Ketones are positive, please alert the Physician. Ordering Provider: Pablo STEWART Report Released Date/Time: Oct 21, 2023 02:15 PM Reporting Lab: [facility] [place] [facility] [address] [facility] [address] Performing Lab: [facility] [place] [facility] [address] [facility] [address] [facility] [place] [facility] MICROALB UMIN CREATINI NE RATIO PANEL MICROALBUM IN/CREATIN INE [MASS RATIO] IN URINE 6.2 mg/g 0 - 29.9 10/20 Specimen Type: URINE No comment entered. Ordering Provider: Pablo STEWART Report Released Date/Time: Oct 21, 2023 02:15 PM Reporting Lab: [facility] [place] [facility] [address] [facility] [address] Performing Lab: [facility] [place] [facility] [address] [facility] [address] [facility] [place] [facility] MICROALB UMIN CREATINI NE RATIO PANEL MICROALBUM IN [MASS/VOLU ME] IN URINE 1.5 mg/dL 10/20 Specimen Type: URINE No comment entered. Ordering Provider: Pablo STEWART Report Released Date/Time: Oct 21, 2023 02:15 PM Reporting Lab: [facility] [place] [facility] [address] [facility] [address] Performing Lab: [facility] [place] [facility] [address] [facility] [address] [facility] [place] [facility] MICROALB UMIN CREATINI NE RATIO PANEL CREATININE [MASS/VOLU ME] IN URINE 240.98 mg/dL 10/20 Specimen Type: URINE No comment entered. Ordering Provider: Pablo STEWART Report Released Date/Time: Oct 21, 2023 02:15 PM Reporting Lab: [facility] [place] [facility] [address] [facility] [address] Performing Lab: [facility] [place] [facility] [address] [facility] [address] [facility] URIC ACID URATE [MASS/VOLU ME] IN SERUM OR PLASMA 5.4 mg/dL 3.5 - 7.2 10/20 Specimen Type: SERUM No comment entered. Ordering Provider: Pablo STEWART Report Released Date/Time: Oct 21, 2023 02:15 PM Reporting Lab: [facility] [place] [facility] [address] [facility] [address] Performing Lab: [facility] [place] [facility] [address] [facility] [address] [facility] [place] [facility] Vital Signs Combined list of inpatient and [...] [facility] En[facility] [id number] 10/11 [facility] En[facility] [id number] 10/11 [facility] En[facility] [id number] 10/14 [facility] En[facility] [id number] 10/14 [facility] OFFICE O/P NEW MOD 45 MIN [id number] Diagnos is: ICD-10- CM 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, unspeci MARILUZ Grider 10/20 [facility] En[facility] [id number] Diagnos is: ICD-10- CM E66.09 Other obesity due to excess calorie s MANEKAS,DI NA L 11/17 [facility] En[facility] [id number] 11/25 [facility] En[facility] [id number] Diagnos is: ICD-10- CM E66.09 Other obesity due to excess calorie s MANEKAS,DI NA L 12/13 [facility] En[facility] [id number] 01/10 [facility] En[facility] [id number] Diagnos is: ICD-10- CM E66.09 Other obesity due to excess calorie s MANEKAS,DI NA L 01/13 [facility] En[facility] [id number] 02/20 [facility] Encounter [id number] 1. Diagnos is: ICD-10- CM E66.09 Other obesity due to excess calorie s MANEKAS,DI NA L 02/20 [facility] En[facility] [id number] SARAH GARCIA ISTOPHER E 02/23 [facility] En[facility] [id number] Diagnos is: ICD-10- CM E66.09 Other obesity due to excess calorie s MANEKAS,DI NA L 03/13 [facility] Encounter [id number] 03/27 [facility] Encounter [id number] Diagnos is: ICD-10- CM E66.09 Other obesity due to excess calorie s MANEKAS,DI NA L 04/14 [facility] Encounter [id number] 05/02 [facility] En[facility] [id number] 11/08 [facility] Social History Combined list of available smoking, tobacco, and other social 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 Social History Type Response Date Comment Sourc e Tobacco smoking status NHIS [facility]-TO[facility]ACCO NEVER USED 10/15/2023 [facility]
[2025-02-12 11:08] VITALS: BP 108/62; PULSE 77; O2SAT 95; BMI 35.3
--- NOTE | 2025-02-12 11:08 | HO.NEPHOV_ITS ---
Vital Signs 02/12/25 11:08 Height 6 ft 4 in Weight 290 lb BMI 35.3 BP 108/62 Blood Pressure Location Rt brachial Position Sitting Pulse 77 Pulse Source Pulse Oximeter Pulse Oximetry (%) 95 Oxygen Delivery Method Room Air Intake Visit Reasons: FU-LVM Television Script Writer Required: No Accompanied by: Spouse Allergies No Known Allergies Allergy (Verified 02/12/25 11:10) Medication List - Last Reconciled 02/12/25 by Abilio Garsia MD allopurinol 300 mg PO DAILY aripiprazole 10 mg PO BEDTIME aspirin (Erick Low Dose Aspirin) 81 mg PO DAILY 90 days atorvastatin 20 mg PO DAILY 90 days baclofen 20 mg PO QID 30 days [bath tub mount As directed] blood pressure kit-extra large As directed blood sugar diagnostic ([employer] Ultra Test strips) Test blood sugar once a day bupropion HCl XL 300 mg PO QAM duloxetine 60 mg PO BEDTIME flash glucose scanning reader ([employer] Sonido 2 [place]) As directed flash glucose sensor ([employer] Sonido 2 Sensor kit) As directed insulin glargine (Lantus Solostar U-100 Insulin) 20 units subcut QPM losartan 100 mg PO DAILY Held on 01/30/25. Instructions: Dose Change pen needle, diabetic ([employer] Pen Needle) As directed penicillin V potassium 250 mg PO BID 90 days potassium citrate ER 20 mEq (2 x 10 mEq (1,080 mg)) PO BID 90 days Shower Chair Use As directed spironolacton-hydrochlorothiaz 25-25 mg 1 tab PO DAILY tirzepatide (weight loss) 5 mg (0.5 mL) subcut QWEEK 90 days walker Use As directed HPI Comments Details: Middle aged man with a history of diabetes mellitus obesity and obstructive sleep apnea with history of nephrolithiasis is here for evaluation of renal function He is being followed by Urology. On salt substitute 07/18/24 Overall doing well ;Still has cough with scanty clear sputum 10/31/24 Still has cough. Started on Zepbound - End of August Lost about 5 to 6 lbs 02/12/2025 Blood pressure was low. Losartan has been discontinued. He continues to lose weight. Blood pressure has been suboptimal he has had episodes of hypoglycemia. Accompanied by his . [facility] Medical History (Updated 02/01/25 @ 15:21 by Bia Gutierrez NP) Orthostatic hypotension Peripheral neuropathy Obstructive sleep apnea Restless legs syndrome (RLS) Obstructive sleep apnea Chronic pain syndrome Ureteral calculus Fatty liver Gout Kidney stones Depression, major, recurrent Lipid disorder 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, essential [facility] (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 Diabetes 1.5, managed as type 1 Complex regional pain syndrome of both lower extremities Diabetic peripheral neuropathy Spondylosis of lumbar region without myelopathy or radiculopathy Surgical History S/P placement of nerve stimulator Hx of lithotripsy Hx of colonoscopy (~11/10/16) Family History Other Mental health disorder Social History Housing: Condominium Alcohol intake: never Patient Tobacco Use Status: Never used Tobacco e-Cigarette/Vaping Use: Never Used Second Hand Smoke Exposure: No service: No Current occupational status: disabled Cognitive needs: No Hearing needs: No Vision needs: Yes Physical Exam Vital Signs: Last Vital Signs Pulse 77 02/12/25 11:08 BP 108/62 02/12/25 11:08 Pulse Ox 95 02/12/25 11:08 Oxygen Delivery Method Room Air 02/12/25 11:08 BMI result Body Mass Index 35.3 Const General: comfortable; No acute distress Orientation/consciousness: patient oriented x3 Eyes General: appearance normal, both eyes and all related structures Visual Espinoza: normal visual espinoza by confrontation Neck Neck: Yes supple and Yes no JVD Resp Effort & Inspection: normal respiratory effort and respiratory effort not decreased Cardio Palpation: no palpable S3 and no palpable S4 Heart sounds: no rubs GI Inspection: Yes normal to inspection Palpation (GI): Soft to palpation Percussion: Yes normal to percussion Auscultation: normal bowel sounds General: Yes no CVA tenderness Back/Spine/Pelvis Back: no CVA tenderness Skin General skin exam: no petechiae and no purpura Neuro General: patient oriented x3 and no focal motor deficits Extrem General: No clubbing and No edema Results Reviewed Nephrology Results: Sodium, (135-145) 139 mmol/L 01/12/25 Potassium, (3.3-5.1) 4.2 mmol/L 01/12/25 Chloride, (96-108) 104 mmol/L 01/12/25 Carbon Dioxide, (22-29) 28 mmol/L 01/12/25 BUN, (9-16) 22 mg/dL H 01/12/25 Creatinine, (0.5-1.4) 1.61 mg/dL H 01/12/25 Calcium, (8.4-10.2) 9.3 mg/dL Δ 01/12/25 Renal US 03/14/24 Assessment & Plan Assessment & Plan (1) 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, essential: Code(s): I10 - Essential (primary) hypertension Category: Medical (2) Chronic kidney disease: Code(s): N18.9 - Chronic kidney disease, unspecified Category: Medical Qualifiers: Chronic kidney disease stage: stage 3 (moderate) Chronic kidney disease stage 3 subtype: unspecified whether 3a or 3b Qualified Code(s): N18.30 - Chronic kidney disease, stage 3 unspecified Plan Middle aged man with hypertension CKD and nephrolithiasis. history of nephrolithiasis Hypocitraturia ON potassium citrate and Aldactazide. encouraged him to stay on low-sodium diet He should avoid salt substitute. We will monitor serum potassium closely. CKD 3 in a setting of DM obesity and nephrolithiasis Cr at 1.6 Encouraged him to use CPAP regularly. He continue to avoid nephrotoxic agents including NSAIDs. Maintain hemoglobin A1c less than 7%. 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. Blood pressure rather low. Off amlodipine Discontinue losartan. Discontinue Aldactazide. Replace with HCTZ 25 mg a day. With weight loss, BP is expected to decrease for Encouraged to watch BP at home and call if SBP < 100 or if he is light headed- would discontinue hydrochlorothiazide Orders: Orders Basic Metabolic Panel 4 Weeks I10 - Essential (primary) hypertension, N18.30 - Chronic kidney disease, stage 3 unspecified Total Protein Urine Random 4 Weeks I10 - Essential (primary) hypertension Creatinine Urine 4 Weeks I10 - Essential (primary) hypertension UA and rflx microscopic 4 Weeks I10 - Essential (primary) hypertension Medications: New hydrochlorothiazide 25 mg PO DAILY 30 tabs 1RF Discontinued spironolacton-hydrochlorothiaz 25-25 mg Discontinued Reason: Doctor's Order 1 tab PO DAILY 90 tabs 1RF losartan Discontinued Reason: Doctor's Order 100 mg PO DAILY 90 tabs 1RF Coding Level of Care Code Est Pt Level 4 (24958) Diagnoses 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, essential I10 Stage 3 chronic kidney disease, unspecified whether stage 3a or 3b CKD N18.30 Chronic kidney disease stage: stage 3 (moderate) Chronic kidney disease stage 3 subtype: unspecified whether 3a or 3b
--- OUTSIDE RECORDS SUMMARY | 2025-02-12 12:08 | XMS_ITS | Patient Health Record ---
Author Organization [facility] Tavon brittany Lyndsey Address [address] [facility] [place] [address] Care Team Providers Care Cash Applications Analyst Name Role Phone Robin Pierre Primary Care Provider Unavailabl e Black, Stephanie Unavailable [phone] Reason For Referral No Information Medications Medication [...] Problem Acquired hammer toe of right foot ([id number] ) Other hammer toe(s) (acquired), right foot (M20.41) Active confirmed Problem Acquired hammer toe of left foot (5212222947770412 ) Other hammer toe(s) (acquired), left foot (M20.42) Active confirmed Problem Polyneuropathy due to type 2 diabetes mellitus (699340036) Type 2 diabetes mellitus with diabetic polyneuropathy (E11.42) Active confirmed Plan Of Treatment Pending Test Test Name Order Date X ray : Foot, right 3V 09/16/2017 [id number] NAIL, 1-5 09/05/2018 [id number] NAIL, 1-5 03/18/2017 [id number] NAIL, 1-5 09/16/2017 [id number] Plate 09/05/2018 [id number] SKIN LESIONS, 2 TO 4 09/06/19 19 [id number] NAIL(S) 09/05/2018 [id number] NAIL(S) 09/16/2017 [id number] NAIL(S) 03/18/2017 Medical (General) History Medical History History ICD Code Anxiety Back,Hip,and Knee pain Depression Diabetic Gout High blood pressure Numbness Surgical History Surgery Date(Month/Year) Hospitalization History Reason Date(Month/Year) [facility]- 9 DAYS 01/07/17 [facility] [place] [facility] - recurrent cellulitis 07/2018
--- OUTSIDE RECORDS SUMMARY | 2025-02-12 12:08 | XMS_ITS | Clinical Summary ---
Author Organization [facility] Address [address] [place] [address] Care Team Providers Care Company Controller Name Role Phone Gabby Kelly Primary Care Provider Allergies No known active allergies Medications amLODIPine [...] 03/30/2024, 05/2023, 03/09/2022, Additional history exists Insurance [facility] Care Teams Company Controller Relationship Specialty Start Date End Date Robin, Gabby [facility] ORALIA Wallace [phone] PCP - General Internal Medicine 08/15/24
--- OUTSIDE RECORDS SUMMARY | 2025-02-12 12:08 | XMS_ITS | Clinical Summary ---
Author Organization [facility] Address [address] [facility] [address] [place] [address] Phone Care Team Providers Care Community Arts Centre Manager Name Role Phone Gabby Kelly MD Primary Care Provider [phone] Allergies No known active allergies Medications Multiple Vitamins-Area Coordinator als (MULTIVITAMIN ADULT EXTRA C PO) Take [...] Influenza Vaccine (#1) 2025 Insurance [place] [facility] [place] [facility] Care Teams Community Arts Centre Manager Relationship Specialty Start Date End Date Gabby Kelly MD [facility] [place] [address] PCP - General 07/08/20
== END 2025-02-12 11:29 | disposition home or self-care (01) ==
LOC: HO.HKA 10:58
PROVIDERS: PCP Internal Medicine; Visit Provider Internal Medicine Hypertension Specialist
DX: I10 Essential (primary) hypertension (principal); N18.30 Chronic kidney disease, stage 3 unspecified
CPT/HCPCS: 99214

== ENCOUNTER 2025-02-14 13:04 | Outpatient (AMB) | payer OTHER, SELFPAY ==
--- OUTSIDE RECORDS SUMMARY | 2024-12-26 01:50 | XMS_ITS | Continuity of Care Document ---
Author Name [facility] Organization [facility] Care Team Providers Care Labor Gang Supervisor Name Role Phone [facility] Unavailable Unavailable Problems Combined list of problems [...] [place] [facility] Exposure to potentially hazardous substance ([facility] [id number] ) Active Condition Oct 22, 2023 Entered [...] Site Reaction Lot Number CVX Code Drug Network Security Architect Status Comments Source INFLUENZA, UNSPECIFIED FORMULATION 2022 88 complet ed HISTORICA L INFORMATI ON - FROM OTHER REGISTRY, [facility] [place] COVID-19 (MODERNA), MRNA, LNP-S, PF, 100 MCG/0.5ML DOSE OR 50 MCG/0.25ML DOSE 2020 207 complet ed Booster for Series, HISTORICA L INFORMATI ON - FROM OTHER PROVIDER, [facility] [place] [facility] COVID-19 (PFIZER), MRNA, LNP-S, PF, 30 MCG/0.3 ML DOSE 2 2020 208 complet ed HISTORICA L INFORMATI ON - [facility] COVID-19 (PFIZER), MRNA, LNP-S, PF, 30 MCG/0.3 ML DOSE 1 2020 208 complet ed HISTORICA L INFORMATI ON - [facility] PROVID[facility] Results Combined list of recent chemistry, [...] Oct 21, 2023 02:15 PM Reporting Lab: [address] [address] Performing Lab: [address] [address] [facility] HEPATITI S B SURFACE ANTIBODY (HBsAb)- WH HEPATITIS B VIRUS SURFACE AB [PRESENCE] IN SERUM BY IMMUNOASSA Y Non Reactive 10/20 Specimen Type: SERUM No comment entered. Ordering Provider: Pablo STEWART Report Released Date/Time: Oct 21, 2023 02:15 PM Reporting Lab: [address] [address] Performing Lab: [facility] [address] [address] FORMER[facility] TRN [facility]USE [facility] HEPATITI S C ANTIBODY (HCV)-AR C HEPATITIS C VIRUS AB [PRESENCE] IN SERUM NON-REAC TIVE 10/20 Specimen Type: SERUM Comment: Hep C Ab: No HCV antibody detected. If recent infection is suspected or other evidence suggests HCV infection, consider HCV nucleic acid testing Ordering Provider: Pablo STEWART Report Released Date/Time: Oct 21, 2023 02:15 PM Reporting Lab: [facility]YN [facility] [address] [facility] [facility] [address] Performing Lab: [facility] [address] [address] [facility] BASIC METABOLI C PANEL (fasting ) UREA NITROGEN [MASS/VOLU ME] IN SERUM OR PLASMA 28 mg/dL 7 - 25 10/20 H Specimen Type: SERUM No comment entered. Ordering Provider: Pablo STEWART Report Released Date/Time: Oct 21, 2023 02:15 PM Reporting Lab: [facility] COUNTYN [address] [address] Performing Lab: [facility]ITALRL [facility]N [facility] [address] [facility] [address] [facility] BASIC METABOLI C PANEL (fasting ) GLUCOSE [MASS/VOLU ME] IN SERUM OR PLASMA 147 mg/dL 65 - 100 10/20 H Specimen Type: SERUM No comment entered. Ordering Provider: Pablo STEWART Report Released Date/Time: Oct 21, 2023 02:15 PM Reporting Lab: [facility]ITALR[facility] COUNTYN [address] [address] Performing Lab: [facility]ITALREN[facility] COUNTYN [address] [address] [facility]YN [facility] BASIC METABOLI C PANEL (fasting ) SODIUM [MOLES/VOL UME] IN SERUM OR PLASMA 139 mmol/L 135 - 145 10/20 Specimen Type: SERUM No comment entered. Ordering Provider: Pablo STEWART Report Released Date/Time: Oct 21, 2023 02:15 PM Reporting Lab: [facility] [place] [facility] [address] [facility] [address] Performing Lab: [facility] [place] [address] [address] [facility] [place] [facility] BASIC METABOLI C PANEL (fasting ) POTASSIUM [MOLES/VOL UME] IN SERUM OR PLASMA 4.4 mmol/L 3.5 - 5.0 10/20 Specimen Type: SERUM No comment entered. Ordering Provider: Pablo STEWART Report Released Date/Time: Oct 21, 2023 02:15 PM Reporting Lab: [facility] [place] [address] [address] Performing Lab: [facility] [place] [address] [address] [facility] [place] [facility] BASIC METABOLI C PANEL (fasting ) CHLORIDE [MOLES/VOL UME] IN SERUM OR PLASMA 103 mmol/L 100 - 110 10/20 Specimen Type: SERUM No comment entered. Ordering Provider: Pablo STEWART Report Released Date/Time: Oct 21, 2023 02:15 PM Reporting Lab: [facility] [place] [address] [address] Performing Lab: [facility] [place] [address] [address] [facility] [place] [facility] BASIC METABOLI C PANEL (fasting ) CARBON DIOXIDE, TOTAL [MOLES/VOL UME] IN SERUM OR PLASMA 27 meq/L 20 - 30 10/20 Specimen Type: SERUM No comment entered. Ordering Provider: Pablo STEWART Report Released Date/Time: Oct 21, 2023 02:15 PM Reporting Lab: [facility] [place] [address] [address] Performing Lab: [facility] [place] [address] [place] [address] [facility] [place] [facility] BASIC METABOLI C PANEL (fasting ) CREATININE [MASS/VOLU ME] IN SERUM OR PLASMA 1.74 mg/dL 0.50 - 1.40 10/20 H Specimen Type: SERUM No comment entered. Ordering Provider: Pablo STEWART Report Released Date/Time: Oct 21, 2023 02:15 PM Reporting Lab: [facility] [place] [address] [address] Performing Lab: [facility] [place] [address] [address] [place] [facility] [place] [facility] BASIC METABOLI C PANEL (fasting ) GLOMERULAR FILTRATION RATE/1.73 SQ M.PREDICTE D [VOLUME RATE/AREA] IN SERUM, PLASMA OR BLOOD BY CREATININE -BASED FORMULA (CKD-EPI 2020) 45 mL/min 60 10/20 L Specimen Type: SERUM No comment entered. Ordering Provider: Pablo STEWART Report Released Date/Time: Oct 21, 2023 02:15 PM Reporting Lab: [facility] [place] [address] [address] Performing Lab: [facility] [place] [address] [address] [facility] [place] [facility] LIVER FUNCTION PROTEIN [MASS/VOLU ME] IN SERUM OR PLASMA 6.7 g/dL 6.0 - 8.3 10/20 Specimen Type: SERUM No comment entered. Ordering Provider: Pablo STEWART Report Released Date/Time: Oct 21, 2023 02:15 PM Reporting Lab: [place] [facility] [place] [address] [address] Performing Lab: [facility] [place] [address] [address] [facility] [place] [facility] LIVER FUNCTION ALBUMIN [MASS/VOLU ME] IN SERUM OR PLASMA 4.1 g/dL 3.5 - 5.0 10/20 Specimen Type: SERUM No comment entered. Ordering Provider: Pablo STEWART Report Released Date/Time: Oct 21, 2023 02:15 PM Reporting Lab: [facility] [place] [facility] [address] [facility] [facility] [address] Performing Lab: [facility] [place] [facility] [address] [facility] [address] [facility] [place] [facility] LIVER FUNCTION ALKALINE PHOSPHATAS E [ENZYMATIC ACTIVITY/V OLUME] IN SERUM OR PLASMA 84 U/L 40 - 150 10/20 Specimen Type: SERUM No comment entered. Ordering Provider: Pablo STEWART Report Released Date/Time: Oct 21, 2023 02:15 PM Reporting Lab: [facility] [place] [facility] [address] [facility] [facility] [address] Performing Lab: [facility] [place] [facility] [address] [facility] [facility] [address] [facility] [place] [facility] LIVER FUNCTION ASPARTATE AMINOTRANS FERASE [ENZYMATIC ACTIVITY/V OLUME] IN SERUM OR PLASMA 19 U/L 5 - 34 10/20 Specimen Type: SERUM No comment entered. Ordering Provider: Pablo STEWART Report Released Date/Time: Oct 21, 2023 02:15 PM Reporting Lab: [facility] [place] [facility] [address] [facility] [facility] [address] Performing Lab: [facility] [place] [facility] [address] [facility] [facility] [address] [facility] [place] [facility] LIVER FUNCTION ALANINE AMINOTRANS FERASE [ENZYMATIC ACTIVITY/V OLUME] IN SERUM OR PLASMA 28 U/L 10/20 Specimen Type: SERUM No comment entered. Ordering Provider: Pablo STEWART Report Released Date/Time: Oct 21, 2023 02:15 PM Reporting Lab: [facility] [place] [facility] [address] [facility] [address] Performing Lab: [facility] [place] [facility] [address] [facility] [facility] [address] [facility] [place] [facility] LIVER FUNCTION BILIRUBIN. TOTAL [MASS/VOLU ME] IN SERUM OR PLASMA 0.6 mg/dL 0.2 - 1.2 10/20 Specimen Type: SERUM No comment entered. Ordering Provider: Pablo STEWART Report Released Date/Time: Oct 21, 2023 02:15 PM Reporting Lab: [facility] [place] [address] [address] Performing Lab: [facility] [place] [address] [address] [facility] [place] [facility] LIPID PANEL FASTING CHOLESTERO L [MASS/VOLU ME] IN SERUM OR PLASMA 84 mg/dL 10/20 Specimen Type: SERUM No comment entered. Ordering Provider: Pablo STEWART Report Released Date/Time: Oct 21, 2023 02:15 PM Reporting Lab: [facility] [place] [address] [address] Performing Lab: [place] [facility] [place] [address] [address] [facility] [place] [facility] LIPID PANEL FASTING TRIGLYCERI DE [MASS/VOLU ME] IN SERUM OR PLASMA 87 mg/dL 0 - 150 10/20 Specimen Type: SERUM No comment entered. Ordering Provider: Pablo STEWART Report Released Date/Time: Oct 21, 2023 02:15 PM Reporting Lab: [facility] [place] [address] [address] Performing Lab: [facility] [place] [address] [address] [place] [facility] [place] [facility] LIPID PANEL FASTING CHOLESTERO L IN LDL [MASS/VOLU ME] IN SERUM OR PLASMA BY CALCULATIO N 30 mg/dL 0 - 129 10/20 Specimen Type: SERUM No comment entered. Ordering Provider: Pablo STEWART Report Released Date/Time: Oct 21, 2023 02:15 PM Reporting Lab: [facility] [place] [address] [address] Performing Lab: [facility] [address] [address] [facility]ITALRL [facility]N [facility]USE [facility] LIPID PANEL FASTING CHOLESTERO L.TOTAL/CH OLESTEROL IN HDL [MASS RATIO] IN SERUM OR PLASMA 2.3 10/20 Specimen Type: SERUM No comment entered. Ordering Provider: Pablo STEWART Report Released Date/Time: Oct 21, 2023 02:15 PM Reporting Lab: [facility]OSPITALRL TRN [facility] CENTERUSEBER[facility] [address] [address] Performing Lab: [facility]ITALRENCOM[facility] COUNTYN [facility]ENTERUSEBERTR[facility] [address] [facility] [address] [facility]ITALN [facility] CENTERUSE [facility] LIPID PANEL FASTING CHOLESTERO L IN HDL [MASS/VOLU ME] IN SERUM OR PLASMA 37 mg/dL 40 - 60 10/20 L Specimen Type: SERUM No comment entered. Ordering Provider: Pablo STEWART Report Released Date/Time: Oct 21, 2023 02:15 PM Reporting Lab: [facility]OSPITALRL TRN [facility] CENTERUSEBERTR[facility] [address] [address] Performing Lab: [facility]LY [facility]OSPITALRL TRN [facility] CENTERUSE[address] [address] [facility]ITALUSE [facility] HEMOGLOB IN A1C PANEL HEMOGLOBIN A1C/HEMOGL [...] Oct 21, 2023 02:15 PM Reporting Lab: [address] [address] Performing Lab: [address] [address] [facility] [place] URINALYS IS COLOR OF URINE Yellow 10/20 Specimen Type: URINE Comment: If Glucose = >500 and Ketones are positive, please alert the Physician. Ordering Provider: Pablo STEWART Report Released Date/Time: Oct 21, 2023 02:15 PM Reporting Lab: [facility] [place] [place] [facility] [address] [facility] [facility] [address] Performing Lab: [facility] [place] [place] [facility] [address] [facility] [facility] [address] [facility] [place] [facility] URINALYS IS APPEARANCE OF URINE Clear 10/20 Specimen Type: URINE Comment: If Glucose = >500 and Ketones are positive, please alert the Physician. Ordering Provider: Pablo STEWART Report Released Date/Time: Oct 21, 2023 02:15 PM Reporting Lab: [facility]ITALR [place] [place] [address] [address] Performing Lab: [place] [facility] [place] [facility] [address] [facility] [facility] [address] [facility]ITALRL [facility] [place] [facility] URINALYS IS GLUCOSE [MASS/VOLU ME] IN URINE NEGATIVE mg/dL 10/20 Specimen Type: URINE Comment: If Glucose = >500 and Ketones are positive, please alert the Physician. Ordering Provider: Pablo STEWART Report Released Date/Time: Oct 21, 2023 02:15 PM Reporting Lab: [facility] [place] [place] [facility] [address] [facility] [facility] [address] Performing Lab: [facility] [place] [place] [facility] [address] [facility] [facility] [address] [facility] [place] [facility] URINALYS IS KETONES [MASS/VOLU ME] IN URINE BY TEST STRIP NEGATIVE mg/dL 10/20 Specimen Type: URINE Comment: If Glucose = >500 and Ketones are positive, please alert the Physician. Ordering Provider: Pablo STEWART Report Released Date/Time: Oct 21, 2023 02:15 PM Reporting Lab: [place] [facility] [place] [facility] [address] [facility] [facility] [address] Performing Lab: [place] [facility] [place] [facility] [address] [facility] [facility] [address] [facility] [place] [facility] URINALYS IS ERYTHROCYT ES [PRESENCE] IN URINE SEDIMENT BY LIGHT MICROSCOPY NEGATIVE mg/dL 10/20 Specimen Type: URINE Comment: If Glucose = >500 and Ketones are positive, please alert the Physician. Ordering Provider: Pablo STEWART Report Released Date/Time: Oct 21, 2023 02:15 PM Reporting Lab: [place] [facility] [place] [facility] [address] [facility] [facility] [address] Performing Lab: [place] [facility] [place] [facility] [address] [facility] [facility] [address] [facility]ITALRL [facility] [place] [facility] URINALYS IS PROTEIN [MASS/VOLU ME] IN URINE BY TEST STRIP 20 mg/dL 10/20 Specimen Type: URINE Comment: If Glucose = >500 and Ketones are positive, please alert the Physician. Ordering Provider: Pablo STEWART Report Released Date/Time: Oct 21, 2023 02:15 PM Reporting Lab: [place] [facility] [place] [facility] [address] [facility] [address] Performing Lab: [facility] [place] [facility] [address] [facility] [facility] [address] [facility]ITALRL [facility] [place] [facility] URINALYS IS NITRITE [PRESENCE] IN URINE NEGATIVE mg/dL 10/20 Specimen Type: URINE Comment: If Glucose = >500 and Ketones are positive, please alert the Physician. Ordering Provider: Pablo STEWART Report Released Date/Time: Oct 21, 2023 02:15 PM Reporting Lab: [place] [facility] [place] [facility] [address] [facility] [facility] [address] Performing Lab: [facility] [place] [facility] [address] [facility] [facility] [address] [facility] [place] [facility] URINALYS IS BILIRUBIN. TOTAL [PRESENCE] IN URINE NEGATIVE mg/dL 10/20 Specimen Type: URINE Comment: If Glucose = >500 and Ketones are positive, please alert the Physician. Ordering Provider: Pablo STEWART Report Released Date/Time: Oct 21, 2023 02:15 PM Reporting Lab: [facility]OSPITALRENCOMPASS [facility] COUNTYN [facility] CENTERUSETS [facility] [address] [address] Performing Lab: [facility]ITALN [facility] CENTERUSE[address] [address] [facility]ITALN [facility] CENTERUSE [facility] URINALYS IS SPECIFIC GRAVITY OF URINE BY REFRACTOME TRY 1.024 1.016 - 1.022 10/20 H Specimen Type: URINE Comment: If Glucose = >500 and Ketones are positive, please alert the Physician. Ordering Provider: Pablo STEWART Report Released Date/Time: Oct 21, 2023 02:15 PM Reporting Lab: [facility]ITALN [facility] CENTERUSE[address] [address] Performing Lab: [facility]OSPITALRENCOMPASS [facility] COUNTYN [facility] CENTERUSE[address] [address] [facility]OSPITALUSE [facility] URINALYS IS PH OF URINE BY TEST STRIP 6.0 5.0 - 9.0 10/20 Specimen Type: URINE Comment: If Glucose = >500 and Ketones are positive, please alert the Physician. Ordering Provider: Pablo STEWART Report Released Date/Time: Oct 21, 2023 02:15 PM Reporting Lab: [facility]ITALN [facility] CENTERUSE[address] [address] Performing Lab: [facility] HOSPITALRMARY [facility] CENTERTRN [facility] CENTERUSE[address] [address] [facility]N [facility] CENTERUSE [facility] URINALYS IS UROBILINOG EN [MASS/VOLU ME] IN URINE BY TEST STRIP <2.0mg/d L <2.0 - 2.0 10/20 Specimen Type: URINE Comment: If Glucose = >500 and Ketones are positive, please alert the Physician. Ordering Provider: Pablo STEWART Report Released Date/Time: Oct 21, 2023 02:15 PM Reporting Lab: [facility] [place] [facility] [address] [facility] [facility] [address] Performing Lab: [facility] [place] [facility] [address] [facility] [address] [facility] [place] [facility] URINALYS IS LEUKOCYTE ESTERASE [PRESENCE] IN URINE BY TEST STRIP NEGATIVE 10/20 Specimen Type: URINE Comment: If Glucose = >500 and Ketones are positive, please alert the Physician. Ordering Provider: Pablo STEWART Report Released Date/Time: Oct 21, 2023 02:15 PM Reporting Lab: [facility] [place] [facility] [address] [facility] [facility] [address] Performing Lab: [facility] [place] [facility] [address] [facility] [address] [facility] [place] [facility] MICROALB UMIN CREATINI NE RATIO PANEL MICROALBUM IN/CREATIN INE [MASS RATIO] IN URINE 6.2 mg/g 0 - 29.9 10/20 Specimen Type: URINE No comment entered. Ordering Provider: Pablo STEWART Report Released Date/Time: Oct 21, 2023 02:15 PM Reporting Lab: [facility] [place] [facility] [address] [facility] [address] Performing Lab: [facility] [place] [facility] [address] [facility] [address] [facility] [place] [facility] MICROALB UMIN CREATINI NE RATIO PANEL MICROALBUM IN [MASS/VOLU ME] IN URINE 1.5 mg/dL 10/20 Specimen Type: URINE No comment entered. Ordering Provider: Pablo STEWART Report Released Date/Time: Oct 21, 2023 02:15 PM Reporting Lab: [facility] [place] [facility] [address] [facility] [address] Performing Lab: [facility] [place] [facility] [address] [facility] [address] [facility] [place] [facility] MICROALB UMIN CREATINI NE RATIO PANEL CREATININE [MASS/VOLU ME] IN URINE 240.98 mg/dL 10/20 Specimen Type: URINE No comment entered. Ordering Provider: Pablo STEWART Report Released Date/Time: Oct 21, 2023 02:15 PM Reporting Lab: [facility] [place] [facility] [address] [facility] [address] Performing Lab: [facility] [place] [facility] [address] [facility] [address] [facility] URIC ACID URATE [MASS/VOLU ME] IN SERUM OR PLASMA 5.4 mg/dL 3.5 - 7.2 10/20 Specimen Type: SERUM No comment entered. Ordering Provider: Pablo STEWART Report Released Date/Time: Oct 21, 2023 02:15 PM Reporting Lab: [facility] [place] [facility] [address] [facility] [address] Performing Lab: [facility] [place] [facility] [address] [facility] [address] [facility] [place] [facility] Vital Signs Combined list of inpatient [...] [facility] [place] Out[facility] En[facility] [id number] 10/11 [facility] En[facility] [id number] 10/11 [facility] [place] En[facility] [id number] 10/14 [facility] [place] En[facility] [id number] 10/14 [facility] [place] OFFICE O/P NEW MOD 45 MIN [id number] Diagnos is: ICD-10- CM 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, unspeci MARILUZ Grider 10/20 [facility] [id number] Diagnos is: ICD-10- CM E66.09 Other obesity due to excess calorie s MANEKAS,DI NA L 11/17 [facility] En[facility] [id number] 11/25 [facility] [id number] Diagnos is: ICD-10- CM E66.09 Other obesity due to excess calorie s MANEKAS,DI NA L 12/13 [facility] En[facility] [id number] 01/10 [facility] Encounter [id number] Diagnos is: ICD-10- CM E66.09 Other obesity due to excess calorie s MANEKAS,DI NA L 01/13 [facility] Encounter [id number] 02/20 [facility] En[facility] [id number] 1. Diagnos is: ICD-10- CM E66.09 Other obesity due to excess calorie s MANEKAS,DI NA L 02/20 [facility] Encounter [id number] SARAH GARCIA ISTOPHER E 02/23 [facility] Encounter [id number] Diagnos is: ICD-10- CM E66.09 Other obesity due to excess calorie s MANEKAS,DI NA L 03/13 [facility] En[facility] [id number] 03/27 [facility] Encounter [id number] Diagnos is: ICD-10- CM E66.09 Other obesity due to excess calorie s MANEKAS,DI NA L 04/14 [facility] [id number] 05/02 [facility] Encounter [id number] 11/08 [facility] Social History Combined list of available smoking, tobacco, and other social 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 Social History Type Response Date Comment Sourc e Tobacco smoking status NHIS [facility]-TO[facility]ACCO NEVER USED 10/15/2023 [facility]
--- NOTE | 2025-02-14 13:04 | A.OFFVIS_ITS ---
Vital Signs 02/14/25 13:07 Height 6 ft 4 in Weight 296 lb BMI 36.0 Pulse 96 Pulse Source Pulse Oximeter Pulse Oximetry (%) 97 Oxygen Delivery Method Room Air Intake Visit Reasons: 1 year follow up cellulititis Allergies No Known Allergies Allergy (Verified 02/14/25 13:08) HPI HPI 1 year follow up cellulititis: Details: He is doing well. He has had no recurrent cellulitis. He is concerned that he will have recurrence if stops PCN although he says his PCP wants him to consider stopping it. [facility] Medical History Orthostatic hypotension Peripheral neuropathy Obstructive sleep apnea Restless legs syndrome (RLS) Obstructive sleep apnea Chronic pain syndrome Ureteral calculus Fatty liver Gout Kidney stones Depression, major, recurrent Lipid disorder 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, essential longterm (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 Diabetes 1.5, managed as type 1 Complex regional pain syndrome of both lower extremities Diabetic peripheral neuropathy Spondylosis of lumbar region without myelopathy or radiculopathy Surgical History S/P placement of nerve stimulator Hx of lithotripsy Hx of colonoscopy (~11/10/16) Family History Other Mental health disorder Social History Housing: Condominium Alcohol intake: never Patient Tobacco Use Status: Never used Tobacco e-Cigarette/Vaping Use: Never Used Second Hand Smoke Exposure: No service: No Current occupational status: disabled Cognitive needs: No Hearing needs: No Vision needs: Yes Review of Systems Const All systems reviewed & are unremarkable except as noted in HPI and below Physical Exam Vital Signs: Last Vital Signs Pulse 96 02/14/25 13:07 Pulse Ox 97 02/14/25 13:07 Oxygen Delivery Method Room Air 02/14/25 13:07 BMI result Body Mass Index 36.0 Assessment & Plan Assessment & Plan (1) Cellulitis: Comment: He has not had any cellulitis last year Code(s): L03.90 - Cellulitis, unspecified Category: Medical Qualifiers: Site of cellulitis: other site Qualified Code(s): L03.818 - Cellulitis of other sites Plan: Continue PCN Written for for a year. See in one year. Medications: Refilled penicillin V potassium 250 mg PO BID 180 tabs 3RF 90 days Coding Level of Care Code Est Pt Level 3 (62190) Diagnoses Cellulitis of other specified site L03.818 Site of cellulitis: other site
[2025-02-14 13:07] VITALS: PULSE 96; O2SAT 97; BMI 36.0
--- OUTSIDE RECORDS SUMMARY | 2025-02-14 13:57 | XMS_ITS | Clinical Summary ---
Author Organization [facility] Address [address] [facility] [address] [place] [address] Phone Care Team Providers Care Rug Underlay Machine Operator Name Role Phone Gabby Kelly MD Primary Care Provider [phone] Allergies No known active allergies Medications Multiple Vitamins-Soaking Pits Supervisor als (MULTIVITAMIN ADULT EXTRA C PO) Take [...] Influenza Vaccine (#1) 2025 Insurance Medicaid [place] [facility] [place] [facility] Care Teams Rug Underlay Machine Operator Relationship Specialty Start Date End Date Gabby Kelly [place] [address] PCP - General 07/08/20
--- OUTSIDE RECORDS SUMMARY | 2025-02-14 13:58 | XMS_ITS | Patient Health Record ---
Author Organization [facility] Tavon brittany Lyndsey Address [address] [place] [address] Care Team Providers Care Wrapper Stemmer Hand Name Role Phone Robin Pierre Primary Care Provider Unavailabl e Black, Stephanie Unavailable [phone] Reason For Referral No Information Medications Medication [...] Problem Acquired hammer toe of right foot ([id number] ) Other hammer toe(s) (acquired), right foot (M20.41) Active confirmed Problem Acquired hammer toe of left foot ([id number] ) Other hammer toe(s) (acquired), left foot (M20.42) Active confirmed Problem Polyneuropathy due to type 2 diabetes mellitus (027467858) Type 2 diabetes mellitus with diabetic polyneuropathy (E11.42) Active confirmed Plan Of Treatment Pending Test Test Name Order Date X ray : Foot, right 3V 09/16/2017 [id number] NAIL, 1-5 09/05/2018 [id number] NAIL, 1-5 03/18/2017 [id number] NAIL, 1-5 09/16/2017 [id number] Plate 09/05/2018 [id number] SKIN LESIONS, 2 TO 4 09/06/19 19 [id number] NAIL(S) 09/05/2018 [id number] NAIL(S) 09/16/2017 [id number] NAIL(S) 03/18/2017 Medical (General) History Medical History History ICD Code Anxiety Back,Hip,and Knee pain Depression Diabetic Gout High blood pressure Numbness Surgical History Surgery Date(Month/Year) Hospitalization History Reason Date(Month/Year) [facility]- 9 DAYS 01/07/17 [facility] [place] - recurrent cellulitis 07/2018
--- OUTSIDE RECORDS SUMMARY | 2025-02-14 13:58 | XMS_ITS | Clinical Summary ---
Author Organization [facility] Address [address] [place] [address] Care Team Providers Care Humanities Department Chair Name Role Phone Gabby Kelly Primary Care Provider [phone] Allergies No known active allergies Medications amLODIPine [...] 03/30/2024, 05/2023, 03/09/2022, Additional history exists Insurance [facility] Care Teams Humanities Department Chair Relationship Specialty Start Date End Date Robin, Gabby [facility] ORALIA Wallace [phone] PCP - General Internal Medicine 08/15/24
== END 2025-02-14 13:41 | disposition home or self-care (01) ==
LOC: HO.HID 13:04
PROVIDERS: PCP Internal Medicine; Visit Provider Internal Medicine
DX: L03.818 Cellulitis of other sites (principal)
CPT/HCPCS: 99213

== ENCOUNTER 2025-02-27 06:16 | Outpatient (REF) | payer OTHER, SELFPAY ==
--- OUTSIDE RECORDS SUMMARY | 2024-12-26 01:50 | XMS_ITS | Continuity of Care Document ---
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 Phone [facility] Unavailable Unavailable Problems Combined list of problems [...] [place] [facility] Exposure to potentially hazardous substance ([facility] [id number] ) Active Condition Oct 22, 2023 Entered [...] Site Reaction Lot Number CVX Code Drug Stapler Coil Unit Status Comments Source INFLUENZA, UNSPECIFIED FORMULATION 2022 88 complet ed HISTORICA L INFORMATI ON - FROM OTHER REGISTRY, [facility] [place] COVID-19 (MODERNA), MRNA, LNP-S, PF, 100 MCG/0.5ML DOSE OR 50 MCG/0.25ML DOSE 2020 207 complet ed Booster for Series, HISTORICA L INFORMATI ON - FROM OTHER PROVIDER, [facility] [place] [facility] COVID-19 (PFIZER), MRNA, LNP-S, PF, 30 MCG/0.3 ML DOSE 2 2020 208 complet ed HISTORICA L INFORMATI ON - [facility] OTHER PROVID[facility] COVID-19 (PFIZER), MRNA, LNP-S, PF, 30 MCG/0.3 ML DOSE 1 2020 208 complet ed HISTORICA L INFORMATI ON - [facility] PROVID[facility] Results Combined list of recent chemistry, [...] Oct 21, 2023 02:15 PM Reporting Lab: [address] [address] Performing Lab: [address] [address] [facility] HEPATITI S B SURFACE ANTIBODY (HBsAb)- WH HEPATITIS B VIRUS SURFACE AB [PRESENCE] IN SERUM BY IMMUNOASSA Y Non Reactive 10/20 Specimen Type: SERUM No comment entered. Ordering Provider: Pablo STEWART Report Released Date/Time: Oct 21, 2023 02:15 PM Reporting Lab: [address] [address] Performing Lab: [facility] [address] [facility] [address] [facility] HEPATITI S C ANTIBODY (HCV)-AR C HEPATITIS C VIRUS AB [PRESENCE] IN SERUM NON-REAC TIVE 10/20 Specimen Type: SERUM Comment: Hep C Ab: No HCV antibody detected. If recent infection is suspected or other evidence suggests HCV infection, consider HCV nucleic acid testing Ordering Provider: Pablo STEWART Report Released Date/Time: Oct 21, 2023 02:15 PM Reporting Lab: [facility] [address] [facility] [address] Performing Lab: [facility] [address] [address] [facility] BASIC METABOLI C PANEL (fasting ) UREA NITROGEN [MASS/VOLU ME] IN SERUM OR PLASMA 28 mg/dL 7 - 25 10/20 H Specimen Type: SERUM No comment entered. Ordering Provider: Pablo STEWART Report Released Date/Time: Oct 21, 2023 02:15 PM Reporting Lab: [facility] [address] [address] Performing Lab: [facility]N [facility] [address] [facility] [address] [facility] BASIC METABOLI C PANEL (fasting ) GLUCOSE [MASS/VOLU ME] IN SERUM OR PLASMA 147 mg/dL 65 - 100 10/20 H Specimen Type: SERUM No comment entered. Ordering Provider: Pablo STEWART Report Released Date/Time: Oct 21, 2023 02:15 PM Reporting Lab: [facility] [address] [address] Performing Lab: [facility] [address] [address] [facility]ERN [facility] BASIC METABOLI C PANEL (fasting ) SODIUM [MOLES/VOL UME] IN SERUM OR PLASMA 139 mmol/L 135 - 145 10/20 Specimen Type: SERUM No comment entered. Ordering Provider: Pablo STEWART Report Released Date/Time: Oct 21, 2023 02:15 PM Reporting Lab: [facility] [place] [facility] [address] [facility] [address] Performing Lab: [facility] [place] [address] [address] [facility] [place] [facility] BASIC METABOLI C PANEL (fasting ) POTASSIUM [MOLES/VOL UME] IN SERUM OR PLASMA 4.4 mmol/L 3.5 - 5.0 10/20 Specimen Type: SERUM No comment entered. Ordering Provider: Pablo STEWART Report Released Date/Time: Oct 21, 2023 02:15 PM Reporting Lab: [facility] [place] [address] [address] Performing Lab: [facility] [place] [address] [address] [facility] [facility] BASIC METABOLI C PANEL (fasting ) CHLORIDE [MOLES/VOL UME] IN SERUM OR PLASMA 103 mmol/L 100 - 110 10/20 Specimen Type: SERUM No comment entered. Ordering Provider: Pablo STEWART Report Released Date/Time: Oct 21, 2023 02:15 PM Reporting Lab: [facility] [place] [address] [address] Performing Lab: [facility] [place] [address] [address] [facility] [place] [facility] BASIC METABOLI C PANEL (fasting ) CARBON DIOXIDE, TOTAL [MOLES/VOL UME] IN SERUM OR PLASMA 27 meq/L 20 - 30 10/20 Specimen Type: SERUM No comment entered. Ordering Provider: Pablo STEWART Report Released Date/Time: Oct 21, 2023 02:15 PM Reporting Lab: [facility] [place] [address] [address] Performing Lab: [facility] [place] [address] [place] [address] [facility] [place] [facility] BASIC METABOLI C PANEL (fasting ) CREATININE [MASS/VOLU ME] IN SERUM OR PLASMA 1.74 mg/dL 0.50 - 1.40 10/20 H Specimen Type: SERUM No comment entered. Ordering Provider: Pablo STEWART Report Released Date/Time: Oct 21, 2023 02:15 PM Reporting Lab: [facility] [place] [address] [address] Performing Lab: [facility] [place] [address] [address] [facility] [place] [facility] BASIC METABOLI C PANEL (fasting ) GLOMERULAR FILTRATION RATE/1.73 SQ M.PREDICTE D [VOLUME RATE/AREA] IN SERUM, PLASMA OR BLOOD BY CREATININE -BASED FORMULA (CKD-EPI 2020) 45 mL/min 60 10/20 L Specimen Type: SERUM No comment entered. Ordering Provider: Pablo STEWART Report Released Date/Time: Oct 21, 2023 02:15 PM Reporting Lab: [facility] [place] [address] [address] Performing Lab: [facility] [place] [address] [address] [facility] [place] [facility] LIVER FUNCTION PROTEIN [MASS/VOLU ME] IN SERUM OR PLASMA 6.7 g/dL 6.0 - 8.3 10/20 Specimen Type: SERUM No comment entered. Ordering Provider: Pablo STEWART Report Released Date/Time: Oct 21, 2023 02:15 PM Reporting Lab: [facility] [place] [address] [address] Performing Lab: [facility] [place] [address] [address] [facility] [place] [facility] LIVER FUNCTION ALBUMIN [MASS/VOLU ME] IN SERUM OR PLASMA 4.1 g/dL 3.5 - 5.0 10/20 Specimen Type: SERUM No comment entered. Ordering Provider: Pablo STEWART Report Released Date/Time: Oct 21, 2023 02:15 PM Reporting Lab: [facility] [place] [facility] [address] [facility] [address] Performing Lab: [facility] [place] [facility] [address] [facility] [address] [facility] [place] [facility] LIVER FUNCTION ALKALINE PHOSPHATAS E [ENZYMATIC ACTIVITY/V OLUME] IN SERUM OR PLASMA 84 U/L 40 - 150 10/20 Specimen Type: SERUM No comment entered. Ordering Provider: Pablo STEWART Report Released Date/Time: Oct 21, 2023 02:15 PM Reporting Lab: [facility] [place] [facility] [address] [facility] [address] Performing Lab: [facility] [place] [facility] [address] [facility] [address] [facility] [place] [facility] LIVER FUNCTION ASPARTATE AMINOTRANS FERASE [ENZYMATIC ACTIVITY/V OLUME] IN SERUM OR PLASMA 19 U/L 5 - 34 10/20 Specimen Type: SERUM No comment entered. Ordering Provider: Pablo STEWART Report Released Date/Time: Oct 21, 2023 02:15 PM Reporting Lab: [facility] [place] [facility] [address] [facility] [address] Performing Lab: [facility] [place] [facility] [address] [facility] [address] [facility] [place] [facility] LIVER FUNCTION ALANINE AMINOTRANS FERASE [ENZYMATIC ACTIVITY/V OLUME] IN SERUM OR PLASMA 28 U/L 10/20 Specimen Type: SERUM No comment entered. Ordering Provider: Pablo STEWART Report Released Date/Time: Oct 21, 2023 02:15 PM Reporting Lab: [facility] [place] [facility] [address] [facility] [address] Performing Lab: [facility] [place] [facility] [address] [facility] [address] [facility] [place] [facility] LIVER FUNCTION BILIRUBIN. TOTAL [MASS/VOLU ME] IN SERUM OR PLASMA 0.6 mg/dL 0.2 - 1.2 10/20 Specimen Type: SERUM No comment entered. Ordering Provider: Pablo STEWART Report Released Date/Time: Oct 21, 2023 02:15 PM Reporting Lab: [facility] [place] [address] [address] Performing Lab: [facility] [place] [address] [address] [facility] [place] [facility] LIPID PANEL FASTING CHOLESTERO L [MASS/VOLU ME] IN SERUM OR PLASMA 84 mg/dL 10/20 Specimen Type: SERUM No comment entered. Ordering Provider: Pablo STEWART Report Released Date/Time: Oct 21, 2023 02:15 PM Reporting Lab: [facility] [place] [address] [address] Performing Lab: [facility] [place] [address] [address] [facility] [place] [facility] LIPID PANEL FASTING TRIGLYCERI DE [MASS/VOLU ME] IN SERUM OR PLASMA 87 mg/dL 0 - 150 10/20 Specimen Type: SERUM No comment entered. Ordering Provider: Pablo STEWART Report Released Date/Time: Oct 21, 2023 02:15 PM Reporting Lab: [facility] [place] [address] [address] Performing Lab: [facility] [place] [address] [address] [facility] [place] [facility] LIPID PANEL FASTING CHOLESTERO L IN LDL [MASS/VOLU ME] IN SERUM OR PLASMA BY CALCULATIO N 30 mg/dL 0 - 129 10/20 Specimen Type: SERUM No comment entered. Ordering Provider: Pablo STEWART Report Released Date/Time: Oct 21, 2023 02:15 PM Reporting Lab: [facility] [place] [address] [address] Performing Lab: [facility] [address] [facility] [address] [facility] [facility] [facility]N [facility] LIPID PANEL FASTING CHOLESTERO L.TOTAL/CH OLESTEROL IN HDL [MASS RATIO] IN SERUM OR PLASMA 2.3 10/20 Specimen Type: SERUM No comment entered. Ordering Provider: Pablo STEWART Report Released Date/Time: Oct 21, 2023 02:15 PM Reporting Lab: [facility]PITALRL TRN [facility]ITALUSE[facility] [address] [facility] [address] Performing Lab: [facility]ITALRNOR[facility]ENTERN [facility]ITALUSE[facility] [address] [facility] [address] [facility] LIPID PANEL FASTING CHOLESTERO L IN HDL [MASS/VOLU ME] IN SERUM OR PLASMA 37 mg/dL 40 - 60 10/20 L Specimen Type: SERUM No comment entered. Ordering Provider: Pablo STEWART Report Released Date/Time: Oct 21, 2023 02:15 PM Reporting Lab: [facility]ITALRL TRN [facility]ITALUSE[facility] [address] [facility] [address] Performing Lab: [facility]ITALRL TRN [facility]ITALUSE[address] [address] [facility] HEMOGLOB IN A1C PANEL HEMOGLOBIN A1C/HEMOGL [...] Oct 21, 2023 02:15 PM Reporting Lab: [address] [address] Performing Lab: [address] [address] [facility] [place] URINALYS IS COLOR OF URINE Yellow 10/20 Specimen Type: URINE Comment: If Glucose = >500 and Ketones are positive, please alert the Physician. Ordering Provider: Pablo STEWART Report Released Date/Time: Oct 21, 2023 02:15 PM Reporting Lab: [facility] [place] [facility] [address] [facility] [address] Performing Lab: [facility] [place] [facility] [address] [facility] [address] [facility] [place] URINALYS IS APPEARANCE OF URINE Clear 10/20 Specimen Type: URINE Comment: If Glucose = >500 and Ketones are positive, please alert the Physician. Ordering Provider: Pablo STEWART Report Released Date/Time: Oct 21, 2023 02:15 PM Reporting Lab: [facility] [place] [address] [address] Performing Lab: [facility] [place] [place] [facility] [address] [facility] [address] [facility] [place] [facility] URINALYS IS GLUCOSE [MASS/VOLU ME] IN URINE NEGATIVE mg/dL 10/20 Specimen Type: URINE Comment: If Glucose = >500 and Ketones are positive, please alert the Physician. Ordering Provider: Pablo STEWART Report Released Date/Time: Oct 21, 2023 02:15 PM Reporting Lab: [facility] [place] [facility] [address] [facility] [address] Performing Lab: [facility] [place] [facility] [address] [facility] [address] [facility] [place] URINALYS IS KETONES [MASS/VOLU ME] IN URINE BY TEST STRIP NEGATIVE mg/dL 10/20 Specimen Type: URINE Comment: If Glucose = >500 and Ketones are positive, please alert the Physician. Ordering Provider: Pablo STEWART Report Released Date/Time: Oct 21, 2023 02:15 PM Reporting Lab: [facility] [facility] [address] [facility] [address] Performing Lab: [facility] [place] [facility] [address] [facility] [address] [facility] [place] [facility] URINALYS IS ERYTHROCYT ES [PRESENCE] IN URINE SEDIMENT BY LIGHT MICROSCOPY NEGATIVE mg/dL 10/20 Specimen Type: URINE Comment: If Glucose = >500 and Ketones are positive, please alert the Physician. Ordering Provider: Pablo STEWART Report Released Date/Time: Oct 21, 2023 02:15 PM Reporting Lab: [facility] [place] [facility] [address] [facility] [address] Performing Lab: [facility] [facility] [address] [facility] [address] [facility] [place] [facility] URINALYS IS PROTEIN [MASS/VOLU ME] IN URINE BY TEST STRIP 20 mg/dL 10/20 Specimen Type: URINE Comment: If Glucose = >500 and Ketones are positive, please alert the Physician. Ordering Provider: Pablo STEWART Report Released Date/Time: Oct 21, 2023 02:15 PM Reporting Lab: [facility] [place] [facility] [address] [facility] [address] Performing Lab: [facility] [place] [facility] [address] [facility] [address] [facility] [place] [facility] URINALYS IS NITRITE [PRESENCE] IN URINE NEGATIVE mg/dL 10/20 Specimen Type: URINE Comment: If Glucose = >500 and Ketones are positive, please alert the Physician. Ordering Provider: Pablo STEWART Report Released Date/Time: Oct 21, 2023 02:15 PM Reporting Lab: [facility] [facility] [address] [facility] [address] Performing Lab: [facility] [place] [facility] [address] [facility] [address] [facility] [place] [facility] URINALYS IS BILIRUBIN. TOTAL [PRESENCE] IN URINE NEGATIVE mg/dL 10/20 Specimen Type: URINE Comment: If Glucose = >500 and Ketones are positive, please alert the Physician. Ordering Provider: Pablo STEWART Report Released Date/Time: Oct 21, 2023 02:15 PM Reporting Lab: [facility]ITALRNOR[facility]ENTERN [facility]PITALUSETS [facility] [address] [facility] [address] Performing Lab: [facility]N [facility]ITALUSE[address] [address] [facility]N [facility]ITALUSE [facility] URINALYS IS SPECIFIC GRAVITY OF URINE BY REFRACTOME TRY 1.024 1.016 - 1.022 10/20 H Specimen Type: URINE Comment: If Glucose = >500 and Ketones are positive, please alert the Physician. Ordering Provider: Pablo STEWART Report Released Date/Time: Oct 21, 2023 02:15 PM Reporting Lab: [facility]N [facility]ITALUSE[address] [address] Performing Lab: [facility]ITALRNOR[facility]ENTERN [facility]ITALUSE[address] [address] [facility]USE [facility] URINALYS IS PH OF URINE BY TEST STRIP 6.0 5.0 - 9.0 10/20 Specimen Type: URINE Comment: If Glucose = >500 and Ketones are positive, please alert the Physician. Ordering Provider: Pablo STEWART Report Released Date/Time: Oct 21, 2023 02:15 PM Reporting Lab: [facility]ITALN [facility]ITALUSE[address] [address] Performing Lab: [facility]PITALRHELEN KELLER HOSPITALTRN [facility]PITALUSE[address] [address] [facility]N [facility]PITALUSE [facility] URINALYS IS UROBILINOG EN [MASS/VOLU ME] IN URINE BY TEST STRIP <2.0mg/d L <2.0 - 2.0 10/20 Specimen Type: URINE Comment: If Glucose = >500 and Ketones are positive, please alert the Physician. Ordering Provider: Pablo STEWART Report Released Date/Time: Oct 21, 2023 02:15 PM Reporting Lab: [facility] [place] [facility] [address] [facility] [address] Performing Lab: [facility] [place] [facility] [address] [facility] [address] [facility] [place] [facility] URINALYS IS LEUKOCYTE ESTERASE [PRESENCE] IN URINE BY TEST STRIP NEGATIVE 10/20 Specimen Type: URINE Comment: If Glucose = >500 and Ketones are positive, please alert the Physician. Ordering Provider: Pablo STEWART Report Released Date/Time: Oct 21, 2023 02:15 PM Reporting Lab: [facility] [place] [facility] [address] [facility] [address] Performing Lab: [facility] [place] [facility] [address] [facility] [address] [facility] [place] [facility] MICROALB UMIN CREATINI NE RATIO PANEL MICROALBUM IN/CREATIN INE [MASS RATIO] IN URINE 6.2 mg/g 0 - 29.9 10/20 Specimen Type: URINE No comment entered. Ordering Provider: Pablo STEWART Report Released Date/Time: Oct 21, 2023 02:15 PM Reporting Lab: [facility] [place] [facility] [address] [facility] [address] Performing Lab: [facility] [place] [facility] [address] [facility] [address] [facility] [place] [facility] MICROALB UMIN CREATINI NE RATIO PANEL MICROALBUM IN [MASS/VOLU ME] IN URINE 1.5 mg/dL 10/20 Specimen Type: URINE No comment entered. Ordering Provider: Pablo STEWART Report Released Date/Time: Oct 21, 2023 02:15 PM Reporting Lab: [facility] [place] [facility] [address] [facility] [address] Performing Lab: [facility] [place] [facility] [address] [facility] [address] [facility] [place] [facility] MICROALB UMIN CREATINI NE RATIO PANEL CREATININE [MASS/VOLU ME] IN URINE 240.98 mg/dL 10/20 Specimen Type: URINE No comment entered. Ordering Provider: Pablo STEWART Report Released Date/Time: Oct 21, 2023 02:15 PM Reporting Lab: [facility] [place] [facility] [address] [facility] [address] Performing Lab: [facility] [place] [facility] [address] [facility] [address] [facility] URIC ACID URATE [MASS/VOLU ME] IN SERUM OR PLASMA 5.4 mg/dL 3.5 - 7.2 10/20 Specimen Type: SERUM No comment entered. Ordering Provider: Pablo STEWART Report Released Date/Time: Oct 21, 2023 02:15 PM Reporting Lab: [facility] [place] [facility] [address] [facility] [address] Performing Lab: [facility] [place] [facility] [address] [facility] [address] [facility] [place] [facility] Vital Signs Combined list of inpatient [...] [facility] [place] En[facility] [id number] 10/11 [facility] En[facility] [id number] 10/11 [facility] En[facility] [id number] 10/14 [facility] En[facility] [id number] 10/14 [facility] OFFICE O/P NEW MOD 45 MIN [id number] Diagnos is: ICD-10- CM 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, unspeci MARILUZ Grider 10/20 [facility] [id number] Diagnos is: ICD-10- CM E66.09 Other obesity due to excess calorie s MANEKAS,DI NA L 11/17 [facility] En[facility] [id number] 11/25 [facility] En[facility] [id number] Diagnos is: ICD-10- CM E66.09 Other obesity due to excess calorie s MANEKAS,DI NA L 12/13 [facility] En[facility] [id number] 01/10 [facility] En[facility] [id number] Diagnos is: ICD-10- CM E66.09 Other obesity due to excess calorie s MANEKAS,DI NA L 01/13 [facility] En[facility] [id number] 02/20 [facility] En[facility] [id number] 1. Diagnos is: ICD-10- CM E66.09 Other obesity due to excess calorie s MANEKAS,DI NA L 02/20 [facility] Out[facility] Encounter [id number] SARAH GARCIA ISTOPHER E 02/23 [facility] Encounter [id number] Diagnos is: ICD-10- CM E66.09 Other obesity due to excess calorie s MANEKAS,DI NA L 03/13 [facility] [id number] 03/27 [facility] Encounter [id number] Diagnos is: ICD-10- CM E66.09 Other obesity due to excess calorie s MANEKAS,DI NA L 04/14 [facility] [id number] 05/02 [facility] [id number] 11/08 [facility] Social History Combined list of available smoking, tobacco, and other social 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 Social History Type Response Date Comment Sourc e Tobacco smoking status NHIS [facility] NEVER USED 10/15/2023 [facility]
--- NOTE | ~2025-02-27 | FL_ITS ---
EXAMINATION: XR FLUOROSCOPY WITH IMAGES CLINICAL INFORMATION: SI joint pain management injections. COMPARISON: None available. TECHNIQUE: Fluoroscopy provided to: Dr. Najera Fluoroscopy time: 0.3 minutes DAP: 0.108 mGycm2 Images: 4 FINDINGS: Fluoroscopy fluoroscopic spot images obtained during bilateral SI joint injection for pain management. Please refer to the full operative report for details. FL/FL guidance in treatment room IMPRESSION: Fluoroscopic guidance. Electronically signed by: Ld Kumar MD 02/28/2025 10:46 AM EDT
--- OUTSIDE RECORDS SUMMARY | 2025-02-27 06:22 | XMS_ITS | Clinical Summary ---
Author Organization [facility] Address [address] [facility] [address] [place] [address] Phone Care Team Providers Care Professional Fighter Name Role Phone Gabby Kelly MD Primary Care Provider [phone] Allergies No known active allergies Medications Multiple Vitamins-[place] als (MULTIVITAMIN ADULT EXTRA C PO) Take [...] Influenza Vaccine (#1) 2025 Insurance [place] [facility] [place] [facility] Care Teams Professional Fighter Relationship Specialty Start Date End Date Gabby Kelly MD [facility] [place] [address] PCP - General 07/08/20
--- OUTSIDE RECORDS SUMMARY | 2025-02-27 06:22 | XMS_ITS | Patient Health Record ---
Author Organization [facility] Tavon brittany Lyndsey Address [address] [facility] [place] [address] Care Team Providers Care Extractions Technologist Name Role Phone Robin Pierre Primary Care Provider Unavailabl e Black, Stephanie Unavailable [phone] Reason For Referral No Information Medications Medication [...] Problem Acquired hammer toe of right foot ([id number] ) Other hammer toe(s) (acquired), right foot (M20.41) Active confirmed Problem Acquired hammer toe of left foot ([id number] ) Other hammer toe(s) (acquired), left foot (M20.42) Active confirmed Problem Polyneuropathy due to type 2 diabetes mellitus (957223678) Type 2 diabetes mellitus with diabetic polyneuropathy (E11.42) Active confirmed Plan Of Treatment Pending Test Test Name Order Date X ray : Foot, right 3V 09/16/2017 [id number] NAIL, 1-5 09/05/2018 [id number] NAIL, 1-5 03/18/2017 [id number] NAIL, 1-5 09/16/2017 [id number] Plate 09/05/2018 [id number] SKIN LESIONS, 2 TO 4 09/06/19 19 [id number] NAIL(S) 09/05/2018 [id number] NAIL(S) 09/16/2017 [id number] NAIL(S) 03/18/2017 Medical (General) History Medical History History ICD Code Anxiety Back,Hip,and Knee pain Depression Diabetic Gout High blood pressure Numbness Surgical History Surgery Date(Month/Year) Hospitalization History Reason Date(Month/Year) [facility] 01[facility]07/17 [facility] ER - recurrent cellulitis 07/2018
--- OUTSIDE RECORDS SUMMARY | 2025-02-27 06:22 | XMS_ITS | Clinical Summary ---
Author Organization [facility] Address [address] [place] [address] Care Team Providers Care Radio Personality Name Role Phone Gabby Kelly Primary Care Provider [phone] Allergies No known active allergies Medications amLODIPine [...] 03/30/2024, 05/2023, 03/09/2022, Additional history exists Insurance [facility] Care Teams Radio Personality Relationship Specialty Start Date End Date Robin, Gabby [facility] ORALIA Wallace [id number] PCP - General Internal Medicine 08/15/24
== END 2025-02-27 06:17 | disposition home or self-care (01) ==
LOC: CF 06:16
PROVIDERS: Visit Provider Anesthesiology
DX: M46.1 Sacroiliitis, not elsewhere classified (principal); M53.3 Sacrococcygeal disorders, not elsewhere classified
CPT/HCPCS: 27096; J2003; J2795; Q9967

== ENCOUNTER 2025-02-27 13:03 | Outpatient (AMB) | payer OTHER, SELFPAY ==
--- OUTSIDE RECORDS SUMMARY | 2024-12-26 01:50 | XMS_ITS | Continuity of Care Document ---
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 Source INFLUENZA, UNSPECIFIED FORMULATION 2022 88 complet ed HISTORICA L INFORMATI ON - FROM OTHER REGISTRY, [facility] [place] COVID-19 (MODERNA), MRNA, LNP-S, PF, 100 MCG/0.5ML DOSE OR 50 MCG/0.25ML DOSE 2020 207 complet ed Booster for Series, HISTORICA L INFORMATI ON - FROM OTHER PROVIDER, OR [facility] [place] COVID-19 (PFIZER), MRNA, LNP-S, PF, 30 MCG/0.3 ML DOSE 2 2020 208 complet ed HISTORICA L INFORMATI ON - FROM OTHER PROVIDER, OR [facility] [place] COVID-19 (PFIZER), MRNA, LNP-S, PF, 30 MCG/0.3 ML DOSE 1 2020 208 complet ed HISTORICA L INFORMATI ON - FROM OTHER PROVIDER, [facility] [place] [facility] Results Combined list of recent chemistry, hematology and other laboratory results from Department of Defense and Veterans Affairs, ranging from 15 months to all on record, depending upon the facility. Order Name Results Value Reference Range Date Interpretation Specimen Comments Source BASIC METABOLI C PANEL (fasting ) UREA NITROGEN [MASS/VOLU ME] IN SERUM OR PLASMA 28 mg/dL 7 - 25 10/20 H Specimen Type: SERUM No comment entered. Ordering Provider: Pablo STEWART Report Released Date/Time: Oct 21, 2023 02:15 PM Reporting Lab: [facility] [place] [address] [address] Performing Lab: [facility] [place] [facility] [address] [facility] [address] [facility] [place] [facility] BASIC METABOLI C PANEL (fasting ) GLUCOSE [MASS/VOLU ME] IN SERUM OR PLASMA 147 mg/dL 65 - 100 10/20 H Specimen Type: SERUM No comment entered. Ordering Provider: Pablo STEWART Report Released Date/Time: Oct 21, 2023 02:15 PM Reporting Lab: [facility] [place] [address] [address] Performing Lab: [facility] [facility] [address] [facility] [address] [facility] [place] [facility] BASIC METABOLI C PANEL (fasting ) SODIUM [MOLES/VOL UME] IN SERUM OR PLASMA 139 mmol/L 135 - 145 10/20 Specimen Type: SERUM No comment entered. Ordering Provider: Pablo STEWART Report Released Date/Time: Oct 21, 2023 02:15 PM Reporting Lab: [facility] [place] [facility] [address] [facility] [address] Performing Lab: [facility] [address] [facility] [address] [facility]ENTERTRN [facility] BASIC METABOLI C PANEL (fasting ) POTASSIUM [MOLES/VOL UME] IN SERUM OR PLASMA 4.4 mmol/L 3.5 - 5.0 10/20 Specimen Type: SERUM No comment entered. Ordering Provider: Pablo STEWART Report Released Date/Time: Oct 21, 2023 02:15 PM Reporting Lab: [facility] [address] [facility] [address] Performing Lab: [facility] [address] [facility] [address] [facility]ITALRNOR[facility] CENTERTRN [facility] BASIC METABOLI C PANEL (fasting ) CHLORIDE [MOLES/VOL UME] IN SERUM OR PLASMA 103 mmol/L 100 - 110 10/20 Specimen Type: SERUM No comment entered. Ordering Provider: Pablo STEWART Report Released Date/Time: Oct 21, 2023 02:15 PM Reporting Lab: [place] [facility] [place] [facility] [address] [facility] [address] Performing Lab: [facility] [address] [facility] [address] [facility]ITALRNORTH AL[facility] CENTERTRN [facility]USE [facility] BASIC METABOLI C PANEL (fasting ) CARBON DIOXIDE, TOTAL [MOLES/VOL UME] IN SERUM OR PLASMA 27 meq/L 20 - 30 10/20 Specimen Type: SERUM No comment entered. Ordering Provider: VANWAGNER,W ILLIAM F Report Released Date/Time: Oct 21, 2023 02:15 PM Reporting Lab: [address] [address] Performing Lab: [address] [address] [facility] BASIC METABOLI C PANEL (fasting ) CREATININE [MASS/VOLU ME] IN SERUM OR PLASMA 1.74 mg/dL 0.50 - 1.40 10/20 H Specimen Type: SERUM No comment entered. Ordering Provider: Pablo STEWART Report Released Date/Time: Oct 21, 2023 02:15 PM Reporting Lab: [address] [address] Performing Lab: [address] [address] [facility] BASIC METABOLI C PANEL (fasting ) GLOMERULAR FILTRATION RATE/1.73 SQ M.PREDICTE D [VOLUME RATE/AREA] IN SERUM, PLASMA OR BLOOD BY CREATININE -BASED FORMULA (CKD-EPI 2020) 45 mL/min 60 10/20 L Specimen Type: SERUM No comment entered. Ordering Provider: Pablo STEWART Report Released Date/Time: Oct 21, 2023 02:15 PM Reporting Lab: [address] [address] Performing Lab: [address] [address] [facility] HEMOGLOB IN A1C PANEL HEMOGLOBIN A1C/HEMOGL [...] Oct 21, 2023 02:15 PM Reporting Lab: [facility]ITALRCHOCTAW [facility]AL HOSPITALN [address] [address] Performing Lab: [facility]ITALRCHOCTAW GENERAL HOSPITALN [facility] [address] [facility] [address] [facility]ITALRCHOCTAW GENERAL HOSPITALN [facility] HEPATITI S A ANTIBODY (IGG) HEPATITIS A VIRUS IGG AB [PRESENCE] IN SERUM Non Reactive 10/20 Specimen Type: SERUM Comment: Hep A IgG: A 'Non-reacti ve' result indicates no anti-HAV IgG was detected. Ordering Provider: Pablo STEWART Report Released Date/Time: Oct 21, 2023 02:15 PM Reporting Lab: [facility]ITALRCHOCTAW [facility]AL HOSPITALN [address] [address] Performing Lab: [facility] [address] [facility] [address] [facility] HEPATITI S B SURFACE ANTIBODY (HBsAb)- WH HEPATITIS B VIRUS SURFACE AB [PRESENCE] IN SERUM BY IMMUNOASSA Y Non Reactive 10/20 Specimen Type: SERUM No comment entered. Ordering Provider: Pablo STEWART Report Released Date/Time: Oct 21, 2023 02:15 PM Reporting Lab: [facility]ITALRCHOCT[facility]OSPITALN [address] [address] Performing Lab: [facility]ITALRCHOCTAW [facility] HOSPITALN [facility] [address] [facility] [address] [facility]N [facility] HEPATITI S C ANTIBODY (HCV)-AR C HEPATITIS C VIRUS AB [PRESENCE] IN SERUM NON-REAC TIVE 10/20 Specimen Type: SERUM Comment: Hep C Ab: No HCV antibody detected. If recent infection is suspected or other evidence suggests HCV infection, consider HCV nucleic acid testing Ordering Provider: Pablo STEWART Report Released Date/Time: Oct 21, 2023 02:15 PM Reporting Lab: [facility] [address] [address] Performing Lab: [facility] [place] [facility] [address] [facility] [address] [facility] [place] [facility] LIPID PANEL FASTING CHOLESTERO L [MASS/VOLU ME] IN SERUM OR PLASMA 84 mg/dL 10/20 Specimen Type: SERUM No comment entered. Ordering Provider: Pablo STEWART Report Released Date/Time: Oct 21, 2023 02:15 PM Reporting Lab: [facility] [place] [facility] [address] [facility] [address] Performing Lab: [facility] [place] [facility] [address] [facility] [address] [facility] [place] [facility] LIPID PANEL FASTING TRIGLYCERI DE [MASS/VOLU ME] IN SERUM OR PLASMA 87 mg/dL 0 - 150 10/20 Specimen Type: SERUM No comment entered. Ordering Provider: Pablo STEWART Report Released Date/Time: Oct 21, 2023 02:15 PM Reporting Lab: [facility] [place] [facility] [address] [facility] [address] Performing Lab: [facility] [place] [facility] [address] [facility] [address] [facility] [place] [facility] LIPID PANEL FASTING CHOLESTERO L IN LDL [MASS/VOLU ME] IN SERUM OR PLASMA BY CALCULATIO N 30 mg/dL 0 - 129 10/20 Specimen Type: SERUM No comment entered. Ordering Provider: Pablo STEWART Report Released Date/Time: Oct 21, 2023 02:15 PM Reporting Lab: [facility] [place] [facility] [address] [facility] [address] Performing Lab: [facility] [place] [facility] [address] [facility] [address] [facility] [place] [facility] LIPID PANEL FASTING CHOLESTERO L.TOTAL/CH OLESTEROL IN HDL [MASS RATIO] IN SERUM OR PLASMA 2.3 10/20 Specimen Type: SERUM No comment entered. Ordering Provider: Pablo STEWART Report Released Date/Time: Oct 21, 2023 02:15 PM Reporting Lab: [facility] [place] [facility] [address] [facility] [address] Performing Lab: [facility] [place] [facility] [address] [facility] [address] [facility] [place] [facility] LIPID PANEL FASTING CHOLESTERO L IN HDL [MASS/VOLU ME] IN SERUM OR PLASMA 37 mg/dL 40 - 60 10/20 L Specimen Type: SERUM No comment entered. Ordering Provider: Pablo STEWART Report Released Date/Time: Oct 21, 2023 02:15 PM Reporting Lab: [facility] [place] [facility] [address] [facility] [address] Performing Lab: [facility] [place] [facility] [address] [facility] [address] [place] [facility] [place] [facility] LIVER FUNCTION PROTEIN [MASS/VOLU ME] IN SERUM OR PLASMA 6.7 g/dL 6.0 - 8.3 10/20 Specimen Type: SERUM No comment entered. Ordering Provider: Pablo STEWART Report Released Date/Time: Oct 21, 2023 02:15 PM Reporting Lab: [facility] [place] [facility] [address] [facility] [address] Performing Lab: [facility] [place] [facility] [address] [facility] [address] [facility] [place] [facility] LIVER FUNCTION ALBUMIN [MASS/VOLU ME] IN SERUM OR PLASMA 4.1 g/dL 3.5 - 5.0 10/20 Specimen Type: SERUM No comment entered. Ordering Provider: Pablo STEWART Report Released Date/Time: Oct 21, 2023 02:15 PM Reporting Lab: [facility] [place] [facility] [address] [facility] [address] Performing Lab: [facility] [place] [facility] [address] [facility] [address] [facility] [place] [facility] LIVER FUNCTION ALKALINE PHOSPHATAS E [ENZYMATIC ACTIVITY/V OLUME] IN SERUM OR PLASMA 84 U/L 40 - 150 10/20 Specimen Type: SERUM No comment entered. Ordering Provider: Pablo STEWART Report Released Date/Time: Oct 21, 2023 02:15 PM Reporting Lab: [facility] [place] [facility] [address] [facility] [address] Performing Lab: [facility] [place] [facility] [address] [facility] [address] [facility] [place] [facility] LIVER FUNCTION ASPARTATE AMINOTRANS FERASE [ENZYMATIC ACTIVITY/V OLUME] IN SERUM OR PLASMA 19 U/L 5 - 34 10/20 Specimen Type: SERUM No comment entered. Ordering Provider: Pablo STEWART Report Released Date/Time: Oct 21, 2023 02:15 PM Reporting Lab: [facility] [place] [address] [address] Performing Lab: [facility] [place] [address] [address] [place] [facility] [place] [facility] LIVER FUNCTION ALANINE AMINOTRANS FERASE [ENZYMATIC ACTIVITY/V OLUME] IN SERUM OR PLASMA 28 U/L 10/20 Specimen Type: SERUM No comment entered. Ordering Provider: Pablo STEWART Report Released Date/Time: Oct 21, 2023 02:15 PM Reporting Lab: [facility] [place] [address] [address] Performing Lab: [facility] [place] [facility] [address] [facility] [address] [facility] [place] [facility] LIVER FUNCTION BILIRUBIN. TOTAL [MASS/VOLU ME] IN SERUM OR PLASMA 0.6 mg/dL 0.2 - 1.2 10/20 Specimen Type: SERUM No comment entered. Ordering Provider: Pablo STEWART Report Released Date/Time: Oct 21, 2023 02:15 PM Reporting Lab: [facility] [place] [address] [address] Performing Lab: [facility] [place] [address] [address] [facility] [place] [facility] MICROALB UMIN CREATINI NE RATIO PANEL MICROALBUM IN/CREATIN INE [MASS RATIO] IN URINE 6.2 mg/g 0 - 29.9 10/20 Specimen Type: URINE No comment entered. Ordering Provider: Pablo STEWART Report Released Date/Time: Oct 21, 2023 02:15 PM Reporting Lab: [facility] [place] [place] [facility] [address] [facility] [address] Performing Lab: [facility] [place] [facility] [address] [facility] [address] [place] [facility] [place] [facility] MICROALB UMIN CREATINI NE RATIO PANEL MICROALBUM IN [MASS/VOLU ME] IN URINE 1.5 mg/dL 10/20 Specimen Type: URINE No comment entered. Ordering Provider: Pablo STEWART Report Released Date/Time: Oct 21, 2023 02:15 PM Reporting Lab: [facility] [place] [facility] [address] [facility] [address] Performing Lab: [facility] [place] [facility] [address] [facility] [address] [place] [facility] [place] [facility] MICROALB UMIN CREATINI NE RATIO PANEL CREATININE [MASS/VOLU ME] IN URINE 240.98 mg/dL 10/20 Specimen Type: URINE No comment entered. Ordering Provider: Pablo STEWART Report Released Date/Time: Oct 21, 2023 02:15 PM Reporting Lab: [facility] [place] [facility] [address] [facility] [address] Performing Lab: [facility] [place] [address] [address] [facility] [place] [facility] URIC ACID URATE [MASS/VOLU ME] IN SERUM OR PLASMA 5.4 mg/dL 3.5 - 7.2 10/20 Specimen Type: SERUM No comment entered. Ordering Provider: Pablo STEWART Report Released Date/Time: Oct 21, 2023 02:15 PM Reporting Lab: [facility] [place] [facility] [address] [facility] [address] Performing Lab: [facility] [place] [facility] [address] [facility] [address] [facility] [place] [facility] URINALYS IS COLOR OF URINE Yellow 10/20 Specimen Type: URINE Comment: If Glucose = >500 and Ketones are positive, please alert the Physician. Ordering Provider: Pablo STEWART Report Released Date/Time: Oct 21, 2023 02:15 PM Reporting Lab: [facility] [place] [facility] [address] [facility] [address] Performing Lab: [facility] [place] [place] [facility] [address] [facility] [address] [place] [facility] [place] [facility] URINALYS IS APPEARANCE OF URINE Clear 10/20 Specimen Type: URINE Comment: If Glucose = >500 and Ketones are positive, please alert the Physician. Ordering Provider: Pablo STEWART Report Released Date/Time: Oct 21, 2023 02:15 PM Reporting Lab: [facility] [place] [facility] [address] [facility] [address] Performing Lab: [facility] [place] [facility] [address] [facility] [address] [facility] [place] [facility] URINALYS IS GLUCOSE [MASS/VOLU ME] IN URINE NEGATIVE mg/dL 10/20 Specimen Type: URINE Comment: If Glucose = >500 and Ketones are positive, please alert the Physician. Ordering Provider: Pablo STEWART Report Released Date/Time: Oct 21, 2023 02:15 PM Reporting Lab: [facility] [place] [facility] [address] [facility] [address] Performing Lab: [facility] [place] [facility] [address] [facility] [address] [facility] [place] [facility] URINALYS IS KETONES [MASS/VOLU ME] IN URINE BY TEST STRIP NEGATIVE mg/dL 10/20 Specimen Type: URINE Comment: If Glucose = >500 and Ketones are positive, please alert the Physician. Ordering Provider: Pablo STEWART Report Released Date/Time: Oct 21, 2023 02:15 PM Reporting Lab: [facility] [place] [facility] [address] [facility] [address] Performing Lab: [facility] [place] [facility] [address] [facility] [address] [facility] [place] [facility] URINALYS IS ERYTHROCYT ES [PRESENCE] IN URINE SEDIMENT BY LIGHT MICROSCOPY NEGATIVE mg/dL 10/20 Specimen Type: URINE Comment: If Glucose = >500 and Ketones are positive, please alert the Physician. Ordering Provider: Pablo STEWART Report Released Date/Time: Oct 21, 2023 02:15 PM Reporting Lab: [facility] [place] [facility] [address] [facility] [address] Performing Lab: [facility] [place] [facility] [address] [facility] [address] [facility] [place] [facility] URINALYS IS PROTEIN [MASS/VOLU ME] IN URINE BY TEST STRIP 20 mg/dL 10/20 Specimen Type: URINE Comment: If Glucose = >500 and Ketones are positive, please alert the Physician. Ordering Provider: Pablo STEWART Report Released Date/Time: Oct 21, 2023 02:15 PM Reporting Lab: [facility] [place] [facility] [address] [facility] [address] Performing Lab: [facility] [place] [facility] [address] [facility] [address] [facility] [place] [facility] URINALYS IS NITRITE [PRESENCE] IN URINE NEGATIVE mg/dL 10/20 Specimen Type: URINE Comment: If Glucose = >500 and Ketones are positive, please alert the Physician. Ordering Provider: Pablo STEWART Report Released Date/Time: Oct 21, 2023 02:15 PM Reporting Lab: [facility] [place] [facility] [address] [facility] [address] Performing Lab: [facility] [place] [facility] [address] [place] [address] [facility] URINALYS IS BILIRUBIN. TOTAL [PRESENCE] IN URINE NEGATIVE mg/dL 10/20 Specimen Type: URINE Comment: If Glucose = >500 and Ketones are positive, please alert the Physician. Ordering Provider: Pablo STEWART Report Released Date/Time: Oct 21, 2023 02:15 PM Reporting Lab: [facility] [address] Performing Lab: [facility] [address] [facility] URINALYS IS SPECIFIC GRAVITY OF URINE BY REFRACTOME TRY 1.024 1.016 - 1.022 10/20 H Specimen Type: URINE Comment: If Glucose = >500 and Ketones are positive, please alert the Physician. Ordering Provider: Pablo STEWART Report Released Date/Time: Oct 21, 2023 02:15 PM Reporting Lab: [facility] [address] Performing Lab: [facility] [address] [facility] URINALYS IS PH OF URINE BY TEST STRIP 6.0 5.0 - 9.0 10/20 Specimen Type: URINE Comment: If Glucose = >500 and Ketones are positive, please alert the Physician. Ordering Provider: Pablo STEWART Report Released Date/Time: Oct 21, 2023 02:15 PM Reporting Lab: [facility] [address] Performing Lab: [facility] [address] [facility] URINALYS IS UROBILINOG EN [MASS/VOLU ME] IN URINE BY TEST STRIP <2.0mg/d L <2.0 - 2.0 04/25 /2024 Specimen Type: URINE Comment: If Glucose = >500 and Ketones are positive, please alert the Physician. Ordering Provider: Pablo STEWART Report Released Date/Time: Oct 21, 2023 02:15 PM Reporting Lab: [facility] [place] [facility] [address] [facility] [address] Performing Lab: [facility] [place] [facility] [address] [facility] [address] [facility] [place] [facility] URINALYS IS LEUKOCYTE ESTERASE [PRESENCE] IN URINE BY TEST STRIP NEGATIVE 10/20 Specimen Type: URINE Comment: If Glucose = >500 and Ketones are positive, please alert the Physician. Ordering Provider: Pablo STEWART Report Released Date/Time: Oct 21, 2023 02:15 PM Reporting Lab: [facility] [place] [facility] [address] [facility] [address] Performing Lab: [facility] [place] [facility] [address] [facility] [address] [facility] [place] [facility] Vital Signs Combined list of inpatient [...] [facility] En[facility] [id number] 10/11 [facility] En[facility] [id number] 10/11 [facility] En[facility] [id number] 10/14 [facility] En[facility] [id number] 10/14 [facility] OFFICE O/P NEW MOD 45 MIN [id number] Diagnos is: ICD-10- CM 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, unspeci MARILUZ Grider 10/20 [facility] [id number] Diagnos is: ICD-10- CM E66.09 Other obesity due to excess calorie s MANEKAS,DI NA L 11/17 [facility] En[facility] [id number] 11/25 [facility] [id number] Diagnos is: ICD-10- CM E66.09 Other obesity due to excess calorie s MANEKAS,DI NA L 12/13 [facility] Encounter [id number] 01/10 [facility] Encounter [id number] Diagnos is: ICD-10- CM E66.09 Other obesity due to excess calorie s MANEKAS,DI NA L 01/13 [facility] En[facility] [id number] 02/20 [facility] Encounter [id number] 1. Diagnos is: ICD-10- CM E66.09 Other obesity due to excess calorie s MANEKAS,DI NA L 02/20 [facility] En[facility] [id number] SARAH GARCIA ISTOPHER E 02/23 [facility] Encounter [id number] Diagnos is: ICD-10- CM E66.09 Other obesity due to excess calorie s MANEKAS,DI NA L 03/13 [facility] En[facility] [id number] 03/27 [facility] En[facility] [id number] Diagnos is: ICD-10- CM E66.09 Other obesity due to excess calorie s MANEKAS,DI NA L 04/14 [facility] [id number] 05/02 [facility] [id number] 11/08 [facility] [facility] Social History Combined list of available smoking, tobacco, and other social 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 Social History Type Response Date Comment Sourc e Tobacco smoking status NHIS [facility] NEVER USED 10/15/2023 [facility] [place] [facility]
[2025-02-27 13:16] VITALS: BP 120/71; PULSE 86; RESP 18; O2SAT 95
--- NOTE | 2025-02-27 13:16 | MHC.OFFVIS ---
Vital Signs 02/27/25 13:16 Weight 296 lb BP 120/71 Blood Pressure Location Lt brachial Position Sitting Respiration 18 Pulse 86 Pulse Source Pulse Oximeter Pulse Oximetry (%) 95 Oxygen Delivery Method Room Air Intake Visit Reasons: Bilateral Diagnostic SIJ Injections Recreation Facility Manager Required: No Allergies No Known Allergies Allergy (Verified 02/14/25 13:08) [facility] Medical History Orthostatic hypotension Peripheral neuropathy Obstructive sleep apnea Restless legs syndrome (RLS) Obstructive sleep apnea Chronic pain syndrome Ureteral calculus Fatty liver Gout Kidney stones Depression, major, recurrent Lipid disorder 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, essential [facility] (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 Diabetes 1.5, managed as type 1 Complex regional pain syndrome of both lower extremities Diabetic peripheral neuropathy Spondylosis of lumbar region without myelopathy or radiculopathy Surgical History S/P placement of nerve stimulator Hx of lithotripsy Hx of colonoscopy (~11/10/16) Family History Other Mental health disorder Social History Housing: Condominium Alcohol intake: never Patient Tobacco Use Status: Never used Tobacco e-Cigarette/Vaping Use: Never Used Second Hand Smoke Exposure: No service: No Current occupational status: disabled Cognitive needs: No Hearing needs: No Vision needs: Yes Physical Exam Vital Signs: Last Vital Signs Pulse 86 02/27/25 13:16 Resp 18 02/27/25 13:16 BP 120/71 02/27/25 13:16 Pulse Ox 95 02/27/25 13:16 Oxygen Delivery Method Room Air 02/27/25 13:16 Assessment & Plan Assessment & Plan (1) Sacroiliitis: Code(s): M46.1 - Sacroiliitis, not elsewhere classified Category: Medical (2) Sacroiliac joint pain: Code(s): M53.3 - Sacrococcygeal disorders, not elsewhere classified Category: Medical Plan Bilateral diagnostic sacroiliac joint injection Informed consent was explained thoroughly to the patient.? All questions about benefits and risks for the procedure were answered. Patient came to the operating room and was positioned prone on the operating table with the pillow under the abdomen. The lower back and buttocks of the patient were prepped with ChloraPrep prepped and draped with sterile utility towels.? Sterilely draped C-arm was brought over the operating field and sq picture of patient's pelvis was demonstrated on the screen.? For the right joint tilting C-arm contralateral to the site of the joint the most posterior portion of the joints was superimposed with anterior silhouette of the joint.? Skin was injected in the projection of the joint slightly medial to the location of the joint with 25 gauge 1/2 inch needle using local lidocaine 2% . After that 22 gauge 3 and 1/2 inch needle was driven to the right joint in tunnel vision fashion.? When needle entered the joint capsule injection of the contrast was performed demonstrating intra-articular and minimally periarticular spread of the contrast.? After that 5 cc. of ropivacaine 0.5% was injected in the joint. After that procedure was repeated on the left side in mirroring fashion. Upon completion of the injections the needle was removed and Band-Aid was applied.? Upon completion of the injection patient was taken outside of the operating room to the recovery room where recovered uneventfully. Coding Level of Care Code Procedure Only Diagnoses Sacroiliitis M46.1 Sacroiliac joint pain M53.3
--- OUTSIDE RECORDS SUMMARY | 2025-02-27 14:24 | XMS_ITS | Clinical Summary ---
Author Organization [facility] Address [address] [facility] [address] [place] [address] Phone Care Team Providers Care Portable Track Line Marker Name Role Phone Gabby Kelly MD Primary Care Provider [phone] Allergies No known active allergies Medications Multiple Vitamins-B[place] als (MULTIVITAMIN ADULT EXTRA C PO) Take [...] Influenza Vaccine (#1) 2025 Insurance Medicaid [facility] Medicaid [facility] Care Teams Portable Track Line Marker Relationship Specialty Start Date End Date Gabby Kelly MD [facility] [place] [address] PCP - General 07/08/20
--- OUTSIDE RECORDS SUMMARY | 2025-02-27 14:24 | XMS_ITS | Clinical Summary ---
Author Organization [facility] Address [address] [place] [address] Care Team Providers Care Financial Operations Analyst Name Role Phone Gabby Kelly Primary Care Provider [phone] Allergies No known active allergies Medications amLODIPine [...] 03/30/2024, 05/2023, 03/09/2022, Additional history exists Insurance [facility] Care Teams Financial Operations Analyst Relationship Specialty Start Date End Date Robin, Gabby [facility] ORALIA Wallace [phone] PCP - General Internal Medicine 08/15/24
== END 2025-02-27 14:13 | disposition home or self-care (01) ==
LOC: HO.PMCPRC 13:03
PROVIDERS: PCP Internal Medicine; Visit Provider Anesthesiology
DX: M46.1 Sacroiliitis, not elsewhere classified (principal); M53.3 Sacrococcygeal disorders, not elsewhere classified
CPT/HCPCS: 27096

== ENCOUNTER 2025-03-01 09:44 | Outpatient (AMB) | payer OTHER, SELFPAY ==
[2025-03-01 09:50] VITALS: BP 110/65; PULSE 79; RESP 18; O2SAT 96
--- NOTE | 2025-03-01 09:50 | MHC.OFFVIS ---
Vital Signs 03/01/25 09:50 Weight 287 lb BP 110/65 Blood Pressure Location Lt brachial Respiration 18 Pulse 79 Pulse Source Pulse Oximeter Pulse Oximetry (%) 96 Oxygen Delivery Method Room Air Intake Visit Reasons: S/P Bilateral Diagnostic SIJ Injections Manager Metal Required: No Allergies No Known Allergies Allergy (Verified 03/01/25 09:49) HPI Comments Details: Adama is back in my office after diagnostic bilateral sacroiliac joint injection on 02/27/2025. He reports at least 75% pain improvement, he reports excellent mobility, excellent activities of daily living, better social interactions. For the 1st 5 hours after the procedure his pain was ranging from 1/10 to 2/10 while before the procedure his pain was 7/10. He still reports pain 3/10 2 days after the procedure. I offered him therapeutic sacroiliac joint injections without sedation. Patient agreed to go for the procedure. I also prescribed him today sacroiliac joint belt. I demonstrated the patient how to were sacroiliac joint belt. His was in the presence, I explained to them that he has to were sacroiliac joint belt except the times when he goes to the bathroom or taking shower. He is concerned for upper back pain however he points out today at the location on the almost lateral position of the 10's rib on the right. It sounds like myofascial pain syndrome. I recommended him to continue physical therapy home exercise program. I offered him to do physical therapy however the patient did not want to go for PT now. Prior: diagnostic medial branch block L3-L4 L5 bilateral. Unfortunately if pain relief was felt by the patient it was very minimal. Before the procedure he reported his pain 3/10. After the procedure his pain was 2/10 to 3/10. It went to 6/10 at the 6 hour after the procedure. And although the patient reported that he performed most painful maneuvers which usually aggravate his pain I can not consider this much of the pain relief as the indication on pain generators. I decided to schedule him for diagnostic sacroiliac joint injection bilateral. He requests me to perform this procedure late at night because it this is when his pain is most severe. The latest I can schedule him is 330 in the afternoon. The patient agreed to go for the procedure. He also reported that he tried to take his baclofen increasing the dose 3 fold. He reports some improvement on this dose. I will prescribe him 20 mg baclofen 4 times a day so he can not get some alleviation of his pain. Prior:. He reports shooting pain with attempt to flex forward and he reports pain aggravation with flexing backwards. he reports most aggravating pain with standing but not with walking. He went for MRI and results of the MRI dictated as below. I would like to perform bilateral medial branch block on this patient. If this injection will not result in good pain relief I will consider repeating diagnostic bilateral sacroiliac joint injection which in the past gave patient 3 weeks of pain relief. Only after those injections will be failing the relief of the pain of the patient is I will consider transforaminal epidural steroid injection for this patient. Prior: Results of the trial of SCS Nevro: He reports excellent pain relief specially in bilateral lower extremities. He reports that he is able to sleep very well with device on he reports minor pain in the feet but it does not prevent him to take good sleep. He also reports the device helps for the lower back pain improved his mobility activities of daily living and improve his social interactions. He is very much interested in implantation of the device on permanent basis. He is suffering from spondylosis of the lumbar spine disc degeneration lumbar spine but his main problem is diabetic polyneuropathy of bilateral lower extremities. SI joint injection results 3 weeks of pain relieve on diagnostic injection 100%.? The pain under right scapula is another problem for this patient.? I told him that this pain can be treated potentially as a myofascial pain syndrome and I can perform once he is here in my office a trigger point injection into this area hopefully it will give him good pain relief.? ?He is under care of urologist and urologist thinks that this pain might be related to his kidney stones.? However the larger stone he has? is on the left side and that he experiences pain only on the right.? He is going for shockwave lithotripsy with this urologist in the future to destroyed the stones.? As of his polyneuropathy it stems out from diabetes.? His hemoglobin A1c is equal to 8. it is certain improvement from number in around 10. however unfortunately it is not good enough to reduce polyneuropathy.? He reports significant bilateral pain as burning sensations pins and needles in bilateral feet in the is distribution of the low socks.? We discussed the situation with peripheral neuropathy.? Explained to him that unless he would decrease his hemoglobin A1c below 6 I would not expect his pain getting better. ?He is suffering from axial lower back pain and peripheral diabetic polyneuropathy.? ? He was complaining on the pain in the lateral hip area, he was sent for hip x-ray which demonstrated almost no pathology normal alignment no cartilage loss. He went for consult with Dr. Rodrigez a neurosurgeon.? There were no indications to do any surgical interventions by Dr. Rodrigez. 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 Diabetes 1.5, managed as type 1 Complex regional pain syndrome of both lower extremities Diabetic peripheral neuropathy Spondylosis of lumbar region without myelopathy or radiculopathy Surgical History S/P placement of nerve stimulator Hx of lithotripsy Hx of colonoscopy (~11/10/16) Family History Other Mental health disorder Social History Housing: Condominium Alcohol intake: never Patient Tobacco Use Status: Never used Tobacco e-Cigarette/Vaping Use: Never Used Second Hand Smoke Exposure: No service: No Current occupational status: disabled Cognitive needs: No Hearing needs: No Vision needs: Yes Review of Systems Const All systems reviewed & are unremarkable except as noted in HPI and below Physical Exam Vital Signs: Last Vital Signs Pulse 79 03/01/25 09:50 Resp 18 03/01/25 09:50 BP 110/65 03/01/25 09:50 Pulse Ox 96 03/01/25 09:50 Oxygen Delivery Method Room Air 03/01/25 09:50 Const General: cooperative and no acute distress Nutritional Appearance: obese Limitations: no limitations HEENT Head: Yes normocephalic Ears: hearing grossly normal bilaterally Neck Neck: Yes full ROM and Yes supple Resp Effort & Inspection: normal respiratory effort and able to speak in complete sentences Back/Spine/Pelvis Other: Darryl test is positive bilaterally. Pelvic compression test is positive bilaterally. Pelvic distraction test is positive bilaterally. Stinchfield test is positive bilaterally. 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 myelopathy or radiculopathy: Code(s): M47.816 - Spondylosis without myelopathy or radiculopathy, lumbar region Category: Medical (4) Diabetic peripheral neuropathy: Code(s): E11.42 - Type 2 diabetes mellitus with diabetic polyneuropathy Category: Medical (5) Complex regional pain syndrome of both lower extremities: Code(s): G90.523 - Complex regional pain syndrome I of lower limb, bilateral Category: Medical Qualifiers: Complex regional pain syndrome type: type I Qualified Code(s): G90.523 - Complex regional pain syndrome I of lower limb, bilateral (6) Sacroiliac joint pain: Code(s): M53.3 - Sacrococcygeal disorders, not elsewhere classified Category: Medical (7) Sacroiliitis: Code(s): M46.1 - Sacroiliitis, not elsewhere classified Category: Medical (8) 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 The patient in the past also had diagnostic sacroiliac joint injection which resulted in 3 weeks of pain relief. Unfortunately diagnostic medial branch block L3-L4 does ramus L5 resulted in minimal improvement. I repeated diagnostic sacroiliac joint injection and patient had very good pain relief. I offered him to perform therapeutic sacroiliac joint injection. I also prescribe him sacroiliac joint belt. I will see him after the procedure on his therapeutic sacroiliac joint injections bilateral. Patient Instructions: I here by testify that I spent 42 minutes in conversation with this patient as well as planning his care and organizing this note. 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
--- OUTSIDE RECORDS SUMMARY | 2025-03-01 10:36 | XMS_ITS | Patient Health Record ---
Author Organization [facility] Tavon brittany Lyndsey Address [address] [facility] [place] [address] Care Team Providers Care Autographer Name Role Phone Robin Pierre Primary Care Provider Unavailabl e Black, Stephanie Unavailable [phone] Reason For Referral No Information Medications Medication [...] Problem Acquired hammer toe of right foot ([id number] ) Other hammer toe(s) (acquired), right foot (M20.41) Active confirmed Problem Acquired hammer toe of left foot ([id number] ) Other hammer toe(s) (acquired), left foot (M20.42) Active confirmed Problem Polyneuropathy due to type 2 diabetes mellitus (931357937) Type 2 diabetes mellitus with diabetic polyneuropathy (E11.42) Active confirmed Plan Of Treatment Pending Test Test Name Order Date X ray : Foot, right 3V 09/16/2017 [id number] NAIL, 1-5 09/05/2018 [id number] NAIL, 1-5 03/18/2017 [id number] NAIL, 1-5 09/16/2017 [id number] Plate 09/05/2018 [id number] SKIN LESIONS, 2 TO 4 09/06/19 19 [id number] NAIL(S) 09/05/2018 [id number] NAIL(S) 09/16/2017 [id number] NAIL(S) 03/18/2017 Medical (General) History Medical History History ICD Code Anxiety Back,Hip,and Knee pain Depression Diabetic Gout High blood pressure Numbness Surgical History Surgery Date(Month/Year) Hospitalization History Reason Date(Month/Year) [facility]07[facility]17 [facility] ER - recurrent cellulitis 07/2018
--- OUTSIDE RECORDS SUMMARY | 2025-03-01 10:36 | XMS_ITS | Clinical Summary ---
Author Organization [facility] Address [address] [place] [address] Care Team Providers Care Environmental Education Specialist Name Role Phone Gabby Kelly Primary Care Provider [phone] Allergies No known active allergies Medications amLODIPine [...] 03/09/2022, Additional history exists Insurance [facility] Care Teams Environmental Education Specialist Relationship Specialty Start Date End Date Robin, Gabby [facility] ORALIA Wallace [phone] PCP - General Internal Medicine 08/15/24
--- OUTSIDE RECORDS SUMMARY | 2025-03-01 10:36 | XMS_ITS | Clinical Summary ---
Author Organization [facility] Address [address] [facility] [address] [place] [address] Phone Care Team Providers Care Concrete Gun Operator Name Role Phone Gabby Kelly MD Primary Care Provider [phone] Allergies No known active allergies Medications Multiple Vitamins-[place] als (MULTIVITAMIN ADULT EXTRA C PO) Take [...] Influenza Vaccine (#1) 2025 Insurance [place] [facility] [place] [facility] Care Teams Concrete Gun Operator Relationship Specialty Start Date End Date Gabby Kelly [place] [address] PCP - General 07/08/20
== END 2025-03-01 10:11 | disposition home or self-care (01) ==
PROVIDERS: PCP Internal Medicine; Visit Provider Anesthesiology
DX: Z96.89 Presence of other specified functional implants (principal); M16.9 Osteoarthritis of hip, unspecified; M47.816 Spondylosis without myelopathy or radiculopathy, lumbar region; E11.42 Type 2 diabetes mellitus with diabetic polyneuropathy; G90.523 Complex regional pain syndrome I of lower limb, bilateral; M53.3 Sacrococcygeal disorders, not elsewhere classified; M46.1 Sacroiliitis, not elsewhere classified; M47.815 Spondylosis without myelopathy or radiculopathy, thoracolumbar region; M51.369 Other intervertebral disc degeneration, lumbar region without mention of lumbar back pain or lower extremity pain
CPT/HCPCS: 99215

== ENCOUNTER 2025-03-05 12:48 | Outpatient (AMB) | payer OTHER, SELFPAY ==
--- NOTE | 2025-03-05 12:51 | MHC.OFFVIS ---
Vital Signs 03/05/25 12:52 Height 6 ft 4 in Weight 288 lb 8 oz BMI 35.1 BP 112/78 Blood Pressure Location Rt brachial Position Sitting Pulse 85 Pulse Source Pulse Oximeter Pulse Oximetry (%) 98 Oxygen Delivery Method Room Air Intake Visit Reasons: 6m follow up Intake Note: Follow up Peripheral neuropath, unspecified polyneuropathy, KRISTIN and Amnesia Payroll Services Analyst Required: No Accompanied by: Spouse Allergies No Known Allergies Allergy (Verified 03/05/25 12:51) Medication List - Last Reconciled 03/05/25 by Joyce Garsia MD allopurinol 300 mg PO DAILY aripiprazole 10 mg PO BEDTIME aspirin (Erick Low Dose Aspirin) 81 mg PO DAILY 90 days atorvastatin 20 mg PO DAILY 90 days baclofen 20 mg PO QID 30 days blood pressure kit-extra large As directed blood sugar diagnostic (U.S. Silica Ultra Test strips) Test blood sugar once a day bupropion HCl XL 300 mg PO QAM duloxetine 60 mg PO BEDTIME flash glucose scanning reader (Hightower Sonido 2 [place]) As directed flash glucose sensor (Prism Microwaveyle Sonido 2 Sensor kit) As directed gabapentin 1-3 caps orally bedtime; hydrochlorothiazide 25 mg PO DAILY insulin glargine (Lantus Solostar U-100 Insulin) 20 units subcut QPM pen needle, diabetic (AboutTime Pen Needle) As directed penicillin V potassium 250 mg PO BID 90 days potassium citrate ER 20 mEq (2 x 10 mEq (1,080 mg)) PO BID 90 days tirzepatide (weight loss) 5 mg (0.5 mL) subcut QWEEK 90 days trazodone 100 mg PO BEDTIME HPI Comments Details: 59 y/o male patient presents with his for follow up of KRISTIN and memory loss. His memory fluctuates He is compliant with CPAP. 90 day compliance 100 % \ AHI 4 9 hr 46 minutes His souse is worried about his fatigue inspite of using KRISTIN. He has restless legs His last Hg A1C was 6.5 He is on zepbound now. History from last visit ( 05/21)-He has issues with his mask fitting . I do not have his compliance report today . he uses it everyday.His diabetes is not well controlled. He still has cognitive issues, trouble remembering conversations, has trouble finding ways in his neighborhood. He is also confused by long instructions. Pt usually likes to play video games, but is having difficulty playing complex video games lately. Denies difficulty driving or repeating same questions over. states that patient still takes care of all financial stuff and is good at it. The lab result reviewed, B12 level was 1377 and vitamin D and TSH was WNL. The BUN and creatitine level was elevated, he is followed by nephrology. Pt has family hx of autism, and thinks that he has autism. 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 Diabetes 1.5, managed as type 1 Complex regional pain syndrome of both lower extremities Diabetic peripheral neuropathy Spondylosis of lumbar region without myelopathy or radiculopathy Surgical History S/P placement of nerve stimulator Hx of lithotripsy Hx of colonoscopy (~11/10/16) Family History Other Mental health disorder Social History Housing: Condominium Alcohol intake: never Patient Tobacco Use Status: Never used Tobacco e-Cigarette/Vaping Use: Never Used Second Hand Smoke Exposure: No service: No Current occupational status: disabled Cognitive needs: No Hearing needs: No Vision needs: Yes Physical Exam Vital Signs: Last Vital Signs Pulse 85 03/05/25 12:52 BP 112/78 03/05/25 12:52 Pulse Ox 98 03/05/25 12:52 Oxygen Delivery Method Room Air 03/05/25 12:52 BMI result Body Mass Index 35.1 Const General: cooperative and no acute distress Nutritional Appearance: obese Limitations: no limitations HEENT Head: Yes normocephalic Ears: hearing grossly normal bilaterally Neck Neck: Yes full ROM and Yes supple Resp Effort & Inspection: normal respiratory effort and able to speak in complete sentences Psych Appearance: grossly normal Mental Status: mental status grossly normal Affect: normal affect Attitude: cooperative Thought process: Normal thought process present Thought content: Normal thought content present Insight: Good insight present (Psych) Judgement: Good judgement present (Psych) Assessment & Plan Assessment & Plan (1) Obstructive sleep apnea: Comment: Severe degree of KRISTIN. AHI 47/hr with oxygen jeremiah was 75%. Code(s): G47.33 - Obstructive sleep apnea (adult) (pediatric) Category: Medical (2) Memory changes: Code(s): R41.3 - Other amnesia Category: Medical (3) Peripheral neuropathy: Code(s): G62.9 - Polyneuropathy, unspecified Category: Medical Qualifiers: Peripheral neuropathy type: polyneuropathy associated with underlying disease Qualified Code(s): G63 - Polyneuropathy in diseases classified elsewhere Plan Gabapentin 100mg 1-3 caps qhs Continue to use APAP [id number] Advised patient to engage more social and physical activity. will monitor his cognition Medications: New gabapentin 1-3 caps orally bedtime; 90 caps 6RF Coding Level of Care Code Est Pt Level 4 (11045) Complex EM visit Add On G2211 Diagnoses Obstructive sleep apnea G47.33 Memory changes R41.3 Polyneuropathy associated with underlying disease G63 Peripheral neuropathy type: polyneuropathy associated with underlying disease
[2025-03-05 12:52] VITALS: BP 112/78; PULSE 85; O2SAT 98; BMI 35.1
--- OUTSIDE RECORDS SUMMARY | 2025-03-05 14:57 | XMS_ITS | Clinical Summary ---
Author Organization [facility] Address [address] [facility] [address] [place] [address] Phone Care Team Providers Care Drop Hammer Setter Up Name Role Phone Gabby Kelly MD Primary Care Provider [phone] Allergies No known active allergies Medications Multiple Vitamins-Carter als (MULTIVITAMIN ADULT EXTRA C PO) Take [...] Influenza Vaccine (#1) 2025 [place] Medicaid [place] [facility] [place] [facility] Care Teams Drop Hammer Setter Up Relationship Specialty Start Date End Date Gabby Kelly [place] [address] PCP - General 07/08/20
--- OUTSIDE RECORDS SUMMARY | 2025-03-05 14:57 | XMS_ITS | Clinical Summary ---
Author Organization [facility] Address [address] [place] [address] Care Team Providers Care Radiator Cleaner Name Role Phone Gabby Kelly Primary Care Provider [phone] Allergies No known active allergies Medications amLODIPine [...] 03/30/2024, 05/2023, 03/09/2022, Additional history exists Insurance [facility] Care Teams Radiator Cleaner Relationship Specialty Start Date End Date Robin, Gabby [facility] [place] Wallace [phone] PCP - General Internal Medicine 08/15/24
--- OUTSIDE RECORDS SUMMARY | 2025-03-05 14:57 | XMS_ITS | Patient Health Record ---
Author Organization [facility] Tavon brittany Lyndsey Address [address] [facility] [address] Care Team Providers Care Supervisory Clerk Name Role Phone Robin Pierre Primary Care Provider Unavailabl e Black, Stephanie Unavailable [phone] Reason For Referral No Information Medications Medication [...] Problem Acquired hammer toe of right foot ([id number] ) Other hammer toe(s) (acquired), right foot (M20.41) Active confirmed Problem Acquired hammer toe of left foot ([id number] ) Other hammer toe(s) (acquired), left foot (M20.42) Active confirmed Problem Polyneuropathy due to type 2 diabetes mellitus (112147242) Type 2 diabetes mellitus with diabetic polyneuropathy (E11.42) Active confirmed Plan Of Treatment Pending Test Test Name Order Date X ray : Foot, right 3V 09/16/2017 [id number] NAIL, 1-5 09/05/2018 [id number] NAIL, 1-5 03/18/2017 [id number] NAIL, 1-5 09/16/2017 [id number] Plate 09/05/2018 [id number] SKIN LESIONS, 2 TO 4 09/06/19 19 [id number] NAIL(S) 09/05/2018 [id number] NAIL(S) 09/16/2017 [id number] NAIL(S) 03/18/2017 Medical (General) History Medical History History ICD Code Anxiety Back,Hip,and Knee pain Depression Diabetic Gout High blood pressure Numbness Surgical History Surgery Date(Month/Year) Hospitalization History Reason Date(Month/Year) [facility] [place] [facility] [place]
== END 2025-03-05 13:25 | disposition home or self-care (01) ==
LOC: HO.HSMS 12:49
PROVIDERS: PCP Internal Medicine; Visit Provider Psychiatry & Neurology Neurology
DX: G47.33 Obstructive sleep apnea (adult) (pediatric) (principal); R41.3 Other amnesia; G63 Polyneuropathy in diseases classified elsewhere
CPT/HCPCS: 99214

== ENCOUNTER 2025-04-03 06:26 | Outpatient (REF) | payer OTHER, SELFPAY ==
--- NOTE | ~2025-04-03 | FL_ITS ---
EXAMINATION: FL GUIDANCE ONLY HISTORY: M53.3 - Sacrococcygeal disorders, not elsewhere classified COMPARISON: None available. TECHNIQUE: Fluoroscopy time: 14.8 seconds. Cumulative Dose: 5.38 mGy. Images: 4. FINDINGS: Fluoroscopic spot films of the pelvis demonstrate needles and contrast material in the regions of the bilateral sacroiliac joints. FL/FL guidance in treatment room IMPRESSION: Fluoroscopy during procedure. Please see procedure report for additional information. Electronically signed by: Ken Juarez MD 04/03/2025 03:56 PM EDT
--- OUTSIDE RECORDS SUMMARY | 2025-04-03 06:28 | XMS_ITS | Clinical Summary ---
Author Organization [facility] Address [address] [place] [address] Care Team Providers Care Marketing Financial Analyst Name Role Phone Gabby Kelly Primary [...] 03/30/2024, 05/2023, 03/09/2022, Additional history exists Insurance [facility] Care Teams Marketing Financial Analyst Relationship Specialty Start Date End Date Robin, Gabby [facility] [place] Wallace [phone] PCP - General Internal Medicine 08/15/24
--- OUTSIDE RECORDS SUMMARY | 2025-04-03 06:28 | XMS_ITS | Clinical Summary ---
Author Organization [facility] Address [address] [facility] [address] [place] [address] Phone Care Team Providers Care Director Acute Name Role Phone Gabby Kelly MD Primary Care Provider [phone] Allergies No known active allergies Medications Multiple Vitamins-Material Coordinator als (MULTIVITAMIN ADULT EXTRA C PO) [...] Influenza Vaccine (#1) 2025 [place] [facility] [place] [facility] [address] Care Teams Director Acute Relationship Specialty Start Date End Date Gabby Kelly MD [facility] [place] [address] PCP - General 07/08/20
--- OUTSIDE RECORDS SUMMARY | 2025-04-03 06:28 | XMS_ITS | Patient Health Record ---
Author Organization [facility] Tavon brittany Lyndsey Address [address] [place] [address] Care Team Providers Care Election Supervisor Name Role Phone Robin Pierre Primary Care Provider Unavailabl e Black, Stephanie Unavailable [phone] Reason For Referral No Information Medications Medication [...] Problem Acquired hammer toe of right foot ([id number] ) Other hammer toe(s) (acquired), right foot (M20.41) Active confirmed Problem Acquired hammer toe of left foot (2471384880178461 ) Other hammer toe(s) (acquired), left foot (M20.42) Active confirmed Problem Polyneuropathy due to type 2 diabetes mellitus (713141416) Type 2 diabetes mellitus with diabetic polyneuropathy (E11.42) Active confirmed Plan Of Treatment Pending Test Test Name Order Date X ray : Foot, right 3V 09/16/2017 [id number] NAIL, 1-5 09/05/2018 [id number] NAIL, 1-5 09/16/2017 [id number] NAIL, 1-5 03/18/2017 [id number] Plate 09/05/2018 [id number] SKIN LESIONS, 2 TO 4 09/06/19 19 [id number] NAIL(S) 09/05/2018 [id number] NAIL(S) 03/18/2017 [id number] NAIL(S) 09/16/2017 Medical (General) History Medical History History ICD Code Anxiety Back,Hip,and Knee pain Depression Diabetic Gout High blood pressure Numbness Surgical History Surgery Date(Month/Year) Hospitalization History Reason Date(Month/Year) [facility] 9 DAYS 01/07/17 [facility] [place] [facility] - recurrent cellulitis 07/2018
== END 2025-04-03 06:27 | disposition home or self-care (01) ==
LOC: CF 06:26
PROVIDERS: Visit Provider Anesthesiology
DX: M46.1 Sacroiliitis, not elsewhere classified (principal); M53.3 Sacrococcygeal disorders, not elsewhere classified
CPT/HCPCS: 27096; J2003; J2795; J3301; Q9967

== ENCOUNTER 2025-04-03 14:46 | Outpatient (AMB) | payer OTHER, SELFPAY ==
[2025-04-03 14:47] VITALS: BP 127/71; PULSE 79; RESP 16; O2SAT 95; BMI 35.1
--- NOTE | 2025-04-03 14:47 | A.OFFVIS_ITS ---
Vital Signs 04/03/25 14:47 04/03/25 15:31 Height 6 ft 4 in Weight 288 lb BMI 35.1 BP 127/71 124/65 Blood Pressure Location Lt brachial Lt brachial Position Sitting Sitting Respiration 16 16 Pulse 79 94 Pulse Source Pulse Oximeter Pulse Oximeter Pulse Oximetry (%) 95 96 Oxygen Delivery Method Room Air Room Air Intake Visit Reasons: Bilateral Therapeutic SIJ Injections Allergies No Known Allergies Allergy (Verified 03/05/25 12:51) [facility] Medical History Orthostatic hypotension Peripheral neuropathy Obstructive sleep apnea Restless legs syndrome (RLS) Obstructive sleep apnea Chronic pain syndrome Ureteral calculus Fatty liver Gout Kidney stones Depression, major, recurrent Lipid disorder 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, essential 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 Diabetes 1.5, managed as type 1 Complex regional pain syndrome of both lower extremities Diabetic peripheral neuropathy Spondylosis of lumbar region without myelopathy or radiculopathy Surgical History S/P placement of nerve stimulator Hx of lithotripsy Hx of colonoscopy (~11/10/16) Family History Other Mental health disorder Social History Housing: Condominium Alcohol intake: never Patient Tobacco Use Status: Never used Tobacco e-Cigarette/Vaping Use: Never Used Second Hand Smoke Exposure: No service: No Current occupational status: disabled Cognitive needs: No Hearing needs: No Vision needs: Yes Physical Exam Vital Signs: Last Vital Signs Pulse 94 04/03/25 15:31 Resp 16 04/03/25 15:31 BP 124/65 04/03/25 15:31 Pulse Ox 96 04/03/25 15:31 Oxygen Delivery Method Room Air 04/03/25 15:31 BMI result Body Mass Index 35.1 Assessment & Plan Assessment & Plan (1) Sacroiliitis: Code(s): M46.1 - Sacroiliitis, not elsewhere classified Category: Medical (2) Sacroiliac joint pain: Code(s): M53.3 - Sacrococcygeal disorders, not elsewhere classified Category: Medical Plan Bilateral therapeutic sacroiliac joint injection Informed consent was explained thoroughly to the patient.? All questions about benefits and risks for the procedure were answered. Patient came to the operating room and was positioned prone on the operating table with the pillow under the abdomen. The lower back and buttocks of the patient were prepped with ChloraPrep prepped and draped with sterile utility towels.? Sterilely draped C-arm was brought over the operating field and sq picture of patient's pelvis was demonstrated on the screen.? For the right joint tilting C-arm contralateral to the site of the joint the most posterior portion of the joints was superimposed with anterior silhouette of the joint.? Skin was injected in the projection of the joint slightly medial to the location of the joint with 25 gauge 1/2 inch needle using local lidocaine 2% . After that 22 gauge 3 and 1/2 inch needle was driven to the right joint in tunnel vision fashion.? When needle entered the joint capsule injection of the contrast was performed demonstrating intra-articular and minimally periarticular spread of the contrast.? After that 5 cc. of ropivacaine 0.5% mixed with Kenalog 40 mg was injected in the joint. After that procedure was repeated on the left side in mirroring fashion. Total dose of Kenalog was 80 mg Upon completion of the injections the needle was removed and Band-Aid was applied.? Upon completion of the injection patient was taken outside of the operating room to the recovery room where recovered uneventfully. Orders: Orders FL guidance in treatment room Today M53.3 - Sacrococcygeal disorders, not elsewhere classified Coding Level of Care Code Procedure Only Diagnoses Sacroiliitis M46.1 Sacroiliac joint pain M53.3
[2025-04-03 15:31] VITALS: BP 124/65; PULSE 94; RESP 16; O2SAT 96
--- OUTSIDE RECORDS SUMMARY | 2025-04-03 18:02 | XMS_ITS | Clinical Summary ---
Author Organization [facility] Address [address] [place] [address] Care Team Providers Care Hot Worker Name Role Phone Gabby Kelly Primary [...] 03/30/2024, 05/2023, 03/09/2022, Additional history exists Insurance [facility] Care Teams Hot Worker Relationship Specialty Start Date End Date Robin, Gabby [facility] OR[place]IA Wallace [phone] PCP - General Internal Medicine 08/15/24
--- OUTSIDE RECORDS SUMMARY | 2025-04-03 18:02 | XMS_ITS | Clinical Summary ---
Author Organization [facility] Address [address] [facility] [address] [place] [address] Phone Care Team Providers Care Casino Runner Name Role Phone Gabby Kelly MD Primary Care Provider [phone] Allergies No known active allergies Medications Multiple Vitamins-Experience Specialist als (MULTIVITAMIN ADULT EXTRA C PO) Take [...] Influenza Vaccine (#1) 2025 [place] [facility] [place] [facility] [place] [address] Care Teams Casino Runner Relationship Specialty Start Date End Date Gabby Kelly MD [facility] [place] [address] PCP - General 07/08/20
== END 2025-04-03 15:32 | disposition home or self-care (01) ==
LOC: HO.PMCPRC 14:46
PROVIDERS: PCP Internal Medicine; Visit Provider Anesthesiology
DX: M46.1 Sacroiliitis, not elsewhere classified (principal); M53.3 Sacrococcygeal disorders, not elsewhere classified
CPT/HCPCS: 27096

== ENCOUNTER 2025-04-11 11:26 | Outpatient (REF) | payer OTHER, SELFPAY ==
[2025-04-11 13:15] LABS: Appearance Urine Clear; Glucose Urine UA Negative (Negative); PH 6.0 (5.0-9.0); Specific Gravity - Urine 1.025 (1.005-1.025)
[2025-04-11 13:47] LABS: Anion Gap 13 (12-20); Blood Urea Nitrogen 32 mg/dL (9-16); Calcium 9.6 mg/dL (8.4-10.2); Carbon Dioxide 28 mmol/L (22-29); Chloride 104 mmol/L (96-108); Estimated Glomerular Filt Rate 44; Potassium 4.4 mmol/L (3.3-5.1); Sodium 141 mmol/L (135-145)
[2025-04-11 14:35] LABS: Total Protein Urine Random 13 mg/dL (<12)
== END 2025-04-11 11:27 | disposition home or self-care (01) ==
LOC: HO.HMGCLDS 11:26
PROVIDERS: PCP Internal Medicine; Visit Provider Internal Medicine Hypertension Specialist
DX: I12.9 Hypertensive chronic kidney disease with stage 1 through stage 4 chronic kidney disease, or unspecified chronic kidney disease (principal); N18.30 Chronic kidney disease, stage 3 unspecified
CPT/HCPCS: 36415; 80048; 81003; 82570; 84156

== ENCOUNTER 2025-04-16 10:26 | Outpatient (AMB) | payer OTHER, SELFPAY ==
--- NOTE | 2025-04-16 10:29 | HO.NEPHOV ---
Vital Signs 04/16/25 10:30 Height 6 ft 4 in Weight 278 lb BMI 33.8 BP 120/72 Blood Pressure Location Lt brachial Position Sitting Pulse 80 Pulse Source Pulse Oximeter Pulse Oximetry (%) 98 Oxygen Delivery Method Room Air Intake Visit Reasons: FU- # Disconnected [place] Worker Required: No Accompanied by: Self / Same As Patient Allergies No Known Allergies Allergy (Verified 04/16/25 10:31) Medication List - Last Reconciled 04/16/25 by Abilio Garsia MD allopurinol 300 mg PO DAILY aripiprazole 10 mg PO BEDTIME aspirin (Erick Low Dose Aspirin) 81 mg PO DAILY 90 days atorvastatin 20 mg PO DAILY 90 days baclofen 20 mg PO QID 30 days blood pressure kit-extra large As directed blood sugar diagnostic (Corhythm Ultra Test strips) Test blood sugar once a day bupropion HCl XL 300 mg PO QAM duloxetine 60 mg PO BEDTIME flash glucose scanning reader (XL Marketing Sonido 2 [place]) As directed flash glucose sensor (Solaire Generationyle Sonido 2 Sensor kit) As directed gabapentin 1-3 caps orally bedtime; hydrochlorothiazide 25 mg PO DAILY insulin glargine (Lantus Solostar U-100 Insulin) 20 units subcut QPM pen needle, diabetic (AboutTime Pen Needle) As directed penicillin V potassium 250 mg PO BID 90 days potassium citrate ER 20 mEq (2 x 10 mEq (1,080 mg)) PO BID 90 days tirzepatide (weight loss) 5 mg (0.5 mL) subcut QWEEK 90 days trazodone 100 mg PO BEDTIME HPI Comments Details: Middle aged man with a history of diabetes mellitus obesity and obstructive sleep apnea with history of nephrolithiasis is here for evaluation of renal function He is being followed by Urology. On salt substitute 07/18/24 Overall doing well ;Still has cough with scanty clear sputum 10/31/24 Still has cough. Started on Zepbound - End august Lost about 5 to 6 lbs 02/12/2025 Blood pressure was low. Losartan has been discontinued. He continues to lose weight. Blood pressure has been suboptimal he has had episodes of hypoglycemia. Accompanied by his . 04/16/25 - The patient is a 59-year-old male presenting with follow-up for chronic disease management and hypertension. - 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: Stable on hydrochlorothiazide 25 mg. - Chronic Kidney Disease: Creatinine stable at 1.6 mg/dL, kidney function approximately 45%. - Preventative Care: Follow-up with urology and blood work advised. 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 Diabetes 1.5, managed as type 1 Complex regional pain syndrome of both lower extremities Diabetic peripheral neuropathy Spondylosis of lumbar region without myelopathy or radiculopathy Surgical History S/P placement of nerve stimulator Hx of lithotripsy Hx of colonoscopy (~11/10/16) Family History Other Mental health disorder Social History Housing: Condominium Alcohol intake: never Patient Tobacco Use Status: Never used Tobacco e-Cigarette/Vaping Use: Never Used Second Hand Smoke Exposure: No service: No Current occupational status: disabled Cognitive needs: No Hearing needs: No Vision needs: Yes Physical Exam Vital Signs: Last Vital Signs Pulse 80 04/16/25 10:30 BP 120/72 04/16/25 10:30 Pulse Ox 98 04/16/25 10:30 Oxygen Delivery Method Room Air 04/16/25 10:30 BMI result Body Mass Index 33.8 Const General: comfortable; No acute distress Orientation/consciousness: patient oriented x3 Eyes General: appearance normal, both eyes and all related structures Visual Espinoza: normal visual espinoza by confrontation Neck Neck: Yes supple and Yes no JVD Resp Effort & Inspection: normal respiratory effort and respiratory effort not decreased Cardio Palpation: no palpable S3 and no palpable S4 Heart sounds: no rubs GI Inspection: Yes normal to inspection Palpation (GI): Soft to palpation Percussion: Yes normal to percussion Auscultation: normal bowel sounds General: Yes no CVA tenderness Back/Spine/Pelvis Back: no CVA tenderness Skin General skin exam: no petechiae and no purpura Neuro General: patient oriented x3 and no focal motor deficits Extrem General: No clubbing and No edema Results Reviewed Nephrology Results: Sodium, (135-145) 141 mmol/L 04/11/25 Potassium, (3.3-5.1) 4.4 mmol/L 04/11/25 Chloride, (96-108) 104 mmol/L 04/11/25 Carbon Dioxide, (22-29) 28 mmol/L 04/11/25 BUN, (9-16) 32 mg/dL H 04/11/25 Creatinine, (0.5-1.4) 1.62 mg/dL H 04/11/25 Calcium, (8.4-10.2) 9.6 mg/dL 04/11/25 Urine Protein, (Neg-Trace) Negative mg/dL 04/11/25 Urine Creatinine 254.66 mg/dL 04/11/25 Renal US 03/14/24 Assessment & Plan Assessment & Plan (1) 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, essential: Code(s): I10 - Essential (primary) hypertension Category: Medical (2) Chronic kidney disease: Code(s): N18.9 - Chronic kidney disease, unspecified Category: Medical Qualifiers: Chronic kidney disease stage: stage 3 (moderate) Chronic kidney disease stage 3 subtype: unspecified whether 3a or 3b Qualified Code(s): N18.30 - Chronic kidney disease, stage 3 unspecified Plan Middle aged man with hypertension CKD and nephrolithiasis. history of nephrolithiasis Hypocitraturia ON potassium citrate and Aldactazide. encouraged him to stay on low-sodium diet He should avoid salt substitute. We will monitor serum potassium closely. CKD 3 in a setting of DM obesity and nephrolithiasis Cr at 1.6 Encouraged him to use CPAP regularly. He continue to avoid nephrotoxic agents including NSAIDs. Maintain hemoglobin A1c less than 7%. 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. Blood pressure is well controlled after stopping amlodipine, losartan. and Aldactazide. Keep HCTZ 25 mg a day. With weight loss, BP is expected to decrease further Encouraged to watch BP at home and call if SBP < 100 or if he is light headed- would discontinue hydrochlorothiazide Orders: Orders Basic Metabolic Panel 6 Months N18.30 - Chronic kidney disease, stage 3 unspecified Complete Blood Count Auto Diff 6 Months N18.30 - Chronic kidney disease, stage 3 unspecified Coding Level of Care Code Est Pt Level 4 (41214) Diagnoses 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, essential I10 Stage 3 chronic kidney disease, unspecified whether stage 3a or 3b CKD N18.30 Chronic kidney disease stage: stage 3 (moderate) Chronic kidney disease stage 3 subtype: unspecified whether 3a or 3b
[2025-04-16 10:30] VITALS: BP 120/72; PULSE 80; O2SAT 98; BMI 33.8
== END 2025-04-16 10:43 | disposition home or self-care (01) ==
LOC: HO.HKA 10:27
PROVIDERS: PCP Internal Medicine; Visit Provider Internal Medicine Hypertension Specialist
DX: I10 Essential (primary) hypertension (principal); N18.30 Chronic kidney disease, stage 3 unspecified
CPT/HCPCS: 99214

== ENCOUNTER 2025-04-26 11:27 | Outpatient (REF) | payer OTHER, SELFPAY ==
--- NOTE | ~2025-04-26 | US_ITS ---
EXAMINATION: US RETROPERITONEAL LIMITED (RENAL ONLY) CLINICAL INFORMATION: N20.0 - Calculus of kidney. COMPARISON: Ultrasound on March 14, 2024 TECHNIQUE: Real-time imaging of the kidneys. FINDINGS: RIGHT KIDNEY: Sagittal length of 11.3 cm. Minimally increased cortical echogenicity, with preserved thickness. No shadowing renal stones demonstrated. Cystic lesion in the midpole measures 1.0 cm. No hydronephrosis. LEFT KIDNEY: Sagittal length of 12.5 cm. Minimal increased cortical echogenicity, with preserved thickness. No shadowing renal stones demonstrated. No hydronephrosis. US/US renal BI IMPRESSION: No shadowing renal stones demonstrated on either kidney. Electronically signed by: Estephania Moctezuma MD 04/26/2025 12:04 PM EDT
--- OUTSIDE RECORDS SUMMARY | 2025-04-26 14:25 | XMS_ITS | Patient Health Record ---
Author Organization [facility] Tavon brittany Lyndsey Address [address] [facility] [place] [address] Care Team Providers Care Rug Frame Mounter Name Role Phone Robin Pierre Primary Care Provider Unavailabl e Black, Stephanie Unavailable [phone] Reason For Referral No Information Medications Medication [...] Problem Acquired hammer toe of right foot ([id number] ) Other hammer toe(s) (acquired), right foot (M20.41) Active confirmed Problem Acquired hammer toe of left foot ([id number] ) Other hammer toe(s) (acquired), left foot (M20.42) Active confirmed Problem Polyneuropathy due to type 2 diabetes mellitus (758092399) Type 2 diabetes mellitus with diabetic polyneuropathy (E11.42) Active confirmed Plan Of Treatment Pending Test Test Name Order Date X ray : Foot, right 3V 09/16/2017 [id number] NAIL, 1-5 09/05/2018 [id number] NAIL, 1-5 03/18/2017 [id number] NAIL, 1-5 09/16/2017 [id number] Plate 09/05/2018 [id number] SKIN LESIONS, 2 TO 4 09/06/19 19 [id number] NAIL(S) 09/05/2018 [id number] NAIL(S) 09/16/2017 [id number] NAIL(S) 03/18/2017 Medical (General) History Medical History History ICD Code Anxiety Back,Hip,and Knee pain Depression Diabetic Gout High blood pressure Numbness Surgical History Surgery Date(Month/Year) Hospitalization History Reason Date(Month/Year) [facility] 01[facility]17 [facility] - recurrent cellulitis 07/2018
--- OUTSIDE RECORDS SUMMARY | 2025-04-26 14:25 | XMS_ITS | Clinical Summary ---
Author Organization [facility] Address [address] [place] [address] Care Team Providers Care Winding Department Supervisor Name Role Phone Gabby Kelly Primary Care Provider [phone] Allergies No known active allergies Medications amLODIPine [...] Drivers of Health Татьяна ual Screening 06/28/2024 COVID-19 Vaccine (8 - 2024-2 6 season) 2025 03/30/2024, 04/08/2023, 03/09/2022, Additional history exists Influenza Vaccine (#1) 2025 , 04/08/2023, 02/26/2023, Additional history exists DTaP,Tdap,and Td Vaccines (3 - Td or Tdap) 01/31/2030 02/01/2020, 09/09/2018 RSV Vaccine (60+ years old a nd patients) (1 - 1-dose 75+ series) 2040 Insurance [facility] Care Teams Winding Department Supervisor Relationship Specialty Start Date End Date Gabby Kelly [facility] [place] [address] PCP - General Internal Medicine 08/15/24
== END 2025-04-26 11:28 | disposition home or self-care (01) ==
LOC: HO.HMGCX 11:27
PROVIDERS: PCP Internal Medicine; Visit Provider Urology
DX: N20.0 Calculus of kidney (principal)
CPT/HCPCS: 76775

== ENCOUNTER → 2025-04-26 11:29 | Outpatient (BNV) | payer OTHER, SELFPAY | PROVIDERS: PCP Internal Medicine; Visit Provider Radiology Body Imaging | DX: N20.0 Calculus of kidney (principal) | CPT/HCPCS: 76775 ==

== ENCOUNTER 2025-05-02 14:13 | Outpatient (AMB) | payer OTHER, SELFPAY ==
[2025-05-02 14:18] VITALS: BP 133/80; PULSE 89; RESP 16; O2SAT 98; BMI 31.6
--- NOTE | 2025-05-02 14:18 | MHC.OFFVIS ---
Vital Signs 05/02/25 14:18 Height 6 ft 4 in Weight 260 lb BMI 31.6 BP 133/80 Blood Pressure Location Lt brachial Position Sitting Respiration 16 Pulse 89 Pulse Source Pulse Oximeter Pulse Oximetry (%) 98 Oxygen Delivery Method Room Air Intake Visit Reasons: S/P Bilateral Therapeutic SIJ Injections Director Of Admissions Required: No Accompanied by: Spouse Allergies No Known Allergies Allergy (Verified 05/02/25 14:19) Medication List - Last Reconciled 05/02/25 by Marcia Greenberg LPN allopurinol 300 mg PO DAILY aripiprazole 10 mg PO BEDTIME aspirin (Erick Low Dose Aspirin) 81 mg PO DAILY 90 days atorvastatin 20 mg PO DAILY 90 days baclofen 20 mg PO QID 30 days blood pressure kit-extra large As directed blood sugar diagnostic ([employer] Ultra Test strips) Test blood sugar once a day bupropion HCl XL 300 mg PO QAM duloxetine 60 mg PO BEDTIME flash glucose scanning reader ([employer] Sonido 2 Pelham) As directed flash glucose sensor ([employer] Sonido 2 Sensor kit) As directed gabapentin 1-3 caps orally bedtime; hydrochlorothiazide 25 mg PO DAILY insulin glargine (Lantus Solostar U-100 Insulin) 20 units (0.2 mL) subcut QPM 90 days pen needle, diabetic (AboutTime Pen Needle) As directed penicillin V potassium 250 mg PO BID 90 days potassium citrate ER 20 mEq (2 x 10 mEq (1,080 mg)) PO BID 90 days tirzepatide (weight loss) 5 mg (0.5 mL) subcut QWEEK 90 days trazodone 100 mg PO BEDTIME HPI Comments Details: Adama is back in my office after therapeutic sacroiliac joint injection which was performed on 04/03/2025. Patient reports excellent pain relief for the past 1 month. He reports intermittent pain exacerbation to 3/10 but mainly his pain is very low 1 to 2/10. He reports better mobility better activities of daily living better social interactions. We decided today to continue with observation. If the results of the injection will last more than 3 to 4 month the repeat of the sacroiliac joint injection in my opinion can not be done for the patient. However if the results of the injection will last less than 3 months I would consider the patient a candidate for bilateral sacroiliac joint fusion. We also discussed patient's mid back pain in the thoracic spine. Unfortunately this is something we could not fix with medial branch block injection. I recommended patient [id number] lidocaine patch application to the painful area with the avoidance of the midline spine, I recommended physical therapy including gymnastic bar vertical hanging. Prior: diagnostic bilateral sacroiliac joint injection on 02/27/2025. He reports at least 75% pain improvement, he reports excellent mobility, excellent activities of daily living, better social interactions. For the 1st 5 hours after the procedure his pain was ranging from 1/10 to 2/10 while before the procedure his pain was 7/10. He still reports pain 3/10 2 days after the procedure. I offered him therapeutic sacroiliac joint injections without sedation. Patient agreed to go for the procedure. I also prescribed him today sacroiliac joint belt. I demonstrated the patient how to were sacroiliac joint belt. His was in the presence, I explained to them that he has to were sacroiliac joint belt except the times when he goes to the bathroom or taking shower. He is concerned for upper back pain however he points out today at the location on the almost lateral position of the 10's rib on the right. It sounds like myofascial pain syndrome. I recommended him to continue physical therapy home exercise program. I offered him to do physical therapy however the patient did not want to go for PT now. Prior: diagnostic medial branch block L3-L4 L5 bilateral. Unfortunately if pain relief was felt by the patient it was very minimal. Before the procedure he reported his pain 3/10. After the procedure his pain was 2/10 to 3/10. It went to 6/10 at the 6 hour after the procedure. And although the patient reported that he performed most painful maneuvers which usually aggravate his pain I can not consider this much of the pain relief as the indication on pain generators. I decided to schedule him for diagnostic sacroiliac joint injection bilateral. He requests me to perform this procedure late at night because it this is when his pain is most severe. The latest I can schedule him is 330 in the afternoon. The patient agreed to go for the procedure. He also reported that he tried to take his baclofen increasing the dose 3 fold. He reports some improvement on this dose. I will prescribe him 20 mg baclofen 4 times a day so he can not get some alleviation of his pain. Prior:. He reports shooting pain with attempt to flex forward and he reports pain aggravation with flexing backwards. he reports most aggravating pain with standing but not with walking. He went for MRI and results of the MRI dictated as below. I would like to perform bilateral medial branch block on this patient. If this injection will not result in good pain relief I will consider repeating diagnostic bilateral sacroiliac joint injection which in the past gave patient 3 weeks of pain relief. Only after those injections will be failing the relief of the pain of the patient is I will consider transforaminal epidural steroid injection for this patient. Prior: Results of the trial of SCS Nevro: He reports excellent pain relief specially in bilateral lower extremities. He reports that he is able to sleep very well with device on he reports minor pain in the feet but it does not prevent him to take good sleep. He also reports the device helps for the lower back pain improved his mobility activities of daily living and improve his social interactions. He is very much interested in implantation of the device on permanent basis. He is suffering from spondylosis of the lumbar spine disc degeneration lumbar spine but his main problem is diabetic polyneuropathy of bilateral lower extremities. SI joint injection results 3 weeks of pain relieve on diagnostic injection 100%.? The pain under right scapula is another problem for this patient.? I told him that this pain can be treated potentially as a myofascial pain syndrome and I can perform once he is here in my office a trigger point injection into this area hopefully it will give him good pain relief.? ?He is under care of urologist and urologist thinks that this pain might be related to his kidney stones.? However the larger stone he has? is on the left side and that he experiences pain only on the right.? He is going for shockwave lithotripsy with this urologist in the future to destroyed the stones.? As of his polyneuropathy it stems out from diabetes.? His hemoglobin A1c is equal to 8. it is certain improvement from number in around 10. however unfortunately it is not good enough to reduce polyneuropathy.? He reports significant bilateral pain as burning sensations pins and needles in bilateral feet in the is distribution of the low socks.? We discussed the situation with peripheral neuropathy.? Explained to him that unless he would decrease his hemoglobin A1c below 6 I would not expect his pain getting better. ?He is suffering from axial lower back pain and peripheral diabetic polyneuropathy.? ? He was complaining on the pain in the lateral hip area, he was sent for hip x-ray which demonstrated almost no pathology normal alignment no cartilage loss. He went for consult with Dr. Rodrigez a neurosurgeon.? There were no indications to do any surgical interventions by Dr. Rodrigez. 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 myelopathy or radiculopathy Surgical History S/P placement of nerve stimulator Hx of lithotripsy Hx of colonoscopy (~11/10/16) Family History Other Mental health disorder Social History Housing: Condominium Alcohol intake: never Patient Tobacco Use Status: Never used Tobacco e-Cigarette/Vaping Use: Never Used Second Hand Smoke Exposure: No service: No Current occupational status: disabled Cognitive needs: No Hearing needs: No Vision needs: Yes Review of Systems Const All systems reviewed & are unremarkable except as noted in HPI and below Physical Exam Vital Signs: Last Vital Signs Pulse 89 05/02/25 14:18 Resp 16 05/02/25 14:18 BP 133/80 05/02/25 14:18 Pulse Ox 98 05/02/25 14:18 Oxygen Delivery Method Room Air 05/02/25 14:18 BMI result Body Mass Index 31.6 Const General: cooperative and no acute distress Nutritional Appearance: obese Limitations: no limitations HEENT Head: Yes normocephalic Ears: hearing grossly normal bilaterally Neck Neck: Yes full ROM and Yes supple Resp Effort & Inspection: normal respiratory effort and able to speak in complete sentences Back/Spine/Pelvis Other: Darryl test is positive bilaterally. Pelvic compression test is positive bilaterally. Pelvic distraction test is positive bilaterally. Stinchfield test is positive bilaterally. 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 myelopathy or radiculopathy: Code(s): M47.816 - Spondylosis without myelopathy or radiculopathy, lumbar region Category: Medical (4) Diabetic peripheral neuropathy: Code(s): E11.42 - Type 2 diabetes mellitus with diabetic polyneuropathy Category: Medical (5) Complex regional pain syndrome of both lower extremities: Code(s): G90.523 - Complex regional pain syndrome I of lower limb, bilateral Category: Medical Qualifiers: Complex regional pain syndrome type: type I Qualified Code(s): G90.523 - Complex regional pain syndrome I of lower limb, bilateral (6) Sacroiliac joint pain: Code(s): M53.3 - Sacrococcygeal disorders, not elsewhere classified Category: Medical (7) Sacroiliitis: Code(s): M46.1 - Sacroiliitis, not elsewhere classified Category: Medical (8) 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 The patient in the past also had diagnostic sacroiliac joint injection which resulted in 3 weeks of pain relief. Unfortunately diagnostic medial branch block L3-L4 does ramus L5 resulted in minimal improvement. I repeated diagnostic sacroiliac joint injection and patient had very good pain relief. One month of the pain relief after therapeutic sacroiliac joint injection. See discussion as above. We agreed that the patient will give me a call when his level of low back pain will be 7 to 8/10.. The recommendations about the midthoracic spine pain see as above. Coding Level of Care Code Est Pt Level 3 (16451) Diagnoses Spinal cord stimulator status Z96.89 Hip osteoarthritis M16.9 Spondylosis of lumbar region without myelopathy or radiculopathy M47.816 Diabetic peripheral neuropathy E11.42 Complex regional pain syndrome type 1 of both lower extremities G90.523 Complex regional pain syndrome type: type I Sacroiliac joint pain M53.3 Sacroiliitis M46.1 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
--- OUTSIDE RECORDS SUMMARY | 2025-05-02 17:24 | XMS_ITS | Patient Health Record ---
Author Organization [facility] Tavon brittany Lyndsey Address [address] [facility] [place] [address] Care Team Providers Care Informatics Nurse Specialist Name Role Phone Robin Pierre Primary Care Provider Unavailabl e Black, Stephanie Unavailable [phone] Reason For Referral No Information Medications Medication [...] Problem Acquired hammer toe of right foot ([id number] ) Other hammer toe(s) (acquired), right foot (M20.41) Active confirmed Problem Acquired hammer toe of left foot ([id number] ) Other hammer toe(s) (acquired), left foot (M20.42) Active confirmed Problem Polyneuropathy due to type 2 diabetes mellitus (173152385) Type 2 diabetes mellitus with diabetic polyneuropathy (E11.42) Active confirmed Plan Of Treatment Pending Test Test Name Order Date X ray : Foot, right 3V 09/16/2017 [id number] NAIL, 1-5 09/05/2018 [id number] NAIL, 1-5 03/18/2017 [id number] NAIL, 1-5 09/16/2017 [id number] Plate 09/05/2018 [id number] SKIN LESIONS, 2 TO 4 09/06/19 19 [id number] NAIL(S) 09/05/2018 [id number] NAIL(S) 09/16/2017 [id number] NAIL(S) 03/18/2017 Medical (General) History Medical History History ICD Code Anxiety Back,Hip,and Knee pain Depression Diabetic Gout High blood pressure Numbness Surgical History Surgery Date(Month/Year) Hospitalization History Reason Date(Month/Year) [facility] 01/07/17 [facility] [place] [facility] - recurrent cellulitis 07/2018
--- OUTSIDE RECORDS SUMMARY | 2025-05-02 17:24 | XMS_ITS | Clinical Summary ---
Author Organization [facility] Address [address] [place] [address] Care Team Providers Care Detention Deputy Name Role Phone Gabby Kelly Primary Care Provider [phone] Allergies No known active allergies Medications amLODIPine [...] ual Screening 06/28/2024 COVID-19 Vaccine (8 - 5-2 6 season) 2025 03/30/2024, 04/08/2023, 03/09/2022, Additional history exists Influenza Vaccine (#1) 2025 , 04/08/2023, 02/26/2023, Additional history exists DTaP,Tdap,and Td Vaccines (3 - Td or Tdap) 01/31/2030 02/01/2020, 09/09/2018 Insurance [facility] Care Teams Detention Deputy Relationship Specialty Start Date End Date Gabby Kelly [facility] ORALIA Wallace [id number] PCP - General Internal Medicine 08/15/24
== END 2025-05-02 14:41 | disposition home or self-care (01) ==
PROVIDERS: PCP Internal Medicine; Visit Provider Anesthesiology
DX: E11.42 Type 2 diabetes mellitus with diabetic polyneuropathy (principal); M47.815 Spondylosis without myelopathy or radiculopathy, thoracolumbar region; M47.816 Spondylosis without myelopathy or radiculopathy, lumbar region; M53.3 Sacrococcygeal disorders, not elsewhere classified; Z96.89 Presence of other specified functional implants; M16.9 Osteoarthritis of hip, unspecified; G90.523 Complex regional pain syndrome I of lower limb, bilateral; M46.1 Sacroiliitis, not elsewhere classified; M51.369 Other intervertebral disc degeneration, lumbar region without mention of lumbar back pain or lower extremity pain
CPT/HCPCS: 99213

== ENCOUNTER 2025-05-04 11:11 | Outpatient (AMB) | payer OTHER, SELFPAY ==
--- NOTE | 2025-05-04 11:14 | MHC.OFFVIS ---
Intake Visit Reasons: 1Y US Intake Note: Patient is Present for Follow Up Urology Medication: Potassium Antibiotic Allergies:None Blood Thinners: Aspirin Patient reports that his urine stream has slowed down alot Residential Collections Required: No Accompanied by: Self / Same As Patient Allergies No Known Allergies Allergy (Verified 05/04/25 11:15) HPI Comments Details: Adama is a pleasant male. He is seen for the following urologic conditions - nephrolithiasis - hypocitrauria - erectile dysfunction - lower urinary tract symptoms Clear ultrasound Nephrolithiasis normal ultrasound Continued good response to potassium citrate and allopurinol Background diabetes, obstructive sleep apnea, dyslipidemia, depression, hypertension Does report some weakness of stream and feelings of incomplete emptying Trial tamsulosin Erectile dysfunction Follow-up Trial daily tadalafil 10 mg with 20 mg on demand Nephrolithiasis Recurrent stone former Intervention - 05/18 right ESWL Indications - potassium citrate 20 mEq b.i.d. Urinalysis - 05/18 24 hour urine shows good volume with high sodium, low citrate - 12/17 good volume, improved sodium, improved citrate, improved pH, does have increased oxalate Imaging - 03/18 CT scan left distal ureter 3 mm stone, 6 mm stone on right side - 04/17 renal ultrasound right side 6 mm stone - 06/17 renal ultrasound no evidence of stone, hematoma on right side post ESWL - 12/17 renal ultrasound no stones - 12/18 renal ultrasound no stones - 12/19 renal ultrasound no evidence of stone - 04/21 ultrasound no evidence of stones Therapeutic plan - 12 months with imaging [facility] Medical History Orthostatic hypotension Peripheral neuropathy Obstructive sleep apnea Restless legs syndrome (RLS) Obstructive sleep apnea Chronic pain syndrome Ureteral calculus Fatty liver Gout Kidney stones Depression, major, recurrent Lipid disorder 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, essential alf (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 Diabetes 1.5, managed as type 1 Complex regional pain syndrome of both lower extremities Diabetic peripheral neuropathy Spondylosis of lumbar region without myelopathy or radiculopathy Surgical History S/P placement of nerve stimulator Hx of lithotripsy Hx of colonoscopy (~11/10/16) Family History Other Mental health disorder Social History Housing: Condominium Alcohol intake: never Patient Tobacco Use Status: Never used Tobacco e-Cigarette/Vaping Use: Never Used Second Hand Smoke Exposure: No service: No Current occupational status: disabled Cognitive needs: No Hearing needs: No Vision needs: Yes Review of Systems Const Denies chills and Denies fever(s) Card Reports no additional complaints and Denies syncope Resp Denies cough GI Denies abdominal pain and Denies heartburn Reports as per HPI and Denies change in libido Neuro Denies syncope Psych Denies change in libido Endo Denies change in libido Physical Exam Const General: cooperative, healthy appearing, comfortable and no acute distress Orientation/consciousness: patient oriented x3 HEENT Face and sinus: Yes normal facial exam Mouth: moist mucous membranes Neck Neck: Yes normal visual inspection, Yes full ROM and Yes trachea midline Chest Chest palpation & inspection: normal inspection of the chest Resp Effort & Inspection: normal respiratory effort, able to speak in complete sentences and no respiratory distress GI Inspection: Yes normal to inspection Back/Spine/Pelvis Cervical Spine: normal cervical lordosis Thoracic/Lumbar Spine: thoracic and lumbar spine normal to inspection Skin General skin exam: no rashes or lesions noted Neuro General: patient oriented x3, gait normal, tone normal and moves all extremities Extrem General: Yes normal to inspection and Yes capillary refill normal Assessment & Plan Assessment & Plan (1) Bladder outlet obstruction: Code(s): N32.0 - Bladder-neck obstruction Category: Medical Plan Trial tamsulosin Repeat testosterone labs Orders: Orders Testosterone, Total 2 Months R82.991 - Hypocitraturia PSA,Total (Free>4and<10) 2 Months R82.991 - Hypocitraturia Medications: New tamsulosin (Flomax) 0.4 mg PO BEDTIME 30 tabs 1RF 30 days R82.991 - Hypocitraturia Refilled potassium citrate ER 20 mEq (2 x 10 mEq (1,080 mg)) PO BID 360 tabs 3RF 90 days N20.0 - Calculus of kidney Patient Instructions: This note is constructed using voice recognition software. While every effort has been made to ensure accuracy precision machining instructor errors may have been included. Imaging studies, laboratory and physical exam results were discussed and reviewed in detail. No major barriers to patient understanding were identified. An opportunity to ask questions regarding the treatment plan was provided. All questions were answered. The patient expressed understanding and agreement with the above treatment plan. The patient is aware they should contact our office by phone for worsening of their current condition or the appearance of new urologic symptoms. Compliance is encouraged with any medications and followup testing that is ordered. It is a privilege to participate in the urologic care of your patient. If you have any questions or concerns regarding treatment for the above conditions, or other urologic issues, please do not hesitate to contact me. The office telephone contact is [phone]. Sincerely, Dr Sylvester Thompson MD, [facility] - Urology Compassionate Specialist Care for the Genitourinary System Coding Level of Care Code Est Pt Level 4 (17695) Diagnoses Bladder outlet obstruction N32.0
--- OUTSIDE RECORDS SUMMARY | 2025-05-04 13:29 | XMS_ITS | Patient Health Record ---
Author Organization [facility] Tavon brittany Lyndsey Address [address] [facility] [place] [address] Care Team Providers Care As400 Analyst Name Role Phone Robin Pierre Primary Care Provider Unavailabl e Black, Stephanie Unavailable [phone] Reason For Referral No Information Medications Medication [...] Problem Acquired hammer toe of right foot ([id number] ) Other hammer toe(s) (acquired), right foot (M20.41) Active confirmed Problem Acquired hammer toe of left foot ([id number] ) Other hammer toe(s) (acquired), left foot (M20.42) Active confirmed Problem Polyneuropathy due to type 2 diabetes mellitus (496503944) Type 2 diabetes mellitus with diabetic polyneuropathy (E11.42) Active confirmed Plan Of Treatment Pending Test Test Name Order Date X ray : Foot, right 3V 09/16/2017 [id number] NAIL, 1-5 09/05/2018 [id number] NAIL, 1-5 03/18/2017 [id number] NAIL, 1-5 09/16/2017 [id number] Plate 09/05/2018 [id number] SKIN LESIONS, 2 TO 4 09/06/19 19 [id number] NAIL(S) 09/05/2018 [id number] NAIL(S) 09/16/2017 [id number] NAIL(S) 03/18/2017 Medical (General) History Medical History History ICD Code Anxiety Back,Hip,and Knee pain Depression Diabetic Gout High blood pressure Numbness Surgical History Surgery Date(Month/Year) Hospitalization History Reason Date(Month/Year) [facility]17 [facility] [place] [facility] - recurrent cellulitis 07/2018
--- OUTSIDE RECORDS SUMMARY | 2025-05-04 13:29 | XMS_ITS | Clinical Summary ---
Author Organization [facility] Address [address] [place] [address] Care Team Providers Care Business Unit Director Name Role Phone Gabby Kelly Primary Care Provider [phone] Allergies No known active allergies Medications amLODIPine [...] Td or Tdap) 01/31/2030 02/01/2020, 09/09/2018 Insurance [facility] Care Teams Business Unit Director Relationship Specialty Start Date End Date Gabby Kelly [facility] ORALIA Wallace [phone] PCP - General Internal Medicine 08/15/24
== END 2025-05-04 12:07 | disposition home or self-care (01) ==
LOC: HO.HUSH 11:12
PROVIDERS: PCP Internal Medicine; Visit Provider Urology
DX: N32.0 Bladder-neck obstruction (principal)
CPT/HCPCS: 99214

== ENCOUNTER 2025-05-18 14:07 | Outpatient (AMB) | payer OTHER, SELFPAY ==
[2025-05-18 14:11] VITALS: BP 130/80; PULSE 82; O2SAT 98; BMI 34.6
--- NOTE | 2025-05-18 14:11 | A.OFFPC_ITS ---
Vital Signs 05/18/25 14:11 Height 6 ft 4 in Weight 284 lb BMI 34.6 BP 130/80 Blood Pressure Location Lt brachial Position Sitting Pulse 82 Pulse Source Pulse Oximeter Pulse Oximetry (%) 98 Intake Visit Reasons: Annual PE - see comments Allergies No Known Allergies Allergy (Verified 05/18/25 14:14) Medication List - Last Reconciled 05/18/25 by Gabby Kelly MD allopurinol 300 mg PO DAILY aripiprazole 10 mg PO BEDTIME aspirin (Erick Low Dose Aspirin) 81 mg PO DAILY 90 days atorvastatin 20 mg PO DAILY 90 days baclofen 20 mg PO QID 30 days blood pressure kit-extra large As directed blood sugar diagnostic ([employer] Ultra Test strips) Test blood sugar once a day blood-glucose sensor (Buy With Fetchyle Sonido 3 Plus Sensor device) As directed bupropion HCl XL 300 mg PO QAM duloxetine 60 mg PO BEDTIME flash glucose scanning reader (Iencuentra Sonido 2 [place]) As directed flash glucose sensor (CutefundStyle Sonido 2 Sensor kit) As directed [CutefundStyle Sonido 3 Plus [place] subcut] gabapentin 1-3 caps orally bedtime; hydrochlorothiazide 25 mg PO DAILY insulin glargine (Lantus Solostar U-100 Insulin) 25 units (0.25 mL) subcut QPM pen needle, diabetic (AboutTime Pen Needle) As directed penicillin V potassium 250 mg PO BID 90 days potassium citrate ER 20 mEq (2 x 10 mEq (1,080 mg)) PO BID 90 days tamsulosin (Flomax) 0.4 mg PO BEDTIME 30 days tirzepatide (weight loss) 5 mg (0.5 mL) subcut QWEEK 90 days trazodone 100 mg PO BEDTIME Tobacco use date assessed: 09/15/24 Dental Screening Dental Screen Date: 09/15/24 HPI HPI Comments History of Present Illness Details History of Present Illness The patient is a 59 year old individual presenting for an annual physical exam. Type 2 Diabetes Mellitus: - The patient's blood sugars have been r unning in the 150s, and the recent A1c was 6.7. - The patient is currently taking 25 uni ts of insulin glargine daily along with Zepbound 5 mg weekly. Benign Prostatic Hyperplasia: - The patient has started taking tamsulo sin (Flomax) for an enlarged prostate as prescribed by a urologist. Benign Essential Tremor: - The patient reports a tremor that is a ffecting their handwriting. - The tremor occurs at rest but is more pronounced when using the hands, such as with a fork. History of Cellulitis: - The patient has a history of celluliti s in the legs and has been on penicillin for approximately three years for prophylaxis, prescribed by an infectious disease doctor. Gait abnormality: - The patient experiences stumbling and lateral movements. - During a balance check, the patient fe lt like they were going back on their heels and had difficulty standing without holding onto something. Obesity: - The patient is slowly losing weight an d is taking Zepbound injections. - The patient's baseline weight fluctuat es between 278-288 pounds. Lower back pain: - The patient received steroid injection s in the lower back, which provided temporary relief. Hyperlipidemia: - The patient takes atorvastatin for lip id control. Gout: - The patient has a history of gout varsha bhumi with allopurinol and has been doing well without recent attacks. Depression: - The patient receives psychiatric care from a nurse practitioner and takes Wellbutrin, duloxetine, Abilify, and Trazodone for sleep. Medical History: - Type 2 Diabetes Mellitus - 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, patient has stopped amlo dipine. - Obesity - Benign Prostatic Hyperplasia - History of cellulitis of the legs - Benign tremor - Lower back pain, treated with steroid injections. - Depression - Hyperlipidemia - Gout Social History: - Functional Status: The patient is able to get out but reports poor flexibility, decreased range of motion, and difficulty straightening the legs. - Weight Management: The patient is slow ly losing weight and takes Zepbound injections. - Baseline weight is around 278-288 poun ds. Health Maintenance - Colonoscopy: The patient's last colono scopy was approximately 9 years ago and was clear, with a recommendation for a 10-year follow-up. - Immunizations: The patient has receive d the flu vaccine. - The status of the pneumonia vaccine is uncertain, and the patient will [facility] with [facility]. - Lab Monitoring: Fasting labs including a CBC and cholesterol panel have been ordered. [place] of Care - The patient sees a kidney doctor, a ur ologist (Dr. Stack), an infectious disease specialist (Dr. Hall), and a neurologist (Dr. Joyce Root). - The patient also sees a nurse practiti ana m for psychiatric medications, has seen Dr. Green for back injections, and a turn down man (Dr. Crandall). Medications - Hydrochlorothiazide for blood pressure - Tamsulosin for enlarged prostate - Insulin glargine 25 units daily for di abetes - Zepbound 5 mg weekly for diabetes and weight loss - Atorvastatin for lipid control - Allopurinol for gout - Wellbutrin for depression - Duloxetine for depression - Abilify - Trazodone for sleep - Discontinued: The patient has stopped taking amlodipine. [facility] Medical History Orthostatic hypotension Peripheral neuropathy Obstructive sleep apnea Restless legs syndrome (RLS) Obstructive sleep apnea Chronic pain syndrome Ureteral calculus Fatty liver Gout Kidney stones Depression, major, recurrent Lipid disorder 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, essential skilled nursing (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 Diabetes 1.5, managed as type 1 Complex regional pain syndrome of both lower extremities Diabetic peripheral neuropathy Spondylosis of lumbar region without myelopathy or radiculopathy Surgical History S/P placement of nerve stimulator Hx of lithotripsy Hx of colonoscopy (~11/10/16) Family History Other Mental health disorder Social History Housing: Condominium Alcohol intake: never Patient Tobacco Use Status: Never used Tobacco e-Cigarette/Vaping Use: Never Used Second Hand Smoke Exposure: No service: No Current occupational status: disabled Cognitive needs: No Hearing needs: No Vision needs: Yes Questionnaire Thrive Questionnaire Date Thrive assessed: 09/15/24 I am a: Patient What is your living situation today?: I have a steady place to live Within the past 12 months, did the food you bought not last and you didn't have the money to get more?: Never true Within the past 12 months, did you worry whether your food would run out before you got money to buy more?: Never true Do you have trouble paying for medicines?: No Do you have trouble getting transportation to medical appointments?: No Do you have trouble paying your heating and electricity bill?: No Do you have trouble taking care of your child, family member or friend?: I choose not to answer this question Do you have trouble with day-to-day activities such as bathing, preparing meals, shopping, managing finances, etc.?: No Are you currently unemployed and looking for a job?: No Are you interested in more education?: No Please select the resources that you would like help with: None Currently or been in a relationship where the following occur: No concerns reported THRIVE Score: 0 CRISTOBAL-7 AMB Questionnaire CRISTOBAL-7 Date CRISTOBAL - 7 assessed: 09/15/24 Source: Developed by Drs. Ken Padilla, Vandana Magallon, Janusz Barlow and colleagues, with an educational nick from [employer]. Review of Systems Narrative Review of Systems - General: No fever no chills - Neurological: No headaches - Ear nose throat: No sore throat no hearing difficulty no ear pain - Cardiovascular: No syncope, no chest pain, no palpitations - Gastrointestinal: No nausea vomiting or diarrhea - Endocrine: No polydipsia no heat intolerance - Genitourinary: No dysuria - Skin: No new complaints Physical exam (Primary Care) Vital Signs: Last Vital Signs Pulse 82 05/18/25 14:11 BP 130/80 05/18/25 14:11 Pulse Ox 98 05/18/25 14:11 BMI result Body Mass Index 34.6 Tobacco/Smoking Status: Tobacco use Status Tobacco use date assessed 09/15/24 05/18/25 14:15 Patient Tobacco Use Status Never used Tobacco 05/18/25 14:15 e-Cigarette/Vaping Use Never Used 05/18/25 14:15 Thrive Assessment: Date of Thrive Assessment Date Thrive assessed 09/15/24 05/18/25 14:15 Currently or been in a relationship where the following occur: No concerns reported Narrative Diagnostic results - Labs: Recent A1c is 6.7. - Vitals: Blood pressure is 130/80 mmHg. Physical Exam General: Cooperative, healthy appearing, comfortable, no acute distress Orientation: Patient oriented x3 Head: Normal to inspection Ears: Within normal limit visually Nose: Normal external nose present Face and sinus: Normal facial exam Eyes: Appearance normal, extraocular movement intact pupils reactive Neck: Normal visual inspection and supple Respiratory: Normal respiratory effort and able to speak in complete sentences. Clear to auscultation, no stridor Cardiovascular: S1 and S2 RRR GI: Normal to inspection. Soft to palpation and nontender Skin: Turgor normal, no acute findings Neuro: Patient oriented x3, motor intact, balance off, tremors both hands present intentional, more pronounced when using hands. Extremities: Normal to inspection, no swelling. . Results AMB Hemoglobin A1c AMB Hemoglobin A1c 6.7 % Last Edit by Lokesh Stinson CMA on 05/18/25 14: 37 Results Reviewed Results Reviewed: Laboratory Last Values Hgb A1c (Clinic) 6.7 % (4.0-6.0) H 05/18/25 14:36 Coding Level of Care Code Est Pt Level 4 (85076) Est Pt Prev Care 40-64y(98402) Diagnoses Encounter for general adult medical examination with abnormal findings Z00.01 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, essential I10 Lipid disorder E78.9 Diabetic nephropathy associated with diabetes mellitus due to underlying condition E08.21 Diabetes mellitus type: due to underlying condition Diabetic peripheral neuropathy E11.42 Moderate episode of recurrent major depressive disorder F33.1 Active/Remission status: currently active Major depression episode severity: moderate Diabetes 1.5, managed as type 1 E13.9 Class 1 obesity due to excess calories with serious comorbidity and body mass index (BMI) of 34.0 to 34.9 in adult E66.811; E66.09; Z68.34 Obesity classification: adult class 1 (BMI 30 - 34.9) Serious obesity comorbidity presence: with serious comorbidity Body mass index: BMI 34.0-34.9 Vitamin D deficiency E55.9 Assessment & Plan Assessment & Plan (1) Encounter for general adult medical examination with abnormal findings: Code(s): Z00.01 - Encounter for general adult medical examination with abnormal findings Category: Medical (2) 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, essential: Code(s): I10 - Essential (primary) hypertension Category: Medical (3) Lipid disorder: Code(s): E78.9 - Disorder of lipoprotein metabolism, unspecified Category: Medical (4) Diabetic nephropathy: Code(s): E11.21 - Type 2 diabetes mellitus with diabetic nephropathy Category: Medical Qualifiers: Diabetes mellitus type: due to underlying condition Qualified Code(s): E08.21 - Diabetes mellitus due to underlying condition with diabetic nephropathy (5) Diabetic peripheral neuropathy: Code(s): E11.42 - Type 2 diabetes mellitus with diabetic polyneuropathy Category: Medical (6) Depression, major, recurrent: Code(s): F33.9 - Major depressive disorder, recurrent, unspecified Category: Medical Qualifiers: Active/Remission status: currently active Major depression episode severity: moderate Qualified Code(s): F33.1 - Major depressive disorder, recurrent, moderate (7) Diabetes 1.5, managed as type 1: Code(s): E13.9 - Other specified diabetes mellitus without complications Category: Medical (8) Obesity due to excess calories: Code(s): E66.09 - Other obesity due to excess calories Category: Medical Qualifiers: Obesity classification: adult class 1 (BMI 30 - 34.9) Serious obesity comorbidity presence: with serious comorbidity Body mass index: BMI 34.0-34.9 Qualified Code(s): E66.811 - Obesity, class 1; E66.09 - Other obesity due to excess calories; Z68.34 - Body mass index [BMI] 34.0-34.9, adult (9) Vitamin D deficiency: Code(s): E55.9 - Vitamin D deficiency, unspecified Category: Medical Plan Patient Instructions - You May stop taking penicillin for now. - Please keep an eye on your legs for any signs of infection after stopping the penicillin. - Discuss your tremor, stumbling, and balance problems with your neurologist, Dr. Malone - Get the ordered blood tests done before your next visit. - You should do the blood tests while fasting so we can check your cholesterol. - Your next appointment will be in four months. - A prescription for Zepbound will be sent to your pharmacy. - [facility] if [facility] received the [facility] vaccine. - Your next colonoscopy is due next year. Orders: Orders Complete Blood Count Auto Diff 3 Months E08.21 - Diabetes mellitus due to underlying condition with diabetic nephropathy, E11.42 - Type 2 diabetes mellitus with diabetic polyneuropathy, E13.9 - Other specified diabetes mellitus without complications, E55.9 - Vitamin D deficiency, unspecified, E66.09 - Other obesity due to excess calories, E78.9 - Disorder of lipoprotein metabolism, unspecified, F33.1 - Major depressive disorder, recurrent, moderate, I10 - Essential (primary) hypertension, Z00.01 - Encounter for general adult medical examination with abnormal findings Lipid Panel 3 Months E08.21 - Diabetes mellitus due to underlying condition with diabetic nephropathy, E11.42 - Type 2 diabetes mellitus with diabetic polyneuropathy, E13.9 - Other specified diabetes mellitus without complications, E55.9 - Vitamin D deficiency, unspecified, E66.09 - Other obesity due to excess calories, E78.9 - Disorder of lipoprotein metabolism, unspecified, F33.1 - Major depressive disorder, recurrent, moderate, I10 - Essential (primary) hypertension, Z00.01 - Encounter for general adult medical examination with abnormal findings Hemoglobin A1c 3 Months E08.21 - Diabetes mellitus due to underlying condition with diabetic nephropathy, E11.42 - Type 2 diabetes mellitus with diabetic polyneuropathy, E13.9 - Other specified diabetes mellitus without complications, E55.9 - Vitamin D deficiency, unspecified, E66.09 - Other obesity due to excess calories, E78.9 - Disorder of lipoprotein metabolism, unspecified, F33.1 - Major depressive disorder, recurrent, moderate, I10 - Essential (primary) hypertension, Z00.01 - Encounter for general adult medical examination with abnormal findings TSH reflex Free T4 3 Months E08.21 - Diabetes mellitus due to underlying condition with diabetic nephropathy, E11.42 - Type 2 diabetes mellitus with diabetic polyneuropathy, E13.9 - Other specified diabetes mellitus without complications, E55.9 - Vitamin D deficiency, unspecified, E66.09 - Other obesity due to excess calories, E78.9 - Disorder of lipoprotein metabolism, unspec ified, F33.1 - Major depressive disorder, recurrent, moderate, I10 - Essential (primary) hypertension, Z00.01 - Encounter for general adult medical examination with abnormal findings Microalbumin, Random (w Creat) 3 Months E08.21 - Diabetes mellitus due to underlying condition with diabetic nephropathy, E11.42 - Type 2 diabetes mellitus with diabetic polyneuropathy, E13.9 - Other specified diabetes mellitus without complications, E55.9 - Vitamin D deficiency, unspecified, E66.09 - Other obesity due to excess calories, E78.9 - Disorder of lipoprotein metabolism, unspecified, F33.1 - Major depressive disorder, recurrent, moderate, I10 - Essential (primary) hypertension, Z00.01 - Encounter for general adult medical examination with abnormal findings Comprehensive [place]. Panel Fast 3 Months E08.21 - Diabetes mellitus due to underlying condition with diabetic nephropathy, E11.42 - Type 2 diabetes mellitus with diabetic polyneuropathy, E13.9 - Other specified diabetes mellitus without complications, E55.9 - Vitamin D deficiency, unspecified, E66.09 - Other obesity due to excess calories, E78.9 - Disorder of lipoprotein metabolism, unspecified, F33.1 - Major depressive disorder, recurrent, moderate, I10 - Essential (primary) hypertension, Z00.01 - Encounter for general adult medical examination with abnormal findings AMB Hemoglobin A1c Today Z13.9 - Encounter for screening, unspecified Medications: Refilled tirzepatide (weight loss) for 4 weeks 5 mg (0.5 mL) subcut QWEEK 6.5 mL 0RF 90 days On Hold penicillin V potassium Hold Comment: Doctor's Order 250 mg PO BID 90 days 180 tabs 3RF
--- OUTSIDE RECORDS SUMMARY | 2025-05-18 14:31 | XMS_ITS | Clinical Summary ---
Author Organization [facility] Address [address] [place] [address] Phone Care Team Providers Care Wellness Manager Name Role Phone Gabby Kelly MD Primary Care Provider [phone] Allergies No known active allergies Medications Multiple Vitamins-[place] als (MULTIVITAMIN ADULT EXTRA C PO) Take [...] Influenza Vaccine (#1) 2025 Insurance Medicaid [place] [facility] [place] [facility] Care Teams Wellness Manager Relationship Specialty Start Date End Date Gabby Kelly MD [facility] [place] [address] PCP - General 07/08/20
--- OUTSIDE RECORDS SUMMARY | 2025-05-18 14:31 | XMS_ITS | Patient Health Record ---
Author Organization [facility] Tavon brittany Lyndsey Address [address] [facility] [place] [address] Care Team Providers Care Pilates Coordinator Name Role Phone Robin Pierre Primary Care Provider Unavailabl e Black, Stephanie Unavailable [phone] Reason For Referral No Information Medications Medication [...] Problem Acquired hammer toe of right foot ([id number] ) Other hammer toe(s) (acquired), right foot (M20.41) Active confirmed Problem Acquired hammer toe of left foot ([id number] ) Other hammer toe(s) (acquired), left foot (M20.42) Active confirmed Problem Polyneuropathy due to type 2 diabetes mellitus (005794147) Type 2 diabetes mellitus with diabetic polyneuropathy (E11.42) Active confirmed Plan Of Treatment Pending Test Test Name Order Date X ray : Foot, right 3V 09/16/2017 [id number] NAIL, 1-5 09/05/2018 [id number] NAIL, 1-5 03/18/2017 [id number] NAIL, 1-5 09/16/2017 [id number] Plate 09/05/2018 [id number] SKIN LESIONS, 2 TO 4 09/06/19 19 [id number] NAIL(S) 09/05/2018 [id number] NAIL(S) 09/16/2017 [id number] NAIL(S) 03/18/2017 Medical (General) History Medical History History ICD Code Anxiety Back,Hip,and Knee pain Depression Diabetic Gout High blood pressure Numbness Surgical History Surgery Date(Month/Year) Hospitalization History Reason Date(Month/Year) [facility]17 [facility] [place] - recurrent cellulitis 07/2018
--- OUTSIDE RECORDS SUMMARY | 2025-05-18 14:31 | XMS_ITS | Clinical Summary ---
Author Organization [facility] Address [address] [place] [address] Care Team Providers Care Aircraft Time Clerk Name Role Phone Gabby Kelly Primary Care Provider [phone] Allergies No known active allergies Medications amLODIPine [...] 2025 , 04/08/2023, 02/26/2023, Additional history exists COVID-19 Vaccine ( - 2024-2 6 season) 2025 03/30/2024, 04/08/2023, 03/09/2022, Additional history exists DTaP,Tdap,and Td Vaccines (3 - Td or Tdap) 01/31/2030 02/01/2020, 09/09/2018 Insurance [facility] Care Teams Aircraft Time Clerk Relationship Specialty Start Date End Date Gabby Kelly [facility] ORALIA Wallace [phone] PCP - General Internal Medicine 08/15/24
== END 2025-05-18 14:40 | disposition home or self-care (01) ==
LOC: HO.HMCC 14:07
PROVIDERS: PCP Internal Medicine; Visit Provider Internal Medicine
DX: Z00.01 Encounter for general adult medical examination with abnormal findings (principal); E11.21 Type 2 diabetes mellitus with diabetic nephropathy; E11.42 Type 2 diabetes mellitus with diabetic polyneuropathy; F33.1 Major depressive disorder, recurrent, moderate; I10 Essential (primary) hypertension; E78.9 Disorder of lipoprotein metabolism, unspecified; E66.811 Obesity, class 1; E66.09 Other obesity due to excess calories; Z68.34 Body mass index [BMI] 34.0-34.9, adult; E55.9 Vitamin D deficiency, unspecified

== ENCOUNTER → 2025-05-18 14:07 | Outpatient (BNVA) | payer OTHER, SELFPAY | PROVIDERS: PCP Internal Medicine; Visit Provider Internal Medicine | DX: Z00.01 Encounter for general adult medical examination with abnormal findings (principal); N40.0 Benign prostatic hyperplasia without lower urinary tract symptoms; R25.1 Tremor, unspecified; R26.89 Other abnormalities of gait and mobility; M54.50 Low back pain, unspecified; E78.5 Hyperlipidemia, unspecified; M10.9 Gout, unspecified; I10 Essential (primary) hypertension; E11.42 Type 2 diabetes mellitus with diabetic polyneuropathy; E11.21 Type 2 diabetes mellitus with diabetic nephropathy; F33.1 Major depressive disorder, recurrent, moderate; E66.811 Obesity, class 1; E66.09 Other obesity due to excess calories; E55.9 Vitamin D deficiency, unspecified; Z68.34 Body mass index [BMI] 34.0-34.9, adult | CPT/HCPCS: 83036 ==